=== PATIENT | female | born 1970 | race Caucasian/White ===

== ENCOUNTER → 2024-09-24 | Outpatient (CLI) | payer BC, SELFPAY ==
[2024-09-25 15:39] LABS: Clostridium Difficile PCR Negative (Negative)
[2024-10-02 06:27] LABS: Helicobacter pylori Ag, Stool* NOT DETECTED (NOT DETECTED)
== END | disposition home or self-care (01) ==
LOC: SLDO 13:20
PROVIDERS: PCP Family Medicine; Referring Provider Nurse Practitioner Family; Visit Provider Nurse Practitioner Family
DX: R19.7 Diarrhea, unspecified (principal)
CPT/HCPCS: 87015; 87045; 87046; 87177; 87209; 87338; 87493; 87899

== ENCOUNTER 2024-11-21 16:35 | Inpatient (IN) | payer BC, SELFPAY ==
[2024-11-21] VITALS (21 sets, daily range): BP systolic 68–99; BP diastolic 42–67; PULSE 98–108; RESP 12–26; TEMP 36.4–36.7; O2SAT 78–98; BMI 35.7
--- NOTE | 2024-11-21 18:00 | EKG_ITS ---
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
--- NOTE | 2024-11-21 18:19 | EDRME_ITS ---
Rapid Medical Screening Exam RME Arrival date/time: 11/21/24 16:35 Chief Complaint: Abdominal Pain Time Seen by Provider: 11/21/24 18:19 Vital signs: Vital Signs Temperature 98.1 F 11/21/24 17:59 Pulse Rate 100 11/21/24 17:59 Respiratory Rate 16 11/21/24 17:59 Pulse Oximetry (%) 95 11/21/24 17:59 Oxygen Delivery Method Room Air 11/21/24 17:59 RME Narrative: 54-year-old female with history of thyroid disease, hypertension, acute renal failure presenting to the emergency department with multiple days of nonbloody diarrhea with associated abdominal pain. Patient is dizzy and hypotensive in triage but awake and talking in full sentences. On exam the patient appears slightly pale, cap refill is normal. Talking in full sentences. Bilateral upper extremities with ecchymosis which is chronic No pedal edema Lungs Clear Heart tachycardia Differential diagnosis is good to be dehydration secondary to fluid loss secondary to diarrhea, electrolyte abnormality, GI bleed, sepsis, intra- abdominal catastrophe to include colitis, doubt AAA. Patient is afebrile with a temp of 98.1. She will be placed in room 5 and I will start with 30 mL/kg and send sepsis labs even though at this time she does not screen for sepsis. Patient has agreed to Larkin catheter..
--- NOTE | 2024-11-21 18:23 | XR_ITS ---
Examination: AP chest single view Technique one AP supine portable chest single view Exam date and time: August 21, 2023 1338 hrs. Indications: Hypertension today. Findings: Early pneumonia right upper lobe Bibasilar bronchiectasis Mild enlargement cardiac contour Mild to moderate vascular congestion Old right-sided rib fractures Impression: Early pneumonia right upper lobe
[2024-11-21] MEDS: SODIUM CHLORIDE 0.9% 1000 ML 1,710 ML 1710 ML IV (19:07)
[2024-11-21 19:27] LABS: Lactate (Lactic Acid) 3.2 mMol/L (0.4-2.0)
[2024-11-21 19:31] LABS: Basophils % (Auto) 1 % (0-2.5); Eosinophils % (Auto) 0 % (0-10); Hematocrit 34.9 % (36.0-46.0); Hemoglobin 11.3 g/dL (12.0-16.0); Immature Granulocytes % (Auto) 1 % (0-0); Immature Granulocytes Auto 0.04 Thou/mm3 (0.00-0.00); Lymphocytes # (Auto) 0.4 Thou/mm3 (1.0-4.8); Lymphocytes % (Auto) 7 % (10-50); Mean Corpuscular HGB Conc 32.4 g/dl (31.0-37.0); Mean Corpuscular Hemoglobin 32.3 pg (25.0-35.0); Mean Corpuscular Volume 100 fL (80-100); Monocytes # (Auto) 0.1 Thou/mm3 (0.0-0.8); Monocytes % (Auto) 3 % (0-12); Neutrophils # (Auto) 4.4 Thou/mm3 (1.8-7.7); Neutrophils % (Auto) 89 % (37-80); Nucleated Red Blood Cell % 0 /100 WBC (0); Platelet Count 409 Thou/mm3 (140-440); RDW Standard Deviation 49.9 fL (36.4-46.3); White Blood Count 4.9 Thou/mm3 (3.6-11.0)
--- NOTE | 2024-11-21 19:37 | PD.EDABDPN ---
ED Abdominal Pain RME/HPI General Chief Complaint: Abdominal Pain Stated complaint: ABD PAIN / BLOATING; LEFT SHOULDER PAIN, VOMITING Time seen by provider: 11/21/24 18:19 Arrival date/time: 11/21/24 16:35 Source: patient Mode of arrival: ambulatory Limitations: no limitations RME / HPI RME / HPI narrative: --- DR. KIRBY MAIN ED EVALUATION: 54-year-old female with history of thyroid disease, hypertension, acute renal failure presenting to the emergency department with multiple days of non-bloody diarrhea with associated abdominal pain. Patient is dizzy and hypotensive in triage but awake and talking in full sentences. Related Data Home Medications ?Medication ?Instructions ?Recorded ?Confirmed levothyroxine 100 mcg tablet 112 mcg PO ACBR #0 tabs 05/10/17 08/07/23 (Synthroid) montelukast 10 mg tablet 1 tab PO QDAY ##0 05/10/17 08/07/23 (Singulair) losartan 50 mg tablet 50 mg PO QDAY 08/22/21 01/22/22 conj estrogen-medroxyprogesterone 1 tab PO QDAY 10/20/21 08/07/23 0.625 mg-5 mg tablet (Prempro) lisinopril 20 mg tablet 20 mg PO QDAY 08/04/23 08/04/23 prednisone 10 mg tablet 10 mg PO QDAY 08/04/23 08/04/23 albuterol sulfate 90 mcg/actuation 2 inh inhalation Q4H PRN Wheezing 08/07/23 08/07/23 aerosol inhaler Previous Rx's ?Medication ?Instructions ?Recorded hydrocodone 10 mg-acetaminophen 1 tab PO Q4H PRN pain #6 tabs 08/19/21 325 mg tablet Allergies Allergy/AdvReac Type Severity Reaction Status Date / Time sulfamethoxazole Allergy Unknown SERUM Verified 11/21/24 16:38 SICKNESS trimethoprim Allergy Unknown SERUM Verified 11/21/24 16:38 SICKNESS Review of Systems Review of Systems Systems Reviewed: All systems reviewed, normal except as documented Past Medical History Past Medical History NEUROLOGIC: Negative Neurological Disorders or Seizures CARDIAC: Positive Cardiac Disorders and Hypertension; Negative Congestive Heart Failure RESPIRATORY: Positive Asthma; Negative Chronic Obstructive Pulmonary Disease (COPD) GASTROINTESTINAL: Positive Gastrointestinal Disorders, Ulcer and Obesity; Negative Hepatitis or Colorectal Cancer GENITOURINARY: Positive Genitourinary Disorders and Kidney Stones; Negative Renal Disease REPRODUCTIVE: Positive Endometriosis; Negative Breast Cancer MUSCULOSKELETAL: Positive Musculoskeletal Disorders and Rheumatoid Arthritis; Negative Bone Cancer ENT: Positive Ear Infection ENDOCRINE: Positive Endocrine Disorders, Hypoglycemia, Hyperthyroidism and Hypothyroidism; Negative Diabetes Mellitus Type 1 or Diabetes Mellitus Type 2 HEMATOLOGIC: Positive Blood Disorders and Anemia; Negative Sickle Cell Disease PSYCHO/SOCIAL: Positive Depression and Anxiety OTHER HISTORY: Positive Autoimmune Disease, Falls and Chicken Pox; Negative Blood Transfusions, Blood Transfusion Reaction, Anesthesia Reactions, Organ Transplant, MRSA, VRSA, Vancomycin-Resistant Enterococci, Breast Cancer, Cervical Cancer, Colorectal Cancer, Lung Cancer or Ovarian Cancer Family History FAMILY HISTORY: Positive Family Cardiac Disorders, Family Surgery and Family Anesthesia Reaction; Negative Family Psychiatric Problems, Family Respiratory Disorders, Family Gastrointestinal Problems or Family Cancer Surgical History SURGICAL: Positive Gastric Bypass Surgery; Negative Cardiac Surgery, Endocrine Surgery, Ear Surgery, Nephrectomy, Joint Replacement, Neurologic Surgery, Mastectomy, Tubal Ligation or Organ Transplant Social History SMOKING STATUS: Never smoker SUBSTANCE USE: does not use ED Exam Narrative Physical exam: GENERAL: In general the patient is awake, interactive, in an emergency department rlima. She is talking in full sentences. HEAD/EYES/EARS/NOSE/THROAT: normo-cephalic, atraumatic, mucus membranes are moist. No cervical tenderness palpation midline. Supple neck. CARDIOVASCULAR: Tachycardic. The patient appears slightly pale, normal capillary refill. CHEST/PULMONARY: normal chest rise and fall, good air movement, clear to auscultation bilaterally, normal inspiratory to expiratory ratios without evidence of respiratory distress. ABDOMEN: soft, not tender, no masses appreciated BACK: normal range of motion without pain. NEUROLOGICAL: cranio-facial features are symmetric, moves all four extremities equally without obvious limitations or weakness. EXTREMITY: no tenderness to palpation over the long bones or large joints of the bilateral upper and lower extremities, no joint swelling, no joint erythema, no signs of trauma, no unilateral leg swelling and no peripheral edema. Bilateral upper extremities with ecchymosis which is chronic. SKIN: warm, dry, well-perfused, no jaundice, no rash, no telangiectasias or petechia. PSYCH: calm, cooperative, no evidence of psychosis or agitation General Limitations: Present no limitations Course Course Course Narrative: Chest x-ray has been ordered to aid in determining etiology of hypotension/cough. Refer to ROS for associated respiratory symptoms. See physical exam for additional information if not listed in ROS 2222: Sepsis alert initiated. Orders made at this time are congruent with ED Adult Sepsis Order List. Re-evaluation is to be completed. 2227: IVC collapses, 3rd liter started. hgb stable. 2300: Sepsis reassessment performed consisting of lab review, vitals, physical exam including auscultation of heart, lungs, and visual evaluation of capillary refills, mucosal membranes and extremities. Quality Measures Current suspected stage: sepsis Possible source: unknown Blood cultures ordered: yes Antibiotic ordered: Yes Pertinent labs: 11/21/24 11/21/24 18:57 22:58 Lactic Acid 3.2 H mMol/L 2.3 H mMol/L (0.4-2.0) (0.4-2.0) Procalcitonin 19.01 H ng/ml (0.0-0.49) sepsis Orders Category Date Time Status Fresh Work Inspector STAT Care 11/21/24 22:33 Active Continuous Pulse Oximetry STAT Care 11/21/24 22:33 Active EKG (ED ONLY) *Do not use* NOW Care 11/21/24 18:00 Completed L[place]in to [place] Routine Care 11/21/24 18:22 Ordered NPO STAT Care 11/21/24 22:33 Active Strict Intake and Output Routine Care 11/21/24 22:[address] angio chest abdomen pelvis Stat Exams 11/21/24 22:33 Ordered CXRP [XR chest 1V portable] Stat Exams 11/21/24 18:23 Completed EKG (ED Only) Stat Exams 11/21/24 18:00 Draft BMP [Basic Metabolic Panel] Stat Lab 11/21/24 22:58 Received BNP [B-Type Natriuretic Peptide] Stat Lab 11/21/24 18:57 Completed Blood Culture (Lab) Stat Lab 11/21/24 22:48 Received CBC Stat Lab 11/21/24 18:57 Completed Comprehensive Metabolic Panel Stat Lab 11/21/24 18:57 Completed LDH (Lactate Dehydrogenase) Stat Lab 11/21/24 22:58 Received Lactic Acid [Lactate (Lactic Acid)] Stat Lab 11/21/24 18:57 Completed Lactic Acid, 3 HR Stat Lab 11/21/24 22:58 Completed Phosphorous Stat Lab 11/21/24 22:58 Received Procalcitonin Stat Lab 11/21/24 18:57 Completed Troponin I Stat Lab 11/21/24 18:57 Completed Urinalysis Stat Lab 11/21/24 22:33 Ordered Urinalysis, C/S if Indicated Stat Lab 11/21/24 21:37 Completed Urine Culture Stat Lab 11/21/24 22:33 Ordered Azithromycin Inj [Zithromax Inj] 500 mg Med 11/22/24 21:00 Pending Sodium Chloride 0.9% 250 ml [Ns] 250 ml IV QDAY@2100 Azithromycin Inj [Zithromax Inj] 500 mg Med 11/21/24 22:30 Discontinued Sodium Chloride 0.9% 250 ml [Ns] 250 ml IV X1 Sodium Chloride 0.9% 1000 ml [Ns] 1,000 ml Med 11/21/24 20:26 Discontinued IV 999 mls/hr Sodium Chloride 0.9% 1000 ml [Ns] 1,000 ml Med 11/21/24 22:19 Discontinued IV 999 mls/hr Sodium Chloride 0.9% 1000 ml [Ns] 1,710 ml Med 11/21/24 18:22 Discontinued IV 1,710 mls/hr cefTRIAXone [Rocephin] 1,000 mg Med 11/21/24 22:16 Discontinued Sodium Chloride 0.9% (P) [Ns 0.9% (P)] 50 ml IV X1 Oxygen Delivery NOW RT 11/21/24 22:33 Active Vital Signs Vital signs: Vital Signs Temperature 98.1 F 11/21/24 17:59 Pulse Rate 100 11/21/24 17:59 Respiratory Rate 16 11/21/24 17:59 Pulse Oximetry (%) 95 11/21/24 17:59 Oxygen Delivery Method Room Air 11/21/24 17:59 Procedures -ED Procedure Comment EKG manual reading, 11/21/2024 1859 hours, my interpretation: Sinus rhythm. No ST elevations or depressions. QTc is 393. Impression normal EKG. Abdominal Pain MDM MDM Narrative MDM Narrative:: Differential diagnosis is dehydration secondary to fluid loss secondary to diarrhea, electrolyte abnormality, GI bleed, sepsis, intra-abdominal catastrophe to include colitis, doubt AAA. Patient is afebrile with a temp of 98.1. She will be placed in room 5 and I will start with 30 mL/kg and send sepsis labs even though at this time she does not screen for sepsis. Patient has agreed to Larkin catheter. ? Scribe Attestation: I, Janice Greer, am scribing for and in the presence of Dr. Kate. Provider Notation: Although this document has been carefully reviewed, there may still be some phonetic and other typographical errors. These errors are purely grammatical due to imperfections in the software program and should not be construed in any way to compromise the substance of the patient's medical care during this visit. Patient data External records reviewed:: [facility] previous records Clinical information provided by:: patient Social determinants that could affect healthcare access:: none Patient has the following chronic illnesses:: thyroid disease, hypertension, acute renal failure, asthma, endometriosis, rheumatoid arthritis, hyperthyroidism, anxiety, depression, anemia, gastric bypass surgery How is presenting disease/condition affected by chronic disease/condition?: uneffected by Evaluation data The following diagnostics were reviewed and interpreted by me:: lab results, radiology exam(s) and EKG tracing(s) Lab and/or radiology exams considered but not ordered:: None Interpretation Summary: CXR: Patient had a chest xray that was ordered, reviewed, and interpreted by myself while the patient was actively inside the emergency department receiving diagnostic evaluation, the xray was medically necessary. Chest X-Ray Findings: Early pneumonia right upper lobe Bibasilar bronchiectasis Mild enlargement cardiac contour Mild to moderate vascular congestion Old right-sided rib fractures. Diagnostic impression: Early pneumonia right upper lobe Medications / Prescriptions Medications or Prescriptions considered but not ordered:: None Medication administrations:: Medication Administration History Azithromycin 500 mg/ Sodium (Chloride) 250 mls @ 250 mls/hr IV QDAY@2100 ZAK Stop: 11/29/24 20:59 Discontinued Medications Sodium Chloride (Ns) 1,710 mls @ 1,710 mls/hr 30 ml/kg infuse over 60 min (1710 ml) IV .Q1H ONE Stop: 11/21/24 19:21 Last Infusion: 11/21/24 20:20 Dose: Infused Documented By: Admin: 11/21/24 19:07 Dose: 1,710 mls/hr Documented By: DEVIN Sodium Chloride (Ns) 1,000 mls @ 999 mls/hr IV .Q1H1M ONE Stop: 11/21/24 21:26 Last Infusion: 11/21/24 21:40 Dose: Infused Documented By: Admin: 11/21/24 20:29 Dose: 999 mls/hr Documented By: CCT Ceftriaxone Sodium 1,000 mg/ (Sodium Chloride) 50 mls @ 100 mls/hr IV X1 ONE Stop: 11/21/24 22:45 Last Infusion: 11/21/24 23:30 Dose: Infused Documented By: Admin: 11/21/24 23:00 Dose: 100 mls/hr Documented By: CCT Azithromycin 500 mg/ Sodium (Chloride) 250 mls @ 250 mls/hr IV X1 ONE Stop: 11/21/24 23:29 Last Admin: 11/21/24 23:35 Dose: 250 mls/hr Documented By: GB Sodium Chloride (Ns) 1,000 mls @ 999 mls/hr IV .Q1H1M ONE Stop: 11/21/24 23:19 Last Infusion: 11/21/24 23:30 Dose: Infused Documented By: Admin: 11/21/24 22:27 Dose: 999 mls/hr Documented By: CCT As above Consultations Consultation(s) initiated? (list below): Yes Consultation #1 (Physician, Specialty, Details): Hospitalist team made aware of the patient?s HPI, PMHx, lab and/or radiology results. Treatment plan was discussed. Will admit for further evaluation and management. Accepts patient for admission. Time: 00:07 Diagnosis Differential diagnosis abdominal pain: other (dehydration secondary to fluid loss secondary to diarrhea, electrolyte abnormality, GI bleed, sepsis, intra-abdominal catastrophe to include colitis) Most likely diagnosis given after review of the tests above:: Acute renal failure, Nausea, vomiting and diarrhea, Sepsis, Community acquired pneumonia Admission Indicated Admission indicated?: indicated Admission Request Was there a request for admission?: Yes Admission Attestation Admission request attestation: Discussed case with [] from Hospitalist service regarding admission. Discussed patients ED course, exam findings, labs, and radiology results. The Hospitalist [agrees,declines] to accept the patient for admission. Disposition Plan Disposition Plan: Admit Critical Care Time Critical Care Time Critical Care Time: Yes Total Critical Care Time (min.): 60 Attestation: The high probability of sudden, clinically significant deterioration in the patient?s condition required the highest level of my preparedness to intervene urgently. The services I provided to this patient were to treat and/or prevent clinically significant deterioration. Services included the following: chart data review, reviewing nursing notes and/or old charts, documentation time, strategic solutions consultant collaboration regarding findings and treatment options, medication orders and management, direct patient care, vital sign assessments and ordering, interpreting and reviewing diagnostic studies and lab tests. Aggregate critical care time includes only time during which I was engaged in work directly related to the patient?s care, as described above, whether at bedside or elsewhere in the Emergency Department. It did not include time spent performing other reported procedures or the services of residents, students, nurses or physician assistants. Discharge Plan Plan Patient Disposition: Admit Acute Care w/in Hospital Patient condition on transfer: Stable Prescriptions/Referrals Prescriptions/Med Rec: No Action Prempro 0.625-5 mg tablet 1 tab PO QDAY levothyroxine [Synthroid] 100 MCG tablet 112 mcg PO ACBR Qty: 0 montelukast [Singulair] 10 MG tablet 1 tab PO QDAY Qty: 0 hydrocodone-acetaminophen 10-325 mg tablet 1 tab PO Q4H MDD 4 PRN (Reason: pain) Qty: 6 0RF Hold Instructions: Resume on 08/14/23. Please hold until evaluated by neurology losartan 50 mg tablet 50 mg PO QDAY Patient Comments: TAKE 1 TABLET BY MOUTH EVERY DAY prednisone 10 mg tablet 10 mg PO QDAY Patient Comments: TAKE 1 TABLET BY MOUTH EVERY DAY lisinopril 20 mg Tablet 20 mg PO QDAY albuterol sulfate 90 mcg/actuation HFA aerosol inhaler 2 inh INHALATION Q4H PRN (Reason: Wheezing) Patient Comments: TAKE 2 PUFFS BY MOUTH EVERY 4 HOURS NEEDED Referrals: Corazon Hermosillo MD [Primary Care Provider] - In 1 week Problem List Clinical Impression: Acute renal failure, Nausea, vomiting and diarrhea, Sepsis, Community acquired pneumonia Patient/Caregiver Discharge Instructions Print Language: Yi Stand Alone Forms: Brenda Award Info., Patient Portal Info Letter
[2024-11-21 19:47] LABS: B-Type Natriuretic Peptide 21 pg/mL (0-100)
[2024-11-21 19:55] LABS: Alanine Aminotransferase 20 U/L (10-49); Albumin, Serum 3.1 gm/dL (3.5-5.0); Albumin/Globulin Ratio 1.7 (1.2-2.2); Alkaline Phosphatase 81 U/L (46-116); Anion Gap 13 (7-16); BUN/Creatinine Ratio 18 Ratio (12-20); Bilirubin,Total 0.4 mg/dL (0.3-1.2); Blood Urea Nitrogen 59 mg/dL (9-23); Calcium 7.8 mg/dL (8.3-10.6); Calcium (Corrected) 8.5 mg/dL (8.5-10.1); Carbon Dioxide 18.3 mMol/L (20.0-31.0); Chloride 98 mMol/L (98-107); Creatinine (Component) 3.2 mg/dL (0.6-1.3); Estimated Creatinine Clearance 23.2 mL/min (>60); Globulin 1.8 gm/dL (2.3-3.5); Glucose 161 mg/dL (74-106); Osmolality,Calculated 278 (275-295); Potassium 5.3 mMol/L (3.4-5.1); Procalcitonin 19.01 ng/ml (0.0-0.49); Sodium 129 mMol/L (136-145); Total Protein 4.9 gm/dL (5.7-8.2); Troponin I < 0.020 ng/mL (0.0-0.045); eGFR 17 See Note
[2024-11-21] MEDS: SODIUM CHLORIDE 0.9% 1000 ML 1,000 ML 999 ML IV ×2 (20:29→22:27)
[2024-11-21 21:51] LABS: Collection Type, Urine Catheter; WBC,Urine 0 /hpf (0-5)
[2024-11-21 22:04] LABS: Bilirubin,Urine Negative (Negative); Blood,Urine 1+ (Negative); Clarity,Urine Clear (Clear/Hazy); Color,Urine Lt-Yellow (Lt Yel-Yel); Glucose, Urine Negative (Negative); Ketones,Urine Negative (Negative); Specific Gravity,Urine 1.013 (1.001-1.035)
[2024-11-21 22:05] LABS: Bacteria,Urine Rare; Culture Indicated,Urine Not Indicated; Leukocyte Esterase,Urine Negative (Negative); Nitrite,Urine Negative (Negative); Protein,Urine 1+ (Neg - Trace); RBC,Urine 1 /hpf (0-3); Squamous Epithelial Cell,Urine < 1 /hpf (0-5); Urobilinogen,Urine Negative mg/dL (0.0-1.0)
--- NOTE | 2024-11-21 22:10 | PC.NURSE ---
Dr. Dejesus at bedside. Aware of manual BP 85/60 HR 102, pt already received 2700ml of NS. Urine Output 550ml. Per MD colmenares to infuse another 1L NS.
[2024-11-21 22:22] LABS: Reflex Lactate? Y
[2024-11-21] MEDS: cefTRIAXone 1,000 MG in SODIUM CHLORIDE 0.9% (P) 50 ML 100 MG IV (23:00)
[2024-11-21 23:07] LABS: Lactic Acid, 3 HR 2.3 mMol/L (0.4-2.0)
[2024-11-21] MEDS: AZITHROMYCIN INJ 500 MG in SODIUM CHLORIDE 0.9% 250 ML 250 ML 250 MG IV (23:35)
[2024-11-21 23:53] LABS: Anion Gap 10 (7-16); BUN/Creatinine Ratio 22 Ratio (12-20); Blood Urea Nitrogen 54 mg/dL (9-23); Chloride 107 mMol/L (98-107); Creatinine (Component) 2.5 mg/dL (0.6-1.3); Estimated Creatinine Clearance 29.7 mL/min (>60); Glucose 128 mg/dL (74-106); LDH (Lactate Dehydrogenase) 352 U/L (120-246); Osmolality,Calculated 288 (275-295); Phosphorous 6.4 mg/dL (2.4-5.1); Potassium 5.3 mMol/L (3.4-5.1); Sodium 136 mMol/L (136-145); eGFR 22 See Note
[2024-11-21 23:59] LABS: Calcium 6.8 mg/dL (8.3-10.6)
[2024-11-22] VITALS (204 sets, daily range): BP systolic 58–194; BP diastolic 40–140; PULSE 48–134; RESP 12–96; TEMP 35.8–36.3; O2SAT 80–99; BMI 43.8
--- NOTE | 2024-11-22 00:15 | PC.NURSE ---
Resident Dr. Maldonado at bedside. Pt is alert/oriented x3. Respirations are even and unlabored. No s/s of acute distress noted.
[2024-11-22 00:22] LABS: Aspartate Amino Transferase 45 U/L (0-34)
[2024-11-22] MEDS: RINGERS LACTATED 500 ML 500 ML 999 ML IV (00:59)
--- NOTE | 2024-11-22 00:59 | PD.RESHP ---
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 She follows up with her PCP Dr. Hermosillo. She presented today with a chief complaint of intractable diarrhea from 1 week. Patient stated that 1 week ago diarrhea started. It was described as watery, no blood or mucus and multiple episodes too much to count. She spends an entire night on the toilet. Associated with generalized weakness, malaise, decreased appetite, abdominal bloating/pain. Last episode just prior to presenting to the ED. Patient says she can tolerate food but has decreased appetite due to abdominal bloating and pain. She also feels to have a bowel movement shortly after eating. Denies any fever, vomiting or recent street food. Also denies any sick contacts. Of note patient recently traveled to [place] approximately 2 weeks ago. Returned from her trip on 10/30/2024. She reported to partaking in various street and restaurant food during her stay. On 11/16/2024 patient presented to her PCP who diagnosed her with pneumonia and prescribed her a 5-day course of azithromycin p.o. and prednisone 40 Mg p.o. daily x 5 days, completed on 11/20/2024. Upon review patient denies any chest pain, SOB, PND/orthopnea, palpitations, dizziness or headache. ED course: BP 87/67, pulse 105, RR 16, T97.7F, SpO2 98% on room air. Labs significant for Hb 11.3, HCT 34.9, NA 136, K5.3, BUN 54, CR 2.5, LA 2.3, Ca 6.8, Phos 6.4, LDH 352, Pro-Tello 19, TSH 5.41. Chest x-ray significant for mild RUL consolidation and bibasilar bronchiectasis. No signs of pulmonary edema or pleural effusion. In the ED patient received 4L normal saline IVF bolus, azithromycin and ceftriaxone IV x 1. Patient will be admitted for intractable diarrhea, viral versus bacterial. GI, Dr. Palacios consulted and is closely following the case. Review of Systems Review of Systems Narrative Review of Systems: GENERAL: Denies fever/chills or diaphoresis. HEENT: Denies headaches or visual changes. Denies discharge. Neuro: Denies unusual weakness or difficulty speaking. CARDIO: As above PULM: Denies SOB, couging or wheezing. GI: As above URO: Denies buring/itching/pain/urinary changes. [employer]: Menopause 6 years ago MSK/EXT/SKIN: Denies joint/skeletal/muschle pain, issues/changes in upper or lower extremities, itchiness, or superficial pain. PSYCH: Cooperative, pleasant mood & affect. The rest of the review of systems is otherwise negative. Past Medical History Past Medical History Comments PMH COMMENT: Past medical history: Hypothyroid x 30 years Rheumatoid arthritis x 20 years Essential hypertension Seasonal allergies Medication list: ? Albuterol inhaler as needed ? Hormone replacement therapy [combined] ? Prednisone 8?10 Mg p.o. daily ? Levothyroxine 125 mcg p.o. daily ? Lisinopril 20 Mg p.o. daily ? Montelukast 10 Mg p.o. daily ? Rinvoq Past surgical history: ? Lynn-en-Y gastric bypass 20 years ago ? Cholecystectomy 2018 ? Appendectomy 2018 ? 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 Marital Status: , no kids Tobacco use: Denies ETHO use: 2-3 drinks per year Illicit drug use: Denies Social History Note: lives with Family History: Family history of hypo and hyperthyroidism Mother?DM Father?VA in 60s Exam Vital Signs Temp Pulse Resp BP Pulse Ox O2 Del Method 97.7 F 105 H 16 87/59 L 97 Room Air 11/21/24 23:00 11/22/24 00:04 11/22/24 00:04 11/22/24 00:00 11/22/24 00:00 11/22/24 00:00 Narrative Exam Constitutional Alert, oriented x 3 and mild distress. Middle-aged, obese female. Decreased skin turgor HEENT Vision grossly intact. Patent nares. Trachea midline Respiratory Chest normal on inspection and clear auscultation bilaterally Cardiovascular S1 and S2 audible, RRR. No murmurs carotid bruit. JVD not assessed. Abdominal Soft, obese and generalized tenderness to palpation in all quadrants. BS + Genitourinary No bladder tenderness, no flank pain. Normal to palpation Musculoskeletal Extremities tone within normal limits. Trace LE edema Neurological CN II - XII grossly intact. Extremity motor and sensation grossly intact. Skin Warm, dry and intact. Ecchymoses on bilateral extensor surfaces of forearms Psychiatric Patient has good affect, is cooperative Results: Labs 11/22/24 05:00 11/22/24 02:34 Labs: Short CBC 11/21/24 Range/Units 18:57 WBC 4.9 (3.6-11.0) Thou/mm3 Hgb 11.3 L (12.0-16.0) g/dL Hct 34.9 L (36.0-46.0) % Plt Count 409 (140-440) Thou/mm3 BMP 11/21/24 11/21/24 18:57 22:58 Sodium 129 L 136 Potassium 5.3 H 5.3 H Chloride 98 107 Carbon Dioxide 18.3 L 19.0 L BUN 59 H 54 H Creatinine 3.2 H 2.5 H D Glucose 161 H 128 H Calcium 7.8 L 6.8 L* Cardiac Enzymes 11/21/24 Range/Units 18:57 Troponin I < 0.020 (0.0-0.045) ng/mL Liver Function 11/21/24 Range/Units 18:57 Total Bilirubin 0.4 (0.3-1.2) mg/dL AST 45 H (0-34) U/L ALT 20 (10-49) U/L Alkaline Phosphatase 81 (46-116) U/L Albumin 3.1 L (3.5-5.0) gm/dL Urine 11/21/24 Range/Units 21:37 Urine Color Lt-Yellow (Lt Yel-Yel) Urine Clarity Clear (Clear/Hazy) Urine pH 6.0 (5.0-7.0) Ur Specific [place] 1.013 (1.001-1.035) Urine Protein 1+ A (Neg - Trace) Urine Glucose (UA) Negative (Negative) Quality Measures Quality Measures sepsis Current suspected stage: ruled out Possible source: unknown Blood cultures ordered: yes Antibiotic ordered: Yes Medications Home Medications and Allergies Home Medications ?Medication ?Instructions ?Recorded ?Confirmed ?Type levothyroxine 100 mcg tablet 112 mcg PO ACBR #0 tabs 05/10/17 08/07/23 History (Synthroid) montelukast 10 mg tablet 1 tab PO QDAY ##0 05/10/17 08/07/23 History (Singulair) losartan 50 mg tablet 50 mg PO QDAY 08/22/21 01/22/22 History conj estrogen-medroxyprogesterone 1 tab PO QDAY 10/20/21 08/07/23 History 0.625 mg-5 mg tablet (Prempro) lisinopril 20 mg tablet 20 mg PO QDAY 08/04/23 08/04/23 History prednisone 10 mg tablet 10 mg PO QDAY 08/04/23 08/04/23 History albuterol sulfate 90 mcg/actuation 2 inh inhalation Q4H PRN Wheezing 08/07/23 08/07/23 History aerosol inhaler Allergies Allergy/AdvReac Type Severity Reaction Status Date / Time sulfamethoxazole Allergy Unknown SERUM Verified 11/21/24 16:38 SICKNESS trimethoprim Allergy Unknown SERUM Verified 11/21/24 16:38 SICKNESS Visit Medications Acetaminophen (Acetaminophen 325 Mg Tablet) 650 mg PO Q6H PRN PRN Reason: Fever >100.3 or pain Stop: 12/22/24 00:44 Hydrocodone Bitart/Acetaminophen (Hydrocodone/Apap 5/325 Tablet) 1 tab PO Q4HR PRN PRN Reason: PAIN SCALE 4-10(Mod-Sev Stop: 11/27/24 00:50 Al Hydrox/Mg Hydrox/Simethicone (Mg Hyd/Al Hyd/Sandie (Maalox Reg) Susp 30 Ml Udc) 30 ml PO Q4HR PRN PRN Reason: UPSET STOMACH/INDIGESTION Stop: 12/22/24 00:52 Albuterol/Ipratropium (Albuterol/Ipratropium (Duoneb) Rt Marichuy 3 Ml Nebu) 3 ml INH Q2HR PRN PRN Reason: SHORTNESS OF BREATH OR WHEEZE Stop: 12/22/24 00:44 Lactated Ringer's (Lactated Ringers) 500 mls @ 999 mls/hr IV .Q31M ONE Stop: 11/22/24 01:23 Ondansetron HCl (Ondansetron Inj 2 Mg/Ml Inj 2 Ml) 4 mg IV Q6H PRN; Protocol PRN Reason: NAUSEA OR VOMITING Stop: 12/22/24 00:50 Discontinued Medications Sodium Chloride (Ns) 1,710 mls @ 1,710 mls/hr 30 ml/kg infuse over 60 min (1710 ml) IV .Q1H ONE Stop: 11/21/24 19:21 Last Infusion: 11/21/24 20:20 Dose: Infused Sodium Chloride (Ns) 1,000 mls @ 999 mls/hr IV .Q1H1M ONE Stop: 11/21/24 21:26 Last Infusion: 11/21/24 21:40 Dose: Infused Ceftriaxone Sodium 1,000 mg/ (Sodium Chloride) 50 mls @ 100 mls/hr IV X1 ONE Stop: 11/21/24 22:45 Last Infusion: 11/21/24 23:30 Dose: Infused Azithromycin 500 mg/ Sodium (Chloride) 250 mls @ 250 mls/hr IV QDAY@2100 ZAK Stop: 11/29/24 20:59 Azithromycin 500 mg/ Sodium (Chloride) 250 mls @ 250 mls/hr IV X1 ONE Stop: 11/21/24 23:29 Last Admin: 11/21/24 23:35 Dose: 250 mls/hr Sodium Chloride (Ns) 1,000 mls @ 999 mls/hr IV .Q1H1M ONE Stop: 11/21/24 23:19 Last Infusion: 11/21/24 23:30 Dose: Infused Assessment & Plan Plan Patient is a 54-year-old female with past medical history of rheumatoid arthritis x 20 years, hypothyroid x 30 years, essential hypertension, 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 She follows up with her PCP Dr. Hermosillo. She presented today with a chief complaint of intractable diarrhea from 1 week. Patient will be admitted for intractable diarrhea, viral versus bacterial. GI, Dr. Palacios consulted and is closely following the case. 1. Hypotension 2. Intractable diarrhea, viral versus bacterial 3. Abdominal Pain Patient presented with intractable diarrhea for the past week. Recent antibiotic use and also recent travel to [place]. Patient chronically on prednisone for RA On exam she has generalized abdominal pain tender to palpation in all quadrants. DDx: Traveler's diarrhea, colitis, C. difficile, inflammatory bowel disease, microscopic colitis KUB x-ray?pending CT C/A/P?pending Lactic acid 2.3, LDH 352, WBC 4.9 In the ED patient received 4L normal saline IVF bolus, azithromycin and ceftriaxone IV x 1. Plan: ? [place] diet ? Encourage p.o. fluid intake ? Lactated Ringer's 500 mL IVF bolus ? Fidaxomicin 200 Mg p.o. twice daily ? Maalox 30 mL p.o. every 4 hourly as needed ? Lactobacillus 1 cap p.o. twice daily ? Hydrocodone/acetaminophen 5/325 1 tab p.o. Q4 hourly as needed for pain 4?10. ? Contact precautions ? Stool studies ordered including calprotectin, Giardia, ova and parasites, H. pylori, norovirus, stool culture, stool for WBCs and C. difficile. ? GI, Dr. Palacios consulted and closely following the case. Appreciate recommendations ? Infectious disease, Dr Forte consulted and closely following the case. Appreciate recommendations. 4. Acute kidney injury On admission patient's CR 3.2. From chart review baseline CR between 1?1.2 Plan: - Lactated Ringer's 500 mL IVF bolus ? Encourage p.o. fluid intake ? Renally dose medication ? Avoid nephrotoxic agents 5. Hyperkalemia 6. Hypocalcemia 7. Hyperphosphatemia Patient has history of Lynn en Y Gastric bypass 20 years ago. Since then she has been hypocalcemic and low Vitamin D levels K5.3, Ca 6.8, Phos 6.4 Plan: ? Calcium acetate 667 Mg p.o. 3 times daily with meals for hypocalcemia and hyperphosphatemia. 8. Hypothyroidism Patient's home medication levothyroxine 125 mcg p.o. daily Patient's last dose increase was 2 months ago Plan: ? Resume home medication levothyroxine 125 mcg p.o. daily 9. Rheumatoid arthritis Patient's home medication Rinvoq and prednisone 8 Mg p.o. daily Plan: ? Due to diarrhea and etiology possibly infectious, home medication on hold for now. 10. Essential hypertension Home medication lisinopril 20 Mg p.o. daily Patient currently hypotensive with BP 81/47 MAP 58 Plan: ? Home medication on hold for now 11. Menopause on Hormone replacement Therapy Patient had menopause for past 6 years and in on combined HRT as home medication. Plan: - Day team to decide when to resume home medication Health maintenance: Disposition: Pending stool studies. IVF. GI and ID consult Diet: [place] diet Lines: pIVs GI Prophylaxis: None Thrombo Prophylaxis: SCDs Code status: FULL CODE Plan of care discussed with Attending Dr. Dayton Maldonado MD PGY 1 Attending Provider Attestation/Addendum I have examined the patient, reviewed labs and imaging findings, discussed the case with the resident(s), and reviewed entered orders. I agree with the plan of care as outlined in this note, with these additional summaries/recommendations: 54F with h/o RA on chronic prednisone, hypothyroidism, gastric bypass, bilateral nephrolithiasis who presented to the ED with chief complaint of intractable diarrhea, abdominal pain that has been ongoing for ~1 week. She reports recent h/o URI with prednisone and azithromycin given within the last week, as well as h/o ciprofloxacin and azitthromycin given in late september. Patient severely hypotensive on arrival and received 4.5 L of IVF with still borderline BPs. Labs showed hyponatremia, hyperkalemia, bicarb of 18, hypocalcemia, lactic acid of 3.2 with pending imaging at this time. Will admit for severe dehydration and sepsis likely 2/2 intraabdominal source and investigation of etiology of diarrhea with C. difficile precautions in place. Marin Burris MD
--- NOTE | 2024-11-22 01:40 | PC.NURSE ---
Dr. Burris at bedside. Aware BP is still low after 500ml of LR. Pt is alert/oriented x3. Respirations are even and unlabored. No s/s of acute distress noted. No new orders received at this time.
--- NOTE | 2024-11-22 01:52 | XR_ITS ---
Examination: Abdomen AP single view Technique: AP portable supine abdomen, single view Exam date and time: November 22, 2024 at 0214 hrs. Indications: Abdominal pain beginning 2 weeks ago. Findings: Nonobstructive bowel gas pattern No free air, however the films do not include the hemidiaphragms Moderate osteopenia No renal or ureteral calculi Impression: Nonobstructive bowel gas pattern
--- NOTE | 2024-11-22 02:25 | PC.NURSE ---
Called hospitalist, spoke to Dr. Burris. BP is still low 71/49 HR 103. No new orders received at this time.
--- NOTE | 2024-11-22 02:50 | PC.NURSE ---
Dr. Skelton here in ER. Made aware BP is now 61/45, HR 108. Pt is alert/oriented x3. No s/s distress noted. Per MD, will put in new orders.
[2024-11-22 02:52] LABS: Basophils % (Auto) 1 % (0-2.5); Eosinophils % (Auto) 0 % (0-10); Hematocrit 32.7 % (36.0-46.0); Hemoglobin 10.9 g/dL (12.0-16.0); Immature Granulocytes % (Auto) 1 % (0-0); Immature Granulocytes Auto 0.04 Thou/mm3 (0.00-0.00); Lymphocytes # (Auto) 0.5 Thou/mm3 (1.0-4.8); Lymphocytes % (Auto) 10 % (10-50); Mean Corpuscular HGB Conc 33.3 g/dl (31.0-37.0); Mean Corpuscular Hemoglobin 33.4 pg (25.0-35.0); Mean Corpuscular Volume 100 fL (80-100); Monocytes # (Auto) 0.1 Thou/mm3 (0.0-0.8); Monocytes % (Auto) 2 % (0-12); Neutrophils % (Auto) 87 % (37-80); Nucleated Red Blood Cell % 0 /100 WBC (0); Platelet Count 320 Thou/mm3 (140-440); Red Blood Count 3.26 Miln/mm3 (4.00-5.20); White Blood Count 4.6 Thou/mm3 (3.6-11.0)
[2024-11-22] MEDS: HYDROCORTISONE SOD SUCC INJ 100 MG VIAL IV (02:58)
[2024-11-22] MEDS: Norepinephrine/NS 16mg/250ml 16 MG/250 ML BAG 9.143 MG IV (03:10)
--- NOTE | 2024-11-22 03:20 | PC.NURSE ---
MD Steele at bedside explaining central line placement to pt. Pt agrees to central line at this time, stating she does not want staff to attempt peripheral lines anymore.
[2024-11-22 03:30] LABS: Alanine Aminotransferase 17 U/L (10-49); Albumin, Serum 2.6 gm/dL (3.5-5.0); Albumin/Globulin Ratio 1.6 (1.2-2.2); Alkaline Phosphatase 80 U/L (46-116); Anion Gap 11 (7-16); Aspartate Amino Transferase 44 U/L (0-34); BUN/Creatinine Ratio 22 Ratio (12-20); Bilirubin,Total < 0.2 mg/dL (0.3-1.2); Blood Urea Nitrogen 48 mg/dL (9-23); Calcium (Corrected) 7.9 mg/dL (8.5-10.1); Chloride 107 mMol/L (98-107); Creatinine (Component) 2.2 mg/dL (0.6-1.3); Estimated Creatinine Clearance 33.8 mL/min (>60); Globulin 1.6 gm/dL (2.3-3.5); Glucose 125 mg/dL (74-106); Osmolality,Calculated 283 (275-295); Potassium 5.2 mMol/L (3.4-5.1); Sodium 135 mMol/L (136-145); Total Protein 4.2 gm/dL (5.7-8.2); eGFR 26 See Note
[2024-11-22 03:33] LABS: Calcium 6.8 mg/dL (8.3-10.6)
[2024-11-22 03:41] LABS: Stool for WBCs 1+ (Negative)
--- NOTE | 2024-11-22 04:00 | PD.RESPROC ---
Procedures Procedure Date / Time 11/22/24 0400 Procedure Narrative Procedure Narrative: Central Line Procedure Note Indication: Hypotension/Sepsis/Need for Pressors Central Line Location: Right Internal Jugular Vein Procedure Work Study Student: Royer Steele MD Attending Physician: Romy Rubio Present During Procedure: Yes Consent: Consent was obtained from patient prior to the procedure. Indications, risks and benefits were discussed prior to the procedure. PROCEDURE SUMMARY: My hands were washed immediately prior to the procedure. I wore a surgical cap, mask with protective eyewear, full gown and sterile gloves throughout the procedure. The patient was placed in Trendelenburg position. The Right neck was prepped using chlorhexidine scrub and draped in sterile fashion using a three quarter sheet drape. Skin preparation was allowed to dry prior to skin puncture. Anatomic landmarks were identified. Anesthesia was achieved over the vein using 1% lidocaine. Using real-time ultrasound, with sterile probe cover and sterile gel, the introducer needle was inserted into the vein under direct ultrasound visualization. Venous blood was withdrawn. The syringe was removed and a guidewire was advanced into the introducer needle. The guidewire was visualized in the appropriate vein by ultrasound. A small incision was made at the skin surface with a scalpel and the introducer needle was exchanged for a dilator over the guidewire. After appropriate dilation was obtained, the dilator was exchanged over the wire for an central venous catheter. The wire was removed and the catheter was sutured in place. A biopatch was placed at the insertion site. A sterile op-site was placed over the catheter and biopatch. The patient tolerated the procedure without any hemodynamic compromise. At time of procedure completion, all ports aspirated and flushed properly. Post-procedure chest x-ray: Shows adequate positioning of the catheter for use. Procedure was completed under the supervision and guidance of supervising physician Dr. Romy Steele M.D. Internal Medicine PGY-3 Central Line Placement Right IJ: Indication(s): shock Informed consent obtained: from patient Patient placed on monitor/pulse ox: Yes Hand Hygiene: soap & water and alcohol-based hand rub Max Sterile Barrier Techniques used: cap, mask, sterile gown, sterile gloves and sterile full body drape Central line prep: Chlorhexidine scrub Local anesthesia used: lidocaine 1% Amount of anesthesia used (mL): 10 Ultrasound used for placement: Yes Sterile Technique if Ultrasound used, including sterile gel: yes Central line lumen inserted: triple Post procedure: sutured in place, good blood return, all ports aspirated, flushed, capped and sterile dressing applied Post procedure x-ray: tip of catheter in good position and no pneumothorax seen Patient tolerated procedure: well and no complications EBL(ml): 5 Complications: none
--- NOTE | 2024-11-22 04:02 | PC.NURSE ---
Dr. Steele and Dr. Rubio at bedside for central line insertion.
--- NOTE | 2024-11-22 04:03 | PC.NURSE ---
Verbal order received from Dr. Rubio for 2mg ativan for pt comfort while central line insertion attempt is in progress.
[2024-11-22] MEDS: LORazepam 2 MG/ML VIAL IVP (04:08)
--- NOTE | 2024-11-22 04:12 | XR_ITS ---
Examination: AP chest single view Technique one AP portable supine chest single view Exam date and time: November 22, 2024 at 0419 hrs. Comparison 08/02/2023 Indications: Status post central line placement. Findings: Right internal jugular central line tip SVC satisfactory position No pneumothorax Enlarged cardiac contour with prominent vascular congestion and extensive bilateral perihilar edema and/or pneumonia Impression: Right internal jugular central line tip SVC satisfactory position Enlarged cardiac contour with prominent vascular congestion and extensive bilateral perihilar edema and/or pneumonia No pneumothorax
[2024-11-22 05:10] LABS: Lactate (Lactic Acid) 1.3 mMol/L (0.4-2.0)
[2024-11-22 05:13] LABS: Basophils # (Auto) 0.1 Thou/mm3 (0.0-0.2); Basophils % (Auto) 1 % (0-2.5); Eosinophils # (Auto) 0.1 Thou/mm3 (0.0-0.5); Eosinophils % (Auto) 1 % (0-10); Hematocrit 35.4 % (36.0-46.0); Hemoglobin 11.7 g/dL (12.0-16.0); Immature Granulocytes % (Auto) 1 % (0-0); Lymphocytes # (Auto) 0.4 Thou/mm3 (1.0-4.8); Lymphocytes % (Auto) 4 % (10-50); Mean Corpuscular HGB Conc 33.1 g/dl (31.0-37.0); Mean Corpuscular Hemoglobin 32.4 pg (25.0-35.0); Mean Corpuscular Volume 98 fL (80-100); Monocytes # (Auto) 0.2 Thou/mm3 (0.0-0.8); Monocytes % (Auto) 2 % (0-12); Neutrophils # (Auto) 7.8 Thou/mm3 (1.8-7.7); Neutrophils % (Auto) 92 % (37-80); Nucleated Red Blood Cell % 0 /100 WBC (0); Platelet Count 436 Thou/mm3 (140-440); RDW Standard Deviation 49.2 fL (36.4-46.3); Red Blood Count 3.61 Miln/mm3 (4.00-5.20); White Blood Count 8.5 Thou/mm3 (3.6-11.0)
--- NOTE | 2024-11-22 05:19 | ESHP_ITS ---
Documentation for date of: 11/22/24 [facility] History of Present Illness History of present illness: Ms. 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 The patient stated that her symptoms started approximately 1 week prior to presentation. She notes she had profuse watery diarrhea of 1 week duration. She states that she had spent a night with countless episodes of diarrhea. Due to her symptoms she consumed loperamide to help reduce the diarrhea after which she noted several diarrhea free days. She also noted associated symptoms of generalized weakness, fatigue, loss of appetite, abdominal pain during this time. Her symptoms progressively worsen until the day of presentation at which point her diarrhea returned. She denies any fever, vomiting or recent street food. Also denies any sick contacts. Of note patient recently traveled to [place] approximately 2 weeks ago. She returned from her trip on 10/30/2024. She reported to partaking in various street and restaurant food during her stay. On 11/16/2024 patient presented to her PCP who diagnosed her with pneumonia and prescribed her a 5-day course of azithromycin p.o. and prednisone 40 Mg p.o. daily x 5 days, completed on 11/20/2024. Upon review patient denies any chest pain, SOB, PND/orthopnea, palpitations, dizziness or headache. ED course: BP 87/67, pulse 105, RR 16, T97.7F, SpO2 98% on room air. Labs significant for Hb 11.3, HCT 34.9, NA 136, K5.3, BUN 54, CR 2.5, LA 2.3, Ca 6.8, Phos 6.4, LDH 352, Pro-Tello 19, TSH 5.41. Chest x-ray significant for mild RUL consolidation and bibasilar bronchiectasis. No signs of pulmonary edema or pleural effusion. In the ED patient received 4L normal saline IVF bolus, azithromycin and ceftriaxone IV x 1. Patient was admitted to telemetry for intractable diarrhea. Patient blood pressure dropped with MAP in the 50's. Patient was started on Levophed and ICU was consuted for admission. Patient was admitted to ICU for septic shock. A central line was placed for pressor administration. Review of Systems Review of Systems Systems Reviewed: All systems reviewed, normal except as documented Exam Vital Signs Temp Pulse Resp BP Pulse Ox O2 Del Method 97.7 F 71 21 H 89/68 L 96 Room Air 11/21/24 23:00 11/22/24 04:34 11/22/24 04:34 11/22/24 04:10 11/22/24 04:34 11/22/24 04:10 Narrative Exam Constitutional Alert, oriented x 3 and mild distress. Middle-aged, obese female. Decreased skin turgor HEENT Vision grossly intact. Patent nares. Trachea midline Respiratory Chest normal on inspection and clear auscultation bilaterally Cardiovascular S1 and S2 audible, RRR. No murmurs carotid bruit. JVD not assessed. Abdominal Soft, obese and generalized tenderness to palpation in all quadrants. BS + Genitourinary No bladder tenderness, no flank pain. Normal to palpation Musculoskeletal Extremities tone within normal limits. Trace LE edema Neurological CN II - XII grossly intact. Extremity motor and sensation grossly intact. Skin Warm, dry and intact. Ecchymoses on bilateral extensor surfaces of forearms Psychiatric Patient has good affect, is cooperative Results: Labs 11/24/24 05:00 11/24/24 05:21 Labs: Short CBC 11/21/24 11/22/24 11/22/24 Range/Units 18:57 02:34 05:00 WBC 4.9 4.6 8.5 D (3.6-11.0) Thou/mm3 Hgb 11.3 L 10.9 L 11.7 L (12.0-16.0) g/dL Hct 34.9 L 32.7 L 35.4 L (36.0-46.0) % Plt Count 409 320 D 436 D (140-440) Thou/mm3 BMP 11/21/24 11/21/24 11/22/24 18:57 22:58 02:34 Sodium 129 L 136 135 L Potassium 5.3 H 5.3 H 5.2 H Chloride 98 107 107 Carbon Dioxide 18.3 L 19.0 L 17.0 L BUN 59 H 54 H 48 H Creatinine 3.2 H 2.5 H D 2.2 H Glucose 161 H 128 H 125 H Calcium 7.8 L 6.8 L* 6.8 L* Cardiac Enzymes 11/21/24 Range/Units 18:57 Troponin I < 0.020 (0.0-0.045) ng/mL Liver Function 11/21/24 11/22/24 Range/Units 18:57 02:34 Total Bilirubin 0.4 < 0.2 L (0.3-1.2) mg/dL AST 45 H 44 H (0-34) U/L ALT 20 17 (10-49) U/L Alkaline Phosphatase 81 80 (46-116) U/L Albumin 3.1 L 2.6 L D (3.5-5.0) gm/dL Urine 11/21/24 Range/Units 21:37 Urine Color Lt-Yellow (Lt Yel-Yel) Urine Clarity Clear (Clear/Hazy) Urine pH 6.0 (5.0-7.0) Ur Specific [place] 1.013 (1.001-1.035) Urine Protein 1+ A (Neg - Trace) Urine Glucose (UA) Negative (Negative) Quality Measures Quality Measures sepsis Current suspected stage: septic shock (LA >4 and/or hypotension) Sepsis reassessment completed at (date): 11/22/24 Sepsis reassessment completed at (time): 08:12 Possible source: unknown Blood cultures ordered: yes Antibiotic ordered: Yes Medications Home Medications and Allergies Home Medications ?Medication ?Instructions ?Recorded ?Confirmed ?Type levothyroxine 100 mcg tablet 132 mcg PO ACBR #0 tabs 05/10/17 11/22/24 History (Synthroid) montelukast 10 mg tablet 1 tab PO QDAY ##0 05/10/17 11/22/24 History (Singulair) conj estrogen-medroxyprogesterone 1 tab PO QDAY 10/20/21 11/22/24 History 0.625 mg-5 mg tablet (Prempro) lisinopril 20 mg tablet 20 mg PO QDAY 08/04/23 11/22/24 History prednisone 10 mg tablet 10 mg PO QDAY 08/04/23 11/22/24 History albuterol sulfate 90 mcg/actuation 2 inh inhalation Q4H PRN Wheezing 08/07/23 11/22/24 History aerosol inhaler gabapentin 300 mg capsule 300 mg PO TID 11/22/24 11/22/24 History methocarbamol 750 mg tablet 750 mg PO Q8H PRN Muscle Pain 11/22/24 11/22/24 History upadacitinib 15 mg tablet,extended 15 mg PO QDAY 11/22/24 11/22/24 History release 24 hr (Rinvoq) zolpidem 12.5 mg tablet,extended 12.5 mg PO HS 11/22/24 11/22/24 History release,multiphase (Ambien CR) Allergies Allergy/AdvReac Type Severity Reaction Status Date / Time sulfamethoxazole Allergy Unknown SERUM Verified 11/21/24 16:38 SICKNESS trimethoprim Allergy Unknown SERUM Verified 11/21/24 16:38 SICKNESS Visit Medications Acetaminophen (Acetaminophen 325 Mg Tablet) 650 mg PO Q6H PRN PRN Reason: Fever >100.3 or pain Stop: 12/22/24 00:44 Hydrocodone Bitart/Acetaminophen (Hydrocodone/Apap 5/325 Tablet) 1 tab PO Q4HR PRN PRN Reason: PAIN SCALE 4-10(Mod-Sev Stop: 11/27/24 00:50 Al Hydrox/Mg Hydrox/Simethicone (Mg Hyd/Al Hyd/Sandie (Maalox Reg) Susp 30 Ml Udc) 30 ml PO Q4HR PRN PRN Reason: UPSET STOMACH/INDIGESTION Stop: 12/22/24 00:52 Albuterol/Ipratropium (Albuterol/Ipratropium (Duoneb) Rt Marichuy 3 Ml Nebu) 3 ml INH Q2HR PRN PRN Reason: SHORTNESS OF BREATH OR WHEEZE Stop: 12/22/24 00:44 Calcium Acetate (Calcium Acetate 667 Mg Tablet) 667 mg PO TIDWM ZAK Stop: 12/22/24 07:59 Fidaxomicin (Fidaxomicin 200 Mg Tablet (Non-Formulary)) 200 mg PO BID ZAK Stop: 11/29/24 01:44 Hydrocortisone Sodium Succinate (Hydrocortisone Sod Succ Inj 100 Mg Vial) 50 mg IV Q6HR ZAK Stop: 11/24/24 05:59 Norepinephrine Bitartrate (Levophed In Ns 16mg/250ml) 16 mg in 250 mls @ 4.571 mls/hr IV .Q24H PRN; Protocol PRN Reason: PER PROTOCOL Stop: 12/22/24 02:53 Last Titration: 11/22/24 04:50 Dose: 0.4 mcg/kg/min, 36.571 mls/hr Lactobacillus Rhamnosus (Lactobacillus Rhamnosus 1 Cap) 1 cap PO BID ZAK Stop: 12/25/24 08:59 Levothyroxine Sodium (Levothyroxine Sodium 125 Mcg Tablet) 125 mcg PO ACBR ZAK Stop: 12/22/24 05:59 Ondansetron HCl (Ondansetron Inj 2 Mg/Ml Inj 2 Ml) 4 mg IV Q6H PRN; Protocol PRN Reason: NAUSEA OR VOMITING Stop: 12/22/24 00:50 Discontinued Medications Fidaxomicin (Fidaxomicin 200 Mg Tablet (Non-Formulary)) 200 mg PO BID ZAK Stop: 11/29/24 01:14 Last Admin: 11/22/24 02:02 Dose: Not Given Hydrocortisone Sodium Succinate (Hydrocortisone Sod Succ Inj 100 Mg Vial) 100 mg IV X1 ONE Stop: 11/22/24 02:55 Last Admin: 11/22/24 02:58 Dose: 100 mg Sodium Chloride (Ns) 1,710 mls @ 1,710 mls/hr 30 ml/kg infuse over 60 min (1710 ml) IV .Q1H ONE Stop: 11/21/24 19:21 Last Infusion: 11/21/24 20:20 Dose: Infused Sodium Chloride (Ns) 1,000 mls @ 999 mls/hr IV .Q1H1M ONE Stop: 11/21/24 21:26 Last Infusion: 11/21/24 21:40 Dose: Infused Ceftriaxone Sodium 1,000 mg/ (Sodium Chloride) 50 mls @ 100 mls/hr IV X1 ONE Stop: 11/21/24 22:45 Last Infusion: 11/21/24 23:30 Dose: Infused Azithromycin 500 mg/ Sodium (Chloride) 250 mls @ 250 mls/hr IV QDAY@2100 ZAK Stop: 11/29/24 20:59 Azithromycin 500 mg/ Sodium (Chloride) 250 mls @ 250 mls/hr IV X1 ONE Stop: 11/21/24 23:29 Last Infusion: 11/22/24 01:05 Dose: Infused Sodium Chloride (Ns) 1,000 mls @ 999 mls/hr IV .Q1H1M ONE Stop: 11/21/24 23:19 Last Infusion: 11/21/24 23:30 Dose: Infused Lactated Ringer's (Lactated Ringers) 500 mls @ 999 mls/hr IV .Q31M ONE Stop: 11/22/24 01:23 Last Infusion: 11/22/24 01:35 Dose: Infused Lorazepam (Lorazepam 2 Mg/Ml Vial) 2 mg IVP X1 ONE Stop: 11/22/24 04:08 Last Admin: 11/22/24 04:08 Dose: 2 mg Assessment & Plan Plan Plan: Neurological AAOx3, no active Cardiology #Septic Shock Concern for septic shock with suspected sources including GI versus Pneumonia. History and PE notable for profuse watery diarrhea and severe abdominal tenderness. Alternative shock etiologies includes cardiogenic, distributive (non-septic), obstructive, hypovolemic, and neurogenic. - Levophed Gtt and Vasopressin with MAP goal >65 - Titrate pressors as tolerated Dx - CBC, CMP, Lactate - CXR, UA/UCx, BCx 2 - Telemetry, Strict I/O, Goal MAP >65 - Consider EKG, Troponin, BNP, DDimer/CTPE per clinical scenario Tx - s/p 4.5L IVF resusitation - Empiric abx: Vancomycin and Pipercillin/tazobactam #Essential hypertension Home medication lisinopril 20 Mg p.o. daily Patient currently hypotensive Plan: ? Home medication on hold for now until hypertensive off of pressor support Pulmonary #Septic Shock secondary to pneumonia vs GI source Patient met SIRS criteria with 2 suspected sources of Pneumonia as evidenced on CXR. GI source is also a possibility given diffuse tenderness to palpation. Patient received 30 cc/kg and IV antibiotics vancomycin and Zosyn in the ED. Lactic Acid: 3.2, Procalcitonin 19.01 -Patient s/p Ceftriaxone 1 g x1 and azithromycin, As patient's pressor requirements are increasing, will broaden coverage with Vancomycin and Zosyn -IV fluid resuscitation -Blood Cultures: Pending -Urinalysis and urine culture ordered -MRSA nasal swab ordered -Legionella Urine Antigen ordered Gastrointestinal Patient presented with intractable diarrhea for the past week. Recent antibiotic use and also recent travel to [place]. Patient chronically on prednisone for RA On exam she has generalized abdominal pain tender to palpation in all quadrants. DDx: Traveler's diarrhea, colitis, C. difficile, inflammatory bowel disease, microscopic colitis Lactic acid 2.3, LDH 352, WBC 4.9 KUB x-ray: Read pending CT angio C/A/P: pending In the ED patient received 4L normal saline IVF bolus, azithromycin and ceftriaxone IV x 1. Plan: ? Lactated Ringer's 500 mL IVF bolus ? Fidaxomicin 200 Mg p.o. twice daily ? Contact precautions ? Stool studies ordered including calprotectin, Giardia, ova and parasites, H. pylori, norovirus, stool culture, stool for WBCs and C. difficile. ? GI consulted , Appreciate recommendations ? Infectious disease, Appreciate recommendations. Renal/Genitourinary #Acute Kidney Injury On admission patient's CR 3.2. From chart review baseline CR between 1?1.2 Creatinine: 3.2, elevated from baseline of 1.1 Most likely prerenal in etiology in the setting of septic shock -IV fluid resuscitation -Reassess after fluid resusitation and monitor BUN/API ARCHITECT with QD CMP -For essential medications that are renally cleared, adjust dosing daily -Avoid Iodinated contrast media to prevent contrast induced nephropathy -Avoid Gadolinium-based contrast agents to prevent?nephrogenic systemic fibrosis -Avoid Nephrotoxic medications and drugs that may have a detrimental effect on glomerular perfusion #NAGMA #Hyperkalemia #Hypocalcemia # Hyperphosphatemia Patient has history of Lynn en Y Gastric bypass 20 years ago. Since then she has been hypocalcemic and low Vitamin D levels K5.3, Ca 6.8, Phos 6.4 ? Calcium acetate 667 Mg p.o. 3 times daily with meals for hypocalcemia and hyperphosphatemia. Endocrine #? Adrenal Inssufficiency Patient noted to be on custodial steroid usage. Last dose was several days prior. Blood pressure unresponsive to IVF resusitation. Labs significant for Hyponatremia, Hyperkalemia, hypocalcemia and NAGMA consistent with AI. Plan: Will administer stress dose steroids. Solu-cortef 100 mg #Hypothyroidism Patient's home medication levothyroxine 125 mcg p.o. daily Patient's last dose increase was 2 months ago Hemetology - DVT prophylaxis Infectious Disease #Septic Shock #Pneumonia #Possible GI source #Possible C. difficile Antibiotic regimen:Fidoxomycin Vancomycin and Pipercillin/Tazoactam Skin - no acute issues, no evidence of skin breakdown Patient's case was discussed with supervising attending physician Dr. Dayton Steele M.D. Internal Medicine PGY-3 Attending Provider Attestation/Addendum Patient seen and examined at beside with PGY-3 Dr Steele. I have reviewed and discussed all elements of assessment and plan as dictated above. In short: Patient initially admitted to floor for intractable diarrhea and ESA concerning for c diff vs other infectious colitis. She did not respond to several liters of IVF resuscitation and had a severely taut abdomen concerning for possible acute abdomen. BP remained soft despite aggressive fluids so decision was made to place central line and admit patient to ICU for pressor support. Still unclear as to etiology of shock as patient should have at this point responded to fluids and abx, concern for intraabdominal pathology still pending further imaging studies. Because of laboratory abnormalities, abdominal pain, GI symptoms, and refractory shock in setting of chronic prednisone use, decision was made to initiate pulse dose steroids and maintenance HC. Will broaden abx coverage and obtain CT A/P to further investigate possible alternative pathology including pneumoperitoneum and mesenteric ischemia (although patient's lactate is clearing). Prognosis is guarded at this time as pressor requirements continue to rise. Marin Burris MD
[2024-11-22] MEDS: VASOPRESSIN IN NS IVPB 20 UNIT/100 ML BAG 9 UNIT IV ×2 (05:20→14:20)
[2024-11-22] MEDS: LEVOTHYROXINE SODIUM 125 MCG TABLET PO (05:41)
[2024-11-22] MEDS: HYDROCORTISONE SOD SUCC INJ 100 MG VIAL 50 MG IV ×3 (05:41→17:49)
[2024-11-22] MEDS: PIPER/TAZO 3.375 GM 3.375 GM/50 ML BAG IV (05:44)
[2024-11-22 06:07] LABS: Alanine Aminotransferase 19 U/L (10-49); Albumin, Serum 2.9 gm/dL (3.5-5.0); Albumin/Globulin Ratio 1.6 (1.2-2.2); Alkaline Phosphatase 94 U/L (46-116); Anion Gap 13 (7-16); Aspartate Amino Transferase 36 U/L (0-34); BUN/Creatinine Ratio 26 Ratio (12-20); Bilirubin,Total 0.2 mg/dL (0.3-1.2); Blood Urea Nitrogen 51 mg/dL (9-23); Calcium 7.1 mg/dL (8.3-10.6); Cardiac Risk Estimate 1.8 RATIO (3.7-5.6); Chloride 107 mMol/L (98-107); Cholesterol 119 mg/dL (132-200); Estimated Creatinine Clearance 37.2 mL/min (>60); Globulin 1.8 gm/dL (2.3-3.5); Glucose 149 mg/dL (74-106); HDL Cholesterol 66 mg/dL (40-60); LDL Cholesterol,Calculated 24 mg/dL (0-130); Lipase 26 U/L (12-53); Magnesium 1.8 mg/dL (1.6-2.6); Osmolality,Calculated 284 (275-295); Sodium 134 mMol/L (136-145); Total Protein 4.7 gm/dL (5.7-8.2); Triglycerides 144 mg/dL (30-150); Uric Acid 7.1 mg/dL (3.1-7.8); eGFR 29 See Note
[2024-11-22 06:09] LABS: Carbon Dioxide 14.5 mMol/L (20.0-31.0)
[2024-11-22] MEDS: VANCOMYCIN/NS 1 GM IVPB 200 ML IV (06:11)
[2024-11-22] MEDS: Norepinephrine/NS 16mg/250ml 16 MG/250 ML BAG 85.941 MG IV (07:29)
[2024-11-22] MEDS: LACTOBACILLUS RHAMNOSUS 1 CAP PO (08:03)
[2024-11-22] MEDS: HYDROcodone/APAP 5/325 TABLET 1 TAB PO ×2 (08:04→19:00)
[2024-11-22] MEDS: CALCIUM ACETATE 667 MG TABLET PO ×3 (08:04→17:49)
[2024-11-22] MEDS: FIDAXOMICIN 200 MG TABLET (NON-FORMULARY) PO (08:04)
[2024-11-22 10:24] LABS: Collection Type, Urine Clean Catch
--- NOTE | 2024-11-22 10:41 | PC.CC ---
Rounding note: pt Kari Jalloh is a 54 yr old female admitted to ICU for septic shock, essential hypertension, ESA. Pt identified as possible downgrade.
[2024-11-22 10:42] LABS: Amorphous Crystals,Urine Present (Absent); Bilirubin,Urine Negative (Negative); Blood,Urine 2+ (Negative); Clarity,Urine Turbid (Clear/Hazy); Color,Urine Yellow (Lt Yel-Yel); Glucose, Urine Negative (Negative); Ketones,Urine Negative (Negative); Leukocyte Esterase,Urine Negative (Negative); Nitrite,Urine Negative (Negative); PH,Urine 5.5 (5.0-7.0); Protein,Urine 1+ (Neg - Trace); RBC,Urine 4 /hpf (0-3); Specific Gravity,Urine 1.023 (1.001-1.035); Squamous Epithelial Cell,Urine < 1 /hpf (0-5); Urobilinogen,Urine Negative mg/dL (0.0-1.0); WBC,Urine < 1 /hpf (0-5)
[2024-11-22 10:51] LABS: Influenza A Ag Negative; Influenza B Ag Negative; Respiratory Syncytial Virus Ag Negative (Negative)
[2024-11-22] MEDS: Norepinephrine/NS 16mg/250ml 16 MG/250 ML BAG 84.113 MG IV (10:56)
[2024-11-22] MEDS: VANCOMYCIN 125 MG CAPSULE PO ×2 (11:28→17:49)
[2024-11-22] MEDS: metroNIDAZOLE/NS 500 MG IVPB 500 MG/100 ML BAG 200 MG IV ×2 (11:29→22:01)
[2024-11-22] MEDS: cefTRIAXone 2 GM in SODIUM CHLORIDE 0.9% (P) 50 ML IV (11:29)
[2024-11-22] MEDS: predniSONE 5 MG TABLET 10 MG PO (11:46)
[2024-11-22 11:47] LABS: Ag, Group B Strep, Urine Negative (Negative); Ag, H Influenza B, Urine Negative (Negative); Ag, N Mening B/E Coli K1, Ur Negative (Negative); Ag, N Meningitidis ACY W135 Ur Negative (Negative); Ag, Strep Pneumonia Urine Negative (Negative)
[2024-11-22] MEDS: LIDOCAINE HCL 1% 20 ML VIAL 10 ML INFL (12:15)
[2024-11-22] MEDS: HYDROcodone/APAP 10/325 TAB PO (12:52)
[2024-11-22] MEDS: ONDANSETRON INJ 2 MG/ML INJ 2 ML 4 MG IV (12:58)
--- NOTE | 2024-11-22 14:00 | ESOP_ITS ---
Procedures Procedure Date / Time 11/22/24 1200 Procedure Narrative Procedure Narrative: Attending attestation: I have reviewed and agree with documentation as below. Successful cannulation of the right femoral artery after failed attempt on the left due to inability to pass guidewire likely secondary to significant vasoconstriction from high-dose vasopressors. Patient without significant blood loss. Patient tolerated procedure well otherwise, noted required significant doses of lidocaine for adequate pain control prior to cannulation. Arterial Line Indication(s): shock and other (Difficulty with cuff BP measurements, on pressors) Informed consent obtained: from patient Time out done, and the following verified: correct patient, side and site, procedure, patient position and implants and/or equipment Size (Gauge): 20 Technique used: other (Ultrasound-guided) Post-Procedure: line sutured into place and dry sterile dressing placed Patient tolerated procedure: well EBL(ml): 5 Complications: none Site: right and femoral Procedure comment: Procedure was performed by Dr. Roman (PGY-3), Dr. Mayer (PGY-4), and creping machine operator helper Dr. Hurd. Bilateral wrists were first assessed for radial arterial line placement, however radial arteries were difficulty to visualize on ultrasound, possibly due to the vasopressor medications that were being a dministered at time of procedure. Decision was then made to assess femoral arteries for line placement. Consent was obtained by patient prior to procedure, risks and benefits were explained, all questions answered to patient's satisfaction. Left femoral artery was visualized on ultrasound prior to establishing sterile field. Time-out was performed: patient, procedure, site, side, and equipment w ere all verified. My (Dr. Roman, PGY-3) hands were washed prior to the procedure, bouffant cap with mask and sterile gown with sterile gloves were worn during procedure. The left femoral artery was visualized with ultrasound on left inner groin region, area was prepped with chlorhexidine scrub. Sterile field was established, and a second prep with chlorhexidine scrub was completed. Ultrasound probe was placed in sterile probe cover, left femoral artery was visualized. Anesthesia was achieved using 1% lidocaine, ~20cc used. Arterial catheterization kit was used with 20 Ga size. Using needle from the kit and under ultrasound guidance, needle was introduced into femoral vein given dark color of blood and lack of pulsating flash. The needle was withdrawn, and attempts were made again to insert into left femoral artery however were unsuccessful. Needle was removed completely and flushed with saline to remove any clots. An additional attempt was made, however unsuccessful in placing line in left femoral artery. At this point in time, Dr. Mayer (PGY-4) prepared in sterile gown and gloves and attempted to place arterial line in left femoral artery with same kit and equipment as noted above. Was able to place needle into femoral artery, however guidewire was unable to be placed smoothly into femoral artery. The needle and wire were removed from this region, pressure was applied. Right femoral artery was then visualized with ultrasound on right groin. [employer] Dr. Hurd performed this part of procedure. Similar to steps above, sterile field was established, with sterile gown and gloves in use. Right groin was prepped before and after sterile field was established. Under ultrasound guidance, right femoral artery was visualized, lidocaine 1% ~20cc used, and needle from arterial catheterization kit was used to insert into right femoral artery. Flash of blood in pulsatile fashion was observed from needle opening, guidewire was introduced followed by a 20 Ga one-lumen catheter, wire was then removed. The catheter was then connected to transducer, connected to monitor and calibrated, appropriate waveforms and blood pressure recordings noted. Catheter was sutured in place with sterile sutures by Dr. Roman (PGY-3), sterile catheter dressing and sterile dermabond adhesive were used. No complications reported, estimated blood loss ~ 5ml. Patient case discussed with attending physician Dr. Vickey Roman, DO PGY-3
[2024-11-22] MEDS: Norepinephrine/NS 16mg/250ml 16 MG/250 ML BAG 62.17 MG IV (14:19)
[2024-11-22] MEDS: SODIUM CHLORIDE 0.9% 500 ML 500 ML 999 ML IV (15:06)
[2024-11-22 15:54] LABS: Basophils # (Auto) 0.1 Thou/mm3 (0.0-0.2); Basophils % (Auto) 1 % (0-2.5); Eosinophils % (Auto) 0 % (0-10); Hematocrit 32.5 % (36.0-46.0); Hemoglobin 10.8 g/dL (12.0-16.0); Immature Granulocytes % (Auto) 2 % (0-0); Lymphocytes # (Auto) 0.2 Thou/mm3 (1.0-4.8); Lymphocytes % (Auto) 1 % (10-50); Mean Corpuscular HGB Conc 33.2 g/dl (31.0-37.0); Mean Corpuscular Hemoglobin 32.6 pg (25.0-35.0); Mean Corpuscular Volume 98 fL (80-100); Monocytes # (Auto) 0.5 Thou/mm3 (0.0-0.8); Monocytes % (Auto) 4 % (0-12); Neutrophils # (Auto) 12.7 Thou/mm3 (1.8-7.7); Neutrophils % (Auto) 93 % (37-80); Nucleated Red Blood Cell # 0.07 Thou/mm3 (0.00-0.00); Nucleated Red Blood Cell % 1 /100 WBC (0); Platelet Count 297 Thou/mm3 (140-440); RDW Standard Deviation 47.6 fL (36.4-46.3); Red Blood Count 3.31 Miln/mm3 (4.00-5.20); White Blood Count 13.7 Thou/mm3 (3.6-11.0)
[2024-11-22 16:13] LABS: Albumin, Serum 2.6 gm/dL (3.5-5.0); Anion Gap 15 (7-16); BUN/Creatinine Ratio 24 Ratio (12-20); Blood Urea Nitrogen 55 mg/dL (9-23); Calcium 7.7 mg/dL (8.3-10.6); Calcium (Corrected) 8.8 mg/dL (8.5-10.1); Chloride 109 mMol/L (98-107); Creatinine (Component) 2.3 mg/dL (0.6-1.3); Estimated Creatinine Clearance 32.3 mL/min (>60); Glucose 224 mg/dL (74-106); Osmolality,Calculated 292 (275-295); Phosphorous 7.6 mg/dL (2.4-5.1); Potassium 5.2 mMol/L (3.4-5.1); Sodium 135 mMol/L (136-145); eGFR 25 See Note
[2024-11-22 16:18] LABS: D-Dimer > 3820 ng/mL (<600)
[2024-11-22 16:20] LABS: Carbon Dioxide 10.7 mMol/L (20.0-31.0)
[2024-11-22 16:25] LABS: INR 1.2 (0.9-1.3); Partial Thromboplastin Time 30.4 Seconds (22.0-36.0); Prothrombin Time 13.3 Seconds (9.0-12.2)
[2024-11-22 16:44] LABS: Fibrinogen 860 mg/dL (175-375)
--- NOTE | 2024-11-22 17:18 | ESCONSULT_ITS ---
HPI Data of Consult Requesting Physician: Marin Burris MD Primary Care Provider: Corazon Hermosillo MD Consult Narrative Reason for consult: Acute onset of diarrhea hypotension History of present illness: 54 years of female presented to the hospital with 1 week of diarrhea and was found to be tachycardic and hypotensive but alert and oriented requiring 3 L of IV fluids today that was Ringer's lactate Patient had recently visited [place] 2 weeks ago as well as as well as recently finished course of azithromycin and prednisone for cough related symptoms by her PCP On my review of the history she had 1 bad night of diarrhea when she spent the whole night on the toilet other that she is better and the diarrhea has subsided and she has gone to the bathroom today only 1 time No stool sample could be obtained for C. difficile cc:: cc: Marin Burris MD Review of Systems Review of Systems Systems Reviewed: All systems reviewed, normal except as documented Past Medical History Surgical History OTHER SURGICAL HX: Rheumatoid arthritis for 20 years Hypothyroidism History of essential hypertension Status post Lynn-en-Y gastrojejunostomy Meds Home Medications and Allergies Home Medications ?Medication ?Instructions ?Recorded ?Confirmed ?Type levothyroxine 100 mcg tablet 132 mcg PO ACBR #0 tabs 05/10/17 11/22/24 History (Synthroid) montelukast 10 mg tablet 1 tab PO QDAY ##0 05/10/17 11/22/24 History (Singulair) conj estrogen-medroxyprogesterone 1 tab PO QDAY 10/20/21 11/22/24 History 0.625 mg-5 mg tablet (Prempro) lisinopril 20 mg tablet 20 mg PO QDAY 08/04/23 11/22/24 History prednisone 10 mg tablet 10 mg PO QDAY 08/04/23 11/22/24 History albuterol sulfate 90 mcg/actuation 2 inh inhalation Q4H PRN Wheezing 08/07/23 11/22/24 History aerosol inhaler gabapentin 300 mg capsule 300 mg PO TID 11/22/24 11/22/24 History methocarbamol 750 mg tablet 750 mg PO Q8H PRN Muscle Pain 11/22/24 11/22/24 History upadacitinib 15 mg tablet,extended 15 mg PO QDAY 11/22/24 11/22/24 History release 24 hr (Rinvoq) zolpidem 12.5 mg tablet,extended 12.5 mg PO HS 11/22/24 11/22/24 History release,multiphase (Ambien CR) Allergies Allergy/AdvReac Type Severity Reaction Status Date / Time sulfamethoxazole Allergy Unknown SERUM Verified 11/21/24 16:38 SICKNESS trimethoprim Allergy Unknown SERUM Verified 11/21/24 16:38 SICKNESS Exam Vital Signs Temp Pulse Resp BP Pulse Ox O2 Del Method 96.4 F L 121 H 25 H 114/70 91 L Room Air 11/22/24 16:05 11/22/24 17:10 11/22/24 17:10 11/22/24 14:19 11/22/24 17:10 11/22/24 17:10 Constitutional Comments: Alert oriented evaluate the patient in room 257 in the ICU Routine Abdominal Exam Comments: Generalized abdominal tenderness active bowel sounds Results Labs 11/22/24 15:40 11/22/24 15:40 Labs: Short CBC 11/21/24 11/22/24 11/22/24 Range/Units 18:57 02:34 05:00 WBC 4.9 4.6 8.5 D (3.6-11.0) Thou/mm3 Hgb 11.3 L 10.9 L 11.7 L (12.0-16.0) g/dL Hct 34.9 L 32.7 L 35.4 L (36.0-46.0) % Plt Count 409 320 D 436 D (140-440) Thou/mm3 11/22/24 Range/Units 15:40 WBC 13.7 H D (3.6-11.0) Thou/mm3 Hgb 10.8 L (12.0-16.0) g/dL Hct 32.5 L (36.0-46.0) % Plt Count 297 D (140-440) Thou/mm3 BMP 11/21/24 11/21/24 11/22/24 18:57 22:58 02:34 Sodium 129 L 136 135 L Potassium 5.3 H 5.3 H 5.2 H Chloride 98 107 107 Carbon Dioxide 18.3 L 19.0 L 17.0 L BUN 59 H 54 H 48 H Creatinine 3.2 H 2.5 H D 2.2 H Glucose 161 H 128 H 125 H Calcium 7.8 L 6.8 L* 6.8 L* 11/22/24 11/22/24 05:00 15:40 Sodium 134 L 135 L Potassium 5.0 5.2 H Chloride 107 109 H Carbon Dioxide 14.5 L* 10.7 L* BUN 51 H 55 H Creatinine 2.0 H 2.3 H Glucose 149 H 224 H D Calcium 7.1 L 7.7 L Cardiac Enzymes 11/21/24 Range/Units 18:57 Troponin I < 0.020 (0.0-0.045) ng/mL Liver Function 11/21/24 11/22/24 11/22/24 Range/Units 18:57 02:34 05:00 Total Bilirubin 0.4 < 0.2 L 0.2 L (0.3-1.2) mg/dL AST 45 H 44 H 36 H (0-34) U/L ALT 20 17 19 (10-49) U/L Alkaline Phosphatase 81 80 94 (46-116) U/L Albumin 3.1 L 2.6 L D 2.9 L (3.5-5.0) gm/dL 11/22/24 Range/Units 15:40 Total Bilirubin (0.3-1.2) mg/dL AST (0-34) U/L ALT (10-49) U/L Alkaline Phosphatase (46-116) U/L Albumin 2.6 L (3.5-5.0) gm/dL Urine 11/21/24 11/22/24 Range/Units 21:37 09:10 Urine Color Lt-Yellow Yellow (Lt Yel-Yel) Urine Clarity Clear Turbid A (Clear/Hazy) Urine pH 6.0 5.5 (5.0-7.0) Ur Specific [place] 1.013 1.023 (1.001-1.035) Urine Protein 1+ A 1+ A (Neg - Trace) Urine Glucose (UA) Negative Negative (Negative) Assessment and Plan Additional Assessment & Plan Additional Plan: # Most likely infectious enterocolitis versus C. difficile enterocolitis could also be viral gastroenteritis He has a complicated history of recent travel to [place] as well as taking course of antibiotics Plan Patient is clinically improving Complete stool panel ordered If that is negative and the diarrhea continues we will consider doing a fibrotic colonoscopy with possible biopsies at the moment I am holding Will follow the patient Advance diet as tolerated Other medical problems include # Rheumatoid arthritis # Status post Lynn-en-Y # Hypothyroidism # Resolving hypotension Thank you very much for the opportunity to participate in the care of this patient
[2024-11-22 18:16] LABS: Base Excess -16 (-3-3); HCO3 9 mEq/L (20-26); O2 Saturation 97 % (91-98); PCO2 22 mmHg (32.0-48.0); PO2 102 mmHg (83-108); pH, Arterial 7.25 (7.35-7.45)
[2024-11-22 18:17] LABS: Allen Test Not Performed; Inspired Oxygen, FIO2 21 %; Puncture Site Arterial Line
[2024-11-22 18:30] LABS: Sed Rate (ESR) 48 mm/hr (0-30)
[2024-11-22] MEDS: Norepinephrine/NS 16mg/250ml 16 MG/250 ML BAG 49.371 MG IV (18:59)
[2024-11-22 19:04] LABS: C-Reactive Protein 44.1 mg/dL (0.0-0.9)
--- NOTE | 2024-11-22 19:17 | XR_ITS ---
Examination: CT abdomen and pelvis without contrast. Coronal 3-D reconstructions. Sagittal 2-D reconstructions. Date and time of exam:November 22, 20242020 hrs. Indications: Abdominal pain and diarrhea today CTDI: vol (mGy): 21.6 DLP: (mGycm): 1400 Technique: Axial images of the abdomen have been obtained, 3 mm slice thickness Intravenous contrast material has not been administered. Low dose protocols were performed. One or more of the following dose reduction techniques were used; automated exposure control, adjustment of the mA and/or KV according to patient size, use of iterative reconstruction technique. Findings: Prominent bilateral pneumonia Mild bilateral pleural disease Cirrhosis Pneumoperitoneum Spleen is not enlarged Gastric sutures No pancreatic mass No hydronephrosis renal or ureteral calculi Air droplets in the wall of the colon, for instance coronal image 45 suspicious for ischemic bowel No bowel obstruction Moderate osteopenia Impression: Significant bilateral pneumonia Cirrhosis, mild ascites Pneumoperitoneum Air droplets in the wall of the colon, suspicious for ischemic bowel, recommend surgical consultation
--- NOTE | 2024-11-22 20:48 | PD.RESPRO ---
Documentation for date of: 11/22/24 Subjective Subjective Interval history: Patient was seen and examined at the bedside in ICU. She continues to have severe diffuse abdominal tenderness. Her diarrhea has resolved completely and she have not had any bowel movements today. She continues to be on pressor support but her requirements has reduced. She continues to be tachycardic and tachypneic. Her home dose prednisone was resumed today. Creatinine up trended from 2-2.3 therefore CTA was canceled and patient was ordered for CT abdomen pelvis without contrast. Her antibiotic regimen was changed IV Vanco and Zosyn were discontinued, she was started on IV ceftriaxone, metronidazole and oral vancomycin for possible C. difficile. Pending C. difficile PCR. Coagulation panel showed PT 13.3, INR 1.2, PTT 30.4, fibrinogen 860, D-dimer more than 3820. Repeat ABG showed pH 7.25, pCO2 22, pO2 102. Chemistry showed bicarb 10.7. Exam Vital Signs Temp Pulse Resp BP Pulse Ox O2 Del Method 96.4 F L 127 H 25 H 153/77 H 80 L Room Air 11/22/24 16:05 11/22/24 18:59 11/22/24 18:25 11/22/24 18:59 11/22/24 18:20 11/22/24 18:00 Narrative Exam Gen: Well-developed and well-nourished obese female. HEENT: NCAT, PERRLA, EOMI, MMM, anicteric conjunctivae. CVS: normal S1 and S2. Regular tachycardia. No M/R/G. Resp: Decreased breath sounds B/L. No rhonchi, rales, crackles or wheezing. Abd: soft, significantly tender to minimal palpation, mildly distended. BS+ in all 4 quadrants. MSK: Good ROM in BUE & BLE. Trace edema BLE. Multiple ecchymosis dorsal surface BUE. Neuro: CN II-XII grossly intact. Strength 5/5 in BUE & BLE. Alert and oriented x3. Psych: appropriate mood and affect, appears tired. Objective Labs 11/27/24 08:54 11/27/24 08:54 Labs: Laboratory Results - last 24 hr 11/21/24 11/21/24 11/21/24 18:57 21:37 22:58 WBC RBC Hgb Hct MCV MCH MCHC RDW Std Deviation Plt Count Neut % (Auto) Lymph % (Auto) [place] % (Auto) Eos % (Auto) Baso % (Auto) Neut # (Auto) Lymph # (Auto) [place] # (Auto) Eos # (Auto) Baso # (Auto) Immature Gran # (Auto) Absolute Nucleated RBC Immature Gran % Nucleated RBC % ESR PT INR APTT Fibrinogen D-Dimer Puncture Site ABG pH ABG pCO2 ABG pO2 ABG HCO3 ABG O2 Saturation ABG Base Excess FiO2 Sodium 136 Potassium 5.3 H Chloride 107 Carbon Dioxide 19.0 L Anion Gap 10 BUN 54 H Creatinine 2.5 H D Estim Creat Clear Calc 29.7 L eGFR 22 L BUN/Creatinine Ratio 22 H Glucose 128 H Calculated Osmolality 288 Lactic Acid 2.3 H Uric Acid Calcium 6.8 L* Corrected Calcium Phosphorus 6.4 H Magnesium Total Bilirubin AST 45 H ALT Alkaline Phosphatase Lactate Dehydrogenase 352 H C-Reactive Prot, Quant Total Protein Albumin Globulin Albumin/Globulin Ratio Triglycerides Cholesterol LDL Cholesterol, Calc HDL Cholesterol Cholesterol/HDL Ratio Lipase Ur Collection Type Catheter Urine Color Lt-Yellow Urine Clarity Clear Urine pH 6.0 Ur Specific [place] 1.013 Urine Protein 1+ A Urine Glucose (UA) Negative Urine Ketones Negative Urine Blood 1+ A Urine Nitrite Negative Urine Bilirubin Negative Urine Urobilinogen (Auto) Negative Ur Leukocyte Esterase Negative Urine RBC 1 Urine WBC 0 Ur Squamous Epith Cells < 1 Amorphous Crystals Urine Bacteria Rare Ur Culture Indicated? Not Indicated Stool for White Cells Stl C. diff Tox B Gene Influenza A (Rapid) Influenza B (Rapid) H.influenzae Type B Ag U N.meningtid ACY/W135 N.meningitid B/E.col K1 RSV Rapid Urine Strep B Antigen Ur Strep pneumoniae Ag 11/22/24 11/22/24 11/22/24 02:00 02:34 05:00 WBC 4.6 8.5 D RBC 3.26 L 3.61 L Hgb 10.9 L 11.7 L Hct 32.7 L 35.4 L MCV 100 98 MCH 33.4 32.4 MCHC 33.3 33.1 RDW Std Deviation 50.0 H 49.2 H Plt Count 320 D 436 D Neut % (Auto) 87 H 92 H Lymph % (Auto) 10 4 L [place] % (Auto) 2 2 Eos % (Auto) 0 1 Baso % (Auto) 1 1 Neut # (Auto) 4.0 7.8 H Lymph # (Auto) 0.5 L 0.4 L [place] # (Auto) 0.1 0.2 Eos # (Auto) 0.0 0.1 Baso # (Auto) 0.0 0.1 Immature Gran # (Auto) 0.04 H 0.10 H Absolute Nucleated RBC 0.00 0.00 Immature Gran % 1 H 1 H Nucleated RBC % 0 0 ESR PT INR APTT Fibrinogen D-Dimer Puncture Site ABG pH ABG pCO2 ABG pO2 ABG HCO3 ABG O2 Saturation ABG Base Excess FiO2 Sodium 135 L 134 L Potassium 5.2 H 5.0 Chloride 107 107 Carbon Dioxide 17.0 L 14.5 L* Anion Gap 11 13 BUN 48 H 51 H Creatinine 2.2 H 2.0 H Estim Creat Clear Calc 33.8 L 37.2 L eGFR 26 L 29 L BUN/Creatinine Ratio 22 H 26 H Glucose 125 H 149 H Calculated Osmolality 283 284 Lactic Acid Uric Acid 7.1 Calcium 6.8 L* 7.1 L Corrected Calcium 7.9 L 8.0 L Phosphorus Magnesium 1.8 Total Bilirubin < 0.2 L 0.2 L AST 44 H 36 H ALT 17 19 Alkaline Phosphatase 80 94 Lactate Dehydrogenase C-Reactive Prot, Quant Total Protein 4.2 L 4.7 L Albumin 2.6 L D 2.9 L Globulin 1.6 L 1.8 L Albumin/Globulin Ratio 1.6 1.6 Triglycerides 144 Cholesterol 119 L LDL Cholesterol, Calc 24 HDL Cholesterol 66 H Cholesterol/HDL Ratio 1.8 L Lipase 26 Ur Collection Type Urine Color Urine Clarity Urine pH Ur Specific [place] Urine Protein Urine Glucose (UA) Urine Ketones Urine Blood Urine Nitrite Urine Bilirubin Urine Urobilinogen (Auto) Ur Leukocyte Esterase Urine RBC Urine WBC Ur Squamous Epith Cells Amorphous Crystals Urine Bacteria Ur Culture Indicated? Stool for White Cells 1+ A Stl C. diff Tox B Gene Cancelled Influenza A (Rapid) Influenza B (Rapid) H.influenzae Type B Ag U N.meningtid ACY/W135 N.meningitid B/E.col K1 RSV Rapid Urine Strep B Antigen Ur Strep pneumoniae Ag 11/22/24 11/22/24 11/22/24 05:05 09:10 15:40 WBC 13.7 H D RBC 3.31 L Hgb 10.8 L Hct 32.5 L MCV 98 MCH 32.6 MCHC 33.2 RDW Std Deviation 47.6 H Plt Count 297 D Neut % (Auto) 93 H Lymph % (Auto) 1 L [place] % (Auto) 4 Eos % (Auto) 0 Baso % (Auto) 1 Neut # (Auto) 12.7 H Lymph # (Auto) 0.2 L [place] # (Auto) 0.5 Eos # (Auto) 0.0 Baso # (Auto) 0.1 Immature Gran # (Auto) 0.20 H Absolute Nucleated RBC 0.07 H Immature Gran % 2 H Nucleated RBC % 1 H ESR 48 H PT 13.3 H INR 1.2 APTT 30.4 Fibrinogen 860 H* D-Dimer > 3820 H Puncture Site ABG pH ABG pCO2 ABG pO2 ABG HCO3 ABG O2 Saturation ABG Base Excess FiO2 Sodium 135 L Potassium 5.2 H Chloride 109 H Carbon Dioxide 10.7 L* Anion Gap 15 BUN 55 H Creatinine 2.3 H Estim Creat Clear Calc 32.3 L eGFR 25 L BUN/Creatinine Ratio 24 H Glucose 224 H D Calculated Osmolality 292 Lactic Acid 1.3 Uric Acid Calcium 7.7 L Corrected Calcium 8.8 Phosphorus 7.6 H Magnesium Total Bilirubin AST ALT Alkaline Phosphatase Lactate Dehydrogenase C-Reactive Prot, Quant 44.1 H Total Protein Albumin 2.6 L Globulin Albumin/Globulin Ratio Triglycerides Cholesterol LDL Cholesterol, Calc HDL Cholesterol Cholesterol/HDL Ratio Lipase Ur Collection Type Clean Catch Urine Color Yellow Urine Clarity Turbid A Urine pH 5.5 Ur Specific [place] 1.023 Urine Protein 1+ A Urine Glucose (UA) Negative Urine Ketones Negative Urine Blood 2+ A Urine Nitrite Negative Urine Bilirubin Negative Urine Urobilinogen (Auto) Negative Ur Leukocyte Esterase Negative Urine RBC 4 H Urine WBC < 1 Ur Squamous Epith Cells < 1 Amorphous Crystals Present A Urine Bacteria None Ur Culture Indicated? Stool for White Cells Stl C. diff Tox B Gene Influenza A (Rapid) Negative Influenza B (Rapid) Negative H.influenzae Type B Ag Negative U N.meningtid ACY/W135 Negative N.meningitid B/E.col K1 Negative RSV Rapid Negative Urine Strep B Antigen Negative Ur Strep pneumoniae Ag Negative 11/22/24 17:58 WBC RBC Hgb Hct MCV MCH MCHC RDW Std Deviation Plt Count Neut % (Auto) Lymph % (Auto) [place] % (Auto) Eos % (Auto) Baso % (Auto) Neut # (Auto) Lymph # (Auto) [place] # (Auto) Eos # (Auto) Baso # (Auto) Immature Gran # (Auto) Absolute Nucleated RBC Immature Gran % Nucleated RBC % ESR PT INR APTT Fibrinogen D-Dimer Puncture Site Arterial Line ABG pH 7.25 L ABG pCO2 22 L ABG pO2 102 ABG HCO3 9 L* ABG O2 Saturation 97 ABG Base Excess -16 L FiO2 21 Sodium Potassium Chloride Carbon Dioxide Anion Gap BUN Creatinine Estim Creat Clear Calc eGFR BUN/Creatinine Ratio Glucose Calculated Osmolality Lactic Acid Uric Acid Calcium Corrected Calcium Phosphorus Magnesium Total Bilirubin AST ALT Alkaline Phosphatase Lactate Dehydrogenase C-Reactive Prot, Quant Total Protein Albumin Globulin Albumin/Globulin Ratio Triglycerides Cholesterol LDL Cholesterol, Calc HDL Cholesterol Cholesterol/HDL Ratio Lipase Ur Collection Type Urine Color Urine Clarity Urine pH Ur Specific [place] Urine Protein Urine Glucose (UA) Urine Ketones Urine Blood Urine Nitrite Urine Bilirubin Urine Urobilinogen (Auto) Ur Leukocyte Esterase Urine RBC Urine WBC Ur Squamous Epith Cells Amorphous Crystals Urine Bacteria Ur Culture Indicated? Stool for White Cells Stl C. diff Tox B Gene Influenza A (Rapid) Influenza B (Rapid) H.influenzae Type B Ag U N.meningtid ACY/W135 N.meningitid B/E.col K1 RSV Rapid Urine Strep B Antigen Ur Strep pneumoniae Ag ABG Interpretation ABG results: 11/22/24 17:58 ABG pH 7.25 L ABG pCO2 22 L ABG pO2 102 ABG HCO3 9 L* ABG O2 Saturation 97 ABG Base Excess -16 L Quality Measures Quality Measures sepsis Current suspected stage: sepsis Possible source: unknown Blood cultures ordered: yes Antibiotic ordered: Yes Assessment & Plan Assessment Current Active Medications: Generic Name Dose Route Start Last Admin Trade Name Freq PRN Reason Stop Dose Admin Acetaminophen 650 mg 11/22/24 00:45 Acetaminophen 325 Mg Tablet PO 12/22/24 00:44 Q6H PRN Fever >100.3 or pain Protocol Hydrocodone Bitart/Acetaminophen 1 tab 11/22/24 00:51 11/22/24 19:00 Hydrocodone/Apap 5/325 Tablet PO 11/27/24 00:50 1 tab Q4HR PRN Administration PAIN SCALE 4-10(Mod-Sev Al Hydrox/Mg Hydrox/Simethicone 30 ml 11/22/24 00:53 Mg Hyd/Al Hyd/Sandie (Maalox Reg) Susp 30 Ml Udc PO 12/22/24 00:52 Q4HR PRN UPSET STOMACH/INDIGESTION Albuterol/Ipratropium 3 ml 11/22/24 00:45 Albuterol/Ipratropium (Duoneb) Rt Marichuy 3 Ml Nebu INH 12/22/24 00:44 Q2HR PRN SHORTNESS OF BREATH OR WHEEZE Calcium Acetate 667 mg 11/22/24 08:00 11/22/24 17:49 Calcium Acetate 667 Mg Tablet PO 12/22/24 07:59 667 mg TIDWM ZAK Administration Ambien Cr 12.5 Mg 0 ea 11/22/24 21:00 Tablet PO 12/22/24 20:59 HS ZAK Hydrocortisone Sodium Succinate 50 mg 11/22/24 06:00 11/22/24 17:49 Hydrocortisone Sod Succ Inj 100 Mg Vial IV 11/24/24 05:59 50 mg Q6HR ZAK Administration Norepinephrine Bitartrate 16 mg in 250 mls @ 4.571 mls/hr 11/22/24 02:54 11/22/24 18:59 Levophed In Ns 16mg/250ml IV 12/22/24 02:53 0.54 mcg/kg/min .Q24H PRN 49.371 mls/hr PER PROTOCOL Administration Protocol 0.05 MCG/KG/MIN Vasopressin/Sodium Chloride 20 unit in 100 mls @ 9 mls/hr 11/22/24 05:22 11/22/24 14:20 Vasostrict/Ns Ivpb IV 12/22/24 05:21 0.03 unit/min .Q11H7M PRN 9 mls/hr PER PROTOCOL Administration Protocol 0.03 UNIT/MIN Ceftriaxone Sodium 2 gm/ 50 mls @ 100 mls/hr 11/22/24 11:00 11/22/24 11:29 Sodium Chloride IV 11/29/24 10:59 100 mls/hr QDAY ZAK Administration Metronidazole 500 mg in 100 mls @ 200 mls/hr 11/22/24 10:56 11/22/24 11:48 Flagyl 500 Mg Iv IV 11/29/24 10:55 Not Given Q8HR ZAK Lactobacillus Rhamnosus 1 cap 11/22/24 09:00 11/22/24 08:03 Lactobacillus Rhamnosus 1 Cap PO 12/25/24 08:59 1 cap BID ZAK Administration Levothyroxine Sodium 125 mcg 11/22/24 06:00 11/22/24 05:41 Levothyroxine Sodium 125 Mcg Tablet PO 12/22/24 05:59 125 mcg ACBR ZAK Administration Ondansetron HCl 4 mg 11/22/24 00:51 11/22/24 12:58 Ondansetron Inj 2 Mg/Ml Inj 2 Ml IV 12/22/24 00:50 4 mg Q6H PRN Administration NAUSEA OR VOMITING Protocol Prednisone 10 mg 11/22/24 11:15 11/22/24 11:46 Prednisone 5 Mg Tablet PO 12/22/24 11:14 10 mg QDAY ZAK Administration Protocol Vancomycin HCl 125 mg 11/22/24 12:00 11/22/24 17:49 Vancomycin 125 Mg Capsule PO 11/29/24 11:59 125 mg QID ZAK Administration Plan Ms. 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 Neurological AAOx3, no active problem. Cardiology #Shock. Concern for septic shock with suspected sources including GI versus Pneumonia, recently treated with azithromycin for 5 days starting on 11/16/2024. History and PE notable for profuse watery diarrhea and severe abdominal tenderness. Alternative shock etiologies includes cardiogenic, distributive (non-septic), obstructive, hypovolemic. Plan: - Levophed Gtt and Vasopressin with MAP goal >65. - continue antibiotics as below. - Titrate pressors as tolerated. #Hx of hypertension. Home medication lisinopril 20 Mg p.o. daily. Patient currently hypotensive. Plan: ? Home medication on hold. Pulmonary #?Pneumonia. Patient was recently diagnosed with pneumonia, treated with azithromycin for 5 days starting on 11/16/2024. Chest x-ray on admission showed early pneumonia right upper lobe. New onset pneumonia VS radiologic findings of previously treated pneumonia. Lactic Acid: 3.2, Procalcitonin 19.01. On admission was started on vancomycin, Zosyn IV and fidaxomicin. Plan: -Current antibiotic regimen was discontinued, patient was started on ceftriaxone, metronidazole, oral vancomycin. -Cultures are pending. Gastrointestinal #Intractable diarrhea. #Abdominal pain. Patient presented with intractable watery diarrhea for the past week. No blood no mucus. Recent antibiotic use and also recent travel to [place] where she was eating local food. Patient chronically on prednisone and monoclonal antibody upadacitinib for RA. On exam she has generalized abdominal pain tender to palpation in all quadrants, soft, mildly distended. History of Lnyn-en-Y gastric bypass 20 years ago. DDx: Traveler's diarrhea, viral/bacterial colitis/enteritis, C. difficile, inflammatory bowel disease, microscopic colitis, ischemic colitis, parasitic infection, SIBO. On admission labs showed lactic acid 2.3, LDH 352, WBC 4.9. KUB did not show significant abnormalities. CT angio C/A/P was canceled due to worsening kidney function. In the ED patient received 4L normal saline IVF bolus, azithromycin and ceftriaxone IV x 1, on admission started with vancomycin, Zosyn and fidaxomicin. Plan: - Current antibiotic regimen was discontinued, patient was started on ceftriaxone, metronidazole, oral vancomycin. - Cultures are pending. - Pending CTAP. ? Contact precautions. ? Stool studies ordered including calprotectin, Giardia, ova and parasites, H. pylori, norovirus, stool culture, stool for WBCs and C. difficile. ? GI consulted, Appreciate recommendations. ? Infectious disease, Appreciate recommendations. Renal/Genitourinary #Acute Kidney Injury. On admission patient's CR 3.2. From chart review baseline CR between 1?1.2. Most likely prerenal in etiology in the setting of septic shock. Plan: -IV fluid resuscitation. 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 -For essential medications that are renally cleared, adjust dosing daily. -Avoid Iodinated contrast media to prevent contrast induced nephropathy. -Avoid Gadolinium-based contrast agents to prevent?nephrogenic systemic fibrosis. -Avoid Nephrotoxic medications and drugs that may have a detrimental effect on glomerular perfusion. #NAGMA. #Hyperkalemia #Hypernatremia. #Hypocalcemia. #Hyperphosphatemia. Patient has history of Lynn en Y Gastric bypass 20 years ago. Since then she has been hypocalcemic and low Vitamin D levels. K 5.3, Ca 6.8, Phos 6.4. Sodium bicarb on admission 18.3. ABG showed pH 7.25, pCO2 22, PaO2 102. Chemistry showed Na 135, bicarb 9, lactic acid 1.3, uric acid 7.1. Calculated osmolarity 292. Today patient's diarrhea has resolved however bicarb continues to be downtrending. Urine output has been decreasing. Plan: - IVF support. - monitor with daily labs. - sodium bicarb IV. - replete electrolytes as necessary. - Continue strict BLAISE. Endocrine #?Adrenal Inssufficiency. 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 History of rheumatoid arthritis and unknown etiology hypothyroidism. Last dose was several days prior. Blood pressure poorly responsive to IVF resusitation. Labs significant for Hyponatremia, Hyperkalemia, hypocalcemia and NAGMA consistent with AI. Plan: - continue hydrocortisone 50 mg Q6H. - resumed home dose prednisone. - Continue pressure support to maintain MAP above 65. #Hx of hypothyroidism. Unknown etiology, . Patient's home medication levothyroxine 125 mcg p.o. daily. Patient's last dose increase was 2 months ago Plan: - resume home medication. Hematology #Coagulopathy. Workup for suspected DIC showed PLT 297, PT 13.3, INR 1.2, PTT 30.4, fibrinogen 860, D-dimer > 3820, LDH 352. #Normocytic anemia. -Hemoglobin 10.8, MCV 98. Plan: -Monitor with daily CBC. Rheumatology #Hx of rheumatoid arthritis. -Patient has long history of rheumatoid arthritis, underwent multiple treatments with methotrexate and other DMARDs, currently on prednisone 10 mg and monoclonal antibody upadacitinib for prolonged time. CRP 44.1, ESR 48. Plan: -Continue home dose prednisone. -Continue hydrocortisone 50 mg every 6 hours IV. -upadacitinib on hold. Infectious Disease #?Septic Shock. #?Pneumonia. #?GI infection. #?C. difficile. WBCs on admission WNL, lactic acid 2.3, ESR and CRP are elevated but the patient has autoimmune condition. Chronic steroid and monoclonal antibody use. Plan: -Antibiotic regimen with Fidoxomycin Vancomycin and Pipercillin/Tazoactam was canceled. -Patient was started on ceftriaxone, metronidazole and oral vancomycin. -Pending CTAP without contrast. -Pending stool studies, O&P hepatitis panel, norovirus, H. pylori, Giardia and C. difficile. Skin #BUE dorsal ecchymosis. -Likely due to underlying coagulopathy, will continue to monitor. FEN: NPO. DVT prophylaxis: None. GI prophylaxis: None, ruling out C. difficile. Dispo: ICU due to septic shock. CODE STATUS: Full code. Plan of care discussed with attending Dr. Hurd. Сергей Howell MD, PGY 2. Disclaimer: This note was dictated by speech recognition. Minor errors in discharge planner may be present due to voice recognition software. Attending Provider Attestation/Addendum Patient seen and examined with above resident, Сергей Howell MD. I agree with the findings, assessment, and plan of care as documented except for any differences below. Patient with severe abdominal tenderness with chronic immunosuppression on prednisone and Rinvoq. Patient also has acute kidney failure requiring aggressive fluid resuscitation along with vasopressors for septic shock, arterial line placed for closer monitoring and allow for rapid down titration of pressors given poor measuring from sphyngomanometer. Fluids were adjusted to include sodium bicarb as the patient has significant reduction in her bicarb level with metabolic acidosis with ongoing respiratory compensation. She remains stable on nasal cannula at this point. Patient pending CT imaging in the interim has been placed on ceftriaxone, metronidazole and possible C. difficile being covered with oral vancomycin. PCR testing is pending as we await patient's stool sample to send. CT imaging returned in the evening and overnight resident did contact me. Found to have pneumoperitoneum likely from gastrointestinal perforation in the setting of immunosuppression. General surgery was contacted promptly by overnight resident and have elected to continue to monitor the patient overnight if she continues to have high pressor requirements. I was contacted overnight as the patient continued have worsening pressor requirements and impending respiratory failure. ED attending was contacted and was kind enough to assist with intubation to ensure ongoing adequate respiratory compensation for underlying shock state. Patient and her family were updated at bedside on plan of care during rounds. Her mother notably was a former surgical nurse here at our hospital, retired. Total critical care time: I have personally spent 50 minutes for review of physiologic parameters, directing plan of care throughout the day, coordination of care with other specialists, and counseling patient and her family at bedside. This is exclusive of time spent teaching housestaff or performing any separate billable procedures. Patient continues require critical care services for intra-abdominal sepsis secondary to abdominal viscus perforation complicated by acute renal failure. Patient has a significant risk for further morbidity and mortality warranting ongoing care and management only available in the intensive care unit.
[2024-11-22 22:02] LABS: Lactate (Lactic Acid) 2.2 mMol/L (0.4-2.0)
[2024-11-22 22:04] LABS: Basophils # (Auto) 0.1 Thou/mm3 (0.0-0.2); Basophils % (Auto) 1 % (0-2.5); Eosinophils % (Auto) 0 % (0-10); Hematocrit 33.8 % (36.0-46.0); Hemoglobin 11.3 g/dL (12.0-16.0); Immature Granulocytes % (Auto) 2 % (0-0); Lymphocytes # (Auto) 0.2 Thou/mm3 (1.0-4.8); Lymphocytes % (Auto) 2 % (10-50); Mean Corpuscular HGB Conc 33.4 g/dl (31.0-37.0); Mean Corpuscular Hemoglobin 32.6 pg (25.0-35.0); Mean Corpuscular Volume 97 fL (80-100); Monocytes # (Auto) 0.5 Thou/mm3 (0.0-0.8); Monocytes % (Auto) 4 % (0-12); Neutrophils # (Auto) 12.7 Thou/mm3 (1.8-7.7); Neutrophils % (Auto) 93 % (37-80); Nucleated Red Blood Cell # 0.07 Thou/mm3 (0.00-0.00); Nucleated Red Blood Cell % 1 /100 WBC (0); Platelet Count 259 Thou/mm3 (140-440); RDW Standard Deviation 47.8 fL (36.4-46.3); Red Blood Count 3.47 Miln/mm3 (4.00-5.20); White Blood Count 13.7 Thou/mm3 (3.6-11.0)
[2024-11-22] MEDS: RINGERS LACTATED 1000 ML 500 ML 999 ML IV (22:06)
[2024-11-22 22:22] LABS: Anion Gap 14 (7-16); BUN/Creatinine Ratio 25 Ratio (12-20); Blood Urea Nitrogen 56 mg/dL (9-23); Calcium 8.3 mg/dL (8.3-10.6); Chloride 111 mMol/L (98-107); Creatinine (Component) 2.2 mg/dL (0.6-1.3); Estimated Creatinine Clearance 33.8 mL/min (>60); Glucose 210 mg/dL (74-106); INR 1.2 (0.9-1.3); Osmolality,Calculated 291 (275-295); Partial Thromboplastin Time 28.5 Seconds (22.0-36.0); Potassium 5.2 mMol/L (3.4-5.1); Prothrombin Time 12.7 Seconds (9.0-12.2); Sodium 135 mMol/L (136-145); eGFR 26 See Note
[2024-11-22 22:24] LABS: Carbon Dioxide 10.3 mMol/L (20.0-31.0)
--- NOTE | 2024-11-22 22:26 | PD.SURCONS ---
HPI Consult details History of present illness: 54F with rheumatoid arthritis on chronic prednisone, obesity presenting yesterday with diarrhea and abdominal pain. Pt had recently traveled to [place] and also took a z-natalie which completed 11/20, and had watery diarrhea. Today pt underwent CT AP with findings of pneumoperitoneum and droplets adjacent to colon, she is on two pressors which are being weaned PMH: RA, hypothyroidism PSHx: Gastric bypass surgery, appendectomy, abdominoplasty Meds: on prednisone for years, no antiplt or anticoagulation Allergies: Bactrim Social hx: Nonsmoker Review of Systems Review of Systems ROS Unobtainable: All systems reviewed & no additional complaints except as documented Meds Home Medications and Allergies Home Medications ?Medication ?Instructions ?Recorded ?Confirmed ?Type levothyroxine 100 mcg tablet 132 mcg PO ACBR #0 tabs 05/10/17 11/22/24 History (Synthroid) montelukast 10 mg tablet 1 tab PO QDAY ##0 05/10/17 11/22/24 History (Singulair) conj estrogen-medroxyprogesterone 1 tab PO QDAY 10/20/21 11/22/24 History 0.625 mg-5 mg tablet (Prempro) lisinopril 20 mg tablet 20 mg PO QDAY 08/04/23 11/22/24 History prednisone 10 mg tablet 10 mg PO QDAY 08/04/23 11/22/24 History albuterol sulfate 90 mcg/actuation 2 inh inhalation Q4H PRN Wheezing 08/07/23 11/22/24 History aerosol inhaler gabapentin 300 mg capsule 300 mg PO TID 11/22/24 11/22/24 History methocarbamol 750 mg tablet 750 mg PO Q8H PRN Muscle Pain 11/22/24 11/22/24 History upadacitinib 15 mg tablet,extended 15 mg PO QDAY 11/22/24 11/22/24 History release 24 hr (Rinvoq) zolpidem 12.5 mg tablet,extended 12.5 mg PO HS 11/22/24 11/22/24 History release,multiphase (Ambien CR) Allergies Allergy/AdvReac Type Severity Reaction Status Date / Time sulfamethoxazole Allergy Unknown SERUM Verified 11/21/24 16:38 SICKNESS trimethoprim Allergy Unknown SERUM Verified 11/21/24 16:38 SICKNESS Exam Vital Signs Temp Pulse Resp BP Pulse Ox O2 Del Method 96.4 F L 118 H 24 H 153/77 H 92 L Room Air 11/22/24 16:05 11/22/24 21:20 11/22/24 21:20 11/22/24 18:59 11/22/24 21:05 11/22/24 18:00 Constitutional Constitutional: no acute distress Routine Respiratory Exam Respiratory: Present no resp distress Routine Abdominal Exam Abdominal: Present soft and tenderness (mild tenderness diffusely); Absent distended, rebound, guarding or firm Results Results: Laboratory Laboratory results: results reviewed Results: Imaging CT scan - abdomen: report reviewed and image reviewed Assessment & Plan Plan 54F with RA chronically on prednisone presenting with colitis and findings of pneumoperitoneum. Clinically pt has improved since admission with decrease in need for vasopressor support and improved abdominal pain; I discussed the option of surgery at length with her including the possibliity of a colostomy or ileostomy, either of which could be permanent. We discussed risks/benefits of watchful waiting versus surgery, and given her improved clinical status since admission ultimately pt and I agreed on watchful waiting for now, I will follow closely and readdress surgery if clinical status declines NPO, continue IV abx Will follow closely
[2024-11-22] MEDS: RINGERS LACTATED 500 ML 1,000 ML 125 ML IV (22:35)
[2024-11-22] MEDS: FLUCONAZOLE/NS 400 MG IVPB 800 MG/400 ML BAG 200 MG IV (23:03)
[2024-11-23] VITALS (174 sets, daily range): BP systolic 0–1116; BP diastolic 0–132; PULSE 79–152; RESP 19–39; TEMP 35.9–36.3; O2SAT 83–100; BMI 45.1; BMI 45.2
[2024-11-23] MEDS: HYDROcodone/APAP 5/325 TABLET 1 TAB PO (00:32)
[2024-11-23 00:57] LABS: Reflex Lactate? Y
[2024-11-23] MEDS: Norepinephrine/NS 16mg/250ml 16 MG/250 ML BAG 25.6 MG IV (01:35)
[2024-11-23] MEDS: VASOPRESSIN IN NS IVPB 20 UNIT/100 ML BAG 9 UNIT IV ×2 (01:36→14:03)
[2024-11-23 01:45] LABS: Lactic Acid, 3 HR 1.9 mMol/L (0.4-2.0)
[2024-11-23] MEDS: ALBUTEROL/IPRATROPIUM (Duoneb) RT SOL 3 ML NEBU INH (02:09)
[2024-11-23 02:24] LABS: Base Excess -15 (-3-3); HCO3 12 mEq/L (20-26); Inspired O2, VO2 Liters 10 L/min; O2 Saturation 89 % (91-98); PCO2 28 mmHg (32.0-48.0); PO2 69 mmHg (83-108); Puncture Site Arterial Line; pH, Arterial 7.22 (7.35-7.45)
[2024-11-23 02:25] LABS: Allen Test Not Performed
[2024-11-23 02:51] LABS: Hepatitis A Antibody IgM Non Reactive (Non React); Hepatitis B Core Antibody IgM Non Reactive (Non React); Hepatitis B Surface Antigen Non Reactive (Non React); Hepatitis C Antibody Non Reactive (Non React)
[2024-11-23 04:20] LABS: Base Excess -15 (-3-3); HCO3 11 mEq/L (20-26); Inspired O2, VO2 Liters 8 L/min; O2 Saturation 95 % (91-98); PCO2 24 mmHg (32.0-48.0); PO2 94 mmHg (83-108); pH, Arterial 7.26 (7.35-7.45)
[2024-11-23 04:21] LABS: Allen Test Not Performed; Puncture Site Arterial Line
[2024-11-23] MEDS: ROCURONIUM INJ 10 MG/ML VIAL 10 ML 50 MG IVP (04:41)
[2024-11-23] MEDS: ETOMIDATE INJ 2 MG/ML VIAL 10 ML 20 MG IVP (04:43)
[2024-11-23] MEDS: fentaNYL 2,500 MCG/250 ML BAG 2,500 MCG/250 ML BAG IV (04:45)
[2024-11-23] MEDS: PROPOFOL 1,000 MG IVPB 1,000 MG/100 ML VIAL 2.926 MG IV (04:45)
--- NOTE | 2024-11-23 04:45 | XR_ITS ---
Examination: AP chest single view Technique one AP portable supine chest single view Exam date and time: November 23, 2024 at 0457 hrs. Comparison November 22, 2024 Indications: Hypoxic respiratory failure postintubation today Findings: Extensive bilateral lung opacity Mild enlargement cardiac contour with prominent vascular congestion Endotracheal tube tip 3 cm above ravi. Right internal jugular central line tip right atrium No pneumothorax Impression: Worsening extensive bilateral pneumonia and/or pulmonary edema Endotracheal tube tip 3 cm above ravi Right internal jugular central line tip right atrium no pneumothorax
--- NOTE | 2024-11-23 04:59 | XR_ITS ---
Examination: Abdomen AP single view Technique: AP portable supine abdomen, single view Exam date and time: November 23, 2024 0500 hrs. Indications: Clinical diagnosis perforated bowel, abdominal pain and distention Findings: Nonobstructive bowel gas pattern. Small bowel ileus No free air beneath the left hemidiaphragm Surgical clips upper right abdomen Impression: There appears to be free air beneath the left hemidiaphragm
[2024-11-23 06:11] LABS: Basophils # (Auto) 0.1 Thou/mm3 (0.0-0.2); Basophils % (Auto) 1 % (0-2.5); Eosinophils % (Auto) 0 % (0-10); Hemoglobin 10.8 g/dL (12.0-16.0); Immature Granulocytes % (Auto) 2 % (0-0); Immature Granulocytes Auto 0.25 Thou/mm3 (0.00-0.00); Lymphocytes # (Auto) 0.3 Thou/mm3 (1.0-4.8); Lymphocytes % (Auto) 3 % (10-50); Mean Corpuscular HGB Conc 33.8 g/dl (31.0-37.0); Mean Corpuscular Hemoglobin 32.9 pg (25.0-35.0); Mean Corpuscular Volume 98 fL (80-100); Monocytes # (Auto) 0.5 Thou/mm3 (0.0-0.8); Monocytes % (Auto) 4 % (0-12); Neutrophils # (Auto) 10.8 Thou/mm3 (1.8-7.7); Neutrophils % (Auto) 90 % (37-80); Nucleated Red Blood Cell # 0.12 Thou/mm3 (0.00-0.00); Nucleated Red Blood Cell % 1 /100 WBC (0); Platelet Count 219 Thou/mm3 (140-440); RDW Standard Deviation 47.8 fL (36.4-46.3); Red Blood Count 3.28 Miln/mm3 (4.00-5.20); White Blood Count 11.9 Thou/mm3 (3.6-11.0)
[2024-11-23 06:19] LABS: INR 1.1 (0.9-1.3); Partial Thromboplastin Time 26.9 Seconds (22.0-36.0); Prothrombin Time 12.4 Seconds (9.0-12.2)
[2024-11-23 06:21] LABS: Alanine Aminotransferase 25 U/L (10-49); Albumin, Serum 2.8 gm/dL (3.5-5.0); Albumin/Globulin Ratio 1.6 (1.2-2.2); Alkaline Phosphatase 93 U/L (46-116); Anion Gap 14 (7-16); Aspartate Amino Transferase 68 U/L (0-34); BUN/Creatinine Ratio 28 Ratio (12-20); Bilirubin,Total 0.2 mg/dL (0.3-1.2); Blood Urea Nitrogen 54 mg/dL (9-23); Calcium 8.1 mg/dL (8.3-10.6); Calcium (Corrected) 9.1 mg/dL (8.5-10.1); Chloride 110 mMol/L (98-107); Creatinine (Component) 1.9 mg/dL (0.6-1.3); Estimated Creatinine Clearance 39.1 mL/min (>60); Globulin 1.8 gm/dL (2.3-3.5); Glucose 204 mg/dL (74-106); Osmolality,Calculated 292 (275-295); Potassium 4.9 mMol/L (3.4-5.1); Sodium 136 mMol/L (136-145); Total Protein 4.6 gm/dL (5.7-8.2); eGFR 31 See Note
[2024-11-23] MEDS: metroNIDAZOLE/NS 500 MG IVPB 500 MG/100 ML BAG 200 MG IV ×3 (06:21→21:20)
[2024-11-23] MEDS: HYDROCORTISONE SOD SUCC INJ 100 MG VIAL 50 MG IV ×4 (06:22→17:58)
[2024-11-23] MEDS: VANCOMYCIN/NS 1 GM IVPB 200 ML IV ×2 (06:29→13:46)
[2024-11-23 06:35] LABS: Carbon Dioxide 12.3 mMol/L (20.0-31.0)
[2024-11-23 06:39] LABS: Base Excess -16 (-3-3); HCO3 12 mEq/L (20-26); Inspired Oxygen, FIO2 100 %; O2 Saturation 100 % (91-98); PCO2 35 mmHg (32.0-48.0); PO2 355 mmHg (83-108)
[2024-11-23 06:41] LABS: Puncture Site Arterial Line; pH, Arterial 7.15 (7.35-7.45)
--- NOTE | 2024-11-23 08:21 | PD.SURPROG ---
Documentation for date of: 11/23/24 Subjective Subjective Brief History: 54F with rheumatoid arthritis on chronic prednisone, obesity presenting yesterday with diarrhea and abdominal pain. Pt had recently traveled to [place] and also took a z-natalie which completed 1/, and had watery diarrhea. Today pt underwent CT AP with findings of pneumoperitoneum and droplets adjacent to colon, she is on two pressors which are being weaned PMH: RA, hypothyroidism PSHx: Gastric bypass surgery, appendectomy, abdominoplasty Meds: on prednisone for years, no antiplt or anticoagulation Allergies: Bactrim Social hx: Nonsmoker Narrative: Overnight required intubation for hypoxia, this am developed metabolic acidosis, continuing to wean pressor support, remaining afebrile, UOP 30cc/hr Exam Vital Signs Temp Pulse Resp BP Pulse Ox O2 Del Method O2 Flow Rate 96.4 F L 109 H 28 H 105/80 100 Room Air 10 11/22/24 16:05 11/23/24 07:22 11/23/24 07:22 11/23/24 07:22 11/23/24 07:22 11/22/24 18:00 11/23/24 02:09 FiO2 100 11/23/24 07:22 Constitutional Comments: appearing comfortable on sedation Routine Respiratory Exam Respiratory: Present patient mechanically ventilated Routine Abdominal Exam Abdominal: Present soft; Absent tenderness, guarding, firm or rigid Results Results: Laboratory Laboratory results: results reviewed Assessment & Plan Plan 54F with RA chronically on prednisone who initially presented with diarrhea, with subsequent findings of pneumoperitoneum on CT. Last night pt and I spoke at length regarding surgery and because she had overall improved clinically since admission we agreed on watchful waiting; since then pt has developed hypoxia requiring intubation as well as metabolic acidosis. According to ACS NSQIP risk calculator, for surgery she has a 44% risk of serious complication, 50% risk of any complication and 32% risk of . I explained this to her mother and who expressed understanding, and given the decline that has occurred since last night we came to an agreement that surgical exploration is the best option. I enumerated risks including bleeding, infection, injury to nearby structures, hernia, need for an ostomy which may or may not be reversible, and . All questions were answered and family is agreeable to proceeding
[2024-11-23] MEDS: cefTRIAXone 2 GM in SODIUM CHLORIDE 0.9% (P) 50 ML IV (08:56)
[2024-11-23] MEDS: PROPOFOL 1,000 MG IVPB 1,000 MG/100 ML VIAL 20.48 MG IV (09:25)
[2024-11-23 09:33] LABS: Lactate (Lactic Acid) 1.6 mMol/L (0.4-2.0)
[2024-11-23] MEDS: Sodium Bicarb 8.4% 50ml Vial* 150 MEQ in DEXTROSE 5%-WATER 1,000 ML 100 MEQ IV ×2 (09:45→20:20)
--- NOTE | 2024-11-23 09:56 | PC.NURSE ---
Surgical team took pt to OR for for procedure. Handoff given to the OR Nurse present at the bedside, alongside the Anesthesiologist and Surgeon. Pt left ICU to OR @09:45.
--- NOTE | 2024-11-23 11:40 | ESOP_ITS ---
Date of Procedure 11/23/24 Pre Op Diagnosis Pneumoperitoneum Post Op Diagnosis Perforated gastrojejunostomy Procedure Repair of perforated gastrojejunostomy, Gerson patch, washout, drain placement Findings Perforation at the site of pre-existing gastrojejunostomy, approximately 2.5 cm in greatest dimension, repaired primarily with Gerson patch Procedure Description After discussion of risks and benefits with patient yesterday and with her family today, patient was brought to the operating room, SCDs were activated and general anesthesia was induced. She had already been intubated, with a central line, arterial line and Larkin in place. She was prepped and draped in usual sterile fashion and received preoperative antibiotics. After timeout a midline incision was made starting a few centimeters below the xiphoid extending to just above the umbilicus. The tissues were dissected with electrocautery until the peritoneum was reached, this was elevated with tissue clamps and incised with Metzenbaum scissors. The omentum was then retracted cephalad and there was copious seropurulent exudate which was suctioned. The small bowel was eviscerated and noted to be intact, and the colon was also noted to be intact, neither with signs of ischemia. Attention was then turned to the upper abdomen where it seemed to the drainage was coming from and adhesions were gently lysed using a combination of blunt dissection and electrocautery. At the site of patient's pre-existing gastrojejunostomy there was a perforation which was appro ximately 2.5 cm in craniocaudal dimension. At this point I asked the anesthesiologist to place an NG and confirmed its proper positioning past this point of perforation. The tissue surrounding the perforation was noted to be viable, and there were no firm lesions at the site to suggest something such as a malignancy. The perforation was closed in 2 layers, with 2-0 Vicryl and 3-0 silk sutures. The Gerson patch was then performed by freeing a tongue of omentum which was then laid over the repair and then sutured over the repair using 3-0 silk sutures. A 15 [place] LO was placed through the left lower abdomen and situated adjacent to the site of repair. The drain was sutured to the skin using a 2-0 nylon. The abdomen was irrigated until the effluent was clear. The fascia was then closed with 0 PDS sutures and the wound was irrigated with saline. Given the high likelihood of wound infection I opted to cover the wound with a wound VAC which was set to suction at 125 mmHg and demonstrated a proper seal. The bulb was attached to the LO and serosanguineous output was observed. Patient was transferred to her ICU bed and returned back to ICU in critical condition, similar to her condition upon entering OR Pathology / specimen None Estimated Blood Loss 25 Surgeon Varsha Thao MD Surgical Staff Operation Date: 11/23/24 09:45 Case Staff Anesthesiologist: Jone Byrne RNexploration engineer: Kari Larsen
--- NOTE | 2024-11-23 12:03 | PC.SS ---
Initial assessment: this is 54 year old female admitted to the ICU. Patient is not able to complete assessment and her was contacted to assist with providing information. Patient lives at home with spouse, Lebron Jalloh. Confirmed demographic information. Patient is described to require assistance with ADL's. Patient has a home cane, however rarely used, per spouse. Patient is followed by Dr. Corazon Hermosillo for primary care. Patient's spouse, Lebron was identified as the patient's alternate medical decision maker. At this time, the discharge plan remains pending. D/c plan: pending Next of kin: spouse, Lebron Jalloh
[2024-11-23 12:58] LABS: HIV (1&2) Antibody Rapid Non-Reactive
--- NOTE | 2024-11-23 13:37 | PD.ANESPROG ---
Documentation for date of: 11/23/24 ANESTHESIA NOTE: Patient had GETA for emergent ex lap earlier today. She was added on to today's schedule and this was my first time involvement. Pre-op, I saw her in ICU 257 and she was intubated on vent and unresponsive to voice and touch on sedation. Hx obtained from the at bedside. He reported pt having abdominal pain and diarrhea recently and denied any cardiopul sx. She has been hypotensive, SBP 60-70s, s/p 4 L of fluid, on Levo and Vaso drips, had significant swelling of b/l LE up to her thights and also b/l forearms and hands with b/l forearm bruising. She has h/o RA, on chronic Prednisone, and she received IV Hydrocortisone this morning. Labs showed pH 7.1, low bicarb, negative BE, elevated BUN/Cr, elevated lactic. RN reported she has been making barely 30-35 cc/hr overnight. Bicarb drip was initiated by ICU team per my request just prior to taking her to OR. She overall did well intra-op. Ex lap revealed a perforation near GE junction (please see op note for details). NGT was placed per the surgeon's guidance. Her Vaso was continued and I was able to titrate down on her Levo. I gave her 250 cc of 5% Albumin intra-op and about 150 cc of Bicarb mixed in D5 and about 200 cc of NS. UOP 50 cc intra-op. At the end, she was taken back to ICU in stable but critical condition and care transferred back to ICU team. Will defer further management to the surgeon/ICU team, recommend follow up ABG. I gave brief update to her in the waiting room. Jone Byrne MD Anesthesia Progress Note Progress Note Most recent Vital Signs: Last Vital Signs Temp 96.7 F L 11/23/24 07:01 Pulse 100 11/23/24 09:31 Resp 28 H 11/23/24 07:22 BP 82/59 L 11/23/24 09:31 Pulse Ox 100 11/23/24 09:31 O2 Del Method Room Air 11/22/24 18:00 O2 Flow Rate 10 11/23/24 02:09 FiO2 100 11/23/24 07:22
--- NOTE | 2024-11-23 13:47 | PD.IDPROG ---
Subjective Subjective Interval history: on ultrabroad rx post operatively, surgery done today for pneumoperitoneum with findings as noted. Exam Vital Signs Temp Pulse Resp BP Pulse Ox O2 Del Method O2 Flow Rate 96.7 F L 100 28 H 82/59 L 100 Room Air 10 11/23/24 07:01 11/23/24 09:31 11/23/24 07:22 11/23/24 09:31 11/23/24 09:31 11/22/24 18:00 11/23/24 02:09 FiO2 100 11/23/24 07:22 Narrative Exam somnolent on pressors and vent at 35% Objective - Internal Medicine Labs 11/23/24 05:34 11/23/24 05:34 Labs: Laboratory Results - last 24 hr 11/22/24 11/22/24 11/22/24 05:00 15:40 17:58 WBC 13.7 H D RBC 3.31 L Hgb 10.8 L Hct 32.5 L MCV 98 MCH 32.6 MCHC 33.2 RDW Std Deviation 47.6 H Plt Count 297 D Neut % (Auto) 93 H Lymph % (Auto) 1 L [place] % (Auto) 4 Eos % (Auto) 0 Baso % (Auto) 1 Neut # (Auto) 12.7 H Lymph # (Auto) 0.2 L [place] # (Auto) 0.5 Eos # (Auto) 0.0 Baso # (Auto) 0.1 Immature Gran # (Auto) 0.20 H Absolute Nucleated RBC 0.07 H Immature Gran % 2 H Nucleated RBC % 1 H ESR 48 H PT 13.3 H INR 1.2 APTT 30.4 Fibrinogen 860 H* D-Dimer > 3820 H Puncture Site Arterial Line ABG pH 7.25 L ABG pCO2 22 L ABG pO2 102 ABG HCO3 9 L* ABG O2 Saturation 97 ABG Base Excess -16 L Oxygen Liter Flow FiO2 21 Sodium 135 L Potassium 5.2 H Chloride 109 H Carbon Dioxide 10.7 L* Anion Gap 15 BUN 55 H Creatinine 2.3 H Estim Creat Clear Calc 32.3 L eGFR 25 L BUN/Creatinine Ratio 24 H Glucose 224 H D Calculated Osmolality 292 Lactic Acid Calcium 7.7 L Corrected Calcium 8.8 Phosphorus 7.6 H Magnesium Total Bilirubin AST ALT Alkaline Phosphatase C-Reactive Prot, Quant 44.1 H Total Protein Albumin 2.6 L Globulin Albumin/Globulin Ratio Random Vancomycin Hepatitis A IgM Ab Non Reactive Hep Bs Antigen Non Reactive Hep B Core IgM Ab Non Reactive Hepatitis C Antibody Non Reactive HIV 1&2 Antibody Rapid Blood Type Antibody Screen Blood Bank Wristband ID 11/22/24 11/22/24 11/23/24 21:43 22:12 01:32 WBC 13.7 H RBC 3.47 L Hgb 11.3 L Hct 33.8 L MCV 97 MCH 32.6 MCHC 33.4 RDW Std Deviation 47.8 H Plt Count 259 D Neut % (Auto) 93 H Lymph % (Auto) 2 L [place] % (Auto) 4 Eos % (Auto) 0 Baso % (Auto) 1 Neut # (Auto) 12.7 H Lymph # (Auto) 0.2 L [place] # (Auto) 0.5 Eos # (Auto) 0.0 Baso # (Auto) 0.1 Immature Gran # (Auto) 0.20 H Absolute Nucleated RBC 0.07 H Immature Gran % 2 H Nucleated RBC % 1 H ESR PT 12.7 H INR 1.2 APTT 28.5 Fibrinogen D-Dimer Puncture Site ABG pH ABG pCO2 ABG pO2 ABG HCO3 ABG O2 Saturation ABG Base Excess Oxygen Liter Flow FiO2 Sodium 135 L Potassium 5.2 H Chloride 111 H Carbon Dioxide 10.3 L* Anion Gap 14 BUN 56 H Creatinine 2.2 H Estim Creat Clear Calc 33.8 L eGFR 26 L BUN/Creatinine Ratio 25 H Glucose 210 H Calculated Osmolality 291 Lactic Acid 2.2 H 1.9 Calcium 8.3 Corrected Calcium Phosphorus Magnesium Total Bilirubin AST ALT Alkaline Phosphatase C-Reactive Prot, Quant Total Protein Albumin Globulin Albumin/Globulin Ratio Random Vancomycin Hepatitis A IgM Ab Hep Bs Antigen Hep B Core IgM Ab Hepatitis C Antibody HIV 1&2 Antibody Rapid Blood Type A Positive Antibody Screen NEGATIVE Blood Bank Wristband ID Yes 11/23/24 11/23/24 11/23/24 02:09 04:07 05:34 WBC 11.9 H RBC 3.28 L Hgb 10.8 L Hct 32.0 L MCV 98 MCH 32.9 MCHC 33.8 RDW Std Deviation 47.8 H Plt Count 219 D Neut % (Auto) 90 H Lymph % (Auto) 3 L [place] % (Auto) 4 Eos % (Auto) 0 Baso % (Auto) 1 Neut # (Auto) 10.8 H Lymph # (Auto) 0.3 L [place] # (Auto) 0.5 Eos # (Auto) 0.0 Baso # (Auto) 0.1 Immature Gran # (Auto) 0.25 H Absolute Nucleated RBC 0.12 H Immature Gran % 2 H Nucleated RBC % 1 H ESR PT 12.4 H INR 1.1 APTT 26.9 Fibrinogen D-Dimer Puncture Site Arterial Line Arterial Line ABG pH 7.22 L 7.26 L ABG pCO2 28 L 24 L ABG pO2 69 L D 94 D ABG HCO3 12 L 11 L ABG O2 Saturation 89 L 95 ABG Base Excess -15 L -15 L Oxygen Liter Flow 10 8 FiO2 Sodium 136 Potassium 4.9 Chloride 110 H Carbon Dioxide 12.3 L* Anion Gap 14 BUN 54 H Creatinine 1.9 H Estim Creat Clear Calc 39.1 L eGFR 31 L BUN/Creatinine Ratio 28 H Glucose 204 H Calculated Osmolality 292 Lactic Acid Calcium 8.1 L Corrected Calcium 9.1 Phosphorus 7.0 H Magnesium 2.0 Total Bilirubin 0.2 L AST 68 H ALT 25 Alkaline Phosphatase 93 C-Reactive Prot, Quant Total Protein 4.6 L Albumin 2.8 L Globulin 1.8 L Albumin/Globulin Ratio 1.6 Random Vancomycin 8.0 Hepatitis A IgM Ab Hep Bs Antigen Hep B Core IgM Ab Hepatitis C Antibody HIV 1&2 Antibody Rapid Non-Reactive Blood Type Antibody Screen Blood Bank Wristband ID 11/23/24 11/23/24 06:27 09:15 WBC RBC Hgb Hct MCV MCH MCHC RDW Std Deviation Plt Count Neut % (Auto) Lymph % (Auto) [place] % (Auto) Eos % (Auto) Baso % (Auto) Neut # (Auto) Lymph # (Auto) [place] # (Auto) Eos # (Auto) Baso # (Auto) Immature Gran # (Auto) Absolute Nucleated RBC Immature Gran % Nucleated RBC % ESR PT INR APTT Fibrinogen D-Dimer Puncture Site Arterial Line ABG pH 7.15 L* D ABG pCO2 35 D ABG pO2 355 H D ABG HCO3 12 L ABG O2 Saturation 100 H ABG Base Excess -16 L Oxygen Liter Flow FiO2 100 Sodium Potassium Chloride Carbon Dioxide Anion Gap BUN Creatinine Estim Creat Clear Calc eGFR BUN/Creatinine Ratio Glucose Calculated Osmolality Lactic Acid 1.6 Calcium Corrected Calcium Phosphorus Magnesium Total Bilirubin AST ALT Alkaline Phosphatase C-Reactive Prot, Quant Total Protein Albumin Globulin Albumin/Globulin Ratio Random Vancomycin Hepatitis A IgM Ab Hep Bs Antigen Hep B Core IgM Ab Hepatitis C Antibody HIV 1&2 Antibody Rapid Blood Type Antibody Screen Blood Bank Wristband ID ABG Interpretation ABG results: 11/22/24 11/23/24 11/23/24 17:58 02:09 04:07 ABG pH 7.25 L 7.22 L 7.26 L ABG pCO2 22 L 28 L 24 L ABG pO2 102 69 L D 94 D ABG HCO3 9 L* 12 L 11 L ABG O2 Saturation 97 89 L 95 ABG Base Excess -16 L -15 L -15 L 11/23/24 06:27 ABG pH 7.15 L* D ABG pCO2 35 D ABG pO2 355 H D ABG HCO3 12 L ABG O2 Saturation 100 H ABG Base Excess -16 L Assessment & Plan A&P Narrative abx are empirical. 5 d of rx ok post operatively (stop it trial) presumptive peritonitis will f/u on sat Time Spent With Patient Time: Total time spent is greater than 50% in coordination of care (as documented) at patient's floor/unit and/or counseling patient:
--- NOTE | 2024-11-23 15:17 | PC.SS ---
SS update: surgery done today for pneumoperitoneum.
[2024-11-23] MEDS: SODIUM CHLORIDE 0.9% 500 ML 500 ML 999 ML IV (15:40)
--- NOTE | 2024-11-23 16:18 | PC.DIETICIAN ---
Nutrition prescription If EN is indicated, consider: Vital 1.2 at 20 ml/hr via OG tube by pump. Advance 10 ml every 8 hrs to goal rate of 70 ml/hr x 22 hrs. If no IV fluids, water flushes of 25 ml/hr (or per MD). -Hold TF for one hour before and after levothyroxine administration-
[2024-11-23] MEDS: Norepinephrine/NS 16mg/250ml 16 MG/250 ML BAG 9.143 MG IV (16:32)
--- NOTE | 2024-11-23 16:45 | PD.RESPRO ---
Documentation for date of: 11/23/24 Subjective Subjective Interval history: Patient was seen and examined at bedside in ICU. Overnight CTAP showed free air at the abdomen and suspicion for ischemic colitis. General surgery was consulted. In the morning her metabolic acidosis has worsened, she was started on bicarbonate drip. Today morning patient was taken to the OR and underwent repair of perforated gastrojejunostomy, Gerson patch, washout, drain placement without complications. She was taken back to ICU for continuation of care. Your urine output remains stable, sodium bicarb and creatinine has improved. Her hydrocortisone was replaced by methylprednisolone. Exam Vital Signs Temp Pulse Resp BP Pulse Ox O2 Del Method O2 Flow Rate 97.0 F 92 28 H 104/65 99 Room Air 10 11/23/24 16:01 11/23/24 16:32 11/23/24 07:22 11/23/24 16:32 11/23/24 16:16 11/22/24 18:00 11/23/24 02:09 FiO2 40 11/23/24 14:41 Narrative Exam Gen: Well-developed and well-nourished obese female. HEENT: NCAT, PERRLA, EOMI, MMM, anicteric conjunctivae. Intubated and mechanically ventilated. CVS: normal S1 and S2. Regular tachycardia. No M/R/G. Resp: Decreased breath sounds B/L. No rhonchi, rales, crackles or wheezing. Abd: soft, mildly distended, s/p laparoscopy with midline abdominal scar, appears clean. Drain is in place. BS+ in all 4 quadrants. MSK: Nonpitting edema BLE. Multiple ecchymosis dorsal surface BUE. Neuro: Patient is sedated. Objective Labs 11/24/24 05:00 11/23/24 05:34 Labs: Laboratory Results - last 24 hr 11/22/24 11/22/24 11/22/24 05:00 15:40 17:58 WBC RBC Hgb Hct MCV MCH MCHC RDW Std Deviation Plt Count Neut % (Auto) Lymph % (Auto) [place] % (Auto) Eos % (Auto) Baso % (Auto) Neut # (Auto) Lymph # (Auto) [place] # (Auto) Eos # (Auto) Baso # (Auto) Immature Gran # (Auto) Absolute Nucleated RBC Immature Gran % Nucleated RBC % ESR 48 H PT 13.3 H INR 1.2 APTT 30.4 Fibrinogen 860 H* Puncture Site Arterial Line ABG pH 7.25 L ABG pCO2 22 L ABG pO2 102 ABG HCO3 9 L* ABG O2 Saturation 97 ABG Base Excess -16 L Oxygen Liter Flow FiO2 21 Sodium Potassium Chloride Carbon Dioxide Anion Gap BUN Creatinine Estim Creat Clear Calc eGFR BUN/Creatinine Ratio Glucose Calculated Osmolality Lactic Acid Calcium Corrected Calcium Phosphorus Magnesium Total Bilirubin AST ALT Alkaline Phosphatase C-Reactive Prot, Quant 44.1 H Total Protein Albumin Globulin Albumin/Globulin Ratio Random Vancomycin Hepatitis A IgM Ab Non Reactive Hep Bs Antigen Non Reactive Hep B Core IgM Ab Non Reactive Hepatitis C Antibody Non Reactive HIV 1&2 Antibody Rapid Blood Type Antibody Screen Blood Bank Wristband ID 11/22/24 11/22/24 11/23/24 21:43 22:12 01:32 WBC 13.7 H RBC 3.47 L Hgb 11.3 L Hct 33.8 L MCV 97 MCH 32.6 MCHC 33.4 RDW Std Deviation 47.8 H Plt Count 259 D Neut % (Auto) 93 H Lymph % (Auto) 2 L [place] % (Auto) 4 Eos % (Auto) 0 Baso % (Auto) 1 Neut # (Auto) 12.7 H Lymph # (Auto) 0.2 L [place] # (Auto) 0.5 Eos # (Auto) 0.0 Baso # (Auto) 0.1 Immature Gran # (Auto) 0.20 H Absolute Nucleated RBC 0.07 H Immature Gran % 2 H Nucleated RBC % 1 H ESR PT 12.7 H INR 1.2 APTT 28.5 Fibrinogen Puncture Site ABG pH ABG pCO2 ABG pO2 ABG HCO3 ABG O2 Saturation ABG Base Excess Oxygen Liter Flow FiO2 Sodium 135 L Potassium 5.2 H Chloride 111 H Carbon Dioxide 10.3 L* Anion Gap 14 BUN 56 H Creatinine 2.2 H Estim Creat Clear Calc 33.8 L eGFR 26 L BUN/Creatinine Ratio 25 H Glucose 210 H Calculated Osmolality 291 Lactic Acid 2.2 H 1.9 Calcium 8.3 Corrected Calcium Phosphorus Magnesium Total Bilirubin AST ALT Alkaline Phosphatase C-Reactive Prot, Quant Total Protein Albumin Globulin Albumin/Globulin Ratio Random Vancomycin Hepatitis A IgM Ab Hep Bs Antigen Hep B Core IgM Ab Hepatitis C Antibody HIV 1&2 Antibody Rapid Blood Type A Positive Antibody Screen NEGATIVE Blood Bank Wristband ID Yes 11/23/24 11/23/24 11/23/24 02:09 04:07 05:34 WBC 11.9 H RBC 3.28 L Hgb 10.8 L Hct 32.0 L MCV 98 MCH 32.9 MCHC 33.8 RDW Std Deviation 47.8 H Plt Count 219 D Neut % (Auto) 90 H Lymph % (Auto) 3 L [place] % (Auto) 4 Eos % (Auto) 0 Baso % (Auto) 1 Neut # (Auto) 10.8 H Lymph # (Auto) 0.3 L [place] # (Auto) 0.5 Eos # (Auto) 0.0 Baso # (Auto) 0.1 Immature Gran # (Auto) 0.25 H Absolute Nucleated RBC 0.12 H Immature Gran % 2 H Nucleated RBC % 1 H ESR PT 12.4 H INR 1.1 APTT 26.9 Fibrinogen Puncture Site Arterial Line Arterial Line ABG pH 7.22 L 7.26 L ABG pCO2 28 L 24 L ABG pO2 69 L D 94 D ABG HCO3 12 L 11 L ABG O2 Saturation 89 L 95 ABG Base Excess -15 L -15 L Oxygen Liter Flow 10 8 FiO2 Sodium 136 Potassium 4.9 Chloride 110 H Carbon Dioxide 12.3 L* Anion Gap 14 BUN 54 H Creatinine 1.9 H Estim Creat Clear Calc 39.1 L eGFR 31 L BUN/Creatinine Ratio 28 H Glucose 204 H Calculated Osmolality 292 Lactic Acid Calcium 8.1 L Corrected Calcium 9.1 Phosphorus 7.0 H Magnesium 2.0 Total Bilirubin 0.2 L AST 68 H ALT 25 Alkaline Phosphatase 93 C-Reactive Prot, Quant Total Protein 4.6 L Albumin 2.8 L Globulin 1.8 L Albumin/Globulin Ratio 1.6 Random Vancomycin 8.0 Hepatitis A IgM Ab Hep Bs Antigen Hep B Core IgM Ab Hepatitis C Antibody HIV 1&2 Antibody Rapid Non-Reactive Blood Type Antibody Screen Blood Bank Wristband ID 11/23/24 11/23/24 06:27 09:15 WBC RBC Hgb Hct MCV MCH MCHC RDW Std Deviation Plt Count Neut % (Auto) Lymph % (Auto) [place] % (Auto) Eos % (Auto) Baso % (Auto) Neut # (Auto) Lymph # (Auto) [place] # (Auto) Eos # (Auto) Baso # (Auto) Immature Gran # (Auto) Absolute Nucleated RBC Immature Gran % Nucleated RBC % ESR PT INR APTT Fibrinogen Puncture Site Arterial Line ABG pH 7.15 L* D ABG pCO2 35 D ABG pO2 355 H D ABG HCO3 12 L ABG O2 Saturation 100 H ABG Base Excess -16 L Oxygen Liter Flow FiO2 100 Sodium Potassium Chloride Carbon Dioxide Anion Gap BUN Creatinine Estim Creat Clear Calc eGFR BUN/Creatinine Ratio Glucose Calculated Osmolality Lactic Acid 1.6 Calcium Corrected Calcium Phosphorus Magnesium Total Bilirubin AST ALT Alkaline Phosphatase C-Reactive Prot, Quant Total Protein Albumin Globulin Albumin/Globulin Ratio Random Vancomycin Hepatitis A IgM Ab Hep Bs Antigen Hep B Core IgM Ab Hepatitis C Antibody HIV 1&2 Antibody Rapid Blood Type Antibody Screen Blood Bank Wristband ID ABG Interpretation ABG results: 11/22/24 11/23/24 11/23/24 17:58 02:09 04:07 ABG pH 7.25 L 7.22 L 7.26 L ABG pCO2 22 L 28 L 24 L ABG pO2 102 69 L D 94 D ABG HCO3 9 L* 12 L 11 L ABG O2 Saturation 97 89 L 95 ABG Base Excess -16 L -15 L -15 L 11/23/24 06:27 ABG pH 7.15 L* D ABG pCO2 35 D ABG pO2 355 H D ABG HCO3 12 L ABG O2 Saturation 100 H ABG Base Excess -16 L Quality Measures Quality Measures sepsis Current suspected stage: sepsis Possible source: unknown Blood cultures ordered: yes Antibiotic ordered: Yes Assessment & Plan Assessment Current Active Medications: Generic Name Dose Route Start Last Admin Trade Name Freq PRN Reason Stop Dose Admin Acetaminophen 650 mg 11/22/24 00:45 Acetaminophen 325 Mg Tablet PO 12/22/24 00:44 Q6H PRN Fever >100.3 or pain Protocol Hydrocodone Bitart/Acetaminophen 1 tab 11/22/24 00:51 11/23/24 00:32 Hydrocodone/Apap 5/325 Tablet PO 11/27/24 00:50 1 tab Q4HR PRN Administration PAIN SCALE 4-10(Mod-Sev Al Hydrox/Mg Hydrox/Simethicone 30 ml 11/22/24 00:53 Mg Hyd/Al Hyd/Sandie (Maalox Reg) Susp 30 Ml Udc PO 12/22/24 00:52 Q4HR PRN UPSET STOMACH/INDIGESTION Albuterol/Ipratropium 3 ml 11/22/24 00:45 11/23/24 02:09 Albuterol/Ipratropium (Duoneb) Rt Mar[place]uy 3 Ml Nebu INH 12/22/24 00:44 3 ml Q2HR PRN Administration SHORTNESS OF BREATH OR WHEEZE Ambien Cr 12.5 Mg 0 ea 11/22/24 21:00 11/22/24 21:59 Tablet PO 12/22/24 20:59 Not Given HS ZAK Hydrocortisone Sodium Succinate 50 mg 11/22/24 06:00 11/23/24 13:46 Hydrocortisone Sod Succ Inj 100 Mg Vial IV 11/24/24 05:59 50 mg Q6HR ZAK Administration Norepinephrine Bitartrate 16 mg in 250 mls @ 4.571 mls/hr 11/22/24 02:54 11/23/24 16:32 Levophed In Ns 16mg/250ml IV 12/22/24 02:53 0.1 mcg/kg/min .Q24H PRN 9.143 mls/hr PER PROTOCOL Administration Protocol 0.05 MCG/KG/MIN Vasopressin/Sodium Chloride 20 unit in 100 mls @ 9 mls/hr 11/22/24 05:22 11/23/24 14:03 Vasostrict/Ns Ivpb IV 12/22/24 05:21 0.03 unit/min .Q11H7M PRN 9 mls/hr PER PROTOCOL Administration Protocol 0.03 UNIT/MIN Ceftriaxone Sodium 2 gm/ 50 mls @ 100 mls/hr 11/22/24 11:00 11/23/24 08:56 Sodium Chloride IV 11/29/24 10:59 100 mls/hr QDAY ZAK Administration Metronidazole 500 mg in 100 mls @ 200 mls/hr 11/22/24 10:56 11/23/24 13:46 Flagyl 500 Mg Iv IV 11/29/24 10:55 200 mls/hr Q8HR ZAK Administration Micafungin Sodium 100 mg/ 100 mls @ 100 mls/hr 11/23/24 21:00 Sodium Chloride IV 12/23/24 20:59 DAILY@2100 ZAK Propofol 1,000 mg in 100 mls @ 2.926 mls/hr 11/23/24 04:49 11/23/24 16:00 Diprivan Ivpb IV 12/23/24 04:48 25 mcg/kg/min .Q24H PRN 14.628 mls/hr PER PROTOCOL Titration Protocol 5 MCG/KG/MIN Fentanyl Citrate 2,500 mcg in 250 mls @ 2.5 mls/hr 11/23/24 04:50 11/23/24 16:00 Sublimaze Inj 2,500 Mcg/250 Ml Bag IV 11/28/24 04:49 150 mcg/hr .Q24H PRN 15 mls/hr PER PROTOCOL Titration Protocol 25 MCG/HR Sodium Bicarbonate 150 meq/ 1,150 mls @ 100 mls/hr 11/23/24 09:08 11/23/24 09:45 Dextrose IV 12/23/24 09:07 100 mls/hr .[id number] ZAK Administration Lactobacillus Rhamnosus 1 cap 11/22/24 09:00 11/23/24 09:51 Lactobacillus Rhamnosus 1 Cap PO 12/25/24 08:59 Not Given BID ZAK Levothyroxine Sodium 125 mcg 11/22/24 06:00 11/23/24 09:51 Levothyroxine Sodium 125 Mcg Tablet PO 12/22/24 05:59 Not Given ACBR ZAK Ondansetron HCl 4 mg 11/22/24 00:51 11/22/24 12:58 Ondansetron Inj 2 Mg/Ml Inj 2 Ml IV 12/22/24 00:50 4 mg Q6H PRN Administration NAUSEA OR VOMITING Protocol Pantoprazole Sodium 40 mg 11/24/24 09:00 Pantoprazole Inj 40 Mg Vial IV 12/24/24 08:59 QDAY [facility] Pharmacy Consult 1 each 11/23/24 05:25 Vancomycin Pharmacy To Dose 1 Each Each IV 12/23/24 05:24 QDAY PRN PROTOCOL Prednisone 5 mg 11/24/24 09:00 Prednisone 5 Mg Tablet PO 12/24/24 08:59 QDAY [facility] Protocol Plan Ms. 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 Neurological #Sedation. Patient is on fentanyl and propofol drips. Cardiology #Shock. Concern for septic shock with suspected sources likely GI vs Pneumonia recently treated with azithromycin for 5 days starting on 11/16/2024. History and PE notable for profuse watery diarrhea and severe abdominal tenderness. Alternative shock etiologies includes cardiogenic, distributive (non-septic), obstructive, hypovolemic. Plan: - Levophed Gtt and Vasopressin with MAP goal >65. - continue antibiotics as below. - Titrate pressors as tolerated. #Hx of hypertension. Home medication lisinopril 20 Mg p.o. daily. Patient currently hypotensive. Plan: ? Home medication on hold. Pulmonary #?Pneumonia. Patient was recently diagnosed with pneumonia, treated with azithromycin for 5 days starting on 11/16/2024. Chest x-ray on admission showed early pneumonia right upper lobe. New onset pneumonia VS radiologic findings of previously treated pneumonia. Lactic Acid: 3.2, Procalcitonin 19.01. On admission was started on vancomycin, Zosyn IV and fidaxomicin. Plan: -continue on ceftriaxone, metronidazole, oral vancomycin. -Blood cultures are negative preliminary. Gastrointestinal #Perforated gastrojejunostomy s/p repair, Gerson patch, washout, drain placement. Patient presented with intractable watery diarrhea for the past week. No blood no mucus. Recent antibiotic use and also recent travel to [place] where she was eating local food. Patient chronically on prednisone and monoclonal antibody upadacitinib for RA. On exam she has generalized abdominal pain tender to palpation in all quadrants, soft, mildly distended. History of Lynn-en-Y gastric bypass 20 years ago. CTAP showed pneumoperitoneum, air droplets in the wall of the colon, suspicious for ischemic bowel. General surgery was consulted, on 11/23/24 patient underwent repair of perforated gastrojejunostomy, Gerson patch, washout, drain placement without complications. On admission labs showed lactic acid 2.3, LDH 352, WBC 4.9. KUB did not show significant abnormalities. CT angio C/A/P was canceled due to worsening kidney function. In the ED patient received 4L normal saline IVF bolus, azithromycin and ceftriaxone IV x 1, on admission started with vancomycin, Zosyn and fidaxomicin. Plan: - continue on ceftriaxone, metronidazole, IV vancomycin. - started on micafungin. - Cultures are pending. ? Contact precautions. ? Stool studies ordered including calprotectin, Giardia, ova and parasites, H. pylori, norovirus, stool culture, stool for WBCs and C. difficile. ? GI consulted, Appreciate recommendations. ? Infectious disease, Appreciate recommendations. Renal/Genitourinary #Acute Kidney Injury. On admission patient's CR 3.2. From chart review baseline CR between 1?1.2. Most likely prerenal in etiology in the setting of septic shock. Plan: -IV fluid resuscitation. 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 -For essential medications that are renally cleared, adjust dosing daily. -Avoid Iodinated contrast media to prevent contrast induced nephropathy. -Avoid Gadolinium-based contrast agents to prevent?nephrogenic systemic fibrosis. -Avoid Nephrotoxic medications and drugs that may have a detrimental effect on glomerular perfusion. #NAGMA. #Hyperkalemia #Hypernatremia. #Hypocalcemia. #Hyperphosphatemia. Patient has history of Lynn en Y Gastric bypass 20 years ago. Since then she has been hypocalcemic and low Vitamin D levels. K 5.3, Ca 6.8, Phos 6.4. Sodium bicarb on admission 18.3. ABG showed pH 7.25, pCO2 22, PaO2 102. Chemistry showed Na 135, bicarb 9, lactic acid 1.3, uric acid 7.1. Calculated osmolarity 292. Today patient's diarrhea has resolved however bicarb continues to be downtrending. Urine output has been decreasing, stable after surgery. Plan: - IVF support. - monitor with daily labs. - sodium bicarb IV. - replete electrolytes as necessary. - Continue strict BLAISE. Endocrine #?Adrenal Inssufficiency. 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 History of rheumatoid arthritis and unknown etiology hypothyroidism. Last dose was several days prior. Blood pressure poorly responsive to IVF resusitation. Labs significant for Hyponatremia, Hyperkalemia, hypocalcemia and NAGMA consistent with AI. Plan: - discontinued hydrocortisone 50 mg Q6H. - discontinued home dose prednisone. - Continue pressure support to maintain MAP above 65. #Hx of hypothyroidism. Unknown etiology, . Patient's home medication levothyroxine 125 mcg p.o. daily. Patient's last dose increase was 2 months ago Plan: - resume home medication. Hematology #Coagulopathy. Workup for suspected DIC showed PLT 297, PT 13.3, INR 1.2, PTT 30.4, fibrinogen 860, D-dimer > 3820, LDH 352. #Normocytic anemia. -Hemoglobin 10.8, MCV 98. Plan: -Monitor with daily CBC. Rheumatology #Hx of rheumatoid arthritis. -Patient has long history of rheumatoid arthritis, underwent multiple treatments with methotrexate and other DMARDs, currently on prednisone 10 mg and monoclonal antibody upadacitinib for prolonged time. CRP 44.1, ESR 48. Plan: -Continue home dose prednisone. -Continue hydrocortisone 50 mg every 6 hours IV. -upadacitinib on hold. Infectious Disease #Perforated gastrojejunostomy s/p repair. WBCs on admission WNL, lactic acid 2.3, ESR and CRP are elevated but the patient has autoimmune condition. Chronic steroid and monoclonal antibody use. Plan: -continue on ceftriaxone, metronidazole and IV vancomycin. -started on micafungin. -Pending stool studies, O&P hepatitis panel, norovirus, H. pylori, Giardia and C. difficile. Skin #BUE dorsal ecchymosis. -Likely due to underlying coagulopathy, will continue to monitor. FEN: NPO. DVT prophylaxis: None. GI prophylaxis: None, ruling out C. difficile. Dispo: ICU due to septic shock. CODE STATUS: Full code. Plan of care discussed with attending Dr. Hurd. Сергей Howell MD, PGY 2. Disclaimer: This note was dictated by speech recognition. Minor errors in preparation supervisor freezing may be present due to voice recognition software. Attending Provider Attestation/Addendum Patient seen and examined with above resident, Сергей Howell MD. I agree with the findings, assessment, and plan of care as documented except for any differences below. Patient taken to the OR today with abdominal viscus perforation and found to have upper GI perforation secondary to gastric ulceration. Patient will be maintained on twice daily dosing of Protonix. Remains on broad-spectrum antibiotics including antifungal coverage given upper GI lesion. Patient will get total bowel rest for 1 week. Rapid improvement in gas exchange and metabolic acidosis with further down titration of pressors throughout the day. Monitor urine output closely maintain net even to slightly net positive in the next 24 hours. Will aim at SAT/SBT tomorrow morning for potential extubation if she continues to show progress in the right direction. Patient's family was updated by myself and surgical team multiple times throughout the day and reassured on her continued improvement. I will minimize dose of prednisone to help with wound healing and if able to wean off pressors no start to taper stress dose hydrocortisone rapidly. Patient had improvement in her renal function with a good amount of urine output however we will continue to watch this as the patient's abdomen is closed and may be a marker of abdominal compartment syndrome if swelling continues to be initiated. Typically large volume loss from prolonged time in the operating room and open abdomen has been aborted after closure with wound VAC in place for monitoring. Total critical care time: I personally spent 50 minutes for review of physiologic parameters, directing plan of care throughout the day, coordination of care with other specialties, and counseling patient's family at bedside. This is exclusive of time spent teaching housestaff or performing any separate billable procedures. Patient continues to require critical care services for septic shock secondary to upper GI viscus perforation likely secondary to peptic ulcer disease from chronic immunosuppression with steroids. Patient remains at high risk for further morbidity and mortality warranting ongoing care and management only available in the intensive care unit.
--- NOTE | 2024-11-23 16:46 | ESCONSULT_ITS ---
RE: ANEUDY AUGUSTIN : 1970 DATE OF CONSULTATION: 11/23/2024 REFERRING PHYSICIAN: Dr. Burris. REASON FOR CONSULTATION: Peritonitis. HISTORY OF PRESENT ILLNESS: The patient is a 54-year-old with complicated past history based on her medication. She has hypothyroidism and hypertension. She is on some steroids as well as other medications for reasons. She is not a good historian at the moment. She is intubated on ventilator. The history is obtained from review of the record and review of the labs. She was just admitted on 11/22/2024, early in the morning. She has rheumatoid arthritis, hypothyroidism, hypertension, history of Lnyn-en-Y gastric bypass many years ago and came in with a history of intractable diarrhea of 1 week's duration. She underwent surgery today, at which time a perforated gastric ulcer was found. She is on empiric treatment for that reason and on the ventilator at the moment. There is no prior infectious disease evaluation that I could uncover. She was seen by a surgeon about a year ago in 07/2023, about a year and half and I am not sure where she goes for her rheumatoid arthritis treatment. Surgical history includes prior cholecystectomy, gastric bypass surgery, and appendectomy. Medical problems include hypertension, chronic kidney disease, and rheumatoid arthritis. She is on, as mentioned, empiric antibiotics perioperatively. Hopefully, renal function will not deteriorate. She is known to have some chronic kidney disease and so this may affect her metabolic situation a bit since levels are up a little bit from admission at a low of 10.3 up to 12.3 preoperatively. Her creatinine level is elevated, but is down from 2.2 to 1.9. It has been elevated for quite a while. Hepatitis test and HIV testing are negative. Her exam is benign. The patient is intubated on ventilator and unable to interact. She has a wound VAC on her abdomen and is not draining very much. ALLERGIES ARE LISTED TO SULFA CAUSING SERUM SICKNESS, WE WILL AVOID THAT AGENT. A: peritonitis and perforation P: empiric abx. await stains and cultures I will look forward to seeing her again on Saturday. DT: 13:53:54 TT: 16:08:00 Ref: [id number] - TID: [id number] MTDD
[2024-11-23] MEDS: PROPOFOL 1,000 MG IVPB 1,000 MG/100 ML VIAL 14.628 MG IV ×2 (17:45→21:22)
--- NOTE | 2024-11-23 19:34 | PD.IMPROG ---
Documentation for date of: 11/23/24 Subjective Subjective Interval history: Patient status post perforation at the gastrojejunostomy site from a previous bariatric procedure requiring Gerson's patch Doing better postoperatively Exam Vital Signs Temp Pulse Resp BP Pulse Ox O2 Del Method O2 Flow Rate 97.0 F 86 25 H 108/65 98 Room Air 10 11/23/24 16:01 11/23/24 19:16 11/23/24 18:31 11/23/24 18:31 11/23/24 19:16 11/22/24 18:00 11/23/24 02:09 FiO2 30 11/23/24 18:31 Routine Respiratory Exam Comments: Mechanically ventilated Routine Abdominal Exam Comments: Wound VAC in place as well as LO drain Objective Labs 11/23/24 05:34 11/23/24 05:34 Labs: Laboratory Results - last 24 hr 11/22/24 11/22/24 11/22/24 05:00 21:43 22:12 WBC 13.7 H RBC 3.47 L Hgb 11.3 L Hct 33.8 L MCV 97 MCH 32.6 MCHC 33.4 RDW Std Deviation 47.8 H Plt Count 259 D Neut % (Auto) 93 H Lymph % (Auto) 2 L [place] % (Auto) 4 Eos % (Auto) 0 Baso % (Auto) 1 Neut # (Auto) 12.7 H Lymph # (Auto) 0.2 L [place] # (Auto) 0.5 Eos # (Auto) 0.0 Baso # (Auto) 0.1 Immature Gran # (Auto) 0.20 H Absolute Nucleated RBC 0.07 H Immature Gran % 2 H Nucleated RBC % 1 H PT 12.7 H INR 1.2 APTT 28.5 Puncture Site ABG pH ABG pCO2 ABG pO2 ABG HCO3 ABG O2 Saturation ABG Base Excess Oxygen Liter Flow FiO2 Sodium 135 L Potassium 5.2 H Chloride 111 H Carbon Dioxide 10.3 L* Anion Gap 14 BUN 56 H Creatinine 2.2 H Estim Creat Clear Calc 33.8 L eGFR 26 L BUN/Creatinine Ratio 25 H Glucose 210 H Calculated Osmolality 291 Lactic Acid 2.2 H Calcium 8.3 Corrected Calcium Phosphorus Magnesium Total Bilirubin AST ALT Alkaline Phosphatase Total Protein Albumin Globulin Albumin/Globulin Ratio Random Vancomycin Hepatitis A IgM Ab Non Reactive Hep Bs Antigen Non Reactive Hep B Core IgM Ab Non Reactive Hepatitis C Antibody Non Reactive HIV 1&2 Antibody Rapid Blood Type A Positive Antibody Screen NEGATIVE Blood Bank Wristband ID Yes 11/23/24 11/23/24 11/23/24 01:32 02:09 04:07 WBC RBC Hgb Hct MCV MCH MCHC RDW Std Deviation Plt Count Neut % (Auto) Lymph % (Auto) [place] % (Auto) Eos % (Auto) Baso % (Auto) Neut # (Auto) Lymph # (Auto) [place] # (Auto) Eos # (Auto) Baso # (Auto) Immature Gran # (Auto) Absolute Nucleated RBC Immature Gran % Nucleated RBC % PT INR APTT Puncture Site Arterial Line Arterial Line ABG pH 7.22 L 7.26 L ABG pCO2 28 L 24 L ABG pO2 69 L D 94 D ABG HCO3 12 L 11 L ABG O2 Saturation 89 L 95 ABG Base Excess -15 L -15 L Oxygen Liter Flow 10 8 FiO2 Sodium Potassium Chloride Carbon Dioxide Anion Gap BUN Creatinine Estim Creat Clear Calc eGFR BUN/Creatinine Ratio Glucose Calculated Osmolality Lactic Acid 1.9 Calcium Corrected Calcium Phosphorus Magnesium Total Bilirubin AST ALT Alkaline Phosphatase Total Protein Albumin Globulin Albumin/Globulin Ratio Random Vancomycin Hepatitis A IgM Ab Hep Bs Antigen Hep B Core IgM Ab Hepatitis C Antibody HIV 1&2 Antibody Rapid Blood Type Antibody Screen Blood Bank Wristband ID 11/23/24 11/23/24 11/23/24 05:34 06:27 09:15 WBC 11.9 H RBC 3.28 L Hgb 10.8 L Hct 32.0 L MCV 98 MCH 32.9 MCHC 33.8 RDW Std Deviation 47.8 H Plt Count 219 D Neut % (Auto) 90 H Lymph % (Auto) 3 L [place] % (Auto) 4 Eos % (Auto) 0 Baso % (Auto) 1 Neut # (Auto) 10.8 H Lymph # (Auto) 0.3 L [place] # (Auto) 0.5 Eos # (Auto) 0.0 Baso # (Auto) 0.1 Immature Gran # (Auto) 0.25 H Absolute Nucleated RBC 0.12 H Immature Gran % 2 H Nucleated RBC % 1 H PT 12.4 H INR 1.1 APTT 26.9 Puncture Site Arterial Line ABG pH 7.15 L* D ABG pCO2 35 D ABG pO2 355 H D ABG HCO3 12 L ABG O2 Saturation 100 H ABG Base Excess -16 L Oxygen Liter Flow FiO2 100 Sodium 136 Potassium 4.9 Chloride 110 H Carbon Dioxide 12.3 L* Anion Gap 14 BUN 54 H Creatinine 1.9 H Estim Creat Clear Calc 39.1 L eGFR 31 L BUN/Creatinine Ratio 28 H Glucose 204 H Calculated Osmolality 292 Lactic Acid 1.6 Calcium 8.1 L Corrected Calcium 9.1 Phosphorus 7.0 H Magnesium 2.0 Total Bilirubin 0.2 L AST 68 H ALT 25 Alkaline Phosphatase 93 Total Protein 4.6 L Albumin 2.8 L Globulin 1.8 L Albumin/Globulin Ratio 1.6 Random Vancomycin 8.0 Hepatitis A IgM Ab Hep Bs Antigen Hep B Core IgM Ab Hepatitis C Antibody HIV 1&2 Antibody Rapid Non-Reactive Blood Type Antibody Screen Blood Bank Wristband ID Impressions Impression: # Anastomotic site perforation of the gastrojejunostomy requiring exploratory laparotomy with Gerson's patch Continue to monitor postoperatively ABG Interpretation ABG results: 11/22/24 11/23/24 11/23/24 17:58 02:09 04:07 ABG pH 7.25 L 7.22 L 7.26 L ABG pCO2 22 L 28 L 24 L ABG pO2 102 69 L D 94 D ABG HCO3 9 L* 12 L 11 L ABG O2 Saturation 97 89 L 95 ABG Base Excess -16 L -15 L -15 L 11/23/24 06:27 ABG pH 7.15 L* D ABG pCO2 35 D ABG pO2 355 H D ABG HCO3 12 L ABG O2 Saturation 100 H ABG Base Excess -16 L Assessment & Plan A&P Narrative abx are empirical. 5 d of rx ok post operatively (stop it trial) presumptive peritonitis will f/u on sat Time Spent With Patient Time: Total time spent is greater than 50% in coordination of care (as documented) at patient's floor/unit and/or counseling patient: Procedures Arterial Line Size (Gauge): 20
[2024-11-23] MEDS: MICAFUNGIN SODIUM INJ 100 MG in SODIUM CHLORIDE 0.9% 100 ML IV (21:22)
[2024-11-23] MEDS: fentaNYL 2,500 MCG/250 ML BAG 2,500 MCG/250 ML BAG 15 MCG IV (23:49)
[2024-11-24] VITALS (114 sets, daily range): BP systolic 63–150; BP diastolic 40–127; PULSE 62–152; RESP 0–100; TEMP 36.1–36.4; O2SAT 81–100; BMI 45.0
[2024-11-24] MEDS: HYDROCORTISONE SOD SUCC INJ 100 MG VIAL 50 MG IV
[2024-11-24] MEDS: VASOPRESSIN IN NS IVPB 20 UNIT/100 ML BAG 9 UNIT IV (01:35)
[2024-11-24] MEDS: PROPOFOL 1,000 MG IVPB 1,000 MG/100 ML VIAL 14.628 MG IV ×2 (04:10→10:06)
[2024-11-24 05:20] LABS: Base Excess -3 (-3-3); HCO3 21 mEq/L (20-26); Inspired Oxygen, FIO2 30 %; O2 Saturation 99 % (91-98); PCO2 33 mmHg (32.0-48.0); PO2 124 mmHg (83-108); pH, Arterial 7.42 (7.35-7.45)
[2024-11-24 06:18] LABS: Basophils # (Auto) 0.1 Thou/mm3 (0.0-0.2); Basophils % (Auto) 1 % (0-2.5); Eosinophils % (Auto) 0 % (0-10); Hematocrit 24.7 % (36.0-46.0); Immature Granulocytes % (Auto) 4 % (0-0); Lymphocytes # (Auto) 0.3 Thou/mm3 (1.0-4.8); Lymphocytes % (Auto) 3 % (10-50); Mean Corpuscular HGB Conc 33.2 g/dl (31.0-37.0); Mean Corpuscular Hemoglobin 32.3 pg (25.0-35.0); Mean Corpuscular Volume 97 fL (80-100); Monocytes # (Auto) 0.6 Thou/mm3 (0.0-0.8); Monocytes % (Auto) 6 % (0-12); Neutrophils # (Auto) 8.5 Thou/mm3 (1.8-7.7); Neutrophils % (Auto) 86 % (37-80); Nucleated Red Blood Cell # 0.15 Thou/mm3 (0.00-0.00); Nucleated Red Blood Cell % 2 /100 WBC (0); Platelet Count 124 Thou/mm3 (140-440); RDW Standard Deviation 48.7 fL (36.4-46.3); Red Blood Count 2.54 Miln/mm3 (4.00-5.20); White Blood Count 9.9 Thou/mm3 (3.6-11.0)
[2024-11-24] MEDS: metroNIDAZOLE/NS 500 MG IVPB 500 MG/100 ML BAG 200 MG IV ×3 (06:20→21:21)
[2024-11-24 06:23] LABS: Allen Test Not Performed; Puncture Site Arterial Line
[2024-11-24 06:32] LABS: Hemoglobin 8.2 g/dL (12.0-16.0)
[2024-11-24] MEDS: Sodium Bicarb 8.4% 50ml Vial* 150 MEQ in DEXTROSE 5%-WATER 1,000 ML 100 MEQ IV (07:47)
[2024-11-24 09:30] LABS: Alanine Aminotransferase 13 U/L (10-49); Albumin, Serum 2.8 gm/dL (3.5-5.0); Albumin/Globulin Ratio 1.8 (1.2-2.2); Alkaline Phosphatase 83 U/L (46-116); Anion Gap 10 (7-16); Aspartate Amino Transferase 45 U/L (0-34); BUN/Creatinine Ratio 29 Ratio (12-20); Bilirubin,Total 0.2 mg/dL (0.3-1.2); Blood Urea Nitrogen 41 mg/dL (9-23); Calcium 7.5 mg/dL (8.3-10.6); Calcium (Corrected) 8.5 mg/dL (8.5-10.1); Carbon Dioxide 19.9 mMol/L (20.0-31.0); Chloride 107 mMol/L (98-107); Creatinine (Component) 1.4 mg/dL (0.6-1.3); Estimated Creatinine Clearance 60.4 mL/min (>60); Globulin 1.6 gm/dL (2.3-3.5); Glucose 247 mg/dL (74-106); Magnesium 1.9 mg/dL (1.6-2.6); Osmolality,Calculated 291 (275-295); Phosphorous 3.4 mg/dL (2.4-5.1); Potassium 4.1 mMol/L (3.4-5.1); Sodium 137 mMol/L (136-145); Total Protein 4.4 gm/dL (5.7-8.2); eGFR 45 See Note
[2024-11-24] MEDS: cefTRIAXone 2 GM in SODIUM CHLORIDE 0.9% (P) 50 ML IV (09:41)
[2024-11-24] MEDS: HYDROCORTISONE SOD SUCC INJ 100 MG VIAL IV (09:42)
[2024-11-24] MEDS: PANTOPRAZOLE INJ 40 MG VIAL IV ×2 (09:42→21:21)
[2024-11-24 10:10] LABS: Vancomycin,Random 18.1 mcg/mL
[2024-11-24] MEDS: ALTEPLASE RECOMB INJ 2 MG VIAL INDWELLCAT (10:19)
[2024-11-24] MEDS: DEXMEDETOMIDINE 200 MCG IVPB 200 MCG/50 ML BOTTLE 6.135 MCG IV (10:26)
[2024-11-24] MEDS: PROPOFOL 1,000 MG IVPB 1,000 MG/100 ML VIAL 11.703 MG IV (10:44)
[2024-11-24] MEDS: fentaNYL 2,500 MCG/250 ML BAG 2,500 MCG/250 ML BAG 10 MCG IV (10:44)
--- NOTE | 2024-11-24 11:30 | PC.SS ---
Update: Patient remains intubated/sedated. Patient receiving pressors. No feeding at current time. Patient in possession of wound vac and LO drain. Skin issues present.
[2024-11-24] MEDS: POT PHOS 15 mMol in NS 250 ML 15 MMOL/250 ML BAG 62.5 MMOL IV (11:50)
[2024-11-24] MEDS: HEPARIN SOD INJ 5000 UNIT/ML VIAL SC (11:54)
[2024-11-24] MEDS: Magnesium Sulfate 2 GM Ivpb 2 GM/50 ML BAG IV (12:01)
[2024-11-24] MEDS: DEXMEDETOMIDINE 200 MCG IVPB 200 MCG/50 ML BOTTLE 24.54 MCG IV (13:01)
[2024-11-24] MEDS: DEXMEDETOMIDINE 200 MCG IVPB 200 MCG/50 ML BOTTLE 42.945 MCG IV ×7 (14:14→23:00)
[2024-11-24] MEDS: fentaNYL 2,500 MCG/250 ML BAG 2,500 MCG/250 ML BAG IV (15:45)
--- NOTE | 2024-11-24 17:55 | PD.IMPROG ---
Documentation for date of: 11/24/24 Subjective Subjective Interval history: Remains intubated On pressors Exam Vital Signs Temp Pulse Resp BP Pulse Ox O2 Del Method O2 Flow Rate 97.1 F 75 25 H 101/76 99 Room Air 10 11/24/24 16:00 11/24/24 17:15 11/24/24 06:24 11/24/24 17:15 11/24/24 17:15 11/22/24 18:00 11/23/24 02:09 FiO2 30 11/24/24 14:34 Routine Respiratory Exam Comments: Mechanically ventilated Routine Abdominal Exam Comments: No bowel sounds Objective Labs 11/24/24 05:00 11/24/24 05:21 Labs: Laboratory Results - last 24 hr 11/24/24 11/24/24 11/24/24 05:00 05:01 05:21 WBC 9.9 RBC 2.54 L Hgb 8.2 L D Hct 24.7 L MCV 97 MCH 32.3 MCHC 33.2 RDW Std Deviation 48.7 H Plt Count 124 L D Neut % (Auto) 86 H Lymph % (Auto) 3 L [place] % (Auto) 6 Eos % (Auto) 0 Baso % (Auto) 1 Neut # (Auto) 8.5 H Lymph # (Auto) 0.3 L [place] # (Auto) 0.6 Eos # (Auto) 0.0 Baso # (Auto) 0.1 Immature Gran # (Auto) 0.40 H Absolute Nucleated RBC 0.15 H Immature Gran % 4 H Nucleated RBC % 2 H Puncture Site Arterial Line ABG pH 7.42 D ABG pCO2 33 ABG pO2 124 H D ABG HCO3 21 ABG O2 Saturation 99 H ABG Base Excess -3 FiO2 30 Sodium 137 Potassium 4.1 D Chloride 107 Carbon Dioxide 19.9 L Anion Gap 10 BUN 41 H Creatinine 1.4 H D Estim Creat Clear Calc 60.4 L eGFR 45 L BUN/Creatinine Ratio 29 H Glucose 247 H Calculated Osmolality 291 Calcium 7.5 L Corrected Calcium 8.5 Phosphorus 3.4 Magnesium 1.9 Total Bilirubin 0.2 L AST 45 H ALT 13 Alkaline Phosphatase 83 Total Protein 4.4 L Albumin 2.8 L Globulin 1.6 L Albumin/Globulin Ratio 1.8 Random Vancomycin 18.1 Impressions Impression: # Status post exploratory laparotomy for perforation of the gastrojejunostomy # Remains mechanically ventilated # On pressors Continue current management ABG Interpretation ABG results: 11/22/24 11/23/24 11/23/24 17:58 02:09 04:07 ABG pH 7.25 L 7.22 L 7.26 L ABG pCO2 22 L 28 L 24 L ABG pO2 102 69 L D 94 D ABG HCO3 9 L* 12 L 11 L ABG O2 Saturation 97 89 L 95 ABG Base Excess -16 L -15 L -15 L 11/23/24 11/24/24 06:27 05:01 ABG pH 7.15 L* D 7.42 D ABG pCO2 35 D 33 ABG pO2 355 H D 124 H D ABG HCO3 12 L 21 ABG O2 Saturation 100 H 99 H ABG Base Excess -16 L -3 Assessment & Plan A&P Narrative abx are empirical. 5 d of rx ok post operatively (stop it trial) presumptive peritonitis will f/u on sat Time Spent With Patient Time: Total time spent is greater than 50% in coordination of care (as documented) at patient's floor/unit and/or counseling patient: Procedures Arterial Line Size (Gauge): 20
--- NOTE | 2024-11-24 20:11 | PD.RESPRO ---
Documentation for date of: 11/24/24 Subjective Subjective Interval history: 11/23: CTAP revealed free air in abdomen suspicious for ischemic colitis, general surgeon Dr. Thao was consulted and performed surgical repair of perforated gastrojejunostomy, Gerson patch, washout, and drain placement without complications. Patient was taken back to ICU. 11/24: Patient examined bedside, remains on mechanical ventilation today. Initial plan was to pursue SBT with possible extubation, however patient's mentation would not allow for successful extubation. Will continue with ventilation today with precedex and fentanyl RASS goals adjusted to -2, attempt SBT with sedation holiday tomorrow, possible extubation. Lab work reveals drop in hemoglobin and platelets, however surgery was performed yesterday, no signs of bleeding noted today and minimal serous output in wound vac. Will begin DVT prophylaxis with weight-adjusted heparin. Will attempt to wean off vasopressin entirely today if tolerated, can continue levophed if needed. Lab work also reveals improvement to the bicarbonate levels, today 19.9, will stop bicarbonate drip. Exam Vital Signs Temp Pulse Resp BP Pulse Ox O2 Del Method O2 Flow Rate 97.1 F 73 19 107/97 H 100 Room Air 10 11/24/24 16:00 11/24/24 19:04 11/24/24 19:04 11/24/24 19:04 11/24/24 19:04 11/22/24 18:00 11/23/24 02:09 FiO2 30 11/24/24 19:04 Narrative Exam General: Sedated, on mechanical ventilation, large body habitus HEENT: Atraumatic/normocephalic Heart: RRR, S1 and S2 without clicks or murmurs Lungs: Clear on auscultation bilaterally Abdomen: Soft, nontender. Bowel sounds present on all quadrants Skin: Intact, echchymosis present on bilateral upper extremities, no cyanosis Objective Labs 11/26/24 04:20 11/26/24 04:20 Labs: Laboratory Results - last 24 hr 11/24/24 11/24/24 11/24/24 05:00 05:01 05:21 WBC 9.9 RBC 2.54 L Hgb 8.2 L D Hct 24.7 L MCV 97 MCH 32.3 MCHC 33.2 RDW Std Deviation 48.7 H Plt Count 124 L D Neut % (Auto) 86 H Lymph % (Auto) 3 L [place] % (Auto) 6 Eos % (Auto) 0 Baso % (Auto) 1 Neut # (Auto) 8.5 H Lymph # (Auto) 0.3 L [place] # (Auto) 0.6 Eos # (Auto) 0.0 Baso # (Auto) 0.1 Immature Gran # (Auto) 0.40 H Absolute Nucleated RBC 0.15 H Immature Gran % 4 H Nucleated RBC % 2 H Puncture Site Arterial Line ABG pH 7.42 D ABG pCO2 33 ABG pO2 124 H D ABG HCO3 21 ABG O2 Saturation 99 H ABG Base Excess -3 FiO2 30 Sodium 137 Potassium 4.1 D Chloride 107 Carbon Dioxide 19.9 L Anion Gap 10 BUN 41 H Creatinine 1.4 H D Estim Creat Clear Calc 60.4 L eGFR 45 L BUN/Creatinine Ratio 29 H Glucose 247 H Calculated Osmolality 291 Calcium 7.5 L Corrected Calcium 8.5 Phosphorus 3.4 Magnesium 1.9 Total Bilirubin 0.2 L AST 45 H ALT 13 Alkaline Phosphatase 83 Total Protein 4.4 L Albumin 2.8 L Globulin 1.6 L Albumin/Globulin Ratio 1.8 Random Vancomycin 18.1 ABG Interpretation ABG results: 11/22/24 11/23/24 11/23/24 17:58 02:09 04:07 ABG pH 7.25 L 7.22 L 7.26 L ABG pCO2 22 L 28 L 24 L ABG pO2 102 69 L D 94 D ABG HCO3 9 L* 12 L 11 L ABG O2 Saturation 97 89 L 95 ABG Base Excess -16 L -15 L -15 L 11/23/24 11/24/24 06:27 05:01 ABG pH 7.15 L* D 7.42 D ABG pCO2 35 D 33 ABG pO2 355 H D 124 H D ABG HCO3 12 L 21 ABG O2 Saturation 100 H 99 H ABG Base Excess -16 L -3 Quality Measures Quality Measures VTE therapy (Heparin) Assessment & Plan Assessment Current Active Medications: Generic Name Dose Route Start Last Admin Trade Name Freq PRN Reason Stop Dose Admin Acetaminophen 650 mg 11/22/24 00:45 Acetaminophen 325 Mg Tablet PO 12/22/24 00:44 Q6H PRN Fever >100.3 or pain Protocol Hydrocodone Bitart/Acetaminophen 1 tab 11/22/24 00:51 11/23/24 00:32 Hydrocodone/Apap 5/325 Tablet PO 11/27/24 00:50 1 tab Q4HR PRN Administration PAIN SCALE 4-10(Mod-Sev Protocol Al Hydrox/Mg Hydrox/Simethicone 30 ml 11/22/24 00:53 Mg Hyd/Al Hyd/Sandie (Maalox Reg) Susp 30 Ml Udc PO 12/22/24 00:52 Q4HR PRN UPSET STOMACH/INDIGESTION Albuterol/Ipratropium 3 ml 11/22/24 00:45 11/23/24 02:09 Albuterol/Ipratropium (Duoneb) Rt [place] 3 Ml Nebu INH 12/22/24 00:44 3 ml Q2HR PRN Administration SHORTNESS OF BREATH OR WHEEZE Ambien Cr 12.5 Mg 0 ea 11/22/24 21:00 11/23/24 20:30 Tablet PO 12/22/24 20:59 Not Given HS ZAK Heparin Sodium (Porcine) 7,500 unit 11/24/24 22:00 Heparin Sod Inj 5000 Unit/Ml Vial SC 12/08/24 21:59 Q8HR ZAK Norepinephrine Bitartrate 16 mg in 250 mls @ 4.571 mls/hr 11/22/24 02:54 11/24/24 18:00 Levophed In Ns 16mg/250ml IV 12/22/24 02:53 0.02 mcg/kg/min .Q24H PRN 1.829 mls/hr PER PROTOCOL Titration Protocol 0.05 MCG/KG/MIN Ceftriaxone Sodium 2 gm/ 50 mls @ 100 mls/hr 11/22/24 11:00 11/24/24 09:41 Sodium Chloride IV 11/29/24 10:59 100 mls/hr QDAY ZAK Administration Metronidazole 500 mg in 100 mls @ 200 mls/hr 11/22/24 10:56 11/24/24 14:26 Flagyl 500 Mg Iv IV 11/29/24 10:55 200 mls/hr Q8HR ZAK Administration Micafungin Sodium 100 mg/ 100 mls @ 100 mls/hr 11/23/24 21:00 11/23/24 21:22 Sodium Chloride IV 12/23/24 20:59 100 mls/hr DAILY@2100 ZAK Administration Propofol 1,000 mg in 100 mls @ 2.926 mls/hr 11/24/24 10:19 11/24/24 11:30 Diprivan Ivpb IV 12/23/24 04:48 0 mcg/kg/min .Q24H PRN 0 mls/hr PER PROTOCOL Titration Protocol 5 MCG/KG/MIN Fentanyl Citrate 2,500 mcg in 250 mls @ 2.5 mls/hr 11/24/24 15:06 11/24/24 18:00 Sublimaze Inj 2,500 Mcg/250 Ml Bag IV 11/28/24 04:49 75 mcg/hr .Q24H PRN 7.5 mls/hr PER PROTOCOL Titration Protocol 25 MCG/HR Dexmedetomidine/Sodium Chloride 200 mcg in 50 mls @ 6.135 mls/hr 11/24/24 15:07 11/24/24 18:16 Precedex Ivpb IV 12/24/24 09:48 1.4 mcg/kg/hr .Q8H9M PRN 42.945 mls/hr Per PROTOCOL Administration Protocol 0.2 MCG/KG/HR Levothyroxine Sodium 125 mcg 11/22/24 06:00 11/24/24 06:19 Levothyroxine Sodium 125 Mcg Tablet PO 12/22/24 05:59 Not Given ACBR ZAK Methylprednisolone Sodium Succinate 40 mg 11/25/24 09:00 Methylprednisolone Sod Succ 40 Mg Vial IVP 12/02/24 08:59 QDAY ZAK Ondansetron HCl 4 mg 11/22/24 00:51 11/22/24 12:58 Ondansetron Inj 2 Mg/Ml Inj 2 Ml IV 12/22/24 00:50 4 mg Q6H PRN Administration NAUSEA OR VOMITING Protocol Pantoprazole Sodium 40 mg 11/24/24 09:00 11/24/24 09:42 Pantoprazole Inj 40 Mg Vial IV 12/24/24 08:59 40 mg BID ZAK Administration Plan Ms. 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 Neurological #Sedation Patient is on fentanyl and precedex drips, with RASS goal of -2 Propofol has been weaned off 11/24 - Will plan for sedation holiday on 11/25 with possible SBT Cardiology #Shock Concern for septic shock with suspected sources likely GI vs Pneumonia recently treated with azithromycin for 5 days starting on 11/16/2024. History and PE notable for profuse watery diarrhea and severe abdominal tenderness. Alternative shock etiologies includes cardiogenic, distributive (non-septic), obstructive, hypovolemic. Plan: - Levophed Gtt and Vasopressin with MAP goal >65. - continue antibiotics as below. - Titrate pressors as tolerated. - On 11/25, vasopressin was stopped and levophed reduced to rate of 0.02 mcg/kg/min #Hx of hypertension. Home medication lisinopril 20 Mg p.o. daily. Patient currently hypotensive. Plan: ? Home medication on hold given hypotensive blood pressure and current vasopressor requirement Pulmonary #Mechanical ventilation due to concern for inability to protect airway Has remained on mechanical ventilation after perforated gastrojejunostomy repair. SBT and extubation was planned for 11/24 however patient was unable to follow commands. Plan: - Plan for SBT and possible extubation on 11/25 if patients mentation allows #?Pneumonia. Patient was recently diagnosed with pneumonia, treated with azithromycin for 5 days starting on 11/16/2024. Chest x-ray on admission showed early pneumonia right upper lobe. New onset pneumonia VS radiologic findings of previously treated pneumonia. Lactic Acid: 3.2, Procalcitonin 19.01. On admission was started on vancomycin, Zosyn IV and fidaxomicin. Plan: -continue on ceftriaxone, metronidazole, IV vancomycin. -Blood cultures are negative preliminary. Gastrointestinal #Perforated gastrojejunostomy s/p repair, Gerson patch, washout, drain placement. Patient presented with intractable watery diarrhea for the past week. No blood no mucus. Recent antibiotic use and also recent travel to [place] where she was eating local food. Patient chronically on prednisone and monoclonal antibody upadacitinib for RA. On exam she has generalized abdominal pain tender to palpation in all quadrants, soft, mildly distended. History of Lynn-en-Y gastric bypass 20 years ago. CTAP showed pneumoperitoneum, air droplets in the wall of the colon, suspicious for ischemic bowel. General surgeon Dr. Thao was consulted, on 11/23/24 patient underwent repair of perforated gastrojejunostomy, Gerson patch, washout, drain placement without complications. On admission labs showed lactic acid 2.3, LDH 352, WBC 4.9. KUB did not show significant abnormalities. CT angio C/A/P was canceled due to worsening kidney function. In the ED patient received 4L normal saline IVF bolus, azithromycin and ceftriaxone IV x 1, on admission started with vancomycin, Zosyn and fidaxomicin. Plan: - continue on ceftriaxone, metronidazole, IV vancomycin. - started on micafungin. - Cultures are pending. ? Contact precautions. ? Stool studies ordered including calprotectin, Giardia, ova and parasites, H. pylori, norovirus, stool culture, stool for WBCs and C. difficile. ? GI Dr. Palacios consulted, Appreciate recommendations. ? Infectious disease Dr. Forte, Appreciate recommendations. Renal/Genitourinary #Acute Kidney Injury. On admission patient's CR 3.2. From chart review baseline CR between 1?1.2. Most likely prerenal in etiology in the setting of septic shock. Plan: -IV fluid resuscitation. -Reassess after fluid resusitation and monitor BUN/ARC CUTTER PLASMA ARC with QD CMP. -For essential medications that are renally cleared, adjust dosing daily. -Avoid Iodinated contrast media to prevent contrast induced nephropathy. -Avoid Gadolinium-based contrast agents to prevent nephrogenic systemic fibrosis. -Avoid Nephrotoxic medications and drugs that may have a detrimental effect on glomerular perfusion. #NAGMA. #Hyperkalemia #Hypernatremia. #Hypocalcemia. #Hyperphosphatemia. Patient has history of Lynn en Y Gastric bypass 20 years ago. Since then she has been hypocalcemic and low Vitamin D levels. K 5.3, Ca 6.8, Phos 6.4. Sodium bicarb on admission 18.3. ABG showed pH 7.25, pCO2 22, PaO2 102. Chemistry showed Na 135, bicarb 9, lactic acid 1.3, uric acid 7.1. Calculated osmolarity 292. Urine output has been decreasing, stable after surgery. Plan: - IVF support. - monitor with daily labs. - sodium bicarb IV was given 1/6 - 1.7, stopped after bicarbonate levels improved - replete electrolytes as necessary. - Continue strict BLAISE. Endocrine #?Adrenal Inssufficiency. Patient noted to be on mcfp steroid usage vs autoimmune etiology. History of rheumatoid arthritis and unknown etiology hypothyroidism. Last dose was several days prior. Blood pressure poorly responsive to IVF resusitation. Labs significant for Hyponatremia, Hyperkalemia, hypocalcemia and NAGMA consistent with AI. Plan: - discontinued hydrocortisone 50 mg Q6H. - discontinued home dose prednisone. - Continue pressure support to maintain MAP above 65. - Plan to start IV methylprednisone at same dose as 5mg prednisone qday. #Hx of hypothyroidism. Unknown etiology, . Patient's home medication levothyroxine 125 mcg p.o. daily. Patient's last dose increase was 2 months ago Plan: - resume home medication. Hematology #Mild thrombocytopenia #Coagulopathy Workup for suspected DIC showed PLT 297, PT 13.3, INR 1.2, PTT 30.4, fibrinogen 860, D-dimer > 3820, LDH 352 Platelets dropped to 124 on 11/24 from 219 day prior More likely related to OR procedure completed on 11/23, may also be from vancomycin use. DIC unlikely No signs of bleeding noted on 11/24 Heparin DVT prophylaxis started on 11/24 Plan: - Will monitor platelet and hemoglobin levels. If platelets continue to drop or if bleeding is noted, stop heparin - May consider changing antibiotic regimen if thrombocytopenia worsens #Normocytic anemia. Hemoglobin noted to drop to 8.2 from 10.8, likely related from surgical procedure on 11/23. No signs of active bleeding noted on 11/24 Plan -Monitor with daily CBC. -Transfuse pRBC for hemoglobin < 7.0 Rheumatology #Hx of rheumatoid arthritis. -Patient has long history of rheumatoid arthritis, underwent multiple treatments with methotrexate and other DMARDs, currently on prednisone 10 mg and monoclonal antibody upadacitinib for prolonged time. Plan: -upadacitinib on hold. - Will stop prednisone 5mg PO qday and start IV alternative methylprednisolone dose adjusted to 5mg prednisone Infectious Disease #Perforated gastrojejunostomy s/p repair. WBCs on admission WNL, lactic acid 2.3, ESR and CRP are elevated but the patient has autoimmune condition. Chronic steroid and monoclonal antibody use. C diff canceled by lab due to sample being firm, c difficile infection less likely. Plan: -continue on ceftriaxone, metronidazole and IV vancomycin. -started on micafungin. -Pending stool studies, O&P hepatitis panel, norovirus, H. pylori, Giardia Skin #BUE dorsal ecchymosis. -Possibly related to underlying coagulopathy, will continue to monitor. FEN: NPO, total bowel rest for 1 week DVT prophylaxis: Heparin 7500 TID, adjusted for patient's BMI GI prophylaxis: IV pantoprazole 40mg BID Dispo: Remains in ICU for pressor support and mechanical ventilation. SBT planned for 11/25 CODE STATUS: Full code Patient case discussed with attending physician Dr. Vickey Roman DO PGY-3 Attending Provider Attestation/Addendum Patient seen and examined with above resident, Vane Roman DO. I agree with the findings, assessment, and plan of care as documented except for any differences below. Patient continues to do well postoperatively though her mentation is the limiting factor ability to wean successfully off mechanical ventilation. Sedation holiday led to increasing agitation and we will reattempt with utilization of Precedex to keep her calm. She does open her eyes and is moving all extremities but likely component of pain and delirium preventing her from following commands consistently. Patient's and mother were at bedside throughout the day and trying to encourage her to comply unsuccessfully. Patient's blood pressure continues to improve with decreasing pressor requirements. Blood gas shows continued improvement in gas exchange and metabolic acidosis with bicarb now near 20. Continue to monitor serially but will stop sodium bicarb drip now. She continues to improve. Output from wound VAC remains limited along the LO drain. Continue to monitor closely. No plans for initiation of tube feeds and she does not have resumption of GI motility at this point. Alternatively, we are considering adequate timing of initiation of TPN, though delaying parenteral nutrition may be warranted as he has limited risk of infection and perhaps GI functionality and continuity will be adequate to directly go to enteral route. Patient continues to show progress and we will discontinue stress dose steroids and maintain him on low-dose prednisone to optimize wound healing at the site of gastric perforation. Critical care time: I personally spent 45 minutes for review of physiologic parameters, directing plan of care throughout the day, coordination of care with other specialties, and counseling patient's family at bedside. This is exclusive of time spent teaching housestaff or performing any separate billable procedures. Patient continues to require critical care services for septic shock secondary to upper GI perforation further complicated by acute kidney injury and acute respiratory failure secondary to shock. Patient remains at risk for further morbidity and mortality warranting ongoing close monitoring and care when available in the intensive care unit.
[2024-11-24] MEDS: MICAFUNGIN SODIUM INJ 100 MG in SODIUM CHLORIDE 0.9% 100 ML IV (21:21)
[2024-11-24] MEDS: HEPARIN SOD INJ 5000 UNIT/ML VIAL 7500 UNIT SC (22:45)
[2024-11-25] VITALS (45 sets, daily range): BP systolic 77–277; BP diastolic 41–277; PULSE 60–85; RESP 11–100; TEMP 36.1–36.8; O2SAT 88–100; BMI 47.7
[2024-11-25] MEDS: DEXMEDETOMIDINE 200 MCG IVPB 200 MCG/50 ML BOTTLE 42.945 MCG IV ×7 (00:32→09:39)
[2024-11-25] MEDS: RINGERS LACTATED 1000 ML 500 ML 999 ML IV (02:20)
[2024-11-25] MEDS: HEPARIN SOD INJ 5000 UNIT/ML VIAL 7500 UNIT SC ×3 (05:19→21:30)
[2024-11-25] MEDS: metroNIDAZOLE/NS 500 MG IVPB 500 MG/100 ML BAG 200 MG IV ×3 (05:20→21:32)
[2024-11-25 05:25] LABS: Base Excess -2 (-3-3); HCO3 22 mEq/L (20-26); Inspired Oxygen, FIO2 97 %; O2 Saturation 97 % (91-98); PCO2 36 mmHg (32.0-48.0); PO2 92 mmHg (83-108)
[2024-11-25 05:42] LABS: Allen Test Performed/OK; Puncture Site Right Brachial
[2024-11-25 06:17] LABS: Basophils % (Auto) 0 % (0-2.5); Eosinophils # (Auto) 0.1 Thou/mm3 (0.0-0.5); Eosinophils % (Auto) 1 % (0-10); Hematocrit 22.9 % (36.0-46.0); Immature Granulocytes % (Auto) 6 % (0-0); Immature Granulocytes Auto 0.39 Thou/mm3 (0.00-0.00); Lymphocytes # (Auto) 0.7 Thou/mm3 (1.0-4.8); Lymphocytes % (Auto) 10 % (10-50); Mean Corpuscular HGB Conc 32.8 g/dl (31.0-37.0); Mean Corpuscular Hemoglobin 32.1 pg (25.0-35.0); Mean Corpuscular Volume 98 fL (80-100); Monocytes # (Auto) 0.5 Thou/mm3 (0.0-0.8); Monocytes % (Auto) 7 % (0-12); Neutrophils # (Auto) 5.3 Thou/mm3 (1.8-7.7); Neutrophils % (Auto) 76 % (37-80); Nucleated Red Blood Cell # 0.27 Thou/mm3 (0.00-0.00); Nucleated Red Blood Cell % 4 /100 WBC (0); Platelet Count 82 Thou/mm3 (140-440); RDW Standard Deviation 49.1 fL (36.4-46.3); Red Blood Count 2.34 Miln/mm3 (4.00-5.20); White Blood Count 6.9 Thou/mm3 (3.6-11.0)
[2024-11-25 06:19] LABS: Hemoglobin 7.5 g/dL (12.0-16.0)
[2024-11-25 06:56] LABS: Alanine Aminotransferase 26 U/L (10-49); Albumin, Serum 2.3 gm/dL (3.5-5.0); Albumin/Globulin Ratio 1.6 (1.2-2.2); Alkaline Phosphatase 66 U/L (46-116); Anion Gap 9 (7-16); Aspartate Amino Transferase 33 U/L (0-34); BUN/Creatinine Ratio 34 Ratio (12-20); Bilirubin,Total < 0.2 mg/dL (0.3-1.2); Blood Urea Nitrogen 44 mg/dL (9-23); Calcium 7.2 mg/dL (8.3-10.6); Calcium (Corrected) 8.6 mg/dL (8.5-10.1); Carbon Dioxide 22.5 mMol/L (20.0-31.0); Chloride 111 mMol/L (98-107); Creatinine (Component) 1.3 mg/dL (0.6-1.3); Estimated Creatinine Clearance 67.4 mL/min (>60); Globulin 1.4 gm/dL (2.3-3.5); Glucose 145 mg/dL (74-106); Magnesium 2.3 mg/dL (1.6-2.6); Osmolality,Calculated 297 (275-295); Phosphorous 3.4 mg/dL (2.4-5.1); Potassium 4.2 mMol/L (3.4-5.1); Sodium 142 mMol/L (136-145); Total Protein 3.7 gm/dL (5.7-8.2); eGFR 49 See Note
[2024-11-25] MEDS: PANTOPRAZOLE INJ 40 MG VIAL IV ×2 (08:45→21:31)
--- NOTE | 2024-11-25 08:51 | PD.SURPROG ---
Documentation for date of: 11/25/24 Subjective Subjective Brief History: 54F with rheumatoid arthritis on chronic prednisone, obesity presenting yesterday with diarrhea and abdominal pain. Pt had recently traveled to [place] and also took a z-natalie which completed 1, and had watery diarrhea. Today pt underwent CT AP with findings of pneumoperitoneum and droplets adjacent to colon, she is on two pressors which are being weaned PMH: RA, hypothyroidism PSHx: Gastric bypass surgery, appendectomy, abdominoplasty Meds: on prednisone for years, no antiplt or anticoagulation Allergies: Bactrim Social hx: Nonsmoker Narrative: Off pressor support, comfortable on precedex, planned for repeat SBT today, afebrile with normal WBC, LO with 360cc serous output past 24h, minimal NG output Exam Vital Signs Temp Pulse Resp BP Pulse Ox O2 Del Method O2 Flow Rate 98.3 F 61 17 80/60 L 96 Room Air 10 11/25/24 04:00 11/25/24 06:19 11/25/24 06:19 11/25/24 06:19 11/25/24 06:19 11/22/24 18:00 11/23/24 02:09 FiO2 21 11/25/24 06:19 Constitutional Constitutional: no acute distress Routine Respiratory Exam Respiratory: Present patient mechanically ventilated Routine Abdominal Exam Abdominal: Present soft and wound (midline wound 18cm in craniocaudal dimension, 5.5cm wide and 2cm deep, no surrounding erythema, no fluctuance); Absent distended Results Results: Laboratory Laboratory results: results reviewed Assessment & Plan Plan 54F with RA chronically on prednisone, remote history of gastric bypass who initially presented with diarrhea, with subsequent findings of pneumoperitoneum on CT now s/p emergent laparotomy with repair of perforated gastrojejunostomy, washout and drain placement 11/23, gradually recovering Appreciate ICU care NG to LIS, awaiting return of bowel function Monitor LO output Wound vac change MWF Procedures Procedures Repair of perforated gastrojejunostomy, Gerson patch, washout, drain placement
[2024-11-25] MEDS: cefTRIAXone 2 GM in SODIUM CHLORIDE 0.9% (P) 50 ML IV (09:16)
[2024-11-25] MEDS: DEXMEDETOMIDINE 200 MCG IVPB 200 MCG/50 ML BOTTLE 21.473 MCG IV ×2 (11:00→15:10)
--- NOTE | 2024-11-25 11:04 | PD.IMPROG ---
Documentation for date of: 11/25/24 Subjective Subjective Interval history: Patient evaluated in the ICU Still somewhat sedated Extubated and on Ventimask Slight drop in hemoglobin hematocrit 7.5 and 22.9 Exam Vital Signs Temp Pulse Resp BP Pulse Ox O2 Del Method O2 Flow Rate 97.1 F 61 12 111/74 98 Room Air 10 11/25/24 08:02 11/25/24 10:16 11/25/24 10:16 11/25/24 10:16 11/25/24 10:16 11/22/24 18:00 11/23/24 02:09 FiO2 21 11/25/24 10:16 Constitutional Comments: Still somewhat somnolent Routine Respiratory Exam Comments: Extubated and on Ventimask Objective Labs 11/25/24 05:00 11/25/24 05:27 Labs: Laboratory Results - last 24 hr 11/25/24 11/25/24 11/25/24 04:01 05:00 05:27 WBC 6.9 RBC 2.34 L Hgb 7.5 L Hct 22.9 L MCV 98 MCH 32.1 MCHC 32.8 RDW Std Deviation 49.1 H Plt Count 82 L D Neut % (Auto) 76 Lymph % (Auto) 10 [place] % (Auto) 7 Eos % (Auto) 1 Baso % (Auto) 0 Neut # (Auto) 5.3 Lymph # (Auto) 0.7 L [place] # (Auto) 0.5 Eos # (Auto) 0.1 Baso # (Auto) 0.0 Immature Gran # (Auto) 0.39 H Absolute Nucleated RBC 0.27 H Immature Gran % 6 H Nucleated RBC % 4 H Puncture Site Right Brachial ABG pH 7.40 ABG pCO2 36 ABG pO2 92 D ABG HCO3 22 ABG O2 Saturation 97 ABG Base Excess -2 FiO2 97 Sodium 142 Potassium 4.2 Chloride 111 H Carbon Dioxide 22.5 Anion Gap 9 BUN 44 H Creatinine 1.3 Estim Creat Clear Calc 67.4 eGFR 49 L BUN/Creatinine Ratio 34 H Glucose 145 H D Calculated Osmolality 297 H Calcium 7.2 L Corrected Calcium 8.6 Phosphorus 3.4 Magnesium 2.3 Total Bilirubin < 0.2 L AST 33 ALT 26 Alkaline Phosphatase 66 D Total Protein 3.7 L Albumin 2.3 L D Globulin 1.4 L Albumin/Globulin Ratio 1.6 Impressions Impression: # Perforated anastomotic site of gastrojejunostomy requiring repair # Extubated and on Ventimask # Slight drop in hemoglobin hematocrit will monitor closely ABG Interpretation ABG results: 11/22/24 11/23/24 11/23/24 17:58 02:09 04:07 ABG pH 7.25 L 7.22 L 7.26 L ABG pCO2 22 L 28 L 24 L ABG pO2 102 69 L D 94 D ABG HCO3 9 L* 12 L 11 L ABG O2 Saturation 97 89 L 95 ABG Base Excess -16 L -15 L -15 L 11/23/24 11/24/24 11/25/24 06:27 05:01 04:01 ABG pH 7.15 L* D 7.42 D 7.40 ABG pCO2 35 D 33 36 ABG pO2 355 H D 124 H D 92 D ABG HCO3 12 L 21 22 ABG O2 Saturation 100 H 99 H 97 ABG Base Excess -16 L -3 -2 Assessment & Plan A&P Narrative abx are empirical. 5 d of rx ok post operatively (stop it trial) presumptive peritonitis will f/u on sat Time Spent With Patient Time: Total time spent is greater than 50% in coordination of care (as documented) at patient's floor/unit and/or counseling patient: Procedures Arterial Line Size (Gauge): 20
--- NOTE | 2024-11-25 12:14 | PC.SS ---
Update: Patient extubated today. Patient on oxymask, 4L. Speech evaluation is pending.
--- NOTE | 2024-11-25 14:51 | PCS.ST ---
Swallow evaluation ordered. Pt is not ready for PO trials this afternoon d/t recent extubation and mentation. Coughing with ice chips. Will see in AM.
[2024-11-25] MEDS: HYDROmorphone INJ 2 MG/ML VIAL 1 MG IVP ×2 (15:22→21:33)
--- NOTE | 2024-11-25 17:30 | PD.IDPROG ---
Subjective Subjective Interval history: remains on empiric iv abx with overall situation. surgical findings noted. no surgical micro noted. Exam Vital Signs Temp Pulse Resp BP Pulse Ox O2 Del Method O2 Flow Rate 97.0 F 71 16 121/73 99 Room Air 2 11/25/24 12:01 11/25/24 17:15 11/25/24 17:15 11/25/24 15:00 11/25/24 17:15 11/22/24 18:00 11/25/24 17:15 FiO2 21 11/25/24 10:16 Narrative Exam not intubated, arousable but lethargic. abd tender but actually benign. Objective - Internal Medicine Labs 11/25/24 05:00 11/25/24 05:27 Labs: Laboratory Results - last 24 hr 11/25/24 11/25/24 11/25/24 04:01 05:00 05:27 WBC 6.9 RBC 2.34 L Hgb 7.5 L Hct 22.9 L MCV 98 MCH 32.1 MCHC 32.8 RDW Std Deviation 49.1 H Plt Count 82 L D Neut % (Auto) 76 Lymph % (Auto) 10 [place] % (Auto) 7 Eos % (Auto) 1 Baso % (Auto) 0 Neut # (Auto) 5.3 Lymph # (Auto) 0.7 L [place] # (Auto) 0.5 Eos # (Auto) 0.1 Baso # (Auto) 0.0 Immature Gran # (Auto) 0.39 H Absolute Nucleated RBC 0.27 H Immature Gran % 6 H Nucleated RBC % 4 H Puncture Site Right Brachial ABG pH 7.40 ABG pCO2 36 ABG pO2 92 D ABG HCO3 22 ABG O2 Saturation 97 ABG Base Excess -2 FiO2 97 Sodium 142 Potassium 4.2 Chloride 111 H Carbon Dioxide 22.5 Anion Gap 9 BUN 44 H Creatinine 1.3 Estim Creat Clear Calc 67.4 eGFR 49 L BUN/Creatinine Ratio 34 H Glucose 145 H D Calculated Osmolality 297 H Calcium 7.2 L Corrected Calcium 8.6 Phosphorus 3.4 Magnesium 2.3 Total Bilirubin < 0.2 L AST 33 ALT 26 Alkaline Phosphatase 66 D Total Protein 3.7 L Albumin 2.3 L D Globulin 1.4 L Albumin/Globulin Ratio 1.6 ABG Interpretation ABG results: 11/22/24 11/23/24 11/23/24 17:58 02:09 04:07 ABG pH 7.25 L 7.22 L 7.26 L ABG pCO2 22 L 28 L 24 L ABG pO2 102 69 L D 94 D ABG HCO3 9 L* 12 L 11 L ABG O2 Saturation 97 89 L 95 ABG Base Excess -16 L -15 L -15 L 11/23/24 11/24/24 11/25/24 06:27 05:01 04:01 ABG pH 7.15 L* D 7.42 D 7.40 ABG pCO2 35 D 33 36 ABG pO2 355 H D 124 H D 92 D ABG HCO3 12 L 21 22 ABG O2 Saturation 100 H 99 H 97 ABG Base Excess -16 L -3 -2 Assessment & Plan A&P Narrative abx are empirical. 5 d of rx ok post operatively (stop it trial) presumptive peritonitis will f/u on Saturday as I will be away on saturday, ok to stop rx 5d after x lap given study data and repeat imaging if worsens. Time Spent With Patient Time: Total time spent is greater than 50% in coordination of care (as documented) at patient's floor/unit and/or counseling patient:
--- NOTE | 2024-11-25 18:16 | ESPR_ITS ---
Documentation for date of: 11/25/24 Subjective Subjective Interval history: Patient was seen and examined at the bedside in ICU. No acute overnight events. Patient has successfully passed SBT today and was extubated around noon. She was placed on 4 L NC and was saturating 95%. General surgery has replaced wound VAC today. Her LO drain is 360 cc in the last 24 hours. Patient continues to be very lethargic and weak, were attempted to mobilize patient and sit her in the bed however she was not able to stand up. All sedation was discontinued as well as pressors. Plan is to insert PICC line on Saturday and start feeding if patient is unable to tolerate oral feeds by that time. Exam Vital Signs Temp Pulse Resp BP Pulse Ox O2 Del Method O2 Flow Rate 98.1 F 69 13 114/70 98 Room Air 2 11/25/24 16:00 11/25/24 18:00 11/25/24 18:00 11/25/24 18:00 11/25/24 18:00 11/22/24 18:00 11/25/24 17:15 FiO2 21 11/25/24 10:16 Narrative Exam Gen: Well-developed and well-nourished obese female. HEENT: NCAT, PERRLA, EOMI, MMM, anicteric conjunctivae. CVS: normal S1 and S2. Regular tachycardia. No M/R/G. Resp: Decreased breath sounds B/L. No rhonchi, rales, crackles or wheezing. Abd: soft, mildly distended, s/p laparoscopy with midline abdominal scar, appears clean, wound VAC and LO drain in place. Drain is in place. BS+ in all 4 quadrants. MSK: Nonpitting edema BLE and BUE. Multiple ecchymosis dorsal surface BUE. Neuro: Limited exam due to mental status. Objective Labs 11/26/24 04:20 11/25/24 05:27 Labs: Laboratory Results - last 24 hr 11/25/24 11/25/24 11/25/24 04:01 05:00 05:27 WBC 6.9 RBC 2.34 L Hgb 7.5 L Hct 22.9 L MCV 98 MCH 32.1 MCHC 32.8 RDW Std Deviation 49.1 H Plt Count 82 L D Neut % (Auto) 76 Lymph % (Auto) 10 [place] % (Auto) 7 Eos % (Auto) 1 Baso % (Auto) 0 Neut # (Auto) 5.3 Lymph # (Auto) 0.[address] [place] # (Auto) 0.5 Eos # (Auto) 0.1 Baso # (Auto) 0.0 Immature Gran # (Auto) 0.39 H Absolute Nucleated RBC 0.27 H Immature Gran % 6 H Nucleated RBC % 4 H Puncture Site Right Brachial ABG pH 7.40 ABG pCO2 36 ABG pO2 92 D ABG HCO3 22 ABG O2 Saturation 97 ABG Base Excess -2 FiO2 97 Sodium 142 Potassium 4.2 Chloride 111 H Carbon Dioxide 22.5 Anion Gap 9 BUN 44 H Creatinine 1.3 Estim Creat Clear Calc 67.4 eGFR 49 L BUN/Creatinine Ratio 34 H Glucose 145 H D Calculated Osmolality 297 H Calcium 7.2 L Corrected Calcium 8.6 Phosphorus 3.4 Magnesium 2.3 Total Bilirubin < 0.2 L AST 33 ALT 26 Alkaline Phosphatase 66 D Total Protein 3.7 L Albumin 2.3 L D Globulin 1.4 L Albumin/Globulin Ratio 1.6 ABG Interpretation ABG results: 11/22/24 11/23/24 11/23/24 17:58 02:09 04:07 ABG pH 7.25 L 7.22 L 7.26 L ABG pCO2 22 L 28 L 24 L ABG pO2 102 69 L D 94 D ABG HCO3 9 L* 12 L 11 L ABG O2 Saturation 97 89 L 95 ABG Base Excess -16 L -15 L -15 L 11/23/24 11/24/24 11/25/24 06:27 05:01 04:01 ABG pH 7.15 L* D 7.42 D 7.40 ABG pCO2 35 D 33 36 ABG pO2 355 H D 124 H D 92 D ABG HCO3 12 L 21 22 ABG O2 Saturation 100 H 99 H 97 ABG Base Excess -16 L -3 -2 Quality Measures Quality Measures VTE therapy (Heparin) Assessment & Plan Assessment Current Active Medications: Generic Name Dose Route Start Last Admin Trade Name Freq PRN Reason Stop Dose Admin Acetaminophen 650 mg 11/22/24 00:45 Acetaminophen 325 Mg Tablet PO 12/22/24 00:44 Q6H PRN Fever >100.3 or pain Protocol Al Hydrox/Mg Hydrox/Simethicone 30 ml 11/22/24 00:53 Mg Hyd/Al Hyd/Sandie (Maalox Reg) Susp 30 Ml Udc PO 12/22/24 00:52 Q4HR PRN UPSET STOMACH/INDIGESTION Albuterol/Ipratropium 3 ml 11/22/24 00:45 11/23/24 02:09 Albuterol/Ipratropium (Duoneb) Rt Mar[place]uy 3 Ml Nebu INH 12/22/24 00:44 3 ml Q2HR PRN Administration SHORTNESS OF BREATH OR WHEEZE Ambien Cr 12.5 Mg 0 ea 11/22/24 21:00 11/24/24 21:21 Tablet PO 12/22/24 20:59 Not Given HS ZAK Heparin Sodium (Porcine) 7,500 unit 11/24/24 22:00 11/25/24 14:37 Heparin Sod Inj 5000 Unit/Ml Vial SC 12/08/24 21:59 7,500 unit Q8HR ZAK Administration Hydromorphone HCl 1 mg 11/25/24 15:15 11/25/24 15:22 Hydromorphone Inj 2 Mg/Ml Vial IVP 11/30/24 15:14 1 mg Q4HR PRN Administration PAIN SCALE 7-10(SEVERE) Protocol Norepinephrine Bitartrate 16 mg in 250 mls @ 4.571 mls/hr 11/22/24 02:54 11/24/24 21:40 Levophed In Ns 16mg/250ml IV 12/22/24 02:53 0 mcg/kg/min .Q24H PRN 0 mls/hr PER PROTOCOL Titration Protocol 0.05 MCG/KG/MIN Ceftriaxone Sodium 2 gm/ 50 mls @ 100 mls/hr 11/22/24 11:00 11/25/24 09:16 Sodium Chloride IV 11/29/24 10:59 100 mls/hr QDAY ZAK Administration Metronidazole 500 mg in 100 mls @ 200 mls/hr 11/22/24 10:56 11/25/24 14:39 Flagyl 500 Mg Iv IV 11/29/24 10:55 200 mls/hr Q8HR ZAK Administration Micafungin Sodium 100 mg/ 100 mls @ 100 mls/hr 11/23/24 21:00 11/24/24 21:21 Sodium Chloride IV 12/23/24 20:59 100 mls/hr DAILY@2100 ZAK Administration Fentanyl Citrate 2,500 mcg in 250 mls @ 2.5 mls/hr 11/24/24 15:06 11/25/24 08:00 Sublimaze Inj 2,500 Mcg/250 Ml Bag IV 11/28/24 04:49 0 mcg/hr .Q24H PRN 0 mls/hr PER PROTOCOL Titration Protocol 25 MCG/HR Dexmedetomidine/Sodium Chloride 200 mcg in 50 mls @ 6.135 mls/hr 11/25/24 10:55 11/25/24 17:00 Precedex Ivpb IV 12/24/24 09:48 0.5 mcg/kg/hr .Q8H9M PRN 15.338 mls/hr Per PROTOCOL Titration Protocol 0.2 MCG/KG/HR Propofol 1,000 mg in 100 mls @ 2.926 mls/hr 11/25/24 10:56 Diprivan Ivpb IV 12/23/24 04:48 .Q24H PRN PER PROTOCOL Protocol 5 MCG/KG/MIN Levothyroxine Sodium 125 mcg 11/22/24 06:00 11/25/24 07:16 Levothyroxine Sodium 125 Mcg Tablet PO 12/22/24 05:59 Not Given ACBR ZAK Methylprednisolone Sodium Succinate 4 mg 11/25/24 09:00 11/25/24 08:45 Methylprednisolone Sod Succ 40 Mg Vial IVP 12/02/24 08:59 4 mg QDAY ZAK Administration Protocol Ondansetron HCl 4 mg 11/22/24 00:51 11/22/24 12:58 Ondansetron Inj 2 Mg/Ml Inj 2 Ml IV 12/22/24 00:50 4 mg Q6H PRN Administration NAUSEA OR VOMITING Protocol Pantoprazole Sodium 40 mg 11/24/24 09:00 11/25/24 08:45 Pantoprazole Inj 40 Mg Vial IV 12/24/24 08:59 40 mg BID ZAK Administration Plan Ms. 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 Neurological #Sedation Patient is on fentanyl and precedex drips, with RASS goal of -2 Propofol has been weaned off 11/24 - Will plan for sedation holiday on 11/25 with possible SBT Cardiology #Shock. Concern for septic shock with suspected sources likely GI vs Pneumonia recently treated with azithromycin for 5 days starting on 11/16/2024. History and PE notable for profuse watery diarrhea and severe abdominal tenderness. Alternative shock etiologies includes cardiogenic, distributive (non-septic), obstructive, hypovolemic. Plan: -Levophed Gtt and Vasopressin with MAP goal >65. -continue antibiotics as below. -Titrate pressors as tolerated. -On 11/25, vasopressin was stopped and levophed reduced to rate of 0.02 mcg/kg/min. #Hx of hypertension. Home medication lisinopril 20 Mg p.o. daily. Patient currently hypotensive. Plan: ? Home medication on hold given hypotensive blood pressure and current vasopressor requirement. Pulmonary #?Pneumonia. Patient was recently diagnosed with pneumonia, treated with azithromycin for 5 days starting on 11/16/2024. Chest x-ray on admission showed early pneumonia right upper lobe. New onset pneumonia VS radiologic findings of previously treated pneumonia. Lactic Acid: 3.2, Procalcitonin 19.01. On admission was started on vancomycin, Zosyn IV and fidaxomicin. Plan: -continue on ceftriaxone, metronidazole, IV vancomycin. -Blood cultures are negative preliminary. Gastrointestinal #Perforated gastrojejunostomy s/p repair, Gerson patch, washout, drain placement. Patient presented with intractable watery diarrhea for the past week. No blood no mucus. Recent antibiotic use and also recent travel to [place] where she was eating local food. Patient chronically on prednisone and monoclonal antibody upadacitinib for RA. On exam she has generalized abdominal pain tender to palpation in all quadrants, soft, mildly distended. History of Lynn-en-Y gastric bypass 20 years ago. CTAP showed pneumoperitoneum, air droplets in the wall of the colon, suspicious for ischemic bowel. General surgeon Dr. Thao was consulted, on 11/23/24 patient underwent repair of perforated gastrojejunostomy, Gerson patch, washout, drain placement without complications. On admission labs showed lactic acid 2.3, LDH 352, WBC 4.9. KUB did not show significant abnormalities. CT angio C/A/P was canceled due to worsening kidney function. In the ED patient received 4L normal saline IVF bolus, azithromycin and ceftriaxone IV x 1, on admission started with vancomycin, Zosyn and fidaxomicin. Plan: -continue on ceftriaxone, metronidazole, IV vancomycin. -continue on micafungin. -Stool studies ordered including calprotectin, Giardia, ova and parasites, H. pylori, norovirus, stool culture, stool for WBCs and C. difficile. -GI Dr. Palacios consulted, Appreciate recommendations. -Infectious disease Dr. Forte, Appreciate recommendations. -general surgery following. Renal/Genitourinary #Acute Kidney Injury, resolved. On admission patient's CR 3.2. From chart review baseline CR between 1?1.2. Most likely prerenal in etiology in the setting of septic shock. #NAGMA, resolved. #Hyperkalemia, resolved. #Hypernatremia, resolved. #Hypocalcemia, resolved. #Hyperphosphatemia, resolved. Patient has history of Lynn en Y Gastric bypass 20 years ago. Since then she has been hypocalcemic and low Vitamin D levels. K 5.3, Ca 6.8, Phos 6.4. Sodium bicarb on admission 18.3. ABG showed pH 7.25, pCO2 22, PaO2 102. Chemistry showed Na 135, bicarb 9, lactic acid 1.3, uric acid 7.1. Calculated osmolarity 292. Urine output has been decreasing, stable after surgery. Sodium bicarb IV was given 1/6 - 1.7, stopped after bicarbonate levels improved. Plan: - IVF support. - monitor with daily labs. - replete electrolytes as necessary. - Continue strict BLAISE. Endocrine #?Adrenal Inssufficiency. Patient noted to be on half-way steroid usage vs autoimmune etiology. History of rheumatoid arthritis and unknown etiology hypothyroidism. Last dose was several days prior. Blood pressure poorly responsive to IVF resusitation. Labs significant for Hyponatremia, Hyperkalemia, hypocalcemia and NAGMA consistent with AI. Plan: - discontinued hydrocortisone 50 mg Q6H. - discontinued home dose prednisone. - Continue pressure support to maintain MAP above 65. - Plan to start IV methylprednisone at same dose as 5mg prednisone qday. #Hx of hypothyroidism. Unknown etiology, . Patient's home medication levothyroxine 125 mcg p.o. daily. Patient's last dose increase was 2 months ago Plan: - resume home levothyroxine. Hematology #Thrombocytopenia. #Coagulopathy. Workup for suspected DIC showed PLT 297, PT 13.3, INR 1.2, PTT 30.4, fibrinogen 860, D-dimer > 3820, LDH 352. Platelets dropped to 82 on 11/25. More likely related to OR procedure completed on 11/23, may also be from vancomycin use. DIC unlikely. No signs of bleeding noted on 11/24. Heparin DVT prophylaxis started on 11/24. Plan: -Will monitor platelet and hemoglobin levels. If platelets continue to drop or if bleeding is noted, stop heparin. -May consider changing antibiotic regimen if thrombocytopenia worsens. #Normocytic anemia. Hemoglobin noted to drop to 8.2 from 10.8, likely related from surgical procedure on 11/23. No signs of active bleeding noted on 11/24. Plan -Monitor with daily CBC. -Transfuse pRBC for hemoglobin < 7.0. Rheumatology #Hx of rheumatoid arthritis. Patient has long history of rheumatoid arthritis, underwent multiple treatments with methotrexate and other DMARDs, currently on prednisone 10 mg and monoclonal antibody upadacitinib for prolonged time. Plan: -upadacitinib on hold. -continue methylprednisolone 4 mg daily. Infectious Disease #Perforated gastrojejunostomy s/p repair. WBCs on admission WNL, lactic acid 2.3, ESR and CRP are elevated but the patient has autoimmune condition. Chronic steroid and monoclonal antibody use. C diff canceled by lab due to sample being firm, c difficile infection less likely. Plan: -continue on ceftriaxone, metronidazole and IV vancomycin. -continue on micafungin. -Stool studies ordered including calprotectin, Giardia, ova and parasites, H. pylori, norovirus, stool culture, stool for WBCs and C. difficile. -Infectious disease Dr. Forte, Appreciate recommendations. -general surgery following. Skin #BUE dorsal ecchymosis. -Possibly related to underlying coagulopathy, will continue to monitor. FEN: NPO, total bowel rest for 1 week. DVT prophylaxis: Heparin 7500 TID, adjusted for patient's BMI. GI prophylaxis: IV pantoprazole 40mg BID. Dispo: Remains in ICU, extubated, off pressors and sedation, possible downgrade tomorrow. CODE STATUS: Full code. Plan of care discussed with attending Dr. Hurd. Сергей Howell MD, PGY 2. Disclaimer: This note was dictated by speech recognition. Minor errors in salesperson flying squad may be present due to voice recognition software. Attending Provider Attestation/Addendum Patient seen and examined with above resident, Сергей Howell MD. I agree with the findings, assessment, and plan of care as documented except for any differences below. The patient continues to improve significantly with weaning off of vasopressor requirements. Patient transitioned to Precedex this morning and doing well with sedation holiday off of propofol and fentanyl. Pain medication initiated by residents and adequately controlling. Wound VAC output has been minimal. Urinary output has been excellent with return of renal function towards baseline. Electrolyte replacement to ensure potassium and magnesium remain in adequate range for GI motility. NG tube will stay in place and got will Complete rest. I would suggest holding off on initiation of TPN at this point as we are only on 3 days since her last meal. Patient following commands and was able to be weaned off of mechanical ventilation with successful extubation to nasal cannula. Patient is not a candidate for noninvasive positive pressure ventilation given upper GI intervention and if she should fail will require reintubation. Patient will be mobilized today with plan to sit at the edge of the bed after adequate pain control was achieved. Promote use of incentive spirometer activity throughout the day to limit atelectasis given she has morbid obesity and likely component of OHS. Patient remains on low-dose prednisone and no longer requiring stress dose steroids with continued hemodynamic stability. Patient's Rinvoq will be continued to be on hold as we do not have it on formulary and she needs to recover from the acute GI perforation. Patient remains on PPI twice daily given peptic ulcer disease. Transition medications to IV as able. Plan for PICC line placement for TPN likely on Saturday. Continue on adequate coverage for typical organisms seen from peritonitis from upper GI perforation. Patient's mother and at bedside and were updated throughout the day. Total critical care time: I personally spent 45 minutes for review of physiologic parameters, directing plan of care throughout the day, coordination of care with other subspecialties, and counseling patient and family at bedside. This is exclusive of time spent teaching housestaff or performing any separate billable procedures. Patient continues to require critical care services for septic shock secondary to upper GI viscus perforation from peptic ulcer disease with acute respiratory failure secondary to shock. Patient continues to be at high risk for increased morbidity and mortality warranting ongoing care and management only available in the intensive care unit.
[2024-11-25] MEDS: DEXMEDETOMIDINE 200 MCG IVPB 200 MCG/50 ML BOTTLE 15.338 MCG IV ×2 (19:22→23:10)
[2024-11-25] MEDS: MICAFUNGIN SODIUM INJ 100 MG in SODIUM CHLORIDE 0.9% 100 ML IV (21:23)
[2024-11-26] VITALS (20 sets, daily range): BP systolic 117–164; BP diastolic 69–123; PULSE 68–135; RESP 12–27; TEMP 36–36.8; O2SAT 93–100; BMI 47.1
[2024-11-26] MEDS: HYDROmorphone INJ 2 MG/ML VIAL 1 MG IVP ×6 (01:05→23:26)
[2024-11-26] MEDS: DEXMEDETOMIDINE 200 MCG IVPB 200 MCG/50 ML BOTTLE 15.338 MCG IV (02:28)
[2024-11-26] MEDS: DEXMEDETOMIDINE 200 MCG IVPB 200 MCG/50 ML BOTTLE 21.473 MCG IV ×2 (05:26→07:50)
[2024-11-26] MEDS: HEPARIN SOD INJ 5000 UNIT/ML VIAL 7500 UNIT SC ×3 (05:27→22:42)
[2024-11-26] MEDS: metroNIDAZOLE/NS 500 MG IVPB 500 MG/100 ML BAG 200 MG IV ×3 (05:27→22:16)
[2024-11-26 05:56] LABS: Basophils # (Auto) 0.1 Thou/mm3 (0.0-0.2); Basophils % (Auto) 1 % (0-2.5); Eosinophils % (Auto) 0 % (0-10); Hematocrit 25.3 % (36.0-46.0); Immature Granulocytes % (Auto) 7 % (0-0); Immature Granulocytes Auto 0.77 Thou/mm3 (0.00-0.00); Lymphocytes # (Auto) 0.5 Thou/mm3 (1.0-4.8); Lymphocytes % (Auto) 4 % (10-50); Mean Corpuscular Hemoglobin 31.8 pg (25.0-35.0); Mean Corpuscular Volume 99 fL (80-100); Monocytes # (Auto) 0.7 Thou/mm3 (0.0-0.8); Monocytes % (Auto) 6 % (0-12); Neutrophils # (Auto) 9.6 Thou/mm3 (1.8-7.7); Neutrophils % (Auto) 82 % (37-80); Nucleated Red Blood Cell # 0.27 Thou/mm3 (0.00-0.00); Nucleated Red Blood Cell % 2 /100 WBC (0); Platelet Count 118 Thou/mm3 (140-440); RDW Standard Deviation 49.8 fL (36.4-46.3); Red Blood Count 2.55 Miln/mm3 (4.00-5.20); White Blood Count 11.6 Thou/mm3 (3.6-11.0)
--- NOTE | 2024-11-26 06:00 | PC.NURSE ---
PER MARINA ALEJO TO GIVE LEVOTHYROXINE VIA NGT
[2024-11-26 06:10] LABS: Hemoglobin 8.1 g/dL (12.0-16.0)
[2024-11-26] MEDS: LEVOTHYROXINE SODIUM 125 MCG TABLET PO (06:16)
--- NOTE | 2024-11-26 06:25 | PC.NURSE ---
UPON CHANGING PATIENT, RN NOTICED THAT SUCTION BULB FOR LO DRAIN HAD COME OFF. REATTACHED BULB. SUCTION REINFORCED.NO DRAINAGE FROM LO SINCE REATTACHMENT.
[2024-11-26 06:27] LABS: Helicobacter pylori Ag, Stool* NOT DETECTED (NOT DETECTED)
[2024-11-26 06:28] LABS: Alanine Aminotransferase 27 U/L (10-49); Albumin, Serum 2.8 gm/dL (3.5-5.0); Albumin/Globulin Ratio 1.6 (1.2-2.2); Alkaline Phosphatase 68 U/L (46-116); Anion Gap 10 (7-16); Aspartate Amino Transferase 33 U/L (0-34); BUN/Creatinine Ratio 37 Ratio (12-20); Bilirubin,Total < 0.2 mg/dL (0.3-1.2); Blood Urea Nitrogen 41 mg/dL (9-23); Calcium 7.7 mg/dL (8.3-10.6); Calcium (Corrected) 8.7 mg/dL (8.5-10.1); Chloride 111 mMol/L (98-107); Creatinine (Component) 1.1 mg/dL (0.6-1.3); Estimated Creatinine Clearance 78.9 mL/min (>60); Globulin 1.8 gm/dL (2.3-3.5); Glucose 149 mg/dL (74-106); Osmolality,Calculated 299 (275-295); Potassium 4.6 mMol/L (3.4-5.1); Sodium 144 mMol/L (136-145); Total Protein 4.6 gm/dL (5.7-8.2); eGFR 60 See Note
[2024-11-26 06:29] LABS: Legionella Ag, EIA, Urine* NOT DETECTED
[2024-11-26] MEDS: cefTRIAXone 2 GM in SODIUM CHLORIDE 0.9% (P) 50 ML IV (08:54)
[2024-11-26] MEDS: PANTOPRAZOLE INJ 40 MG VIAL IV ×2 (08:55→20:26)
--- NOTE | 2024-11-26 09:53 | PCS.ST ---
Swallow Evaluation completed. See report for details. No ready for PO diet. ST will see daily for PO trials for diet readiness.
[2024-11-26] MEDS: Magnesium Sulfate 2 GM Ivpb 2 GM/50 ML BAG IV (10:38)
[2024-11-26 10:51] LABS: Magnesium 2.3 mg/dL (1.6-2.6); Phosphorous 3.4 mg/dL (2.4-5.1)
--- NOTE | 2024-11-26 12:41 | PC.WOUND ---
Addendum entered by Khadra Back RN 11/26/24 16:18: [facility] has authroized unit for release. Dr. Thao and Carol charge attendant aware unit is available when medically cleared for discharge. Addendum entered by Khadra Back RN 11/26/24 15:19: [facility] home wound vac available in wound hospital security officer Original Note: Initiated process for home wound vac through [facility]. Rental order number [id number]. Faxed requested documents with return receipt. (face sheet, H&P, consults, op notes, labs, imaging, WCC and RD notes). Dr. Thao aware of E-signature needed. [facility] contact phone [facility] fax 1) to check order status please call [facility] and follow prompts. 2) Once unit is authorized for release, ask [facility] to fax proof of delivery. Have pt and nurse sign than fax back to [facility] . Nursing to teach and review basic wound vac functions and send kit home with patient.
--- NOTE | 2024-11-26 13:01 | PD.SURPROG ---
Documentation for date of: 11/26/24 Subjective Subjective Brief History: 54F with rheumatoid arthritis on chronic prednisone, obesity presenting yesterday with diarrhea and abdominal pain. Pt had recently traveled to [place] and also took a z-natalie which completed 11/20, and had watery diarrhea. Today pt underwent CT AP with findings of pneumoperitoneum and droplets adjacent to colon, she is on two pressors which are being weaned PMH: RA, hypothyroidism PSHx: Gastric bypass surgery, appendectomy, abdominoplasty Meds: on prednisone for years, no antiplt or anticoagulation Allergies: Bactrim Social hx: Nonsmoker Narrative: Extubated yesterday, having ongoing abdominal pain, has not yet passed gas or had a BM. In previous 24hours LO had >500cc output, so far 170cc today, pt remaining afebrile, WBC 11 Exam Vital Signs Temp Pulse Resp BP Pulse Ox O2 Del Method O2 Flow Rate 97.1 F 99 12 158/96 H 96 Room Air 1 11/26/24 08:00 11/26/24 11:00 11/26/24 11:00 11/26/24 11:00 11/26/24 11:00 11/22/24 18:00 11/26/24 06:29 FiO2 21 11/25/24 10:16 Constitutional Constitutional: no acute distress Routine Respiratory Exam Respiratory: Present no resp distress Routine Abdominal Exam Abdominal: Present soft, wound (midline wound with vac in place with no output) and drain (LO with serosanguinous output); Absent tenderness or distended Results Results: Laboratory Laboratory results: results reviewed Assessment & Plan Plan 54F with RA chronically on prednisone, remote history of gastric bypass who initially presented with diarrhea, with subsequent findings of pneumoperitoneum on CT now s/p emergent laparotomy with repair of perforated gastrojejunostomy, washout and drain placement 11/23, gradually recovering Initiate TPN Trickle feeds at 5cc/hr, do NOT advance until LO output decreases and pt has return of bowel function Continue abx Adding IV tylenol and lidocaine patch for pain control Physical therapy Procedures Procedures Repair of perforated gastrojejunostomy, Gerson patch, washout, drain placement
--- NOTE | 2024-11-26 13:17 | ESPR_ITS ---
<Statement entered by Сергей Howell MD - 11/27/24 07:44> Senior Resident Attestation: I supervised/discussed management plan with internal combustion engineer physician Dr. Salazar, and was involved in the care of this patient. I personally saw and examined the patient and discussed the assessment and plan with the entire medicine team, including my attending. I agree with the assessment and plan as documented. Patient's care was discussed with attending physician, Dr. Hurd. Сергей Howell MD PGY-2. Documentation for date of: 11/26/24 Subjective Subjective Interval history: 11/25: Patient was seen and examined at the bedside in ICU. No acute overnight events. Patient has successfully passed SBT today and was extubated around noon. She was placed on 4 L NC and was saturating 95%. General surgery has replaced wound VAC today. Her LO drain is 360 cc in the last 24 hours. Patient continues to be very lethargic and weak, were attempted to mobilize patient and sit her in the bed however she was not able to stand up. All sedation was discontinued as well as pressors. Plan is to insert PICC line on Saturday and start feeding if patient is unable to tolerate oral feeds by that time. 11/26: Patient seen and examined at bedside. No acute events overnight. Patient is postop day 3. On physical exam wound VAC is in place with approximately 50 cc drainage noticed in LO tube. No active bleeding or drainage noticed from surgical site. Patient states of pain 5/10, alert and oriented, able to follow commands. Speech and PT were referred. With asstance, patient was able to get up from edge of bed for few minutes but still remains high fall risk. Keep NPO status as she did not pass swallow eval. Initiated 5cc/hr trickle feeds monitoring BM. Continue pantoprazole 40 mg BID for underlying PUD. Sputum cultures were postivie for Pseudomonas. Start patient on Zosyn 4.5 g every 8 hours for 7 days (until 08/03). Per Dr. Thao, additional pain control with IV acetaminophen 1g q6hrs. Case was discussed with primary care team and patient was downgraded to [facility] for continuation of care. Exam Vital Signs Temp Pulse Resp BP Pulse Ox O2 Del Method O2 Flow Rate 97.1 F 99 12 158/96 H 96 Room Air 1 11/26/24 08:00 11/26/24 11:00 11/26/24 11:00 11/26/24 11:00 11/26/24 11:00 11/22/24 18:00 11/26/24 06:29 FiO2 21 11/25/24 10:16 Narrative Exam Gen: Well-developed and well-nourished obese female. HEENT: NCAT, PERRLA, EOMI, MMM, anicteric conjunctivae. CVS: normal S1 and S2. Regular tachycardia. No M/R/G. Resp: Decreased breath sounds B/L. No rhonchi, rales, crackles or wheezing. Abd: soft, mildly distended, s/p laparoscopy with midline abdominal scar, appears clean, wound VAC and LO drain in place. Drain is in place. BS+ in all 4 quadrants. MSK: Nonpitting edema BLE and BUE. Multiple ecchymosis dorsal surface BUE. Neuro: grossly intact Objective Labs 11/27/24 08:54 11/27/24 08:54 Labs: Laboratory Results - last 24 hr 11/22/24 11/22/24 11/26/24 02:00 09:10 04:20 WBC 11.6 H D RBC 2.55 L Hgb 8.1 L Hct 25.3 L MCV 99 MCH 31.8 MCHC 32.0 RDW Std Deviation 49.8 H Plt Count 118 L D Neut % (Auto) 82 H Lymph % (Auto) 4 L [place] % (Auto) 6 Eos % (Auto) 0 Baso % (Auto) 1 Neut # (Auto) 9.6 H Lymph # (Auto) 0.5 L [place] # (Auto) 0.7 Eos # (Auto) 0.0 Baso # (Auto) 0.1 Immature Gran # (Auto) 0.77 H Absolute Nucleated RBC 0.27 H Immature Gran % 7 H Nucleated RBC % 2 H Sodium 144 Potassium 4.6 Chloride 111 H Carbon Dioxide 23.0 Anion Gap 10 BUN 41 H Creatinine 1.1 Estim Creat Clear Calc 78.9 eGFR 60 BUN/Creatinine Ratio 37 H Glucose 149 H Calculated Osmolality 299 H Calcium 7.7 L Corrected Calcium 8.7 Phosphorus 3.4 Magnesium 2.3 Total Bilirubin < 0.2 L AST 33 ALT 27 Alkaline Phosphatase 68 Total Protein 4.6 L Albumin 2.8 L D Globulin 1.8 L Albumin/Globulin Ratio 1.6 Stool H. pylori Ag NOT DETECTED Stl O & P Trichrome St Urine Legionella Ag NOT DETECTED O & P Concentrate Exam ABG Interpretation ABG results: 11/22/24 11/23/24 11/23/24 17:58 02:09 04:07 ABG pH 7.25 L 7.22 L 7.26 L ABG pCO2 22 L 28 L 24 L ABG pO2 102 69 L D 94 D ABG HCO3 9 L* 12 L 11 L ABG O2 Saturation 97 89 L 95 ABG Base Excess -16 L -15 L -15 L 11/23/24 11/24/24 11/25/24 06:27 05:01 04:01 ABG pH 7.15 L* D 7.42 D 7.40 ABG pCO2 35 D 33 36 ABG pO2 355 H D 124 H D 92 D ABG HCO3 12 L 21 22 ABG O2 Saturation 100 H 99 H 97 ABG Base Excess -16 L -3 -2 Quality Measures Quality Measures VTE therapy (Heparin) Assessment & Plan Assessment Current Active Medications: Generic Name Dose Route Start Last Admin Trade Name Freq PRN Reason Stop Dose Admin Al Hydrox/Mg Hydrox/Simethicone 30 ml 11/22/24 00:53 Mg Hyd/Al Hyd/Sandie (Maalox Reg) Susp 30 Ml Udc PO 12/22/24 00:52 Q4HR PRN UPSET STOMACH/INDIGESTION Albuterol/Ipratropium 3 ml 11/22/24 00:45 11/23/24 02:09 Albuterol/Ipratropium (Duoneb) Rt Marichuy 3 Ml Nebu INH 12/22/24 00:44 3 ml Q2HR PRN Administration SHORTNESS OF BREATH OR WHEEZE Ambien Cr 12.5 Mg 0 ea 11/22/24 21:00 11/25/24 21:17 Tablet PO 12/22/24 20:59 Not Given HS ZAK Heparin Sodium (Porcine) 7,500 unit 11/24/24 22:00 11/26/24 13:12 Heparin Sod Inj 5000 Unit/Ml Vial SC 12/08/24 21:59 7,500 unit Q8HR ZAK Administration Hydromorphone HCl 1 mg 11/25/24 15:15 11/26/24 13:11 Hydromorphone Inj 2 Mg/Ml Vial IVP 11/30/24 15:14 1 mg Q4HR PRN Administration PAIN SCALE 7-10(SEVERE) Protocol Metronidazole 500 mg in 100 mls @ 200 mls/hr 11/22/24 10:56 11/26/24 13:12 Flagyl 500 Mg Iv IV 11/29/24 10:55 200 mls/hr Q8HR ZAK Administration Micafungin Sodium 100 mg/ 100 mls @ 100 mls/hr 11/23/24 21:00 11/25/24 21:23 Sodium Chloride IV 12/23/24 20:59 100 mls/hr DAILY@2100 ZAK Administration Ceftriaxone Sodium 2 gm/ 50 mls @ 100 mls/hr 11/27/24 09:00 Sodium Chloride IV 11/29/24 10:59 QDAY ZAK Acetaminophen 1,000 mg in 100 mls @ 250 mls/hr 11/26/24 13:00 Ofirmev Inj IV 12/01/24 06:23 Q6HR ZAK Levothyroxine Sodium 125 mcg 11/22/24 06:00 11/26/24 06:16 Levothyroxine Sodium 125 Mcg Tablet PO 12/22/24 05:59 125 mcg ACBR ZAK Administration Lidocaine 1 patch 11/26/24 13:00 Lidocaine 5% 1 Patch TOP 12/26/24 12:59 UD PRN PAIN Methylprednisolone Sodium Succinate 4 mg 11/25/24 09:00 11/26/24 08:53 Methylprednisolone Sod Succ 40 Mg Vial IVP 12/02/24 08:59 4 mg QDAY ZAK Administration Protocol Ondansetron HCl 4 mg 11/22/24 00:51 11/22/24 12:58 Ondansetron Inj 2 Mg/Ml Inj 2 Ml IV 12/22/24 00:50 4 mg Q6H PRN Administration NAUSEA OR VOMITING Protocol Pantoprazole Sodium 40 mg 11/24/24 09:00 11/26/24 08:55 Pantoprazole Inj 40 Mg Vial IV 12/24/24 08:59 40 mg BID ZAK Administration Plan Ms. 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 Neurological #s/p Sedation #Extubated Patient is no long on sedatives. Successfully extubated on 11/25. Cardiology #Shock-resolved 2/ #Pseudomonas PNA #GI perforation-resolved Concern for septic shock with suspected sources likely GI and Pseudomonas pneumonia. Recently treated with azithromycin for 5 days starting on 11/16/2024. History and PE notable for profuse watery diarrhea and severe abdominal tenderness. Alternative shock etiologies includes cardiogenic, distributive (non-septic), obstructive, hypovolemic. Plan: -start zosyn 4.5 g every 8 hours for 7 days (until 08/03) -continue other antibiotics as below. #Hx of hypertension. Home medication lisinopril 20 Mg p.o. daily. No longer hypotensiive but will continue to hold antihypertensives due to s/p surgery and underling PNA infection. Plan: ? Home medication on hold Pulmonary #Psudomonas Pneumonia. Patient was recently diagnosed with pneumonia, treated with azithromycin for 5 days starting on 11/16/2024. Chest x-ray on admission showed early pneumonia right upper lobe. New onset pneumonia VS radiologic findings of previously treated pneumonia. Lactic Acid: 3.2, Procalcitonin 19.01. On admission was started on vancomycin, Zosyn IV and fidaxomicin. Plan: -zosyn zosyn 4.5 g every 8 hours for 7 days (until 08/03) Gastrointestinal #Perforated gastrojejunostomy s/p repair, Gerson patch, washout, drain placement. Patient presented with intractable watery diarrhea for the past week. No blood no mucus. Recent antibiotic use and also recent travel to [place] where she was eating local food. Patient chronically on prednisone and monoclonal antibody upadacitinib for RA. On exam she has generalized abdominal pain tender to palpation in all quadrants, soft, mildly distended. History of Lynn-en-Y gastric bypass 20 years ago. CTAP showed pneumoperitoneum, air droplets in the wall of the colon, suspicious for ischemic bowel. General surgeon Dr. Thao was consulted, on 11/23/24 patient underwent repair of perforated gastrojejunostomy, Gerson patch, washout, drain placement without complications. On admission labs showed lactic acid 2.3, LDH 352, WBC 4.9. KUB did not show significant abnormalities. CT angio C/A/P was canceled due to worsening kidney function. In the ED patient received 4L normal saline IVF bolus, azithromycin and ceftriaxone IV x 1, on admission started with vancomycin, Zosyn and fidaxomicin. Plan: -continue on ceftriaxone, metronidazole, IV vancomycin. -continue on micafungin. -start trickel feeds 5cc/hr -plan for oral intake one week from surgery (11/30/23) -Stool studies ordered including calprotectin pending, Giardia pending, ova and parasites negative, H. pylori, norovirus pending, stool culture, stool for WBCs +1 -IV acetaminophen 1000mg q6hr -GI Dr. Palacios consulted, Appreciate recommendations. -Infectious disease Dr. Forte, Appreciate recommendations. -general surgery following. Renal/Genitourinary #Acute Kidney Injury, resolved. On admission patient's CR 3.2. From chart review baseline CR between 1?1.2. Most likely prerenal in etiology in the setting of septic shock. #NAGMA, resolved. #Hyperkalemia, resolved. #Hypernatremia, resolved. #Hypocalcemia, resolved. #Hyperphosphatemia, resolved. Patient has history of Lynn en Y Gastric bypass 20 years ago. Since then she has been hypocalcemic and low Vitamin D levels. K 5.3, Ca 6.8, Phos 6.4. Sodium bicarb on admission 18.3. ABG showed pH 7.25, pCO2 22, PaO2 102. Chemistry showed Na 135, bicarb 9, lactic acid 1.3, uric acid 7.1. Calculated osmolarity 292. Urine output has been decreasing, stable after surgery. Sodium bicarb IV was given 1/6 - 1.7, stopped after bicarbonate levels improved. Plan: - IVF support. - monitor with daily labs. - replete electrolytes as necessary. - Continue strict BLAISE. Endocrine #?Adrenal Inssufficiency. Patient noted to be on fdc steroid usage vs autoimmune etiology. History of rheumatoid arthritis and unknown etiology hypothyroidism. Last dose was several days prior. Blood pressure poorly responsive to IVF resusitation. Labs significant for Hyponatremia, Hyperkalemia, hypocalcemia and NAGMA consistent with AI. Plan: - discontinued hydrocortisone 50 mg Q6H. - discontinued home dose prednisone. - Continue pressure support to maintain MAP above 65. - Plan to start IV methylprednisone at same dose as 5mg prednisone qday. #Hx of hypothyroidism. Unknown etiology, . Patient's home medication levothyroxine 125 mcg p.o. daily. Patient's last dose increase was 2 months ago Plan: - resume home levothyroxine. Hematology #Thrombocytopenia. #Coagulopathy. Workup for suspected DIC showed PLT 297, PT 13.3, INR 1.2, PTT 30.4, fibrinogen 860, D-dimer > 3820, LDH 352. Platelets dropped to 82 on 11/25. More likely related to OR procedure completed on 11/23, may also be from vancomycin use. DIC unlikely. No signs of bleeding noted on 11/24. Heparin DVT prophylaxis started on 11/24. Plan: -Will monitor platelet and hemoglobin levels. If platelets continue to drop or if bleeding is noted, stop heparin. -May consider changing antibiotic regimen if thrombocytopenia worsens. #Normocytic anemia. Hemoglobin noted to drop to 8.2 from 10.8, likely related from surgical procedure on 11/23. No signs of active bleeding noted on 11/24. Plan -Monitor with daily CBC. -Transfuse pRBC for hemoglobin < 7.0. Rheumatology #Hx of rheumatoid arthritis. Patient has long history of rheumatoid arthritis, underwent multiple treatments with methotrexate and other DMARDs, currently on prednisone 10 mg and monoclonal antibody upadacitinib for prolonged time. Plan: -upadacitinib on hold. -continue methylprednisolone 4 mg daily. Infectious Disease #Perforated gastrojejunostomy s/p repair. WBCs on admission WNL, lactic acid 2.3, ESR and CRP are elevated but the patient has autoimmune condition. Chronic steroid and monoclonal antibody use. C diff canceled by lab due to sample being firm, c difficile infection less likely. Plan: -continue on ceftriaxone, metronidazole and IV vancomycin. -continue on micafungin. -Stool studies ordered including calprotectin, Giardia, ova and parasites, H. pylori, norovirus, stool culture, stool for WBCs and C. difficile. -Infectious disease Dr. Forte, Appreciate recommendations. -general surgery following. #Pseudomonas PNA Sputum Gram stain positive for psudomonas on 11/26. Pt not experiencing fever, chest pain, SOB. WBC uptrended today to 11. -zosyn 4.5 g every 8 hours for 7 days (until 08/03) Skin #BUE dorsal ecchymosis. -Possibly related to underlying coagulopathy, will continue to monitor. FEN: NPO, total bowel rest for 1 week. DVT prophylaxis: Heparin 7500 TID, adjusted for patient's BMI. GI prophylaxis: IV pantoprazole 40mg BID. Dispo: down graded to med surg CODE STATUS: Full code. Plan of care discussed with attending Dr. Hurd and senior Dr. Howell. Attending Provider Attestation/Addendum Patient seen and examined with above resident, Zamzam Salazar MD. I agree with the findings, assessment, and plan of care as document except for any differences below. Patient continues to improve postoperatively. Continue on antibiotic course with adjustment to cover Pseudomonas which was found on tracheal aspirate. This is an odd organism specifically for somebody does not have structural lung disease or prolonged requirement for mechanical ventilation during hospitalization. Nonetheless antibiotic coverage will be adequate for both intraperitoneal and intrapulmonary processes. Patient remains hemodynamically stable and mentation continues to improve with discontinuation of Precedex. Patient was mobilized and able to stand at bedside with 3 person assist. Will continue to work with physical therapy as she improves. Wound VAC remains in place with low output. Large LO output concerning for potential leak or fluid mobilization intraperitoneally. Discussed with surgery, agree with trickle feeds for GI stimulation along with optimization of electrolytes and maintaining on TPN in the short-term to allow for adequate healing. Patient's pain adequately controlled with IV regimen, will defer to general surgery for initiation of oral pills for longer acting effect. Patient otherwise ready to be transferred to telemetry rankin for ongoing management. Patient and her mother were updated on plan of care and agreeable at bedside. Total critical care time: I personally spent 35 minutes for review of physiologic parameters, directing plan of care throughout the day, coordination of care with other specialties, and counseling patient and her mother at bedside. This is exclusive of time spent teaching of staff or performing separate billable procedures.
--- NOTE | 2024-11-26 13:23 | PC.SS ---
FORESTRY TECHNICAL OFFICER informed by wound care nurse that patient will require wound vac upon discharge. Wound care nurse has begun process to obtain wound vac.
[2024-11-26] MEDS: ACETAMINOPHEN IVPB 1,000 MG/100 ML VIAL 250 MG IV ×2 (13:50→17:32)
[2024-11-26] MEDS: RINGERS LACTATED 1000 ML 1,000 ML 100 ML IV (14:37)
[2024-11-26] MEDS: RINGERS LACTATED 1000 ML 500 ML 999 ML IV (14:37)
--- NOTE | 2024-11-26 14:44 | PC.SS ---
Update: Patient has been downgraded to Med/Surg.
[2024-11-26] MEDS: SPIRONOLACTONE 25 MG TABLET PO (14:47)
[2024-11-26] MEDS: PIPER/TAZO INJ 4.5 GM in SODIUM CHLORIDE 0.9% (P) 100 ML IV (16:23)
--- NOTE | 2024-11-26 17:14 | PD.RESEVENT ---
Documentation for date of: 11/26/24 Event Note Event Note: Patient was admitted to ICU for septic shock requiring pressor support. Patient found to have bowel perforation, surgically repair of gastrojejunostomy with drain placement on 11/23. Patient was successfully extubated yesterday, weaned off pressors. Currently is followed by surgery, infectious disease, GI. Patient stable enough for downgrade to floors for further medical management. Will assume care of this patient starting tomorrow. Marcus Norman MD PGY?1
[2024-11-26] MEDS: AMINO ACID IV (17:39)
[2024-11-26] MEDS: MULTIVITAMIN IV (17:39)
[2024-11-26] MEDS: FAT EMULSIONS 20% IV 500 ML 32 ML IV (17:39)
[2024-11-26] MEDS: [UNRECOGNIZED DRUG - OTHER] IV (17:39)
[2024-11-26] MEDS: CALCIUM GLUCONATE IV (17:39)
--- NOTE | 2024-11-26 20:05 | PC.NURSE ---
Call place to hospitalist was made aware patients BP 164/101 and HR 116, order to wait 30 minutes and recheck vitals, report results. Orders read back and carried out.
--- NOTE | 2024-11-26 20:07 | PD.IMPROG ---
Documentation for date of: 11/26/24 Subjective Subjective Interval history: Patient evaluated Moved out of the ICU Exam Vital Signs Temp Pulse Resp BP Pulse Ox O2 Del Method O2 Flow Rate 97.2 F 116 H 16 164/101 H 96 Room Air 1 11/26/24 19:57 11/26/24 19:57 11/26/24 19:57 11/26/24 19:57 11/26/24 19:57 11/26/24 19:57 11/26/24 06:29 FiO2 21 11/25/24 10:16 Constitutional Comments: Chronically ill-appearing Routine Abdominal Exam Comments: Drains in place Objective Labs 11/27/24 08:54 11/27/24 08:54 Labs: Laboratory Results - last 24 hr 11/22/24 11/22/24 11/26/24 02:00 09:10 04:20 WBC 11.6 H D RBC 2.55 L Hgb 8.1 L Hct 25.3 L MCV 99 MCH 31.8 MCHC 32.0 RDW Std Deviation 49.8 H Plt Count 118 L D Neut % (Auto) 82 H Lymph % (Auto) 4 L [place] % (Auto) 6 Eos % (Auto) 0 Baso % (Auto) 1 Neut # (Auto) 9.6 H Lymph # (Auto) 0.5 L [place] # (Auto) 0.7 Eos # (Auto) 0.0 Baso # (Auto) 0.1 Immature Gran # (Auto) 0.77 H Absolute Nucleated RBC 0.27 H Immature Gran % 7 H Nucleated RBC % 2 H Sodium 144 Potassium 4.6 Chloride 111 H Carbon Dioxide 23.0 Anion Gap 10 BUN 41 H Creatinine 1.1 Estim Creat Clear Calc 78.9 eGFR 60 BUN/Creatinine Ratio 37 H Glucose 149 H Calculated Osmolality 299 H Calcium 7.7 L Corrected Calcium 8.7 Phosphorus 3.4 Magnesium 2.3 Total Bilirubin < 0.2 L AST 33 ALT 27 Alkaline Phosphatase 68 Total Protein 4.6 L Albumin 2.8 L D Globulin 1.8 L Albumin/Globulin Ratio 1.6 Stool H. pylori Ag NOT DETECTED Stl O & P Trichrome St Urine Legionella Ag NOT DETECTED O & P Concentrate Exam Impressions Impression: # Status post exploratory laparotomy for gastrojejunostomy perforation Continue current plan ABG Interpretation ABG results: 11/22/24 11/23/24 11/23/24 17:58 02:09 04:07 ABG pH 7.25 L 7.22 L 7.26 L ABG pCO2 22 L 28 L 24 L ABG pO2 102 69 L D 94 D ABG HCO3 9 L* 12 L 11 L ABG O2 Saturation 97 89 L 95 ABG Base Excess -16 L -15 L -15 L 11/23/24 11/24/24 11/25/24 06:27 05:01 04:01 ABG pH 7.15 L* D 7.42 D 7.40 ABG pCO2 35 D 33 36 ABG pO2 355 H D 124 H D 92 D ABG HCO3 12 L 21 22 ABG O2 Saturation 100 H 99 H 97 ABG Base Excess -16 L -3 -2 Assessment & Plan A&P Narrative abx are empirical. 5 d of rx ok post operatively (stop it trial) presumptive peritonitis will f/u on Saturday as I will be away on saturday, ok to stop rx 5d after x lap given study data and repeat imaging if worsens. Time Spent With Patient Time: Total time spent is greater than 50% in coordination of care (as documented) at patient's floor/unit and/or counseling patient: Procedures Arterial Line Size (Gauge): 20
[2024-11-26] MEDS: LORazepam 2 MG/ML VIAL 1 MG IVP (20:26)
[2024-11-26] MEDS: MICAFUNGIN SODIUM INJ 100 MG in SODIUM CHLORIDE 0.9% 100 ML IV (22:04)
[2024-11-26] MEDS: PIPER/TAZO INJ 4.5 GM in SODIUM CHLORIDE 0.9% 100 ML IV (23:18)
[2024-11-27] VITALS (12 sets, daily range): BP systolic 138–169; BP diastolic 90–104; PULSE 94–130; RESP 16–94; TEMP 35.6–37.1; O2SAT 90–95; BMI 12.0
[2024-11-27] MEDS: ACETAMINOPHEN IVPB 1,000 MG/100 ML VIAL 250 MG IV ×3 (00:15→17:00)
--- NOTE | 2024-11-27 01:45 | PC.NURSE ---
Patient requesting sleep aid medication, Dr. Tabor advice at bedside swallow evaluation and if patient passes will order melatonin, patient refuses swallow evaluation at this moment, she reports melatonin doesn't do anything for her. She wants swallow evaluation done in the morning when pharmacy is open and she can take her ambien.
[2024-11-27] MEDS: HYDROmorphone INJ 2 MG/ML VIAL 1 MG IVP (04:02)
[2024-11-27] MEDS: ONDANSETRON INJ 2 MG/ML INJ 2 ML 4 MG IV (04:13)
[2024-11-27] MEDS: metroNIDAZOLE/NS 500 MG IVPB 500 MG/100 ML BAG 200 MG IV (05:55)
[2024-11-27] MEDS: PIPER/TAZO INJ 4.5 GM in SODIUM CHLORIDE 0.9% 100 ML IV ×3 (06:02→22:50)
[2024-11-27] MEDS: HEPARIN SOD INJ 5000 UNIT/ML VIAL 7500 UNIT SC (06:03)
[2024-11-27 06:31] LABS: ANCA Screen NEGATIVE (NEGATIVE); Myeloperoxidase Ab <1.0 AI (<1.0)
[2024-11-27 06:32] LABS: Proteinase-3 Ab <1.0 AI (<1.0)
[2024-11-27 06:32] LABS: Calprotectin, Stool* 1990 mcg/g; Giardia Result NOT DETECTED; Norovirus, EIA (Stool)* NOT DETECTED
[2024-11-27] MEDS: RINGERS LACTATED 1000 ML 1,000 ML 100 ML IV (07:46)
--- NOTE | 2024-11-27 08:06 | EKG_ITS ---
[facility] Test Date: 2024-11-27 Pat Name: ANEUDY AUGUSTIN [facility] [employer] P[employer]: SEGUN : 1970 Requested By: Marcus Manuel Order Number: [id number] Reading MD: Marcus Manuel Measurements Intervals [place] Rate: 125 P: 27 [place]: 148 QRS: 34 QRSD: 87 T: 36 QT: 401 QTc: 580 Interpretive Statements SINUS TACHYCARDIA NONSPECIFIC T-WAVE ABNORMALITY ABNORMAL RHYTHM ECG Compared to ECG 11/21/2024 18:59:49 T-wave abnormality now present Sinus rhythm no longer present /store/S0/[id number].pdf
[2024-11-27] MEDS: SPIRONOLACTONE 25 MG TABLET PO ×2 (08:30→21:41)
[2024-11-27] MEDS: PANTOPRAZOLE INJ 40 MG VIAL IV ×2 (08:32→21:40)
--- NOTE | 2024-11-27 08:45 | PCS.ST ---
PO trials completed. See swallow note for details. Recommend Dysphagia 3/mildly thick liquids for now. Consider d/c NGT. ST will continue.
[2024-11-27 09:24] LABS: Basophils % (Auto) 0 % (0-2.5); Eosinophils # (Auto) 0.1 Thou/mm3 (0.0-0.5); Eosinophils % (Auto) 1 % (0-10); Hematocrit 27.5 % (36.0-46.0); Hemoglobin 8.9 g/dL (12.0-16.0); Immature Granulocytes % (Auto) 12 % (0-0); Immature Granulocytes Auto 2.05 Thou/mm3 (0.00-0.00); Lymphocytes # (Auto) 1.7 Thou/mm3 (1.0-4.8); Lymphocytes % (Auto) 10 % (10-50); Mean Corpuscular HGB Conc 32.4 g/dl (31.0-37.0); Mean Corpuscular Hemoglobin 32.2 pg (25.0-35.0); Mean Corpuscular Volume 100 fL (80-100); Monocytes # (Auto) 0.6 Thou/mm3 (0.0-0.8); Monocytes % (Auto) 4 % (0-12); Neutrophils % (Auto) 73 % (37-80); Nucleated Red Blood Cell % 6 /100 WBC (0); Platelet Count 174 Thou/mm3 (140-440); RDW Standard Deviation 50.4 fL (36.4-46.3); Red Blood Count 2.76 Miln/mm3 (4.00-5.20); White Blood Count 16.5 Thou/mm3 (3.6-11.0)
[2024-11-27 09:49] LABS: Alanine Aminotransferase 24 U/L (10-49); Albumin, Serum 2.7 gm/dL (3.5-5.0); Albumin/Globulin Ratio 1.6 (1.2-2.2); Alkaline Phosphatase 70 U/L (46-116); Anion Gap 8 (7-16); Aspartate Amino Transferase 31 U/L (0-34); BUN/Creatinine Ratio 26 Ratio (12-20); Bilirubin,Total 0.2 mg/dL (0.3-1.2); Blood Urea Nitrogen 26 mg/dL (9-23); Calcium 7.6 mg/dL (8.3-10.6); Calcium (Corrected) 8.6 mg/dL (8.5-10.1); Carbon Dioxide 23.8 mMol/L (20.0-31.0); Chloride 111 mMol/L (98-107); Estimated Creatinine Clearance 85.4 mL/min (>60); Globulin 1.7 gm/dL (2.3-3.5); Glucose 217 mg/dL (74-106); Magnesium 1.9 mg/dL (1.6-2.6); Osmolality,Calculated 296 (275-295); Phosphorous 1.2 mg/dL (2.4-5.1); Potassium 3.6 mMol/L (3.4-5.1); Sodium 143 mMol/L (136-145); Total Protein 4.4 gm/dL (5.7-8.2); eGFR > 60 See Note
--- NOTE | 2024-11-27 10:08 | ESPR_ITS ---
Documentation for date of: 11/27/24 Subjective Subjective Brief History: 54F with rheumatoid arthritis on chronic prednisone, obesity presenting yesterday with diarrhea and abdominal pain. Pt had recently traveled to [place] and also took a z-natalie which completed 11/20, and had watery diarrhea. Today pt underwent CT AP with findings of pneumoperitoneum and droplets adjacent to colon, she is on two pressors which are being weaned PMH: RA, hypothyroidism PSHx: Gastric bypass surgery, appendectomy, abdominoplasty Meds: on prednisone for years, no antiplt or anticoagulation Allergies: Bactrim Social hx: Nonsmoker Narrative: Transferred to floor yesterday, reporting stable pain, no nausea, passed gas but has not yet had a BM. Tube feeds were started at 5cc/hr yesterday, LO 305cc/24h, remaining afebrile Exam Vital Signs Temp Pulse Resp BP Pulse Ox O2 Del Method O2 Flow Rate 96.6 F L 130 H 20 143/91 H 93 L Room Air 1 11/27/24 08:00 11/27/24 08:30 11/27/24 08:00 11/27/24 08:30 11/27/24 08:00 11/27/24 08:00 11/26/24 06:29 FiO2 21 11/25/24 10:16 Constitutional Constitutional: no acute distress Routine Respiratory Exam Respiratory: Present no resp distress Routine Abdominal Exam Abdominal: Present soft, wound (midline wound with vac in place no drainage) and drain (LO with serosanguinous output); Absent tenderness or distended Results Results: Laboratory Laboratory results: results reviewed Assessment & Plan Plan 54F with RA chronically on prednisone, remote history of gastric bypass who initially presented with diarrhea, with subsequent findings of pneumoperitoneum on CT now s/p emergent laparotomy with repair of perforated gastrojejunostomy, washout and drain placement 11/23, gradually recovering NG removed FLD Monitor LO output DC kowalski PT/incentive spirometry Procedures Procedures Repair of perforated gastrojejunostomy, Gerson patch, washout, drain placement
[2024-11-27] MEDS: MORPHINE SULF INJ 10 MG/ML VIAL 4 MG IVP (10:10)
--- NOTE | 2024-11-27 11:08 | PC.SS ---
Rounding: ICU downgrade, following, LO drain, on TPN no anticipated DC at this time
[2024-11-27] MEDS: ZOLPIDEM 5 MG TABLET PO (12:11)
[2024-11-27] MEDS: HEPARIN SOD INJ 5000 UNIT/ML VIAL SC ×2 (14:13→22:52)
[2024-11-27 15:27] LABS: Path Review Blood Smear Sent to Pathologist
--- NOTE | 2024-11-27 16:08 | ESPR_ITS ---
<Statement entered by Julio Nichols MD - 11/27/24 20:34> Patient was seen and examined at the bedside. Patient was complaining of weakness and cough with productive phlegm. She also endorsed abdominal pain. Denies any nausea or vomiting. She had weak phonation. Surgeon, Dr. Thao recommended to start her on clear liquid diet. Will currently continuing TPN and will likely escalate diet as tolerated. Benzocaine spray was added for throat spray. Patient's Ambien was resumed. Patient is in ICU downgrade for perforated gastrojejunostomy s/p repair with Gerson patch with LO drain. LO drain still showing some output. Will continue with wound VAC for now. Given pain regimen with IV Tylenol 1 g Q6 hourly. Patient is currently on IV Zosyn for 7 days and micafungin. She is also on steroids for possible concern for adrenal insufficiency and history of rheumatoid arthritis on steroids. Home lisinopril was started as patient's blood pressure was elevated. All labs and orders were reviewed. I saw and examined the patient, and I agree with current management stated by Dr Emerson MD,PGY1. Plan of care was discussed with the attending physician and resident physician. Disclaimer: Despite multiple revisions, due to the dictation software being used, the document bellow may not be free of grammatical errors including phonetic/typographic errors. However, this does not deter from our commitment to providing health care in the patient's best interest in mind. Dr. Viktoria MD, PGY 2 Documentation for date of: 11/27/24 Subjective Subjective Interval history: No overnight events. Patient seen and examined at bedside. Patient resting in bed. Complains of weakness, cough with mild production of phlegm, abdominal pain. Denies nausea/vomiting, shortness of breath, fevers, chills. Has been passing gas but no bowel movement since procedure. Wishes to resume oral feeding. Patient started on clear liquid diet, NG tube removed. Continue TPN for now. Added benzocaine spray for sore throat. Exam Vital Signs Temp Pulse Resp BP Pulse Ox O2 Del Method O2 Flow Rate 97.5 F 122 H 20 169/99 H 90 L Room Air 1 11/27/24 12:00 11/27/24 12:00 11/27/24 12:00 11/27/24 12:00 11/27/24 12:00 11/27/24 12:00 11/26/24 06:29 FiO2 21 11/25/24 10:16 Narrative Exam Gen: Well-developed and well-nourished obese female. Soft, scratchy voice. HEENT: NCAT, PERRLA, EOMI, MMM, anicteric conjunctivae. CVS: normal S1 and S2. Sinus tachycardia. No M/R/G. Resp: Decreased breath sounds B/L due to body habitus. No rhonchi, rales, crackles or wheezing. Abd: soft, mildly distended, s/p laparoscopy with midline abdominal scar, appears clean, wound VAC and LO drain in place. BS+ in all 4 quadrants. Diffuse mild tenderness. MSK: Nonpitting edema BLE and BUE. Multiple ecchymosis dorsal surface BUE. Neuro: grossly intact Objective Labs 11/27/24 08:54 11/27/24 08:54 Labs: Laboratory Results - last 24 hr 11/22/24 11/22/24 11/27/24 02:00 15:40 08:54 WBC 16.5 H D RBC 2.76 L Hgb 8.9 L Hct 27.5 L MCV 100 MCH 32.2 MCHC 32.4 RDW Std Deviation 50.4 H Plt Count 174 D Neut % (Auto) 73 Lymph % (Auto) 10 [place] % (Auto) 4 Eos % (Auto) 1 Baso % (Auto) 0 Neut # (Auto) 12.0 H Lymph # (Auto) 1.7 [place] # (Auto) 0.6 Eos # (Auto) 0.1 Baso # (Auto) 0.0 Immature Gran # (Auto) 2.05 H Absolute Nucleated RBC 0.90 H Immature Gran % 12 H Nucleated RBC % 6 H Smear Path Review Sent to Pathologist Sodium 143 Potassium 3.6 D Chloride 111 H Carbon Dioxide 23.8 Anion Gap 8 BUN 26 H Creatinine 1.0 Estim Creat Clear Calc 85.4 eGFR > 60 BUN/Creatinine Ratio 26 H Glucose 217 H D Calculated Osmolality 296 H Calcium 7.6 L Corrected Calcium 8.6 Phosphorus 1.2 L Magnesium 1.9 Total Bilirubin 0.2 L AST 31 ALT 24 Alkaline Phosphatase 70 Total Protein 4.4 L Albumin 2.7 L Globulin 1.7 L Albumin/Globulin Ratio 1.6 Stool Calprotectin 1989 H Stl Giardia Antigen NOT DETECTED Stool Norovirus Ag NOT DETECTED ANCA Screen NEGATIVE c-ANCA Titer TNP Anti-Proteinase 3 <1.0 p-ANCA Titer TNP Atypical p-ANCA Titer TNP Anti-Myeloperoxidase <1.0 ABG Interpretation ABG results: 11/22/24 11/23/24 11/23/24 17:58 02:09 04:07 ABG pH 7.25 L 7.22 L 7.26 L ABG pCO2 22 L 28 L 24 L ABG pO2 102 69 L D 94 D ABG HCO3 9 L* 12 L 11 L ABG O2 Saturation 97 89 L 95 ABG Base Excess -16 L -15 L -15 L 11/23/24 11/24/24 11/25/24 06:27 05:01 04:01 ABG pH 7.15 L* D 7.42 D 7.40 ABG pCO2 35 D 33 36 ABG pO2 355 H D 124 H D 92 D ABG HCO3 12 L 21 22 ABG O2 Saturation 100 H 99 H 97 ABG Base Excess -16 L -3 -2 Quality Measures Quality Measures VTE therapy (Heparin) Assessment & Plan Assessment Current Active Medications: Generic Name Dose Route Start Last Admin Trade Name Freq PRN Reason Stop Dose Admin Al Hydrox/Mg Hydrox/Simethicone 30 ml 11/22/24 00:53 Mg Hyd/Al Hyd/Sandie (Maalox Reg) Susp 30 Ml Udc PO 12/22/24 00:52 Q4HR PRN UPSET STOMACH/INDIGESTION Albuterol/Ipratropium 3 ml 11/22/24 00:45 11/23/24 02:09 Albuterol/Ipratropium (Duoneb) Rt Marichuy 3 Ml Nebu INH 12/22/24 00:44 3 ml Q2HR PRN Administration SHORTNESS OF BREATH OR WHEEZE Benzocaine 0 dose 11/27/24 11:37 Benzocaine 20% (Hurricaine) [place] 1 Dose TOP 12/27/24 11:36 PRN PRN SORE THROAT Ambien Cr 12.5 Mg 0 ea 11/22/24 21:00 11/26/24 22:03 Tablet PO 12/22/24 20:59 Not Given HS ZAK Heparin Sodium (Porcine) 5,000 unit 11/27/24 14:00 11/27/24 14:13 Heparin Sod Inj 5000 Unit/Ml Vial SC 12/11/24 13:59 5,000 unit Q8HR ZAK Administration Micafungin Sodium 100 mg/ 100 mls @ 100 mls/hr 11/23/24 21:00 11/26/24 22:04 Sodium Chloride IV 12/23/24 20:59 100 mls/hr DAILY@2100 ZAK Administration Acetaminophen 1,000 mg in 100 mls @ 250 mls/hr 11/26/24 13:00 11/27/24 12:15 Ofirmev Inj IV 12/01/24 06:23 Not Given Q6HR ZAK Piperacillin Sod/Tazobactam 100 mls @ 25 mls/hr 11/26/24 22:00 11/27/24 14:13 Sod 4.5 gm/ Sodium Chloride IV 12/03/24 21:59 25 mls/hr Q8HR ZAK Administration Fat Emulsion Intravenous 500 mls @ 32 mls/hr 11/26/24 18:00 11/26/24 17:39 Intralipid 20% Iv IV 12/26/24 17:59 32 mls/hr TUTHSA@1800 ZAK Administration Calcium Gluconate 2 gm/ 2,030 mls @ 40 mls/hr 11/26/24 18:00 11/26/24 17:39 Multivitamins/Minerals 10 ml/ IV 11/27/24 17:59 40 mls/hr Amino Acids QDAY@1800 ZAK Administration Potassium Phosphate 15 mmol/ 2,010 mls @ 39.606 mls/hr 11/27/24 18:00 Sodium Phosphate 15 mmol/ IV 11/28/24 17:59 Amino Acids/Electrolytes QDAY@1800 ZAK Levothyroxine Sodium 125 mcg 11/22/24 06:00 11/27/24 07:37 Levothyroxine Sodium 125 Mcg Tablet PO 12/22/24 05:59 Not Given ACBR ZAK Lidocaine 1 patch 11/26/24 13:00 Lidocaine 5% 1 Patch TOP 12/26/24 12:59 UD PRN PAIN Methylprednisolone Sodium Succinate 4 mg 11/25/24 09:00 11/27/24 08:31 Methylprednisolone Sod Succ 40 Mg Vial IVP 12/02/24 08:59 4 mg QDAY ZAK Administration Protocol Ondansetron HCl 4 mg 11/22/24 00:51 11/27/24 04:13 Ondansetron Inj 2 Mg/Ml Inj 2 Ml IV 12/22/24 00:50 4 mg Q6H PRN Administration NAUSEA OR VOMITING Protocol Oxycodone HCl 10 mg 11/27/24 10:33 Oxycodone Hcl 5 Mg Ir Tab PO 12/02/24 10:32 Q4H PRN PAIN SCALE 4-10(Mod-Sev Pantoprazole Sodium 40 mg 11/24/24 09:00 11/27/24 08:32 Pantoprazole Inj 40 Mg Vial IV 12/24/24 08:59 40 mg BID ZAK Administration Spironolactone 25 mg 11/26/24 14:30 11/27/24 08:30 Spironolactone 25 Mg Tablet PO 12/26/24 14:29 25 mg BID ZAK Administration Plan Ms. 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 #Perforated gastrojejunostomy s/p repair, Gerson patch, washout, drain placement. Patient presented with intractable watery diarrhea for the past week. No blood no mucus. Recent antibiotic use and also recent travel to [place] where she was eating local food. Patient chronically on prednisone and monoclonal antibody upadacitinib for RA. On exam she has generalized abdominal pain tender to palpation in all quadrants, soft, mildly distended. History of Lynn-en-Y gastric bypass 20 years ago. CTAP showed pneumoperitoneum, air droplets in the wall of the colon, suspicious for ischemic bowel. General surgeon Dr. Thao was consulted, on 11/23/24 patient underwent repair of perforated gastrojejunostomy, Gerson patch, washout, drain placement without complications. On admission labs showed lactic acid 2.3, LDH 352, WBC 4.9. KUB did not show significant abnormalities. CT angio C/A/P was canceled due to worsening kidney function. In the ED patient received 4L normal saline IVF bolus, azithromycin and ceftriaxone IV x 1, on admission started with vancomycin, Zosyn and fidaxomicin. Patient passed swallow screen, started on full liquid diet by surgery. NG tube discontinued. Will continue TPN for now. Giardia, ova and parasites, H. pylori, norovirus negative. Stool calprotectin 1989. -Full liquid diet -TPN, will wean off his diet advances -IV acetaminophen 1000mg q6hr -Oxycodone 10 mg every 4 hours as needed for pain -GI Dr. Palacios consulted, Appreciate recommendations. -Infectious disease Dr. Forte, Appreciate recommendations. -general surgery following. #Pseudomonas PNA Sputum Gram stain positive for psudomonas on 11/26. Pt not experiencing fever, chest pain, SOB. WBC uptrending, afebrile. -zosyn 4.5 g every 8 hours for 7 days (until 08/03) #Hx of hypertension. Home medication lisinopril 20 Mg p.o. daily. No longer hypotensiive but will continue to hold antihypertensives due to s/p surgery and underling PNA infection. Plan: -Home medication on hold #?Adrenal Insufficiency Patient noted to be on senior living steroid usage vs autoimmune etiology. History of rheumatoid arthritis and unknown etiology hypothyroidism. Last dose was several days prior. Blood pressure poorly responsive to IVF resusitation. Labs significant for Hyponatremia, Hyperkalemia, hypocalcemia and NAGMA consistent with AI. Plan: -IV Solu-Medrol 4 mg daily #Normocytic anemia. Hemoglobin noted to drop to 8.2 from 10.8, likely related from surgical procedure on 11/23. No signs of active bleeding noted on 11/24. Plan -Monitor with daily CBC. -Transfuse pRBC for hemoglobin < 7.0. #Hx of hypothyroidism. Unknown etiology, . Patient's home medication levothyroxine 125 mcg p.o. daily. Patient's last dose increase was 2 months ago Plan: -resume home levothyroxine. #Hx of rheumatoid arthritis. Patient has long history of rheumatoid arthritis, underwent multiple treatments with methotrexate and other DMARDs, currently on prednisone 10 mg and monoclonal antibody upadacitinib for prolonged time. Plan: -upadacitinib on hold. -continue methylprednisolone 4 mg daily. FEN: Full liquid diet DVT prophylaxis: Heparin GI prophylaxis: IV pantoprazole 40mg BID. Lines: Peripheral IV, wound VAC, LO drain CODE STATUS: Full code. Plan of care discussed with senior resident Dr. Nichols PGY?[address] Matthews. Marcus Norman MD PGY?1 Attending Provider Attestation/Addendum I have discussed and was present for the essential components of the history, physical examination, diagnosis, and treatment plan with the resident. I agree with the patient's care as documented by the resident and amended herein by me. Chet Matthews, DO. Although this document has been carefully reviewed, there may still be some phonetic and other typographical errors. These errors are purely grammatical due to imperfections in the software program and should not be construed in any way to compromise the substance of the patient's medical care during this visit.
[2024-11-27] MEDS: Lisinopril 20 MG TABLET PO (16:56)
[2024-11-27] MEDS: POTASSIUM PHOS IV (17:00)
[2024-11-27] MEDS: AMINO ACID IV (17:00)
[2024-11-27] MEDS: [UNRECOGNIZED DRUG - OTHER] IV (17:00)
[2024-11-27] MEDS: SOD PHOS ADDITIVE IV (17:00)
--- NOTE | 2024-11-27 19:19 | ESPR_ITS ---
Documentation for date of: 11/27/24 Subjective Subjective Interval history: On full liquid diet Passing flatus No bowel movement yet Exam Vital Signs Temp Pulse Resp BP Pulse Ox O2 Del Method O2 Flow Rate 96.0 F L 122 H 20 155/104 H 90 L Room Air 1 11/27/24 16:00 11/27/24 16:56 11/27/24 16:00 11/27/24 16:56 11/27/24 16:00 11/27/24 16:00 11/26/24 06:29 FiO2 21 11/25/24 10:16 Routine Abdominal Exam Comments: Positive bowel sounds Objective Labs 11/27/24 08:54 11/27/24 08:54 Labs: Laboratory Results - last 24 hr 11/22/24 11/22/24 11/27/24 02:00 15:40 08:54 WBC 16.5 H D RBC 2.76 L Hgb 8.9 L Hct 27.5 L MCV 100 MCH 32.2 MCHC 32.4 RDW Std Deviation 50.4 H Plt Count 174 D Neut % (Auto) 73 Lymph % (Auto) 10 [place] % (Auto) 4 Eos % (Auto) 1 Baso % (Auto) 0 Neut # (Auto) 12.0 H Lymph # (Auto) 1.7 [place] # (Auto) 0.6 Eos # (Auto) 0.1 Baso # (Auto) 0.0 Immature Gran # (Auto) 2.05 H Absolute Nucleated RBC 0.90 H Immature Gran % 12 H Nucleated RBC % 6 H Smear Path Review Sent to Pathologist Sodium 143 Potassium 3.6 D Chloride 111 H Carbon Dioxide 23.8 Anion Gap 8 BUN 26 H Creatinine 1.0 Estim Creat Clear Calc 85.4 eGFR > 60 BUN/Creatinine Ratio 26 H Glucose 217 H D Calculated Osmolality 296 H Calcium 7.6 L Corrected Calcium 8.6 Phosphorus 1.2 L Magnesium 1.9 Total Bilirubin 0.2 L AST 31 ALT 24 Alkaline Phosphatase 70 Total Protein 4.4 L Albumin 2.7 L Globulin 1.7 L Albumin/Globulin Ratio 1.6 Stool Calprotectin 1990 H Stl Giardia Antigen NOT DETECTED Stool Norovirus Ag NOT DETECTED ANCA Screen NEGATIVE c-ANCA Titer TNP Anti-Proteinase 3 <1.0 p-ANCA Titer TNP Atypical p-ANCA Titer TNP Anti-Myeloperoxidase <1.0 Impressions Impression: # Status post exploratory laparotomy for gastrojejunostomy anastomotic site perforation Doing well postoperatively ABG Interpretation ABG results: 11/22/24 11/23/24 11/23/24 17:58 02:09 04:07 ABG pH 7.25 L 7.22 L 7.26 L ABG pCO2 22 L 28 L 24 L ABG pO2 102 69 L D 94 D ABG HCO3 9 L* 12 L 11 L ABG O2 Saturation 97 89 L 95 ABG Base Excess -16 L -15 L -15 L 11/23/24 11/24/24 11/25/24 06:27 05:01 04:01 ABG pH 7.15 L* D 7.42 D 7.40 ABG pCO2 35 D 33 36 ABG pO2 355 H D 124 H D 92 D ABG HCO3 12 L 21 22 ABG O2 Saturation 100 H 99 H 97 ABG Base Excess -16 L -3 -2 Assessment & Plan A&P Narrative abx are empirical. 5 d of rx ok post operatively (stop it trial) presumptive peritonitis will f/u on Saturday as I will be away on saturday, ok to stop rx 5d after x lap given study data and repeat imaging if worsens. Time Spent With Patient Time: Total time spent is greater than 50% in coordination of care (as documented) at patient's floor/unit and/or counseling patient: Procedures Arterial Line Size (Gauge): 20
[2024-11-27] MEDS: AMBIEN 12.5 MG PO (20:00)
[2024-11-27] MEDS: MICAFUNGIN SODIUM INJ 100 MG in SODIUM CHLORIDE 0.9% 100 ML IV (21:39)
[2024-11-27] MEDS: oxyCODONE HCL 5 MG IR TAB 10 MG PO (21:39)
[2024-11-28] VITALS (11 sets, daily range): BP systolic 122–168; BP diastolic 91–103; PULSE 100–122; RESP 15–93; TEMP 35.9–36.4; O2SAT 90–93; BMI 43.7
[2024-11-28] MEDS: ACETAMINOPHEN IVPB 1,000 MG/100 ML VIAL 250 MG IV ×2 (02:38→12:19)
[2024-11-28] MEDS: PIPER/TAZO INJ 4.5 GM in SODIUM CHLORIDE 0.9% 100 ML IV ×3 (06:10→21:01)
[2024-11-28] MEDS: LEVOTHYROXINE SODIUM 125 MCG TABLET PO (06:12)
[2024-11-28] MEDS: HEPARIN SOD INJ 5000 UNIT/ML VIAL SC ×2 (06:13→20:49)
[2024-11-28 06:27] LABS: Basophils # (Auto) 0.1 Thou/mm3 (0.0-0.2); Basophils % (Auto) 1 % (0-2.5); Eosinophils # (Auto) 0.2 Thou/mm3 (0.0-0.5); Eosinophils % (Auto) 1 % (0-10); Hematocrit 28.8 % (36.0-46.0); Immature Granulocytes % (Auto) 10 % (0-0); Immature Granulocytes Auto 1.51 Thou/mm3 (0.00-0.00); Lymphocytes # (Auto) 1.6 Thou/mm3 (1.0-4.8); Lymphocytes % (Auto) 10 % (10-50); Mean Corpuscular HGB Conc 31.3 g/dl (31.0-37.0); Mean Corpuscular Hemoglobin 31.6 pg (25.0-35.0); Mean Corpuscular Volume 101 fL (80-100); Monocytes # (Auto) 0.5 Thou/mm3 (0.0-0.8); Monocytes % (Auto) 4 % (0-12); Neutrophils # (Auto) 11.6 Thou/mm3 (1.8-7.7); Neutrophils % (Auto) 75 % (37-80); Nucleated Red Blood Cell # 0.38 Thou/mm3 (0.00-0.00); Nucleated Red Blood Cell % 3 /100 WBC (0); Platelet Count 129 Thou/mm3 (140-440); RDW Standard Deviation 51.4 fL (36.4-46.3); Red Blood Count 2.85 Miln/mm3 (4.00-5.20); White Blood Count 15.5 Thou/mm3 (3.6-11.0)
[2024-11-28 07:02] LABS: Alanine Aminotransferase 20 U/L (10-49); Albumin, Serum 2.4 gm/dL (3.5-5.0); Albumin/Globulin Ratio 1.3 (1.2-2.2); Alkaline Phosphatase 57 U/L (46-116); Anion Gap 7 (7-16); Aspartate Amino Transferase < 8 U/L (0-34); BUN/Creatinine Ratio 23 Ratio (12-20); Bilirubin,Total 0.2 mg/dL (0.3-1.2); Blood Urea Nitrogen 21 mg/dL (9-23); Calcium 7.5 mg/dL (8.3-10.6); Calcium (Corrected) 8.8 mg/dL (8.5-10.1); Carbon Dioxide 25.7 mMol/L (20.0-31.0); Chloride 111 mMol/L (98-107); Creatinine (Component) 0.9 mg/dL (0.6-1.3); Estimated Creatinine Clearance 90.8 mL/min (>60); Globulin 1.8 gm/dL (2.3-3.5); Glucose 191 mg/dL (74-106); Magnesium 1.7 mg/dL (1.6-2.6); Osmolality,Calculated 294 (275-295); Phosphorous 2.1 mg/dL (2.4-5.1); Potassium 3.8 mMol/L (3.4-5.1); Sodium 144 mMol/L (136-145); Total Protein 4.2 gm/dL (5.7-8.2); eGFR > 60 See Note
[2024-11-28] MEDS: PANTOPRAZOLE INJ 40 MG VIAL IV ×2 (08:58→20:39)
[2024-11-28] MEDS: SPIRONOLACTONE 25 MG TABLET PO ×2 (08:58→20:39)
[2024-11-28] MEDS: Lisinopril 20 MG TABLET PO (08:58)
[2024-11-28] MEDS: Magnesium Sulfate 4 GM Ivpb 4 GM/50 ML BAG IV (08:59)
[2024-11-28] MEDS: POT PHOS 15 mMol in NS 250 ML 15 MMOL/250 ML BAG 62.5 MMOL IV (10:06)
--- NOTE | 2024-11-28 12:05 | ESPR_ITS ---
Documentation for date of: 11/28/24 Subjective Subjective Interval history: 11/28: No acute events overnight. LO drain is in place and draining serosanguineous fluid. 280 mL currently output over 24 hours as charted. Site is clean dry intact. Vitals today, except heart rate of 111. WBC trending down. CMP normal, repeating phosphorus. Patient states that she has not have a bowel movement yet, but is passing flatulence. Pending surgery recommendations, diet advancing as tolerated. Exam Vital Signs Temp Pulse Resp BP Pulse Ox O2 Del Method O2 Flow Rate 97.1 F 117 H 16 143/91 H 93 L Room Air 1 11/28/24 08:00 11/28/24 10:24 11/28/24 10:24 11/28/24 08:58 11/28/24 10:24 11/28/24 08:00 11/26/24 06:29 FiO2 21 11/25/24 10:16 Narrative Exam Gen: Well-developed and well-nourished obese female. Soft, scratchy voice. HEENT: NCAT, PERRLA, EOMI, MMM, anicteric conjunctivae. CVS: normal S1 and S2. Sinus tachycardia. No M/R/G. Resp: Decreased breath sounds B/L due to body habitus. No rhonchi, rales, crackles or wheezing. Abd: soft, mildly distended, s/p laparoscopy with midline abdominal scar, appears clean, wound VAC and LO drain in place. BS+ in all 4 quadrants. Diffuse mild tenderness. MSK: Nonpitting edema BLE and BUE. Multiple ecchymosis dorsal surface BUE. Neuro: grossly intact Objective Labs 11/28/24 05:32 11/28/24 05:32 Labs: Laboratory Results - last 24 hr 11/27/24 11/28/24 08:54 05:32 WBC 16.5 H D 15.5 H RBC 2.76 L 2.85 L Hgb 8.9 L 9.0 L Hct 27.5 L 28.8 L MCV 100 101 H MCH 32.2 31.6 MCHC 32.4 31.3 RDW Std Deviation 50.4 H 51.4 H Plt Count 174 D 129 L D Neut % (Auto) 73 75 Lymph % (Auto) 10 10 [place] % (Auto) 4 4 Eos % (Auto) 1 1 Baso % (Auto) 0 1 Neut # (Auto) 12.0 H 11.6 H Lymph # (Auto) 1.7 1.6 [place] # (Auto) 0.6 0.5 Eos # (Auto) 0.1 0.2 Baso # (Auto) 0.0 0.1 Immature Gran # (Auto) 2.05 H 1.51 H Absolute Nucleated RBC 0.90 H 0.38 H Immature Gran % 12 H 10 H Nucleated RBC % 6 H 3 H Smear Path Review Sent to Pathologist Sodium 143 144 Potassium 3.6 D 3.8 Chloride 111 H 111 H Carbon Dioxide 23.8 25.7 Anion Gap 8 7 BUN 26 H 21 Creatinine 1.0 0.9 Estim Creat Clear Calc 85.4 90.8 eGFR > 60 > 60 BUN/Creatinine Ratio 26 H 23 H Glucose 217 H D 191 H Calculated Osmolality 296 H 294 Calcium 7.6 L 7.5 L Corrected Calcium 8.6 8.8 Phosphorus 1.2 L 2.1 L Magnesium 1.9 1.7 Total Bilirubin 0.2 L 0.2 L AST 31 < 8 ALT 24 20 Alkaline Phosphatase 70 57 Total Protein 4.4 L 4.2 L Albumin 2.7 L 2.4 L Globulin 1.7 L 1.8 L Albumin/Globulin Ratio 1.6 1.3 ABG Interpretation ABG results: 11/22/24 11/23/24 11/23/24 17:58 02:09 04:07 ABG pH 7.25 L 7.22 L 7.26 L ABG pCO2 22 L 28 L 24 L ABG pO2 102 69 L D 94 D ABG HCO3 9 L* 12 L 11 L ABG O2 Saturation 97 89 L 95 ABG Base Excess -16 L -15 L -15 L 11/23/24 11/24/24 11/25/24 06:27 05:01 04:01 ABG pH 7.15 L* D 7.42 D 7.40 ABG pCO2 35 D 33 36 ABG pO2 355 H D 124 H D 92 D ABG HCO3 12 L 21 22 ABG O2 Saturation 100 H 99 H 97 ABG Base Excess -16 L -3 -2 Quality Measures Quality Measures VTE therapy (Heparin) Assessment & Plan Assessment Current Active Medications: Generic Name Dose Route Start Last Admin Trade Name Freq PRN Reason Stop Dose Admin Al Hydrox/Mg Hydrox/Simethicone 30 ml 11/22/24 00:53 Mg Hyd/Al Hyd/Sandie (Maalox Reg) Susp 30 Ml Udc PO 12/22/24 00:52 Q4HR PRN UPSET STOMACH/INDIGESTION Albuterol/Ipratropium 3 ml 11/22/24 00:45 11/23/24 02:09 Albuterol/Ipratropium (Duoneb) Rt Marichuy 3 Ml Nebu INH 12/22/24 00:44 3 ml Q2HR PRN Administration SHORTNESS OF BREATH OR WHEEZE Benzocaine 0 dose 11/27/24 11:37 Benzocaine 20% (Hurricaine) Comfort 1 Dose TOP 12/27/24 11:36 PRN PRN SORE THROAT Ambien Cr 12.5 Mg 0 ea 11/22/24 21:00 11/27/24 20:00 Tablet PO 12/22/24 20:59 1 tablet HS ZAK Administration Heparin Sodium (Porcine) 5,000 unit 11/28/24 21:00 Heparin Sod Inj 5000 Unit/Ml Vial SC 12/12/24 20:59 BID ZAK Acetaminophen 1,000 mg in 100 mls @ 250 mls/hr 11/26/24 13:00 11/28/24 06:08 Ofirmev Inj IV 12/01/24 06:23 Not Given Q6HR ZAK Piperacillin Sod/Tazobactam 100 mls @ 25 mls/hr 11/26/24 22:00 11/28/24 06:10 Sod 4.5 gm/ Sodium Chloride IV 12/03/24 21:59 25 mls/hr Q8HR ZAK Administration Fat Emulsion Intravenous 500 mls @ 32 mls/hr 11/26/24 18:00 11/26/24 17:39 Intralipid 20% Iv IV 12/26/24 17:59 32 mls/hr TUTHSA@1800 ZAK Administration Potassium Phosphate 15 mmol/ 2,010 mls @ 39.606 mls/hr 11/27/24 18:00 11/27/24 17:00 Sodium Phosphate 15 mmol/ IV 11/28/24 17:59 39.606 mls/hr Amino Acids/Electrolytes QDAY@1800 ZAK Administration Magnesium Sulfate 4 gm in 50 mls @ 12.5 mls/hr 11/28/24 08:31 11/28/24 08:59 Magnesium Sulfate Ivpb IV 11/28/24 12:30 12.5 mls/hr X1 ONE Administration Potassium Phosphate 15 mmol in 250 mls @ 62.5 mls/hr 11/28/24 08:33 11/28/24 10:06 Pot Phos 15 Mmol In Ns 250 Ml IV 11/28/24 12:32 62.5 mls/hr X1 ONE Administration Sodium Phosphate 15 mmol/ 2,005 mls @ 39.507 mls/hr 11/28/24 18:00 Amino Acids/Electrolytes IV 11/29/24 17:59 QDAY@1800 ZAK Levothyroxine Sodium 125 mcg 11/22/24 06:00 11/28/24 06:12 Levothyroxine Sodium 125 Mcg Tablet PO 12/22/24 05:59 125 mcg ACBR ZAK Administration Lidocaine 1 patch 11/26/24 13:00 Lidocaine 5% 1 Patch TOP 12/26/24 12:59 UD PRN PAIN Protocol Lisinopril 20 mg 11/27/24 16:45 11/28/24 08:58 Lisinopril 20 Mg Tablet PO 12/27/24 16:44 20 mg QDAY ZAK Administration Methylprednisolone Sodium Succinate 4 mg 11/25/24 09:00 11/28/24 08:58 Methylprednisolone Sod Succ 40 Mg Vial IVP 12/02/24 08:59 4 mg QDAY ZAK Administration Protocol Ondansetron HCl 4 mg 11/22/24 00:51 11/27/24 04:13 Ondansetron Inj 2 Mg/Ml Inj 2 Ml IV 12/22/24 00:50 4 mg Q6H PRN Administration NAUSEA OR VOMITING Protocol Oxycodone HCl 10 mg 11/27/24 10:33 11/27/24 21:39 Oxycodone Hcl 5 Mg Ir Tab PO 12/02/24 10:32 10 mg Q4H PRN Administration PAIN SCALE 4-10(Mod-Sev Pantoprazole Sodium 40 mg 11/24/24 09:00 11/28/24 08:58 Pantoprazole Inj 40 Mg Vial IV 12/24/24 08:59 40 mg BID ZAK Administration Spironolactone 25 mg 11/26/24 14:30 11/28/24 08:58 Spironolactone 25 Mg Tablet PO 12/26/24 14:29 25 mg BID ZAK Administration Plan Ms. 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 #Perforated gastrojejunostomy s/p repair, Gerson patch, washout, drain placement. Patient presented with intractable watery diarrhea for the past week. No blood no mucus. Recent antibiotic use and also recent travel to [place] where she was eating local food. Patient chronically on prednisone and monoclonal antibody upadacitinib for RA. On exam she has generalized abdominal pain tender to palpation in all quadrants, soft, mildly distended. History of Lynn-en-Y gastric bypass 20 years ago. CTAP showed pneumoperitoneum, air droplets in the wall of the colon, suspicious for ischemic bowel. General surgeon Dr. Thao was consulted, on 11/23/24 patient underwent repair of perforated gastrojejunostomy, Gerson patch, washout, drain placement without complications. On admission labs showed lactic acid 2.3, LDH 352, WBC 4.9. KUB did not show significant abnormalities. CT angio C/A/P was canceled due to worsening kidney function. In the ED patient received 4L normal saline IVF bolus, azithromycin and ceftriaxone IV x 1, on admission started with vancomycin, Zosyn and fidaxomicin. Patient passed swallow screen, started on full liquid diet by surgery. NG tube discontinued. Will continue TPN for now. Giardia, ova and parasites, H. pylori, norovirus negative. Stool calprotectin 1989. -Full liquid diet, will advance as tolerated, pend surgery recommendations -TPN, will wean off his diet advances -IV acetaminophen 1000mg q6hr -Oxycodone 10 mg every 4 hours as needed for pain -GI Dr. Palacios consulted, Appreciate recommendations. -Infectious disease Dr. Forte, Appreciate recommendations. -general surgery following. #Pseudomonas PNA Sputum Gram stain positive for psudomonas on 11/26. Pt not experiencing fever, chest pain, SOB. WBC uptrending, afebrile. -zosyn 4.5 g every 8 hours for 7 days 11/26?day 3 #Hx of hypertension. Home medication lisinopril 20 Mg p.o. daily. No longer hypotensive but will continue to hold antihypertensives due to s/p surgery and underling PNA infection. Plan: -Home medication on hold, pressure stable. #?Adrenal Insufficiency Patient noted to be on custodial steroid usage vs autoimmune etiology. History of rheumatoid arthritis and unknown etiology hypothyroidism. Last dose was several days prior. Blood pressure poorly responsive to IVF resusitation. Labs significant for Hyponatremia, Hyperkalemia, hypocalcemia and NAGMA consistent with AI. Plan: -IV Solu-Medrol 4 mg daily #Normocytic anemia. Hemoglobin noted to drop to 8.2 from 10.8, likely related from surgical procedure on 11/23. No signs of active bleeding noted on 11/24. Plan -Monitor with daily CBC. -Transfuse pRBC for hemoglobin < 7.0. #Hx of hypothyroidism. Unknown etiology, . Patient's home medication levothyroxine 125 mcg p.o. daily. Patient's last dose increase was 2 months ago Plan: -Resumed home levothyroxine #Hx of rheumatoid arthritis. Patient has long history of rheumatoid arthritis, underwent multiple treatments with methotrexate and other DMARDs, currently on prednisone 10 mg and monoclonal antibody upadacitinib for prolonged time. Plan: -upadacitinib on hold. -continue methylprednisolone 4 mg daily. FEN: Full liquid diet DVT prophylaxis: Heparin GI prophylaxis: IV pantoprazole 40mg BID. Lines: Peripheral IV, wound VAC, LO drain CODE STATUS: Full code. Plan of care discussed with senior resident Dr. Nichols PGY?[address] Matthews. Wayne Aceves DO PGY1 Attending Provider Attestation/Addendum I have discussed and was present for the essential components of the history, physical examination, diagnosis, and treatment plan with the resident. I agree with the patient's care as documented by the resident and amended herein by me. Chet Matthews DO. Patient seen and evaluated this AM. Will continue IV antibiotics at this time, will also reach out to surgery for recommendations on advancing diet, no bowel movements as of this morning however the patient is passing flatus. Will DC micafungin at this time. Patient does feel improved, got a good night sleep, WBC is downtrending to 15 today, hemoglobin stable at 9. Will continue to monitor closely, likely discharge in 2 to 3 days pending improvement and specialist recommendations. Although this document has been carefully reviewed, there may still be some phonetic and other typographical errors. These errors are purely grammatical due to imperfections in the software program and should not be construed in any way to compromise the substance of the patient's medical care during this visit.
--- NOTE | 2024-11-28 14:16 | PD.IMPROG ---
Documentation for date of: 11/28/24 Subjective Subjective Interval history: Patient evaluated She had 2 bowel movements No nausea vomiting Passing flatus Advance diet as tolerated Exam Vital Signs Temp Pulse Resp BP Pulse Ox O2 Del Method O2 Flow Rate 96.6 F L 122 H 18 168/103 H 92 L Room Air 1 11/28/24 12:00 11/28/24 12:00 11/28/24 12:00 11/28/24 12:00 11/28/24 12:00 11/28/24 12:00 11/26/24 06:29 FiO2 21 11/25/24 10:16 Constitutional Comments: Alert oriented Routine Respiratory Exam Comments: Normal to auscultation Routine Abdominal Exam Comments: Soft nontender positive bowel sounds Objective Labs 11/28/24 05:32 11/28/24 05:32 Labs: Laboratory Results - last 24 hr 11/27/24 11/28/24 08:54 05:32 WBC 16.5 H D 15.5 H RBC 2.76 L 2.85 L Hgb 8.9 L 9.0 L Hct 27.5 L 28.8 L MCV 100 101 H MCH 32.2 31.6 MCHC 32.4 31.3 RDW Std Deviation 50.4 H 51.4 H Plt Count 174 D 129 L D Neut % (Auto) 73 75 Lymph % (Auto) 10 10 [place] % (Auto) 4 4 Eos % (Auto) 1 1 Baso % (Auto) 0 1 Neut # (Auto) 12.0 H 11.6 H Lymph # (Auto) 1.7 1.6 [place] # (Auto) 0.6 0.5 Eos # (Auto) 0.1 0.2 Baso # (Auto) 0.0 0.1 Immature Gran # (Auto) 2.05 H 1.51 H Absolute Nucleated RBC 0.90 H 0.38 H Immature Gran % 12 H 10 H Nucleated RBC % 6 H 3 H Smear Path Review Sent to Pathologist Sodium 143 144 Potassium 3.6 D 3.8 Chloride 111 H 111 H Carbon Dioxide 23.8 25.7 Anion Gap 8 7 BUN 26 H 21 Creatinine 1.0 0.9 Estim Creat Clear Calc 85.4 90.8 eGFR > 60 > 60 BUN/Creatinine Ratio 26 H 23 H Glucose 217 H D 191 H Calculated Osmolality 296 H 294 Calcium 7.6 L 7.5 L Corrected Calcium 8.6 8.8 Phosphorus 1.2 L 2.1 L Magnesium 1.9 1.7 Total Bilirubin 0.2 L 0.2 L AST 31 < 8 ALT 24 20 Alkaline Phosphatase 70 57 Total Protein 4.4 L 4.2 L Albumin 2.7 L 2.4 L Globulin 1.7 L 1.8 L Albumin/Globulin Ratio 1.6 1.3 Impressions Impression: # Doing well postoperatively after repair of the perforated gastrojejunostomy anastomosis Advance diet as tolerated ABG Interpretation ABG results: 11/22/24 11/23/24 11/23/24 17:58 02:09 04:07 ABG pH 7.25 L 7.22 L 7.26 L ABG pCO2 22 L 28 L 24 L ABG pO2 102 69 L D 94 D ABG HCO3 9 L* 12 L 11 L ABG O2 Saturation 97 89 L 95 ABG Base Excess -16 L -15 L -15 L 11/23/24 11/24/24 11/25/24 06:27 05:01 04:01 ABG pH 7.15 L* D 7.42 D 7.40 ABG pCO2 35 D 33 36 ABG pO2 355 H D 124 H D 92 D ABG HCO3 12 L 21 22 ABG O2 Saturation 100 H 99 H 97 ABG Base Excess -16 L -3 -2 Assessment & Plan A&P Narrative abx are empirical. 5 d of rx ok post operatively (stop it trial) presumptive peritonitis will f/u on Saturday as I will be away on saturday, ok to stop rx 5d after x lap given study data and repeat imaging if worsens. Time Spent With Patient Time: Total time spent is greater than 50% in coordination of care (as documented) at patient's floor/unit and/or counseling patient: Procedures Arterial Line Size (Gauge): 20
[2024-11-28] MEDS: FAT EMULSIONS 20% IV 500 ML 32 ML IV (17:05)
[2024-11-28] MEDS: [UNRECOGNIZED DRUG - OTHER] IV (17:06)
[2024-11-28] MEDS: SOD PHOS ADDITIVE IV (17:06)
[2024-11-28] MEDS: AMINO ACID IV (17:06)
[2024-11-28] MEDS: AMBIEN 12.5 MG PO (20:41)
--- NOTE | 2024-11-28 20:50 | PC.NURSE ---
Addendum entered by Karlee Goss RN 11/29/24 22:24: 11/29/2024 Day Nurse changed central line dressing today. Original Note: Patient refused to have central line dressing changed, states too tired and will have it done tomorrow.
[2024-11-29] VITALS (14 sets, daily range): BP systolic 119–178; BP diastolic 61–98; PULSE 84–124; RESP 15–96; TEMP 36.1–37.1; O2SAT 91–97; BMI 43.4
[2024-11-29] MEDS: ACETAMINOPHEN IVPB 1,000 MG/100 ML VIAL 250 MG IV ×4 (00:01→18:24)
[2024-11-29 05:36] LABS: Basophils # (Auto) 0.1 Thou/mm3 (0.0-0.2); Basophils % (Auto) 0 % (0-2.5); Eosinophils # (Auto) 0.2 Thou/mm3 (0.0-0.5); Eosinophils % (Auto) 1 % (0-10); Immature Granulocytes % (Auto) 8 % (0-0); Immature Granulocytes Auto 1.11 Thou/mm3 (0.00-0.00); Lymphocytes # (Auto) 1.7 Thou/mm3 (1.0-4.8); Lymphocytes % (Auto) 12 % (10-50); Mean Corpuscular HGB Conc 31.1 g/dl (31.0-37.0); Mean Corpuscular Hemoglobin 31.9 pg (25.0-35.0); Mean Corpuscular Volume 103 fL (80-100); Monocytes # (Auto) 0.6 Thou/mm3 (0.0-0.8); Monocytes % (Auto) 4 % (0-12); Neutrophils # (Auto) 10.6 Thou/mm3 (1.8-7.7); Neutrophils % (Auto) 74 % (37-80); Nucleated Red Blood Cell # 0.32 Thou/mm3 (0.00-0.00); Nucleated Red Blood Cell % 2 /100 WBC (0); Platelet Count 132 Thou/mm3 (140-440); RDW Standard Deviation 52.8 fL (36.4-46.3); Red Blood Count 2.73 Miln/mm3 (4.00-5.20); White Blood Count 14.3 Thou/mm3 (3.6-11.0)
[2024-11-29 05:37] LABS: Hemoglobin 8.7 g/dL (12.0-16.0)
[2024-11-29] MEDS: PIPER/TAZO INJ 4.5 GM in SODIUM CHLORIDE 0.9% 100 ML IV ×3 (05:41→21:36)
[2024-11-29] MEDS: LEVOTHYROXINE SODIUM 125 MCG TABLET PO (05:41)
[2024-11-29 06:03] LABS: Alanine Aminotransferase 15 U/L (10-49); Albumin, Serum 2.4 gm/dL (3.5-5.0); Albumin/Globulin Ratio 1.3 (1.2-2.2); Alkaline Phosphatase 55 U/L (46-116); Anion Gap 9 (7-16); Aspartate Amino Transferase 12 U/L (0-34); BUN/Creatinine Ratio 20 Ratio (12-20); Bilirubin,Total < 0.2 mg/dL (0.3-1.2); Blood Urea Nitrogen 16 mg/dL (9-23); Calcium 7.4 mg/dL (8.3-10.6); Calcium (Corrected) 8.7 mg/dL (8.5-10.1); Carbon Dioxide 26.4 mMol/L (20.0-31.0); Chloride 107 mMol/L (98-107); Creatinine (Component) 0.8 mg/dL (0.6-1.3); Estimated Creatinine Clearance 102.1 mL/min (>60); Globulin 1.9 gm/dL (2.3-3.5); Glucose 192 mg/dL (74-106); Magnesium 1.9 mg/dL (1.6-2.6); Osmolality,Calculated 289 (275-295); Phosphorous 1.9 mg/dL (2.4-5.1); Potassium 3.7 mMol/L (3.4-5.1); Sodium 142 mMol/L (136-145); Total Protein 4.3 gm/dL (5.7-8.2); eGFR > 60 See Note
[2024-11-29] MEDS: PANTOPRAZOLE INJ 40 MG VIAL IV ×2 (08:32→20:33)
[2024-11-29] MEDS: HEPARIN SOD INJ 5000 UNIT/ML VIAL SC ×2 (08:32→20:33)
[2024-11-29] MEDS: Lisinopril 20 MG TABLET PO (08:32)
[2024-11-29] MEDS: SPIRONOLACTONE 25 MG TABLET PO ×2 (08:33→20:33)
[2024-11-29] MEDS: POT PHOS 15 mMol in NS 250 ML 15 MMOL/250 ML BAG 62.5 MMOL IV (10:10)
[2024-11-29] MEDS: NAPH,KPH MBDB 1 PACKET (1.5 GM) PO ×2 (10:10→20:33)
--- NOTE | 2024-11-29 13:27 | ESPR_ITS ---
Documentation for date of: 11/29/24 Subjective Subjective Interval history: No overnight events. Patient seen and examined resting in bed. No new specific complaints, endorses abdominal pain and sore throat. No fevers, chills, SOB, chest pain, nausea, or vomiting. Patient tolerating diet well. Multiple bowel movements. LO drain 180 ml over 12 hours. Stop TPN, plan to d/c central line. Exam Vital Signs Temp Pulse Resp BP Pulse Ox O2 Del Method O2 Flow Rate 98.4 F 115 H 17 178/98 H 94 L Room Air 1 11/29/24 11:57 11/29/24 11:57 11/29/24 11:57 11/29/24 11:57 11/29/24 11:57 11/29/24 07:39 11/26/24 06:29 FiO2 21 11/25/24 10:16 Narrative Exam Gen: Well-developed and well-nourished obese female. Soft, scratchy voice. HEENT: NCAT, PERRLA, EOMI, MMM, anicteric conjunctivae. CVS: normal S1 and S2. Sinus tachycardia. No M/R/G. Resp: Decreased breath sounds B/L due to body habitus. No rhonchi, rales, crackles or wheezing. Abd: soft, mildly distended, s/p laparoscopy with midline abdominal scar, appears clean, wound VAC and LO drain in place. BS+ in all 4 quadrants. Diffuse mild tenderness. MSK: Nonpitting edema BLE and BUE. Multiple ecchymosis dorsal surface BUE. Neuro: grossly intact Objective Labs 11/29/24 04:38 11/29/24 04:38 Labs: Laboratory Results - last 24 hr 11/29/24 04:38 WBC 14.3 H RBC 2.73 L Hgb 8.7 L Hct 28.0 L MCV 103 H MCH 31.9 MCHC 31.1 RDW Std Deviation 52.8 H Plt Count 132 L Neut % (Auto) 74 Lymph % (Auto) 12 [place] % (Auto) 4 Eos % (Auto) 1 Baso % (Auto) 0 Neut # (Auto) 10.6 H Lymph # (Auto) 1.7 [place] # (Auto) 0.6 Eos # (Auto) 0.2 Baso # (Auto) 0.1 Immature Gran # (Auto) 1.11 H Absolute Nucleated RBC 0.32 H Immature Gran % 8 H Nucleated RBC % 2 H Sodium 142 Potassium 3.7 Chloride 107 Carbon Dioxide 26.4 Anion Gap 9 BUN 16 Creatinine 0.8 Estim Creat Clear Calc 102.1 eGFR > 60 BUN/Creatinine Ratio 20 Glucose 192 H Calculated Osmolality 289 Calcium 7.4 L Corrected Calcium 8.7 Phosphorus 1.9 L Magnesium 1.9 Total Bilirubin < 0.2 L AST 12 ALT 15 Alkaline Phosphatase 55 Total Protein 4.3 L Albumin 2.4 L Globulin 1.9 L Albumin/Globulin Ratio 1.3 ABG Interpretation ABG results: 11/22/24 11/23/24 11/23/24 17:58 02:09 04:07 ABG pH 7.25 L 7.22 L 7.26 L ABG pCO2 22 L 28 L 24 L ABG pO2 102 69 L D 94 D ABG HCO3 9 L* 12 L 11 L ABG O2 Saturation 97 89 L 95 ABG Base Excess -16 L -15 L -15 L 11/23/24 11/24/24 11/25/24 06:27 05:01 04:01 ABG pH 7.15 L* D 7.42 D 7.40 ABG pCO2 35 D 33 36 ABG pO2 355 H D 124 H D 92 D ABG HCO3 12 L 21 22 ABG O2 Saturation 100 H 99 H 97 ABG Base Excess -16 L -3 -2 Quality Measures Quality Measures VTE therapy (Heparin) Assessment & Plan Assessment Current Active Medications: Generic Name Dose Route Start Last Admin Trade Name Freq PRN Reason Stop Dose Admin Al Hydrox/Mg Hydrox/Simethicone 30 ml 11/22/24 00:53 Mg Hyd/Al Hyd/Sandie (Maalox Reg) Susp 30 Ml Udc PO 12/22/24 00:52 Q4HR PRN UPSET STOMACH/INDIGESTION Albuterol/Ipratropium 3 ml 11/22/24 00:45 11/23/24 02:09 Albuterol/Ipratropium (Duoneb) Rt [place] 3 Ml Nebu INH 12/22/24 00:44 3 ml Q2HR PRN Administration SHORTNESS OF BREATH OR WHEEZE Benzocaine 0 dose 11/27/24 11:37 Benzocaine 20% (Hurricaine) [place] 1 Dose TOP 12/27/24 11:36 PRN PRN SORE THROAT Ambien Cr 12.5 Mg 0 ea 11/22/24 21:00 11/28/24 20:41 Tablet PO 12/22/24 20:59 1 tablet HS ZAK Administration Heparin Sodium (Porcine) 5,000 unit 11/28/24 21:00 11/29/24 08:32 Heparin Sod Inj 5000 Unit/Ml Vial SC 12/12/24 20:59 5,000 unit BID ZAK Administration Acetaminophen 1,000 mg in 100 mls @ 250 mls/hr 11/26/24 13:00 11/29/24 13:04 Ofirmev Inj IV 12/01/24 06:23 250 mls/hr Q6HR ZAK Administration Piperacillin Sod/Tazobactam 100 mls @ 25 mls/hr 11/26/24 22:00 11/29/24 13:04 Sod 4.5 gm/ Sodium Chloride IV 12/03/24 21:59 25 mls/hr Q8HR ZAK Administration Fat Emulsion Intravenous 500 mls @ 32 mls/hr 11/26/24 18:00 11/28/24 17:05 Intralipid 20% Iv IV 12/26/24 17:59 32 mls/hr TUTHSA@1800 ZAK Administration Sodium Phosphate 15 mmol/ 2,005 mls @ 39.507 mls/hr 11/28/24 18:00 11/28/24 17:06 Amino Acids/Electrolytes IV 11/29/24 17:59 39.507 mls/hr QDAY@1800 ZAK Administration Levothyroxine Sodium 125 mcg 11/22/24 06:00 11/29/24 05:41 Levothyroxine Sodium 125 Mcg Tablet PO 12/22/24 05:59 125 mcg ACBR ZAK Administration Lidocaine 1 patch 11/26/24 13:00 Lidocaine 5% 1 Patch TOP 12/26/24 12:59 UD PRN PAIN Protocol Lisinopril 20 mg 11/27/24 16:45 11/29/24 08:32 Lisinopril 20 Mg Tablet PO 12/27/24 16:44 20 mg QDAY ZAK Administration Methylprednisolone Sodium Succinate 4 mg 11/25/24 09:00 11/29/24 08:32 Methylprednisolone Sod Succ 40 Mg Vial IVP 12/02/24 08:59 4 mg QDAY ZAK Administration Protocol Ondansetron HCl 4 mg 11/22/24 00:51 11/27/24 04:13 Ondansetron Inj 2 Mg/Ml Inj 2 Ml IV 12/22/24 00:50 4 mg Q6H PRN Administration NAUSEA OR VOMITING Protocol Oxycodone HCl 10 mg 11/27/24 10:33 11/27/24 21:39 Oxycodone Hcl 5 Mg Ir Tab PO 12/02/24 10:32 10 mg Q4H PRN Administration PAIN SCALE 4-10(Mod-Sev Pantoprazole Sodium 40 mg 11/24/24 09:00 11/29/24 08:32 Pantoprazole Inj 40 Mg Vial IV 12/24/24 08:59 40 mg BID ZAK Administration Potassium Phos/Sodium Phos 1 packet 11/29/24 09:15 11/29/24 10:10 [facility] Mbdb 1 Packet (1.5 Gm) PO 12/29/24 09:14 1 packet BID ZAK Administration Spironolactone 25 mg 11/26/24 14:30 11/29/24 08:33 Spironolactone 25 Mg Tablet PO 12/26/24 14:29 25 mg BID ZAK Administration Plan Ms. 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 #Perforated gastrojejunostomy s/p repair, Gerson patch, washout, drain placement. Patient presented with intractable watery diarrhea for the past week. No blood no mucus. Recent antibiotic use and also recent travel to [place] where she was eating local food. Patient chronically on prednisone and monoclonal antibody upadacitinib for RA. On exam she has generalized abdominal pain tender to palpation in all quadrants, soft, mildly distended. History of Lynn-en-Y gastric bypass 20 years ago. CTAP showed pneumoperitoneum, air droplets in the wall of the colon, suspicious for ischemic bowel. General surgeon Dr. Thao was consulted, on 11/23/24 patient underwent repair of perforated gastrojejunostomy, Gerson patch, washout, drain placement without complications. On admission labs showed lactic acid 2.3, LDH 352, WBC 4.9. KUB did not show significant abnormalities. CT angio C/A/P was canceled due to worsening kidney function. In the ED patient received 4L normal saline IVF bolus, azithromycin and ceftriaxone IV x 1, on admission started with vancomycin, Zosyn and fidaxomicin. Patient passed swallow screen, started on full liquid diet by surgery. NG tube discontinued. Will continue TPN for now. Giardia, ova and parasites, H. pylori, norovirus negative. Stool calprotectin 1989. -Peptic ulcer diet, will advance as tolerated, pend surgery recommendations -IV acetaminophen 1000mg q6hr -Oxycodone 10 mg every 4 hours as needed for pain -GI Dr. Palacios consulted, Appreciate recommendations. -Infectious disease Dr. Forte, Appreciate recommendations. -general surgery following. -hold TPN #Pseudomonas PNA Sputum Gram stain positive for psudomonas on 11/26. Pt not experiencing fever, chest pain, SOB. WBC uptrending, afebrile. -zosyn 4.5 g every 8 hours for 7 days 11/26?12/03 #Hx of hypertension. Home medication lisinopril 20 Mg p.o. daily. No longer hypotensive but will continue to hold antihypertensives due to s/p surgery and underling PNA infection. Plan: -Home medication resumed #?Adrenal Insufficiency Patient noted to be on terminal operator steroid usage vs autoimmune etiology. History of rheumatoid arthritis and unknown etiology hypothyroidism. Last dose was several days prior. Blood pressure poorly responsive to IVF resusitation. Labs significant for Hyponatremia, Hyperkalemia, hypocalcemia and NAGMA consistent with AI. Plan: -IV Solu-Medrol 4 mg daily #Normocytic anemia. Hemoglobin noted to drop to 8.2 from 10.8, likely related from surgical procedure on 11/23. No signs of active bleeding noted on 11/24. Plan -Monitor with daily CBC. -Transfuse pRBC for hemoglobin < 7.0. #Hx of hypothyroidism. Unknown etiology, . Patient's home medication levothyroxine 125 mcg p.o. daily. Patient's last dose increase was 2 months ago Plan: -Resumed home levothyroxine #Hx of rheumatoid arthritis. Patient has long history of rheumatoid arthritis, underwent multiple treatments with methotrexate and other DMARDs, currently on prednisone 10 mg and monoclonal antibody upadacitinib for prolonged time. Plan: -upadacitinib on hold. -continue methylprednisolone 4 mg daily. FEN: Peptic ulcer diet DVT prophylaxis: Heparin GI prophylaxis: IV pantoprazole 40mg BID. Lines: Peripheral IV, wound VAC, LO drain CODE STATUS: Full code. Plan of care discussed with senior resident Dr. Tatum PGY?[address] Matthews. Marcus Norman MD PGY-1 Senior Resident Attestation: I discussed with and supervised the internal controls analyst physician involved in the care of this patient. I personally saw and examined the patient and discussed the assessment and plan with the entire medicine team, including my attending. I agree with the assessment and plan as documented above. Patient seen and examined this a.m. Patient is status post day 6 of the perforated gastrojejunostomy performed by Dr. Shepherd. Will continue IV antibiotics. Patient is on a good pain regimen. Patient seemed a little delirious this a.m. likely secondary to patient's Ambien use. We are still treating patient's Pseudomonas pneumonia with Zosyn and will run until December 03. Patient is tolerating p.o. intake we have DC'd the TPN. Patient is having regular bowel movement. And passing gas. - Patient's care was discussed with my attending physician. Sadi Tatum MD Internal Medicine PGY-3 Attending Provider Attestation/Addendum I have discussed and was present for the essential components of the history, physical examination, diagnosis, and treatment plan with the resident. I agree with the patient's care as documented by the resident and amended herein by me. Chet Matthews DO. Although this document has been carefully reviewed, there may still be some phonetic and other typographical errors. These errors are purely grammatical due to imperfections in the software program and should not be construed in any way to compromise the substance of the patient's medical care during this visit.
--- NOTE | 2024-11-29 13:57 | ESPR_ITS ---
Documentation for date of: 11/29/24 Subjective Subjective Interval history: Passing gas Had a bowel movement Exam Vital Signs Temp Pulse Resp BP Pulse Ox O2 Del Method O2 Flow Rate 98.4 F 100 17 178/98 H 94 L Room Air 1 11/29/24 11:57 11/29/24 12:00 11/29/24 11:57 11/29/24 11:57 11/29/24 11:57 11/29/24 07:39 11/26/24 06:29 FiO2 21 11/25/24 10:16 Objective Labs 11/30/24 05:00 11/30/24 05:00 Labs: Laboratory Results - last 24 hr 11/29/24 04:38 WBC 14.3 H RBC 2.73 L Hgb 8.7 L Hct 28.0 L MCV 103 H MCH 31.9 MCHC 31.1 RDW Std Deviation 52.8 H Plt Count 132 L Neut % (Auto) 74 Lymph % (Auto) 12 [place] % (Auto) 4 Eos % (Auto) 1 Baso % (Auto) 0 Neut # (Auto) 10.6 H Lymph # (Auto) 1.7 [place] # (Auto) 0.6 Eos # (Auto) 0.2 Baso # (Auto) 0.1 Immature Gran # (Auto) 1.11 H Absolute Nucleated RBC 0.32 H Immature Gran % 8 H Nucleated RBC % 2 H Sodium 142 Potassium 3.7 Chloride 107 Carbon Dioxide 26.4 Anion Gap 9 BUN 16 Creatinine 0.8 Estim Creat Clear Calc 102.1 eGFR > 60 BUN/Creatinine Ratio 20 Glucose 192 H Calculated Osmolality 289 Calcium 7.4 L Corrected Calcium 8.7 Phosphorus 1.9 L Magnesium 1.9 Total Bilirubin < 0.2 L AST 12 ALT 15 Alkaline Phosphatase 55 Total Protein 4.3 L Albumin 2.4 L Globulin 1.9 L Albumin/Globulin Ratio 1.3 Impressions Impression: # Status post exploratory laparotomy for perforated gastrojejunostomy doing well postoperatively Advance diet as tolerated ABG Interpretation ABG results: 11/22/24 11/23/24 11/23/24 17:58 02:09 04:07 ABG pH 7.25 L 7.22 L 7.26 L ABG pCO2 22 L 28 L 24 L ABG pO2 102 69 L D 94 D ABG HCO3 9 L* 12 L 11 L ABG O2 Saturation 97 89 L 95 ABG Base Excess -16 L -15 L -15 L 11/23/24 11/24/24 11/25/24 06:27 05:01 04:01 ABG pH 7.15 L* D 7.42 D 7.40 ABG pCO2 35 D 33 36 ABG pO2 355 H D 124 H D 92 D ABG HCO3 12 L 21 22 ABG O2 Saturation 100 H 99 H 97 ABG Base Excess -16 L -3 -2 Assessment & Plan A&P Narrative abx are empirical. 5 d of rx ok post operatively (stop it trial) presumptive peritonitis will f/u on Saturday as I will be away on saturday, ok to stop rx 5d after x lap given study data and repeat imaging if worsens. Time Spent With Patient Time: Total time spent is greater than 50% in coordination of care (as documented) at patient's floor/unit and/or counseling patient: Procedures Arterial Line Size (Gauge): 20
[2024-11-29] MEDS: AMBIEN 12.5 MG PO (18:35)
[2024-11-30] VITALS (10 sets, daily range): BP systolic 112–156; BP diastolic 78–94; PULSE 94–110; RESP 16–21; TEMP 36–36.2; O2SAT 94–97; BMI 42.7
[2024-11-30] MEDS: ACETAMINOPHEN IVPB 1,000 MG/100 ML VIAL 250 MG IV ×2 (00:17→06:01)
[2024-11-30] MEDS: LEVOTHYROXINE SODIUM 125 MCG TABLET PO (05:09)
[2024-11-30] MEDS: PIPER/TAZO INJ 4.5 GM in SODIUM CHLORIDE 0.9% 100 ML IV (05:12)
[2024-11-30 05:54] LABS: Basophils % (Auto) 0 % (0-2.5); Eosinophils # (Auto) 0.1 Thou/mm3 (0.0-0.5); Eosinophils % (Auto) 1 % (0-10); Hematocrit 25.1 % (36.0-46.0); Immature Granulocytes % (Auto) 5 % (0-0); Immature Granulocytes Auto 0.64 Thou/mm3 (0.00-0.00); Lymphocytes # (Auto) 1.6 Thou/mm3 (1.0-4.8); Lymphocytes % (Auto) 13 % (10-50); Mean Corpuscular HGB Conc 31.5 g/dl (31.0-37.0); Mean Corpuscular Hemoglobin 31.7 pg (25.0-35.0); Mean Corpuscular Volume 101 fL (80-100); Monocytes # (Auto) 0.6 Thou/mm3 (0.0-0.8); Monocytes % (Auto) 5 % (0-12); Neutrophils # (Auto) 9.8 Thou/mm3 (1.8-7.7); Neutrophils % (Auto) 76 % (37-80); Nucleated Red Blood Cell # 0.13 Thou/mm3 (0.00-0.00); Nucleated Red Blood Cell % 1 /100 WBC (0); Platelet Count 115 Thou/mm3 (140-440); Red Blood Count 2.49 Miln/mm3 (4.00-5.20); White Blood Count 12.8 Thou/mm3 (3.6-11.0)
[2024-11-30 05:56] LABS: Hemoglobin 7.9 g/dL (12.0-16.0)
[2024-11-30 06:20] LABS: Alanine Aminotransferase 13 U/L (10-49); Albumin, Serum 2.4 gm/dL (3.5-5.0); Albumin/Globulin Ratio 1.1 (1.2-2.2); Alkaline Phosphatase 54 U/L (46-116); Anion Gap 8 (7-16); Aspartate Amino Transferase 18 U/L (0-34); BUN/Creatinine Ratio 19 Ratio (12-20); Bilirubin,Total 0.2 mg/dL (0.3-1.2); Blood Urea Nitrogen 15 mg/dL (9-23); Calcium 7.5 mg/dL (8.3-10.6); Calcium (Corrected) 8.8 mg/dL (8.5-10.1); Carbon Dioxide 25.4 mMol/L (20.0-31.0); Chloride 108 mMol/L (98-107); Creatinine (Component) 0.8 mg/dL (0.6-1.3); Estimated Creatinine Clearance 100.7 mL/min (>60); Globulin 2.1 gm/dL (2.3-3.5); Glucose 89 mg/dL (74-106); Magnesium 1.9 mg/dL (1.6-2.6); Osmolality,Calculated 281 (275-295); Phosphorous 3.1 mg/dL (2.4-5.1); Potassium 4.3 mMol/L (3.4-5.1); Sodium 141 mMol/L (136-145); Total Protein 4.5 gm/dL (5.7-8.2); eGFR > 60 See Note
--- NOTE | 2024-11-30 09:11 | PD.IDPROG ---
Subjective Subjective Interval history: team prefers to target rare pseudomonas in resp cx with mostly mixed tanika. Exam Vital Signs Temp Pulse Resp BP Pulse Ox O2 Del Method O2 Flow Rate 97.0 F 102 H 18 112/78 96 Room Air 1 11/30/24 08:00 11/30/24 08:00 11/30/24 08:00 11/30/24 08:00 11/30/24 08:00 11/30/24 08:00 11/30/24 00:00 FiO2 21 11/25/24 10:16 Narrative Exam if no sx. why are you targetting a resp cx with iv rx? limited visit Objective - Internal Medicine Labs 11/30/24 05:00 11/30/24 05:00 Labs: Laboratory Results - last 24 hr 11/30/24 05:00 WBC 12.8 H RBC 2.49 L Hgb 7.9 L Hct 25.1 L MCV 101 H MCH 31.7 MCHC 31.5 RDW Std Deviation 50.0 H Plt Count 115 L Neut % (Auto) 76 Lymph % (Auto) 13 [place] % (Auto) 5 Eos % (Auto) 1 Baso % (Auto) 0 Neut # (Auto) 9.8 H Lymph # (Auto) 1.6 [place] # (Auto) 0.6 Eos # (Auto) 0.1 Baso # (Auto) 0.0 Immature Gran # (Auto) 0.64 H Absolute Nucleated RBC 0.13 H Immature Gran % 5 H Nucleated RBC % 1 H Sodium 141 Potassium 4.3 D Chloride 108 H Carbon Dioxide 25.4 Anion Gap 8 BUN 15 Creatinine 0.8 Estim Creat Clear Calc 100.7 eGFR > 60 BUN/Creatinine Ratio 19 Glucose 89 D Calculated Osmolality 281 Calcium 7.5 L Corrected Calcium 8.8 Phosphorus 3.1 Magnesium 1.9 Total Bilirubin 0.2 L AST 18 ALT 13 Alkaline Phosphatase 54 Total Protein 4.5 L Albumin 2.4 L Globulin 2.1 L Albumin/Globulin Ratio 1.1 L ABG Interpretation ABG results: 11/22/24 11/23/24 11/23/24 17:58 02:09 04:07 ABG pH 7.25 L 7.22 L 7.26 L ABG pCO2 22 L 28 L 24 L ABG pO2 102 69 L D 94 D ABG HCO3 9 L* 12 L 11 L ABG O2 Saturation 97 89 L 95 ABG Base Excess -16 L -15 L -15 L 11/23/24 11/24/24 11/25/24 06:27 05:01 04:01 ABG pH 7.15 L* D 7.42 D 7.40 ABG pCO2 35 D 33 36 ABG pO2 355 H D 124 H D 92 D ABG HCO3 12 L 21 22 ABG O2 Saturation 100 H 99 H 97 ABG Base Excess -16 L -3 -2 Assessment & Plan A&P Narrative abx appear to target a late resp cx, cxr noted so rx is for apparent pneumonia as a complication of surgery presumptive peritonitis targeting of rare pseudomonas in resp cx up to you. max duration of abx for resp infection is 7d. and organism is s. to quinolones that are the same iv and po. will will again prn Time Spent With Patient Time: Total time spent is greater than 50% in coordination of care (as documented) at patient's floor/unit and/or counseling patient:
[2024-11-30] MEDS: NAPH,KPH MBDB 1 PACKET (1.5 GM) PO ×2 (10:07→20:48)
[2024-11-30] MEDS: oxyCODONE HCL 5 MG IR TAB 10 MG PO (10:13)
[2024-11-30] MEDS: SPIRONOLACTONE 25 MG TABLET PO ×2 (10:13→20:48)
[2024-11-30] MEDS: Lisinopril 20 MG TABLET PO (10:13)
[2024-11-30] MEDS: PANTOPRAZOLE INJ 40 MG VIAL IV (10:14)
[2024-11-30] MEDS: HEPARIN SOD INJ 5000 UNIT/ML VIAL SC ×2 (10:33→21:05)
--- NOTE | 2024-11-30 12:05 | PD.SURPROG ---
Documentation for date of: 11/30/24 Subjective Subjective Brief History: 54F with rheumatoid arthritis on chronic prednisone, obesity presenting yesterday with diarrhea and abdominal pain. Pt had recently traveled to [place] and also took a z-natalie which completed 11/20, and had watery diarrhea. Today pt underwent CT AP with findings of pneumoperitoneum and droplets adjacent to colon, she is on two pressors which are being weaned PMH: RA, hypothyroidism PSHx: Gastric bypass surgery, appendectomy, abdominoplasty Meds: on prednisone for years, no antiplt or anticoagulation Allergies: Bactrim Social hx: Nonsmoker Narrative: Pain well controlled, reports occasional mild nausea but no vomiting, is tolerating PUD diet and has had BMs, LO output 80cc/24h, WBC 12 remaining afebrile Exam Vital Signs Temp Pulse Resp BP Pulse Ox O2 Del Method O2 Flow Rate 97.0 F 102 H 18 112/78 96 Room Air 1 11/30/24 08:00 11/30/24 10:13 11/30/24 08:00 11/30/24 10:13 11/30/24 08:00 11/30/24 08:00 11/30/24 00:00 FiO2 21 11/25/24 10:16 Constitutional Constitutional: no acute distress Routine Respiratory Exam Respiratory: Present no resp distress Routine Abdominal Exam Abdominal: Present soft, wound (midline wound with healthy subcutaneous fat, no surrounding erythema, no fluctuance or tenderness) and drain (LO with serosanguinous output); Absent tenderness or distended Results Results: Laboratory Laboratory results: results reviewed Assessment & Plan Plan 54F with RA chronically on prednisone, remote history of gastric bypass who initially presented with diarrhea, with subsequent findings of pneumoperitoneum on CT now s/p emergent laparotomy with repair of perforated gastrojejunostomy, washout and drain placement 11/23, recovering well with return of bowel function Transition to all PO meds DC planning with wound vac, LO in place Procedures Procedures Repair of perforated gastrojejunostomy, Gerson patch, washout, drain placement
--- NOTE | 2024-11-30 12:08 | PC.SS ---
Addendum entered by Aisha Callejas 11/30/24 15:59: SS sent over PASSR and PT notes through [employer]. Radha informed SS they will be submitting for auth. Addendum entered by Aisha Callejas 11/30/24 15:01: SS met with patient in regards to discharge plan. Patient would like to discharge to [facility]. SS contacted Kristin and she informed SS she would see with her DON if they are able to accept patient. Original Note: SS met with patient at bedside to discuss discharge plan. Patient reports she would like to discharge to SNF. SS submitted SNF inquiry through [employer]. SS will follow up with patient in regards to chosen SNF.
[2024-11-30] MEDS: CIPROFLOXACIN HCL 250 MG TABLET 500 MG PO ×2 (13:08→20:49)
[2024-11-30] MEDS: metroNIDAZOLE 250 MG TABLET 500 MG PO ×2 (13:08→21:05)
--- NOTE | 2024-11-30 16:06 | PD.IMPROG ---
Documentation for date of: 11/30/24 Subjective Subjective Interval history: Passing flatus Exam Vital Signs Temp Pulse Resp BP Pulse Ox O2 Del Method O2 Flow Rate 97.0 F 105 H 18 156/94 H 96 Room Air 1 11/30/24 12:00 11/30/24 12:00 11/30/24 12:00 11/30/24 12:00 11/30/24 12:00 11/30/24 12:00 11/30/24 00:00 FiO2 21 11/25/24 10:16 Objective Labs 11/30/24 05:00 11/30/24 05:00 Labs: Laboratory Results - last 24 hr 11/30/24 05:00 WBC 12.8 H RBC 2.49 L Hgb 7.9 L Hct 25.1 L MCV 101 H MCH 31.7 MCHC 31.5 RDW Std Deviation 50.0 H Plt Count 115 L Neut % (Auto) 76 Lymph % (Auto) 13 [place] % (Auto) 5 Eos % (Auto) 1 Baso % (Auto) 0 Neut # (Auto) 9.8 H Lymph # (Auto) 1.6 [place] # (Auto) 0.6 Eos # (Auto) 0.1 Baso # (Auto) 0.0 Immature Gran # (Auto) 0.64 H Absolute Nucleated RBC 0.13 H Immature Gran % 5 H Nucleated RBC % 1 H Sodium 141 Potassium 4.3 D Chloride 108 H Carbon Dioxide 25.4 Anion Gap 8 BUN 15 Creatinine 0.8 Estim Creat Clear Calc 100.7 eGFR > 60 BUN/Creatinine Ratio 19 Glucose 89 D Calculated Osmolality 281 Calcium 7.5 L Corrected Calcium 8.8 Phosphorus 3.1 Magnesium 1.9 Total Bilirubin 0.2 L AST 18 ALT 13 Alkaline Phosphatase 54 Total Protein 4.5 L Albumin 2.4 L Globulin 2.1 L Albumin/Globulin Ratio 1.1 L Impressions Impression: # Status post surgical repair of a perforated gastrojejunostomy Advance diet as tolerated ABG Interpretation ABG results: 11/22/24 11/23/24 11/23/24 17:58 02:09 04:07 ABG pH 7.25 L 7.22 L 7.26 L ABG pCO2 22 L 28 L 24 L ABG pO2 102 69 L D 94 D ABG HCO3 9 L* 12 L 11 L ABG O2 Saturation 97 89 L 95 ABG Base Excess -16 L -15 L -15 L 11/23/24 11/24/24 11/25/24 06:27 05:01 04:01 ABG pH 7.15 L* D 7.42 D 7.40 ABG pCO2 35 D 33 36 ABG pO2 355 H D 124 H D 92 D ABG HCO3 12 L 21 22 ABG O2 Saturation 100 H 99 H 97 ABG Base Excess -16 L -3 -2 Assessment & Plan A&P Narrative abx appear to target a late resp cx, cxr noted so rx is for apparent pneumonia as a complication of surgery presumptive peritonitis targeting of rare pseudomonas in resp cx up to you. max duration of abx for resp infection is 7d. and organism is s. to quinolones that are the same iv and po. will will again prn Time Spent With Patient Time: Total time spent is greater than 50% in coordination of care (as documented) at patient's floor/unit and/or counseling patient: Procedures Arterial Line Size (Gauge): 20
--- NOTE | 2024-11-30 16:09 | ESPR_ITS ---
<Statement entered by Julio Nichols MD - 11/30/24 16:40> Patient was seen and examined at the bedside. Patient reported that she feels better and has been sleeping well. She is tolerating her diet without nausea or vomiting. Blood pressure this morning was normal and tachycardia improved. Labs revealed WBC count improvement with hemoglobin stable. Kidney functions unremarkable. Patient is off TPN and is tolerating her diet. Will plan to escalate antibiotic from Zosyn to p.o. antibiotics ciprofloxacin and Flagyl for 5 more days to complete course. Patient is currently pending on SNF insurance authorization and will be likely discharged tomorrow morning. All her home medications were reconciled. All labs and orders were reviewed. I saw and examined the patient, and I agree with current management stated by Dr Emerson MD,PGY1. Plan of care was discussed with the attending physician and resident physician. Disclaimer: Despite multiple revisions, due to the dictation software being used, the document bellow may not be free of grammatical errors including phonetic/typographic errors. However, this does not deter from our commitment to providing health care in the patient's best interest in mind. Dr. Simone MD, PGY 2 Documentation for date of: 11/30/24 Subjective Subjective Interval history: No overnight events. Patient seen and examined resting bed. Patient reports overall feeling better, still notes abdominal pain and sore throat. Notes general weakness but feels strength is improving. Denies fevers, chills, shortness of breath, nausea, vomiting. Transition to p.o. medications, plan for DC pending insurance authorization for SNF. Exam Vital Signs Temp Pulse Resp BP Pulse Ox O2 Del Method O2 Flow Rate 97.0 F 105 H 18 156/94 H 96 Room Air 1 11/30/24 12:00 11/30/24 12:00 11/30/24 12:00 11/30/24 12:00 11/30/24 12:11/30/24 12:11/30/24 00:00 FiO2 21 11/25/24 10:16 Narrative Exam Gen: Well-developed and well-nourished obese female. Soft, scratchy voice. HEENT: NCAT, PERRLA, EOMI, MMM, anicteric conjunctivae. CVS: normal S1 and S2. Sinus tachycardia. No M/R/G. Resp: Decreased breath sounds B/L due to body habitus. No rhonchi, rales, crackles or wheezing. Abd: soft, mildly distended, s/p laparoscopy with midline abdominal scar, appears clean, wound VAC and LO drain in place. BS+ in all 4 quadrants. Diffuse mild tenderness. MSK: Nonpitting edema BLE and BUE. Multiple ecchymosis dorsal surface BUE. Neuro: grossly intact Objective Labs 11/30/24 05:00 11/30/24 05:00 Labs: Laboratory Results - last 24 hr 11/30/24 05:00 WBC 12.8 H RBC 2.49 L Hgb 7.9 L Hct 25.1 L MCV 101 H MCH 31.7 MCHC 31.5 RDW Std Deviation 50.0 H Plt Count 115 L Neut % (Auto) 76 Lymph % (Auto) 13 Clayton % (Auto) 5 Eos % (Auto) 1 Baso % (Auto) 0 Neut # (Auto) 9.8 H Lymph # (Auto) 1.6 Clayton # (Auto) 0.6 Eos # (Auto) 0.1 Baso # (Auto) 0.0 Immature Gran # (Auto) 0.64 H Absolute Nucleated RBC 0.13 H Immature Gran % 5 H Nucleated RBC % 1 H Sodium 141 Potassium 4.3 D Chloride 108 H Carbon Dioxide 25.4 Anion Gap 8 BUN 15 Creatinine 0.8 Estim Creat Clear Calc 100.7 eGFR > 60 BUN/Creatinine Ratio 19 Glucose 89 D Calculated Osmolality 281 Calcium 7.5 L Corrected Calcium 8.8 Phosphorus 3.1 Magnesium 1.9 Total Bilirubin 0.2 L AST 18 ALT 13 Alkaline Phosphatase 54 Total Protein 4.5 L Albumin 2.4 L Globulin 2.1 L Albumin/Globulin Ratio 1.1 L ABG Interpretation ABG results: 11/22/24 11/23/24 11/23/24 17:58 02:09 04:07 ABG pH 7.25 L 7.22 L 7.26 L ABG pCO2 22 L 28 L 24 L ABG pO2 102 69 L D 94 D ABG HCO3 9 L* 12 L 11 L ABG O2 Saturation 97 89 L 95 ABG Base Excess -16 L -15 L -15 L 11/23/24 11/24/24 11/25/24 06:27 05:01 04:01 ABG pH 7.15 L* D 7.42 D 7.40 ABG pCO2 35 D 33 36 ABG pO2 355 H D 124 H D 92 D ABG HCO3 12 L 21 22 ABG O2 Saturation 100 H 99 H 97 ABG Base Excess -16 L -3 -2 Quality Measures Quality Measures VTE therapy (Heparin) Assessment & Plan Assessment Current Active Medications: Generic Name Dose Route Start Last Admin Trade Name Freq PRN Reason Stop Dose Admin Acetaminophen 650 mg 11/30/24 11:31 Acetaminophen 325 Mg Tablet PO 12/30/24 11:30 Q6H PRN PAIN SCALE 1-3 (mild Al Hydrox/Mg Hydrox/Simethicone 30 ml 11/22/24 00:53 Mg Hyd/Al Hyd/Sandie (Maalox Reg) Susp 30 Ml Udc PO 12/22/24 00:52 Q4HR PRN UPSET STOMACH/INDIGESTION Albuterol/Ipratropium 3 ml 11/22/24 00:45 11/23/24 02:09 Albuterol/Ipratropium (Duoneb) Rt Marichuy 3 Ml Nebu INH 12/22/24 00:44 3 ml Q2HR PRN Administration SHORTNESS OF BREATH OR WHEEZE Benzocaine 0 dose 11/27/24 11:37 Benzocaine 20% (Hurricaine) [place] 1 Dose TOP 12/27/24 11:36 PRN PRN SORE THROAT Ciprofloxacin 500 mg 11/30/24 11:45 11/30/24 13:08 Ciprofloxacin Hcl 250 Mg Tablet PO 12/07/24 11:44 500 mg BID ZAK Administration Ambien Cr 12.5 Mg 0 ea 11/29/24 19:00 11/29/24 18:35 Tablet PO 12/29/24 18:59 1 tablet QDAY@1900 ZAK Administration Heparin Sodium (Porcine) 5,000 unit 11/28/24 21:00 11/30/24 10:33 Heparin Sod Inj 5000 Unit/Ml Vial SC 12/12/24 20:59 5,000 unit BID ZAK Administration Levothyroxine Sodium 125 mcg 11/22/24 06:00 11/30/24 05:09 Levothyroxine Sodium 125 Mcg Tablet PO 12/22/24 05:59 125 mcg ACBR ZAK Administration Lidocaine 1 patch 11/26/24 13:00 Lidocaine 5% 1 Patch TOP 12/26/24 12:59 UD PRN PAIN Protocol Lisinopril 20 mg 11/27/24 16:45 11/30/24 10:13 Lisinopril 20 Mg Tablet PO 12/27/24 16:44 20 mg QDAY ZAK Administration Metronidazole 500 mg 11/30/24 14:00 11/30/24 13:08 Metronidazole 250 Mg Tablet PO 12/07/24 13:59 500 mg TID ZAK Administration Ondansetron HCl 4 mg 11/22/24 00:51 11/27/24 04:13 Ondansetron Inj 2 Mg/Ml Inj 2 Ml IV 12/22/24 00:50 4 mg Q6H PRN Administration NAUSEA OR VOMITING Protocol Oxycodone HCl 10 mg 11/27/24 10:33 11/30/24 10:13 Oxycodone Hcl 5 Mg Ir Tab PO 12/02/24 10:32 10 mg Q4H PRN Administration PAIN SCALE 4-10(Mod-Sev Pantoprazole Sodium 40 mg 11/30/24 21:00 Pantoprazole 40 Mg Tablet PO 12/30/24 20:59 BID ZKA Potassium Phos/Sodium Phos 1 packet 11/29/24 09:15 11/30/24 10:07 Naph,[facility] 1 Packet (1.5 Gm) PO 12/29/24 09:14 1 packet BID ZAK Administration Prednisone 5 mg 12/01/24 09:00 Prednisone 5 Mg Tablet PO 12/31/24 08:59 QAM ZAK Spironolactone 25 mg 11/26/24 14:30 11/30/24 10:13 Spironolactone 25 Mg Tablet PO 12/26/24 14:29 25 mg BID ZAK Administration Plan Ms. 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 #Perforated gastrojejunostomy s/p repair, Gerson patch, washout, drain placement. Patient presented with intractable watery diarrhea for the past week. No blood no mucus. Recent antibiotic use and also recent travel to [place] where she was eating local food. Patient chronically on prednisone and monoclonal antibody upadacitinib for RA. On exam she has generalized abdominal pain tender to palpation in all quadrants, soft, mildly distended. History of Lynn-en-Y gastric bypass 20 years ago. CTAP showed pneumoperitoneum, air droplets in the wall of the colon, suspicious for ischemic bowel. General surgeon Dr. Thao was consulted, on 11/23/24 patient underwent repair of perforated gastrojejunostomy, Gerson patch, washout, drain placement without complications. On admission labs showed lactic acid 2.3, LDH 352, WBC 4.9. KUB did not show significant abnormalities. CT angio C/A/P was canceled due to worsening kidney function. In the ED patient received 4L normal saline IVF bolus, azithromycin and ceftriaxone IV x 1, on admission started with vancomycin, Zosyn and fidaxomicin. Patient passed swallow screen, started on full liquid diet by surgery. NG tube discontinued. Will continue TPN for now. Giardia, ova and parasites, H. pylori, norovirus negative. Stool calprotectin 1989. Patient transition to oral diet, tolerating well. TPN discontinued. -Peptic ulcer diet, will advance as tolerated, pend surgery recommendations -IV acetaminophen 1000mg q6hr -Oxycodone 10 mg every 4 hours as needed for pain -GI Dr. Palacios consulted, Appreciate recommendations. -Infectious disease Dr. Forte, Appreciate recommendations. -general surgery following. #Pseudomonas PNA Sputum Gram stain positive for psudomonas on 11/26. Pt not experiencing fever, chest pain, SOB. WBC uptrending, afebrile. -zosyn 4.5 g every 8 hours for 7 days 11/26?11/30 -Transition to p.o. antibiotics: Flagyl and Cipro, 11/30?12/03 #Hx of hypertension. Home medication lisinopril 20 Mg p.o. daily. No longer hypotensive but will continue to hold antihypertensives due to s/p surgery and underling PNA infection. 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 History of rheumatoid arthritis and unknown etiology hypothyroidism. Last dose was several days prior. Blood pressure poorly responsive to IVF resusitation. Labs significant for Hyponatremia, Hyperkalemia, hypocalcemia and NAGMA consistent with AI. -IV Solu-Medrol 4 mg daily #Normocytic anemia. Hemoglobin noted to drop to 8.2 from 10.8, likely related from surgical procedure on 11/23. No signs of active bleeding noted on 11/24. -Monitor with daily CBC. -Transfuse pRBC for hemoglobin < 7.0. #Hx of hypothyroidism. Unknown etiology, . Patient's home medication levothyroxine 125 mcg p.o. daily. Patient's last dose increase was 2 months ago Plan: -Resumed home levothyroxine #Hx of rheumatoid arthritis. Patient has long history of rheumatoid arthritis, underwent multiple treatments with methotrexate and other DMARDs, currently on prednisone 10 mg and monoclonal antibody upadacitinib for prolonged time. Plan: -upadacitinib on hold. -continue methylprednisolone 4 mg daily. FEN: Peptic ulcer diet DVT prophylaxis: Heparin GI prophylaxis: IV pantoprazole 40mg BID. Lines: Peripheral IV, wound VAC, LO drain CODE STATUS: Full code. Plan of care discussed with senior resident Dr. Nichols PGY-[address] Matthews. Marcus Norman MD PGY-1 Senior Resident Attestation: I discussed with and supervised the technology development intern physician involved in the care of this patient. I personally saw and examined the patient and discussed the assessment and plan with the entire medicine team, including my attending. I agree with the assessment and plan as documented above. Patient seen and examined this a.m. Patient is status post day 6 of the perforated gastrojejunostomy performed by Dr. Shepherd. Will continue IV antibiotics. Patient is on a good pain regimen. Patient seemed a little delirious this a.m. likely secondary to patient's Ambien use. We are still treating patient's Pseudomonas pneumonia with Zosyn and will run until December 03. Patient is tolerating p.o. intake we have DC'd the TPN. Patient is having regular bowel movement. And passing gas. - Patient's care was discussed with my attending physician. Sadi Tatum MD Internal Medicine PGY-3 Attending Provider Attestation/Addendum I have discussed and was present for the essential components of the history, physical examination, diagnosis, and treatment plan with the resident. I agree with the patient's care as documented by the resident and amended herein by me. Chet Matthews DO.
--- NOTE | 2024-11-30 16:16 | PC.SS ---
SS follow up note; SS was contacted by Sagrario from [facility] and she informed SS that patient has a deductible of $500 and after 10 days it's 10% and after 11 days it's 20%. SS updated Radha from [facility]. She informed SS that it's the same for [facility]. SS met with patient at bedside to update her and she requested for SS to follow up with her tomorrow in regards to discharge plan.
[2024-11-30 19:51] LABS: Hepatitis A Antibody IgM Non Reactive (Non React); Hepatitis B Core Antibody IgM Non Reactive (Non React); Hepatitis B Surface Antigen Non Reactive (Non React); Hepatitis C Antibody Non Reactive (Non React)
[2024-11-30] MEDS: PANTOPRAZOLE 40 MG TABLET PO (20:49)
[2024-11-30] MEDS: AMBIEN 12.5 MG PO (20:50)
--- NOTE | 2024-11-30 21:11 | PC.NURSE ---
plt 115, Dr. Skelton was made aware about pt's low plt count. Okay per Dr. Skelton to give heaprin inj.
[2024-12-01] VITALS (15 sets, daily range): BP systolic 115–158; BP diastolic 75–102; PULSE 103–124; RESP 16–19; TEMP 36.1–36.6; O2SAT 95–97; BMI 42.7
[2024-12-01] MEDS: oxyCODONE HCL 5 MG IR TAB 10 MG PO ×2 (04:12→13:36)
[2024-12-01] MEDS: metroNIDAZOLE 250 MG TABLET 500 MG PO (05:15)
[2024-12-01] MEDS: LEVOTHYROXINE SODIUM 125 MCG TABLET PO (05:15)
[2024-12-01 06:03] LABS: Basophils % (Auto) 0 % (0-2.5); Eosinophils # (Auto) 0.1 Thou/mm3 (0.0-0.5); Eosinophils % (Auto) 0 % (0-10); Hematocrit 26.2 % (36.0-46.0); Immature Granulocytes % (Auto) 3 % (0-0); Immature Granulocytes Auto 0.59 Thou/mm3 (0.00-0.00); Lymphocytes # (Auto) 1.8 Thou/mm3 (1.0-4.8); Lymphocytes % (Auto) 9 % (10-50); Mean Corpuscular HGB Conc 32.1 g/dl (31.0-37.0); Mean Corpuscular Hemoglobin 32.2 pg (25.0-35.0); Mean Corpuscular Volume 100 fL (80-100); Monocytes % (Auto) 5 % (0-12); Neutrophils # (Auto) 15.9 Thou/mm3 (1.8-7.7); Neutrophils % (Auto) 82 % (37-80); Nucleated Red Blood Cell # 0.12 Thou/mm3 (0.00-0.00); Nucleated Red Blood Cell % 1 /100 WBC (0); Platelet Count 156 Thou/mm3 (140-440); RDW Standard Deviation 49.4 fL (36.4-46.3); Red Blood Count 2.61 Miln/mm3 (4.00-5.20); White Blood Count 19.3 Thou/mm3 (3.6-11.0)
[2024-12-01 06:23] LABS: Hemoglobin 8.4 g/dL (12.0-16.0)
[2024-12-01 06:50] LABS: Alanine Aminotransferase 15 U/L (10-49); Albumin, Serum 2.8 gm/dL (3.5-5.0); Albumin/Globulin Ratio 1.3 (1.2-2.2); Alkaline Phosphatase 55 U/L (46-116); Anion Gap 11 (7-16); Aspartate Amino Transferase 20 U/L (0-34); BUN/Creatinine Ratio 19 Ratio (12-20); Bilirubin,Total 0.3 mg/dL (0.3-1.2); Blood Urea Nitrogen 15 mg/dL (9-23); Carbon Dioxide 23.5 mMol/L (20.0-31.0); Chloride 103 mMol/L (98-107); Creatinine (Component) 0.8 mg/dL (0.6-1.3); Estimated Creatinine Clearance 100.7 mL/min (>60); Globulin 2.2 gm/dL (2.3-3.5); Glucose 93 mg/dL (74-106); Magnesium 1.7 mg/dL (1.6-2.6); Osmolality,Calculated 274 (275-295); Phosphorous 2.7 mg/dL (2.4-5.1); Sodium 137 mMol/L (136-145); eGFR > 60 See Note
--- NOTE | 2024-12-01 08:20 | XR_ITS ---
Examination: CT chest with intravenous contrast CT abdomen with intravenous contrast CT pelvis with intravenous contrast 2-D coronal and sagittal reconstructions Time of exam: December 01, 20241999 hrs. Comparison November 22, 2024 Indications: Leukocytosis intractable diarrhea 2 weeks CTDI: vol (mGy) : 19.4 DLP: (mGycm): 1389 Technique: Multiple axial images of the chest, abdomen and pelvis with intravenous contrast, 3.0 mm slice thickness. Images obtained post intravenous injection Isovue 370 60 cc 2-D sagittal coronal reconstructions Low dose protocols, automated exposure control, adjustment MA KV according to patient size is iterative reconstruction techniques Findings: No thoracic aortic aneurysm dilatation Pulmonary artery segments are not enlarged Parenchymal disease in the right upper lobe and to a lesser extent left upper lobe consistent with pneumonia Atelectasis left lower lobe with moderate left pleural effusion Cirrhosis, liver irregular in contour Fluid with air densities beneath the left hemidiaphragm and surrounding the spleen most consistent with subphrenic abscess Gastric sutures. No hydronephrosis Peritoneal dialysis catheter No bowel obstruction No diverticulitis Mild free fluid in the pelvis Left pelvic abscess, axial image 264 5.8 cm Air in the urinary bladder Impression: Bilateral upper lobe pneumonia Moderate left pleural effusion Cirrhosis Left subphrenic abscess, amenable to CT-guided percutaneous catheter drainage Left pelvic abscess 5.8 cm, also amenable to catheter drainage
--- NOTE | 2024-12-01 09:21 | PC.SS ---
SS met with patient and patient's at bedside to discuss payment for [facility]. Patient and agreeable to have patient discharge to [facility] and are agreeable to pay the $500 deductible. SS contacted Radha from [facility] and she informed SS she will order Wound Vac for patient and submit for auth. Radha will also contact in regards to payment. Patient at the time is not medically stable for discharge. SS will stand by for further needs.
[2024-12-01] MEDS: Lisinopril 20 MG TABLET PO (09:41)
[2024-12-01 09:42] LABS: Basophils # (Auto) 0.1 Thou/mm3 (0.0-0.2); Basophils % (Auto) 0 % (0-2.5); Eosinophils # (Auto) 0.1 Thou/mm3 (0.0-0.5); Eosinophils % (Auto) 0 % (0-10); Hematocrit 28.7 % (36.0-46.0); Hemoglobin 8.9 g/dL (12.0-16.0); Immature Granulocytes % (Auto) 3 % (0-0); Immature Granulocytes Auto 0.67 Thou/mm3 (0.00-0.00); Lymphocytes # (Auto) 1.8 Thou/mm3 (1.0-4.8); Lymphocytes % (Auto) 8 % (10-50); Mean Corpuscular Hemoglobin 32.1 pg (25.0-35.0); Mean Corpuscular Volume 104 fL (80-100); Monocytes # (Auto) 1.2 Thou/mm3 (0.0-0.8); Monocytes % (Auto) 5 % (0-12); Neutrophils # (Auto) 18.5 Thou/mm3 (1.8-7.7); Neutrophils % (Auto) 83 % (37-80); Nucleated Red Blood Cell # 0.21 Thou/mm3 (0.00-0.00); Nucleated Red Blood Cell % 1 /100 WBC (0); Platelet Count 175 Thou/mm3 (140-440); RDW Standard Deviation 50.9 fL (36.4-46.3); Red Blood Count 2.77 Miln/mm3 (4.00-5.20); White Blood Count 22.3 Thou/mm3 (3.6-11.0)
[2024-12-01] MEDS: PANTOPRAZOLE 40 MG TABLET PO ×2 (09:42→21:24)
[2024-12-01] MEDS: predniSONE 5 MG TABLET PO (09:42)
[2024-12-01] MEDS: NAPH,KPH MBDB 1 PACKET (1.5 GM) PO (09:42)
[2024-12-01] MEDS: HEPARIN SOD INJ 5000 UNIT/ML VIAL SC ×2 (09:42→21:30)
[2024-12-01] MEDS: SPIRONOLACTONE 25 MG TABLET PO (09:42)
[2024-12-01] MEDS: Magnesium Sulfate 4 GM Ivpb 4 GM/50 ML BAG IV (10:01)
[2024-12-01] MEDS: PIPER/TAZO INJ 4.5 GM in SODIUM CHLORIDE 0.9% 100 ML IV ×2 (13:34→21:29)
--- NOTE | 2024-12-01 13:35 | ESPR_ITS ---
Documentation for date of: 12/01/24 Subjective Subjective Brief History: 54F with rheumatoid arthritis on chronic prednisone, obesity presenting yesterday with diarrhea and abdominal pain. Pt had recently traveled to [place] and also took a z-natalie which completed 1, and had watery diarrhea. Today pt underwent CT AP with findings of pneumoperitoneum and droplets adjacent to colon, she is on two pressors which are being weaned PMH: RA, hypothyroidism PSHx: Gastric bypass surgery, appendectomy, abdominoplasty Meds: on prednisone for years, no antiplt or anticoagulation Allergies: Bactrim Social hx: Nonsmoker Narrative: Patient reports feeling well with minimal pain, no nausea, tolerating diet and had bowel movement. She remains afebrile however WBC was 19 this morning, 22 on repeat. LO had 220 cc in the previous 24 hours but so far today has only had 20 cc output Exam Vital Signs Temp Pulse Resp BP Pulse Ox O2 Del Method O2 Flow Rate 97.8 F 124 H 18 120/75 96 Room Air 1 12/01/24 12:12/01/24 12:12/01/24 12:12/01/24 12:12/01/24 12:12/01/24 12:12/01/24 12:00 FiO2 21 11/25/24 10:16 Constitutional Constitutional: no acute distress Routine Respiratory Exam Respiratory: Present no resp distress Routine Abdominal Exam Abdominal: Present soft, wound (Midline wound with VAC in place to suction, no drainage) and drain (LO with serous output); Absent tenderness or distended Results Results: Laboratory Laboratory results: results reviewed Assessment & Plan Plan 54F with RA chronically on prednisone, remote history of gastric bypass who initially presented with diarrhea, with subsequent findings of pneumoperitoneum on CT now s/p emergent laparotomy with repair of perforated gastrojejunostomy, washout and drain placement 11/23, recovering well with return of bowel function, now with leukocytosis CT chest abdomen pelvis Pain control as needed Diet as tolerated Procedures Procedures Repair of perforated gastrojejunostomy, Gerson patch, washout, drain placement
--- NOTE | 2024-12-01 13:41 | ESPR_ITS ---
<Statement entered by Julio Nichols MD - 12/01/24 13:49> Patient was seen and examined at the bedside this morning. She reported to have mild abdominal discomfort however had no fever spikes overnight. Labs including CBC showed significant elevation of WBCs. Blood pressure was mildly elevated. Hemoglobin was stable. LO drain showed output more than 50 cc. Surgeon recommended to order a CT chest and pelvis to evaluate for infection. Repeat CBC showed white count 22.3. Urine output 2.5 L with negative balance of 2.0 L. We restarted Zosyn and holding ciprofloxacin and Flagyl. Will likely evaluate and see how her imaging shows. All labs and orders were reviewed. I saw and examined the patient, and I agree with current management stated by Dr Emerson MD,PGY1. Plan of care was discussed with the attending physician and resident physician. Disclaimer: Despite multiple revisions, due to the dictation software being used, the document bellow may not be free of grammatical errors including phonetic/typographic errors. However, this does not deter from our commitment to providing health care in the patient's best interest in mind. Dr. Simone MD, PGY 2 Documentation for date of: 12/01/24 Subjective Subjective Interval history: No overnight events. Patient seen and examined at bedside. Patient resting comfortably, reports increased sore throat, otherwise feels minimal subjective changes. Still notes significant weakness, abdominal discomfort. Denies fevers, chills, shortness of breath, increased abdominal pain. Patient had significant increase in WBCs, repeat CBC confirmed. Patient afebrile. CT A/P A/P with contrast ordered. Antibiotics changed back to Zosyn. LO drain still having significant drainage: 145 mL x 24 hours prior Exam Vital Signs Temp Pulse Resp BP Pulse Ox O2 Del Method O2 Flow Rate 97.8 F 124 H 18 120/75 96 Room Air 1 12/01/24 12:00 12/01/24 12:12/01/24 12:12/01/24 12:12/01/24 12:12/01/24 12:12/01/24 12:00 FiO2 21 11/25/24 10:16 Narrative Exam Gen: Well-developed and well-nourished obese female. Soft, scratchy voice. HEENT: NCAT, PERRLA, EOMI, MMM, anicteric conjunctivae. CVS: normal S1 and S2. Sinus tachycardia. No M/R/G. Resp: Decreased breath sounds B/L due to body habitus. No rhonchi, rales, crackles or wheezing. Abd: soft, mildly distended, s/p laparoscopy with midline abdominal scar, appears clean, wound VAC and LO drain in place. BS+ in all 4 quadrants. Diffuse mild tenderness, unchanged. MSK: Nonpitting edema BLE and BUE. Multiple ecchymosis dorsal surface BUE. Neuro: grossly intact Objective Labs 12/01/24 09:24 12/01/24 05:24 Labs: Laboratory Results - last 24 hr 11/30/24 12/01/24 12/01/24 05:00 05:24 09:24 WBC 19.3 H D 22.3 H RBC 2.61 L 2.77 L Hgb 8.4 L 8.9 L Hct 26.2 L 28.7 L MCV 100 104 H MCH 32.2 32.1 MCHC 32.1 31.0 RDW Std Deviation 49.4 H 50.9 H Plt Count 156 D 175 Neut % (Auto) 82 H 83 H Lymph % (Auto) 9 L 8 L [place] % (Auto) 5 5 Eos % (Auto) 0 0 Baso % (Auto) 0 0 Neut # (Auto) 15.9 H 18.5 H Lymph # (Auto) 1.8 1.8 [place] # (Auto) 1.0 H 1.2 H Eos # (Auto) 0.1 0.1 Baso # (Auto) 0.0 0.1 Immature Gran # (Auto) 0.59 H 0.67 H Absolute Nucleated RBC 0.12 H 0.21 H Immature Gran % 3 H 3 H Nucleated RBC % 1 H 1 H Sodium 137 Potassium 4.0 Chloride 103 Carbon Dioxide 23.5 Anion Gap 11 BUN 15 Creatinine 0.8 Estim Creat Clear Calc 100.7 eGFR > 60 BUN/Creatinine Ratio 19 Glucose 93 Calculated Osmolality 274 L Calcium 8.0 L Corrected Calcium 9.0 Phosphorus 2.7 Magnesium 1.7 Total Bilirubin 0.3 AST 20 ALT 15 Alkaline Phosphatase 55 Total Protein 5.0 L Albumin 2.8 L Globulin 2.2 L Albumin/Globulin Ratio 1.3 Hepatitis A IgM Ab Non Reactive Hep Bs Antigen Non Reactive Hep B Core IgM Ab Non Reactive Hepatitis C Antibody Non Reactive ABG Interpretation ABG results: 11/22/24 11/23/24 11/23/24 17:58 02:09 04:07 ABG pH 7.25 L 7.22 L 7.26 L ABG pCO2 22 L 28 L 24 L ABG pO2 102 69 L D 94 D ABG HCO3 9 L* 12 L 11 L ABG O2 Saturation 97 89 L 95 ABG Base Excess -16 L -15 L -15 L 11/23/24 11/24/24 11/25/24 06:27 05:01 04:01 ABG pH 7.15 L* D 7.42 D 7.40 ABG pCO2 35 D 33 36 ABG pO2 355 H D 124 H D 92 D ABG HCO3 12 L 21 22 ABG O2 Saturation 100 H 99 H 97 ABG Base Excess -16 L -3 -2 Quality Measures Quality Measures VTE therapy (Heparin) Assessment & Plan Assessment Current Active Medications: Generic Name Dose Route Start Last Admin Trade Name Freq PRN Reason Stop Dose Admin Acetaminophen 650 mg 11/30/24 11:31 Acetaminophen 325 Mg Tablet PO 12/30/24 11:30 Q6H PRN PAIN SCALE 1-3 (mild Al Hydrox/Mg Hydrox/Simethicone 30 ml 11/22/24 00:53 Mg Hyd/Al Hyd/Sandie (Maalox Reg) Susp 30 Ml Udc PO 12/22/24 00:52 Q4HR PRN UPSET STOMACH/INDIGESTION Albuterol/Ipratropium 3 ml 11/22/24 00:45 11/23/24 02:09 Albuterol/Ipratropium (Duoneb) Rt Marichuy 3 Ml Nebu INH 12/22/24 00:44 3 ml Q2HR PRN Administration SHORTNESS OF BREATH OR WHEEZE Benzocaine 0 dose 11/27/24 11:37 Benzocaine 20% (Hurricaine) Lamont 1 Dose TOP 12/27/24 11:36 PRN PRN SORE THROAT Ciprofloxacin 500 mg 11/30/24 11:45 11/30/24 20:49 Ciprofloxacin Hcl 250 Mg Tablet PO 12/07/24 11:44 500 mg BID ZAK Administration Ambien Cr 12.5 Mg 0 ea 11/30/24 21:00 11/30/24 20:50 Tablet PO 12/30/24 20:59 1 tablet HS ZAK Administration Heparin Sodium (Porcine) 5,000 unit 11/28/24 21:00 12/01/24 09:42 Heparin Sod Inj 5000 Unit/Ml Vial SC 12/12/24 20:59 5,000 unit BID ZAK Administration Piperacillin Sod/Tazobactam 100 mls @ 25 mls/hr 12/01/24 14:00 12/01/24 13:34 Sod 4.5 gm/ Sodium Chloride IV 12/08/24 13:59 25 mls/hr Q8HR ZAK Administration Protocol Levothyroxine Sodium 125 mcg 11/22/24 06:00 12/01/24 05:15 Levothyroxine Sodium 125 Mcg Tablet PO 12/22/24 05:59 125 mcg ACBR ZAK Administration Lidocaine 1 patch 11/26/24 13:00 Lidocaine 5% 1 Patch TOP 12/26/24 12:59 UD PRN PAIN Protocol Lisinopril 20 mg 11/27/24 16:45 12/01/24 09:41 Lisinopril 20 Mg Tablet PO 12/27/24 16:44 20 mg QDAY ZAK Administration Metronidazole 500 mg 11/30/24 14:00 12/01/24 05:15 Metronidazole 250 Mg Tablet PO 12/07/24 13:59 500 mg TID ZAK Administration Ondansetron HCl 4 mg 11/22/24 00:51 11/27/24 04:13 Ondansetron Inj 2 Mg/Ml Inj 2 Ml IV 12/22/24 00:50 4 mg Q6H PRN Administration NAUSEA OR VOMITING Protocol Oxycodone HCl 10 mg 11/27/24 10:33 12/01/24 13:36 Oxycodone Hcl 5 Mg Ir Tab PO 12/02/24 10:32 10 mg Q4H PRN Administration PAIN SCALE 4-10(Mod-Sev Pantoprazole Sodium 40 mg 11/30/24 21:00 12/01/24 09:42 Pantoprazole 40 Mg Tablet PO 12/30/24 20:59 40 mg BID ZAK Administration Potassium Phos/Sodium Phos 1 packet 11/29/24 09:15 12/01/24 09:42 Naph,[facility] Mbdb 1 Packet (1.5 Gm) PO 12/29/24 09:14 1 packet BID ZAK Administration Prednisone 5 mg 12/01/24 09:00 12/01/24 09:42 Prednisone 5 Mg Tablet PO 12/31/24 08:59 5 mg QAM ZAK Administration Spironolactone 25 mg 11/26/24 14:30 12/01/24 09:42 Spironolactone 25 Mg Tablet PO 12/26/24 14:29 25 mg BID ZAK Administration Plan Ms. 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 #Perforated gastrojejunostomy s/p repair, Gerson patch, washout, drain placement. Patient presented with intractable watery diarrhea for the past week. No blood no mucus. Recent antibiotic use and also recent travel to [place] where she was eating local food. Patient chronically on prednisone and monoclonal antibody upadacitinib for RA. History of Lynn-en-Y gastric bypass 20 years ago. CTAP showed pneumoperitoneum, air droplets in the wall of the colon, suspicious for ischemic bowel. General surgeon Dr. Thao was consulted, on 11/23/24 patient underwent repair of perforated gastrojejunostomy, Gerson patch, washout, drain placement without complications. On admission labs showed lactic acid 2.3, LDH 352, WBC 4.9. KUB did not show significant abnormalities. CT angio C/A/P was canceled due to worsening kidney function. In the ED patient received 4L normal saline IVF bolus, azithromycin and ceftriaxone IV x 1, on admission started with vancomycin, Zosyn and fidaxomicin. Patient passed swallow screen, started on full liquid diet by surgery. NG tube discontinued. Giardia, ova and parasites, H. pylori, norovirus negative. Stool calprotectin 1989. Patient transition to oral diet, tolerating well. TPN discontinued. Patient had increased leukocytosis to 22.3 confirmed by repeat CBC. Afebrile, does not complain of increased abdominal pain. LO drain output slightly increased from previous, serosanguineous drainage mostly serous. -Peptic ulcer diet, will advance as tolerated, pend surgery recommendations -IV acetaminophen 1000mg q6hr -Oxycodone 10 mg every 4 hours as needed for pain -GI Dr. Palacios consulted, Appreciate recommendations. -Infectious disease Dr. Forte, Appreciate recommendations. -general surgery following. -CT chest abdomen pelvis with contrast ordered, follow-up #Pseudomonas PNA Sputum Gram stain positive for psudomonas on 11/26. Pt not experiencing fever, chest pain, SOB. WBC uptrending, afebrile. Patient was transition to p.o. antibiotics Flagyl and Cipro on 11/30, transitioned back following day due to increased leukocytosis. -zosyn 4.5 g every 8 hours for 7 days 11/26?11/18 16 #Hx of hypertension. Home medication lisinopril 20 Mg p.o. daily. -Home medication resumed #?Adrenal Insufficiency Patient noted to be on press tender long goods steroid usage vs autoimmune etiology. History of rheumatoid arthritis and unknown etiology hypothyroidism. Last dose was several days prior. Blood pressure poorly responsive to IVF resusitation. Labs significant for Hyponatremia, Hyperkalemia, hypocalcemia and NAGMA consistent with AI. Received IV Solu-Medrol 4 mg, transition to p.o. equivalent to prednisone. -Prednisone 5 mg p.o. daily #Normocytic anemia. Hemoglobin noted to drop to 8.2 from 10.8, likely related from surgical procedure on 11/23. No signs of active bleeding noted on 11/24. -Monitor with daily CBC. -Transfuse pRBC for hemoglobin < 7.0. #Hx of hypothyroidism. Unknown etiology, . Patient's home medication levothyroxine 125 mcg p.o. daily. Patient's last dose increase was 2 months ago Plan: -Resumed home levothyroxine #Hx of rheumatoid arthritis. Patient has long history of rheumatoid arthritis, underwent multiple treatments with methotrexate and other DMARDs, currently on prednisone 10 mg and monoclonal antibody upadacitinib for prolonged time. Plan: -upadacitinib on hold. -continue methylprednisolone 4 mg daily. FEN: Peptic ulcer diet DVT prophylaxis: Heparin GI prophylaxis: IV pantoprazole 40mg BID. Lines: Peripheral IV, wound VAC, LO drain CODE STATUS: Full code. Plan of care discussed with senior resident Dr. Nichols PGY-[address] Matthews. Marcus Norman MD PGY-1 Senior Resident Attestation: I discussed with and supervised the internet architect physician involved in the care of this patient. I personally saw and examined the patient and discussed the assessment and plan with the entire medicine team, including my attending. I agree with the assessment and plan as documented above. Patient seen and examined this a.m. Patient is status post day 6 of the perforated gastrojejunostomy performed by Dr. Shepherd. Will continue IV antibiotics. Patient is on a good pain regimen. Patient seemed a little delirious this a.m. likely secondary to patient's Ambien use. We are still treating patient's Pseudomonas pneumonia with Zosyn and will run until December 03. Patient is tolerating p.o. intake we have DC'd the TPN. Patient is having regular bowel movement. And passing gas. - Patient's care was discussed with my attending physician. Sadi Tatum MD Internal Medicine PGY-3 Attending Provider Attestation/Addendum I have discussed and was present for the essential components of the history, physical examination, diagnosis, and treatment plan with the resident. I agree with the patient's care as documented by the resident and amended herein by me. Chet Matthews DO. Patient seen and evaluated this AM. Vital signs stable, patient afebrile overnight, LO drain output 145 mL of serous fluid, significant labs including uptrending WBC to 19, stable hemoglobin at 8, BMP largely unremarkable. Will transition back to Zosyn for now, a CT chest abdomen pelvis has been ordered to reevaluate for any worsening intra-abdominal versus pulmonary infection, surgery consulted, appreciate recommendations. Although this document has been carefully reviewed, there may still be some phonetic and other typographical errors. These errors are purely grammatical due to imperfections in the software program and should not be construed in any way to compromise the substance of the patient's medical care during this visit.
--- NOTE | 2024-12-01 16:14 | PC.SS ---
SS follow up note; SS spoke to Radha in regards to authorization status and she informed SS she will submit tomorrow morning. She expressed she has been busy and will submit first thing tomorrow morning. SS will stand by for further needs.
[2024-12-01] MEDS: AMBIEN 12.5 MG PO (21:24)
--- NOTE | 2024-12-01 21:47 | ESPR_ITS ---
Documentation for date of: 12/01/24 Subjective Subjective Interval history: Patient alert oriented No nausea vomiting Passing flatus Had a bowel movement Exam Vital Signs Temp Pulse Resp BP Pulse Ox O2 Del Method O2 Flow Rate 96.9 F 117 H 19 115/78 95 Room Air 1 12/01/24 20:00 12/01/24 21:25 12/01/24 20:00 12/01/24 21:25 12/01/24 20:00 12/01/24 20:00 12/01/24 16:00 FiO2 21 11/25/24 10:16 Objective Labs 12/01/24 09:24 12/01/24 05:24 Labs: Laboratory Results - last 24 hr 12/01/24 12/01/24 05:24 09:24 WBC 19.3 H D 22.3 H RBC 2.61 L 2.77 L Hgb 8.4 L 8.9 L Hct 26.2 L 28.7 L MCV 100 104 H MCH 32.2 32.1 MCHC 32.1 31.0 RDW Std Deviation 49.4 H 50.9 H Plt Count 156 D 175 Neut % (Auto) 82 H 83 H Lymph % (Auto) 9 L 8 L [place] % (Auto) 5 5 Eos % (Auto) 0 0 Baso % (Auto) 0 0 Neut # (Auto) 15.9 H 18.5 H Lymph # (Auto) 1.8 1.8 [place] # (Auto) 1.0 H 1.2 H Eos # (Auto) 0.1 0.1 Baso # (Auto) 0.0 0.1 Immature Gran # (Auto) 0.59 H 0.67 H Absolute Nucleated RBC 0.12 H 0.21 H Immature Gran % 3 H 3 H Nucleated RBC % 1 H 1 H Sodium 137 Potassium 4.0 Chloride 103 Carbon Dioxide 23.5 Anion Gap 11 BUN 15 Creatinine 0.8 Estim Creat Clear Calc 100.7 eGFR > 60 BUN/Creatinine Ratio 19 Glucose 93 Calculated Osmolality 274 L Calcium 8.0 L Corrected Calcium 9.0 Phosphorus 2.7 Magnesium 1.7 Total Bilirubin 0.3 AST 20 ALT 15 Alkaline Phosphatase 55 Total Protein 5.0 L Albumin 2.8 L Globulin 2.2 L Albumin/Globulin Ratio 1.3 Impressions Impression: # Gastrojejunostomy anastomotic site perforation requiring exploratory laparotomy Doing well postoperatively ABG Interpretation ABG results: 11/22/24 11/23/24 11/23/24 17:58 02:09 04:07 ABG pH 7.25 L 7.22 L 7.26 L ABG pCO2 22 L 28 L 24 L ABG pO2 102 69 L D 94 D ABG HCO3 9 L* 12 L 11 L ABG O2 Saturation 97 89 L 95 ABG Base Excess -16 L -15 L -15 L 11/23/24 11/24/24 11/25/24 06:27 05:01 04:01 ABG pH 7.15 L* D 7.42 D 7.40 ABG pCO2 35 D 33 36 ABG pO2 355 H D 124 H D 92 D ABG HCO3 12 L 21 22 ABG O2 Saturation 100 H 99 H 97 ABG Base Excess -16 L -3 -2 Assessment & Plan A&P Narrative abx appear to target a late resp cx, cxr noted so rx is for apparent pneumonia as a complication of surgery presumptive peritonitis targeting of rare pseudomonas in resp cx up to you. max duration of abx for resp infection is 7d. and organism is s. to quinolones that are the same iv and po. will will again prn Time Spent With Patient Time: Total time spent is greater than 50% in coordination of care (as documented) at patient's floor/unit and/or counseling patient: Procedures Arterial Line Size (Gauge): 20
[2024-12-02] VITALS (26 sets, daily range): BP systolic 91–136; BP diastolic 55–87; PULSE 112–127; RESP 15–24; TEMP 36.1–36.9; O2SAT 87–100
[2024-12-02] MEDS: PIPER/TAZO INJ 4.5 GM in SODIUM CHLORIDE 0.9% 100 ML IV ×3 (05:35→22:03)
[2024-12-02] MEDS: LEVOTHYROXINE SODIUM 125 MCG TABLET PO (05:35)
[2024-12-02] MEDS: oxyCODONE HCL 5 MG IR TAB 10 MG PO ×4 (05:43→19:40)
[2024-12-02 05:44] LABS: Basophils # (Auto) 0.1 Thou/mm3 (0.0-0.2); Basophils % (Auto) 0 % (0-2.5); Eosinophils # (Auto) 0.1 Thou/mm3 (0.0-0.5); Eosinophils % (Auto) 0 % (0-10); Immature Granulocytes % (Auto) 3 % (0-0); Immature Granulocytes Auto 0.61 Thou/mm3 (0.00-0.00); Lymphocytes # (Auto) 1.8 Thou/mm3 (1.0-4.8); Lymphocytes % (Auto) 10 % (10-50); Mean Corpuscular HGB Conc 31.5 g/dl (31.0-37.0); Mean Corpuscular Hemoglobin 31.5 pg (25.0-35.0); Mean Corpuscular Volume 100 fL (80-100); Monocytes # (Auto) 1.1 Thou/mm3 (0.0-0.8); Monocytes % (Auto) 6 % (0-12); Neutrophils # (Auto) 14.6 Thou/mm3 (1.8-7.7); Neutrophils % (Auto) 80 % (37-80); Nucleated Red Blood Cell % 1 /100 WBC (0); Platelet Count 161 Thou/mm3 (140-440); RDW Standard Deviation 49.8 fL (36.4-46.3); White Blood Count 18.3 Thou/mm3 (3.6-11.0)
[2024-12-02 05:52] LABS: Hemoglobin 8.5 g/dL (12.0-16.0)
[2024-12-02 06:05] LABS: Alanine Aminotransferase 15 U/L (10-49); Albumin, Serum 2.6 gm/dL (3.5-5.0); Albumin/Globulin Ratio 1.2 (1.2-2.2); Alkaline Phosphatase 48 U/L (46-116); Anion Gap 11 (7-16); Aspartate Amino Transferase 28 U/L (0-34); BUN/Creatinine Ratio 13 Ratio (12-20); Bilirubin,Total 0.3 mg/dL (0.3-1.2); Blood Urea Nitrogen 10 mg/dL (9-23); Calcium 7.5 mg/dL (8.3-10.6); Calcium (Corrected) 8.6 mg/dL (8.5-10.1); Carbon Dioxide 21.5 mMol/L (20.0-31.0); Chloride 103 mMol/L (98-107); Creatinine (Component) 0.8 mg/dL (0.6-1.3); Estimated Creatinine Clearance 98.1 mL/min (>60); Globulin 2.1 gm/dL (2.3-3.5); Glucose 96 mg/dL (74-106); Magnesium 2.1 mg/dL (1.6-2.6); Osmolality,Calculated 269 (275-295); Phosphorous 2.5 mg/dL (2.4-5.1); Potassium 3.9 mMol/L (3.4-5.1); Sodium 135 mMol/L (136-145); Total Protein 4.7 gm/dL (5.7-8.2); eGFR > 60 See Note
--- NOTE | 2024-12-02 07:31 | XR_ITS ---
Examination: CT-guided percutaneous placement abscess drainage catheter left subphrenic abscess CT-guided percutaneous catheter drainage left pelvic abscess CT abdomen and pelvis without intravenous contrast Date and time of procedure: December 02, 2024 1306 hours INDICATIONS: Fever abdominal pain post surgery, CT abdomen pelvis December 01, 2024 left subphrenic abscess, left pelvic abscess Informed consent provided. A timeout was completed verifying correct patient, procedure, site and positioning. Technique: Axial 3 mm sections were obtained for localization of the left subphrenic abscess and left pelvic abscess Appropriate area is marked. The patient's site was prepped and draped in sterile fashion Maximal sterile barrier technique utilized, including hand hygiene Local anesthesia was obtained with 1% lidocaine. Low dose protocols were performed. One or more of the following dose reduction techniques were used; automated exposure control, adjustment of the mA and/or KV according to patient size, use of iterative reconstruction technique. Utilizing CT fluoroscopic guidance 5 Colombian catheter placed in the subphrenic abscess, followed by 0.34 wire guide dilators and an 8 Colombian abscess drainage catheter in proper position Utilizing CT fluoroscopic guidance 5 Colombian catheter placed in the pelvic abscess with successful aspiration of the purulent contents Complete culture and sensitivity report to follow. Impression: Successful percutaneous placement left subphrenic abscess drainage catheter, 250 cc purulent material removed Successful CT-guided catheter drainage pelvic abscess, 12 cc purulent material removed
--- NOTE | 2024-12-02 08:56 | PD.SURPROG ---
Documentation for date of: 12/02/24 Subjective Subjective Brief History: 54F with rheumatoid arthritis on chronic prednisone, obesity presenting yesterday with diarrhea and abdominal pain. Pt had recently traveled to [place] and also took a z-natalie which completed 11/20, and had watery diarrhea. Today pt underwent CT AP with findings of pneumoperitoneum and droplets adjacent to colon, she is on two pressors which are being weaned PMH: RA, hypothyroidism PSHx: Gastric bypass surgery, appendectomy, abdominoplasty Meds: on prednisone for years, no antiplt or anticoagulation Allergies: Bactrim Social hx: Nonsmoker Narrative: Yesterday underwent CT showing abd and pelvic abscess, WBC gradually downtrending, pt reports feeling well overall with pain controlled, no nausea, LO 80cc/24h Exam Vital Signs Temp Pulse Resp BP Pulse Ox O2 Del Method O2 Flow Rate 98.4 F 124 H 15 109/71 94 L Room Air 1 12/02/24 04:00 12/02/24 05:00 12/02/24 04:00 12/02/24 04:00 12/02/24 04:00 12/02/24 04:00 12/01/24 16:00 FiO2 21 11/25/24 10:16 Constitutional Constitutional: no acute distress Routine Respiratory Exam Respiratory: Present no resp distress Routine Abdominal Exam Abdominal: Present soft and drain (LO with serous output); Absent tenderness or distended Results Results: Laboratory Laboratory results: results reviewed Results: Imaging CT scan - abdomen: report reviewed and image reviewed Assessment & Plan Plan 54F with RA chronically on prednisone, remote history of gastric bypass who initially presented with diarrhea, with subsequent findings of pneumoperitoneum on CT now s/p emergent laparotomy with repair of perforated gastrojejunostomy, washout and drain placement 11/23, recovering well with return of bowel function, now with abd and pelvic abscess IR drainage Continue abx Trend WBC Procedures Procedures Repair of perforated gastrojejunostomy, Gerson patch, washout, drain placement
[2024-12-02] MEDS: Lisinopril 20 MG TABLET PO (08:59)
[2024-12-02] MEDS: predniSONE 5 MG TABLET PO (08:59)
[2024-12-02] MEDS: SPIRONOLACTONE 25 MG TABLET PO ×2 (08:59→21:59)
[2024-12-02] MEDS: PANTOPRAZOLE 40 MG TABLET PO ×2 (08:59→22:02)
[2024-12-02] MEDS: NAPH,KPH MBDB 1 PACKET (1.5 GM) PO ×2 (09:00→22:03)
--- NOTE | 2024-12-02 09:04 | PC.NURSE ---
Dr. Thao at bedside to change wound vac at this time. Medicated prior.
--- NOTE | 2024-12-02 10:21 | PC.SS ---
Addendum entered by Aisha Callejas 12/02/24 14:41: SS follow up note; SS was contacted by Radha from [facility], she informed SS that patient's insurance was requesting updated PT notes. Radha provided SS with Insurance contact information (Rin) [phone]. . SS faxed updated Clinicals to patient's insurance. Original Note: SS follow up note; SS received a message via [employer] from Radha from [facility] that auth was pending as of 10:15AM this morning. Patient is not medically cleared at the time.
[2024-12-02 11:46] LABS: INR 1.1 (0.9-1.3); Partial Thromboplastin Time 23.3 Seconds (22.0-36.0); Prothrombin Time 11.6 Seconds (9.0-12.2)
--- NOTE | 2024-12-02 12:16 | PC.NURSE ---
Pt to CT via juan manuel
[2024-12-02] MEDS: SODIUM CHLORIDE 0.9% 500 ML 500 ML 250 ML IV (13:00)
[2024-12-02] MEDS: fentaNYL CIT INJ 50 mCg/ML AMP 2ML 75 MCG IVP (13:30)
[2024-12-02] MEDS: LIDOCAINE INJ PF 1% 5 ML VIAL 19 ML INFL (13:40)
--- NOTE | 2024-12-02 14:36 | ESPR_ITS ---
<Statement entered by Julio Nichols MD - 12/02/24 14:55> Patient was seen and examined at the bedside this morning. Patient reported that she does not have any abdominal discomfort. Abdominal examination showed active bowel sounds with soft abdomen with no tenderness. CT abdomen showed abscess at subphrenic and pelvic region therefore surgery recommended to perform IR guided abscess drainage. Will continue with Zosyn. Patient is currently n.p.o. for procedure. White count is improving slowly at 18.3. Blood pressure remained stable. All labs and orders were reviewed. Patient's family was updated regarding the plan. I saw and examined the patient, and I agree with current management stated by Dr Emerson LOTT,PGY1. Plan of care was discussed with the attending physician and resident physician. Disclaimer: Despite multiple revisions, due to the dictation software being used, the document bellow may not be free of grammatical errors including phonetic/typographic errors. However, this does not deter from our commitment to providing health care in the patient's best interest in mind. Dr. Simone MD, PGY 2 Documentation for date of: 12/02/24 Subjective Subjective Interval history: No overnight events. Patient seen and examined resting in bed. Patient reports minimal change in subjective symptoms. Continues to endorse mild diffuse abdominal pain, feelings of weakness. States appetite is somewhat improved. Denies fevers, chills, chest pain, shortness of breath, nausea, vomiting. CT scan showed subphrenic and pelvic abscesses, plan for CT-guided drainage. Will attempt to place PIV, successful discontinue central line. Exam Vital Signs Temp Pulse Resp BP Pulse Ox O2 Del Method O2 Flow Rate 98.1 F 112 H 18 122/76 95 Room Air 3 12/02/24 14:04 12/02/24 14:15 12/02/24 14:15 12/02/24 14:15 12/02/24 14:15 12/02/24 14:15 12/02/24 13:50 FiO2 21 11/25/24 10:16 Narrative Exam Gen: Well-developed and well-nourished obese female. Soft, scratchy voice. HEENT: NCAT, PERRLA, EOMI, MMM, anicteric conjunctivae. CVS: normal S1 and S2. Sinus tachycardia. No M/R/G. Resp: Decreased breath sounds B/L due to body habitus. No rhonchi, rales, crackles or wheezing. Abd: soft, mildly distended, s/p laparoscopy with midline abdominal scar, appears clean, wound VAC and LO drain in place. BS+ in all 4 quadrants. Diffuse mild tenderness, unchanged. MSK: Nonpitting edema BLE. Multiple ecchymosis dorsal surface BUE, significantly decreased edema compared to previous days. Neuro: grossly intact Objective Labs 12/02/24 05:21 12/02/24 05:21 Labs: Laboratory Results - last 24 hr 12/02/24 12/02/24 05:21 11:15 WBC 18.3 H RBC 2.70 L Hgb 8.5 L Hct 27.0 L MCV 100 MCH 31.5 MCHC 31.5 RDW Std Deviation 49.8 H Plt Count 161 Neut % (Auto) 80 Lymph % (Auto) 10 [place] % (Auto) 6 Eos % (Auto) 0 Baso % (Auto) 0 Neut # (Auto) 14.6 H Lymph # (Auto) 1.8 [place] # (Auto) 1.1 H Eos # (Auto) 0.1 Baso # (Auto) 0.1 Immature Gran # (Auto) 0.61 H Absolute Nucleated RBC 0.20 H Immature Gran % 3 H Nucleated RBC % 1 H PT 11.6 INR 1.1 APTT 23.3 Sodium 135 L Potassium 3.9 Chloride 103 Carbon Dioxide 21.5 Anion Gap 11 BUN 10 Creatinine 0.8 Estim Creat Clear Calc 98.1 eGFR > 60 BUN/Creatinine Ratio 13 Glucose 96 Calculated Osmolality 269 L Calcium 7.5 L Corrected Calcium 8.6 Phosphorus 2.5 Magnesium 2.1 Total Bilirubin 0.3 AST 28 ALT 15 Alkaline Phosphatase 48 Total Protein 4.7 L Albumin 2.6 L Globulin 2.1 L Albumin/Globulin Ratio 1.2 ABG Interpretation ABG results: 11/22/24 11/23/24 11/23/24 17:58 02:09 04:07 ABG pH 7.25 L 7.22 L 7.26 L ABG pCO2 22 L 28 L 24 L ABG pO2 102 69 L D 94 D ABG HCO3 9 L* 12 L 11 L ABG O2 Saturation 97 89 L 95 ABG Base Excess -16 L -15 L -15 L 11/23/24 11/24/24 11/25/24 06:27 05:01 04:01 ABG pH 7.15 L* D 7.42 D 7.40 ABG pCO2 35 D 33 36 ABG pO2 355 H D 124 H D 92 D ABG HCO3 12 L 21 22 ABG O2 Saturation 100 H 99 H 97 ABG Base Excess -16 L -3 -2 Quality Measures Quality Measures VTE therapy (Heparin) Assessment & Plan Assessment Current Active Medications: Generic Name Dose Route Start Last Admin Trade Name Freq PRN Reason Stop Dose Admin Acetaminophen 650 mg 11/30/24 11:31 Acetaminophen 325 Mg Tablet PO 12/30/24 11:30 Q6H PRN PAIN SCALE 1-3 (mild Al Hydrox/Mg Hydrox/Simethicone 30 ml 11/22/24 00:53 Mg Hyd/Al Hyd/Sandie (Maalox Reg) Susp 30 Ml Udc PO 12/22/24 00:52 Q4HR PRN UPSET STOMACH/INDIGESTION Albuterol/Ipratropium 3 ml 11/22/24 00:45 11/23/24 02:09 Albuterol/Ipratropium (Duoneb) Rt [place] 3 Ml Nebu INH 12/22/24 00:44 3 ml Q2HR PRN Administration SHORTNESS OF BREATH OR WHEEZE Benzocaine 0 dose 11/27/24 11:37 Benzocaine 20% (Hurricaine) [place] 1 Dose TOP 12/27/24 11:36 PRN PRN SORE THROAT Ciprofloxacin 500 mg 11/30/24 11:45 11/30/24 20:49 Ciprofloxacin Hcl 250 Mg Tablet PO 12/07/24 11:44 500 mg BID ZAK Administration Ambien Cr 12.5 Mg 0 ea 11/30/24 21:00 12/01/24 21:24 Tablet PO 12/30/24 20:59 1 tablet HS ZAK Administration Heparin Sodium (Porcine) 5,000 unit 11/28/24 21:00 12/02/24 08:46 Heparin Sod Inj 5000 Unit/Ml Vial SC 12/12/24 20:59 Not Given BID ZAK Piperacillin Sod/Tazobactam 100 mls @ 25 mls/hr 12/01/24 14:00 12/02/24 05:35 Sod 4.5 gm/ Sodium Chloride IV 12/08/24 13:59 25 mls/hr Q8HR ZAK Administration Protocol Sodium Chloride 500 mls @ 250 mls/hr 12/02/24 12:45 Ns IV 12/02/24 14:44 .Q2H ZAK Levothyroxine Sodium 125 mcg 11/22/24 06:00 12/02/24 05:35 Levothyroxine Sodium 125 Mcg Tablet PO 12/22/24 05:59 125 mcg ACBR ZAK Administration Lidocaine 1 patch 11/26/24 13:00 Lidocaine 5% 1 Patch TOP 12/26/24 12:59 UD PRN PAIN Protocol Lisinopril 20 mg 11/27/24 16:45 12/02/24 08:59 Lisinopril 20 Mg Tablet PO 12/27/24 16:44 20 mg QDAY ZAK Administration Metronidazole 500 mg 11/30/24 14:00 12/01/24 05:15 Metronidazole 250 Mg Tablet PO 12/07/24 13:59 500 mg TID ZAK Administration Ondansetron HCl 4 mg 11/22/24 00:51 11/27/24 04:13 Ondansetron Inj 2 Mg/Ml Inj 2 Ml IV 12/22/24 00:50 4 mg Q6H PRN Administration NAUSEA OR VOMITING Protocol Oxycodone HCl 10 mg 12/02/24 11:09 Oxycodone Hcl 5 Mg Ir Tab PO 12/07/24 11:08 Q4H PRN PAIN SCALE 4-10(Mod-Sev Pantoprazole Sodium 40 mg 11/30/24 21:00 12/02/24 08:59 Pantoprazole 40 Mg Tablet PO 12/30/24 20:59 40 mg BID ZAK Administration Potassium Phos/Sodium Phos 1 packet 11/29/24 09:15 12/02/24 09:00 [facility] 1 Packet (1.5 Gm) PO 12/29/24 09:14 1 packet BID ZAK Administration Prednisone 5 mg 12/01/24 09:00 12/02/24 08:59 Prednisone 5 Mg Tablet PO 12/31/24 08:59 5 mg QAM ZAK Administration Spironolactone 25 mg 11/26/24 14:30 12/02/24 08:59 Spironolactone 25 Mg Tablet PO 12/26/24 14:29 25 mg BID ZAK Administration Plan Ms. 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 #Perforated gastrojejunostomy s/p repair, Gerson patch, washout, drain placement. Patient presented with intractable watery diarrhea for the past week. No blood no mucus. Recent antibiotic use and also recent travel to [place] where she was eating local food. Patient chronically on prednisone and monoclonal antibody upadacitinib for RA. History of Lynn-en-Y gastric bypass 20 years ago. CTAP showed pneumoperitoneum, air droplets in the wall of the colon, suspicious for ischemic bowel. General surgeon Dr. Thao was consulted, on 11/23/24 patient underwent repair of perforated gastrojejunostomy, Gerson patch, washout, drain placement without complications. On admission labs showed lactic acid 2.3, LDH 352, WBC 4.9. KUB did not show significant abnormalities. CT angio C/A/P was canceled due to worsening kidney function. In the ED patient received 4L normal saline IVF bolus, azithromycin and ceftriaxone IV x 1, on admission started with vancomycin, Zosyn and fidaxomicin. Patient passed swallow screen, started on full liquid diet by surgery. NG tube discontinued. Giardia, ova and parasites, H. pylori, norovirus negative. Stool calprotectin 1989. Patient transition to oral diet, tolerating well. TPN discontinued. Patient had increased leukocytosis to 22.3 confirmed by repeat CBC. Afebrile, does not complain of increased abdominal pain. LO drain output slightly increased from previous, serosanguineous drainage mostly serous. CT chest abdomen pelvis with contrast showed a subphrenic abscess and a pelvic abscess. -Peptic ulcer diet, will advance as tolerated, pend surgery recommendations -IV acetaminophen 1000mg q6hr -Oxycodone 10 mg every 4 hours as needed for pain -GI Dr. Palacios consulted, Appreciate recommendations. -Infectious disease Dr. Forte, Appreciate recommendations. -general surgery following. -CT guided drainage of abscesses #Pseudomonas PNA Sputum Gram stain positive for psudomonas on 11/26. Pt not experiencing fever, chest pain, SOB. WBC uptrending, afebrile. Patient was transition to p.o. antibiotics Flagyl and Cipro on 11/30, transitioned back following day due to increased leukocytosis. -zosyn 4.5 g every 8 hours for 7 days 11/26?11/18 16 #Hx of hypertension. Home medication lisinopril 20 Mg p.o. daily. -Home medication resumed #?Adrenal Insufficiency Patient noted to be on senior living steroid usage vs autoimmune etiology. History of rheumatoid arthritis and unknown etiology hypothyroidism. Last dose was several days prior. Blood pressure poorly responsive to IVF resusitation. Labs significant for Hyponatremia, Hyperkalemia, hypocalcemia and NAGMA consistent with AI. Received IV Solu-Medrol 4 mg, transition to p.o. equivalent to prednisone. -Prednisone 5 mg p.o. daily #Normocytic anemia. Hemoglobin noted to drop to 8.2 from 10.8, likely related from surgical procedure on 11/23. No signs of active bleeding noted on 11/24. -Monitor with daily CBC. -Transfuse pRBC for hemoglobin < 7.0. #Hx of hypothyroidism. Unknown etiology, . Patient's home medication levothyroxine 125 mcg p.o. daily. Patient's last dose increase was 2 months ago Plan: -Resumed home levothyroxine #Hx of rheumatoid arthritis. Patient has long history of rheumatoid arthritis, underwent multiple treatments with methotrexate and other DMARDs, currently on prednisone 10 mg and monoclonal antibody upadacitinib for prolonged time. Plan: -upadacitinib on hold. -continue methylprednisolone 4 mg daily. FEN: Peptic ulcer diet DVT prophylaxis: Heparin GI prophylaxis: IV pantoprazole 40mg BID. Lines: Central line, wound VAC, LO drain CODE STATUS: Full code. Plan of care discussed with senior resident Dr. Nichols PGY-[address] Matthews. Marcus Norman MD PGY-1 Attending Provider Attestation/Addendum I have discussed and was present for the essential components of the history, physical examination, diagnosis, and treatment plan with the resident. I agree with the patient's care as documented by the resident and amended herein by me. Chet Matthews DO. Patient seen and evaluated this AM. In Short, patient 54-year-old female significant past medical history of RA, hypothyroidism, hypertension, gastric bypass surgery approximately 20 years ago who presented the ED with intractable diarrhea, initially admitted to the ICU for septic shock subsequently found to have a perforated bowel and underwent repair with Dr. Shepherd on 11/23/2024. Patient was being prepared for discharge on 12/01 however her WBC trended up, we did order a CT abdomen and pelvis at that time which demonstrated a subphrenic abscess and pelvic abscess. Will continue Zosyn at this time, we have consulted IR for drainage and drain placement for the abscesses, patient was also being treated for Pseudomonas pneumonia however Zosyn will also cover effectively. The patient is still on steroids, there was a concern about adrenal insufficiency considering her long-term use of steroids for RA however she is on a low-dose here, prednisone 5 mg p.o. daily which is approximately half of her normal daily dose at home. General surgery consulted, appreciate recommendations, will continue to monitor closely. Although this document has been carefully reviewed, there may still be some phonetic and other typographical errors. These errors are purely grammatical due to imperfections in the software program and should not be construed in any way to compromise the substance of the patient's medical care during this visit.
--- NOTE | 2024-12-02 15:06 | PC.NURSE ---
pt returned to room via juan manuel
--- NOTE | 2024-12-02 15:20 | PC.IP ---
ET secretion culture resulted positive for Pseudomonas aeruginosa with resistance to Ertapenem. 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 Please keep patient in a single patient room to minimize the risk of transmission to other patients and be sure to practice proper hand hygiene after interacting with the patient and their environment.
--- NOTE | 2024-12-02 15:26 | PC.SS ---
SS follow up note; According to Jan[facility] NARAYAN at [facility] been [facility]d for Kari Jalloh [id number]. Janett?s ph# [phone]. SS was also contacted by Radha from [facility] that patient is pending Wound Vac Delivery.
--- NOTE | 2024-12-02 16:15 | PD.IMPROG ---
Documentation for date of: 12/02/24 Subjective Subjective Interval history: Patient evaluated Hemoglobin hematocrit 8.5 and 27.0 Able to tolerate p.o. diet Passing flatus and had a bowel movement Exam Vital Signs Temp Pulse Resp BP Pulse Ox O2 Del Method O2 Flow Rate 98.1 F 112 H 17 129/68 95 Room Air 3 12/02/24 14:04 12/02/24 14:45 12/02/24 14:45 12/02/24 14:45 12/02/24 14:45 12/02/24 14:45 12/02/24 13:50 FiO2 21 11/25/24 10:16 Objective Labs 12/02/24 05:21 12/02/24 05:21 Labs: Laboratory Results - last 24 hr 12/02/24 12/02/24 05:21 11:15 WBC 18.3 H RBC 2.70 L Hgb 8.5 L Hct 27.0 L MCV 100 MCH 31.5 MCHC 31.5 RDW Std Deviation 49.8 H Plt Count 161 Neut % (Auto) 80 Lymph % (Auto) 10 [place] % (Auto) 6 Eos % (Auto) 0 Baso % (Auto) 0 Neut # (Auto) 14.6 H Lymph # (Auto) 1.8 [place] # (Auto) 1.1 H Eos # (Auto) 0.1 Baso # (Auto) 0.1 Immature Gran # (Auto) 0.61 H Absolute Nucleated RBC 0.20 H Immature Gran % 3 H Nucleated RBC % 1 H PT 11.6 INR 1.1 APTT 23.3 Sodium 135 L Potassium 3.9 Chloride 103 Carbon Dioxide 21.5 Anion Gap 11 BUN 10 Creatinine 0.8 Estim Creat Clear Calc 98.1 eGFR > 60 BUN/Creatinine Ratio 13 Glucose 96 Calculated Osmolality 269 L Calcium 7.5 L Corrected Calcium 8.6 Phosphorus 2.5 Magnesium 2.1 Total Bilirubin 0.3 AST 28 ALT 15 Alkaline Phosphatase 48 Total Protein 4.7 L Albumin 2.6 L Globulin 2.1 L Albumin/Globulin Ratio 1.2 Impressions Impression: # Status post exploratory laparotomy for anastomotic site of the gastrojejunostomy perforation Doing well postoperatively ABG Interpretation ABG results: 11/22/24 11/23/24 11/23/24 17:58 02:09 04:07 ABG pH 7.25 L 7.22 L 7.26 L ABG pCO2 22 L 28 L 24 L ABG pO2 102 69 L D 94 D ABG HCO3 9 L* 12 L 11 L ABG O2 Saturation 97 89 L 95 ABG Base Excess -16 L -15 L -15 L 11/23/24 11/24/24 11/25/24 06:27 05:01 04:01 ABG pH 7.15 L* D 7.42 D 7.40 ABG pCO2 35 D 33 36 ABG pO2 355 H D 124 H D 92 D ABG HCO3 12 L 21 22 ABG O2 Saturation 100 H 99 H 97 ABG Base Excess -16 L -3 -2 Assessment & Plan A&P Narrative abx appear to target a late resp cx, cxr noted so rx is for apparent pneumonia as a complication of surgery presumptive peritonitis targeting of rare pseudomonas in resp cx up to you. max duration of abx for resp infection is 7d. and organism is s. to quinolones that are the same iv and po. will will again prn Time Spent With Patient Time: Total time spent is greater than 50% in coordination of care (as documented) at patient's floor/unit and/or counseling patient: Procedures Arterial Line Size (Gauge): 20
[2024-12-02] MEDS: AMBIEN 12.5 MG PO (21:58)
[2024-12-03] VITALS (12 sets, daily range): BP systolic 101–117; BP diastolic 68–78; PULSE 103–125; RESP 18–20; TEMP 36–36.7; O2SAT 96–98; BMI 33.3
[2024-12-03] MEDS: LEVOTHYROXINE SODIUM 125 MCG TABLET PO (05:28)
[2024-12-03] MEDS: PIPER/TAZO INJ 4.5 GM in SODIUM CHLORIDE 0.9% 100 ML IV ×3 (05:28→22:31)
[2024-12-03] MEDS: guaiFENesin/DM TABLET 1 EACH PO (05:43)
[2024-12-03 06:42] LABS: Basophils # (Auto) 0.1 Thou/mm3 (0.0-0.2); Basophils % (Auto) 0 % (0-2.5); Eosinophils # (Auto) 0.1 Thou/mm3 (0.0-0.5); Eosinophils % (Auto) 0 % (0-10); Hematocrit 25.5 % (36.0-46.0); Immature Granulocytes % (Auto) 3 % (0-0); Immature Granulocytes Auto 0.43 Thou/mm3 (0.00-0.00); Lymphocytes # (Auto) 1.7 Thou/mm3 (1.0-4.8); Lymphocytes % (Auto) 10 % (10-50); Mean Corpuscular Hemoglobin 31.6 pg (25.0-35.0); Mean Corpuscular Volume 102 fL (80-100); Monocytes % (Auto) 6 % (0-12); Neutrophils # (Auto) 12.9 Thou/mm3 (1.8-7.7); Neutrophils % (Auto) 80 % (37-80); Nucleated Red Blood Cell # 0.12 Thou/mm3 (0.00-0.00); Nucleated Red Blood Cell % 1 /100 WBC (0); Platelet Count 253 Thou/mm3 (140-440); RDW Standard Deviation 51.2 fL (36.4-46.3); White Blood Count 16.1 Thou/mm3 (3.6-11.0)
[2024-12-03 06:55] LABS: Hemoglobin 7.9 g/dL (12.0-16.0)
[2024-12-03 07:03] LABS: Alanine Aminotransferase 23 U/L (10-49); Albumin, Serum 2.8 gm/dL (3.5-5.0); Albumin/Globulin Ratio 1.3 (1.2-2.2); Alkaline Phosphatase 51 U/L (46-116); Anion Gap 9 (7-16); Aspartate Amino Transferase 44 U/L (0-34); BUN/Creatinine Ratio 11 Ratio (12-20); Bilirubin,Total 0.4 mg/dL (0.3-1.2); Blood Urea Nitrogen 9 mg/dL (9-23); Chloride 103 mMol/L (98-107); Creatinine (Component) 0.8 mg/dL (0.6-1.3); Estimated Creatinine Clearance 87.7 mL/min (>60); Globulin 2.2 gm/dL (2.3-3.5); Glucose 87 mg/dL (74-106); Magnesium 1.7 mg/dL (1.6-2.6); Osmolality,Calculated 269 (275-295); Phosphorous 2.6 mg/dL (2.4-5.1); Potassium 3.6 mMol/L (3.4-5.1); Sodium 136 mMol/L (136-145); eGFR > 60 See Note
[2024-12-03] MEDS: Lisinopril 20 MG TABLET PO (08:59)
[2024-12-03] MEDS: predniSONE 5 MG TABLET PO (08:59)
[2024-12-03] MEDS: PANTOPRAZOLE 40 MG TABLET PO ×2 (09:00→20:22)
[2024-12-03] MEDS: SPIRONOLACTONE 25 MG TABLET PO ×2 (09:00→20:22)
[2024-12-03] MEDS: NAPH,KPH MBDB 1 PACKET (1.5 GM) PO ×2 (09:00→20:26)
[2024-12-03] MEDS: Magnesium Sulfate 4 GM Ivpb 4 GM/50 ML BAG IV (09:00)
[2024-12-03] MEDS: oxyCODONE HCL 5 MG IR TAB 10 MG PO ×2 (10:37→18:18)
[2024-12-03] MEDS: SODIUM CHLORIDE 0.9% 1000 ML 1,000 ML 999 ML IV (11:27)
[2024-12-03] MEDS: VANCOMYCIN/NS 1 GM IVPB 200 ML IV ×2 (12:27→22:31)
--- NOTE | 2024-12-03 12:57 | ESPR_ITS ---
Documentation for date of: 12/03/24 Subjective Subjective Brief History: 54F with rheumatoid arthritis on chronic prednisone, obesity presenting yesterday with diarrhea and abdominal pain. Pt had recently traveled to [place] and also took a z-natalie which completed 11/20, and had watery diarrhea. Today pt underwent CT AP with findings of pneumoperitoneum and droplets adjacent to colon, she is on two pressors which are being weaned PMH: RA, hypothyroidism PSHx: Gastric bypass surgery, appendectomy, abdominoplasty Meds: on prednisone for years, no antiplt or anticoagulation Allergies: Bactrim Social hx: Nonsmoker Narrative: Pain controlled, no nausea, yesterday underwent CT guided drainage of subphrenic abscess with catheter placement and drainage of pelvic abscess, WBC 16 remaining afebrile. 325cc from drain past 24hours, 115cc/24h from LO Exam Vital Signs Temp Pulse Resp BP Pulse Ox O2 Del Method O2 Flow Rate 97.2 F 120 H 20 101/68 97 Room Air 3 12/03/24 08:00 12/03/24 09:00 12/03/24 08:00 12/03/24 09:00 12/03/24 08:00 12/03/24 08:00 12/02/24 13:50 FiO2 21 11/25/24 10:16 Constitutional Constitutional: no acute distress Routine Respiratory Exam Respiratory: Present no resp distress Routine Abdominal Exam Abdominal: Present soft and drain (accordion drain with seropurulent output, LO with serous output); Absent tenderness or distended Results Results: Laboratory Laboratory results: results reviewed Assessment & Plan Plan 54F with RA chronically on prednisone, remote history of gastric bypass who initially presented with diarrhea, with subsequent findings of pneumoperitoneum on CT now s/p emergent laparotomy with repair of perforated gastrojejunostomy, washout and drain placement 11/23, recovering well with return of bowel function, now with abd and pelvic abscess s/p drainage 12/02 Strict I&O Continue abx Repeat CT when drain output <20cc/24h Advance diet as tolerated (pt prefers to stay on CLD for now) Procedures Procedures Repair of perforated gastrojejunostomy, Gerson patch, washout, drain placement
--- NOTE | 2024-12-03 13:43 | ESPR_ITS ---
<Statement entered by Julio Nichols MD - 12/03/24 18:50> Patient was seen and examined at the bedside this morning. Patient was not complaining of any abdominal pain she is post abscess drainage for subphrenic and pelvic abscess. Surgery recommended to closely monitor on drainage output and once it is less than 20 cc we will follow-up with repeat CT abdomen pelvis to rule out any more further abscess. Will currently continue with Zosyn and vancomycin. Electrolytes were repleted.Vancomycin was added for GPC on Gram stain from abscess. Patient denied having a bowel movement in the last 2 days. Blood pressure. All labs and orders were reviewed. I saw and examined the patient, and I agree with current management stated by Dr Emerson MD,PGY1. Plan of care was discussed with the attending physician and resident physician. Disclaimer: Despite multiple revisions, due to the dictation software being used, the document bellow may not be free of grammatical errors including phonetic/typographic errors. However, this does not deter from our commitment to providing health care in the patient's best interest in mind. Dr. Simone MD, PGY 2 Documentation for date of: 12/03/24 Subjective Subjective Interval history: No overnight events. Patient seen examined at bedside. Patient reports sedation improvement symptoms. Reports decreased abdominal pain, increased appetite. Denies shortness of breath, chest pain, fevers, chills. Has not had bowel movement in 2 days. Drains continue to output fluid. Plan to advance diet as tolerated by patient. Continue to monitor drains for output, continue IV antibiotics. Vancomycin added due to GPC on Gram stain from abscess. Exam Vital Signs Temp Pulse Resp BP Pulse Ox O2 Del Method O2 Flow Rate 97.2 F 120 H 20 101/68 97 Room Air 3 12/03/24 08:00 12/03/24 09:00 12/03/24 08:00 12/03/24 09:00 12/03/24 08:00 12/03/24 08:00 12/02/24 13:50 FiO2 21 11/25/24 10:16 Narrative Exam Gen: Well-developed and well-nourished obese female. Soft, scratchy voice. HEENT: NCAT, PERRLA, EOMI, MMM, anicteric conjunctivae. CVS: normal S1 and S2. Sinus tachycardia. No M/R/G. Resp: Decreased breath sounds B/L due to body habitus. No rhonchi, rales, crackles or wheezing. Abd: soft, mildly distended, s/p laparoscopy with midline abdominal scar, appears clean, wound VAC, subphrenic abscess drain, and LO drain in place. BS+ in all 4 quadrants. Diffuse mild tenderness, improved. MSK: Nonpitting edema BLE. Multiple ecchymosis dorsal surface BUE, significantly decreased edema compared to previous days. Neuro: grossly intact Objective Labs 12/03/24 05:00 12/03/24 05:00 Labs: Laboratory Results - last 24 hr 12/03/24 05:00 WBC 16.1 H RBC 2.50 L Hgb 7.9 L Hct 25.5 L MCV 102 H MCH 31.6 MCHC 31.0 RDW Std Deviation 51.2 H Plt Count 253 D Neut % (Auto) 80 Lymph % (Auto) 10 [place] % (Auto) 6 Eos % (Auto) 0 Baso % (Auto) 0 Neut # (Auto) 12.9 H Lymph # (Auto) 1.7 [place] # (Auto) 1.0 H Eos # (Auto) 0.1 Baso # (Auto) 0.1 Immature Gran # (Auto) 0.43 H Absolute Nucleated RBC 0.12 H Immature Gran % 3 H Nucleated RBC % 1 H Sodium 136 Potassium 3.6 Chloride 103 Carbon Dioxide 24.0 Anion Gap 9 BUN 9 Creatinine 0.8 Estim Creat Clear Calc 87.7 eGFR > 60 BUN/Creatinine Ratio 11 L Glucose 87 Calculated Osmolality 269 L Calcium 8.0 L Corrected Calcium 9.0 Phosphorus 2.6 Magnesium 1.7 Total Bilirubin 0.4 AST 44 H ALT 23 Alkaline Phosphatase 51 Total Protein 5.0 L Albumin 2.8 L Globulin 2.2 L Albumin/Globulin Ratio 1.3 ABG Interpretation ABG results: 11/22/24 11/23/24 11/23/24 17:58 02:09 04:07 ABG pH 7.25 L 7.22 L 7.26 L ABG pCO2 22 L 28 L 24 L ABG pO2 102 69 L D 94 D ABG HCO3 9 L* 12 L 11 L ABG O2 Saturation 97 89 L 95 ABG Base Excess -16 L -15 L -15 L 11/23/24 11/24/24 11/25/24 06:27 05:01 04:01 ABG pH 7.15 L* D 7.42 D 7.40 ABG pCO2 35 D 33 36 ABG pO2 355 H D 124 H D 92 D ABG HCO3 12 L 21 22 ABG O2 Saturation 100 H 99 H 97 ABG Base Excess -16 L -3 -2 Quality Measures Quality Measures VTE prophylaxis Assessment & Plan Assessment Current Active Medications: Generic Name Dose Route Start Last Admin Trade Name Freq PRN Reason Stop Dose Admin Acetaminophen 650 mg 11/30/24 11:31 Acetaminophen 325 Mg Tablet PO 12/30/24 11:30 Q6H PRN PAIN SCALE 1-3 (mild Al Hydrox/Mg Hydrox/Simethicone 30 ml 11/22/24 00:53 Mg Hyd/Al Hyd/Sandie (Maalox Reg) Susp 30 Ml Udc PO 12/22/24 00:52 Q4HR PRN UPSET STOMACH/INDIGESTION Albuterol/Ipratropium 3 ml 11/22/24 00:45 11/23/24 02:09 Albuterol/Ipratropium (Duoneb) Rt [place] 3 Ml Nebu INH 12/22/24 00:44 3 ml Q2HR PRN Administration SHORTNESS OF BREATH OR WHEEZE Benzocaine 0 dose 11/27/24 11:37 Benzocaine 20% (Hurricaine) [place] 1 Dose TOP 12/27/24 11:36 PRN PRN SORE THROAT Ciprofloxacin 500 mg 11/30/24 11:45 11/30/24 20:49 Ciprofloxacin Hcl 250 Mg Tablet PO 12/07/24 11:44 500 mg BID ZAK Administration Ambien Cr 12.5 Mg 0 ea 11/30/24 21:00 12/02/24 21:58 Tablet PO 12/30/24 20:59 1 tablet HS ZAK Administration Heparin Sodium (Porcine) 5,000 unit 11/28/24 21:00 12/03/24 09:00 Heparin Sod Inj 5000 Unit/Ml Vial SC 12/12/24 20:59 Not Given BID ZAK Piperacillin Sod/Tazobactam 100 mls @ 25 mls/hr 12/01/24 14:00 12/03/24 13:40 Sod 4.5 gm/ Sodium Chloride IV 12/08/24 13:59 25 mls/hr Q8HR ZAK Administration Protocol Vancomycin/Sodium Chloride 200 mls @ 120 mls/hr 12/03/24 11:00 12/03/24 12:27 Vancomycin/Ns 1 Gm Ivpb IV 12/10/24 10:59 120 mls/hr BID@1000,2200 ZAK Administration Protocol Levothyroxine Sodium 125 mcg 11/22/24 06:00 12/03/24 05:28 Levothyroxine Sodium 125 Mcg Tablet PO 12/22/24 05:59 125 mcg ACBR ZAK Administration Lidocaine 1 patch 11/26/24 13:00 Lidocaine 5% 1 Patch TOP 12/26/24 12:59 UD PRN PAIN Protocol Lisinopril 20 mg 11/27/24 16:45 12/03/24 08:59 Lisinopril 20 Mg Tablet PO 12/27/24 16:44 20 mg QDAY ZAK Administration Metronidazole 500 mg 11/30/24 14:00 12/01/24 05:15 Metronidazole 250 Mg Tablet PO 12/07/24 13:59 500 mg TID ZAK Administration Ondansetron HCl 4 mg 11/22/24 00:51 11/27/24 04:13 Ondansetron Inj 2 Mg/Ml Inj 2 Ml IV 12/22/24 00:50 4 mg Q6H PRN Administration NAUSEA OR VOMITING Protocol Oxycodone HCl 10 mg 12/02/24 11:09 12/03/24 10:37 Oxycodone Hcl 5 Mg Ir Tab PO 12/07/24 11:08 10 mg Q4H PRN Administration PAIN SCALE 4-10(Mod-Sev Pantoprazole Sodium 40 mg 11/30/24 21:00 12/03/24 09:00 Pantoprazole 40 Mg Tablet PO 12/30/24 20:59 40 mg BID ZAK Administration Pharmacy Consult 1 each 12/03/24 10:45 Vancomycin Pharmacy To Dose 1 Each Each IV 01/02/25 10:44 QDAY PRN CONSULT Potassium Phos/Sodium Phos 1 packet 11/29/24 09:15 12/03/24 09:00 [facility] 1 Packet (1.5 Gm) PO 12/29/24 09:14 1 packet BID ZAK Administration Prednisone 5 mg 12/01/24 09:00 12/03/24 08:59 Prednisone 5 Mg Tablet PO 12/31/24 08:59 5 mg QAM ZAK Administration Spironolactone 25 mg 11/26/24 14:30 12/03/24 09:00 Spironolactone 25 Mg Tablet PO 12/26/24 14:29 25 mg BID ZAK Administration Plan Ms. 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 #Perforated gastrojejunostomy s/p repair, Gerson patch, washout, drain placement. Patient presented with intractable watery diarrhea for the past week. No blood no mucus. Recent antibiotic use and also recent travel to [place] where she was eating local food. Patient chronically on prednisone and monoclonal antibody upadacitinib for RA. History of Lynn-en-Y gastric bypass 20 years ago. CTAP showed pneumoperitoneum, air droplets in the wall of the colon, suspicious for ischemic bowel. General surgeon Dr. Thao was consulted, on 11/23/24 patient underwent repair of perforated gastrojejunostomy, Gerson patch, washout, drain placement without complications. On admission labs showed lactic acid 2.3, LDH 352, WBC 4.9. KUB did not show significant abnormalities. CT angio C/A/P was canceled due to worsening kidney function. In the ED patient received 4L normal saline IVF bolus, azithromycin and ceftriaxone IV x 1, on admission started with vancomycin, Zosyn and fidaxomicin. Patient passed swallow screen, started on full liquid diet by surgery. NG tube discontinued. Giardia, ova and parasites, H. pylori, norovirus negative. Stool calprotectin 1989. Patient transition to oral diet, tolerating well. TPN discontinued. Patient had increased leukocytosis to 22.3 confirmed by repeat CBC. Afebrile, does not complain of increased abdominal pain. LO drain output slightly increased from previous, serosanguineous drainage mostly serous. CT chest abdomen pelvis with contrast showed a subphrenic abscess and a pelvic abscess. Gram stain showed rare GPC. -Clear liquid diet, will advance as tolerated, pend surgery recommendations -IV acetaminophen 1000mg q6hr -Oxycodone 10 mg every 4 hours as needed for pain -GI Dr. Palacios consulted, Appreciate recommendations. -Infectious disease Dr. Forte, Appreciate recommendations. -general surgery following. -CT guided drainage of abscesses -IV Zosyn and vancomycin -Monitor drain outputs #Pseudomonas PNA Sputum Gram stain positive for psudomonas on 11/26. Pt not experiencing fever, chest pain, SOB. WBC uptrending, afebrile. Patient was transition to p.o. antibiotics Flagyl and Cipro on 11/30, transitioned back following day due to increased leukocytosis. -zosyn 4.5 g every 8 hours for 7 days 11/26?12/03 (will continue Zosyn for coverage of abdominal abscesses) #Hx of hypertension. Home medication lisinopril 20 Mg p.o. daily. -Home medication resumed #Hx of rheumatoid arthritis. Patient has long history of rheumatoid arthritis, underwent multiple treatments with methotrexate and other DMARDs, currently on prednisone 10 mg and monoclonal antibody upadacitinib for prolonged time. Plan: -upadacitinib on hold. -Prednisone 5 mg p.o. daily #Normocytic anemia. Hemoglobin noted to drop to 8.2 from 10.8, likely related from surgical procedure on 11/23. No signs of active bleeding noted on 11/24. -Monitor with daily CBC. -Transfuse pRBC for hemoglobin < 7.0. #Hx of hypothyroidism. Unknown etiology, . Patient's home medication levothyroxine 125 mcg p.o. daily. Patient's last dose increase was 2 months ago Plan: -Resumed home levothyroxine FEN: Clear liquid diet DVT prophylaxis: Heparin GI prophylaxis: IV pantoprazole 40mg BID. Lines: Central line, wound VAC, LO drain CODE STATUS: Full code. Plan of care discussed with senior resident Dr. Nichols PGY-[address] Edwards. Marcus Norman MD PGY-1 Attending Provider Attestation/Addendum I attest that I was physically present for the evaluation, physical examination, lab and imaging review of the patient with the residents. I discussed the case with the residents and agree with the findings and plans of care as documented above. At bedside, patient appears comfortable. Denies new complaints, and states her pain is well controlled. Noted mildly purulent serous fluid in the drain. Had more than 400cc over last 24 hours. Abdominal abscess culture gram stain shows GPC, we will add vancomycin. We will wait on the culture results. General surgery has been following, appreciate recommendations. Brandee Edwards MD
[2024-12-03] MEDS: AMBIEN 12.5 MG PO (20:23)
--- NOTE | 2024-12-03 21:02 | ESPR_ITS ---
Documentation for date of: 12/03/24 Subjective Subjective Interval history: Status post drainage of the subphrenic abscess in the pelvic abscess Passing flatus Exam Vital Signs Temp Pulse Resp BP Pulse Ox O2 Del Method O2 Flow Rate 97.5 F 103 H 18 117/73 97 Room Air 3 12/03/24 20:00 12/03/24 20:22 12/03/24 20:00 12/03/24 20:22 12/03/24 20:00 12/03/24 20:00 12/02/24 13:50 FiO2 21 11/25/24 10:16 Objective Labs 12/03/24 05:00 12/03/24 05:00 Labs: Laboratory Results - last 24 hr 12/03/24 05:00 WBC 16.1 H RBC 2.50 L Hgb 7.9 L Hct 25.5 L MCV 102 H MCH 31.6 MCHC 31.0 RDW Std Deviation 51.2 H Plt Count 253 D Neut % (Auto) 80 Lymph % (Auto) 10 [place] % (Auto) 6 Eos % (Auto) 0 Baso % (Auto) 0 Neut # (Auto) 12.9 H Lymph # (Auto) 1.7 [place] # (Auto) 1.0 H Eos # (Auto) 0.1 Baso # (Auto) 0.1 Immature Gran # (Auto) 0.43 H Absolute Nucleated RBC 0.12 H Immature Gran % 3 H Nucleated RBC % 1 H Sodium 136 Potassium 3.6 Chloride 103 Carbon Dioxide 24.0 Anion Gap 9 BUN 9 Creatinine 0.8 Estim Creat Clear Calc 87.7 eGFR > 60 BUN/Creatinine Ratio 11 L Glucose 87 Calculated Osmolality 269 L Calcium 8.0 L Corrected Calcium 9.0 Phosphorus 2.6 Magnesium 1.7 Total Bilirubin 0.4 AST 44 H ALT 23 Alkaline Phosphatase 51 Total Protein 5.0 L Albumin 2.8 L Globulin 2.2 L Albumin/Globulin Ratio 1.3 Impressions Impression: # Subphrenic abscess # Pelvic abscess Requiring IR drainage Continue to monitor ABG Interpretation ABG results: 11/22/24 11/23/24 11/23/24 17:58 02:09 04:07 ABG pH 7.25 L 7.22 L 7.26 L ABG pCO2 22 L 28 L 24 L ABG pO2 102 69 L D 94 D ABG HCO3 9 L* 12 L 11 L ABG O2 Saturation 97 89 L 95 ABG Base Excess -16 L -15 L -15 L 11/23/24 11/24/24 11/25/24 06:27 05:01 04:01 ABG pH 7.15 L* D 7.42 D 7.40 ABG pCO2 35 D 33 36 ABG pO2 355 H D 124 H D 92 D ABG HCO3 12 L 21 22 ABG O2 Saturation 100 H 99 H 97 ABG Base Excess -16 L -3 -2 Assessment & Plan A&P Narrative abx appear to target a late resp cx, cxr noted so rx is for apparent pneumonia as a complication of surgery presumptive peritonitis targeting of rare pseudomonas in resp cx up to you. max duration of abx for resp infection is 7d. and organism is s. to quinolones that are the same iv and po. will will again prn Time Spent With Patient Time: Total time spent is greater than 50% in coordination of care (as documented) at patient's floor/unit and/or counseling patient: Procedures Arterial Line Size (Gauge): 20
[2024-12-04] VITALS (11 sets, daily range): BP systolic 114–147; BP diastolic 70–84; PULSE 86–118; RESP 13–21; TEMP 36.2–36.8; O2SAT 95–98; BMI 41.5; BMI 42.7
[2024-12-04] MEDS: oxyCODONE HCL 5 MG IR TAB 10 MG PO ×3 (05:11→19:37)
[2024-12-04] MEDS: LEVOTHYROXINE SODIUM 125 MCG TABLET PO (05:11)
[2024-12-04] MEDS: guaiFENesin/DM TABLET 1 EACH PO (05:11)
[2024-12-04] MEDS: PIPER/TAZO INJ 4.5 GM in SODIUM CHLORIDE 0.9% 100 ML IV ×3 (05:11→21:40)
[2024-12-04 06:03] LABS: Basophils % (Auto) 0 % (0-2.5); Eosinophils # (Auto) 0.1 Thou/mm3 (0.0-0.5); Eosinophils % (Auto) 1 % (0-10); Hematocrit 23.6 % (36.0-46.0); Immature Granulocytes % (Auto) 2 % (0-0); Immature Granulocytes Auto 0.18 Thou/mm3 (0.00-0.00); Lymphocytes # (Auto) 1.1 Thou/mm3 (1.0-4.8); Lymphocytes % (Auto) 9 % (10-50); Mean Corpuscular HGB Conc 31.8 g/dl (31.0-37.0); Mean Corpuscular Hemoglobin 32.1 pg (25.0-35.0); Mean Corpuscular Volume 101 fL (80-100); Monocytes # (Auto) 0.7 Thou/mm3 (0.0-0.8); Monocytes % (Auto) 6 % (0-12); Neutrophils % (Auto) 82 % (37-80); Nucleated Red Blood Cell # 0.05 Thou/mm3 (0.00-0.00); Nucleated Red Blood Cell % 0 /100 WBC (0); Platelet Count 288 Thou/mm3 (140-440); RDW Standard Deviation 50.2 fL (36.4-46.3); Red Blood Count 2.34 Miln/mm3 (4.00-5.20); White Blood Count 12.2 Thou/mm3 (3.6-11.0)
[2024-12-04 06:04] LABS: Hemoglobin 7.5 g/dL (12.0-16.0)
[2024-12-04 06:36] LABS: Alanine Aminotransferase 20 U/L (10-49); Albumin, Serum 2.7 gm/dL (3.5-5.0); Albumin/Globulin Ratio 1.2 (1.2-2.2); Alkaline Phosphatase 47 U/L (46-116); Anion Gap 10 (7-16); Aspartate Amino Transferase 30 U/L (0-34); BUN/Creatinine Ratio 9 Ratio (12-20); Bilirubin,Total 0.4 mg/dL (0.3-1.2); Blood Urea Nitrogen 7 mg/dL (9-23); Calcium 7.6 mg/dL (8.3-10.6); Calcium (Corrected) 8.6 mg/dL (8.5-10.1); Carbon Dioxide 24.6 mMol/L (20.0-31.0); Chloride 104 mMol/L (98-107); Creatinine (Component) 0.8 mg/dL (0.6-1.3); Globulin 2.2 gm/dL (2.3-3.5); Glucose 104 mg/dL (74-106); Magnesium 1.8 mg/dL (1.6-2.6); Osmolality,Calculated 275 (275-295); Phosphorous 2.2 mg/dL (2.4-5.1); Potassium 3.5 mMol/L (3.4-5.1); Sodium 139 mMol/L (136-145); Total Protein 4.9 gm/dL (5.7-8.2); eGFR > 60 See Note
[2024-12-04] MEDS: POTASSIUM PHOS 15 MMOL in SODIUM CHLORIDE 0.9% 250 ML 245 ML 62.5 MMOL IV (08:53)
[2024-12-04] MEDS: Magnesium Sulfate 2 GM Ivpb 2 GM/50 ML BAG IV (08:56)
[2024-12-04] MEDS: HEPARIN SOD INJ 5000 UNIT/ML VIAL SC ×2 (09:01→21:40)
[2024-12-04] MEDS: NAPH,KPH MBDB 1 PACKET (1.5 GM) PO (09:02)
[2024-12-04] MEDS: PANTOPRAZOLE 40 MG TABLET PO ×2 (09:05→21:38)
[2024-12-04] MEDS: Lisinopril 20 MG TABLET PO (09:05)
[2024-12-04] MEDS: SPIRONOLACTONE 25 MG TABLET PO ×2 (09:05→21:39)
[2024-12-04] MEDS: predniSONE 5 MG TABLET PO (09:05)
--- NOTE | 2024-12-04 09:19 | PC.SS ---
SS follow up note; Dr Thao is following patient, not medically stable for discharge.
--- NOTE | 2024-12-04 09:49 | PC.NURSE ---
Per Dr. Mcgarry remove contact precautions
--- NOTE | 2024-12-04 11:00 | PD.SURPROG ---
Documentation for date of: 12/04/24 Subjective Subjective Brief History: 54F with rheumatoid arthritis on chronic prednisone, obesity presenting yesterday with diarrhea and abdominal pain. Pt had recently traveled to [place] and also took a z-natalie which completed 11/20, and had watery diarrhea. Today pt underwent CT AP with findings of pneumoperitoneum and droplets adjacent to colon, she is on two pressors which are being weaned PMH: RA, hypothyroidism PSHx: Gastric bypass surgery, appendectomy, abdominoplasty Meds: on prednisone for years, no antiplt or anticoagulation Allergies: Bactrim Social hx: Nonsmoker Narrative: Pain controlled, remaining afebrile, WBC 12, percutaneous drain with 475cc/24h, LO 22cc/24h Exam Vital Signs Temp Pulse Resp BP Pulse Ox O2 Del Method O2 Flow Rate 98.2 F 113 H 13 124/81 96 Room Air 3 12/04/24 08:15 12/04/24 09:05 12/04/24 08:15 12/04/24 09:05 12/04/24 08:15 12/04/24 08:15 12/02/24 13:50 FiO2 21 11/25/24 10:16 Constitutional Constitutional: no acute distress Routine Respiratory Exam Respiratory: Present no resp distress Routine Abdominal Exam Abdominal: Present soft; Absent tenderness or distended Results Results: Laboratory Laboratory results: results reviewed Assessment & Plan Plan 54F with RA chronically on prednisone, remote history of gastric bypass who initially presented with diarrhea, with subsequent findings of pneumoperitoneum on CT now s/p emergent laparotomy with repair of perforated gastrojejunostomy, washout and drain placement 11/23, recovering well with return of bowel function, now with abd and pelvic abscess s/p drainage 12/02 Strict I&O Continue abx Repeat CT when drain output <20cc/24h Procedures Procedures Repair of perforated gastrojejunostomy, Gerson patch, washout, drain placement
[2024-12-04] MEDS: VANCOMYCIN/NS 1 GM IVPB 200 ML IV ×2 (11:30→22:12)
--- NOTE | 2024-12-04 14:01 | ESPR_ITS ---
<Statement entered by Julio Nichols MD - 12/04/24 14:44> Patient was seen and examined at the bedside this morning. No acute overnight events reported no fever spike reported. Patient had 3 bowel movements of moderate quantity. LO drain had 22 cc. Wound is still draining 400 cc. Will continue with IV Zosyn and vancomycin. Wound cultures are still pending. Will likely repeat CT abdomen pelvis per surgeon recommendations once wound drain is less than 20 cc. Patient's diet was escalated to full liquid and TSH and FT4 was ordered due to persistent sinus tachycardia. Due to hemoglobin drop we ordered H&H at 5 PM to be followed up. Will follow with surgery further recommendations. All labs and orders were reviewed. I saw and examined the patient, and I agree with current management stated by Dr Emerson MD,PGY1. Plan of care was discussed with the attending physician and resident physician. Disclaimer: Despite multiple revisions, due to the dictation software being used, the document bellow may not be free of grammatical errors including phonetic/typographic errors. However, this does not deter from our commitment to providing health care in the patient's best interest in mind. Dr. Simone MD, PGY 2 Documentation for date of: 12/04/24 Subjective Subjective Interval history: No overnight events. Patient seen examined at bedside, reports objective improvement in symptoms. Still notes abdominal pain but improved from yesterday, appetite is improving, denies fevers or chills, nausea, vomiting, chest pain, shortness of breath. Has begun having bowel movements again. Diet advanced to full liquid. Have ultrasound PIV placed, then remove central line. Continue IV antibiotics. LO drain output 22, subphrenic abscess drain output 475. Exam Vital Signs Temp Pulse Resp BP Pulse Ox O2 Del Method O2 Flow Rate 97.8 F 114 H 15 117/76 96 Room Air 3 12/04/24 11:50 12/04/24 11:50 12/04/24 11:50 12/04/24 11:50 12/04/24 11:50 12/04/24 11:50 12/02/24 13:50 FiO2 21 11/25/24 10:16 Narrative Exam Gen: Well-developed and well-nourished obese female. Soft, scratchy voice. HEENT: NCAT, PERRLA, EOMI, MMM, anicteric conjunctivae. CVS: normal S1 and S2. Sinus tachycardia. No M/R/G. Resp: Decreased breath sounds B/L due to body habitus. No rhonchi, rales, crackles or wheezing. Abd: soft, mildly distended, s/p laparoscopy with midline abdominal scar, appears clean, wound VAC, subphrenic abscess drain, and LO drain in place. BS+ in all 4 quadrants. Diffuse mild tenderness, improved. MSK: Nonpitting edema BLE. Multiple ecchymosis dorsal surface BUE, significantly decreased edema compared to previous days. Neuro: grossly intact Objective Labs 12/04/24 04:47 12/04/24 04:47 Labs: Laboratory Results - last 24 hr 12/04/24 04:47 WBC 12.2 H RBC 2.34 L Hgb 7.5 L Hct 23.6 L MCV 101 H MCH 32.1 MCHC 31.8 RDW Std Deviation 50.2 H Plt Count 288 D Neut % (Auto) 82 H Lymph % (Auto) 9 L [place] % (Auto) 6 Eos % (Auto) 1 Baso % (Auto) 0 Neut # (Auto) 10.0 H Lymph # (Auto) 1.1 [place] # (Auto) 0.7 Eos # (Auto) 0.1 Baso # (Auto) 0.0 Immature Gran # (Auto) 0.18 H Absolute Nucleated RBC 0.05 H Immature Gran % 2 H Nucleated RBC % 0 Sodium 139 Potassium 3.5 Chloride 104 Carbon Dioxide 24.6 Anion Gap 10 BUN 7 L Creatinine 0.8 Estim Creat Clear Calc 99.0 eGFR > 60 BUN/Creatinine Ratio 9 L Glucose 104 Calculated Osmolality 275 Calcium 7.6 L Corrected Calcium 8.6 Phosphorus 2.2 L Magnesium 1.8 Total Bilirubin 0.4 AST 30 ALT 20 Alkaline Phosphatase 47 Total Protein 4.9 L Albumin 2.7 L Globulin 2.2 L Albumin/Globulin Ratio 1.2 ABG Interpretation ABG results: 11/22/24 11/23/24 11/23/24 17:58 02:09 04:07 ABG pH 7.25 L 7.22 L 7.26 L ABG pCO2 22 L 28 L 24 L ABG pO2 102 69 L D 94 D ABG HCO3 9 L* 12 L 11 L ABG O2 Saturation 97 89 L 95 ABG Base Excess -16 L -15 L -15 L 11/23/24 11/24/24 11/25/24 06:27 05:01 04:01 ABG pH 7.15 L* D 7.42 D 7.40 ABG pCO2 35 D 33 36 ABG pO2 355 H D 124 H D 92 D ABG HCO3 12 L 21 22 ABG O2 Saturation 100 H 99 H 97 ABG Base Excess -16 L -3 -2 Quality Measures Quality Measures VTE prophylaxis Assessment & Plan Assessment Current Active Medications: Generic Name Dose Route Start Last Admin Trade Name Freq PRN Reason Stop Dose Admin Acetaminophen 650 mg 11/30/24 11:31 Acetaminophen 325 Mg Tablet PO 12/30/24 11:30 Q6H PRN PAIN SCALE 1-3 (mild Al Hydrox/Mg Hydrox/Simethicone 30 ml 11/22/24 00:53 Mg Hyd/Al Hyd/Sandie (Maalox Reg) Susp 30 Ml Udc PO 12/22/24 00:52 Q4HR PRN UPSET STOMACH/INDIGESTION Albuterol/Ipratropium 3 ml 11/22/24 00:45 11/23/24 02:09 Albuterol/Ipratropium (Duoneb) Rt [place] 3 Ml Nebu INH 12/22/24 00:44 3 ml Q2HR PRN Administration SHORTNESS OF BREATH OR WHEEZE Benzocaine 0 dose 11/27/24 11:37 Benzocaine 20% (Hurricaine) [place] 1 Dose TOP 12/27/24 11:36 PRN PRN SORE THROAT Ciprofloxacin 500 mg 11/30/24 11:45 11/30/24 20:49 Ciprofloxacin Hcl 250 Mg Tablet PO 12/07/24 11:44 500 mg BID ZAK Administration Ambien Cr 12.5 Mg 0 ea 11/30/24 21:00 12/03/24 20:23 Tablet PO 12/30/24 20:59 1 tablet HS ZAK Administration Guaifenesin/Dextromethorphan 1 each 12/04/24 02:07 12/04/24 05:11 Guaifenesin/Dm Tablet PO 01/03/25 02:06 1 each BID PRN Administration COUGH Heparin Sodium (Porcine) 5,000 unit 11/28/24 21:00 12/04/24 09:01 Heparin Sod Inj 5000 Unit/Ml Vial SC 12/12/24 20:59 5,000 unit BID ZAK Administration Piperacillin Sod/Tazobactam 100 mls @ 25 mls/hr 12/01/24 14:00 12/04/24 13:11 Sod 4.5 gm/ Sodium Chloride IV 12/08/24 13:59 25 mls/hr Q8HR ZAK Administration Protocol Vancomycin/Sodium Chloride 200 mls @ 120 mls/hr 12/03/24 11:00 12/04/24 11:30 Vancomycin/Ns 1 Gm Ivpb IV 12/10/24 10:59 120 mls/hr BID@1000,2200 ZAK Administration Protocol Levothyroxine Sodium 125 mcg 11/22/24 06:00 12/04/24 05:11 Levothyroxine Sodium 125 Mcg Tablet PO 12/22/24 05:59 125 mcg ACBR ZAK Administration Lidocaine 1 patch 11/26/24 13:00 Lidocaine 5% 1 Patch TOP 12/26/24 12:59 UD PRN PAIN Protocol Lisinopril 20 mg 11/27/24 16:45 12/04/24 09:05 Lisinopril 20 Mg Tablet PO 12/27/24 16:44 20 mg QDAY ZAK Administration Metronidazole 500 mg 11/30/24 14:00 12/01/24 05:15 Metronidazole 250 Mg Tablet PO 12/07/24 13:59 500 mg TID ZAK Administration Ondansetron HCl 4 mg 11/22/24 00:51 11/27/24 04:13 Ondansetron Inj 2 Mg/Ml Inj 2 Ml IV 12/22/24 00:50 4 mg Q6H PRN Administration NAUSEA OR VOMITING Protocol Oxycodone HCl 10 mg 12/02/24 11:09 12/04/24 11:07 Oxycodone Hcl 5 Mg Ir Tab PO 12/07/24 11:08 10 mg Q4H PRN Administration PAIN SCALE 4-10(Mod-Sev Pantoprazole Sodium 40 mg 11/30/24 21:00 12/04/24 09:05 Pantoprazole 40 Mg Tablet PO 12/30/24 20:59 40 mg BID ZAK Administration Pharmacy Consult 1 each 12/03/24 10:45 Vancomycin Pharmacy To Dose 1 Each Each IV 01/02/25 10:44 QDAY PRN CONSULT Potassium Phos/Sodium Phos 1 packet 11/29/24 09:15 12/04/24 09:02 [facility] 1 Packet (1.5 Gm) PO 12/29/24 09:14 1 packet BID ZAK Administration Prednisone 5 mg 12/01/24 09:00 12/04/24 09:05 Prednisone 5 Mg Tablet PO 12/31/24 08:59 5 mg QAM ZAK Administration Spironolactone 25 mg 11/26/24 14:30 12/04/24 09:05 Spironolactone 25 Mg Tablet PO 12/26/24 14:29 25 mg BID ZAK Administration Plan Ms. 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 #Perforated gastrojejunostomy s/p repair, Gerson patch, washout, drain placement. Patient presented with intractable watery diarrhea for the past week. No blood no mucus. Recent antibiotic use and also recent travel to [place] where she was eating local food. Patient chronically on prednisone and monoclonal antibody upadacitinib for RA. History of Lynn-en-Y gastric bypass 20 years ago. CTAP showed pneumoperitoneum, air droplets in the wall of the colon, suspicious for ischemic bowel. General surgeon Dr. Thao was consulted, on 11/23/24 patient underwent repair of perforated gastrojejunostomy, Gerson patch, washout, drain placement without complications. On admission labs showed lactic acid 2.3, LDH 352, WBC 4.9. KUB did not show significant abnormalities. CT angio C/A/P was canceled due to worsening kidney function. In the ED patient received 4L normal saline IVF bolus, azithromycin and ceftriaxone IV x 1, on admission started with vancomycin, Zosyn and fidaxomicin. Patient passed swallow screen, started on full liquid diet by surgery. NG tube discontinued. Giardia, ova and parasites, H. pylori, norovirus negative. Stool calprotectin 1989. Patient transition to oral diet, tolerating well. TPN discontinued. Patient had increased leukocytosis to 22.3 confirmed by repeat CBC. Afebrile, does not complain of increased abdominal pain. LO drain output slightly increased from previous, serosanguineous drainage mostly serous. CT chest abdomen pelvis with contrast showed a subphrenic abscess and a pelvic abscess. Gram stain showed rare GPC. -Plan for ultrasound PIV to be placed, then remove central line -Full liquid diet, will advance as tolerated, pend surgery recommendations -IV acetaminophen 1000mg q6hr -Oxycodone 10 mg every 4 hours as needed for pain -GI Dr. Palacios consulted, Appreciate recommendations. -Infectious disease Dr. Forte, Appreciate recommendations. -general surgery following. -CT guided drainage of abscesses -IV Zosyn and vancomycin -Monitor drain outputs #Pseudomonas PNA, treatment completed Sputum Gram stain positive for psudomonas on 11/26. Pt not experiencing fever, chest pain, SOB. WBC uptrending, afebrile. Patient was transition to p.o. antibiotics Flagyl and Cipro on 11/30, transitioned back following day due to increased leukocytosis. -zosyn 4.5 g every 8 hours for 7 days 11/26?12/03 (will continue Zosyn for coverage of abdominal abscesses) #Hx of hypertension. Home medication lisinopril 20 Mg p.o. daily. -Home medication resumed #Hx of rheumatoid arthritis. Patient has long history of rheumatoid arthritis, underwent multiple treatments with methotrexate and other DMARDs, currently on prednisone 10 mg and monoclonal antibody upadacitinib for prolonged time. Plan: -upadacitinib on hold. -Prednisone 5 mg p.o. daily #Normocytic anemia. Hemoglobin noted to drop to 8.2 from 10.8, likely related from surgical procedure on 11/23. No signs of active bleeding noted on 11/24. -Monitor with daily CBC. -Transfuse pRBC for hemoglobin < 7.0. #Hx of hypothyroidism. Unknown etiology, . Patient's home medication levothyroxine 125 mcg p.o. daily. Patient's last dose increase was 2 months ago Plan: -Resumed home levothyroxine FEN: Full liquid diet DVT prophylaxis: Heparin GI prophylaxis: IV pantoprazole 40mg BID. Lines: Central line, wound VAC, LO drain CODE STATUS: Full code. Plan of care discussed with senior resident Dr. Nichols PGY-[address] Edwards. Marcus Norman MD PGY-1 Attending Provider Attestation/Addendum I attest that I was physically present for the evaluation, physical examination, lab and imaging review of the patient with the residents. I discussed the case with the residents and agree with the findings and plans of care as documented above. At bedside today, patient continues to complain of abdominal pain but states that her pain is controlled with analgesics. Only has minimal in drainage on her LO drain. Her abdominal drain had more than 400 cc in last 24 hours. Discussed with general surgery, recommended follow-up imaging once the drainage goes down to less than 20 cc/day. We will continue with IV antibiotics. Awaiting culture results. Patient noted to have mild tachycardia, we will obtain TSH and T4 levels. We will also advance her diet to full liquid diet. Plan to advance further if tolerated. Brandee Edwards MD
--- NOTE | 2024-12-04 14:37 | PD.IMPROG ---
Documentation for date of: 12/04/24 Subjective Subjective Interval history: Patient evaluated Hemoglobin hematocrit 7.4 and 23.1 Passing flatus IR drainage of the phrenic abscess and intra-abdominal abscess Exam Vital Signs Temp Pulse Resp BP Pulse Ox O2 Del Method O2 Flow Rate 97.8 F 114 H 15 117/76 96 Room Air 3 12/04/24 11:50 12/04/24 11:50 12/04/24 11:50 12/04/24 11:50 12/04/24 11:50 12/04/24 11:50 12/02/24 13:50 FiO2 21 11/25/24 10:16 Objective Labs 12/04/24 16:55 12/04/24 04:47 Labs: Laboratory Results - last 24 hr 12/04/24 04:47 WBC 12.2 H RBC 2.34 L Hgb 7.5 L Hct 23.6 L MCV 101 H MCH 32.1 MCHC 31.8 RDW Std Deviation 50.2 H Plt Count 288 D Neut % (Auto) 82 H Lymph % (Auto) 9 L [place] % (Auto) 6 Eos % (Auto) 1 Baso % (Auto) 0 Neut # (Auto) 10.0 H Lymph # (Auto) 1.1 [place] # (Auto) 0.7 Eos # (Auto) 0.1 Baso # (Auto) 0.0 Immature Gran # (Auto) 0.18 H Absolute Nucleated RBC 0.05 H Immature Gran % 2 H Nucleated RBC % 0 Sodium 139 Potassium 3.5 Chloride 104 Carbon Dioxide 24.6 Anion Gap 10 BUN 7 L Creatinine 0.8 Estim Creat Clear Calc 99.0 eGFR > 60 BUN/Creatinine Ratio 9 L Glucose 104 Calculated Osmolality 275 Calcium 7.6 L Corrected Calcium 8.6 Phosphorus 2.2 L Magnesium 1.8 Total Bilirubin 0.4 AST 30 ALT 20 Alkaline Phosphatase 47 Total Protein 4.9 L Albumin 2.7 L Globulin 2.2 L Albumin/Globulin Ratio 1.2 Impressions Impression: # Intra-abdominal abscess requiring IR drainage Continue current management ABG Interpretation ABG results: 11/22/24 11/23/24 11/23/24 17:58 02:09 04:07 ABG pH 7.25 L 7.22 L 7.26 L ABG pCO2 22 L 28 L 24 L ABG pO2 102 69 L D 94 D ABG HCO3 9 L* 12 L 11 L ABG O2 Saturation 97 89 L 95 ABG Base Excess -16 L -15 L -15 L 11/23/24 11/24/24 11/25/24 06:27 05:01 04:01 ABG pH 7.15 L* D 7.42 D 7.40 ABG pCO2 35 D 33 36 ABG pO2 355 H D 124 H D 92 D ABG HCO3 12 L 21 22 ABG O2 Saturation 100 H 99 H 97 ABG Base Excess -16 L -3 -2 Assessment & Plan A&P Narrative abx appear to target a late resp cx, cxr noted so rx is for apparent pneumonia as a complication of surgery presumptive peritonitis targeting of rare pseudomonas in resp cx up to you. max duration of abx for resp infection is 7d. and organism is s. to quinolones that are the same iv and po. will will again prn Time Spent With Patient Time: Total time spent is greater than 50% in coordination of care (as documented) at patient's floor/unit and/or counseling patient: Procedures Arterial Line Size (Gauge): 20
[2024-12-04 15:32] LABS: Free T4 (Free Thyroxine) 0.95 ng/dL (0.89-1.76); Thyroid Stimulating Hormone 31.98 uIU/mL (0.55-4.78)
[2024-12-04 17:24] LABS: Hematocrit 23.6 % (36.0-46.0)
[2024-12-04 17:31] LABS: Hemoglobin 7.4 g/dL (12.0-16.0)
[2024-12-04] MEDS: PROPRANOLOL 10 MG TABLET PO (17:34)
[2024-12-04] MEDS: AMBIEN 12.5 MG PO (21:38)
[2024-12-04 21:49] LABS: Vancomycin,Trough 18.2 mcg/mL (5.0-10.0)
[2024-12-05] VITALS (13 sets, daily range): BP systolic 118–136; BP diastolic 74–86; PULSE 65–101; RESP 16–20; TEMP 36–36.8; O2SAT 94–97
[2024-12-05] MEDS: LEVOTHYROXINE SODIUM 125 MCG TABLET PO (05:45)
[2024-12-05] MEDS: PIPER/TAZO INJ 4.5 GM in SODIUM CHLORIDE 0.9% 100 ML IV ×3 (05:46→22:32)
[2024-12-05] MEDS: oxyCODONE HCL 5 MG IR TAB 10 MG PO ×2 (05:52→13:25)
[2024-12-05 06:00] LABS: Basophils % (Auto) 0 % (0-2.5); Eosinophils # (Auto) 0.2 Thou/mm3 (0.0-0.5); Eosinophils % (Auto) 2 % (0-10); Hematocrit 23.2 % (36.0-46.0); Immature Granulocytes % (Auto) 1 % (0-0); Immature Granulocytes Auto 0.12 Thou/mm3 (0.00-0.00); Lymphocytes # (Auto) 1.2 Thou/mm3 (1.0-4.8); Lymphocytes % (Auto) 11 % (10-50); Mean Corpuscular HGB Conc 31.9 g/dl (31.0-37.0); Mean Corpuscular Hemoglobin 31.9 pg (25.0-35.0); Mean Corpuscular Volume 100 fL (80-100); Monocytes # (Auto) 0.8 Thou/mm3 (0.0-0.8); Monocytes % (Auto) 7 % (0-12); Neutrophils # (Auto) 8.8 Thou/mm3 (1.8-7.7); Neutrophils % (Auto) 79 % (37-80); Nucleated Red Blood Cell # 0.06 Thou/mm3 (0.00-0.00); Nucleated Red Blood Cell % 1 /100 WBC (0); Platelet Count 346 Thou/mm3 (140-440); RDW Standard Deviation 50.4 fL (36.4-46.3); Red Blood Count 2.32 Miln/mm3 (4.00-5.20); White Blood Count 11.1 Thou/mm3 (3.6-11.0)
[2024-12-05 06:02] LABS: Hemoglobin 7.4 g/dL (12.0-16.0)
[2024-12-05 06:34] LABS: Alanine Aminotransferase 20 U/L (10-49); Albumin, Serum 2.7 gm/dL (3.5-5.0); Albumin/Globulin Ratio 1.2 (1.2-2.2); Alkaline Phosphatase 48 U/L (46-116); Anion Gap 9 (7-16); Aspartate Amino Transferase 26 U/L (0-34); BUN/Creatinine Ratio 6 Ratio (12-20); Bilirubin,Total 0.3 mg/dL (0.3-1.2); Blood Urea Nitrogen 5 mg/dL (9-23); Calcium 7.8 mg/dL (8.3-10.6); Calcium (Corrected) 8.8 mg/dL (8.5-10.1); Carbon Dioxide 25.1 mMol/L (20.0-31.0); Chloride 105 mMol/L (98-107); Creatinine (Component) 0.8 mg/dL (0.6-1.3); Estimated Creatinine Clearance 100.6 mL/min (>60); Globulin 2.3 gm/dL (2.3-3.5); Glucose 96 mg/dL (74-106); Magnesium 1.8 mg/dL (1.6-2.6); Osmolality,Calculated 274 (275-295); Phosphorous 2.5 mg/dL (2.4-5.1); Potassium 3.7 mMol/L (3.4-5.1); Sodium 139 mMol/L (136-145); eGFR > 60 See Note
[2024-12-05] MEDS: Magnesium Sulfate 2 GM Ivpb 2 GM/50 ML BAG IV (10:28)
[2024-12-05] MEDS: HEPARIN SOD INJ 5000 UNIT/ML VIAL SC (10:28)
[2024-12-05] MEDS: Lisinopril 20 MG TABLET PO (10:29)
[2024-12-05] MEDS: PANTOPRAZOLE 40 MG TABLET PO ×2 (10:29→20:02)
[2024-12-05] MEDS: predniSONE 5 MG TABLET PO (10:29)
[2024-12-05] MEDS: SPIRONOLACTONE 25 MG TABLET PO ×2 (10:29→20:03)
[2024-12-05] MEDS: PROPRANOLOL 10 MG TABLET PO ×3 (10:29→23:52)
[2024-12-05] MEDS: Vancomycin Inj 750 MG in SODIUM CHLORIDE 0.9% 250 ML 250 ML 200 MG IV ×2 (10:42→22:32)
--- NOTE | 2024-12-05 13:33 | ESPR_ITS ---
Documentation for date of: 12/05/24 Subjective Subjective Interval history: No overnight events. Patient reports subjective improvement in symptoms. Mild abdominal tenderness. LO drain with minimal output, abscess drain with to 70 cc of purulent fluid. Patient tolerating diet well. Abscess culture grew gram-negative rods and gram- positive cocci, awaiting speciation. Continue IV antibiotics. Diet advanced to peptic ulcer bland. Exam Vital Signs Temp Pulse Resp BP Pulse Ox O2 Del Method O2 Flow Rate 98.0 F 94 20 130/80 96 Room Air 3 12/05/24 12:00 12/05/24 13:24 12/05/24 12:00 12/05/24 13:24 12/05/24 12:00 12/05/24 12:00 12/02/24 13:50 FiO2 21 11/25/24 10:16 Narrative Exam Gen: Well-developed and well-nourished obese female. Soft, scratchy voice. HEENT: NCAT, PERRLA, EOMI, MMM, anicteric conjunctivae. CVS: normal S1 and S2. Sinus tachycardia. No M/R/G. Resp: Decreased breath sounds B/L due to body habitus. No rhonchi, rales, crackles or wheezing. Abd: soft, mildly distended, s/p laparoscopy with midline abdominal scar, appears clean, wound VAC, subphrenic abscess drain, and LO drain in place. BS+ in all 4 quadrants. Diffuse mild tenderness, improved. MSK: Nonpitting edema BLE. Multiple ecchymosis dorsal surface BUE, significantly decreased edema compared to previous days. Neuro: grossly intact Objective Labs 12/05/24 05:45 12/05/24 05:45 Labs: Laboratory Results - last 24 hr 12/04/24 12/04/24 12/04/24 04:47 16:55 21:15 WBC RBC Hgb 7.4 L Hct 23.6 L MCV MCH MCHC RDW Std Deviation Plt Count Neut % (Auto) Lymph % (Auto) [place] % (Auto) Eos % (Auto) Baso % (Auto) Neut # (Auto) Lymph # (Auto) [place] # (Auto) Eos # (Auto) Baso # (Auto) Immature Gran # (Auto) Absolute Nucleated RBC Immature Gran % Nucleated RBC % Sodium Potassium Chloride Carbon Dioxide Anion Gap BUN Creatinine Estim Creat Clear Calc eGFR BUN/Creatinine Ratio Glucose Calculated Osmolality Calcium Corrected Calcium Phosphorus Magnesium Total Bilirubin AST ALT Alkaline Phosphatase Total Protein Albumin Globulin Albumin/Globulin Ratio TSH 31.98 H Free T4 0.95 Vancomycin Trough 18.2 H 12/05/24 05:45 WBC 11.1 H RBC 2.32 L Hgb 7.4 L Hct 23.2 L MCV 100 MCH 31.9 MCHC 31.9 RDW Std Deviation 50.4 H Plt Count 346 D Neut % (Auto) 79 Lymph % (Auto) 11 [place] % (Auto) 7 Eos % (Auto) 2 Baso % (Auto) 0 Neut # (Auto) 8.8 H Lymph # (Auto) 1.2 [place] # (Auto) 0.8 Eos # (Auto) 0.2 Baso # (Auto) 0.0 Immature Gran # (Auto) 0.12 H Absolute Nucleated RBC 0.06 H Immature Gran % 1 H Nucleated RBC % 1 H Sodium 139 Potassium 3.7 Chloride 105 Carbon Dioxide 25.1 Anion Gap 9 BUN 5 L Creatinine 0.8 Estim Creat Clear Calc 100.6 eGFR > 60 BUN/Creatinine Ratio 6 L Glucose 96 Calculated Osmolality 274 L Calcium 7.8 L Corrected Calcium 8.8 Phosphorus 2.5 Magnesium 1.8 Total Bilirubin 0.3 AST 26 ALT 20 Alkaline Phosphatase 48 Total Protein 5.0 L Albumin 2.7 L Globulin 2.3 Albumin/Globulin Ratio 1.2 TSH Free T4 Vancomycin Trough ABG Interpretation ABG results: 11/22/24 11/23/24 11/23/24 17:58 02:09 04:07 ABG pH 7.25 L 7.22 L 7.26 L ABG pCO2 22 L 28 L 24 L ABG pO2 102 69 L D 94 D ABG HCO3 9 L* 12 L 11 L ABG O2 Saturation 97 89 L 95 ABG Base Excess -16 L -15 L -15 L 11/23/24 11/24/24 11/25/24 06:27 05:01 04:01 ABG pH 7.15 L* D 7.42 D 7.40 ABG pCO2 35 D 33 36 ABG pO2 355 H D 124 H D 92 D ABG HCO3 12 L 21 22 ABG O2 Saturation 100 H 99 H 97 ABG Base Excess -16 L -3 -2 Quality Measures Quality Measures VTE prophylaxis Assessment & Plan Assessment Current Active Medications: Generic Name Dose Route Start Last Admin Trade Name Freq PRN Reason Stop Dose Admin Acetaminophen 650 mg 11/30/24 11:31 Acetaminophen 325 Mg Tablet PO 12/30/24 11:30 Q6H PRN PAIN SCALE 1-3 (mild Al Hydrox/Mg Hydrox/Simethicone 30 ml 11/22/24 00:53 Mg Hyd/Al Hyd/Sandie (Maalox Reg) Susp 30 Ml Udc PO 12/22/24 00:52 Q4HR PRN UPSET STOMACH/INDIGESTION Albuterol/Ipratropium 3 ml 11/22/24 00:45 11/23/24 02:09 Albuterol/Ipratropium (Duoneb) Rt [place] 3 Ml Nebu INH 12/22/24 00:44 3 ml Q2HR PRN Administration SHORTNESS OF BREATH OR WHEEZE Benzocaine 0 dose 11/27/24 11:37 Benzocaine 20% (Hurricaine) [place] 1 Dose TOP 12/27/24 11:36 PRN PRN SORE THROAT Ambien Cr 12.5 Mg 0 ea 11/30/24 21:00 12/04/24 21:38 Tablet PO 12/30/24 20:59 1 tablet HS ZAK Administration Guaifenesin/Dextromethorphan 1 each 12/04/24 02:07 12/04/24 05:11 Guaifenesin/Dm Tablet PO 01/03/25 02:06 1 each BID PRN Administration COUGH Heparin Sodium (Porcine) 5,000 unit 11/28/24 21:00 12/05/24 10:28 Heparin Sod Inj 5000 Unit/Ml Vial SC 12/12/24 20:59 5,000 unit BID ZAK Administration Piperacillin Sod/Tazobactam 100 mls @ 25 mls/hr 12/01/24 14:00 12/05/24 13:24 Sod 4.5 gm/ Sodium Chloride IV 12/08/24 13:59 25 mls/hr Q8HR ZAK Administration Protocol Vancomycin HCl 750 mg/ Sodium 250 mls @ 200 mls/hr 12/05/24 10:00 12/05/24 10:42 Chloride IV 12/12/24 09:59 10 mg/min Q12H ZAK 200 mls/hr Administration Protocol 10 MG/MIN Levothyroxine Sodium 125 mcg 11/22/24 06:00 12/05/24 05:45 Levothyroxine Sodium 125 Mcg Tablet PO 12/22/24 05:59 125 mcg ACBR ZAK Administration Lidocaine 1 patch 11/26/24 13:00 Lidocaine 5% 1 Patch TOP 12/26/24 12:59 UD PRN PAIN Protocol Lisinopril 20 mg 11/27/24 16:45 12/05/24 10:29 Lisinopril 20 Mg Tablet PO 12/27/24 16:44 20 mg QDAY ZAK Administration Metronidazole 500 mg 11/30/24 14:00 12/01/24 05:15 Metronidazole 250 Mg Tablet PO 12/07/24 13:59 500 mg TID ZAK Administration Ondansetron HCl 4 mg 11/22/24 00:51 11/27/24 04:13 Ondansetron Inj 2 Mg/Ml Inj 2 Ml IV 12/22/24 00:50 4 mg Q6H PRN Administration NAUSEA OR VOMITING Protocol Oxycodone HCl 10 mg 12/02/24 11:09 12/05/24 13:25 Oxycodone Hcl 5 Mg Ir Tab PO 12/07/24 11:08 10 mg Q4H PRN Administration PAIN SCALE 4-10(Mod-Sev Pantoprazole Sodium 40 mg 11/30/24 21:00 12/05/24 10:29 Pantoprazole 40 Mg Tablet PO 12/30/24 20:59 40 mg BID ZAK Administration Pharmacy Consult 1 each 12/03/24 10:45 Vancomycin Pharmacy To Dose 1 Each Each IV 01/02/25 10:44 QDAY PRN CONSULT Potassium Phos/Sodium Phos 1 packet 11/29/24 09:15 12/05/24 10:38 Naph,Counts Include [facility] Mbdb 1 Packet (1.5 Gm) PO 12/29/24 09:14 Not Given BID ZAK Prednisone 5 mg 12/01/24 09:00 12/05/24 10:29 Prednisone 5 Mg Tablet PO 12/31/24 08:59 5 mg QAM ZAK Administration Propranolol HCl 10 mg 12/05/24 08:15 12/05/24 13:24 Propranolol 10 Mg Tablet PO 01/04/25 08:14 10 mg TID ZAK Administration Spironolactone 25 mg 11/26/24 14:30 12/05/24 10:29 Spironolactone 25 Mg Tablet PO 12/26/24 14:29 25 mg BID ZAK Administration Plan Ms. 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 #Perforated gastrojejunostomy s/p repair, Gerson patch, washout, drain placement. Patient presented with intractable watery diarrhea for the past week. No blood no mucus. Recent antibiotic use and also recent travel to [place] where she was eating local food. Patient chronically on prednisone and monoclonal antibody upadacitinib for RA. History of Lynn-en-Y gastric bypass 20 years ago. CTAP showed pneumoperitoneum, air droplets in the wall of the colon, suspicious for ischemic bowel. General surgeon Dr. Thao was consulted, on 11/23/24 patient underwent repair of perforated gastrojejunostomy, Gerson patch, washout, drain placement without complications. On admission labs showed lactic acid 2.3, LDH 352, WBC 4.9. KUB did not show significant abnormalities. CT angio C/A/P was canceled due to worsening kidney function. In the ED patient received 4L normal saline IVF bolus, azithromycin and ceftriaxone IV x 1, on admission started with vancomycin, Zosyn and fidaxomicin. Patient passed swallow screen, started on full liquid diet by surgery. NG tube discontinued. Giardia, ova and parasites, H. pylori, norovirus negative. Stool calprotectin 1989. Patient transition to oral diet, tolerating well. TPN discontinued. Patient had increased leukocytosis to 22.3 confirmed by repeat CBC. Afebrile, does not complain of increased abdominal pain. LO drain output slightly increased from previous, serosanguineous drainage mostly serous. CT chest abdomen pelvis with contrast showed a subphrenic abscess and a pelvic abscess. Gram stain showed rare GPC. Abscess culture growing GNR and GPC. Diet advanced. PIV placed with US, central line D/C'd. -Peptic ulcer bland diet, will advance as tolerated, pend surgery recommendations -IV acetaminophen 1000mg q6hr -Oxycodone 10 mg every 4 hours as needed for pain -GI Dr. Palacios consulted, Appreciate recommendations. -Infectious disease Dr. Forte, Appreciate recommendations. -general surgery following. -IV Zosyn and vancomycin -Monitor drain outputs #Pseudomonas PNA, treatment completed Sputum Gram stain positive for psudomonas on 11/26. Pt not experiencing fever, chest pain, SOB. WBC uptrending, afebrile. Patient was transition to p.o. antibiotics Flagyl and Cipro on 11/30, transitioned back following day due to increased leukocytosis. -zosyn 4.5 g every 8 hours for 7 days 11/26?12/03 (will continue Zosyn for coverage of abdominal abscesses) #Hx of hypertension. Home medication lisinopril 20 Mg p.o. daily. -Home medication resumed #Hx of rheumatoid arthritis. Patient has long history of rheumatoid arthritis, underwent multiple treatments with methotrexate and other DMARDs, currently on prednisone 10 mg and monoclonal antibody upadacitinib for prolonged time. Plan: -upadacitinib on hold. -Prednisone 5 mg p.o. daily #Normocytic anemia. Hemoglobin noted to drop to 8.2 from 10.8, likely related from surgical procedure on 11/23. No signs of active bleeding noted on 11/24. -Monitor with daily CBC. -Transfuse pRBC for hemoglobin < 7.0. #Hx of hypothyroidism. Unknown etiology, . Patient's home medication levothyroxine 125 mcg p.o. daily. Patient's last dose increase was 2 months ago Plan: -Resumed home levothyroxine FEN: Peptic ulcer plan diet DVT prophylaxis: Heparin GI prophylaxis: IV pantoprazole 40mg BID. Lines: Central line, wound VAC, LO drain CODE STATUS: Full code. Plan of care discussed with senior resident Dr. Tatum PGY-[address] Edwards. Marcus Norman MD PGY-1 Attending Provider Attestation/Addendum I attest that I was physically present for the evaluation, physical examination, lab and imaging review of the patient with the residents. I discussed the case with the residents and agree with the findings and plans of care as documented above. At bedside, patient continues to complain of pain but controlled on analgesics. She continues to have significant drainage from abdominal abscess. Surgery following. Abdominal abscess culture grew gram-positive cocci and gram-negative rods. We will continue antibiotics waiting for final culture results. Patient received her PICC line today, we will discontinue her central line. Patient tolerated her full liquid diet, we will advance further. Brandee Edwards MD
--- NOTE | 2024-12-05 15:47 | PD.IMPROG ---
Documentation for date of: 12/05/24 Subjective Subjective Interval history: Intra-abdominal drain in place Hemoglobin hematocrit 7.4 and 23.2 stable Downward trending WBC count Exam Vital Signs Temp Pulse Resp BP Pulse Ox O2 Del Method O2 Flow Rate 98.0 F 94 20 130/80 96 Room Air 3 12/05/24 12:00 12/05/24 13:24 12/05/24 12:00 12/05/24 13:24 12/05/24 12:00 12/05/24 12:00 12/02/24 13:50 FiO2 21 11/25/24 10:16 Constitutional Comments: Alert oriented Routine Respiratory Exam Comments: Normal to auscultation Routine Abdominal Exam Comments: Positive bowel sound IR drain in place Objective Labs 12/05/24 05:45 12/05/24 05:45 Labs: Laboratory Results - last 24 hr 12/04/24 12/04/24 12/05/24 16:55 21:15 05:45 WBC 11.1 H RBC 2.32 L Hgb 7.4 L 7.4 L Hct 23.6 L 23.2 L MCV 100 MCH 31.9 MCHC 31.9 RDW Std Deviation 50.4 H Plt Count 346 D Neut % (Auto) 79 Lymph % (Auto) 11 [place] % (Auto) 7 Eos % (Auto) 2 Baso % (Auto) 0 Neut # (Auto) 8.8 H Lymph # (Auto) 1.2 [place] # (Auto) 0.8 Eos # (Auto) 0.2 Baso # (Auto) 0.0 Immature Gran # (Auto) 0.12 H Absolute Nucleated RBC 0.06 H Immature Gran % 1 H Nucleated RBC % 1 H Sodium 139 Potassium 3.7 Chloride 105 Carbon Dioxide 25.1 Anion Gap 9 BUN 5 L Creatinine 0.8 Estim Creat Clear Calc 100.6 eGFR > 60 BUN/Creatinine Ratio 6 L Glucose 96 Calculated Osmolality 274 L Calcium 7.8 L Corrected Calcium 8.8 Phosphorus 2.5 Magnesium 1.8 Total Bilirubin 0.3 AST 26 ALT 20 Alkaline Phosphatase 48 Total Protein 5.0 L Albumin 2.7 L Globulin 2.3 Albumin/Globulin Ratio 1.2 Vancomycin Trough 18.2 H Impressions Impression: # Intra-abdominal fluid collection status/abscess IR drainage # Downward trending leukocytosis # Anemia blood loss Continue current management ABG Interpretation ABG results: 11/22/24 11/23/24 11/23/24 17:58 02:09 04:07 ABG pH 7.25 L 7.22 L 7.26 L ABG pCO2 22 L 28 L 24 L ABG pO2 102 69 L D 94 D ABG HCO3 9 L* 12 L 11 L ABG O2 Saturation 97 89 L 95 ABG Base Excess -16 L -15 L -15 L 11/23/24 11/24/24 11/25/24 06:27 05:01 04:01 ABG pH 7.15 L* D 7.42 D 7.40 ABG pCO2 35 D 33 36 ABG pO2 355 H D 124 H D 92 D ABG HCO3 12 L 21 22 ABG O2 Saturation 100 H 99 H 97 ABG Base Excess -16 L -3 -2 Assessment & Plan A&P Narrative abx appear to target a late resp cx, cxr noted so rx is for apparent pneumonia as a complication of surgery presumptive peritonitis targeting of rare pseudomonas in resp cx up to you. max duration of abx for resp infection is 7d. and organism is s. to quinolones that are the same iv and po. will will again prn Time Spent With Patient Time: Total time spent is greater than 50% in coordination of care (as documented) at patient's floor/unit and/or counseling patient: Procedures Arterial Line Size (Gauge): 20
--- NOTE | 2024-12-05 16:30 | PC.NURSE ---
triple lumen central catheter removed from Right internal jugular on 12/05/24 at 1630. dressing removed, site cleansed with chloraprep, sterile gloves applied and sutures removed, catheter slowly removed with ease, catheter intact, light pressure applied to Right IJ vein for 5 minutes with a 4x4 dressing, occlusive dressing applied, pt tolerated well.
[2024-12-05] MEDS: AMBIEN 12.5 MG PO (20:03)
[2024-12-06] VITALS (14 sets, daily range): BP systolic 101–138; BP diastolic 64–86; PULSE 90–97; RESP 15–18; TEMP 36.1–36.9; O2SAT 95–98
[2024-12-06] MEDS: oxyCODONE HCL 5 MG IR TAB 10 MG PO ×3 (00:41→15:26)
[2024-12-06] MEDS: PROPRANOLOL 10 MG TABLET PO ×2 (05:00→13:59)
[2024-12-06] MEDS: PIPER/TAZO INJ 4.5 GM in SODIUM CHLORIDE 0.9% 100 ML IV ×3 (05:00→21:49)
[2024-12-06] MEDS: LEVOTHYROXINE SODIUM 125 MCG TABLET PO (05:00)
[2024-12-06 05:33] LABS: Basophils % (Auto) 0 % (0-2.5); Eosinophils # (Auto) 0.1 Thou/mm3 (0.0-0.5); Eosinophils % (Auto) 1 % (0-10); Hematocrit 23.7 % (36.0-46.0); Immature Granulocytes % (Auto) 1 % (0-0); Immature Granulocytes Auto 0.06 Thou/mm3 (0.00-0.00); Lymphocytes # (Auto) 1.2 Thou/mm3 (1.0-4.8); Lymphocytes % (Auto) 15 % (10-50); Mean Corpuscular HGB Conc 31.6 g/dl (31.0-37.0); Mean Corpuscular Hemoglobin 31.6 pg (25.0-35.0); Mean Corpuscular Volume 100 fL (80-100); Monocytes # (Auto) 0.6 Thou/mm3 (0.0-0.8); Monocytes % (Auto) 8 % (0-12); Neutrophils % (Auto) 75 % (37-80); Nucleated Red Blood Cell # 0.04 Thou/mm3 (0.00-0.00); Nucleated Red Blood Cell % 1 /100 WBC (0); Platelet Count 355 Thou/mm3 (140-440); RDW Standard Deviation 50.7 fL (36.4-46.3); Red Blood Count 2.37 Miln/mm3 (4.00-5.20); White Blood Count 8.1 Thou/mm3 (3.6-11.0)
[2024-12-06 05:35] LABS: Hemoglobin 7.5 g/dL (12.0-16.0)
[2024-12-06 06:16] LABS: Alanine Aminotransferase 19 U/L (10-49); Albumin, Serum 2.7 gm/dL (3.5-5.0); Albumin/Globulin Ratio 1.2 (1.2-2.2); Alkaline Phosphatase 45 U/L (46-116); Anion Gap 8 (7-16); Aspartate Amino Transferase 23 U/L (0-34); BUN/Creatinine Ratio 7 Ratio (12-20); Bilirubin,Total 0.4 mg/dL (0.3-1.2); Blood Urea Nitrogen 6 mg/dL (9-23); Carbon Dioxide 25.8 mMol/L (20.0-31.0); Chloride 106 mMol/L (98-107); Creatinine (Component) 0.9 mg/dL (0.6-1.3); Estimated Creatinine Clearance 89.4 mL/min (>60); Globulin 2.3 gm/dL (2.3-3.5); Glucose 84 mg/dL (74-106); Magnesium 1.8 mg/dL (1.6-2.6); Osmolality,Calculated 276 (275-295); Potassium 3.7 mMol/L (3.4-5.1); Sodium 140 mMol/L (136-145); eGFR > 60 See Note
[2024-12-06] MEDS: Lisinopril 20 MG TABLET PO (08:14)
[2024-12-06] MEDS: PANTOPRAZOLE 40 MG TABLET PO ×2 (08:14→20:06)
[2024-12-06] MEDS: predniSONE 5 MG TABLET PO (08:15)
[2024-12-06] MEDS: SPIRONOLACTONE 25 MG TABLET PO ×2 (08:15→20:05)
[2024-12-06] MEDS: HEPARIN SOD INJ 5000 UNIT/ML VIAL SC ×2 (08:16→20:06)
[2024-12-06] MEDS: Vancomycin Inj 750 MG in SODIUM CHLORIDE 0.9% 250 ML 250 ML 200 MG IV (10:39)
--- NOTE | 2024-12-06 11:14 | ESPR_ITS ---
Documentation for date of: 12/06/24 Subjective Subjective Interval history: Patient was seen and examined at the bedside this morning. Patient reported that she did not had abdominal pain and has been passing small bowel movements with passage of gas. Patient's mother was present at bedside and they were explained that we are waiting on abscess drainage to be below [address] scan abdomen. Morning vitals were stable. No acute overnight events were reported. Labs were showing chronically low hemoglobin 7.5. Chemistry panel showed kidney functions within normal limits and electrolytes unremarkable. We discontinued vancomycin as wound cultures grew Pseudomonas sensitive to Zosyn. Will continue with Zosyn until 12/11. Surgeon recommended to repeat CT abdomen pelvis with contrast tomorrow morning as she still continued to have excess output on abscess drain. LO drain was less than 50 cc. Abscess drain was drained out while assessment of the patient and per chart review left abdominal drain 325 cc and medial abdomen 100 cc on 12/05. All labs and orders were reviewed. Exam Vital Signs Temp Pulse Resp BP Pulse Ox O2 Del Method O2 Flow Rate 97.2 F 94 18 120/76 97 Room Air 3 12/06/24 08:00 12/06/24 08:15 12/06/24 08:00 12/06/24 08:15 12/06/24 08:00 12/06/24 08:00 12/02/24 13:50 FiO2 21 11/25/24 10:16 Narrative Exam Gen: Well-developed and well-nourished obese female. Soft, scratchy voice. HEENT: NCAT, PERRLA, EOMI, MMM, anicteric conjunctivae. CVS: normal S1 and S2. Sinus tachycardia. No M/R/G. Resp: Decreased breath sounds B/L due to body habitus. No rhonchi, rales, crackles or wheezing. Abd: soft, mildly distended, s/p laparoscopy with midline abdominal scar, appears clean, wound VAC, subphrenic abscess drain, and LO drain in place. BS+ in all 4 quadrants. Diffuse mild tenderness, improved. MSK: Nonpitting edema BLE. Multiple ecchymosis dorsal surface BUE, significantly decreased edema compared to previous days. Neuro: grossly intact Objective Labs 12/06/24 05:07 12/06/24 05:07 Labs: Laboratory Results - last 24 hr 12/06/24 05:07 WBC 8.1 RBC 2.37 L Hgb 7.5 L Hct 23.7 L MCV 100 MCH 31.6 MCHC 31.6 RDW Std Deviation 50.7 H Plt Count 355 Neut % (Auto) 75 Lymph % (Auto) 15 [place] % (Auto) 8 Eos % (Auto) 1 Baso % (Auto) 0 Neut # (Auto) 6.0 Lymph # (Auto) 1.2 [place] # (Auto) 0.6 Eos # (Auto) 0.1 Baso # (Auto) 0.0 Immature Gran # (Auto) 0.06 H Absolute Nucleated RBC 0.04 H Immature Gran % 1 H Nucleated RBC % 1 H Sodium 140 Potassium 3.7 Chloride 106 Carbon Dioxide 25.8 Anion Gap 8 BUN 6 L Creatinine 0.9 Estim Creat Clear Calc 89.4 eGFR > 60 BUN/Creatinine Ratio 7 L Glucose 84 Calculated Osmolality 276 Calcium 8.0 L Corrected Calcium 9.0 Phosphorus 3.0 Magnesium 1.8 Total Bilirubin 0.4 AST 23 ALT 19 Alkaline Phosphatase 45 L Total Protein 5.0 L Albumin 2.7 L Globulin 2.3 Albumin/Globulin Ratio 1.2 ABG Interpretation ABG results: 11/22/24 11/23/24 11/23/24 17:58 02:09 04:07 ABG pH 7.25 L 7.22 L 7.26 L ABG pCO2 22 L 28 L 24 L ABG pO2 102 69 L D 94 D ABG HCO3 9 L* 12 L 11 L ABG O2 Saturation 97 89 L 95 ABG Base Excess -16 L -15 L -15 L 11/23/24 11/24/24 11/25/24 06:27 05:01 04:01 ABG pH 7.15 L* D 7.42 D 7.40 ABG pCO2 35 D 33 36 ABG pO2 355 H D 124 H D 92 D ABG HCO3 12 L 21 22 ABG O2 Saturation 100 H 99 H 97 ABG Base Excess -16 L -3 -2 Quality Measures Quality Measures VTE prophylaxis Assessment & Plan Assessment Current Active Medications: Generic Name Dose Route Start Last Admin Trade Name Freq PRN Reason Stop Dose Admin Acetaminophen 650 mg 11/30/24 11:31 Acetaminophen 325 Mg Tablet PO 12/30/24 11:30 Q6H PRN PAIN SCALE 1-3 (mild Al Hydrox/Mg Hydrox/Simethicone 30 ml 11/22/24 00:53 Mg Hyd/Al Hyd/Sandie (Maalox Reg) Susp 30 Ml Udc PO 12/22/24 00:52 Q4HR PRN UPSET STOMACH/INDIGESTION Albuterol/Ipratropium 3 ml 11/22/24 00:45 11/23/24 02:09 Albuterol/Ipratropium (Duoneb) Rt [place] 3 Ml Nebu INH 12/22/24 00:44 3 ml Q2HR PRN Administration SHORTNESS OF BREATH OR WHEEZE Benzocaine 0 dose 11/27/24 11:37 Benzocaine 20% (Hurricaine) [place] 1 Dose TOP 12/27/24 11:36 PRN PRN SORE THROAT Ambien Cr 12.5 Mg 0 ea 11/30/24 21:00 12/05/24 20:03 Tablet PO 12/30/24 20:59 1 tablet HS ZAK Administration Guaifenesin/Dextromethorphan 1 each 12/04/24 02:07 12/04/24 05:11 Guaifenesin/Dm Tablet PO 01/03/25 02:06 1 each BID PRN Administration COUGH Heparin Sodium (Porcine) 5,000 unit 11/28/24 21:00 12/06/24 08:16 Heparin Sod Inj 5000 Unit/Ml Vial SC 12/12/24 20:59 5,000 unit BID ZAK Administration Piperacillin Sod/Tazobactam 100 mls @ 25 mls/hr 12/01/24 14:00 12/06/24 05:00 Sod 4.5 gm/ Sodium Chloride IV 12/11/24 21:00 25 mls/hr Q8HR ZAK Administration Protocol Levothyroxine Sodium 125 mcg 11/22/24 06:00 12/06/24 05:00 Levothyroxine Sodium 125 Mcg Tablet PO 12/22/24 05:59 125 mcg ACBR ZAK Administration Lidocaine 1 patch 11/26/24 13:00 Lidocaine 5% 1 Patch TOP 12/26/24 12:59 UD PRN PAIN Protocol Lisinopril 20 mg 11/27/24 16:45 12/06/24 08:14 Lisinopril 20 Mg Tablet PO 12/27/24 16:44 20 mg QDAY ZAK Administration Ondansetron HCl 4 mg 11/22/24 00:51 11/27/24 04:13 Ondansetron Inj 2 Mg/Ml Inj 2 Ml IV 12/22/24 00:50 4 mg Q6H PRN Administration NAUSEA OR VOMITING Protocol Oxycodone HCl 10 mg 12/02/24 11:09 12/06/24 07:23 Oxycodone Hcl 5 Mg Ir Tab PO 12/07/24 11:08 10 mg Q4H PRN Administration PAIN SCALE 4-10(Mod-Sev Pantoprazole Sodium 40 mg 11/30/24 21:00 12/06/24 08:14 Pantoprazole 40 Mg Tablet PO 12/30/24 20:59 40 mg BID ZAK Administration Pharmacy Consult 1 each 12/03/24 10:45 Vancomycin Pharmacy To Dose 1 Each Each IV 01/02/25 10:44 QDAY PRN CONSULT Potassium Phos/Sodium Phos 1 packet 11/29/24 09:15 12/06/24 08:16 [place],[facility] 1 Packet (1.5 Gm) PO 12/29/24 09:14 Not Given BID ZAK Prednisone 5 mg 12/01/24 09:00 12/06/24 08:15 Prednisone 5 Mg Tablet PO 12/31/24 08:59 5 mg QAM ZAK Administration Propranolol HCl 10 mg 12/05/24 08:15 12/06/24 05:00 Propranolol 10 Mg Tablet PO 01/04/25 08:14 10 mg TID ZAK Administration Spironolactone 25 mg 11/26/24 14:30 12/06/24 08:15 Spironolactone 25 Mg Tablet PO 12/26/24 14:29 25 mg BID ZAK Administration Plan Ms. 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 #Perforated gastrojejunostomy s/p repair, Gerson patch, washout, drain placement. Patient presented with intractable watery diarrhea for the past week. No blood no mucus. Recent antibiotic use and also recent travel to [place] where she was eating local food. Patient chronically on prednisone and monoclonal antibody upadacitinib for RA. History of Lynn-en-Y gastric bypass 20 years ago. CTAP showed pneumoperitoneum, air droplets in the wall of the colon, suspicious for ischemic bowel. General surgeon Dr. Thao was consulted, on 11/23/24 patient underwent repair of perforated gastrojejunostomy, Gerson patch, washout, drain placement without complications. On admission labs showed lactic acid 2.3, LDH 352, WBC 4.9. KUB did not show significant abnormalities. CT angio C/A/P was canceled due to worsening kidney function. In the ED patient received 4L normal saline IVF bolus, azithromycin and ceftriaxone IV x 1, on admission started with vancomycin, Zosyn and fidaxomicin. Patient passed swallow screen, started on full liquid diet by surgery. NG tube discontinued. Giardia, ova and parasites, H. pylori, norovirus negative. Stool calprotectin 1989. Patient transition to oral diet, tolerating well. TPN discontinued. Patient had increased leukocytosis to 22.3 confirmed by repeat CBC. Afebrile, does not complain of increased abdominal pain. LO drain output slightly increased from previous, serosanguineous drainage mostly serous. CT chest abdomen pelvis with contrast showed a subphrenic abscess and a pelvic abscess. Gram stain showed rare GPC. Abscess culture growing Pseudomonas sensitive to Zosyn. PIV placed with US, central line D/C'd. -Peptic ulcer bland diet, will advance as tolerated, pend surgery recommendations. Patient is passing small amount of stool and passing gas as well -Repeating CT abdomen pelvis with contrast tomorrow morning per surgery recommendation -IV acetaminophen 1000mg q6hr -Oxycodone 10 mg every 4 hours as needed for pain -GI Dr. Palacios consulted, Appreciate recommendations. -Infectious disease Dr. Forte, Appreciate recommendations. -general surgery following. -IV Zosyn until 12/11 to complete antibiotic course for abdominal abscess -Discontinued vancomycin, 12/06 -Monitor drain outputs #Pseudomonas PNA, treatment completed Sputum Gram stain positive for psudomonas on 11/26. Pt not experiencing fever, chest pain, SOB. WBC uptrending, afebrile. Patient was transition to p.o. antibiotics Flagyl and Cipro on 11/30, transitioned back following day due to increased leukocytosis. -zosyn 4.5 g every 8 hours for 7 days 11/26?12/03 (will continue Zosyn for coverage of abdominal abscesses) #Hx of hypertension. Home medication lisinopril 20 Mg p.o. daily. -Home medication resumed #Hx of rheumatoid arthritis. Patient has long history of rheumatoid arthritis, underwent multiple treatments with methotrexate and other DMARDs, currently on prednisone 10 mg and monoclonal antibody upadacitinib for prolonged time. Plan: -upadacitinib on hold. -Prednisone 5 mg p.o. daily #Normocytic anemia. Hemoglobin noted to drop to 8.2 from 10.8, likely related from surgical procedure on 11/23. No signs of active bleeding noted on 11/24. -Monitor with daily CBC. -Transfuse pRBC for hemoglobin < 7.0. #Hx of hypothyroidism. Unknown etiology, . Patient's home medication levothyroxine 125 mcg p.o. daily. Patient's last dose increase was 2 months ago Plan: -Resumed home levothyroxine FEN: Peptic ulcer plan diet DVT prophylaxis: Heparin GI prophylaxis: IV pantoprazole 40mg BID. Lines: Central line, wound VAC, LO drain CODE STATUS: Full code. Patient was seen and discussed with attending physician, Dr.Bishwakarma Dr. Simone MD, PGY 2 Attending Provider Attestation/Addendum I attest that I was physically present for the evaluation, physical examination, lab and imaging review of the patient with the residents. I discussed the case with the residents and agree with the findings and plans of care as documented above. At bedside today, patient appears comfortable and denies any abdominal pain. She only has minimal drainage on her LO drain. Her abdominal abscess drain has also decreased down significantly. Culture results came back, grew Pseudomonas aeruginosa sensitive to fluoroquinolones. We will switch her antibiotics to ciprofloxacin. Also grew Staphylococcus epidermidis, likely contaminant. Hemoglobin remained stable at 7.5 today. Discussed with surgery, stated if the drainage remains low we will plan for CT abdomen/pelvis tomorrow. Brandee Edwards MD
--- NOTE | 2024-12-06 12:34 | PD.IMPROG ---
Documentation for date of: 12/06/24 Subjective Subjective Interval history: Hemoglobin hematocrit 7.5 and 23.7 Subphrenic IR drainage tube in place Exam Vital Signs Temp Pulse Resp BP Pulse Ox O2 Del Method O2 Flow Rate 97.2 F 94 18 120/76 97 Room Air 3 12/06/24 08:00 12/06/24 08:15 12/06/24 08:00 12/06/24 08:15 12/06/24 08:00 12/06/24 08:00 12/02/24 13:50 FiO2 21 11/25/24 10:16 Objective Labs 12/06/24 05:07 12/06/24 05:07 Labs: Laboratory Results - last 24 hr 12/06/24 05:07 WBC 8.1 RBC 2.37 L Hgb 7.5 L Hct 23.7 L MCV 100 MCH 31.6 MCHC 31.6 RDW Std Deviation 50.7 H Plt Count 355 Neut % (Auto) 75 Lymph % (Auto) 15 [place] % (Auto) 8 Eos % (Auto) 1 Baso % (Auto) 0 Neut # (Auto) 6.0 Lymph # (Auto) 1.2 [place] # (Auto) 0.6 Eos # (Auto) 0.1 Baso # (Auto) 0.0 Immature Gran # (Auto) 0.06 H Absolute Nucleated RBC 0.04 H Immature Gran % 1 H Nucleated RBC % 1 H Sodium 140 Potassium 3.7 Chloride 106 Carbon Dioxide 25.8 Anion Gap 8 BUN 6 L Creatinine 0.9 Estim Creat Clear Calc 89.4 eGFR > 60 BUN/Creatinine Ratio 7 L Glucose 84 Calculated Osmolality 276 Calcium 8.0 L Corrected Calcium 9.0 Phosphorus 3.0 Magnesium 1.8 Total Bilirubin 0.4 AST 23 ALT 19 Alkaline Phosphatase 45 L Total Protein 5.0 L Albumin 2.7 L Globulin 2.3 Albumin/Globulin Ratio 1.2 Impressions Impression: # Intra-abdominal fluid collection/abscess requiring IR drainage Continue current management ABG Interpretation ABG results: 11/22/24 11/23/24 11/23/24 17:58 02:09 04:07 ABG pH 7.25 L 7.22 L 7.26 L ABG pCO2 22 L 28 L 24 L ABG pO2 102 69 L D 94 D ABG HCO3 9 L* 12 L 11 L ABG O2 Saturation 97 89 L 95 ABG Base Excess -16 L -15 L -15 L 11/23/24 11/24/24 11/25/24 06:27 05:01 04:01 ABG pH 7.15 L* D 7.42 D 7.40 ABG pCO2 35 D 33 36 ABG pO2 355 H D 124 H D 92 D ABG HCO3 12 L 21 22 ABG O2 Saturation 100 H 99 H 97 ABG Base Excess -16 L -3 -2 Assessment & Plan A&P Narrative abx appear to target a late resp cx, cxr noted so rx is for apparent pneumonia as a complication of surgery presumptive peritonitis targeting of rare pseudomonas in resp cx up to you. max duration of abx for resp infection is 7d. and organism is s. to quinolones that are the same iv and po. will will again prn Time Spent With Patient Time: Total time spent is greater than 50% in coordination of care (as documented) at patient's floor/unit and/or counseling patient: Procedures Arterial Line Size (Gauge): 20
[2024-12-06] MEDS: LIDOCAINE 5% 1 PATCH TOP (17:48)
[2024-12-06] MEDS: AMBIEN 12.5 MG PO (20:06)
[2024-12-06 22:28] LABS: Vancomycin,Trough 18.5 mcg/mL (5.0-10.0)
[2024-12-07] VITALS (13 sets, daily range): BP systolic 114–134; BP diastolic 71–81; PULSE 90–101; RESP 17–21; TEMP 35.9–37.2; O2SAT 95–99
[2024-12-07] MEDS: oxyCODONE HCL 5 MG IR TAB 10 MG PO ×3 (05:14→18:48)
[2024-12-07] MEDS: PROPRANOLOL 10 MG TABLET PO ×3 (05:15→21:12)
[2024-12-07] MEDS: LEVOTHYROXINE SODIUM 125 MCG TABLET PO (05:15)
[2024-12-07] MEDS: PIPER/TAZO INJ 4.5 GM in SODIUM CHLORIDE 0.9% 100 ML IV (05:15)
[2024-12-07 05:55] LABS: Basophils # (Auto) 0.1 Thou/mm3 (0.0-0.2); Basophils % (Auto) 1 % (0-2.5); Eosinophils # (Auto) 0.1 Thou/mm3 (0.0-0.5); Eosinophils % (Auto) 2 % (0-10); Hematocrit 24.8 % (36.0-46.0); Immature Granulocytes % (Auto) 1 % (0-0); Immature Granulocytes Auto 0.04 Thou/mm3 (0.00-0.00); Lymphocytes # (Auto) 1.2 Thou/mm3 (1.0-4.8); Lymphocytes % (Auto) 16 % (10-50); Mean Corpuscular HGB Conc 30.2 g/dl (31.0-37.0); Mean Corpuscular Hemoglobin 30.7 pg (25.0-35.0); Mean Corpuscular Volume 102 fL (80-100); Monocytes # (Auto) 0.6 Thou/mm3 (0.0-0.8); Monocytes % (Auto) 8 % (0-12); Neutrophils # (Auto) 5.4 Thou/mm3 (1.8-7.7); Neutrophils % (Auto) 73 % (37-80); Nucleated Red Blood Cell # 0.05 Thou/mm3 (0.00-0.00); Nucleated Red Blood Cell % 1 /100 WBC (0); Platelet Count 389 Thou/mm3 (140-440); RDW Standard Deviation 52.7 fL (36.4-46.3); Red Blood Count 2.44 Miln/mm3 (4.00-5.20); White Blood Count 7.3 Thou/mm3 (3.6-11.0)
[2024-12-07 05:57] LABS: Hemoglobin 7.5 g/dL (12.0-16.0)
[2024-12-07 06:26] LABS: Alanine Aminotransferase 20 U/L (10-49); Albumin, Serum 2.8 gm/dL (3.5-5.0); Albumin/Globulin Ratio 1.1 (1.2-2.2); Alkaline Phosphatase 45 U/L (46-116); Anion Gap 11 (7-16); Aspartate Amino Transferase 30 U/L (0-34); BUN/Creatinine Ratio 8 Ratio (12-20); Bilirubin,Total 0.4 mg/dL (0.3-1.2); Blood Urea Nitrogen 7 mg/dL (9-23); Calcium 8.2 mg/dL (8.3-10.6); Calcium (Corrected) 9.2 mg/dL (8.5-10.1); Carbon Dioxide 24.3 mMol/L (20.0-31.0); Chloride 106 mMol/L (98-107); Creatinine (Component) 0.9 mg/dL (0.6-1.3); Estimated Creatinine Clearance 89.4 mL/min (>60); Globulin 2.5 gm/dL (2.3-3.5); Glucose 87 mg/dL (74-106); Magnesium 1.7 mg/dL (1.6-2.6); Osmolality,Calculated 278 (275-295); Phosphorous 2.6 mg/dL (2.4-5.1); Potassium 3.5 mMol/L (3.4-5.1); Sodium 141 mMol/L (136-145); Total Protein 5.3 gm/dL (5.7-8.2); eGFR > 60 See Note
[2024-12-07] MEDS: POTASSIUM CHLORIDE 10% 20 MEQ/15 ML UDC 40 MEQ PO (09:12)
[2024-12-07] MEDS: Magnesium Sulfate 2 GM Ivpb 2 GM/50 ML BAG IV (09:12)
[2024-12-07] MEDS: CIPROFLOXACIN/D5w 400 MG IVPB 400 MG/200 ML BAG 200 MG IV ×2 (09:12→21:13)
[2024-12-07] MEDS: SPIRONOLACTONE 25 MG TABLET PO ×2 (09:13→21:12)
[2024-12-07] MEDS: Lisinopril 20 MG TABLET PO (09:13)
[2024-12-07] MEDS: predniSONE 5 MG TABLET PO (09:13)
[2024-12-07] MEDS: HEPARIN SOD INJ 5000 UNIT/ML VIAL SC ×2 (09:13→21:13)
[2024-12-07] MEDS: PANTOPRAZOLE 40 MG TABLET PO ×2 (09:13→21:12)
--- NOTE | 2024-12-07 10:38 | PC.SS ---
SS follow up note; CT of the ABD and pelvis is pending.
--- NOTE | 2024-12-07 13:03 | PD.SURPROG ---
Documentation for date of: 12/07/24 Subjective Subjective Brief History: 54F with rheumatoid arthritis on chronic prednisone, obesity presenting yesterday with diarrhea and abdominal pain. Pt had recently traveled to [place] and also took a z-natalie which completed 11/20, and had watery diarrhea. Today pt underwent CT AP with findings of pneumoperitoneum and droplets adjacent to colon, she is on two pressors which are being weaned PMH: RA, hypothyroidism PSHx: Gastric bypass surgery, appendectomy, abdominoplasty Meds: on prednisone for years, no antiplt or anticoagulation Allergies: Bactrim Social hx: Nonsmoker Narrative: Pain controlled, no nausea, remaining afebrile with WBC normal, accordion drain had 175cc/24h which is decreasing, scant output from LO Exam Vital Signs Temp Pulse Resp BP Pulse Ox O2 Del Method O2 Flow Rate 96.8 F 99 19 122/80 95 Room Air 3 12/07/24 12:00 12/07/24 12:00 12/07/24 12:12/07/24 12:12/07/24 12:12/07/24 12:12/02/24 13:50 FiO2 21 11/25/24 10:16 Constitutional Constitutional: no acute distress Routine Respiratory Exam Respiratory: Present no resp distress Routine Abdominal Exam Abdominal: Present soft, wound (midline wound with fibrinous tissue at base, no surrounding erythema) and drain (LO with scant serous output); Absent tenderness or distended Results Results: Laboratory Laboratory results: results reviewed Assessment & Plan Plan 54F with RA chronically on prednisone, remote history of gastric bypass who initially presented with diarrhea, with subsequent findings of pneumoperitoneum on CT now s/p emergent laparotomy with repair of perforated gastrojejunostomy, washout and drain placement 11/23, recovering well with return of bowel function, now with abd and pelvic abscess s/p drainage 12/02 Strict I&O Continue abx Repeat CT tomorrow 12/08 if drain output continues decreasing Procedures Procedures Repair of perforated gastrojejunostomy, Gerson patch, washout, drain placement
--- NOTE | 2024-12-07 13:20 | ESPR_ITS ---
<Statement entered by Julio Nichols MD - 12/07/24 13:33> Patient was seen and examined at the bedside this morning. Patient reported to have mild abdominal pain however reports feeling well and was passing bowel movement. She asked for details regarding her next imaging. We reported that patient still has output from her abscess drain therefore we will wait until tomorrow per surgery recommendation on CT abdomen pelvis with contrast and will continue on ciprofloxacin now until 12/12 to complete antibiotic course. White count is improving and hemoglobin is stable. Potassium was repleted. Propranolol is helping for patient's sinus tachycardia therefore we will continue with it. Blood pressure remained stable. All labs and orders were reviewed. Patient might need re authorization on 12/08 if she stays longer per social work case manager note. I saw and examined the patient, and I agree with current management stated by Dr Emerson MD,PGY1. Plan of care was discussed with the attending physician and resident physician. Disclaimer: Despite multiple revisions, due to the dictation software being used, the document bellow may not be free of grammatical errors including phonetic/typographic errors. However, this does not deter from our commitment to providing health care in the patient's best interest in mind. Dr. Simone MD, PGY 2 Documentation for date of: 12/07/24 Subjective Subjective Interval history: No overnight events. Patient seen and examined at bedside. Patient reports minimal change in symptoms. Complains of abdominal pain with significant left upper quadrant. Denies fever, chills, nausea, vomiting, chest pain, shortness of breath. Continue to monitor drain output, will repeat CT with drain output is low enough. Exam Vital Signs Temp Pulse Resp BP Pulse Ox O2 Del Method O2 Flow Rate 96.8 F 99 19 122/80 95 Room Air 3 12/07/24 12:00 12/07/24 12:00 12/07/24 12:00 12/07/24 12:12/07/24 12:12/07/24 12:12/02/24 13:50 FiO2 21 11/25/24 10:16 Narrative Exam Gen: Well-developed and well-nourished obese female. Soft, scratchy voice. HEENT: NCAT, PERRLA, EOMI, MMM, anicteric conjunctivae. CVS: normal S1 and S2. Sinus tachycardia. No M/R/G. Resp: Decreased breath sounds B/L due to body habitus. No rhonchi, rales, crackles or wheezing. Abd: soft, mildly distended, s/p laparoscopy with midline abdominal scar, appears clean, wound VAC, subphrenic abscess drain, and LO drain in place. BS+ in all 4 quadrants. Diffuse mild tenderness, most significant in LUQ. MSK: Nonpitting edema BLE. Multiple ecchymosis dorsal surface BUE, significantly decreased edema compared to previous days. Neuro: grossly intact Objective Labs 12/07/24 04:37 12/07/24 04:37 Labs: Laboratory Results - last 24 hr 12/06/24 12/07/24 21:47 04:37 WBC 7.3 RBC 2.44 L Hgb 7.5 L Hct 24.8 L MCV 102 H MCH 30.7 MCHC 30.2 L RDW Std Deviation 52.7 H Plt Count 389 D Neut % (Auto) 73 Lymph % (Auto) 16 [place] % (Auto) 8 Eos % (Auto) 2 Baso % (Auto) 1 Neut # (Auto) 5.4 Lymph # (Auto) 1.2 [place] # (Auto) 0.6 Eos # (Auto) 0.1 Baso # (Auto) 0.1 Immature Gran # (Auto) 0.04 H Absolute Nucleated RBC 0.05 H Immature Gran % 1 H Nucleated RBC % 1 H Sodium 141 Potassium 3.5 Chloride 106 Carbon Dioxide 24.3 Anion Gap 11 BUN 7 L Creatinine 0.9 Estim Creat Clear Calc 89.4 eGFR > 60 BUN/Creatinine Ratio 8 L Glucose 87 Calculated Osmolality 278 Calcium 8.2 L Corrected Calcium 9.2 Phosphorus 2.6 Magnesium 1.7 Total Bilirubin 0.4 AST 30 ALT 20 Alkaline Phosphatase 45 L Total Protein 5.3 L Albumin 2.8 L Globulin 2.5 Albumin/Globulin Ratio 1.1 L Vancomycin Trough 18.5 H ABG Interpretation ABG results: 11/22/24 11/23/24 11/23/24 17:58 02:09 04:07 ABG pH 7.25 L 7.22 L 7.26 L ABG pCO2 22 L 28 L 24 L ABG pO2 102 69 L D 94 D ABG HCO3 9 L* 12 L 11 L ABG O2 Saturation 97 89 L 95 ABG Base Excess -16 L -15 L -15 L 11/23/24 11/24/24 11/25/24 06:27 05:01 04:01 ABG pH 7.15 L* D 7.42 D 7.40 ABG pCO2 35 D 33 36 ABG pO2 355 H D 124 H D 92 D ABG HCO3 12 L 21 22 ABG O2 Saturation 100 H 99 H 97 ABG Base Excess -16 L -3 -2 Quality Measures Quality Measures VTE prophylaxis Assessment & Plan Assessment Current Active Medications: Generic Name Dose Route Start Last Admin Trade Name Freq PRN Reason Stop Dose Admin Acetaminophen 650 mg 11/30/24 11:31 Acetaminophen 325 Mg Tablet PO 12/30/24 11:30 Q6H PRN PAIN SCALE 1-3 (mild Al Hydrox/Mg Hydrox/Simethicone 30 ml 11/22/24 00:53 Mg Hyd/Al Hyd/Sandie (Maalox Reg) Susp 30 Ml Udc PO 12/22/24 00:52 Q4HR PRN UPSET STOMACH/INDIGESTION Albuterol/Ipratropium 3 ml 11/22/24 00:45 11/23/24 02:09 Albuterol/Ipratropium (Duoneb) Rt [place] 3 Ml Nebu INH 12/22/24 00:44 3 ml Q2HR PRN Administration SHORTNESS OF BREATH OR WHEEZE Benzocaine 0 dose 11/27/24 11:37 Benzocaine 20% (Hurricaine) [place] 1 Dose TOP 12/27/24 11:36 PRN PRN SORE THROAT Ambien Cr 12.5 Mg 0 ea 11/30/24 21:00 12/06/24 20:06 Tablet PO 12/30/24 20:59 1 tablet HS ZAK Administration Guaifenesin/Dextromethorphan 1 each 12/04/24 02:07 12/04/24 05:11 Guaifenesin/Dm Tablet PO 01/03/25 02:06 1 each BID PRN Administration COUGH Heparin Sodium (Porcine) 5,000 unit 11/28/24 21:00 12/07/24 09:13 Heparin Sod Inj 5000 Unit/Ml Vial SC 12/12/24 20:59 5,000 unit BID ZAK Administration Ciprofloxacin/Dextrose 400 mg in 200 mls @ 200 mls/hr 12/07/24 09:00 12/07/24 09:12 Cipro Ivpb IV 12/12/24 08:59 200 mls/hr Q12HR ZAK Administration Levothyroxine Sodium 125 mcg 11/22/24 06:00 12/07/24 05:15 Levothyroxine Sodium 125 Mcg Tablet PO 12/22/24 05:59 125 mcg ACBR ZAK Administration Lidocaine 1 patch 11/26/24 13:00 12/06/24 17:48 Lidocaine 5% 1 Patch TOP 12/26/24 12:59 1 patch UD PRN Administration PAIN Protocol Lisinopril 20 mg 11/27/24 16:45 12/07/24 09:13 Lisinopril 20 Mg Tablet PO 12/27/24 16:44 20 mg QDAY ZAK Administration Ondansetron HCl 4 mg 11/22/24 00:51 11/27/24 04:13 Ondansetron Inj 2 Mg/Ml Inj 2 Ml IV 12/22/24 00:50 4 mg Q6H PRN Administration NAUSEA OR VOMITING Protocol Oxycodone HCl 10 mg 12/07/24 11:34 12/07/24 11:55 Oxycodone Hcl 5 Mg Ir Tab PO 12/12/24 11:33 10 mg Q4H PRN Administration Breakthrough Pain Pantoprazole Sodium 40 mg 11/30/24 21:00 12/07/24 09:13 Pantoprazole 40 Mg Tablet PO 12/30/24 20:59 40 mg BID ZAK Administration Potassium Phos/Sodium Phos 1 packet 11/29/24 09:15 12/07/24 09:13 [place] 1 Packet (1.5 Gm) PO 12/29/24 09:14 Not Given BID ZAK Prednisone 5 mg 12/01/24 09:00 12/07/24 09:13 Prednisone 5 Mg Tablet PO 12/31/24 08:59 5 mg QAM ZAK Administration Propranolol HCl 10 mg 12/05/24 08:15 12/07/24 05:15 Propranolol 10 Mg Tablet PO 01/04/25 08:14 10 mg TID ZAK Administration Spironolactone 25 mg 11/26/24 14:30 12/07/24 09:13 Spironolactone 25 Mg Tablet PO 12/26/24 14:29 25 mg BID ZAK Administration Plan Ms. 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 #Perforated gastrojejunostomy s/p repair, Gerson patch, washout, drain placement. Patient presented with intractable watery diarrhea for the past week. No blood no mucus. Recent antibiotic use and also recent travel to [place] where she was eating local food. Patient chronically on prednisone and monoclonal antibody upadacitinib for RA. History of Lynn-en-Y gastric bypass 20 years ago. CTAP showed pneumoperitoneum, air droplets in the wall of the colon, suspicious for ischemic bowel. General surgeon Dr. Thao was consulted, on 11/23/24 patient underwent repair of perforated gastrojejunostomy, Gerson patch, washout, drain placement without complications. On admission labs showed lactic acid 2.3, LDH 352, WBC 4.9. KUB did not show significant abnormalities. CT angio C/A/P was canceled due to worsening kidney function. In the ED patient received 4L normal saline IVF bolus, azithromycin and ceftriaxone IV x 1, on admission started with vancomycin, Zosyn and fidaxomicin. Patient passed swallow screen, started on full liquid diet by surgery. NG tube discontinued. Giardia, ova and parasites, H. pylori, norovirus negative. Stool calprotectin 1989. Patient transition to oral diet, tolerating well. TPN discontinued. Patient had increased leukocytosis to 22.3 confirmed by repeat CBC. Afebrile, does not complain of increased abdominal pain. LO drain output slightly increased from previous, serosanguineous drainage mostly serous. CT chest abdomen pelvis with contrast showed a subphrenic abscess and a pelvic abscess. Gram stain showed rare GPC. Abscess culture growing Pseudomonas sensitive to Zosyn. PIV placed with US, central line D/C'd. -Peptic ulcer bland diet, will advance as tolerated, pend surgery recommendations. Patient is passing small amount of stool and passing gas as well -Repeating CT abdomen pelvis with contrast tomorrow morning per surgery recommendation -IV acetaminophen 1000mg q6hr -Oxycodone 10 mg every 4 hours as needed for pain -GI Dr. Palacios consulted, Appreciate recommendations. -Infectious disease Dr. Forte, Appreciate recommendations. -general surgery following. -IV Zosyn, changed to Cipro 40 mg IV every 12 hours until 12/11 to complete antibiotic course for abdominal abscess -Discontinued vancomycin, 12/06 -Monitor drain outputs #Pseudomonas PNA, treatment completed Sputum Gram stain positive for psudomonas on 11/26. Pt not experiencing fever, chest pain, SOB. WBC uptrending, afebrile. Patient was transition to p.o. antibiotics Flagyl and Cipro on 11/30, transitioned back following day due to increased leukocytosis. -zosyn 4.5 g every 8 hours for 7 days 11/26?12/03 (will continue Zosyn for coverage of abdominal abscesses) #Hx of hypertension. Home medication lisinopril 20 Mg p.o. daily. -Home medication resumed #Hx of rheumatoid arthritis. Patient has long history of rheumatoid arthritis, underwent multiple treatments with methotrexate and other DMARDs, currently on prednisone 10 mg and monoclonal antibody upadacitinib for prolonged time. Plan: -upadacitinib on hold. -Prednisone 5 mg p.o. daily #Normocytic anemia. Hemoglobin noted to drop to 8.2 from 10.8, likely related from surgical procedure on 11/23. No signs of active bleeding noted on 11/24. -Monitor with daily CBC. -Transfuse pRBC for hemoglobin < 7.0. #Hx of hypothyroidism. Unknown etiology, . Patient's home medication levothyroxine 125 mcg p.o. daily. Patient's last dose increase was 2 months ago Plan: -Resumed home levothyroxine FEN: Peptic ulcer plan diet DVT prophylaxis: Heparin GI prophylaxis: IV pantoprazole 40mg BID. Lines: Peripheral IV, wound VAC, LO drain, abscess drain CODE STATUS: Full code. Plan of care discussed with senior resident Dr. Nichols PGY?[address] Edwards. Marcus Norman MD PGY-1 Attending Provider Attestation/Addendum I attest that I was physically present for the evaluation, physical examination, lab and imaging review of the patient with the residents. I discussed the case with the residents and agree with the findings and plans of care as documented above. Add bedside, patient appears comfortable. Denies new complaints. Abdominal drain had 100cc collected in last 24 hours. Currently on IV ciprofloxacin. We will continue with drain, if it decreases we will plan for CT tomorrow as recommmended by General surgery. Brandee Edwards MD
--- NOTE | 2024-12-07 20:21 | PD.IMPROG ---
Documentation for date of: 12/07/24 Subjective Subjective Interval history: Patient evaluated passing flatus p.o. intake still lacking Exam Vital Signs Temp Pulse Resp BP Pulse Ox O2 Del Method O2 Flow Rate 97.3 F 99 18 120/77 96 Room Air 3 12/07/24 16:00 12/07/24 17:21 12/07/24 16:00 12/07/24 17:21 12/07/24 16:00 12/07/24 16:00 12/02/24 13:50 FiO2 21 11/25/24 10:16 Objective Labs 12/07/24 04:37 12/07/24 04:37 Labs: Laboratory Results - last 24 hr 12/06/24 12/07/24 21:47 04:37 WBC 7.3 RBC 2.44 L Hgb 7.5 L Hct 24.8 L MCV 102 H MCH 30.7 MCHC 30.2 L RDW Std Deviation 52.7 H Plt Count 389 D Neut % (Auto) 73 Lymph % (Auto) 16 [place] % (Auto) 8 Eos % (Auto) 2 Baso % (Auto) 1 Neut # (Auto) 5.4 Lymph # (Auto) 1.2 [place] # (Auto) 0.6 Eos # (Auto) 0.1 Baso # (Auto) 0.1 Immature Gran # (Auto) 0.04 H Absolute Nucleated RBC 0.05 H Immature Gran % 1 H Nucleated RBC % 1 H Sodium 141 Potassium 3.5 Chloride 106 Carbon Dioxide 24.3 Anion Gap 11 BUN 7 L Creatinine 0.9 Estim Creat Clear Calc 89.4 eGFR > 60 BUN/Creatinine Ratio 8 L Glucose 87 Calculated Osmolality 278 Calcium 8.2 L Corrected Calcium 9.2 Phosphorus 2.6 Magnesium 1.7 Total Bilirubin 0.4 AST 30 ALT 20 Alkaline Phosphatase 45 L Total Protein 5.3 L Albumin 2.8 L Globulin 2.5 Albumin/Globulin Ratio 1.1 L Vancomycin Trough 18.5 H Impressions Impression: Subdiaphragmatic abscess requiring IR drainage postoperatively continue current management ABG Interpretation ABG results: 11/22/24 11/23/24 11/23/24 17:58 02:09 04:07 ABG pH 7.25 L 7.22 L 7.26 L ABG pCO2 22 L 28 L 24 L ABG pO2 102 69 L D 94 D ABG HCO3 9 L* 12 L 11 L ABG O2 Saturation 97 89 L 95 ABG Base Excess -16 L -15 L -15 L 11/23/24 11/24/24 11/25/24 06:27 05:01 04:01 ABG pH 7.15 L* D 7.42 D 7.40 ABG pCO2 35 D 33 36 ABG pO2 355 H D 124 H D 92 D ABG HCO3 12 L 21 22 ABG O2 Saturation 100 H 99 H 97 ABG Base Excess -16 L -3 -2 Assessment & Plan A&P Narrative abx appear to target a late resp cx, cxr noted so rx is for apparent pneumonia as a complication of surgery presumptive peritonitis targeting of rare pseudomonas in resp cx up to you. max duration of abx for resp infection is 7d. and organism is s. to quinolones that are the same iv and po. will will again prn Time Spent With Patient Time: Total time spent is greater than 50% in coordination of care (as documented) at patient's floor/unit and/or counseling patient: Procedures Arterial Line Size (Gauge): 20
[2024-12-07] MEDS: NAPH,KPH MBDB 1 PACKET (1.5 GM) PO (21:12)
[2024-12-07] MEDS: AMBIEN 12.5 MG PO (21:13)
[2024-12-08] VITALS (17 sets, daily range): BP systolic 107–130; BP diastolic 67–82; PULSE 79–100; RESP 16–20; TEMP 36.5–37.2; O2SAT 94–97; BMI 38.3
[2024-12-08] MEDS: LEVOTHYROXINE SODIUM 125 MCG TABLET PO (05:24)
[2024-12-08] MEDS: PROPRANOLOL 10 MG TABLET PO ×2 (05:24→14:07)
[2024-12-08] MEDS: oxyCODONE HCL 5 MG IR TAB 10 MG PO ×3 (05:27→19:37)
[2024-12-08 06:14] LABS: Basophils % (Auto) 1 % (0-2.5); Eosinophils # (Auto) 0.2 Thou/mm3 (0.0-0.5); Eosinophils % (Auto) 2 % (0-10); Immature Granulocytes % (Auto) 1 % (0-0); Immature Granulocytes Auto 0.05 Thou/mm3 (0.00-0.00); Lymphocytes # (Auto) 1.3 Thou/mm3 (1.0-4.8); Lymphocytes % (Auto) 18 % (10-50); Mean Corpuscular HGB Conc 30.4 g/dl (31.0-37.0); Mean Corpuscular Hemoglobin 30.9 pg (25.0-35.0); Mean Corpuscular Volume 102 fL (80-100); Monocytes # (Auto) 0.7 Thou/mm3 (0.0-0.8); Monocytes % (Auto) 9 % (0-12); Neutrophils # (Auto) 5.4 Thou/mm3 (1.8-7.7); Neutrophils % (Auto) 71 % (37-80); Nucleated Red Blood Cell # 0.03 Thou/mm3 (0.00-0.00); Nucleated Red Blood Cell % 0 /100 WBC (0); Platelet Count 384 Thou/mm3 (140-440); RDW Standard Deviation 54.2 fL (36.4-46.3); Red Blood Count 2.65 Miln/mm3 (4.00-5.20); White Blood Count 7.7 Thou/mm3 (3.6-11.0)
[2024-12-08 06:26] LABS: Hemoglobin 8.2 g/dL (12.0-16.0)
[2024-12-08 06:53] LABS: Anion Gap 11 (7-16); Blood Urea Nitrogen 7 mg/dL (9-23); Carbon Dioxide 24.1 mMol/L (20.0-31.0); Chloride 105 mMol/L (98-107); Creatinine (Component) 0.8 mg/dL (0.6-1.3); Potassium 3.2 mMol/L (3.4-5.1); Sodium 140 mMol/L (136-145)
[2024-12-08 06:54] LABS: Alanine Aminotransferase 21 U/L (10-49); Albumin, Serum 3.1 gm/dL (3.5-5.0); Albumin/Globulin Ratio 1.2 (1.2-2.2); Alkaline Phosphatase 47 U/L (46-116); Aspartate Amino Transferase 29 U/L (0-34); BUN/Creatinine Ratio 9 Ratio (12-20); Bilirubin,Total 0.3 mg/dL (0.3-1.2); Calcium 8.3 mg/dL (8.3-10.6); Estimated Creatinine Clearance 94.6 mL/min (>60); Globulin 2.6 gm/dL (2.3-3.5); Glucose 86 mg/dL (74-106); Magnesium 1.7 mg/dL (1.6-2.6); Osmolality,Calculated 276 (275-295); Phosphorous 2.5 mg/dL (2.4-5.1); Total Protein 5.7 gm/dL (5.7-8.2); eGFR > 60 See Note
[2024-12-08] MEDS: CIPROFLOXACIN/D5w 400 MG IVPB 400 MG/200 ML BAG 200 MG IV ×2 (08:21→20:06)
[2024-12-08] MEDS: HEPARIN SOD INJ 5000 UNIT/ML VIAL SC ×2 (08:21→20:07)
[2024-12-08] MEDS: NAPH,KPH MBDB 1 PACKET (1.5 GM) PO ×2 (08:21→20:07)
[2024-12-08] MEDS: predniSONE 5 MG TABLET PO (08:22)
[2024-12-08] MEDS: Lisinopril 20 MG TABLET PO (08:22)
[2024-12-08] MEDS: SPIRONOLACTONE 25 MG TABLET PO ×2 (08:22→20:07)
[2024-12-08] MEDS: PANTOPRAZOLE 40 MG TABLET PO ×2 (08:22→20:07)
[2024-12-08] MEDS: Magnesium Sulfate 2 GM Ivpb 2 GM/50 ML BAG IV (10:54)
[2024-12-08] MEDS: POTASSIUM CHLORIDE 20 mEq TABCR 40 MEQ PO (10:54)
--- NOTE | 2024-12-08 13:04 | PC.SS ---
SS follow up note; Surgery consult pending. Abscess is still draining.
--- NOTE | 2024-12-08 13:11 | ESPR_ITS ---
<Statement entered by Julio Nichols MD - 12/08/24 15:07> Patient was seen and examined at the bedside this morning. Patient reported that she is passing bowel movement and has had mild abdominal pain however she worked with the PT today and was feeling better. She still had abscess drained of 130 cc therefore we will likely wait on doing CT abdomen pelvis with contrast unless drain output is less than 20 cc per surgery recommendations. Labs are showing improvement in white count and hemoglobin remained stable. Electrolytes were repleted as potassium was 3.2 and magnesium was 1.7. Will continue with ciprofloxacin until 12/12. Blood pressure remained stable. All labs and orders were reviewed. I saw and examined the patient, and I agree with current management stated by Dr Emerson MD,PGY1. Plan of care was discussed with the attending physician and resident physician. Disclaimer: Despite multiple revisions, due to the dictation software being used, the document bellow may not be free of grammatical errors including phonetic/typographic errors. However, this does not deter from our commitment to providing health care in the patient's best interest in mind. Dr. Simone MD, PGY 2 Documentation for date of: 12/08/24 Subjective Subjective Interval history: No overnight events. Patient seen examined at bedside, resting comfortably in bed. Patient notes minimal change in symptoms, continues to have mild diffuse abdominal tenderness. Patient states she is having bowel movements without significant issue. Abscess drain continues to have significant output, will continue to monitor. Continue IV antibiotics. Continue to monitor drain output. Exam Vital Signs Temp Pulse Resp BP Pulse Ox O2 Del Method O2 Flow Rate 99.0 F 100 18 111/70 95 Room Air 3 12/08/24 11:36 12/08/24 12:36 12/08/24 11:36 12/08/24 11:36 12/08/24 11:36 12/08/24 11:36 12/08/24 11:36 FiO2 21 12/08/24 11:36 Narrative Exam Gen: Well-developed and well-nourished obese female. Soft, scratchy voice. HEENT: NCAT, PERRLA, EOMI, MMM, anicteric conjunctivae. CVS: normal S1 and S2. Sinus tachycardia. No M/R/G. Resp: Decreased breath sounds B/L due to body habitus. No rhonchi, rales, crackles or wheezing. Abd: soft, mildly distended, s/p laparoscopy with midline abdominal scar, appears clean, wound VAC, subphrenic abscess drain, and LO drain in place. BS+ in all 4 quadrants. Diffuse mild tenderness, most significant in LUQ. MSK: Edema BLE. Multiple ecchymosis dorsal surface BUE. Neuro: grossly intact Objective Labs 12/08/24 05:00 12/08/24 05:00 Labs: Laboratory Results - last 24 hr 12/08/24 05:00 WBC 7.7 RBC 2.65 L Hgb 8.2 L Hct 27.0 L MCV 102 H MCH 30.9 MCHC 30.4 L RDW Std Deviation 54.2 H Plt Count 384 Neut % (Auto) 71 Lymph % (Auto) 18 Orange % (Auto) 9 Eos % (Auto) 2 Baso % (Auto) 1 Neut # (Auto) 5.4 Lymph # (Auto) 1.3 Orange # (Auto) 0.7 Eos # (Auto) 0.2 Baso # (Auto) 0.0 Immature Gran # (Auto) 0.05 H Absolute Nucleated RBC 0.03 H Immature Gran % 1 H Nucleated RBC % 0 Sodium 140 Potassium 3.2 L Chloride 105 Carbon Dioxide 24.1 Anion Gap 11 BUN 7 L Creatinine 0.8 Estim Creat Clear Calc 94.6 eGFR > 60 BUN/Creatinine Ratio 9 L Glucose 86 Calculated Osmolality 276 Calcium 8.3 Corrected Calcium 9.0 Phosphorus 2.5 Magnesium 1.7 Total Bilirubin 0.3 AST 29 ALT 21 Alkaline Phosphatase 47 Total Protein 5.7 Albumin 3.1 L Globulin 2.6 Albumin/Globulin Ratio 1.2 ABG Interpretation ABG results: 11/22/24 11/23/24 11/23/24 17:58 02:09 04:07 ABG pH 7.25 L 7.22 L 7.26 L ABG pCO2 22 L 28 L 24 L ABG pO2 102 69 L D 94 D ABG HCO3 9 L* 12 L 11 L ABG O2 Saturation 97 89 L 95 ABG Base Excess -16 L -15 L -15 L 11/23/24 11/24/24 11/25/24 06:27 05:01 04:01 ABG pH 7.15 L* D 7.42 D 7.40 ABG pCO2 35 D 33 36 ABG pO2 355 H D 124 H D 92 D ABG HCO3 12 L 21 22 ABG O2 Saturation 100 H 99 H 97 ABG Base Excess -16 L -3 -2 Quality Measures Quality Measures VTE prophylaxis Assessment & Plan Assessment Current Active Medications: Generic Name Dose Route Start Last Admin Trade Name Freq PRN Reason Stop Dose Admin Acetaminophen 650 mg 11/30/24 11:31 Acetaminophen 325 Mg Tablet PO 12/30/24 11:30 Q6H PRN PAIN SCALE 1-3 (mild Al Hydrox/Mg Hydrox/Simethicone 30 ml 11/22/24 00:53 Mg Hyd/Al Hyd/Sandie (Maalox Reg) Susp 30 Ml Udc PO 12/22/24 00:52 Q4HR PRN UPSET STOMACH/INDIGESTION Albuterol/Ipratropium 3 ml 11/22/24 00:45 11/23/24 02:09 Albuterol/Ipratropium (Duoneb) Rt Marichuy 3 Ml Nebu INH 12/22/24 00:44 3 ml Q2HR PRN Administration SHORTNESS OF BREATH OR WHEEZE Benzocaine 0 dose 11/27/24 11:37 Benzocaine 20% (Hurricaine) [place] 1 Dose TOP 12/27/24 11:36 PRN PRN SORE THROAT Ambien Cr 12.5 Mg 0 ea 11/30/24 21:00 12/07/24 21:13 Tablet PO 12/30/24 20:59 1 tablet HS ZAK Administration Guaifenesin/Dextromethorphan 1 each 12/04/24 02:07 12/04/24 05:11 Guaifenesin/Dm Tablet PO 01/03/25 02:06 1 each BID PRN Administration COUGH Heparin Sodium (Porcine) 5,000 unit 11/28/24 21:00 12/08/24 08:21 Heparin Sod Inj 5000 Unit/Ml Vial SC 12/12/24 20:59 5,000 unit BID ZAK Administration Ciprofloxacin/Dextrose 400 mg in 200 mls @ 200 mls/hr 12/07/24 09:00 12/08/24 08:21 Cipro Ivpb IV 12/12/24 08:59 200 mls/hr Q12HR ZAK Administration Levothyroxine Sodium 125 mcg 11/22/24 06:00 12/08/24 05:24 Levothyroxine Sodium 125 Mcg Tablet PO 12/22/24 05:59 125 mcg ACBR ZAK Administration Lidocaine 1 patch 11/26/24 13:00 12/06/24 17:48 Lidocaine 5% 1 Patch TOP 12/26/24 12:59 1 patch UD PRN Administration PAIN Protocol Lisinopril 20 mg 11/27/24 16:45 12/08/24 08:22 Lisinopril 20 Mg Tablet PO 12/27/24 16:44 20 mg QDAY ZAK Administration Ondansetron HCl 4 mg 11/22/24 00:51 11/27/24 04:13 Ondansetron Inj 2 Mg/Ml Inj 2 Ml IV 12/22/24 00:50 4 mg Q6H PRN Administration NAUSEA OR VOMITING Protocol Oxycodone HCl 10 mg 12/07/24 11:34 12/08/24 11:03 Oxycodone Hcl 5 Mg Ir Tab PO 12/12/24 11:33 10 mg Q4H PRN Administration Breakthrough Pain Protocol Pantoprazole Sodium 40 mg 11/30/24 21:00 12/08/24 08:22 Pantoprazole 40 Mg Tablet PO 12/30/24 20:59 40 mg BID ZAK Administration Potassium Phos/Sodium Phos 1 packet 11/29/24 09:15 12/08/24 08:21 [facility] Mbdb 1 Packet (1.5 Gm) PO 12/29/24 09:14 1 packet BID ZAK Administration Prednisone 5 mg 12/01/24 09:00 12/08/24 08:22 Prednisone 5 Mg Tablet PO 12/31/24 08:59 5 mg QAM ZAK Administration Propranolol HCl 10 mg 12/05/24 08:15 12/08/24 05:24 Propranolol 10 Mg Tablet PO 01/04/25 08:14 10 mg TID ZAK Administration Spironolactone 25 mg 11/26/24 14:30 12/08/24 08:22 Spironolactone 25 Mg Tablet PO 12/26/24 14:29 25 mg BID ZAK Administration Plan Ms. 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 #Perforated gastrojejunostomy s/p repair, Gerson patch, washout, drain placement. Patient presented with intractable watery diarrhea for the past week. No blood no mucus. Recent antibiotic use and also recent travel to [place] where she was eating local food. Patient chronically on prednisone and monoclonal antibody upadacitinib for RA. History of Lynn-en-Y gastric bypass 20 years ago. CTAP showed pneumoperitoneum, air droplets in the wall of the colon, suspicious for ischemic bowel. General surgeon Dr. Thao was consulted, on 11/23/24 patient underwent repair of perforated gastrojejunostomy, Gerson patch, washout, drain placement without complications. On admission labs showed lactic acid 2.3, LDH 352, WBC 4.9. KUB did not show significant abnormalities. CT angio C/A/P was canceled due to worsening kidney function. In the ED patient received 4L normal saline IVF bolus, azithromycin and ceftriaxone IV x 1, on admission started with vancomycin, Zosyn and fidaxomicin. Patient passed swallow screen, started on full liquid diet by surgery. NG tube discontinued. Giardia, ova and parasites, H. pylori, norovirus negative. Stool calprotectin 1989. Patient transition to oral diet, tolerating well. TPN discontinued. Patient had increased leukocytosis to 22.3 confirmed by repeat CBC. Afebrile, does not complain of increased abdominal pain. LO drain output slightly increased from previous, serosanguineous drainage mostly serous. CT chest abdomen pelvis with contrast showed a subphrenic abscess and a pelvic abscess. Abscess culture growing Pseudomonas sensitive to Zosyn. PIV placed with US, central line D/C'd. -Peptic ulcer bland diet, will advance as tolerated, pend surgery recommendations. Patient is passing small amount of stool and passing gas as well -Repeating CT abdomen pelvis with contrast plan drain output low, per surgery recommendation -IV acetaminophen 1000mg q6hr -Oxycodone 10 mg every 4 hours as needed for pain -GI Dr. Palacios consulted, Appreciate recommendations. -Infectious disease Dr. Forte, Appreciate recommendations. -general surgery following. -IV Zosyn, changed to Cipro 40 mg IV every 12 hours until 12/11 to complete antibiotic course for abdominal abscess -Discontinued vancomycin, 12/06 -Monitor drain outputs #Pseudomonas PNA, treatment completed Sputum Gram stain positive for psudomonas on 11/26. Pt not experiencing fever, chest pain, SOB. WBC uptrending, afebrile. Patient was transition to p.o. antibiotics Flagyl and Cipro on 11/30, transitioned back following day due to increased leukocytosis. -zosyn 4.5 g every 8 hours for 7 days 11/26?12/03 #Anxiety Patient noted feeling anxious, had mild tachycardia, sinus. Resolved with propranolol. -Propranolol 10 mg 3 times daily #Hx of hypertension. Home medication lisinopril 20 Mg p.o. daily. -Home medication resumed #Hx of rheumatoid arthritis. Patient has long history of rheumatoid arthritis, underwent multiple treatments with methotrexate and other DMARDs, currently on prednisone 10 mg and monoclonal antibody upadacitinib for prolonged time. Plan: -upadacitinib on hold. -Prednisone 5 mg p.o. daily #Normocytic anemia. Hemoglobin noted to drop to 8.2 from 10.8, likely related from surgical procedure on 11/23. No signs of active bleeding noted on 11/24. -Monitor with daily CBC. -Transfuse pRBC for hemoglobin < 7.0. #Hx of hypothyroidism. Unknown etiology, . Patient's home medication levothyroxine 125 mcg p.o. daily. Patient's last dose increase was 2 months ago Plan: -Resumed home levothyroxine FEN: Peptic ulcer plan diet DVT prophylaxis: Heparin GI prophylaxis: IV pantoprazole 40mg BID. Lines: Peripheral IV, wound VAC, LO drain, abscess drain CODE STATUS: Full code. Plan of care discussed with senior resident Dr. Nichols PGY?[address] Edwards. Marcus Norman MD PGY-1 Attending Provider Attestation/Addendum I attest that I was physically present for the evaluation, physical examination, lab and imaging review of the patient with the residents. I discussed the case with the residents and agree with the findings and plans of care as documented above. At bedside today, patient continues to feel well and does not have any new complaints. Her abdominal abscess drain still produced 153 cc in last 24 hours. Continues to be on IV antibiotics. She was able to work with physical therapy today. Brandee Edwards MD
[2024-12-08] MEDS: AMBIEN 12.5 MG PO (20:07)
--- NOTE | 2024-12-08 20:46 | PD.IMPROG ---
Documentation for date of: 12/08/24 Subjective Subjective Interval history: Subphrenic drainage of abscess to continue significant output Having bowel movements able to tolerate p.o. diet Exam Vital Signs Temp Pulse Resp BP Pulse Ox O2 Del Method O2 Flow Rate 97.7 F 100 17 130/77 97 Room Air 3 12/08/24 20:00 12/08/24 20:07 12/08/24 20:00 12/08/24 20:07 12/08/24 20:00 12/08/24 20:00 12/08/24 11:36 FiO2 21 12/08/24 11:36 Objective Labs 12/08/24 05:00 12/08/24 05:00 Labs: Laboratory Results - last 24 hr 12/08/24 05:00 WBC 7.7 RBC 2.65 L Hgb 8.2 L Hct 27.0 L MCV 102 H MCH 30.9 MCHC 30.4 L RDW Std Deviation 54.2 H Plt Count 384 Neut % (Auto) 71 Lymph % (Auto) 18 [place] % (Auto) 9 Eos % (Auto) 2 Baso % (Auto) 1 Neut # (Auto) 5.4 Lymph # (Auto) 1.3 [place]aney # (Auto) 0.7 Eos # (Auto) 0.2 Baso # (Auto) 0.0 Immature Gran # (Auto) 0.05 H Absolute Nucleated RBC 0.03 H Immature Gran % 1 H Nucleated RBC % 0 Sodium 140 Potassium 3.2 L Chloride 105 Carbon Dioxide 24.1 Anion Gap 11 BUN 7 L Creatinine 0.8 Estim Creat Clear Calc 94.6 eGFR > 60 BUN/Creatinine Ratio 9 L Glucose 86 Calculated Osmolality 276 Calcium 8.3 Corrected Calcium 9.0 Phosphorus 2.5 Magnesium 1.7 Total Bilirubin 0.3 AST 29 ALT 21 Alkaline Phosphatase 47 Total Protein 5.7 Albumin 3.1 L Globulin 2.6 Albumin/Globulin Ratio 1.2 Impressions Impression: # Intra-abdominal fluid collection/abscess requiring IR drainage Continue current management ABG Interpretation ABG results: 11/22/24 11/23/24 11/23/24 17:58 02:09 04:07 ABG pH 7.25 L 7.22 L 7.26 L ABG pCO2 22 L 28 L 24 L ABG pO2 102 69 L D 94 D ABG HCO3 9 L* 12 L 11 L ABG O2 Saturation 97 89 L 95 ABG Base Excess -16 L -15 L -15 L 11/23/24 11/24/24 11/25/24 06:27 05:01 04:01 ABG pH 7.15 L* D 7.42 D 7.40 ABG pCO2 35 D 33 36 ABG pO2 355 H D 124 H D 92 D ABG HCO3 12 L 21 22 ABG O2 Saturation 100 H 99 H 97 ABG Base Excess -16 L -3 -2 Assessment & Plan A&P Narrative abx appear to target a late resp cx, cxr noted so rx is for apparent pneumonia as a complication of surgery presumptive peritonitis targeting of rare pseudomonas in resp cx up to you. max duration of abx for resp infection is 7d. and organism is s. to quinolones that are the same iv and po. will will again prn Time Spent With Patient Time: Total time spent is greater than 50% in coordination of care (as documented) at patient's floor/unit and/or counseling patient: Procedures Arterial Line Size (Gauge): 20
[2024-12-09] VITALS (14 sets, daily range): BP systolic 100–115; BP diastolic 61–86; PULSE 90–109; RESP 16–18; TEMP 36.1–36.7; O2SAT 92–99; BMI 12.0
[2024-12-09] MEDS: oxyCODONE HCL 5 MG IR TAB 10 MG PO ×4 (01:51→15:45)
[2024-12-09] MEDS: PROPRANOLOL 10 MG TABLET PO ×2 (05:21→14:52)
[2024-12-09] MEDS: LEVOTHYROXINE SODIUM 125 MCG TABLET PO (05:21)
[2024-12-09 06:22] LABS: Alanine Aminotransferase 20 U/L (10-49); Albumin, Serum 3.1 gm/dL (3.5-5.0); Albumin/Globulin Ratio 1.2 (1.2-2.2); Alkaline Phosphatase 47 U/L (46-116); Anion Gap 10 (7-16); Aspartate Amino Transferase 28 U/L (0-34); BUN/Creatinine Ratio 8 Ratio (12-20); Bilirubin,Total 0.4 mg/dL (0.3-1.2); Blood Urea Nitrogen 7 mg/dL (9-23); Calcium 8.5 mg/dL (8.3-10.6); Calcium (Corrected) 9.2 mg/dL (8.5-10.1); Carbon Dioxide 24.7 mMol/L (20.0-31.0); Chloride 104 mMol/L (98-107); Creatinine (Component) 0.9 mg/dL (0.6-1.3); Estimated Creatinine Clearance 85.1 mL/min (>60); Globulin 2.6 gm/dL (2.3-3.5); Glucose 92 mg/dL (74-106); Magnesium 1.7 mg/dL (1.6-2.6); Osmolality,Calculated 275 (275-295); Phosphorous 2.4 mg/dL (2.4-5.1); Potassium 3.7 mMol/L (3.4-5.1); Sodium 139 mMol/L (136-145); Total Protein 5.7 gm/dL (5.7-8.2); eGFR > 60 See Note
[2024-12-09] MEDS: LIDOCAINE 5% 1 PATCH TOP (06:37)
[2024-12-09 06:39] LABS: Immature Granulocytes % (Auto) 1 % (0-0); Lymphocytes # (Auto) 1.5 Thou/mm3 (1.0-4.8); Mean Corpuscular HGB Conc 30.2 g/dl (31.0-37.0); Mean Corpuscular Hemoglobin 30.8 pg (25.0-35.0); Mean Corpuscular Volume 102 fL (80-100); Monocytes # (Auto) 0.9 Thou/mm3 (0.0-0.8); Monocytes % (Auto) 11 % (0-12); Neutrophils # (Auto) 5.2 Thou/mm3 (1.8-7.7); Nucleated Red Blood Cell % 1 /100 WBC (0)
[2024-12-09 06:47] LABS: Basophils % (Auto) 0 % (0-2.5); Eosinophils # (Auto) 0.2 Thou/mm3 (0.0-0.5); Eosinophils % (Auto) 3 % (0-10); Hematocrit 26.5 % (36.0-46.0); Immature Granulocytes Auto 0.07 Thou/mm3 (0.00-0.00); Lymphocytes % (Auto) 19 % (10-50); Neutrophils % (Auto) 66 % (37-80); Platelet Count 301 Thou/mm3 (140-440); RDW Standard Deviation 55.4 fL (36.4-46.3); White Blood Count 7.8 Thou/mm3 (3.6-11.0)
[2024-12-09] MEDS: CIPROFLOXACIN/D5w 400 MG IVPB 400 MG/200 ML BAG 200 MG IV ×2 (08:12→20:00)
[2024-12-09] MEDS: NAPH,KPH MBDB 1 PACKET (1.5 GM) PO ×2 (08:13→20:00)
[2024-12-09] MEDS: HEPARIN SOD INJ 5000 UNIT/ML VIAL SC ×2 (08:13→20:06)
[2024-12-09] MEDS: PANTOPRAZOLE 40 MG TABLET PO ×2 (08:13→20:00)
[2024-12-09] MEDS: predniSONE 5 MG TABLET PO (08:14)
--- NOTE | 2024-12-09 09:01 | XR_ITS ---
Examination: CT abdomen with intravenous contrast CT pelvis with intravenous contrast 2-D coronal reconstructions 2-D sagittal reconstructions Date and time of exam:December 09, 2024 1215 hours INDICATIONS: History subphrenic abscess on CT abdomen pelvis December 01, 2024. CTDI: vol (mGy) 15.3 DLP: (mGycm) 923 Technique: Multiple axial sections of the abdomen and pelvis have been obtained. 64 slice high-resolution scanner used. 3 mm axial sections have been obtained, post intravenous injection 60 cc [id number] 2-D sagittal, coronal reconstructions obtained. Low dose protocols were performed. One or more of the following dose reduction techniques were used; automated exposure control, adjustment of the mA and/or KV according to patient size, use of iterative reconstruction technique. Findings: Left base pneumonia Mild left pleural fluid Subphrenic abscess drainage catheter satisfactory position with decrease in size of subphrenic abscess, reduced in size approximately 50% Absent gallbladder No hydronephrosis Surgical defect anterior abdomen The patient's left lower abdomen abscess is no longer identified There is a small pelvic abscess 4 cm x 2 cm which is not amenable to catheter drainage IMPRESSION: Left subphrenic abscess has decreased in size approximately 50%
--- NOTE | 2024-12-09 10:38 | PC.SS ---
Addendum entered by Aisha Callejas 12/09/24 14:43: SS met with patient at bedside to inform her that [facility] accepted her and would like to submit auth. Patient agreeable and verbalized for [facility] to submit auth. SS contacted Melisa and informed her that patient would like for her to proceed with submitting auth. Addendum entered by Aisha Callejas 12/09/24 11:59: SS met with patient and patient's mother, Hali. SS informed them that at the time the only facility that accepted patient is [facility] and [facility] is considering. All other facilities have declined due to insurance barriers. Patient's mother refused for patient to discharge to [facility]. SS informed her that if [facility] does not accept than the other option is for patient to discharge Home with HH. Patient's mother Verbalized understanding. Original Note: SS follow up note; SS followed up with Radha from [facility] in regards to resubmitting auth for patient. Radha informed SS that they are not able to take patient after all due to auth expiring and no female beds available. SS met with patient at bedside and updated her that SS would need to resubmit to other SNF. Patient verbalized understanding. SS resubmitted SNF inquiry through [facility] and will meet with patient once SNF's have accepted to provide choices. SS will stand by for further needs.
[2024-12-09] MEDS: SODIUM CL IRRIG SOLN 1,000 ML BAG IRRIG (11:45)
--- NOTE | 2024-12-09 11:53 | PD.SURPROG ---
Documentation for date of: 12/09/24 Subjective Subjective Brief History: 54F with rheumatoid arthritis on chronic prednisone, obesity presenting yesterday with diarrhea and abdominal pain. Pt had recently traveled to [place] and also took a z-natalie which completed 11/20, and had watery diarrhea. Today pt underwent CT AP with findings of pneumoperitoneum and droplets adjacent to colon, she is on two pressors which are being weaned PMH: RA, hypothyroidism PSHx: Gastric bypass surgery, appendectomy, abdominoplasty Meds: on prednisone for years, no antiplt or anticoagulation Allergies: Bactrim Social hx: Nonsmoker Narrative: Having a little more pain today in LUQ and at midline but feels it is controlled with medications, no nausea, tolerating diet (pt states she is eating as much as she does at baseline), remaining afebrile. Accordion drain had 250cc/24h, LO 10cc/24h, WBC remaining normal Exam Vital Signs Temp Pulse Resp BP Pulse Ox O2 Del Method O2 Flow Rate 97.9 F 101 H 16 100/63 99 Room Air 3 12/09/24 07:56 12/09/24 07:56 12/09/24 07:56 12/09/24 07:56 12/09/24 07:56 12/09/24 07:56 12/08/24 11:36 FiO2 21 12/08/24 11:36 Constitutional Constitutional: no acute distress Routine Respiratory Exam Respiratory: Present no resp distress Routine Abdominal Exam Abdominal: Present soft, wound (midline wound with fibrinous tissue at base, beefy red granulation tissue superficially, no surrounding erythema) and drain (percutaneous drain with cortez purulent output); Absent tenderness or distended Results Results: Laboratory Laboratory results: results reviewed Assessment & Plan Plan 54F with RA chronically on prednisone, remote history of gastric bypass who initially presented with diarrhea, with subsequent findings of pneumoperitoneum on CT now s/p emergent laparotomy with repair of perforated gastrojejunostomy, washout and drain placement 11/23, recovering well with return of bowel function, now with abd and pelvic abscess s/p drainage 12/02, with ongoing output CT AP to eval subphrenic abscess given ongoing output Procedures Procedures Repair of perforated gastrojejunostomy, Gerson patch, washout, drain placement
--- NOTE | 2024-12-09 13:20 | ESPR_ITS ---
<Statement entered by Julio Nichols MD - 12/09/24 14:35> I saw and examined the patient, and I agree with current management stated by Dr Ese Seo MD,PGY1. Plan of care was discussed with the attending physician and resident physician. Disclaimer: Despite multiple revisions, due to the dictation software being used, the document bellow may not be free of grammatical errors including phonetic/typographic errors. However, this does not deter from our commitment to providing health care in the patient's best interest in mind. Dr. Simone MD, PGY 2 Documentation for date of: 12/09/24 Subjective Subjective Interval history: Patient was seen and examined at the bedside this morning. Patient reported that she is having less abdominal pain and feel improved. CT abdomen pelvis was taken which showed 50% reduction of subphrenic abscess. Vitals showed blood pressure stable mild tachycardia. She was saturating well on room air. White count has down trended. Hemoglobin remained stable at 8.0. Electrolytes were unremarkable. Magnesium was repleted. Will wait for further surgery recommendations. Will continue with ciprofloxacin until 12/12 to complete course. All labs and orders were reviewed. Exam Vital Signs Temp Pulse Resp BP Pulse Ox O2 Del Method O2 Flow Rate 97.3 F 109 H 18 115/76 92 L Room Air 3 12/09/24 12:00 12/09/24 13:14 12/09/24 12:00 12/09/24 12:00 12/09/24 12:00 12/09/24 12:00 12/08/24 11:36 FiO2 21 12/08/24 11:36 Narrative Exam Gen: Well-developed and well-nourished obese female. Soft, scratchy voice. HEENT: NCAT, PERRLA, EOMI, MMM, anicteric conjunctivae. CVS: normal S1 and S2. Sinus tachycardia. No M/R/G. Resp: Decreased breath sounds B/L due to body habitus. No rhonchi, rales, crackles or wheezing. Abd: soft, mildly distended, s/p laparoscopy with midline abdominal scar, appears clean, wound VAC, subphrenic abscess drain, and LO drain in place. BS+ in all 4 quadrants. Diffuse mild tenderness, most significant in LUQ. MSK: Edema BLE. Multiple ecchymosis dorsal surface BUE. Neuro: grossly intact Objective Labs 12/10/24 04:38 12/10/24 04:38 Labs: Laboratory Results - last 24 hr 12/09/24 04:30 WBC 7.8 RBC 2.60 L Hgb 8.0 L Hct 26.5 L MCV 102 H MCH 30.8 MCHC 30.2 L RDW Std Deviation 55.4 H Plt Count 301 D Neut % (Auto) 66 Lymph % (Auto) 19 [place] % (Auto) 11 Eos % (Auto) 3 Baso % (Auto) 0 Neut # (Auto) 5.2 Lymph # (Auto) 1.5 [place] # (Auto) 0.9 H Eos # (Auto) 0.2 Baso # (Auto) 0.0 Immature Gran # (Auto) 0.07 H Absolute Nucleated RBC 0.10 H Immature Gran % 1 H Nucleated RBC % 1 H Sodium 139 Potassium 3.7 D Chloride 104 Carbon Dioxide 24.7 Anion Gap 10 BUN 7 L Creatinine 0.9 Estim Creat Clear Calc 85.1 eGFR > 60 BUN/Creatinine Ratio 8 L Glucose 92 Calculated Osmolality 275 Calcium 8.5 Corrected Calcium 9.2 Phosphorus 2.4 Magnesium 1.7 Total Bilirubin 0.4 AST 28 ALT 20 Alkaline Phosphatase 47 Total Protein 5.7 Albumin 3.1 L Globulin 2.6 Albumin/Globulin Ratio 1.2 ABG Interpretation ABG results: 11/22/24 11/23/24 11/23/24 17:58 02:09 04:07 ABG pH 7.25 L 7.22 L 7.26 L ABG pCO2 22 L 28 L 24 L ABG pO2 102 69 L D 94 D ABG HCO3 9 L* 12 L 11 L ABG O2 Saturation 97 89 L 95 ABG Base Excess -16 L -15 L -15 L 11/23/24 11/24/24 11/25/24 06:27 05:01 04:01 ABG pH 7.15 L* D 7.42 D 7.40 ABG pCO2 35 D 33 36 ABG pO2 355 H D 124 H D 92 D ABG HCO3 12 L 21 22 ABG O2 Saturation 100 H 99 H 97 ABG Base Excess -16 L -3 -2 Quality Measures Quality Measures VTE prophylaxis Assessment & Plan Assessment Current Active Medications: Generic Name Dose Route Start Last Admin Trade Name Freq PRN Reason Stop Dose Admin Acetaminophen 650 mg 11/30/24 11:31 Acetaminophen 325 Mg Tablet PO 12/30/24 11:30 Q6H PRN PAIN SCALE 1-3 (mild Al Hydrox/Mg Hydrox/Simethicone 30 ml 11/22/24 00:53 Mg Hyd/Al Hyd/Sandie (Maalox Reg) Susp 30 Ml Udc PO 12/22/24 00:52 Q4HR PRN UPSET STOMACH/INDIGESTION Albuterol/Ipratropium 3 ml 11/22/24 00:45 11/23/24 02:09 Albuterol/Ipratropium (Duoneb) Rt [place] 3 Ml Nebu INH 12/22/24 00:44 3 ml Q2HR PRN Administration SHORTNESS OF BREATH OR WHEEZE Benzocaine 0 dose 11/27/24 11:37 Benzocaine 20% (Hurricaine) [place] 1 Dose TOP 12/27/24 11:36 PRN PRN SORE THROAT Ambien Cr 12.5 Mg 0 ea 11/30/24 21:00 12/08/24 20:07 Tablet PO 12/30/24 20:59 1 tablet HS ZAK Administration Guaifenesin/Dextromethorphan 1 each 12/04/24 02:07 12/04/24 05:11 Guaifenesin/Dm Tablet PO 01/03/25 02:06 1 each BID PRN Administration COUGH Heparin Sodium (Porcine) 5,000 unit 11/28/24 21:00 12/09/24 08:13 Heparin Sod Inj 5000 Unit/Ml Vial SC 12/12/24 20:59 5,000 unit BID ZAK Administration Ciprofloxacin/Dextrose 400 mg in 200 mls @ 200 mls/hr 12/07/24 09:00 12/09/24 08:12 Cipro Ivpb IV 12/12/24 08:59 200 mls/hr Q12HR ZAK Administration Levothyroxine Sodium 125 mcg 11/22/24 06:00 12/09/24 05:21 Levothyroxine Sodium 125 Mcg Tablet PO 12/22/24 05:59 125 mcg ACBR ZAK Administration Lidocaine 1 patch 11/26/24 13:00 12/09/24 06:37 Lidocaine 5% 1 Patch TOP 12/26/24 12:59 1 patch UD PRN Administration PAIN Protocol Lisinopril 20 mg 11/27/24 16:45 12/09/24 08:39 Lisinopril 20 Mg Tablet PO 12/27/24 16:44 Not Given QDAY ZAK Ondansetron HCl 4 mg 11/22/24 00:51 11/27/24 04:13 Ondansetron Inj 2 Mg/Ml Inj 2 Ml IV 12/22/24 00:50 4 mg Q6H PRN Administration NAUSEA OR VOMITING Protocol Oxycodone HCl 10 mg 12/07/24 11:34 12/09/24 11:24 Oxycodone Hcl 5 Mg Ir Tab PO 12/12/24 11:33 10 mg Q4H PRN Administration Breakthrough Pain Protocol Pantoprazole Sodium 40 mg 11/30/24 21:00 12/09/24 08:13 Pantoprazole 40 Mg Tablet PO 12/30/24 20:59 40 mg BID ZAK Administration Potassium Phos/Sodium Phos 1 packet 11/29/24 09:15 12/09/24 08:13 Naph,[facility] Mbdb 1 Packet (1.5 Gm) PO 12/29/24 09:14 1 packet BID ZAK Administration Prednisone 5 mg 12/01/24 09:00 12/09/24 08:14 Prednisone 5 Mg Tablet PO 12/31/24 08:59 5 mg QAM ZAK Administration Propranolol HCl 10 mg 12/05/24 08:15 12/09/24 05:21 Propranolol 10 Mg Tablet PO 01/04/25 08:14 10 mg TID ZAK Administration Sodium Chloride 0 ml 12/09/24 12:15 Sodium Cl Irrig Soln 1,000 Ml Bag IRRIG 01/08/25 12:14 QDAY ZAK Spironolactone 25 mg 11/26/24 14:30 12/09/24 08:39 Spironolactone 25 Mg Tablet PO 12/26/24 14:29 Not Given BID ZAK Plan Ms. 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 #Perforated gastrojejunostomy s/p repair, Gerson patch, washout, drain placement #Post subphrenic and pelvic abscess drain Patient presented with intractable watery diarrhea for the past week. No blood no mucus. Recent antibiotic use and also recent travel to [place] where she was eating local food. Patient chronically on prednisone and monoclonal antibody upadacitinib for RA. History of Lynn-en-Y gastric bypass 20 years ago. CTAP showed pneumoperitoneum, air droplets in the wall of the colon, suspicious for ischemic bowel. General surgeon Dr. Thao was consulted, on 11/23/24 patient underwent repair of perforated gastrojejunostomy, Gerson patch, washout, drain placement without complications. On admission labs showed lactic acid 2.3, LDH 352, WBC 4.9. KUB did not show significant abnormalities. CT angio C/A/P was canceled due to worsening kidney function. In the ED patient received 4L normal saline IVF bolus, azithromycin and ceftriaxone IV x 1, on admission started with vancomycin, Zosyn and fidaxomicin. Patient passed swallow screen, started on full liquid diet by surgery. NG tube discontinued. Giardia, ova and parasites, H. pylori, norovirus negative. Stool calprotectin 1989. Patient transition to oral diet, tolerating well. TPN discontinued. Patient had increased leukocytosis to 22.3 confirmed by repeat CBC. Afebrile, does not complain of increased abdominal pain. LO drain output slightly increased from previous, serosanguineous drainage mostly serous. CT chest abdomen pelvis with contrast showed a subphrenic abscess and a pelvic abscess. Abscess culture growing Pseudomonas sensitive to Zosyn. PIV placed with US, central line D/C'd. -Peptic ulcer bland diet, will advance as tolerated, pend surgery recommendations. Patient is passing small amount of stool and passing gas as well -Repeating CT abdomen pelvis with contrast showed Left subphrenic abscess has decreased in size approximately 50% -IV acetaminophen 1000mg q6hr -Oxycodone 10 mg every 4 hours as needed for pain -GI Dr. Palacios consulted, Appreciate recommendations. -Infectious disease Dr. Forte, Appreciate recommendations. -general surgery following. -IV Zosyn, changed to Cipro 40 mg IV every 12 hours until 12/12 to complete antibiotic course for abdominal abscess -Discontinued vancomycin, 12/06 -Monitor drain outputs #Pseudomonas PNA, treatment completed Sputum Gram stain positive for psudomonas on 11/26. Pt not experiencing fever, chest pain, SOB. WBC uptrending, afebrile. Patient was transition to p.o. antibiotics Flagyl and Cipro on 11/30, transitioned back following day due to increased leukocytosis. -zosyn 4.5 g every 8 hours for 7 days 11/26?12/03 #Anxiety Patient noted feeling anxious, had mild tachycardia, sinus. Resolved with propranolol. -Propranolol 10 mg 3 times daily #Hx of hypertension. Home medication lisinopril 20 Mg p.o. daily. -Home medication resumed #Hx of rheumatoid arthritis. Patient has long history of rheumatoid arthritis, underwent multiple treatments with methotrexate and other DMARDs, currently on prednisone 10 mg and monoclonal antibody upadacitinib for prolonged time. Plan: -upadacitinib on hold. -Prednisone 5 mg p.o. daily #Normocytic anemia. Hemoglobin noted to drop to 8.2 from 10.8, likely related from surgical procedure on 11/23. No signs of active bleeding noted on 11/24. -Monitor with daily CBC. -Transfuse pRBC for hemoglobin < 7.0. #Hx of hypothyroidism. Unknown etiology, . Patient's home medication levothyroxine 125 mcg p.o. daily. Patient's last dose increase was 2 months ago Plan: -Resumed home levothyroxine FEN: Peptic ulcer plan diet DVT prophylaxis: Heparin GI prophylaxis: IV pantoprazole 40mg BID. Lines: Peripheral IV, wound VAC, LO drain, abscess drain CODE STATUS: Full code. Patient was seen and discussed with attending physician, Dr. Archana Nichols MD, PGY 2 Attending Provider Attestation/Addendum I have examined the patient, reviewed labs and imaging findings, discussed the case with the resident(s), and reviewed entered orders. I agree with the plan of care as outlined in this note, with these additional summaries/recommendations: Patient seen at bedside. No acute overnight events. Repeat CT abdomen/pelvis today showed left subphrenic abscess has decreased in size approximately 50%. Continue drain and ciprofloxacin. General surgery following. Physical therapy consultation. Continue Ambien for sleep aid. Continue low-dose prednisone for history of RA. Repeat hematology and chemistry panel in AM. Dr. Magaña
[2024-12-09] MEDS: Magnesium Sulfate 4 GM Ivpb 4 GM/50 ML BAG IV (13:54)
--- NOTE | 2024-12-09 17:12 | PC.SS ---
SS follow up: faxed updated clinicals to [phone] for review as patient is pending authorization for SNF
[2024-12-09] MEDS: AMBIEN 12.5 MG PO (20:00)
[2024-12-09] MEDS: SPIRONOLACTONE 25 MG TABLET PO (20:03)
--- NOTE | 2024-12-09 21:04 | PD.IMPROG ---
Documentation for date of: 12/09/24 Subjective Subjective Interval history: Status post abdominal fluid collection with IR drainage catheter Positive bowel sounds Tolerating p.o. diet Exam Vital Signs Temp Pulse Resp BP Pulse Ox O2 Del Method O2 Flow Rate 97.8 F 90 17 110/71 93 L Room Air 3 12/09/24 16:00 12/09/24 20:03 12/09/24 16:00 12/09/24 20:03 12/09/24 16:00 12/09/24 16:00 12/08/24 11:36 FiO2 21 12/08/24 11:36 Objective Labs 12/09/24 04:30 12/09/24 04:30 Labs: Laboratory Results - last 24 hr 12/09/24 04:30 WBC 7.8 RBC 2.60 L Hgb 8.0 L Hct 26.5 L MCV 102 H MCH 30.8 MCHC 30.2 L RDW Std Deviation 55.4 H Plt Count 301 D Neut % (Auto) 66 Lymph % (Auto) 19 [place] % (Auto) 11 Eos % (Auto) 3 Baso % (Auto) 0 Neut # (Auto) 5.2 Lymph # (Auto) 1.5 [place] # (Auto) 0.9 H Eos # (Auto) 0.2 Baso # (Auto) 0.0 Immature Gran # (Auto) 0.07 H Absolute Nucleated RBC 0.10 H Immature Gran % 1 H Nucleated RBC % 1 H Sodium 139 Potassium 3.7 D Chloride 104 Carbon Dioxide 24.7 Anion Gap 10 BUN 7 L Creatinine 0.9 Estim Creat Clear Calc 85.1 eGFR > 60 BUN/Creatinine Ratio 8 L Glucose 92 Calculated Osmolality 275 Calcium 8.5 Corrected Calcium 9.2 Phosphorus 2.4 Magnesium 1.7 Total Bilirubin 0.4 AST 28 ALT 20 Alkaline Phosphatase 47 Total Protein 5.7 Albumin 3.1 L Globulin 2.6 Albumin/Globulin Ratio 1.2 Impressions Impression: # Intra-abdominal fluid collection requiring IR drainage # Status post 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 TCH Continue current management ABG Interpretation ABG results: 11/22/24 11/23/24 11/23/24 17:58 02:09 04:07 ABG pH 7.25 L 7.22 L 7.26 L ABG pCO2 22 L 28 L 24 L ABG pO2 102 69 L D 94 D ABG HCO3 9 L* 12 L 11 L ABG O2 Saturation 97 89 L 95 ABG Base Excess -16 L -15 L -15 L 11/23/24 11/24/24 11/25/24 06:27 05:01 04:01 ABG pH 7.15 L* D 7.42 D 7.40 ABG pCO2 35 D 33 36 ABG pO2 355 H D 124 H D 92 D ABG HCO3 12 L 21 22 ABG O2 Saturation 100 H 99 H 97 ABG Base Excess -16 L -3 -2 Assessment & Plan A&P Narrative abx appear to target a late resp cx, cxr noted so rx is for apparent pneumonia as a complication of surgery presumptive peritonitis targeting of rare pseudomonas in resp cx up to you. max duration of abx for resp infection is 7d. and organism is s. to quinolones that are the same iv and po. will will again prn Time Spent With Patient Time: Total time spent is greater than 50% in coordination of care (as documented) at patient's floor/unit and/or counseling patient: Procedures Arterial Line Size (Gauge): 20
[2024-12-10] VITALS (13 sets, daily range): BP systolic 97–111; BP diastolic 60–89; PULSE 61–114; RESP 17–20; TEMP 36.1–36.8; O2SAT 93–98; BMI 39.2
[2024-12-10] MEDS: oxyCODONE HCL 5 MG IR TAB 10 MG PO ×3 (01:41→16:11)
[2024-12-10] MEDS: LEVOTHYROXINE SODIUM 125 MCG TABLET PO (05:27)
[2024-12-10 06:16] LABS: Basophils # (Auto) 0.1 Thou/mm3 (0.0-0.2); Basophils % (Auto) 1 % (0-2.5); Eosinophils # (Auto) 0.3 Thou/mm3 (0.0-0.5); Eosinophils % (Auto) 4 % (0-10); Hematocrit 25.3 % (36.0-46.0); Immature Granulocytes % (Auto) 1 % (0-0); Immature Granulocytes Auto 0.08 Thou/mm3 (0.00-0.00); Lymphocytes # (Auto) 1.4 Thou/mm3 (1.0-4.8); Lymphocytes % (Auto) 21 % (10-50); Mean Corpuscular HGB Conc 30.8 g/dl (31.0-37.0); Mean Corpuscular Hemoglobin 31.2 pg (25.0-35.0); Mean Corpuscular Volume 101 fL (80-100); Monocytes # (Auto) 0.9 Thou/mm3 (0.0-0.8); Monocytes % (Auto) 13 % (0-12); Neutrophils % (Auto) 60 % (37-80); Nucleated Red Blood Cell # 0.07 Thou/mm3 (0.00-0.00); Nucleated Red Blood Cell % 1 /100 WBC (0); Platelet Count 330 Thou/mm3 (140-440); RDW Standard Deviation 54.4 fL (36.4-46.3); White Blood Count 6.7 Thou/mm3 (3.6-11.0)
[2024-12-10 06:17] LABS: Hemoglobin 7.8 g/dL (12.0-16.0)
[2024-12-10 06:44] LABS: Alanine Aminotransferase 22 U/L (10-49); Albumin, Serum 3.2 gm/dL (3.5-5.0); Albumin/Globulin Ratio 1.3 (1.2-2.2); Alkaline Phosphatase 46 U/L (46-116); Anion Gap 11 (7-16); Aspartate Amino Transferase 37 U/L (0-34); BUN/Creatinine Ratio 8 Ratio (12-20); Bilirubin,Total 0.3 mg/dL (0.3-1.2); Blood Urea Nitrogen 7 mg/dL (9-23); Calcium 8.5 mg/dL (8.3-10.6); Calcium (Corrected) 9.1 mg/dL (8.5-10.1); Carbon Dioxide 24.3 mMol/L (20.0-31.0); Chloride 103 mMol/L (98-107); Creatinine (Component) 0.9 mg/dL (0.6-1.3); Estimated Creatinine Clearance 85.1 mL/min (>60); Globulin 2.5 gm/dL (2.3-3.5); Glucose 95 mg/dL (74-106); Magnesium 2.1 mg/dL (1.6-2.6); Osmolality,Calculated 273 (275-295); Phosphorous 2.9 mg/dL (2.4-5.1); Potassium 3.5 mMol/L (3.4-5.1); Sodium 138 mMol/L (136-145); Total Protein 5.7 gm/dL (5.7-8.2); eGFR > 60 See Note
[2024-12-10] MEDS: POTASSIUM CHLORIDE 20 mEq TABCR 40 MEQ PO (09:00)
[2024-12-10] MEDS: NAPH,KPH MBDB 1 PACKET (1.5 GM) PO ×2 (09:50→20:12)
[2024-12-10] MEDS: Lisinopril 20 MG TABLET PO (09:50)
[2024-12-10] MEDS: HEPARIN SOD INJ 5000 UNIT/ML VIAL SC ×2 (09:50→20:12)
[2024-12-10] MEDS: SPIRONOLACTONE 25 MG TABLET PO (09:50)
[2024-12-10] MEDS: predniSONE 5 MG TABLET PO (09:50)
[2024-12-10] MEDS: CIPROFLOXACIN/D5w 400 MG IVPB 400 MG/200 ML BAG 200 MG IV ×2 (09:50→20:10)
[2024-12-10] MEDS: PANTOPRAZOLE 40 MG TABLET PO ×2 (09:50→20:11)
--- NOTE | 2024-12-10 10:18 | PC.SS ---
SS received a denice from Melisa from [facility] and she informed SS that auth had been obtained. SS informed her that patient would discharge in 1-2 days.
--- NOTE | 2024-12-10 10:44 | ESPR_ITS ---
Documentation for date of: 12/10/24 Subjective Subjective Interval history: Patient was seen and examined at the bedside this morning. Patient reported to pass formed stool without blood. Patient's mother was present at the bedside and reported that patient's TSH was elevated and her concerns were addressed regarding levothyroxine that we will continue with that and follow-up on TSH and T4 in the next 6 to 8 weeks. Patient's wound VAC was adjusted as it was not functioning and chest tube drain output more than 200 cc. Vitals were stable this morning. Hemoglobin around 7.8 and white count unremarkable. Potassium was borderline low therefore KCl was repleted. Kidney function remained stable. Currently waiting on authorization for SNF as well. Surgery recommended to continue with drain for 2 more days as she is still putting out and await improvement. All labs and orders were reviewed. Exam Vital Signs Temp Pulse Resp BP Pulse Ox O2 Del Method O2 Flow Rate 97.1 F 92 18 111/89 H 96 Room Air 3 12/10/24 08:00 12/10/24 10:39 12/10/24 10:39 12/10/24 09:50 12/10/24 10:39 12/10/24 08:00 12/08/24 11:36 FiO2 21 12/08/24 11:36 Narrative Exam Gen: Well-developed and well-nourished obese female. Soft, scratchy voice. HEENT: NCAT, PERRLA, EOMI, MMM, anicteric conjunctivae. CVS: normal S1 and S2. Sinus tachycardia. No M/R/G. Resp: Decreased breath sounds B/L due to body habitus. No rhonchi, rales, crackles or wheezing. Abd: soft, mildly distended, s/p laparoscopy with midline abdominal scar, appears clean, wound VAC, subphrenic abscess drain, and LO drain in place. BS+ in all 4 quadrants. Diffuse mild tenderness, most significant in LUQ. MSK: Edema BLE. Multiple ecchymosis dorsal surface BUE. Neuro: grossly intact Objective Labs 12/11/24 04:19 12/10/24 04:38 Labs: Laboratory Results - last 24 hr 12/10/24 04:38 WBC 6.7 RBC 2.50 L Hgb 7.8 L Hct 25.3 L MCV 101 H MCH 31.2 MCHC 30.8 L RDW Std Deviation 54.4 H Plt Count 330 Neut % (Auto) 60 Lymph % (Auto) 21 [place] % (Auto) 13 H Eos % (Auto) 4 Baso % (Auto) 1 Neut # (Auto) 4.0 Lymph # (Auto) 1.4 [place] # (Auto) 0.9 H Eos # (Auto) 0.3 Baso # (Auto) 0.1 Immature Gran # (Auto) 0.08 H Absolute Nucleated RBC 0.07 H Immature Gran % 1 H Nucleated RBC % 1 H Sodium 138 Potassium 3.5 Chloride 103 Carbon Dioxide 24.3 Anion Gap 11 BUN 7 L Creatinine 0.9 Estim Creat Clear Calc 85.1 eGFR > 60 BUN/Creatinine Ratio 8 L Glucose 95 Calculated Osmolality 273 L Calcium 8.5 Corrected Calcium 9.1 Phosphorus 2.9 Magnesium 2.1 Total Bilirubin 0.3 AST 37 H ALT 22 Alkaline Phosphatase 46 Total Protein 5.7 Albumin 3.2 L Globulin 2.5 Albumin/Globulin Ratio 1.3 ABG Interpretation ABG results: 11/22/24 11/23/24 11/23/24 17:58 02:09 04:07 ABG pH 7.25 L 7.22 L 7.26 L ABG pCO2 22 L 28 L 24 L ABG pO2 102 69 L D 94 D ABG HCO3 9 L* 12 L 11 L ABG O2 Saturation 97 89 L 95 ABG Base Excess -16 L -15 L -15 L 11/23/24 11/24/24 11/25/24 06:27 05:01 04:01 ABG pH 7.15 L* D 7.42 D 7.40 ABG pCO2 35 D 33 36 ABG pO2 355 H D 124 H D 92 D ABG HCO3 12 L 21 22 ABG O2 Saturation 100 H 99 H 97 ABG Base Excess -16 L -3 -2 Quality Measures Quality Measures VTE prophylaxis Assessment & Plan Assessment Current Active Medications: Generic Name Dose Route Start Last Admin Trade Name Freq PRN Reason Stop Dose Admin Acetaminophen 650 mg 11/30/24 11:31 Acetaminophen 325 Mg Tablet PO 12/30/24 11:30 Q6H PRN PAIN SCALE 1-3 (mild Al Hydrox/Mg Hydrox/Simethicone 30 ml 11/22/24 00:53 Mg Hyd/Al Hyd/Sandie (Maalox Reg) Susp 30 Ml Udc PO 12/22/24 00:52 Q4HR PRN UPSET STOMACH/INDIGESTION Albuterol/Ipratropium 3 ml 11/22/24 00:45 11/23/24 02:09 Albuterol/Ipratropium (Duoneb) Rt [place] 3 Ml Nebu INH 12/22/24 00:44 3 ml Q2HR PRN Administration SHORTNESS OF BREATH OR WHEEZE Benzocaine 0 dose 11/27/24 11:37 Benzocaine 20% (Hurricaine) [place] 1 Dose TOP 12/27/24 11:36 PRN PRN SORE THROAT Ambien Cr 12.5 Mg 0 ea 11/30/24 21:00 12/09/24 20:00 Tablet PO 12/30/24 20:59 1 tablet HS ZAK Administration Guaifenesin/Dextromethorphan 1 each 12/04/24 02:07 12/04/24 05:11 Guaifenesin/Dm Tablet PO 01/03/25 02:06 1 each BID PRN Administration COUGH Heparin Sodium (Porcine) 5,000 unit 11/28/24 21:00 12/10/24 09:50 Heparin Sod Inj 5000 Unit/Ml Vial SC 12/12/24 20:59 5,000 unit BID ZAK Administration Ciprofloxacin/Dextrose 400 mg in 200 mls @ 200 mls/hr 12/07/24 09:00 12/10/24 09:50 Cipro Ivpb IV 12/12/24 08:59 200 mls/hr Q12HR ZAK Administration Levothyroxine Sodium 125 mcg 11/22/24 06:00 12/10/24 05:27 Levothyroxine Sodium 125 Mcg Tablet PO 12/22/24 05:59 125 mcg ACBR ZAK Administration Lidocaine 1 patch 11/26/24 13:00 12/09/24 06:37 Lidocaine 5% 1 Patch TOP 12/26/24 12:59 1 patch UD PRN Administration PAIN Protocol Lisinopril 20 mg 11/27/24 16:45 12/10/24 09:50 Lisinopril 20 Mg Tablet PO 12/27/24 16:44 20 mg QDAY ZAK Administration Ondansetron HCl 4 mg 11/22/24 00:51 11/27/24 04:13 Ondansetron Inj 2 Mg/Ml Inj 2 Ml IV 12/22/24 00:50 4 mg Q6H PRN Administration NAUSEA OR VOMITING Protocol Oxycodone HCl 10 mg 12/07/24 11:34 12/10/24 10:12 Oxycodone Hcl 5 Mg Ir Tab PO 12/12/24 11:33 10 mg Q4H PRN Administration Breakthrough Pain Protocol Pantoprazole Sodium 40 mg 11/30/24 21:00 12/10/24 09:50 Pantoprazole 40 Mg Tablet PO 12/30/24 20:59 40 mg BID ZAK Administration Potassium Phos/Sodium Phos 1 packet 11/29/24 09:15 12/10/24 09:50 [place],[facility] 1 Packet (1.5 Gm) PO 12/29/24 09:14 1 packet BID ZAK Administration Prednisone 5 mg 12/01/24 09:00 12/10/24 09:50 Prednisone 5 Mg Tablet PO 12/31/24 08:59 5 mg QAM ZAK Administration Propranolol HCl 10 mg 12/05/24 08:15 12/10/24 05:27 Propranolol 10 Mg Tablet PO 01/04/25 08:14 Not Given TID ZAK Sodium Chloride 0 ml 12/09/24 12:15 12/09/24 11:45 Sodium Cl Irrig Soln 1,000 Ml Bag IRRIG 01/08/25 12:14 1,000 ml QDAY ZAK Administration Spironolactone 25 mg 11/26/24 14:30 12/10/24 09:50 Spironolactone 25 Mg Tablet PO 12/26/24 14:29 25 mg BID ZAK Administration Plan Ms. 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 #Perforated gastrojejunostomy s/p repair, Gerson patch, washout, drain placement #Post subphrenic and pelvic abscess drain Patient presented with intractable watery diarrhea for the past week. No blood no mucus. Recent antibiotic use and also recent travel to [place] where she was eating local food. Patient chronically on prednisone and monoclonal antibody upadacitinib for RA. History of Lynn-en-Y gastric bypass 20 years ago. CTAP showed pneumoperitoneum, air droplets in the wall of the colon, suspicious for ischemic bowel. General surgeon Dr. Thao was consulted, on 11/23/24 patient underwent repair of perforated gastrojejunostomy, Gerson patch, washout, drain placement without complications. On admission labs showed lactic acid 2.3, LDH 352, WBC 4.9. KUB did not show significant abnormalities. CT angio C/A/P was canceled due to worsening kidney function. In the ED patient received 4L normal saline IVF bolus, azithromycin and ceftriaxone IV x 1, on admission started with vancomycin, Zosyn and fidaxomicin. Patient passed swallow screen, started on full liquid diet by surgery. NG tube discontinued. Giardia, ova and parasites, H. pylori, norovirus negative. Stool calprotectin 1989. Patient transition to oral diet, tolerating well. TPN discontinued. Patient had increased leukocytosis to 22.3 confirmed by repeat CBC. Afebrile, does not complain of increased abdominal pain. LO drain output slightly increased from previous, serosanguineous drainage mostly serous. CT chest abdomen pelvis with contrast showed a subphrenic abscess and a pelvic abscess. Abscess culture growing Pseudomonas sensitive to Zosyn. PIV placed with US, central line D/C'd. -Continuing evaluating abscess drain output for 2 more days per surgery recommendations and continue current management -Peptic ulcer bland diet, will advance as tolerated, pend surgery recommendations. Patient is passing small amount of stool and passing gas as well -Repeating CT abdomen pelvis with contrast showed Left subphrenic abscess has decreased in size approximately 50% -IV acetaminophen 1000mg q6hr -Oxycodone 10 mg every 4 hours as needed for pain -GI Dr. Palacios consulted, Appreciate recommendations. -Infectious disease Dr. Forte, Appreciate recommendations. -general surgery following. -IV Zosyn, changed to Cipro 40 mg IV every 12 hours until 12/12 to complete antibiotic course for abdominal abscess -Discontinued vancomycin, 12/06 -Monitor drain outputs #Pseudomonas PNA, treatment completed Sputum Gram stain positive for psudomonas on 11/26. Pt not experiencing fever, chest pain, SOB. WBC uptrending, afebrile. Patient was transition to p.o. antibiotics Flagyl and Cipro on 11/30, transitioned back following day due to increased leukocytosis. -zosyn 4.5 g every 8 hours for 7 days 11/26?12/03 #Anxiety Patient noted feeling anxious, had mild tachycardia, sinus. Resolved with propranolol. -Propranolol 10 mg 3 times daily #Hx of hypertension. Home medication lisinopril 20 Mg p.o. daily. -Home medication resumed #Hx of rheumatoid arthritis. Patient has long history of rheumatoid arthritis, underwent multiple treatments with methotrexate and other DMARDs, currently on prednisone 10 mg and monoclonal antibody upadacitinib for prolonged time. Plan: -upadacitinib on hold. -Prednisone 5 mg p.o. daily #Normocytic anemia. Hemoglobin noted to drop to 8.2 from 10.8, likely related from surgical procedure on 11/23. No signs of active bleeding noted on 11/24. -Monitor with daily CBC. -Transfuse pRBC for hemoglobin < 7.0. #Hx of hypothyroidism. Unknown etiology, . Patient's home medication levothyroxine 125 mcg p.o. daily. Patient's last dose increase was 2 months ago Plan: -Resumed home levothyroxine -Follow-up on thyroid functions in next 6 to 8 weeks FEN: Peptic ulcer plan diet DVT prophylaxis: Heparin GI prophylaxis: IV pantoprazole 40mg BID. Lines: Peripheral IV, wound VAC, LO drain, abscess drain CODE STATUS: Full code. Patient was seen and discussed with attending physician, Dr. Archana Nichols MD, PGY 2 Attending Provider Attestation/Addendum I have examined the patient, reviewed labs and imaging findings, discussed the case with the resident(s), and reviewed entered orders. I agree with the plan of care as outlined in this note, with these additional summaries/recommendations: Patient seen at bedside. No acute overnight events. Patient has no new symptoms to report today. Repeat CT abdomen/pelvis today showed left subphrenic abscess has decreased in size approximately 50%. Continue drain and ciprofloxacin. General surgery following. Physical therapy consultation. Continue Ambien for sleep aid. Continue low-dose prednisone for history of RA. Repeat hematology and chemistry panel in AM. Dr. Magaña
[2024-12-10] MEDS: PROPRANOLOL 10 MG TABLET PO (14:40)
[2024-12-10] MEDS: AMBIEN 12.5 MG PO (20:13)
--- NOTE | 2024-12-10 20:48 | PD.IMPROG ---
Documentation for date of: 12/10/24 Subjective Subjective Interval history: Patient evaluated hemoglobin hematocrit 7.8 and 25.3 Exam Vital Signs Temp Pulse Resp BP Pulse Ox O2 Del Method O2 Flow Rate 97.0 F 105 H 17 101/60 97 Room Air 3 12/10/24 16:00 12/10/24 20:12 12/10/24 16:00 12/10/24 20:12 12/10/24 16:00 12/10/24 16:00 12/08/24 11:36 FiO2 21 12/08/24 11:36 Constitutional Comments: Alert oriented Routine Respiratory Exam Comments: Normal to auscultation Routine Abdominal Exam Comments: Soft nontender Objective Labs 12/10/24 04:38 12/10/24 04:38 Labs: Laboratory Results - last 24 hr 12/10/24 04:38 WBC 6.7 RBC 2.50 L Hgb 7.8 L Hct 25.3 L MCV 101 H MCH 31.2 MCHC 30.8 L RDW Std Deviation 54.4 H Plt Count 330 Neut % (Auto) 60 Lymph % (Auto) 21 [place] % (Auto) 13 H Eos % (Auto) 4 Baso % (Auto) 1 Neut # (Auto) 4.0 Lymph # (Auto) 1.4 [place] # (Auto) 0.9 H Eos # (Auto) 0.3 Baso # (Auto) 0.1 Immature Gran # (Auto) 0.08 H Absolute Nucleated RBC 0.07 H Immature Gran % 1 H Nucleated RBC % 1 H Sodium 138 Potassium 3.5 Chloride 103 Carbon Dioxide 24.3 Anion Gap 11 BUN 7 L Creatinine 0.9 Estim Creat Clear Calc 85.1 eGFR > 60 BUN/Creatinine Ratio 8 L Glucose 95 Calculated Osmolality 273 L Calcium 8.5 Corrected Calcium 9.1 Phosphorus 2.9 Magnesium 2.1 Total Bilirubin 0.3 AST 37 H ALT 22 Alkaline Phosphatase 46 Total Protein 5.7 Albumin 3.2 L Globulin 2.5 Albumin/Globulin Ratio 1.3 Impressions Impression: # Intra-abdominal fluid collection requiring drainage by IR # drop in hemoglobin hematocrit continue to monitor CBC continue current management # ABG Interpretation ABG results: 11/22/24 11/23/24 11/23/24 17:58 02:09 04:07 ABG pH 7.25 L 7.22 L 7.26 L ABG pCO2 22 L 28 L 24 L ABG pO2 102 69 L D 94 D ABG HCO3 9 L* 12 L 11 L ABG O2 Saturation 97 89 L 95 ABG Base Excess -16 L -15 L -15 L 11/23/24 11/24/24 11/25/24 06:27 05:01 04:01 ABG pH 7.15 L* D 7.42 D 7.40 ABG pCO2 35 D 33 36 ABG pO2 355 H D 124 H D 92 D ABG HCO3 12 L 21 22 ABG O2 Saturation 100 H 99 H 97 ABG Base Excess -16 L -3 -2 Assessment & Plan A&P Narrative abx appear to target a late resp cx, cxr noted so rx is for apparent pneumonia as a complication of surgery presumptive peritonitis targeting of rare pseudomonas in resp cx up to you. max duration of abx for resp infection is 7d. and organism is s. to quinolones that are the same iv and po. will will again prn Time Spent With Patient Time: Total time spent is greater than 50% in coordination of care (as documented) at patient's floor/unit and/or counseling patient: Procedures Arterial Line Size (Gauge): 20
[2024-12-11] VITALS (13 sets, daily range): BP systolic 92–111; BP diastolic 58–72; PULSE 68–106; RESP 16–19; TEMP 36.3–36.9; O2SAT 95–98; BMI 39.2; BMI 11.0; BMI 38.3
[2024-12-11] MEDS: oxyCODONE HCL 5 MG IR TAB 10 MG PO ×3 (02:39→15:17)
[2024-12-11] MEDS: LEVOTHYROXINE SODIUM 125 MCG TABLET PO (05:19)
[2024-12-11 06:07] LABS: Basophils % (Auto) 1 % (0-2.5); Eosinophils # (Auto) 0.2 Thou/mm3 (0.0-0.5); Eosinophils % (Auto) 4 % (0-10); Hematocrit 25.6 % (36.0-46.0); Immature Granulocytes % (Auto) 2 % (0-0); Immature Granulocytes Auto 0.08 Thou/mm3 (0.00-0.00); Lymphocytes # (Auto) 1.3 Thou/mm3 (1.0-4.8); Lymphocytes % (Auto) 23 % (10-50); Mean Corpuscular HGB Conc 30.5 g/dl (31.0-37.0); Mean Corpuscular Hemoglobin 31.1 pg (25.0-35.0); Mean Corpuscular Volume 102 fL (80-100); Monocytes # (Auto) 0.8 Thou/mm3 (0.0-0.8); Monocytes % (Auto) 14 % (0-12); Neutrophils # (Auto) 3.1 Thou/mm3 (1.8-7.7); Neutrophils % (Auto) 57 % (37-80); Nucleated Red Blood Cell # 0.07 Thou/mm3 (0.00-0.00); Nucleated Red Blood Cell % 1 /100 WBC (0); Platelet Count 331 Thou/mm3 (140-440); RDW Standard Deviation 55.7 fL (36.4-46.3); Red Blood Count 2.51 Miln/mm3 (4.00-5.20); White Blood Count 5.5 Thou/mm3 (3.6-11.0)
[2024-12-11 06:20] LABS: Hemoglobin 7.8 g/dL (12.0-16.0)
[2024-12-11 08:41] LABS: Alanine Aminotransferase 23 U/L (10-49); Albumin, Serum 3.1 gm/dL (3.5-5.0); Albumin/Globulin Ratio 1.2 (1.2-2.2); Alkaline Phosphatase 50 U/L (46-116); Anion Gap 10 (7-16); Aspartate Amino Transferase 35 U/L (0-34); BUN/Creatinine Ratio 7 Ratio (12-20); Bilirubin,Total 0.3 mg/dL (0.3-1.2); Blood Urea Nitrogen 6 mg/dL (9-23); Calcium 8.4 mg/dL (8.3-10.6); Calcium (Corrected) 9.1 mg/dL (8.5-10.1); Chloride 104 mMol/L (98-107); Creatinine (Component) 0.9 mg/dL (0.6-1.3); Estimated Creatinine Clearance 85.1 mL/min (>60); Globulin 2.6 gm/dL (2.3-3.5); Glucose 92 mg/dL (74-106); Magnesium 1.6 mg/dL (1.6-2.6); Osmolality,Calculated 277 (275-295); Potassium 3.7 mMol/L (3.4-5.1); Sodium 140 mMol/L (136-145); Total Protein 5.7 gm/dL (5.7-8.2); eGFR > 60 See Note
--- NOTE | 2024-12-11 09:24 | ESPR_ITS ---
Documentation for date of: 12/11/24 Subjective Subjective Interval history: Patient was seen and examined at the bedside this morning. Patient reported that she slept well overnight. No acute overnight events were reported. She did not had any abdominal discomfort, chest pain, shortness of breath or cough. Patient's abscess drain output was 8 cc and LO drain was 10 cc. Wound VAC still showing output more than 100 cc. Surgeon recommended that if her abscess drain and LO drain remains low we will repeat CT abdomen pelvis with contrast tomorrow morning to reassess and anticipate discharge afterwards with the wound VAC possible. Vitals were stable this morning with mild sinus tachycardia. Labs showed hemoglobin stable at 7.8. Chemistry panel was unremarkable. Kidney functions remained stable. All labs and orders were reviewed. Exam Vital Signs Temp Pulse Resp BP Pulse Ox O2 Del Method O2 Flow Rate 97.5 F 106 H 17 107/69 98 Room Air 3 12/11/24 08:00 12/11/24 08:00 12/11/24 08:00 12/11/24 08:00 12/11/24 08:00 12/11/24 08:00 12/08/24 11:36 FiO2 21 12/08/24 11:36 Narrative Exam Gen: Well-developed and well-nourished obese female. Soft, scratchy voice. HEENT: NCAT, PERRLA, EOMI, MMM, anicteric conjunctivae. CVS: normal S1 and S2. Sinus tachycardia. No M/R/G. Resp: Decreased breath sounds B/L due to body habitus. No rhonchi, rales, crackles or wheezing. Abd: soft, mildly distended, s/p laparoscopy with midline abdominal scar, appears clean, wound VAC, subphrenic abscess drain, and LO drain in place. BS+ in all 4 quadrants. Diffuse mild tenderness, most significant in LUQ. MSK: Edema BLE. Multiple ecchymosis dorsal surface BUE. Neuro: grossly intact Objective Labs 12/12/24 04:37 12/12/24 04:37 Labs: Laboratory Results - last 24 hr 12/11/24 12/11/24 04:19 07:30 WBC 5.5 RBC 2.51 L Hgb 7.8 L Hct 25.6 L MCV 102 H MCH 31.1 MCHC 30.5 L RDW Std Deviation 55.7 H Plt Count 331 Neut % (Auto) 57 Lymph % (Auto) 23 [place] % (Auto) 14 H Eos % (Auto) 4 Baso % (Auto) 1 Neut # (Auto) 3.1 Lymph # (Auto) 1.3 [place] # (Auto) 0.8 Eos # (Auto) 0.2 Baso # (Auto) 0.0 Immature Gran # (Auto) 0.08 H Absolute Nucleated RBC 0.07 H Immature Gran % 2 H Nucleated RBC % 1 H Sodium 140 Potassium 3.7 Chloride 104 Carbon Dioxide 26.0 Anion Gap 10 BUN 6 L Creatinine 0.9 Estim Creat Clear Calc 85.1 eGFR > 60 BUN/Creatinine Ratio 7 L Glucose 92 Calculated Osmolality 277 Calcium 8.4 Corrected Calcium 9.1 Phosphorus 3.0 Magnesium 1.6 Total Bilirubin 0.3 AST 35 H ALT 23 Alkaline Phosphatase 50 Total Protein 5.7 Albumin 3.1 L Globulin 2.6 Albumin/Globulin Ratio 1.2 ABG Interpretation ABG results: 11/22/24 11/23/24 11/23/24 17:58 02:09 04:07 ABG pH 7.25 L 7.22 L 7.26 L ABG pCO2 22 L 28 L 24 L ABG pO2 102 69 L D 94 D ABG HCO3 9 L* 12 L 11 L ABG O2 Saturation 97 89 L 95 ABG Base Excess -16 L -15 L -15 L 11/23/24 11/24/24 11/25/24 06:27 05:01 04:01 ABG pH 7.15 L* D 7.42 D 7.40 ABG pCO2 35 D 33 36 ABG pO2 355 H D 124 H D 92 D ABG HCO3 12 L 21 22 ABG O2 Saturation 100 H 99 H 97 ABG Base Excess -16 L -3 -2 Quality Measures Quality Measures VTE prophylaxis Assessment & Plan Assessment Current Active Medications: Generic Name Dose Route Start Last Admin Trade Name Freq PRN Reason Stop Dose Admin Acetaminophen 650 mg 11/30/24 11:31 Acetaminophen 325 Mg Tablet PO 12/30/24 11:30 Q6H PRN PAIN SCALE 1-3 (mild Al Hydrox/Mg Hydrox/Simethicone 30 ml 11/22/24 00:53 Mg Hyd/Al Hyd/Sandie (Maalox Reg) Susp 30 Ml Udc PO 12/22/24 00:52 Q4HR PRN UPSET STOMACH/INDIGESTION Albuterol/Ipratropium 3 ml 11/22/24 00:45 11/23/24 02:09 Albuterol/Ipratropium (Duoneb) Rt Mar[place] 3 Ml Nebu INH 12/22/24 00:44 3 ml Q2HR PRN Administration SHORTNESS OF BREATH OR WHEEZE Benzocaine 0 dose 11/27/24 11:37 Benzocaine 20% (Hurricaine) [place] 1 Dose TOP 12/27/24 11:36 PRN PRN SORE THROAT Ambien Cr 12.5 Mg 0 ea 11/30/24 21:00 12/10/24 20:13 Tablet PO 12/30/24 20:59 1 tablet HS ZAK Administration Guaifenesin/Dextromethorphan 1 each 12/04/24 02:07 12/04/24 05:11 Guaifenesin/Dm Tablet PO 01/03/25 02:06 1 each BID PRN Administration COUGH Heparin Sodium (Porcine) 5,000 unit 11/28/24 21:00 12/10/24 20:12 Heparin Sod Inj 5000 Unit/Ml Vial SC 12/12/24 20:59 5,000 unit BID ZAK Administration Ciprofloxacin/Dextrose 400 mg in 200 mls @ 200 mls/hr 12/07/24 09:00 12/10/24 20:10 Cipro Ivpb IV 12/12/24 08:59 200 mls/hr Q12HR ZAK Administration Levothyroxine Sodium 125 mcg 11/22/24 06:00 12/11/24 05:19 Levothyroxine Sodium 125 Mcg Tablet PO 12/22/24 05:59 125 mcg ACBR ZAK Administration Lidocaine 1 patch 11/26/24 13:00 12/09/24 06:37 Lidocaine 5% 1 Patch TOP 12/26/24 12:59 1 patch UD PRN Administration PAIN Protocol Lisinopril 20 mg 11/27/24 16:45 12/10/24 09:50 Lisinopril 20 Mg Tablet PO 12/27/24 16:44 20 mg QDAY ZAK Administration Ondansetron HCl 4 mg 11/22/24 00:51 11/27/24 04:13 Ondansetron Inj 2 Mg/Ml Inj 2 Ml IV 12/22/24 00:50 4 mg Q6H PRN Administration NAUSEA OR VOMITING Protocol Oxycodone HCl 10 mg 12/07/24 11:34 12/11/24 02:39 Oxycodone Hcl 5 Mg Ir Tab PO 12/12/24 11:33 10 mg Q4H PRN Administration Breakthrough Pain Protocol Pantoprazole Sodium 40 mg 11/30/24 21:00 12/10/24 20:11 Pantoprazole 40 Mg Tablet PO 12/30/24 20:59 40 mg BID ZAK Administration Potassium Phos/Sodium Phos 1 packet 11/29/24 09:15 12/10/24 20:12 [facility] 1 Packet (1.5 Gm) PO 12/29/24 09:14 1 packet BID ZAK Administration Prednisone 5 mg 12/01/24 09:00 12/10/24 09:50 Prednisone 5 Mg Tablet PO 12/31/24 08:59 5 mg QAM ZAK Administration Propranolol HCl 10 mg 12/05/24 08:15 12/11/24 05:00 Propranolol 10 Mg Tablet PO 01/04/25 08:14 Not Given TID ZAK Sodium Chloride 0 ml 12/09/24 12:15 12/09/24 11:45 Sodium Cl Irrig Soln 1,000 Ml Bag IRRIG 01/08/25 12:14 1,000 ml QDAY ZAK Administration Spironolactone 25 mg 11/26/24 14:30 12/10/24 20:12 Spironolactone 25 Mg Tablet PO 12/26/24 14:29 Not Given BID ZAK Plan Ms. 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 #Perforated gastrojejunostomy s/p repair, Gerson patch, washout, drain placement #subphrenic and pelvic abscess formation s/p CT- guided drain Patient presented with intractable watery diarrhea for the past week. No blood no mucus. Recent antibiotic use and also recent travel to [place] where she was eating local food. Patient chronically on prednisone and monoclonal antibody upadacitinib for RA. History of Lynn-en-Y gastric bypass 20 years ago. CTAP showed pneumoperitoneum, air droplets in the wall of the colon, suspicious for ischemic bowel. General surgeon Dr. Thao was consulted, on 11/23/24 patient underwent repair of perforated gastrojejunostomy, Gerson patch, washout, drain placement without complications. On admission labs showed lactic acid 2.3, LDH 352, WBC 4.9. KUB did not show significant abnormalities. CT angio C/A/P was canceled due to worsening kidney function. In the ED patient received 4L normal saline IVF bolus, azithromycin and ceftriaxone IV x 1, on admission started with vancomycin, Zosyn and fidaxomicin. Giardia, ova and parasites, H. pylori, norovirus negative. Stool calprotectin 1989.CT chest abdomen pelvis with contrast showed a subphrenic abscess and a pelvic abscess. Abscess culture growing Pseudomonas sensitive to Zosyn.D iscontinued vancomycin, 12/06 -Repeating CT abdomen pelvis with contrast showed Left subphrenic abscess has decreased in size approximately 50% -Abscess drain was 8 cc and LO drain was 10 cc. Wound VAC 100 cc. Plan: -Repeating CT abdomen pelvis with contrast tomorrow per surgery recommendation if abscess drained, LO drain remains low -Peptic ulcer bland diet, will advance as tolerated, pend surgery recommendations. Patient is passing small amount of stool and passing gas as well -IV acetaminophen 1000mg q6hr -Oxycodone 10 mg every 4 hours as needed for pain -GI Dr. Palacios consulted, Appreciate recommendations. -Infectious disease Dr. Forte, Appreciate recommendations. -general surgery following. -IV Zosyn, changed to Cipro 40 mg IV every 12 hours until 12/12 to complete antibiotic course for abdominal abscess -Monitor drain outputs #Pseudomonas PNA, treatment completed Sputum Gram stain positive for psudomonas on 11/26. Pt not experiencing fever, chest pain, SOB. WBC uptrending, afebrile. Patient was transition to p.o. antibiotics Flagyl and Cipro on 11/30, transitioned back following day due to increased leukocytosis. -zosyn 4.5 g every 8 hours for 7 days 11/26?12/03 #Anxiety Patient noted feeling anxious, had mild tachycardia, sinus. Resolved with propranolol. -Propranolol 10 mg 3 times daily #Hx of hypertension. Home medication lisinopril 20 Mg p.o. daily. -Home medication resumed #Hx of rheumatoid arthritis. Patient has long history of rheumatoid arthritis, underwent multiple treatments with methotrexate and other DMARDs, currently on prednisone 10 mg and monoclonal antibody upadacitinib for prolonged time. Plan: -upadacitinib on hold. -Prednisone 5 mg p.o. daily #Normocytic anemia. Hemoglobin noted to drop to 8.2 from 10.8, likely related from surgical procedure on 11/23. No signs of active bleeding noted on 11/24. -Monitor with daily CBC. -Transfuse pRBC for hemoglobin < 7.0. #Hx of hypothyroidism. Unknown etiology, . Patient's home medication levothyroxine 125 mcg p.o. daily. Patient's last dose increase was 2 months ago Plan: -Resumed home levothyroxine -Follow-up on thyroid functions in next 6 to 8 weeks FEN: Peptic ulcer plan diet DVT prophylaxis: Heparin GI prophylaxis: IV pantoprazole 40mg BID. Lines: Peripheral IV, wound VAC, LO drain, abscess drain CODE STATUS: Full code. Patient was seen and discussed with attending physician, Dr. Archana Nichols MD, PGY 2 Attending Provider Attestation/Addendum I have examined the patient, reviewed labs and imaging findings, discussed the case with the resident(s), and reviewed entered orders. I agree with the plan of care as outlined in this note, with these additional summaries/recommendations: Patient seen at bedside. No acute overnight events. Patient has no new symptoms to report today. LO drain has less than 10cc output in 24 hrs and PC drain approx.. 10cc in 24 hours. General surgery following and we will repeat CT abdomen tomorrow to evalulate for drain removal if output stays minimal. Previous Repeat CT abdomen/pelvis had shown left subphrenic abscess has decreased in size approximately 50%. Continue ciprofloxacin for now. Physical therapy consultation. Continue Ambien for sleep aid. Continue low-dose prednisone for history of RA. Repeat hematology and chemistry panel in AM. Dr. Magaña
[2024-12-11] MEDS: CIPROFLOXACIN/D5w 400 MG IVPB 400 MG/200 ML BAG 200 MG IV ×2 (09:30→20:34)
[2024-12-11] MEDS: SODIUM CL IRRIG SOLN 1,000 ML BAG IRRIG ×2 (09:33→10:20)
[2024-12-11] MEDS: predniSONE 5 MG TABLET PO (09:45)
[2024-12-11] MEDS: PANTOPRAZOLE 40 MG TABLET PO ×2 (09:45→20:34)
[2024-12-11] MEDS: NAPH,KPH MBDB 1 PACKET (1.5 GM) PO ×2 (09:45→20:34)
[2024-12-11] MEDS: Lisinopril 20 MG TABLET PO (09:50)
[2024-12-11] MEDS: HEPARIN SOD INJ 5000 UNIT/ML VIAL SC (09:50)
[2024-12-11] MEDS: SPIRONOLACTONE 25 MG TABLET PO (09:55)
[2024-12-11] MEDS: Magnesium Sulfate 4 GM Ivpb 4 GM/50 ML BAG IV (10:20)
[2024-12-11] MEDS: LIDOCAINE INJ 2% 20 ML VIAL IM (10:21)
--- NOTE | 2024-12-11 10:22 | PD.SURPROG ---
Documentation for date of: 12/11/24 Subjective Subjective Brief History: 54F with rheumatoid arthritis on chronic prednisone, obesity presenting yesterday with diarrhea and abdominal pain. Pt had recently traveled to [place] and also took a z-natalie which completed 11/20, and had watery diarrhea. Today pt underwent CT AP with findings of pneumoperitoneum and droplets adjacent to colon, she is on two pressors which are being weaned PMH: RA, hypothyroidism PSHx: Gastric bypass surgery, appendectomy, abdominoplasty Meds: on prednisone for years, no antiplt or anticoagulation Allergies: Bactrim Social hx: Nonsmoker Narrative: Percutaneous drain had 10cc/24h, LO 8cc/24h, pt reports feeling well overall with pain controlled, no nausea, tolerating diet Exam Vital Signs Temp Pulse Resp BP Pulse Ox O2 Del Method O2 Flow Rate 97.5 F 106 H 17 107/69 98 Room Air 3 12/11/24 08:00 12/11/24 08:00 12/11/24 08:00 12/11/24 08:00 12/11/24 08:00 12/11/24 08:00 12/08/24 11:36 FiO2 21 12/08/24 11:36 Constitutional Constitutional: no acute distress Routine Respiratory Exam Respiratory: Present no resp distress Routine Abdominal Exam Abdominal: Present soft, wound (midline wound with beefy red granulation tissue, no surrounding erythema), drain (percutaneous drain with purulent output) and ostomy (LO scant serous output); Absent tenderness or distended Results Results: Laboratory Laboratory results: results reviewed Assessment & Plan Plan 54F with RA chronically on prednisone, remote history of gastric bypass who initially presented with diarrhea, with subsequent findings of pneumoperitoneum on CT now s/p emergent laparotomy with repair of perforated gastrojejunostomy, washout and drain placement 11/23, recovering well with return of bowel function, now with abd and pelvic abscess s/p drainage 12/02, with ongoing output Repeat CT when drain output remains low, as soon as tomorrow Procedures Procedures Repair of perforated gastrojejunostomy, Gerson patch, washout, drain placement
[2024-12-11] MEDS: PROPRANOLOL 10 MG TABLET PO (15:16)
[2024-12-11] MEDS: SODIUM CHLORIDE 0.9% 250 ML 250 ML 999 ML IV (18:15)
--- NOTE | 2024-12-11 20:14 | PD.IMPROG ---
Documentation for date of: 12/11/24 Subjective Subjective Interval history: Drainage from the IR catheter is slowing down Agree with getting a repeat CT scan of the abdomen pelvis Hemoglobin hematocrit at 7.8 and 25.6 WBC count at 5.5 Exam Vital Signs Temp Pulse Resp BP Pulse Ox O2 Del Method O2 Flow Rate 97.3 F 89 17 92/58 L 96 Room Air 3 12/11/24 16:00 12/11/24 16:00 12/11/24 16:00 12/11/24 16:00 12/11/24 16:00 12/11/24 16:00 12/08/24 11:36 FiO2 21 12/08/24 11:36 Objective Labs 12/11/24 04:19 12/11/24 07:30 Labs: Laboratory Results - last 24 hr 12/11/24 12/11/24 04:19 07:30 WBC 5.5 RBC 2.51 L Hgb 7.8 L Hct 25.6 L MCV 102 H MCH 31.1 MCHC 30.5 L RDW Std Deviation 55.7 H Plt Count 331 Neut % (Auto) 57 Lymph % (Auto) 23 [place] % (Auto) 14 H Eos % (Auto) 4 Baso % (Auto) 1 Neut # (Auto) 3.1 Lymph # (Auto) 1.3 [place] # (Auto) 0.8 Eos # (Auto) 0.2 Baso # (Auto) 0.0 Immature Gran # (Auto) 0.08 H Absolute Nucleated RBC 0.07 H Immature Gran % 2 H Nucleated RBC % 1 H Sodium 140 Potassium 3.7 Chloride 104 Carbon Dioxide 26.0 Anion Gap 10 BUN 6 L Creatinine 0.9 Estim Creat Clear Calc 85.1 eGFR > 60 BUN/Creatinine Ratio 7 L Glucose 92 Calculated Osmolality 277 Calcium 8.4 Corrected Calcium 9.1 Phosphorus 3.0 Magnesium 1.6 Total Bilirubin 0.3 AST 35 H ALT 23 Alkaline Phosphatase 50 Total Protein 5.7 Albumin 3.1 L Globulin 2.6 Albumin/Globulin Ratio 1.2 Impressions Impression: # Intra-abdominal abscess/fluid collection status post repair of the perforated gastrojejunostomy requiring Gerson patch as well as washout continue current management ABG Interpretation ABG results: 11/22/24 11/23/24 11/23/24 17:58 02:09 04:07 ABG pH 7.25 L 7.22 L 7.26 L ABG pCO2 22 L 28 L 24 L ABG pO2 102 69 L D 94 D ABG HCO3 9 L* 12 L 11 L ABG O2 Saturation 97 89 L 95 ABG Base Excess -16 L -15 L -15 L 11/23/24 11/24/24 11/25/24 06:27 05:01 04:01 ABG pH 7.15 L* D 7.42 D 7.40 ABG pCO2 35 D 33 36 ABG pO2 355 H D 124 H D 92 D ABG HCO3 12 L 21 22 ABG O2 Saturation 100 H 99 H 97 ABG Base Excess -16 L -3 -2 Assessment & Plan A&P Narrative abx appear to target a late resp cx, cxr noted so rx is for apparent pneumonia as a complication of surgery presumptive peritonitis targeting of rare pseudomonas in resp cx up to you. max duration of abx for resp infection is 7d. and organism is s. to quinolones that are the same iv and po. will will again prn Time Spent With Patient Time: Total time spent is greater than 50% in coordination of care (as documented) at patient's floor/unit and/or counseling patient: Procedures Arterial Line Size (Gauge): 20
[2024-12-11] MEDS: AMBIEN 12.5 MG PO (20:34)
[2024-12-12] VITALS (11 sets, daily range): BP systolic 92–111; BP diastolic 61–69; PULSE 100–127; RESP 12–20; TEMP 36.2–36.9; O2SAT 94–98; BMI 38.2
[2024-12-12] MEDS: oxyCODONE HCL 5 MG IR TAB 10 MG PO ×2 (01:58→11:13)
[2024-12-12 05:11] LABS: Basophils # (Auto) 0.1 Thou/mm3 (0.0-0.2); Basophils % (Auto) 1 % (0-2.5); Eosinophils # (Auto) 0.2 Thou/mm3 (0.0-0.5); Eosinophils % (Auto) 4 % (0-10); Hematocrit 25.7 % (36.0-46.0); Immature Granulocytes % (Auto) 2 % (0-0); Immature Granulocytes Auto 0.13 Thou/mm3 (0.00-0.00); Lymphocytes # (Auto) 1.2 Thou/mm3 (1.0-4.8); Lymphocytes % (Auto) 21 % (10-50); Mean Corpuscular HGB Conc 30.4 g/dl (31.0-37.0); Mean Corpuscular Hemoglobin 30.2 pg (25.0-35.0); Mean Corpuscular Volume 100 fL (80-100); Monocytes # (Auto) 0.8 Thou/mm3 (0.0-0.8); Monocytes % (Auto) 15 % (0-12); Neutrophils # (Auto) 3.1 Thou/mm3 (1.8-7.7); Neutrophils % (Auto) 56 % (37-80); Nucleated Red Blood Cell # 0.12 Thou/mm3 (0.00-0.00); Nucleated Red Blood Cell % 2 /100 WBC (0); Platelet Count 246 Thou/mm3 (140-440); RDW Standard Deviation 54.4 fL (36.4-46.3); Red Blood Count 2.58 Miln/mm3 (4.00-5.20); White Blood Count 5.5 Thou/mm3 (3.6-11.0)
[2024-12-12 05:13] LABS: Hemoglobin 7.8 g/dL (12.0-16.0)
[2024-12-12] MEDS: LEVOTHYROXINE SODIUM 125 MCG TABLET PO (05:30)
[2024-12-12 05:39] LABS: Alanine Aminotransferase 19 U/L (10-49); Albumin, Serum 3.1 gm/dL (3.5-5.0); Albumin/Globulin Ratio 1.1 (1.2-2.2); Alkaline Phosphatase 50 U/L (46-116); Anion Gap 10 (7-16); Aspartate Amino Transferase 32 U/L (0-34); BUN/Creatinine Ratio 7 Ratio (12-20); Bilirubin,Total 0.3 mg/dL (0.3-1.2); Blood Urea Nitrogen 6 mg/dL (9-23); Calcium 8.4 mg/dL (8.3-10.6); Calcium (Corrected) 9.1 mg/dL (8.5-10.1); Carbon Dioxide 23.8 mMol/L (20.0-31.0); Chloride 104 mMol/L (98-107); Creatinine (Component) 0.9 mg/dL (0.6-1.3); Estimated Creatinine Clearance 84.1 mL/min (>60); Globulin 2.7 gm/dL (2.3-3.5); Glucose 94 mg/dL (74-106); Magnesium 2.1 mg/dL (1.6-2.6); Osmolality,Calculated 273 (275-295); Phosphorous 2.9 mg/dL (2.4-5.1); Potassium 3.8 mMol/L (3.4-5.1); Sodium 138 mMol/L (136-145); Total Protein 5.8 gm/dL (5.7-8.2); eGFR > 60 See Note
[2024-12-12] MEDS: NAPH,KPH MBDB 1 PACKET (1.5 GM) PO ×2 (09:50→21:20)
[2024-12-12] MEDS: HEPARIN SOD INJ 5000 UNIT/ML VIAL SC (09:50)
[2024-12-12] MEDS: PANTOPRAZOLE 40 MG TABLET PO ×2 (09:50→21:20)
[2024-12-12] MEDS: predniSONE 5 MG TABLET PO (09:50)
--- NOTE | 2024-12-12 10:54 | PD.RESDS ---
Planned Discharge Date 12/12/24 DS: Providers Provider Date of admission: 11/22/24 00:48 Primary care physician: Corazon Hermosillo MD Admitting Provider: Marin Burris MD Attending Provider on Admission: Troy Magaña MD Consults: 11/22/24 01:02 Consult to Gastroenterology Stat Comment: Intractable Diarrhea for 1 week Consulting Provider: Yanna Palacios 11/22/24 01:51 Consult to Infectious Diseases Routine Comment: Intractable Diarrhea Consulting Provider: Tamir Forte 11/22/24 20:52 Consult to General Surgery Stat Comment: Consulting Provider: Varsha Thao 11/25/24 11:09 Referral Wound Care Routine Comment: 11/25/24 11:10 Referral Nutritional Services Routine Comment: Referral Speech Therapy Stat Comment: 11/25/24 11:17 Referral Physical Therapy Urgent Comment: Physician Instructions: 11/26/24 12:34 Referral OP Wound Healing Dept Routine Comment: Instructions: Midline abdomen, exploratory lap gastric perf with mesh. Wound vac over closed fascia 12/10/24 11:13 Referral Discharge Planning Routine Comment: Discharge to [facility] Attending Provider on DC: Sadi Tatum MD Discharging Provider: Sadi Tatum MD Hospital Course Hospital Course Hospital course: Drainage from the IR catheter is slowing down Agree with getting a repeat CT scan of the abdomen pelvis Hemoglobin hematocrit at 7.8 and 25.6 WBC count at 5.5 Time Spent with Patient Time attestation: Total time spent providing and/or coordinating discharge services: Exam Vital Signs Temp Pulse Resp BP Pulse Ox O2 Del Method O2 Flow Rate 97.2 F 114 H 20 106/61 96 Room Air 3 12/12/24 08:00 12/12/24 09:05 12/12/24 09:05 12/12/24 08:00 12/12/24 09:05 12/12/24 08:00 12/08/24 11:36 FiO2 21 12/08/24 11:36 Discharge Plan Plan Patient Disposition: Xfer Skilled Nsg Fac (SNF) Patient condition on transfer: Stable Prescriptions/Referrals Prescriptions/Med Rec: New prednisone 5 mg Tablet 5 mg PO QAM 5 Days Qty: 5 0RF metronidazole 500 mg tablet 500 mg PO TID 5 Days Qty: 15 0RF hydrocodone-acetaminophen 5-325 mg tablet 1 tab PO BID MDD 2 PRN (Reason: pain) Qty: 10 0RF levothyroxine 125 mcg Tablet 125 mcg PO ACBR 30 Days Qty: 30 0RF lidocaine 5 % Adhesive Patch,Medicated 1 patch top UD PRN (Reason: Pain) 10 Days Qty: 10 0RF spironolactone 25 mg Tablet 25 mg PO BID 30 Days Qty: 60 0RF pantoprazole 40 mg Tablet,Delayed Release (Dr/Ec) 40 mg PO BID 14 Days Qty: 28 0RF alum-mag hydroxide-simeth [Mag-Al Plus] 200-200-20 mg/5 mL Suspension 30 ml PO Q4HR PRN (Reason: Upset Stomach/Indigestion) Qty: 3000 0RF Continued montelukast [Singulair] 10 MG tablet 1 tab PO QDAY Qty: 0 lisinopril 20 mg Tablet 20 mg PO QDAY albuterol sulfate 90 mcg/actuation HFA aerosol inhaler 2 inh INHALATION Q4H PRN (Reason: Wheezing) Patient Comments: TAKE 2 PUFFS BY MOUTH EVERY 4 HOURS NEEDED zolpidem [Ambien CR] 12.5 mg Tablet,Ext Release Multiphase 12.5 mg PO HS methocarbamol 750 mg tablet 750 mg PO Q8H PRN (Reason: Muscle Pain) Patient Comments: TAKE 1 TABLET BY MOUTH EVERY 8 HOURS NEEDED 15 DAYS gabapentin 300 mg capsule 300 mg PO TID Held Rinvoq 15 mg tablet extended release 24 hr 15 mg PO QDAY Hold Instructions: Resume on 11/30/24. Hold until you see your PCP Discontinued Prempro 0.625-5 mg tablet 1 tab PO QDAY levothyroxine [Synthroid] 100 MCG tablet 132 mcg PO ACBR Qty: 0 prednisone 10 mg tablet 10 mg PO QDAY Patient Comments: TAKE 1 TABLET BY MOUTH EVERY DAY Referrals: Corazon Hermosillo MD [Primary Care Provider] - Patient/Caregiver Discharge Instructions Other Discharge Activity Instructions:: 1) Follow up with Dr. Thao in 1 week, call [phone] to schedule appointment 2) Follow up at [facility], call [phone] for appointment 3) Wound care to abdomen: cleanse with normal saline, pat dry, fill wound with black foam. Drape than track pad at 125mmgh continous suction. Change Mon, Wed and Fri and as needed for falling off. Keep site clean and dry, showering when ok with home health. If unable to keep dressing on wash hands and remove all old dressing/foam pieces. Cleanse well with normal saline and pat dry with gauze. Wash hands again. Moistened dry gauze lightly with normal saline and pack wound. Cover with dry gauze and secure with tape. Change once a day until home health can replace wound vac dressing Education Materials: Peptic Ulcer, Nutrition for Wound Healing, Discharge Instructions- Eating ..., Changing Dressing Dc, Discharge Instructions Wound ..., Preventing Surgical Site Infections, Negative Pressure Wound Therapy, Understanding Perforated Ulcers Print Language: Luxembour[place] Stand Alone Forms: Brenda Award Info., Patient Portal Info Letter
--- NOTE | 2024-12-12 11:04 | XR_ITS ---
Examination: CT abdomen with intravenous contrast CT pelvis with intravenous contrast 2-D coronal reconstructions 2-D sagittal reconstructions Date and time of exam:December 12, 2024 1615 hrs. Comparison December 09, 2024 Indications: History left subphrenic abscess post catheter drainage placement CTDI: vol (mGy) 17.2 DLP: (mGycm) 971 Technique: Multiple axial sections of the abdomen and pelvis have been obtained. 64 slice high-resolution scanner used. 3 mm axial sections have been obtained, post intravenous injection 60 cc [id number] 2-D sagittal, coronal reconstructions obtained. Low dose protocols were performed. One or more of the following dose reduction techniques were used; automated exposure control, adjustment of the mA and/or KV according to patient size, use of iterative reconstruction technique. Findings: Atelectasis left lower lobe with small left pleural effusion Mild enlargement cardiac contour Left subphrenic abscess drainage catheter is in satisfactory position, no change in size of subphrenic abscess compared with December 09, 2024 No focal liver lesions Absent gallbladder No hydronephrosis Aorta normal size Postsurgical changes with left abdomen drainage 4 cm pelvic abscess is stable in size No bowel obstruction Urinary bladder wall thickening up to 5 mm Impression: Left subphrenic abscess drainage catheter is in satisfactory position, no change in size of subphrenic abscess Stable small pelvic abscess in addition
--- NOTE | 2024-12-12 12:36 | PD.RESPRO ---
Documentation for date of: 12/12/24 Subjective Subjective Interval history: Patient seen at bedside. NAEO. Patient is clinically stable . No N/V/D. No CP, Palpitations. No SOB, Tachypnea. No Fever / Chills. Patient is tolerating PO intake, has adequate urine output and mentation is at baseline. Rounded with RN. No additional complains at this time. Drains were 0 from drainages. Exam Vital Signs Temp Pulse Resp BP Pulse Ox O2 Del Method O2 Flow Rate 98.4 F 120 H 12 92/69 98 Room Air 3 12/12/24 12:00 12/12/24 12:00 12/12/24 12:00 12/12/24 12:00 12/12/24 12:00 12/12/24 12:00 12/08/24 11:36 FiO2 21 12/08/24 11:36 Narrative Exam Gen: Well-developed and well-nourished obese female. Soft, scratchy voice. HEENT: NCAT, PERRLA, EOMI, MMM, anicteric conjunctivae. CVS: normal S1 and S2. Sinus tachycardia. No M/R/G. Resp: Decreased breath sounds B/L due to body habitus. No rhonchi, rales, crackles or wheezing. Abd: soft, mildly distended, s/p laparoscopy with midline abdominal scar, appears clean, wound VAC, subphrenic abscess drain, and LO drain in place. BS+ in all 4 quadrants. Diffuse mild tenderness, most significant in LUQ. MSK: Edema BLE. Multiple ecchymosis dorsal surface BUE. Neuro: grossly intact Objective Labs 12/12/24 04:37 12/12/24 04:37 Labs: Laboratory Results - last 24 hr 12/12/24 04:37 WBC 5.5 RBC 2.58 L Hgb 7.8 L Hct 25.7 L MCV 100 MCH 30.2 MCHC 30.4 L RDW Std Deviation 54.4 H Plt Count 246 D Neut % (Auto) 56 Lymph % (Auto) 21 [place] % (Auto) 15 H Eos % (Auto) 4 Baso % (Auto) 1 Neut # (Auto) 3.1 Lymph # (Auto) 1.2 [place] # (Auto) 0.8 Eos # (Auto) 0.2 Baso # (Auto) 0.1 Immature Gran # (Auto) 0.13 H Absolute Nucleated RBC 0.12 H Immature Gran % 2 H Nucleated RBC % 2 H Sodium 138 Potassium 3.8 Chloride 104 Carbon Dioxide 23.8 Anion Gap 10 BUN 6 L Creatinine 0.9 Estim Creat Clear Calc 84.1 eGFR > 60 BUN/Creatinine Ratio 7 L Glucose 94 Calculated Osmolality 273 L Calcium 8.4 Corrected Calcium 9.1 Phosphorus 2.9 Magnesium 2.1 Total Bilirubin 0.3 AST 32 ALT 19 Alkaline Phosphatase 50 Total Protein 5.8 Albumin 3.1 L Globulin 2.7 Albumin/Globulin Ratio 1.1 L ABG Interpretation ABG results: 11/22/24 11/23/24 11/23/24 17:58 02:09 04:07 ABG pH 7.25 L 7.22 L 7.26 L ABG pCO2 22 L 28 L 24 L ABG pO2 102 69 L D 94 D ABG HCO3 9 L* 12 L 11 L ABG O2 Saturation 97 89 L 95 ABG Base Excess -16 L -15 L -15 L 11/23/24 11/24/24 11/25/24 06:27 05:01 04:01 ABG pH 7.15 L* D 7.42 D 7.40 ABG pCO2 35 D 33 36 ABG pO2 355 H D 124 H D 92 D ABG HCO3 12 L 21 22 ABG O2 Saturation 100 H 99 H 97 ABG Base Excess -16 L -3 -2 Quality Measures Quality Measures VTE prophylaxis Assessment & Plan Assessment Current Active Medications: Generic Name Dose Route Start Last Admin Trade Name Freq PRN Reason Stop Dose Admin Acetaminophen 650 mg 11/30/24 11:31 Acetaminophen 325 Mg Tablet PO 12/30/24 11:30 Q6H PRN PAIN SCALE 1-3 (mild Al Hydrox/Mg Hydrox/Simethicone 30 ml 11/22/24 00:53 Mg Hyd/Al Hyd/Sandie (Maalox Reg) Susp 30 Ml Udc PO 12/22/24 00:52 Q4HR PRN UPSET STOMACH/INDIGESTION Albuterol/Ipratropium 3 ml 11/22/24 00:45 11/23/24 02:09 Albuterol/Ipratropium (Duoneb) Rt Marichuy 3 Ml Nebu INH 12/22/24 00:44 3 ml Q2HR PRN Administration SHORTNESS OF BREATH OR WHEEZE Benzocaine 0 dose 11/27/24 11:37 Benzocaine 20% (Hurricaine) [place] 1 Dose TOP 12/27/24 11:36 PRN PRN SORE THROAT Ambien Cr 12.5 Mg 0 ea 11/30/24 21:00 12/11/24 20:34 Tablet PO 12/30/24 20:59 12.5 tablet HS ZAK Administration Guaifenesin/Dextromethorphan 1 each 12/04/24 02:07 12/04/24 05:11 Guaifenesin/Dm Tablet PO 01/03/25 02:06 1 each BID PRN Administration COUGH Heparin Sodium (Porcine) 5,000 unit 11/28/24 21:00 12/12/24 09:50 Heparin Sod Inj 5000 Unit/Ml Vial SC 12/12/24 20:59 5,000 unit BID ZAK Administration Levothyroxine Sodium 125 mcg 11/22/24 06:00 12/12/24 05:30 Levothyroxine Sodium 125 Mcg Tablet PO 12/22/24 05:59 125 mcg ACBR ZAK Administration Lidocaine 1 patch 11/26/24 13:00 12/09/24 06:37 Lidocaine 5% 1 Patch TOP 12/26/24 12:59 1 patch UD PRN Administration PAIN Protocol Ondansetron HCl 4 mg 11/22/24 00:51 11/27/24 04:13 Ondansetron Inj 2 Mg/Ml Inj 2 Ml IV 12/22/24 00:50 4 mg Q6H PRN Administration NAUSEA OR VOMITING Protocol Pantoprazole Sodium 40 mg 11/30/24 21:00 12/12/24 09:50 Pantoprazole 40 Mg Tablet PO 12/30/24 20:59 40 mg BID ZAK Administration Potassium Phos/Sodium Phos 1 packet 11/29/24 09:15 12/12/24 09:50 Naph,Kph Mbdb 1 Packet (1.5 Gm) PO 12/29/24 09:14 1 packet BID ZAK Administration Prednisone 5 mg 12/01/24 09:00 12/12/24 09:50 Prednisone 5 Mg Tablet PO 12/31/24 08:59 5 mg QAM ZAK Administration Propranolol HCl 10 mg 12/05/24 08:15 12/12/24 05:34 Propranolol 10 Mg Tablet PO 01/04/25 08:14 Not Given TID ZAK Sodium Chloride 0 ml 12/09/24 12:15 12/11/24 10:20 Sodium Cl Irrig Soln 1,000 Ml Bag IRRIG 01/08/25 12:14 1,000 ml QDAY ZAK Administration Plan Ms. 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 #Perforated gastrojejunostomy s/p repair, Gerson patch, washout, drain placement #subphrenic and pelvic abscess formation s/p CT- guided drain Patient presented with intractable watery diarrhea for the past week. No blood no mucus. Recent antibiotic use and also recent travel to [place] where she was eating local food. Patient chronically on prednisone and monoclonal antibody upadacitinib for RA. History of Lynn-en-Y gastric bypass 20 years ago. CTAP showed pneumoperitoneum, air droplets in the wall of the colon, suspicious for ischemic bowel. General surgeon Dr. Thao was consulted, on 11/23/24 patient underwent repair of perforated gastrojejunostomy, Gerson patch, washout, drain placement without complications. On admission labs showed lactic acid 2.3, LDH 352, WBC 4.9. KUB did not show significant abnormalities. CT angio C/A/P was canceled due to worsening kidney function. In the ED patient received 4L normal saline IVF bolus, azithromycin and ceftriaxone IV x 1, on admission started with vancomycin, Zosyn and fidaxomicin. Giardia, ova and parasites, H. pylori, norovirus negative. Stool calprotectin 1989.CT chest abdomen pelvis with contrast showed a subphrenic abscess and a pelvic abscess. Abscess culture growing Pseudomonas sensitive to Zosyn.Discontinued vancomycin, 12/06 -Repeating CT abdomen pelvis with contrast showed Left subphrenic abscess has decreased in size approximately 50% -Abscess drain was 8 cc and LO drain was 10 cc. Wound VAC 100 cc. Plan: -CT A/P w con ordered due to no output from drainage. -Peptic ulcer bland diet, will advance as tolerated, pend surgery recommendations. Patient is passing small amount of stool and passing gas as well -IV acetaminophen 1000mg q6hr -Oxycodone 10 mg every 4 hours as needed for pain -GI Dr. Palacios consulted, Appreciate recommendations. -Infectious disease Dr. Forte, Appreciate recommendations. -general surgery following. -IV Zosyn, changed to Cipro 40 mg IV every 12 hours until 12/12 to complete antibiotic course for abdominal abscess -Monitor drain outputs #Pseudomonas PNA, treatment completed Sputum Gram stain positive for psudomonas on 11/26. Pt not experiencing fever, chest pain, SOB. WBC uptrending, afebrile. Patient was transition to p.o. antibiotics Flagyl and Cipro on 11/30, transitioned back following day due to increased leukocytosis. -zosyn 4.5 g every 8 hours for 7 days 11/26?12/03 #Anxiety Patient noted feeling anxious, had mild tachycardia, sinus. Resolved with propranolol. -Propranolol 10 mg 3 times daily #Hx of hypertension. Home medication lisinopril 20 Mg p.o. daily. -Home medication resumed #Hx of rheumatoid arthritis. Patient has long history of rheumatoid arthritis, underwent multiple treatments with methotrexate and other DMARDs, currently on prednisone 10 mg and monoclonal antibody upadacitinib for prolonged time. Plan: -upadacitinib on hold. -Prednisone 5 mg p.o. daily #Normocytic anemia. Hemoglobin noted to drop to 8.2 from 10.8, likely related from surgical procedure on 11/23. No signs of active bleeding noted on 11/24. -Monitor with daily CBC. -Transfuse pRBC for hemoglobin < 7.0. #Hx of hypothyroidism. Unknown etiology, . Patient's home medication levothyroxine 125 mcg p.o. daily. Patient's last dose increase was 2 months ago Plan: -Resumed home levothyroxine -Follow-up on thyroid functions in next 6 to 8 weeks FEN: Peptic ulcer plan diet DVT prophylaxis: Heparin GI prophylaxis: IV pantoprazole 40mg BID. Lines: Peripheral IV, wound VAC, LO drain, abscess drain CODE STATUS: Full code. - Patient's care was discussed with my attending physician, Dr. Archana Tatum MD Internal Medicine PGY-3 Attending Provider Attestation/Addendum I have examined the patient, reviewed labs and imaging findings, discussed the case with the resident(s), and reviewed entered orders. I agree with the plan of care as outlined in this note, with these additional summaries/recommendations: Patient seen at bedside. No acute overnight events. Patient has no new symptoms to report today although continues to endorse severe generalized weakness. Patient has been working with physical therapy who recommends SNF placement when medically cleared for discharge. LO drain and PC drain appear to have had no output overnight. We will repeat CT abdomen with contrast today and discuss drain removal with general surgery. Previous Repeat CT abdomen/pelvis had shown left subphrenic abscess has decreased in size approximately 50%. Patient has completed appropriate course of antibiotics. Continue Ambien for sleep aid. Continue low-dose prednisone for history of RA. Repeat hematology and chemistry panel in AM. Dr. Magaña
--- NOTE | 2024-12-12 13:55 | PC.SS ---
Addendum entered by Camilla Short 12/12/24 16:02: SS spoke to pt Mother, Hali Chauhan in regards to switching SNFS. SS informed Hali due to the pt already having auth for [facility] and possibly being ready for DC as early as tomorrow it would be a delay for us to cancel auth and re-submit. SS informed Hali they can always request a transfer from SNF to SNF if that is something they want to pursue. Original Note: SS received a call from pt Mother Hali Chauhan [phone] who stated she does not want the pt to go to [facility] and prefers if we can try a [facility] one more time. SS reached out top Radha at [facility] who stated they didnt have beds at the initial time of referral but they do have females beds now and if SS can forward clinicals so she can present to her team. SS to send updated clinicals to [facility] via [facility].
[2024-12-12] MEDS: PROPRANOLOL 10 MG TABLET PO ×2 (14:00→21:33)
--- NOTE | 2024-12-12 16:47 | PD.IMPROG ---
Documentation for date of: 12/12/24 Subjective Subjective Interval history: Patient evaluated no nausea vomiting Exam Vital Signs Temp Pulse Resp BP Pulse Ox O2 Del Method O2 Flow Rate 98.4 F 120 H 12 96/65 98 Room Air 3 12/12/24 12:00 12/12/24 14:00 12/12/24 12:00 12/12/24 14:00 12/12/24 12:00 12/12/24 12:00 12/08/24 11:36 FiO2 21 12/08/24 11:36 Constitutional Comments: Alert oriented Routine Abdominal Exam Comments: Positive bowel sounds Objective Labs 12/12/24 04:37 12/12/24 04:37 Labs: Laboratory Results - last 24 hr 12/12/24 04:37 WBC 5.5 RBC 2.58 L Hgb 7.8 L Hct 25.7 L MCV 100 MCH 30.2 MCHC 30.4 L RDW Std Deviation 54.4 H Plt Count 246 D Neut % (Auto) 56 Lymph % (Auto) 21 [place] % (Auto) 15 H Eos % (Auto) 4 Baso % (Auto) 1 Neut # (Auto) 3.1 Lymph # (Auto) 1.2 [place] # (Auto) 0.8 Eos # (Auto) 0.2 Baso # (Auto) 0.1 Immature Gran # (Auto) 0.13 H Absolute Nucleated RBC 0.12 H Immature Gran % 2 H Nucleated RBC % 2 H Sodium 138 Potassium 3.8 Chloride 104 Carbon Dioxide 23.8 Anion Gap 10 BUN 6 L Creatinine 0.9 Estim Creat Clear Calc 84.1 eGFR > 60 BUN/Creatinine Ratio 7 L Glucose 94 Calculated Osmolality 273 L Calcium 8.4 Corrected Calcium 9.1 Phosphorus 2.9 Magnesium 2.1 Total Bilirubin 0.3 AST 32 ALT 19 Alkaline Phosphatase 50 Total Protein 5.8 Albumin 3.1 L Globulin 2.7 Albumin/Globulin Ratio 1.1 L Impressions Impression: # Intra-abdominal fluid collection requiring IR drainage Continue current management ABG Interpretation ABG results: 11/22/24 11/23/24 11/23/24 17:58 02:09 04:07 ABG pH 7.25 L 7.22 L 7.26 L ABG pCO2 22 L 28 L 24 L ABG pO2 102 69 L D 94 D ABG HCO3 9 L* 12 L 11 L ABG O2 Saturation 97 89 L 95 ABG Base Excess -16 L -15 L -15 L 11/23/24 11/24/24 11/25/24 06:27 05:01 04:01 ABG pH 7.15 L* D 7.42 D 7.40 ABG pCO2 35 D 33 36 ABG pO2 355 H D 124 H D 92 D ABG HCO3 12 L 21 22 ABG O2 Saturation 100 H 99 H 97 ABG Base Excess -16 L -3 -2 Assessment & Plan A&P Narrative abx appear to target a late resp cx, cxr noted so rx is for apparent pneumonia as a complication of surgery presumptive peritonitis targeting of rare pseudomonas in resp cx up to you. max duration of abx for resp infection is 7d. and organism is s. to quinolones that are the same iv and po. will will again prn Time Spent With Patient Time: Total time spent is greater than 50% in coordination of care (as documented) at patient's floor/unit and/or counseling patient: Procedures Arterial Line Size (Gauge): 20
[2024-12-12] MEDS: AMBIEN 12.5 MG PO (21:20)
[2024-12-13] VITALS (10 sets, daily range): BP systolic 90–104; BP diastolic 58–67; PULSE 89–105; RESP 16–20; TEMP 36.2–36.8; O2SAT 94–98; BMI 38.5
[2024-12-13] MEDS: PROPRANOLOL 10 MG TABLET PO ×3 (05:24→21:17)
[2024-12-13] MEDS: oxyCODONE/APAP 5/325 TABLET 1 TAB PO ×2 (05:24→17:22)
[2024-12-13] MEDS: LEVOTHYROXINE SODIUM 125 MCG TABLET PO (05:25)
[2024-12-13 06:20] LABS: Basophils # (Auto) 0.1 Thou/mm3 (0.0-0.2); Basophils % (Auto) 1 % (0-2.5); Eosinophils # (Auto) 0.2 Thou/mm3 (0.0-0.5); Eosinophils % (Auto) 4 % (0-10); Hematocrit 26.4 % (36.0-46.0); Immature Granulocytes % (Auto) 5 % (0-0); Immature Granulocytes Auto 0.27 Thou/mm3 (0.00-0.00); Lymphocytes # (Auto) 1.6 Thou/mm3 (1.0-4.8); Lymphocytes % (Auto) 26 % (10-50); Mean Corpuscular HGB Conc 29.9 g/dl (31.0-37.0); Mean Corpuscular Hemoglobin 30.2 pg (25.0-35.0); Mean Corpuscular Volume 101 fL (80-100); Monocytes % (Auto) 17 % (0-12); Neutrophils # (Auto) 2.8 Thou/mm3 (1.8-7.7); Neutrophils % (Auto) 47 % (37-80); Nucleated Red Blood Cell # 0.23 Thou/mm3 (0.00-0.00); Nucleated Red Blood Cell % 4 /100 WBC (0); Platelet Count 290 Thou/mm3 (140-440); RDW Standard Deviation 55.1 fL (36.4-46.3); Red Blood Count 2.62 Miln/mm3 (4.00-5.20)
[2024-12-13 06:21] LABS: Hemoglobin 7.9 g/dL (12.0-16.0)
[2024-12-13 06:50] LABS: Alanine Aminotransferase 18 U/L (10-49); Albumin, Serum 3.3 gm/dL (3.5-5.0); Albumin/Globulin Ratio 1.2 (1.2-2.2); Alkaline Phosphatase 54 U/L (46-116); Anion Gap 10 (7-16); Aspartate Amino Transferase 21 U/L (0-34); BUN/Creatinine Ratio 8 Ratio (12-20); Bilirubin,Total 0.4 mg/dL (0.3-1.2); Blood Urea Nitrogen 7 mg/dL (9-23); Calcium 8.7 mg/dL (8.3-10.6); Calcium (Corrected) 9.3 mg/dL (8.5-10.1); Carbon Dioxide 25.9 mMol/L (20.0-31.0); Chloride 105 mMol/L (98-107); Creatinine (Component) 0.9 mg/dL (0.6-1.3); Estimated Creatinine Clearance 84.4 mL/min (>60); Globulin 2.7 gm/dL (2.3-3.5); Glucose 88 mg/dL (74-106); Magnesium 1.7 mg/dL (1.6-2.6); Osmolality,Calculated 278 (275-295); Phosphorous 3.3 mg/dL (2.4-5.1); Potassium 3.2 mMol/L (3.4-5.1); Sodium 141 mMol/L (136-145); eGFR > 60 See Note
[2024-12-13] MEDS: NAPH,KPH MBDB 1 PACKET (1.5 GM) PO ×2 (07:57→21:17)
[2024-12-13] MEDS: PANTOPRAZOLE 40 MG TABLET PO ×2 (07:57→21:17)
[2024-12-13] MEDS: predniSONE 5 MG TABLET PO (07:57)
[2024-12-13] MEDS: POTASSIUM CHLORIDE 20 mEq TABCR 40 MEQ PO (09:35)
[2024-12-13] MEDS: Magnesium Sulfate 4 GM Ivpb 4 GM/50 ML BAG IV (09:36)
--- NOTE | 2024-12-13 10:10 | PD.SURPROG ---
Documentation for date of: 12/13/24 Subjective Subjective Brief History: 54F with rheumatoid arthritis on chronic prednisone, obesity presenting yesterday with diarrhea and abdominal pain. Pt had recently traveled to [place] and also took a z-natalie which completed 11/20, and had watery diarrhea. Today pt underwent CT AP with findings of pneumoperitoneum and droplets adjacent to colon, she is on two pressors which are being weaned PMH: RA, hypothyroidism PSHx: Gastric bypass surgery, appendectomy, abdominoplasty Meds: on prednisone for years, no antiplt or anticoagulation Allergies: Bactrim Social hx: Nonsmoker Narrative: Pain remains controlled, no nausea, afebrile with normal WBC. Accordion drain and LO have had scant output for the last couple days, CT repeated 12/12 showed the subphrenic abscess is unchanged since previous exam and the catheter is still in the collection Exam Vital Signs Temp Pulse Resp BP Pulse Ox O2 Del Method O2 Flow Rate 97.6 F 94 18 103/58 L 98 Room Air 3 12/13/24 08:00 12/13/24 08:00 12/13/24 08:00 12/13/24 08:00 12/13/24 08:00 12/13/24 04:00 12/08/24 11:36 FiO2 21 12/08/24 11:36 Constitutional Constitutional: no acute distress Routine Respiratory Exam Respiratory: Present no resp distress Routine Abdominal Exam Abdominal: Present soft and drain (Accordion drain with minimal purulent output, LO with scant serous output); Absent tenderness or distended Results Results: Laboratory Laboratory results: results reviewed Assessment & Plan Plan 54F with RA chronically on prednisone, remote history of gastric bypass who initially presented with diarrhea, with subsequent findings of pneumoperitoneum on CT now s/p emergent laparotomy with repair of perforated gastrojejunostomy, washout and drain placement 11/23, recovering well with return of bowel function, now with abd and pelvic abscess s/p drainage 12/02 Flush accordion drain with 10 cc of saline each shift Strict I&O Repeat CT 12/15 Procedures Procedures Repair of perforated gastrojejunostomy, Gerson patch, washout, drain placement
[2024-12-13] MEDS: ACETAMINOPHEN 325 MG TABLET 650 MG PO (13:40)
--- NOTE | 2024-12-13 14:35 | PC.SS ---
Rounding: Per Dr. Thao Fluelsy accordion drain, Strict I&O, Repeat CT 12/15
--- NOTE | 2024-12-13 14:59 | PD.RESPRO ---
Documentation for date of: 12/13/24 Subjective Subjective Interval history: Patient was seen and examined at the bedside this morning. Patient reported that she is feeling better and had no abdominal pain. Abscess drain was less than 10 cc both drains. Surgeon recommended to flush the drain and we will repeat imaging possibly on Saturday. Vitals showed blood pressure 90/60. She was saturating well on room air. Labs reviewed white count within normal limits. Hemoglobin stable at 7.9. CHEM panel was showing hypokalemia and potassium was repleted. Will continue with flushing the drain and monitor abscess drain output. All labs and orders were reviewed. Exam Vital Signs Temp Pulse Resp BP Pulse Ox O2 Del Method O2 Flow Rate 97.6 F 99 17 90/60 94 L Room Air 3 12/13/24 12:00 12/13/24 13:36 12/13/24 12:00 12/13/24 13:36 12/13/24 12:00 12/13/24 04:00 12/08/24 11:36 FiO2 21 12/08/24 11:36 Narrative Exam Gen: Well-developed and well-nourished obese female. Soft, scratchy voice. HEENT: NCAT, PERRLA, EOMI, MMM, anicteric conjunctivae. CVS: normal S1 and S2. Sinus tachycardia. No M/R/G. Resp: Decreased breath sounds B/L due to body habitus. No rhonchi, rales, crackles or wheezing. Abd: soft, mildly distended, s/p laparoscopy with midline abdominal scar, appears clean, wound VAC, subphrenic abscess drain, and LO drain in place. BS+ in all 4 quadrants. Diffuse mild tenderness, most significant in LUQ. MSK: Edema BLE. Multiple ecchymosis dorsal surface BUE. Neuro: grossly intact Objective Labs 12/13/24 04:49 12/13/24 04:49 Labs: Laboratory Results - last 24 hr 12/13/24 04:49 WBC 6.0 RBC 2.62 L Hgb 7.9 L Hct 26.4 L MCV 101 H MCH 30.2 MCHC 29.9 L RDW Std Deviation 55.1 H Plt Count 290 D Neut % (Auto) 47 Lymph % (Auto) 26 [place] % (Auto) 17 H Eos % (Auto) 4 Baso % (Auto) 1 Neut # (Auto) 2.8 Lymph # (Auto) 1.6 [place] # (Auto) 1.0 H Eos # (Auto) 0.2 Baso # (Auto) 0.1 Immature Gran # (Auto) 0.27 H Absolute Nucleated RBC 0.23 H Immature Gran % 5 H Nucleated RBC % 4 H Sodium 141 Potassium 3.2 L D Chloride 105 Carbon Dioxide 25.9 Anion Gap 10 BUN 7 L Creatinine 0.9 Estim Creat Clear Calc 84.4 eGFR > 60 BUN/Creatinine Ratio 8 L Glucose 88 Calculated Osmolality 278 Calcium 8.7 Corrected Calcium 9.3 Phosphorus 3.3 Magnesium 1.7 Total Bilirubin 0.4 AST 21 ALT 18 Alkaline Phosphatase 54 Total Protein 6.0 Albumin 3.3 L Globulin 2.7 Albumin/Globulin Ratio 1.2 ABG Interpretation ABG results: 11/22/24 11/23/24 11/23/24 17:58 02:09 04:07 ABG pH 7.25 L 7.22 L 7.26 L ABG pCO2 22 L 28 L 24 L ABG pO2 102 69 L D 94 D ABG HCO3 9 L* 12 L 11 L ABG O2 Saturation 97 89 L 95 ABG Base Excess -16 L -15 L -15 L 11/23/24 11/24/24 11/25/24 06:27 05:01 04:01 ABG pH 7.15 L* D 7.42 D 7.40 ABG pCO2 35 D 33 36 ABG pO2 355 H D 124 H D 92 D ABG HCO3 12 L 21 22 ABG O2 Saturation 100 H 99 H 97 ABG Base Excess -16 L -3 -2 Quality Measures Quality Measures VTE prophylaxis (Heparin SC) Assessment & Plan Assessment Current Active Medications: Generic Name Dose Route Start Last Admin Trade Name Freq PRN Reason Stop Dose Admin Acetaminophen 650 mg 11/30/24 11:31 12/13/24 13:40 Acetaminophen 325 Mg Tablet PO 12/30/24 11:30 650 mg Q6H PRN Administration PAIN SCALE 1-3 (mild Al Hydrox/Mg Hydrox/Simethicone 30 ml 11/22/24 00:53 Mg Hyd/Al Hyd/Sandie (Maalox Reg) Susp 30 Ml Udc PO 12/22/24 00:52 Q4HR PRN UPSET STOMACH/INDIGESTION Albuterol/Ipratropium 3 ml 11/22/24 00:45 01/06/25 02:09 Albuterol/Ipratropium (Duoneb) Rt [place] 3 Ml Nebu INH 12/22/24 00:44 3 ml Q2HR PRN Administration SHORTNESS OF BREATH OR WHEEZE Benzocaine 0 dose 11/27/24 11:37 Benzocaine 20% (Hurricaine) [place] 1 Dose TOP 12/27/24 11:36 PRN PRN SORE THROAT Ambien Cr 12.5 Mg 0 ea 11/30/24 21:00 12/12/24 21:20 Tablet PO 12/30/24 20:59 1 tablet HS ZAK Administration Guaifenesin/Dextromethorphan 1 each 12/04/24 02:07 12/04/24 05:11 Guaifenesin/Dm Tablet PO 01/03/25 02:06 1 each BID PRN Administration COUGH Levothyroxine Sodium 125 mcg 11/22/24 06:00 12/13/24 05:25 Levothyroxine Sodium 125 Mcg Tablet PO 12/22/24 05:59 125 mcg ACBR ZAK Administration Lidocaine 1 patch 11/26/24 13:00 12/09/24 06:37 Lidocaine 5% 1 Patch TOP 12/26/24 12:59 1 patch UD PRN Administration PAIN Protocol Ondansetron HCl 4 mg 11/22/24 00:51 11/27/24 04:13 Ondansetron Inj 2 Mg/Ml Inj 2 Ml IV 12/22/24 00:50 4 mg Q6H PRN Administration NAUSEA OR VOMITING Protocol Oxycodone/Acetaminophen 1 tab 12/12/24 17:25 12/13/24 05:24 Oxycodone/Apap 5/325 Tablet PO 12/17/24 17:22 1 tab Q4HR PRN Administration PAIN SCALE 4-10(Mod-Sev Pantoprazole Sodium 40 mg 11/30/24 21:00 12/13/24 07:57 Pantoprazole 40 Mg Tablet PO 12/30/24 20:59 40 mg BID ZAK Administration Potassium Phos/Sodium Phos 1 packet 11/29/24 09:15 12/13/24 07:57 Naph,Kph Mbdb 1 Packet (1.5 Gm) PO 12/29/24 09:14 1 packet BID ZAK Administration Prednisone 5 mg 12/01/24 09:00 12/13/24 07:57 Prednisone 5 Mg Tablet PO 12/31/24 08:59 5 mg QAM ZAK Administration Propranolol HCl 10 mg 12/12/24 14:39 12/13/24 13:36 Propranolol 10 Mg Tablet PO 01/04/25 08:14 10 mg TID ZAK Administration Sodium Chloride 0 ml 12/09/24 12:15 12/11/24 10:20 Sodium Cl Irrig Soln 1,000 Ml Bag IRRIG 01/08/25 12:14 1,000 ml QDAY ZAK Administration Plan Ms. 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 #Perforated gastrojejunostomy s/p repair, Gerson patch, washout, drain placement #subphrenic and pelvic abscess formation s/p CT- guided drain Patient presented with intractable watery diarrhea for the past week. No blood no mucus. Recent antibiotic use and also recent travel to [place] where she was eating local food. Patient chronically on prednisone and monoclonal antibody upadacitinib for RA. History of Lynn-en-Y gastric bypass 20 years ago. CTAP showed pneumoperitoneum, air droplets in the wall of the colon, suspicious for ischemic bowel. General surgeon Dr. Thao was consulted, on 11/23/24 patient underwent repair of perforated gastrojejunostomy, Gerson patch, washout, drain placement without complications. On admission labs showed lactic acid 2.3, LDH 352, WBC 4.9. KUB did not show significant abnormalities. CT angio C/A/P was canceled due to worsening kidney function. In the ED patient received 4L normal saline IVF bolus, azithromycin and ceftriaxone IV x 1, on admission started with vancomycin, Zosyn and fidaxomicin. Giardia, ova and parasites, H. pylori, norovirus negative. Stool calprotectin 1989.CT chest abdomen pelvis with contrast showed a subphrenic abscess and a pelvic abscess. Abscess culture growing Pseudomonas sensitive to Zosyn.Discontinued vancomycin, 12/06 -Repeating CT abdomen pelvis with contrast showed Left subphrenic abscess has decreased in size approximately 50% -Abscess drain was 8 cc and LO drain was 10 cc. Wound VAC 100 cc. Plan: -Started irrigation/flushing of the abscess drain to evaluate more output and repeating CT abdomen pelvis with contrast on 12/16 with strict BLAISE's per surgery recommendation -Peptic ulcer bland diet, will advance as tolerated, pend surgery recommendations. Patient is passing small amount of stool and passing gas as well -IV acetaminophen 1000mg q6hr -Oxycodone 10 mg every 4 hours as needed for pain -GI Dr. Palacios consulted, Appreciate recommendations. -Infectious disease Dr. Forte, Appreciate recommendations. -general surgery following. -IV Zosyn, changed to Cipro 40 mg IV every 12 hours until 12/12 to complete antibiotic course for abdominal abscess -Monitor drain outputs -Potassium was repleted. #Pseudomonas PNA, treatment completed Sputum Gram stain positive for psudomonas on 11/26. Pt not experiencing fever, chest pain, SOB. WBC uptrending, afebrile. Patient was transition to p.o. antibiotics Flagyl and Cipro on 11/30, transitioned back following day due to increased leukocytosis. -zosyn 4.5 g every 8 hours for 7 days 11/26?12/03 #Anxiety Patient noted feeling anxious, had mild tachycardia, sinus. Resolved with propranolol. -Propranolol 10 mg 3 times daily #Hx of hypertension. Home medication lisinopril 20 Mg p.o. daily. -Home medication resumed #Hx of rheumatoid arthritis. Patient has long history of rheumatoid arthritis, underwent multiple treatments with methotrexate and other DMARDs, currently on prednisone 10 mg and monoclonal antibody upadacitinib for prolonged time. Plan: -upadacitinib on hold. -Prednisone 5 mg p.o. daily #Normocytic anemia. Hemoglobin noted to drop to 8.2 from 10.8, likely related from surgical procedure on 11/23. No signs of active bleeding noted on 11/24. -Monitor with daily CBC. -Transfuse pRBC for hemoglobin < 7.0. #Hx of hypothyroidism. Unknown etiology, . Patient's home medication levothyroxine 125 mcg p.o. daily. Patient's last dose increase was 2 months ago Plan: -Resumed home levothyroxine -Follow-up on thyroid functions in next 6 to 8 weeks FEN: Peptic ulcer plan diet DVT prophylaxis: Heparin GI prophylaxis: IV pantoprazole 40mg BID. Lines: Peripheral IV, wound VAC, LO drain, abscess drain CODE STATUS: Full code. - Patient was seen and discussed with attending physician, Dr. Archana Nichols MD, PGY 2 Attending Provider Attestation/Addendum I have examined the patient, reviewed labs and imaging findings, discussed the case with the resident(s), and reviewed entered orders. I agree with the plan of care as outlined in this note, with these additional summaries/recommendations: Patient seen at bedside. No acute overnight events. Repeat CT abdomen of pelvis yesterday showed left subphrenic abscess drainage catheter in satisfactory position with no change in size of subphrenic abscess and stable small pelvic abscess in addition. For now we will continue intra-abdominal drains and daily flushing general surgery recommendations. Patient has completed antibiotic course. Given the abscesses are unchanged in size we will repeat imaging in 24 to 48 hours and consider drain removal. Continue Ambien for sleep aid. Continue low-dose prednisone for history of RA. Discussed with patient she should follow-up with financial administration officer outpatient and consider weaning off steroids. Macrocytic anemia persists and hemoglobin stable at 7.9 today. Mild hypokalemia present and replacement given. Repeat potassium in AM. Dr. Magaña
--- NOTE | 2024-12-13 17:23 | PD.IMPROG ---
Documentation for date of: 12/13/24 Subjective Subjective Interval history: Patient evaluated Hemoglobin hematocrit 7.9 and 26.4 Exam Vital Signs Temp Pulse Resp BP Pulse Ox O2 Del Method O2 Flow Rate 97.3 F 89 18 104/65 97 Room Air 3 12/13/24 16:00 12/13/24 16:00 12/13/24 16:00 12/13/24 16:00 12/13/24 16:00 12/13/24 04:00 12/08/24 11:36 FiO2 21 12/08/24 11:36 Objective Labs 12/13/24 04:49 12/13/24 04:49 Labs: Laboratory Results - last 24 hr 12/13/24 04:49 WBC 6.0 RBC 2.62 L Hgb 7.9 L Hct 26.4 L MCV 101 H MCH 30.2 MCHC 29.9 L RDW Std Deviation 55.1 H Plt Count 290 D Neut % (Auto) 47 Lymph % (Auto) 26 [place] % (Auto) 17 H Eos % (Auto) 4 Baso % (Auto) 1 Neut # (Auto) 2.8 Lymph # (Auto) 1.6 [place] # (Auto) 1.0 H Eos # (Auto) 0.2 Baso # (Auto) 0.1 Immature Gran # (Auto) 0.27 H Absolute Nucleated RBC 0.23 H Immature Gran % 5 H Nucleated RBC % 4 H Sodium 141 Potassium 3.2 L D Chloride 105 Carbon Dioxide 25.9 Anion Gap 10 BUN 7 L Creatinine 0.9 Estim Creat Clear Calc 84.4 eGFR > 60 BUN/Creatinine Ratio 8 L Glucose 88 Calculated Osmolality 278 Calcium 8.7 Corrected Calcium 9.3 Phosphorus 3.3 Magnesium 1.7 Total Bilirubin 0.4 AST 21 ALT 18 Alkaline Phosphatase 54 Total Protein 6.0 Albumin 3.3 L Globulin 2.7 Albumin/Globulin Ratio 1.2 Impressions Impression: # Catheter drainage of intra-abdominal fluid collection by IR # Although hemoglobin low but stable at 7.9 and 26.4 continue current management ABG Interpretation ABG results: 11/22/24 11/23/24 11/23/24 17:58 02:09 04:07 ABG pH 7.25 L 7.22 L 7.26 L ABG pCO2 22 L 28 L 24 L ABG pO2 102 69 L D 94 D ABG HCO3 9 L* 12 L 11 L ABG O2 Saturation 97 89 L 95 ABG Base Excess -16 L -15 L -15 L 11/23/24 11/24/24 11/25/24 06:27 05:01 04:01 ABG pH 7.15 L* D 7.42 D 7.40 ABG pCO2 35 D 33 36 ABG pO2 355 H D 124 H D 92 D ABG HCO3 12 L 21 22 ABG O2 Saturation 100 H 99 H 97 ABG Base Excess -16 L -3 -2 Assessment & Plan A&P Narrative abx appear to target a late resp cx, cxr noted so rx is for apparent pneumonia as a complication of surgery presumptive peritonitis targeting of rare pseudomonas in resp cx up to you. max duration of abx for resp infection is 7d. and organism is s. to quinolones that are the same iv and po. will will again prn Time Spent With Patient Time: Total time spent is greater than 50% in coordination of care (as documented) at patient's floor/unit and/or counseling patient: Procedures Arterial Line Size (Gauge): 20
[2024-12-13] MEDS: AMBIEN 12.5 MG PO (21:18)
[2024-12-14] VITALS (10 sets, daily range): BP systolic 95–107; BP diastolic 52–76; PULSE 93–109; RESP 15–21; TEMP 36.3–37.4; O2SAT 93–99; BMI 38.6
[2024-12-14] MEDS: oxyCODONE/APAP 5/325 TABLET 1 TAB PO ×5 (04:19→20:56)
[2024-12-14] MEDS: LEVOTHYROXINE SODIUM 125 MCG TABLET PO (05:17)
[2024-12-14] MEDS: PROPRANOLOL 10 MG TABLET PO ×2 (05:17→15:55)
[2024-12-14 06:42] LABS: Basophils # (Auto) 0.1 Thou/mm3 (0.0-0.2); Basophils % (Auto) 1 % (0-2.5); Eosinophils # (Auto) 0.2 Thou/mm3 (0.0-0.5); Eosinophils % (Auto) 4 % (0-10); Hematocrit 26.8 % (36.0-46.0); Immature Granulocytes % (Auto) 5 % (0-0); Lymphocytes # (Auto) 1.5 Thou/mm3 (1.0-4.8); Lymphocytes % (Auto) 24 % (10-50); Mean Corpuscular HGB Conc 29.9 g/dl (31.0-37.0); Mean Corpuscular Hemoglobin 30.3 pg (25.0-35.0); Mean Corpuscular Volume 102 fL (80-100); Monocytes # (Auto) 0.9 Thou/mm3 (0.0-0.8); Monocytes % (Auto) 15 % (0-12); Neutrophils # (Auto) 3.3 Thou/mm3 (1.8-7.7); Neutrophils % (Auto) 52 % (37-80); Nucleated Red Blood Cell # 0.22 Thou/mm3 (0.00-0.00); Nucleated Red Blood Cell % 4 /100 WBC (0); Platelet Count 281 Thou/mm3 (140-440); RDW Standard Deviation 56.6 fL (36.4-46.3); Red Blood Count 2.64 Miln/mm3 (4.00-5.20); White Blood Count 6.3 Thou/mm3 (3.6-11.0)
[2024-12-14 07:06] LABS: Alanine Aminotransferase 21 U/L (10-49); Albumin, Serum 3.2 gm/dL (3.5-5.0); Albumin/Globulin Ratio 1.2 (1.2-2.2); Alkaline Phosphatase 56 U/L (46-116); Anion Gap 9 (7-16); Aspartate Amino Transferase 27 U/L (0-34); BUN/Creatinine Ratio 9 Ratio (12-20); Bilirubin,Total 0.4 mg/dL (0.3-1.2); Blood Urea Nitrogen 10 mg/dL (9-23); Calcium 8.7 mg/dL (8.3-10.6); Calcium (Corrected) 9.3 mg/dL (8.5-10.1); Carbon Dioxide 26.8 mMol/L (20.0-31.0); Chloride 105 mMol/L (98-107); Creatinine (Component) 1.1 mg/dL (0.6-1.3); Estimated Creatinine Clearance 69.1 mL/min (>60); Globulin 2.7 gm/dL (2.3-3.5); Glucose 86 mg/dL (74-106); Magnesium 1.9 mg/dL (1.6-2.6); Osmolality,Calculated 279 (275-295); Phosphorous 3.8 mg/dL (2.4-5.1); Potassium 3.4 mMol/L (3.4-5.1); Sodium 141 mMol/L (136-145); Total Protein 5.9 gm/dL (5.7-8.2); eGFR 60 See Note
[2024-12-14] MEDS: Magnesium Sulfate 1 gm Ivpb 1 GM/100 ML BAG IV (08:51)
[2024-12-14] MEDS: POTASSIUM CHLORIDE 10% 20 MEQ/15 ML UDC 40 MEQ GT (08:51)
[2024-12-14] MEDS: NAPH,KPH MBDB 1 PACKET (1.5 GM) PO ×2 (08:51→20:56)
[2024-12-14] MEDS: predniSONE 5 MG TABLET PO (08:51)
[2024-12-14] MEDS: RINGERS LACTATED 1000 ML 500 ML 999 ML IV (08:52)
[2024-12-14] MEDS: PANTOPRAZOLE 40 MG TABLET PO ×2 (08:52→20:56)
--- NOTE | 2024-12-14 10:38 | PC.SS ---
SS follow up note; Patient will possibly discharge tomorrow.
[2024-12-14] MEDS: SODIUM CL IRRIG SOLN 1,000 ML BAG IRRIG ×2 (12:40→13:48)
--- NOTE | 2024-12-14 16:45 | ESPR_ITS ---
<Statement entered by Julio Nichols MD - 12/14/24 17:47> Patient was seen and examined at the bedside this morning. Patient is experiencing dizziness after ambulating. We gave her 1 L bolus of fluid in the morning and 500 cc bolus LR evening as patient was still feeling dizzy. Propranolol was held and spironolactone fell off from the orders. Will closely monitor blood pressure and keep a hold on propranolol. Patient is encouraged to ambulate with the PT. Repeating CT abdomen pelvis with contrast tomorrow morning to evaluate the abscess. Electrolytes were repleted. Close monitoring of blood pressure required. Both drain output remains low. All labs and orders reviewed. I saw and examined the patient, and I agree with current management stated by Dr Landon DO,PGY1. Plan of care was discussed with the attending physician and resident physician. Disclaimer: Despite multiple revisions, due to the dictation software being used, the document bellow may not be free of grammatical errors including phonetic/typographic errors. However, this does not deter from our commitment to providing health care in the patient's best interest in mind. Dr. Viktoria MD, PGY 2 Documentation for date of: 12/14/24 Subjective Subjective Interval history: No acute events overnight. Patient declines PT this morning due to meeting with her . She notes that she has not been able to get out of bed since her admission nor does she have the strength to sit up in bed. We encouraged patient to continue physical therapy and noted the need to continue ambulating to regain her strength. She was given 1 L bolus of LR this morning due to low BP. Exam Vital Signs Temp Pulse Resp BP Pulse Ox O2 Del Method O2 Flow Rate 98.0 F 98 19 95/69 99 Nasal Cannula 1 12/14/24 12:00 12/14/24 16:00 12/14/24 12:00 12/14/24 15:55 12/14/24 12:00 12/14/24 12:00 12/14/24 12:00 FiO2 21 12/08/24 11:36 Narrative Exam Constitutional: Not in acute distress Head: Normocephalic/Atraumatic Eyes: no conjunctival injection , symmetrical lids. ENMT: Moist Mucous Membranes CVS: RRR, S1 and S2 present, no murmurs, rubs or gallops . RESP: CTAB, no increased work of breathing, no rales, rhonchi or wheezing GI: Soft, nontender, nondistended, accordion drain in the left upper quadrant with white purulent drainage, LO drain in the left lower quadrant with serosanguineous discharge and wound VAC in the epigastric region with serosanguineous drainage. Surgical site and drain sites are clean dry and intact. No signs of erythema, swelling or tenderness.. Skin: Warm to touch, Dry. No rashes or lesions. Neuro: Awake and alert Psych: (AAO) x3 . Appropriate mood and affect. Objective Labs 12/14/24 06:05 12/15/24 04:40 Labs: Laboratory Results - last 24 hr 12/14/24 06:05 WBC 6.3 RBC 2.64 L Hgb 8.0 L Hct 26.8 L MCV 102 H MCH 30.3 MCHC 29.9 L RDW Std Deviation 56.6 H Plt Count 281 Neut % (Auto) 52 Lymph % (Auto) 24 [place] % (Auto) 15 H Eos % (Auto) 4 Baso % (Auto) 1 Neut # (Auto) 3.3 Lymph # (Auto) 1.5 [place] # (Auto) 0.9 H Eos # (Auto) 0.2 Baso # (Auto) 0.1 Immature Gran # (Auto) 0.30 H Absolute Nucleated RBC 0.22 H Immature Gran % 5 H Nucleated RBC % 4 H Sodium 141 Potassium 3.4 Chloride 105 Carbon Dioxide 26.8 Anion Gap 9 BUN 10 Creatinine 1.1 Estim Creat Clear Calc 69.1 eGFR 60 BUN/Creatinine Ratio 9 L Glucose 86 Calculated Osmolality 279 Calcium 8.7 Corrected Calcium 9.3 Phosphorus 3.8 Magnesium 1.9 Total Bilirubin 0.4 AST 27 ALT 21 Alkaline Phosphatase 56 Total Protein 5.9 Albumin 3.2 L Globulin 2.7 Albumin/Globulin Ratio 1.2 ABG Interpretation ABG results: 11/22/24 11/23/24 11/23/24 17:58 02:09 04:07 ABG pH 7.25 L 7.22 L 7.26 L ABG pCO2 22 L 28 L 24 L ABG pO2 102 69 L D 94 D ABG HCO3 9 L* 12 L 11 L ABG O2 Saturation 97 89 L 95 ABG Base Excess -16 L -15 L -15 L 11/23/24 11/24/24 11/25/24 06:27 05:01 04:01 ABG pH 7.15 L* D 7.42 D 7.40 ABG pCO2 35 D 33 36 ABG pO2 355 H D 124 H D 92 D ABG HCO3 12 L 21 22 ABG O2 Saturation 100 H 99 H 97 ABG Base Excess -16 L -3 -2 Quality Measures Quality Measures VTE prophylaxis (Heparin SC) Assessment & Plan Assessment Current Active Medications: Generic Name Dose Route Start Last Admin Trade Name Freq PRN Reason Stop Dose Admin Acetaminophen 650 mg 11/30/24 11:31 12/13/24 13:40 Acetaminophen 325 Mg Tablet PO 12/30/24 11:30 650 mg Q6H PRN Administration PAIN SCALE 1-3 (mild Al Hydrox/Mg Hydrox/Simethicone 30 ml 11/22/24 00:53 Mg Hyd/Al Hyd/Sandie (Maalox Reg) Susp 30 Ml Udc PO 12/22/24 00:52 Q4HR PRN UPSET STOMACH/INDIGESTION Albuterol/Ipratropium 3 ml 11/22/24 00:45 11/23/24 02:09 Albuterol/Ipratropium (Duoneb) Rt [place] 3 Ml Nebu INH 12/22/24 00:44 3 ml Q2HR PRN Administration SHORTNESS OF BREATH OR WHEEZE Benzocaine 0 dose 11/27/24 11:37 Benzocaine 20% (Hurricaine) [place] 1 Dose TOP 12/27/24 11:36 PRN PRN SORE THROAT Ambien Cr 12.5 Mg 0 ea 11/30/24 21:00 12/13/24 21:18 Tablet PO 12/30/24 20:59 1 tablet HS ZAK Administration Guaifenesin/Dextromethorphan 1 each 12/04/24 02:07 12/04/24 05:11 Guaifenesin/Dm Tablet PO 01/03/25 02:06 1 each BID PRN Administration COUGH Levothyroxine Sodium 125 mcg 11/22/24 06:00 12/14/24 05:17 Levothyroxine Sodium 125 Mcg Tablet PO 12/22/24 05:59 125 mcg ACBR ZAK Administration Lidocaine 1 patch 11/26/24 13:00 12/09/24 06:37 Lidocaine 5% 1 Patch TOP 12/26/24 12:59 1 patch UD PRN Administration PAIN Protocol Ondansetron HCl 4 mg 11/22/24 00:51 11/27/24 04:13 Ondansetron Inj 2 Mg/Ml Inj 2 Ml IV 12/22/24 00:50 4 mg Q6H PRN Administration NAUSEA OR VOMITING Protocol Oxycodone/Acetaminophen 1 tab 12/12/24 17:25 12/14/24 16:13 Oxycodone/Apap 5/325 Tablet PO 12/17/24 17:22 1 tab Q4HR PRN Administration PAIN SCALE 4-10(Mod-Sev Pantoprazole Sodium 40 mg 11/30/24 21:00 12/14/24 08:52 Pantoprazole 40 Mg Tablet PO 12/30/24 20:59 40 mg BID ZAK Administration Potassium Phos/Sodium Phos 1 packet 11/29/24 09:15 12/14/24 08:51 Naph,[facility] 1 Packet (1.5 Gm) PO 12/29/24 09:14 1 packet BID ZAK Administration Prednisone 5 mg 12/01/24 09:00 12/14/24 08:51 Prednisone 5 Mg Tablet PO 12/31/24 08:59 5 mg QAM ZAK Administration Propranolol HCl 10 mg 12/12/24 14:39 12/14/24 15:55 Propranolol 10 Mg Tablet PO 01/04/25 08:14 10 mg TID ZAK Administration Sodium Chloride 0 ml 12/09/24 12:15 12/14/24 13:48 Sodium Cl Irrig Soln 1,000 Ml Bag IRRIG 01/08/25 12:14 1,000 ml QDAY ZAK Administration Plan Ms. 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 #Perforated gastrojejunostomy s/p repair, Gerson patch, washout, drain placement #subphrenic and pelvic abscess formation s/p CT- guided drain Patient presented with intractable watery diarrhea for the past week. No blood no mucus. Recent antibiotic use and also recent travel to [place] where she was eating local food. Patient chronically on prednisone and monoclonal antibody upadacitinib for RA. History of Lynn-en-Y gastric bypass 20 years ago. CTAP showed pneumoperitoneum, air droplets in the wall of the colon, suspicious for ischemic bowel. General surgeon Dr. Thao was consulted, on 11/23/24 patient underwent repair of perforated gastrojejunostomy, Gerson patch, washout, drain placement without complications. On admission labs showed lactic acid 2.3, LDH 352, WBC 4.9. KUB did not show significant abnormalities. CT angio C/A/P was canceled due to worsening kidney function. In the ED patient received 4L normal saline IVF bolus, azithromycin and ceftriaxone IV x 1, on admission started with vancomycin, Zosyn and fidaxomicin. Giardia, ova and parasites, H. pylori, norovirus negative. Stool calprotectin 1989.CT chest abdomen pelvis with contrast showed a subphrenic abscess and a pelvic abscess. Abscess culture growing Pseudomonas sensitive to Zosyn.Discontinued vancomycin, 12/06 IV Zosyn, changed to Cipro 40 mg IV every 12 hours until 12/12 to complete antibiotic course for abdominal abscess Repeating CT abdomen pelvis with contrast showed Left subphrenic abscess has decreased in size approximately 50% Plan: -Started irrigation/flushing of the abscess drain to evaluate more output and repeating CT abdomen pelvis with contrast on 12/16 with strict BLAISE's per surgery recommendation -Peptic ulcer bland diet, will advance as tolerated, pend surgery recommendations. Patient is passing small amount of stool and passing gas as well -IV acetaminophen 1000mg q6hr -Oxycodone 10 mg every 4 hours as needed for pain -GI Dr. Palacios consulted, Appreciate recommendations. -Infectious disease Dr. Forte, Appreciate recommendations. -general surgery following. #Pseudomonas PNA, treatment completed Sputum Gram stain positive for psudomonas on 11/26. Pt not experiencing fever, chest pain, SOB. Patient was transition to p.o. antibiotics Flagyl and Cipro on 11/30, transitioned back following day due to increased leukocytosis. -zosyn 4.5 g every 8 hours for 7 days 11/26?12/03 #Anxiety Patient noted feeling anxious, had mild tachycardia, sinus. Resolved with propranolol. -Propranolol 10 mg 3 times daily #Hx of hypertension. Home medication lisinopril 20 Mg p.o. daily. -Home medication resumed #Hx of rheumatoid arthritis. Patient has long history of rheumatoid arthritis, underwent multiple treatments with methotrexate and other DMARDs, currently on prednisone 10 mg and monoclonal antibody upadacitinib for prolonged time. Plan: -upadacitinib on hold. -Prednisone 5 mg p.o. daily #Normocytic anemia. Hemoglobin noted to drop to 8.2 from 10.8, likely related from surgical procedure on 11/23. No signs of active bleeding noted on 11/24. -Monitor with daily CBC. -Transfuse pRBC for hemoglobin < 7.0. #Hx of hypothyroidism. Unknown etiology, . Patient's home medication levothyroxine 125 mcg p.o. daily. Patient's last dose increase was 2 months ago Plan: -Resumed home levothyroxine -Follow-up on thyroid functions in next 6 to 8 weeks FEN: Peptic ulcer plan diet DVT prophylaxis: Heparin GI prophylaxis: IV pantoprazole 40mg BID. Lines: Peripheral IV, wound VAC, LO drain, abscess drain CODE STATUS: Full code. - Patient was seen and discussed with attending physician, Dr. Archana Navarrete, PGY1 Attending Provider Attestation/Addendum I have examined the patient, reviewed labs and imaging findings, discussed the case with the resident(s), and reviewed entered orders. I agree with the plan of care as outlined in this note, with these additional summaries/recommendations: Patient seen at bedside. No acute overnight events. Patient will go for repeat CT abdomen tomorrow to evaluate intra-abdominal abscesses. For now we will continue intra-abdominal drains and daily flushing per general surgery recommendations. Patient has completed antibiotic course. Continue Ambien for sleep aid. Continue low-dose prednisone for history of RA. 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 Macrocytic anemia persists and hemoglobin stable at 7.9 today. Mild hypokalemia present and replacement given. Repeat potassium in AM. Dr. Magaña
[2024-12-14] MEDS: RINGERS LACTATED 500 ML 500 ML 999 ML IV (17:56)
[2024-12-14] MEDS: AMBIEN 12.5 MG PO (21:45)
--- NOTE | 2024-12-14 21:50 | ESPR_ITS ---
Documentation for date of: 12/14/24 Subjective Subjective Interval history: Hemoglobin hematocrit 8.0 and 26.8 IR drainage of the subphrenic fluid collection Alert oriented eating Exam Vital Signs Temp Pulse Resp BP Pulse Ox O2 Del Method O2 Flow Rate 97.4 F 93 16 96/69 93 L Room Air 1 12/14/24 16:00 12/14/24 16:00 12/14/24 16:00 12/14/24 16:00 12/14/24 16:00 12/14/24 16:00 12/14/24 12:00 FiO2 21 12/08/24 11:36 Objective Labs 12/14/24 06:05 12/14/24 06:05 Labs: Laboratory Results - last 24 hr 12/14/24 06:05 WBC 6.3 RBC 2.64 L Hgb 8.0 L Hct 26.8 L MCV 102 H MCH 30.3 MCHC 29.9 L RDW Std Deviation 56.6 H Plt Count 281 Neut % (Auto) 52 Lymph % (Auto) 24 [place] % (Auto) 15 H Eos % (Auto) 4 Baso % (Auto) 1 Neut # (Auto) 3.3 Lymph # (Auto) 1.5 [place] # (Auto) 0.9 H Eos # (Auto) 0.2 Baso # (Auto) 0.1 Immature Gran # (Auto) 0.30 H Absolute Nucleated RBC 0.22 H Immature Gran % 5 H Nucleated RBC % 4 H Sodium 141 Potassium 3.4 Chloride 105 Carbon Dioxide 26.8 Anion Gap 9 BUN 10 Creatinine 1.1 Estim Creat Clear Calc 69.1 eGFR 60 BUN/Creatinine Ratio 9 L Glucose 86 Calculated Osmolality 279 Calcium 8.7 Corrected Calcium 9.3 Phosphorus 3.8 Magnesium 1.9 Total Bilirubin 0.4 AST 27 ALT 21 Alkaline Phosphatase 56 Total Protein 5.9 Albumin 3.2 L Globulin 2.7 Albumin/Globulin Ratio 1.2 Impressions Impression: # Subphrenic abscess requiring IR drainage Continue current management ABG Interpretation ABG results: 11/22/24 11/23/24 11/23/24 17:58 02:09 04:07 ABG pH 7.25 L 7.22 L 7.26 L ABG pCO2 22 L 28 L 24 L ABG pO2 102 69 L D 94 D ABG HCO3 9 L* 12 L 11 L ABG O2 Saturation 97 89 L 95 ABG Base Excess -16 L -15 L -15 L 11/23/24 11/24/24 11/25/24 06:27 05:01 04:01 ABG pH 7.15 L* D 7.42 D 7.40 ABG pCO2 35 D 33 36 ABG pO2 355 H D 124 H D 92 D ABG HCO3 12 L 21 22 ABG O2 Saturation 100 H 99 H 97 ABG Base Excess -16 L -3 -2 Assessment & Plan A&P Narrative abx appear to target a late resp cx, cxr noted so rx is for apparent pneumonia as a complication of surgery presumptive peritonitis targeting of rare pseudomonas in resp cx up to you. max duration of abx for resp infection is 7d. and organism is s. to quinolones that are the same iv and po. will will again prn Time Spent With Patient Time: Total time spent is greater than 50% in coordination of care (as documented) at patient's floor/unit and/or counseling patient: Procedures Arterial Line Size (Gauge): 20
[2024-12-15] VITALS (7 sets, daily range): BP systolic 98–115; BP diastolic 66–75; PULSE 105–145; RESP 17–20; TEMP 36–36.9; O2SAT 91–96; BMI 12.0
[2024-12-15] MEDS: oxyCODONE/APAP 5/325 TABLET 1 TAB PO ×4 (03:30→17:44)
[2024-12-15] MEDS: LEVOTHYROXINE SODIUM 125 MCG TABLET PO (05:20)
[2024-12-15 07:16] LABS: Alanine Aminotransferase 13 U/L (10-49); Albumin, Serum 3.1 gm/dL (3.5-5.0); Albumin/Globulin Ratio 1.2 (1.2-2.2); Alkaline Phosphatase 61 U/L (46-116); Anion Gap 12 (7-16); Aspartate Amino Transferase 15 U/L (0-34); BUN/Creatinine Ratio 12 Ratio (12-20); Bilirubin,Total 0.3 mg/dL (0.3-1.2); Blood Urea Nitrogen 11 mg/dL (9-23); Calcium 8.7 mg/dL (8.3-10.6); Calcium (Corrected) 9.4 mg/dL (8.5-10.1); Carbon Dioxide 23.9 mMol/L (20.0-31.0); Chloride 100 mMol/L (98-107); Creatinine (Component) 0.9 mg/dL (0.6-1.3); Estimated Creatinine Clearance 84.5 mL/min (>60); Globulin 2.6 gm/dL (2.3-3.5); Glucose 86 mg/dL (74-106); Magnesium 1.6 mg/dL (1.6-2.6); Osmolality,Calculated 270 (275-295); Phosphorous 3.2 mg/dL (2.4-5.1); Potassium 3.6 mMol/L (3.4-5.1); Sodium 136 mMol/L (136-145); Total Protein 5.7 gm/dL (5.7-8.2); eGFR > 60 See Note
--- NOTE | 2024-12-15 08:57 | PC.NURSE ---
[facility]24 [facility] 0100 to 0700.
--- NOTE | 2024-12-15 09:00 | XR_ITS ---
Examination: CT abdomen with intravenous contrast CT pelvis with intravenous contrast 2-D coronal reconstructions 2-D sagittal reconstructions Date and time of exam:December 15, 2024 0822 hours Comparison December 12, 2024 INDICATIONS: History abdominal pain fever 2 weeks, history left subphrenic abscess left pelvic abscess on CT examination December 12, 2024. CTDI: vol (mGy) 16.4 DLP: (mGycm) 442 Technique: Multiple axial sections of the abdomen and pelvis have been obtained. 64 slice high-resolution scanner used. 3 mm axial sections have been obtained, post intravenous injection 60 cc [id number] 2-D sagittal, coronal reconstructions obtained. Low dose protocols were performed. One or more of the following dose reduction techniques were used; automated exposure control, adjustment of the mA and/or KV according to patient size, use of iterative reconstruction technique. Findings: Small left pleural effusion Decrease in size of left subphrenic abscess compared with December 12, 2021, drainage catheter satisfactory position Fatty infiltration throughout the liver Absent gallbladder Suspicious on this study for 12 mm hypodense mass body the pancreas No hydronephrosis No bowel obstruction Mid abdominal incision with catheter in the lower anterior abdomen Small pelvic abscess noted, 29 mm Urinary bladder intact Possible 14 mm abscess posterior to the urinary bladder IMPRESSION: Decrease in size of left subphrenic abscess, consider removal of the drainage catheter
[2024-12-15] MEDS: NAPH,KPH MBDB 1 PACKET (1.5 GM) PO ×2 (09:19→20:43)
[2024-12-15] MEDS: PANTOPRAZOLE 40 MG TABLET PO ×2 (09:19→20:43)
[2024-12-15] MEDS: predniSONE 5 MG TABLET PO (09:19)
[2024-12-15] MEDS: Magnesium Sulfate 2 GM Ivpb 2 GM/50 ML BAG IV (09:19)
--- NOTE | 2024-12-15 10:18 | EKG_ITS ---
[facility] Test Date: 2024-12-15 Pat Name: ANEUDY AUGUSTIN [facility] Hr Leader: COLE : 1970 Requested By: Taz Colón Order Number: [id number] Reading MD: Taz Colón Measurements Intervals [place] Rate: 123 P: 45 ND: 155 QRS: 23 QRSD: 85 T: 104 QT: 303 QTc: 435 Interpretive Statements SINUS TACHYCARDIA NONSPECIFIC ST & T-WAVE ABNORMALITY Compared to ECG 11/27/2024 08:42:00 No significant changes /store/NU/[id number]
--- NOTE | 2024-12-15 13:21 | ESPR_ITS ---
<Statement entered by Julio Nichols MD - 12/15/24 15:17> Patient was seen and examined at the bedside this morning. She was resting comfortably and had no shortness of breath. Noted to have difficulty walking and felt dizzy with physical therapy most likely deconditioning. CT abdominal pelvis showed multiple small pelvic abscess there for surgery, Dr. Thao will take the patient tomorrow to the OR for wound debridement and recommended discharge tomorrow when she remove the abscess drain. No acute overnight events reported. Patient remained afebrile and white count stable. All labs and orders were reviewed. I saw and examined the patient, and I agree with current management stated by Dr Lavon MD,PGY1. Plan of care was discussed with the attending physician and resident physician. Disclaimer: Despite multiple revisions, due to the dictation software being used, the document bellow may not be free of grammatical errors including phonetic/typographic errors. However, this does not deter from our commitment to providing health care in the patient's best interest in mind. Dr. Viktoria MD, PGY 2 Documentation for date of: 12/15/24 Subjective Subjective Interval history: No overnight events. Patient seen examined at bedside. Patient resting comfortably, no complaints of shortness of breath, nausea, fevers, chills. Notes difficulty with physical therapy, likely deconditioned. Plan for wound debridement and removal of drains tomorrow, likely DC. Exam Vital Signs Temp Pulse Resp BP Pulse Ox O2 Del Method O2 Flow Rate 98.3 F 115 H 18 98/66 95 Room Air 2 12/15/24 12:00 12/15/24 12:12/15/24 12:12/15/24 12:12/15/24 12:12/15/24 12:12/15/24 12:00 FiO2 21 12/08/24 11:36 Narrative Exam Constitutional: Not in acute distress Head: Normocephalic/Atraumatic Eyes: no conjunctival injection , symmetrical lids. ENMT: Moist Mucous Membranes CVS: RRR, S1 and S2 present, no murmurs, rubs or gallops . RESP: CTAB, no increased work of breathing, no rales, rhonchi or wheezing GI: Soft, nontender, nondistended, accordion drain in the left upper quadrant with white purulent drainage, LO drain in the left lower quadrant with serosanguineous discharge and wound VAC in the epigastric region with serosanguineous drainage. Surgical site and drain sites are clean dry and intact. No signs of erythema, swelling or tenderness at drain site. Mild diffuse abdominal tenderness. Skin: Warm to touch, Dry. No rashes or lesions. Neuro: Awake and alert Psych: (AAO) x3 . Appropriate mood and affect. Objective Labs 12/14/24 06:05 12/15/24 04:40 Labs: Laboratory Results - last 24 hr 12/15/24 04:40 Sodium 136 Potassium 3.6 Chloride 100 Carbon Dioxide 23.9 Anion Gap 12 BUN 11 Creatinine 0.9 Estim Creat Clear Calc 84.5 eGFR > 60 BUN/Creatinine Ratio 12 Glucose 86 Calculated Osmolality 270 L Calcium 8.7 Corrected Calcium 9.4 Phosphorus 3.2 Magnesium 1.6 Total Bilirubin 0.3 AST 15 ALT 13 Alkaline Phosphatase 61 Total Protein 5.7 Albumin 3.1 L Globulin 2.6 Albumin/Globulin Ratio 1.2 ABG Interpretation ABG results: 11/22/24 11/23/24 11/23/24 17:58 02:09 04:07 ABG pH 7.25 L 7.22 L 7.26 L ABG pCO2 22 L 28 L 24 L ABG pO2 102 69 L D 94 D ABG HCO3 9 L* 12 L 11 L ABG O2 Saturation 97 89 L 95 ABG Base Excess -16 L -15 L -15 L 11/23/24 11/24/24 11/25/24 06:27 05:01 04:01 ABG pH 7.15 L* D 7.42 D 7.40 ABG pCO2 35 D 33 36 ABG pO2 355 H D 124 H D 92 D ABG HCO3 12 L 21 22 ABG O2 Saturation 100 H 99 H 97 ABG Base Excess -16 L -3 -2 Quality Measures Quality Measures VTE prophylaxis (Heparin SC) Assessment & Plan Assessment Current Active Medications: Generic Name Dose Route Start Last Admin Trade Name Freq PRN Reason Stop Dose Admin Acetaminophen 650 mg 11/30/24 11:31 12/13/24 13:40 Acetaminophen 325 Mg Tablet PO 12/30/24 11:30 650 mg Q6H PRN Administration PAIN SCALE 1-3 (mild Al Hydrox/Mg Hydrox/Simethicone 30 ml 11/22/24 00:53 Mg Hyd/Al Hyd/Sandie (Maalox Reg) Susp 30 Ml Udc PO 12/22/24 00:52 Q4HR PRN UPSET STOMACH/INDIGESTION Albuterol/Ipratropium 3 ml 11/22/24 00:45 11/23/24 02:09 Albuterol/Ipratropium (Duoneb) Rt Marichuy 3 Ml Nebu INH 12/22/24 00:44 3 ml Q2HR PRN Administration SHORTNESS OF BREATH OR WHEEZE Benzocaine 0 dose 11/27/24 11:37 Benzocaine 20% (Hurricaine) [place] 1 Dose TOP 12/27/24 11:36 PRN PRN SORE THROAT Ambien Cr 12.5 Mg 0 ea 11/30/24 21:00 12/14/24 21:45 Tablet PO 12/30/24 20:59 1 tablet HS ZAK Administration Guaifenesin/Dextromethorphan 1 each 12/04/24 02:07 12/04/24 05:11 Guaifenesin/Dm Tablet PO 01/03/25 02:06 1 each BID PRN Administration COUGH Levothyroxine Sodium 125 mcg 11/22/24 06:00 12/15/24 05:20 Levothyroxine Sodium 125 Mcg Tablet PO 12/22/24 05:59 125 mcg ACBR ZAK Administration Lidocaine 1 patch 11/26/24 13:00 12/09/24 06:37 Lidocaine 5% 1 Patch TOP 12/26/24 12:59 1 patch UD PRN Administration PAIN Protocol Ondansetron HCl 4 mg 11/22/24 00:51 11/27/24 04:13 Ondansetron Inj 2 Mg/Ml Inj 2 Ml IV 12/22/24 00:50 4 mg Q6H PRN Administration NAUSEA OR VOMITING Protocol Oxycodone/Acetaminophen 1 tab 12/12/24 17:25 12/15/24 12:56 Oxycodone/Apap 5/325 Tablet PO 12/17/24 17:22 1 tab Q4HR PRN Administration PAIN SCALE 4-10(Mod-Sev Pantoprazole Sodium 40 mg 11/30/24 21:00 12/15/24 09:19 Pantoprazole 40 Mg Tablet PO 12/30/24 20:59 40 mg BID ZAK Administration Potassium Phos/Sodium Phos 1 packet 11/29/24 09:15 12/15/24 09:19 Naph,[facility] Mbdb 1 Packet (1.5 Gm) PO 12/29/24 09:14 1 packet BID ZAK Administration Prednisone 5 mg 12/01/24 09:00 12/15/24 09:19 Prednisone 5 Mg Tablet PO 12/31/24 08:59 5 mg QAM ZAK Administration Propranolol HCl 10 mg 12/12/24 14:39 12/14/24 15:55 Propranolol 10 Mg Tablet PO 01/04/25 08:14 10 mg TID ZAK Administration Sodium Chloride 0 ml 12/09/24 12:15 12/15/24 09:20 Sodium Cl Irrig Soln 1,000 Ml Bag IRRIG 01/08/25 12:14 Not Given QDAY ZAK Plan Ms. 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 #Perforated gastrojejunostomy s/p repair, Gerson patch, washout, drain placement #subphrenic and pelvic abscess formation s/p CT- guided drain Patient presented with intractable watery diarrhea for the past week. No blood no mucus. Recent antibiotic use and also recent travel to [place] where she was eating local food. Patient chronically on prednisone and monoclonal antibody upadacitinib for RA. History of Lynn-en-Y gastric bypass 20 years ago. CTAP showed pneumoperitoneum, air droplets in the wall of the colon, suspicious for ischemic bowel. General surgeon Dr. Thao was consulted, on 11/23/24 patient underwent repair of perforated gastrojejunostomy, Gerson patch, washout, drain placement without complications. On admission labs showed lactic acid 2.3, LDH 352, WBC 4.9. KUB did not show significant abnormalities. CT angio C/A/P was canceled due to worsening kidney function. In the ED patient received 4L normal saline IVF bolus, azithromycin and ceftriaxone IV x 1, on admission started with vancomycin, Zosyn and fidaxomicin. Giardia, ova and parasites, H. pylori, norovirus negative. Stool calprotectin 1989.CT chest abdomen pelvis with contrast showed a subphrenic abscess and a pelvic abscess. Abscess culture growing Pseudomonas sensitive to Zosyn.Discontinued vancomycin, 12/06 IV Zosyn, changed to Cipro 40 mg IV every 12 hours until 12/12 to complete antibiotic course for abdominal abscess Repeating CT abdomen pelvis with contrast showed Left subphrenic abscess has decreased in size approximately 50% Repeat CT 12/15 showed decrease in all abscesses. -Started irrigation/flushing of the abscess drain to evaluate more output and repeating CT abdomen pelvis with contrast on 12/16 with strict BLAISE's per surgery recommendation -Peptic ulcer bland diet, will advance as tolerated, pend surgery recommendations. Patient is passing small amount of stool and passing gas as well -IV acetaminophen 1000mg q6hr -Oxycodone 10 mg every 4 hours as needed for pain -GI Dr. Palacios consulted, Appreciate recommendations. -Infectious disease Dr. Forte, Appreciate recommendations. -general surgery following. -Plan for wound debridement and drain removal tomorrow #Pseudomonas PNA, treatment completed Sputum Gram stain positive for psudomonas on 11/26. Pt not experiencing fever, chest pain, SOB. Patient was transition to p.o. antibiotics Flagyl and Cipro on 11/30, transitioned back following day due to increased leukocytosis. -zosyn 4.5 g every 8 hours for 7 days 11/26?12/03 #Anxiety Patient noted feeling anxious, had mild tachycardia, sinus. Resolved with propranolol. -Propranolol 10 mg 3 times daily #Hx of hypertension. Home medication lisinopril 20 Mg p.o. daily. -Home medication resumed #Hx of rheumatoid arthritis. Patient has long history of rheumatoid arthritis, underwent multiple treatments with methotrexate and other DMARDs, currently on prednisone 10 mg and monoclonal antibody upadacitinib for prolonged time. -upadacitinib on hold. -Prednisone 5 mg p.o. daily #Normocytic anemia. Hemoglobin noted to drop to 8.2 from 10.8, likely related from surgical procedure on 11/23. No signs of active bleeding noted on 11/24. -Monitor with daily CBC. -Transfuse pRBC for hemoglobin < 7.0. #Hx of hypothyroidism. Unknown etiology, . Patient's home medication levothyroxine 125 mcg p.o. daily. Patient's last dose increase was 2 months ago Plan: -Resumed home levothyroxine -Follow-up on thyroid functions in next 6 to 8 weeks FEN: Peptic ulcer plan diet DVT prophylaxis: Heparin GI prophylaxis: IV pantoprazole 40mg BID. Lines: Peripheral IV, wound VAC, LO drain, abscess drain CODE STATUS: Full code. Plan of care discussed with senior resident Dr. Nichols PGY?[address] Magaña. Marcus Norman MD PGY?1 Attending Provider Attestation/Addendum I have examined the patient, reviewed labs and imaging findings, discussed the case with the resident(s), and reviewed entered orders. I agree with the plan of care as outlined in this note, with these additional summaries/recommendations: Patient seen at bedside. No acute overnight events. Patient has no new symptoms to report today. Repeat CT of abdomen/pelvis today showed decrease in size of left subphrenic abscess, although did reveal small pelvic abscess and possible 14 mm abscess posterior to urinary bladder. Patient's leukocytosis has resolved. She has completed antibiotic course. She is trending towards discharge. Appreciate surgical recs and likely remove intra-abdominal drains tomorrow. Patient encouraged to continue to increase her mobilization and ambulate. Continue Ambien for sleep aid. Continue low-dose prednisone for history of RA. 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 Macrocytic anemia persists and hemoglobin stable at 7.9 today. Mild hypokalemia present and replacement given. Repeat potassium in AM. Dr. Magaña
--- NOTE | 2024-12-15 20:42 | PD.IMPROG ---
Documentation for date of: 12/15/24 Subjective Subjective Interval history: Patient evaluated. Hemoglobin hematocrit 8.0 and 26.8 Exam Vital Signs Temp Pulse Resp BP Pulse Ox O2 Del Method O2 Flow Rate 96.8 F 113 H 18 115/75 96 Room Air 2 12/15/24 16:00 12/15/24 16:00 12/15/24 16:00 12/15/24 16:00 12/15/24 16:00 12/15/24 16:00 12/15/24 16:00 FiO2 21 12/08/24 11:36 Objective Labs 12/14/24 06:05 12/15/24 04:40 Labs: Laboratory Results - last 24 hr 12/15/24 04:40 Sodium 136 Potassium 3.6 Chloride 100 Carbon Dioxide 23.9 Anion Gap 12 BUN 11 Creatinine 0.9 Estim Creat Clear Calc 84.5 eGFR > 60 BUN/Creatinine Ratio 12 Glucose 86 Calculated Osmolality 270 L Calcium 8.7 Corrected Calcium 9.4 Phosphorus 3.2 Magnesium 1.6 Total Bilirubin 0.3 AST 15 ALT 13 Alkaline Phosphatase 61 Total Protein 5.7 Albumin 3.1 L Globulin 2.6 Albumin/Globulin Ratio 1.2 Impressions Impression: # Subphrenic abscess requiring IR drainage Continue current management ABG Interpretation ABG results: 11/22/24 11/23/24 11/23/24 17:58 02:09 04:07 ABG pH 7.25 L 7.22 L 7.26 L ABG pCO2 22 L 28 L 24 L ABG pO2 102 69 L D 94 D ABG HCO3 9 L* 12 L 11 L ABG O2 Saturation 97 89 L 95 ABG Base Excess -16 L -15 L -15 L 11/23/24 11/24/24 11/25/24 06:27 05:01 04:01 ABG pH 7.15 L* D 7.42 D 7.40 ABG pCO2 35 D 33 36 ABG pO2 355 H D 124 H D 92 D ABG HCO3 12 L 21 22 ABG O2 Saturation 100 H 99 H 97 ABG Base Excess -16 L -3 -2 Assessment & Plan A&P Narrative abx appear to target a late resp cx, cxr noted so rx is for apparent pneumonia as a complication of surgery presumptive peritonitis targeting of rare pseudomonas in resp cx up to you. max duration of abx for resp infection is 7d. and organism is s. to quinolones that are the same iv and po. will will again prn Time Spent With Patient Time: Total time spent is greater than 50% in coordination of care (as documented) at patient's floor/unit and/or counseling patient: Procedures Arterial Line Size (Gauge): 20
[2024-12-15] MEDS: AMBIEN 12.5 MG PO (20:43)
[2024-12-15 21:16] LABS: Basophils # (Auto) 0.1 Thou/mm3 (0.0-0.2); Basophils % (Auto) 1 % (0-2.5); Eosinophils # (Auto) 0.2 Thou/mm3 (0.0-0.5); Eosinophils % (Auto) 2 % (0-10); Hematocrit 26.7 % (36.0-46.0); Immature Granulocytes % (Auto) 5 % (0-0); Immature Granulocytes Auto 0.37 Thou/mm3 (0.00-0.00); Lymphocytes # (Auto) 1.5 Thou/mm3 (1.0-4.8); Lymphocytes % (Auto) 21 % (10-50); Mean Corpuscular HGB Conc 30.3 g/dl (31.0-37.0); Mean Corpuscular Hemoglobin 29.7 pg (25.0-35.0); Mean Corpuscular Volume 98 fL (80-100); Monocytes % (Auto) 15 % (0-12); Neutrophils # (Auto) 3.8 Thou/mm3 (1.8-7.7); Neutrophils % (Auto) 55 % (37-80); Nucleated Red Blood Cell # 0.16 Thou/mm3 (0.00-0.00); Nucleated Red Blood Cell % 2 /100 WBC (0); Platelet Count 266 Thou/mm3 (140-440); Red Blood Count 2.73 Miln/mm3 (4.00-5.20); White Blood Count 6.8 Thou/mm3 (3.6-11.0)
[2024-12-15 21:22] LABS: Hemoglobin 8.1 g/dL (12.0-16.0)
[2024-12-16] VITALS (7 sets, daily range): BP systolic 90–116; BP diastolic 58–73; PULSE 91–124; RESP 16–19; TEMP 36.2–37.3; O2SAT 93–100; BMI 38.6
[2024-12-16] MEDS: oxyCODONE/APAP 5/325 TABLET 1 TAB PO ×3 (04:11→14:30)
[2024-12-16] MEDS: LEVOTHYROXINE SODIUM 125 MCG TABLET PO (06:33)
[2024-12-16 06:43] LABS: Basophils # (Auto) 0.1 Thou/mm3 (0.0-0.2); Basophils % (Auto) 1 % (0-2.5); Eosinophils # (Auto) 0.2 Thou/mm3 (0.0-0.5); Eosinophils % (Auto) 3 % (0-10); Hematocrit 26.6 % (36.0-46.0); Immature Granulocytes % (Auto) 5 % (0-0); Immature Granulocytes Auto 0.37 Thou/mm3 (0.00-0.00); Lymphocytes # (Auto) 1.2 Thou/mm3 (1.0-4.8); Lymphocytes % (Auto) 17 % (10-50); Mean Corpuscular HGB Conc 30.1 g/dl (31.0-37.0); Mean Corpuscular Hemoglobin 29.7 pg (25.0-35.0); Mean Corpuscular Volume 99 fL (80-100); Monocytes # (Auto) 0.7 Thou/mm3 (0.0-0.8); Monocytes % (Auto) 9 % (0-12); Neutrophils # (Auto) 4.6 Thou/mm3 (1.8-7.7); Neutrophils % (Auto) 65 % (37-80); Nucleated Red Blood Cell # 0.13 Thou/mm3 (0.00-0.00); Nucleated Red Blood Cell % 2 /100 WBC (0); Platelet Count 231 Thou/mm3 (140-440); RDW Standard Deviation 54.4 fL (36.4-46.3); Red Blood Count 2.69 Miln/mm3 (4.00-5.20); White Blood Count 7.1 Thou/mm3 (3.6-11.0)
[2024-12-16 07:08] LABS: Alanine Aminotransferase 12 U/L (10-49); Albumin, Serum 3.1 gm/dL (3.5-5.0); Albumin/Globulin Ratio 1.3 (1.2-2.2); Alkaline Phosphatase 63 U/L (46-116); Anion Gap 11 (7-16); Aspartate Amino Transferase 11 U/L (0-34); BUN/Creatinine Ratio 13 Ratio (12-20); Bilirubin,Total 0.4 mg/dL (0.3-1.2); Blood Urea Nitrogen 13 mg/dL (9-23); Calcium 8.8 mg/dL (8.3-10.6); Calcium (Corrected) 9.5 mg/dL (8.5-10.1); Carbon Dioxide 26.1 mMol/L (20.0-31.0); Chloride 101 mMol/L (98-107); Globulin 2.4 gm/dL (2.3-3.5); Glucose 81 mg/dL (74-106); Magnesium 1.7 mg/dL (1.6-2.6); Osmolality,Calculated 274 (275-295); Phosphorous 3.6 mg/dL (2.4-5.1); Potassium 3.7 mMol/L (3.4-5.1); Sodium 138 mMol/L (136-145); Total Protein 5.5 gm/dL (5.7-8.2); eGFR > 60 See Note
[2024-12-16] MEDS: NAPH,KPH MBDB 1 PACKET (1.5 GM) PO (09:14)
[2024-12-16] MEDS: predniSONE 5 MG TABLET PO (09:14)
[2024-12-16] MEDS: PANTOPRAZOLE 40 MG TABLET PO (09:14)
--- NOTE | 2024-12-16 09:27 | PC.SS ---
SS contacted Melisa from [facility] [phone], no answer. VM left.
[2024-12-16] MEDS: MORPHINE SULF INJ 10 MG/ML VIAL 2 MG IVP (10:48)
--- NOTE | 2024-12-16 11:34 | PD.SURPROG ---
Documentation for date of: 12/16/24 Subjective Subjective Brief History: 54F with rheumatoid arthritis on chronic prednisone, obesity presenting yesterday with diarrhea and abdominal pain. Pt had recently traveled to [place] and also took a z-natalie which completed 11/20, and had watery diarrhea. Today pt underwent CT AP with findings of pneumoperitoneum and droplets adjacent to colon, she is on two pressors which are being weaned PMH: RA, hypothyroidism PSHx: Gastric bypass surgery, appendectomy, abdominoplasty Meds: on prednisone for years, no antiplt or anticoagulation Allergies: Bactrim Social hx: Nonsmoker Narrative: Pain controlled, CT yesterday showed near resolution of subphrenic abscess, drain had more output overnight. Patient remained afebrile with normal WBC Exam Vital Signs Temp Pulse Resp BP Pulse Ox O2 Del Method O2 Flow Rate 99.2 F 124 H 19 100/70 98 Room Air 2 12/16/24 08:00 12/16/24 11:30 12/16/24 08:00 12/16/24 08:00 12/16/24 08:00 12/16/24 08:00 12/15/24 16:00 FiO2 21 12/08/24 11:36 Constitutional Constitutional: no acute distress Routine Respiratory Exam Respiratory: Present no resp distress Routine Abdominal Exam Abdominal: Present soft and wound (Midline wound with minimal fibrinous tissue, surrounded by beefy red granulation tissue, no surrounding erythema, no fluctuance or tenderness); Absent tenderness or distended Results Results: Laboratory Laboratory results: results reviewed Results: Imaging CT scan - abdomen: report reviewed and image reviewed Assessment & Plan Plan 54F with RA chronically on prednisone, remote history of gastric bypass who initially presented with diarrhea, with subsequent findings of pneumoperitoneum on CT now s/p emergent laparotomy with repair of perforated gastrojejunostomy, washout and drain placement 11/23, recovering well with return of bowel function, now with abd and pelvic abscess s/p drainage 12/02, Recovering well now with abscess significantly decreased Drains removed today Okay for DC from my standpoint Will follow-up as outpatient in 2 weeks Procedures Procedures Repair of perforated gastrojejunostomy, Gerson patch, washout, drain placement
--- NOTE | 2024-12-16 11:53 | PC.SS ---
Addendum entered by Aisha Callejas 12/16/24 15:40: SS follow up note; [employer] transportation will transport patient at 4:15PM. SS updated nurse, Stacy as well as [facility] and patient was made aware as well. Addendum entered by Aisha Callejas 12/16/24 15:11: SS follow up note; SS contacted [employer] transportation and they informed SS that they are able to transport patient however they will contact SS with ETA. SS will update patient and asaf's nurse. SS sent all clinicals and discharge order to [facility]. Original Note: Rounding: Plan for Debridement with Dr. Thao today possible DC after.
--- NOTE | 2024-12-16 13:55 | ESDS_ITS ---
<Statement entered by Julio Nichols MD - 12/16/24 14:11> I saw and examined the patient, and I agree with current management stated by Dr Emerson MD,PGY1. Plan of care was discussed with the attending physician and resident physician. Disclaimer: Despite multiple revisions, due to the dictation software being used, the document bellow may not be free of grammatical errors including phonetic/typographic errors. However, this does not deter from our commitment to providing health care in the patient's best interest in mind. Dr. Simone MD, PGY 2 Planned Discharge Date 12/16/24 DS: Providers Provider Date of admission: 11/22/24 00:48 Primary care physician: Corazon Hermosillo MD Admitting Provider: Marin Burris MD Attending Provider on Admission: Troy Magaña MD Consults: 11/22/24 01:02 Consult to Gastroenterology Stat Comment: Intractable Diarrhea for 1 week Consulting Provider: Yanna Palacios 11/22/24 01:51 Consult to Infectious Diseases Routine Comment: Intractable Diarrhea Consulting Provider: Tamir Forte 11/22/24 20:52 Consult to General Surgery Stat Comment: Consulting Provider: Varsha Thao 11/25/24 11:09 Referral Wound Care Routine Comment: 11/25/24 11:10 Referral Nutritional Services Routine Comment: Referral Speech Therapy Stat Comment: 11/25/24 11:17 Referral Physical Therapy Urgent Comment: Physician Instructions: 11/26/24 12:34 Referral OP Wound Healing Dept Routine Comment: Instructions: Midline abdomen, exploratory lap gastric perf with mesh. 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 Patient complains of profuse watery diarrhea of 1 week duration. She also noted associated symptoms of generalized weakness, fatigue, loss of appetite, abdominal pain during this time. Her symptoms progressively worsened until the day of presentation. She denied any fever, vomiting or recent street food. Also denies any sick contacts. On 11/16/2024 patient presented to her PCP who diagnosed her with pneumonia and prescribed her a 5-day course of azithromycin p.o. and prednisone 40 Mg p.o. daily x 5 days, completed on 11/20/2024. Chest x-ray significant for mild RUL consolidation and bibasilar bronchiectasis. No signs of pulmonary edema or pleural effusion. In the ED patient received 4L normal saline IVF bolus, azithromycin and ceftriaxone IV x 1. Patient was admitted to telemetry for intractable diarrhea. Patient blood pressure dropped with MAP in the 50's. Patient was started on Levophed and ICU was consuted for admission, patient was admitted to ICU for septic shock. A central line was placed for pressor administration. Patient found to have bowel perforation, surgical repair of gastrojejunostomy with drain placement on 11/23. Open abdomen with wound VAC in place. Patient successfully extubated 11/25. Patient weaned off pressors. Patient downgraded to floors for further management. During this time, patient developed new fevers and worsening leukocytosis, CT showed abdominal abscesses. Patient was treated prep with a full course of Zosyn. Additional drain was placed for subphrenic abscess. Patient was monitored, showed improvement, did have notable deconditioning. Follow-up CT showed significant improvement in abdominal abscesses. Patient was taken for wound debridement, drains were removed. Per surgery, patient stable for discharge to SNF for rehabilitation and wound VAC management. Patient medically clear and stable for discharge. Discharge plan: 1) Follow up with Dr. Thao in 2 weeks, call [phone] to schedule appointmen t 2) Follow up at [facility], call [phone] for appointment after discharged from Rehab 3) Wound care to abdomen: cleanse with normal saline, pat dry, fill wound with black foam. Drape than track pad at 125mmg continuous suction. Change Mon, Wed and Fri and as needed for falling off. If unable to keep dressing on wash hands and remove all old dressing/foam pieces. Cleanse well with normal saline and pat dry with gauze. Wash hands again. Moistened dry gauze lightly with normal saline and pack wound. Cover with dry gauze and secure with tape. Change once a day until wound vac can be reapplied Diagnoses: #Perforated gastrojejunostomy s/p repair, Gerson patch, washout, drain placement #subphrenic and pelvic abscess formation s/p CT- guided drain #Pseudomonas PNA, treatment completed #Anxiety #Hx of hypertension. #Hx of rheumatoid arthritis. #Normocytic anemia. #Hx of hypothyroidism. Plan of care discussed with senior resident Dr. Nichols PGY?[address]. Marcus Norman MD PGY-1 Time Spent with Patient Time attestation: Total time spent providing and/or coordinating discharge services: Exam Vital Signs Temp Pulse Resp BP Pulse Ox O2 Del Method O2 Flow Rate 97.3 F 120 H 18 96/70 100 Room Air 2 12/16/24 12:00 12/16/24 12:00 12/16/24 12:00 12/16/24 12:12/16/24 12:00 12/16/24 12:00 12/15/24 16:00 FiO2 21 12/08/24 11:36 Narrative Exam Constitutional: Not in acute distress Head: Normocephalic/Atraumatic Eyes: no conjunctival injection , symmetrical lids. ENMT: Moist Mucous Membranes CVS: RRR, S1 and S2 present, no murmurs, rubs or gallops . RESP: CTAB, no increased work of breathing, no rales, rhonchi or wheezing GI: Soft, nontender, nondistended. Surgical site and drain sites are clean dry and intact. No signs of erythema, swelling or tenderness at drain site. Mild diffuse abdominal tenderness. Skin: Warm to touch, Dry. No rashes or lesions. Neuro: Awake and alert Psych: (AAO) x3 . Appropriate mood and affect. Discharge Plan Plan Patient Disposition: Xfer Skilled Nsg Fac (SNF) Patient condition on transfer: Stable Prescriptions/Referrals Prescriptions/Med Rec: New prednisone 5 mg Tablet 5 mg PO QAM 5 Days Qty: 5 0RF hydrocodone-acetaminophen 5-325 mg tablet 1 tab PO BID MDD 2 PRN (Reason: pain) Qty: 10 0RF levothyroxine 125 mcg Tablet 125 mcg PO ACBR 30 Days Qty: 30 0RF lidocaine 5 % Adhesive Patch,Medicated 1 patch top UD PRN (Reason: Pain) 10 Days Qty: 10 0RF pantoprazole 40 mg Tablet,Delayed Release (Dr/Ec) 40 mg PO BID 14 Days Qty: 28 0RF alum-mag hydroxide-simeth [Mag-Al Plus] 200-200-20 mg/5 mL Suspension 30 ml PO Q4HR PRN (Reason: Upset Stomach/Indigestion) Qty: 3000 0RF propranolol 10 mg Tablet 10 mg PO TID Qty: 30 0RF Continued montelukast [Singulair] 10 MG tablet 1 tab PO QDAY Qty: 0 albuterol sulfate 90 mcg/actuation HFA aerosol inhaler 2 inh INHALATION Q4H PRN (Reason: Wheezing) Patient Comments: TAKE 2 PUFFS BY MOUTH EVERY 4 HOURS NEEDED zolpidem [Ambien CR] 12.5 mg Tablet,Ext Release Multiphase 12.5 mg PO HS methocarbamol 750 mg tablet 750 mg PO Q8H PRN (Reason: Muscle Pain) Patient Comments: TAKE 1 TABLET BY MOUTH EVERY 8 HOURS NEEDED 15 DAYS gabapentin 300 mg capsule 300 mg PO TID Held Rinvoq 15 mg tablet extended release 24 hr 15 mg PO QDAY Hold Instructions: Resume on 11/30/24. Hold until you see your PCP Discontinued Prempro 0.625-5 mg tablet 1 tab PO QDAY levothyroxine [Synthroid] 100 MCG tablet 132 mcg PO ACBR Qty: 0 prednisone 10 mg tablet 10 mg PO QDAY Patient Comments: TAKE 1 TABLET BY MOUTH EVERY DAY lisinopril 20 mg Tablet 20 mg PO QDAY Referrals: Varsha Thao MD [Physician] - Corazon Hermosillo MD [Primary Care Provider] - Patient/Caregiver Discharge Instructions Discharge Activity: as per physical therapy Other Discharge Activity Instructions:: 1) Follow up with Dr. Thao in 2 weeks, call [phone] to schedule appointment 2) Follow up at [facility], call [phone] for appointment after discharged from Rehab 3) Wound care to abdomen: cleanse with normal saline, pat dry, fill wound with black foam. Drape than track pad at 125mmg continuous suction. Change Mon, Wed and Fri and as needed for falling off. If unable to keep dressing on wash hands and remove all old dressing/foam pieces. Cleanse well with normal saline and pat dry with gauze. Wash hands again. Moistened dry gauze lightly with normal saline and pack wound. Cover with dry gauze and secure with tape. Change once a day until wound vac can be reapplied Education Materials: Peptic Ulcer, Nutrition for Wound Healing, Discharge Instructions- Eating ..., Changing Dressing Dc, Discharge Instructions Wound ..., Preventing Surgical Site Infections, Negative Pressure Wound Therapy, Understanding Perforated Ulcers Print Language: Mongolian Stand Alone Forms: Brenda Award Info., Patient Portal Info Letter Discharge Order Discharge Orders: Discharge (Routine); Ordered 12/16/24 Ordered By: Marcus Norman Quality Discharge Quality Measures VTE prophylaxis Attestestation MD Attestation I attest that I was physically present for the evaluation, physical examination, lab and imaging review of the patient with the residents. I discussed the case with the residents and agree with the findings and plans of care as documented above. At bedside today, patient states she is feeling well and does not have new complaints. Has been able to tolerate her diet well. She had her drains removed today with general surgery. Vital signs and lab results continue to be stable. Patient has already completed her antibiotic course. We will discharge patient to a SNF, recommended to continue wound care, follow-up with PCP and general surgery in 1 to 2 weeks of discharge. Brandee Edwards MD
== END 2024-12-16 16:30 | disposition skilled nursing facility (03) | DRG 853 ==
LOC: SERX 22:45 → SERHOLD 11-22 01:04 → S2SX 11-22 05:11 → S3SX 11-26 15:16
PROVIDERS: Internal Medicine Infectious Disease; Radiology Diagnostic Radiology; Specialist; Student in an Organized Health Care Education/Training Program; Surgery; Admitting Provider Student in an Organized Health Care Education/Training Program; Emergency Provider Emergency Medicine; PCP Family Medicine; Visit Provider Student in an Organized Health Care Education/Training Program
PROC: 0DQ70ZZ Repair Stomach, Pylorus, Open Approach (ICD-10-PCS; CPT 49000; principal; 2024-11-23 09:30)
DX: A41.9 Sepsis, unspecified organism (principal); J15.1 Pneumonia due to Pseudomonas; R65.21 Severe sepsis with septic shock; K65.1 Peritoneal abscess; K63.1 Perforation of intestine (nontraumatic); N17.9 Acute kidney failure, unspecified; E87.20 Acidosis, unspecified; E87.1 Hypo-osmolality and hyponatremia; D68.9 Coagulation defect, unspecified; M06.9 Rheumatoid arthritis, unspecified; E03.9 Hypothyroidism, unspecified; Z98.84 Bariatric surgery status; I10 Essential (primary) hypertension; J30.2 Other seasonal allergic rhinitis; Z79.52 Long term (current) use of systemic steroids; E87.5 Hyperkalemia; E83.51 Hypocalcemia; E83.39 Other disorders of phosphorus metabolism; N73.9 Female pelvic inflammatory disease, unspecified; D64.9 Anemia, unspecified; Z79.890 Hormone replacement therapy; Z78.0 Asymptomatic menopausal state; F41.9 Anxiety disorder, unspecified; D69.6 Thrombocytopenia, unspecified; E87.6 Hypokalemia
CPT/HCPCS: 36415; 36600; 71045; 71260; 74018; 74176; 74177; 75989; 80048; 80053; 80061; 80069; 80074; 80202; 81001; 82803; 83605; 83615; 83690; 83735; 83880; 83993; 84100; 84145; 84439; 84443; 84484; 84550; 85007; 85014; 85018; 85025; 85027; 85379; 85384; 85610; 85652; 85730; 86021; 86036; 86140; 86403; 86703; 86850; 86900; 86901; 87015; 87040; 87045; 87046; 87070; 87075; 87077; 87081; 87086; 87177; 87186; 87205; 87209; 87329; 87338; 87449; 87493; 87502; 87634; 87811; 87899; 92526; 92610; 93005; 94002; 94003; 94640; 94664; 96361; 96365; 96367; 96375; 97162; 99291; A4217; A4649; A9270; C1729; J0131; J0456; J0612; J0694; J0696; J0744; J1450; J1643; J1720; J2060; J2247; J2250; J2270; J2405; J2470; J2543; J2598; J2704; J2919; J2997; J3010; J3370; J3371; J3475; J3490; J7030; J7040; J7050; J7070; J7120; J7512; J7999; P9045; Q9967; C1725; J1836

== ENCOUNTER 2024-12-28 15:02 | Outpatient (AMB) | payer BC, SELFPAY ==
[2024-12-28 15:27] VITALS: BP 122/76; PULSE 129; RESP 18; TEMP 35.5; O2SAT 93; BMI 32.1
--- NOTE | 2024-12-28 15:27 | GSCOFFNT_ITS ---
Vital Signs - [facility] 12/28/24 15:27 Height 1.65 m Height Method Stated Weight 87.543 kg Weight Measurement Method Standing Scale BMI 32.1 BP 122/76 Blood Pressure Source Automatic Cuff Blood Pressure Location Left Upper Arm Position Sitting Respiration 18 Pulse 129 H Pulse Source Monitor Temp 95.9 F L Temp Source Temporal Artery Scan Pulse Oximetry (%) 93 L Oxygen Delivery Method Room Air Med/Allergies Allergies & Medications Allergies sulfamethoxazole Allergy (Unknown, Verified 12/28/24 15:28) SERUM SICKNESS trimethoprim Allergy (Unknown, Verified 12/28/24 15:28) SERUM SICKNESS Medication Reconciliation montelukast 10 mg tablet (Singulair) 1 tab PO QDAY ##0 05/10/17 [History Confirmed 12/28/24] albuterol sulfate 90 mcg/actuation aerosol inhaler 2 inh inhalation Q4H PRN Wheezing 08/07/23 [History Confirmed 12/28/24] gabapentin 300 mg capsule 300 mg PO TID 11/22/24 [History Confirmed 12/28/24] methocarbamol 750 mg tablet 750 mg PO Q8H PRN Muscle Pain 11/22/24 [History Confirmed 12/28/24] upadacitinib 15 mg tablet,extended release 24 hr (Rinvoq) 15 mg PO QDAY 11/22/24 [History Confirmed 12/28/24] Held on 11/30/24. Instructions: Resume on 11/30/24. Hold until you see your PCP zolpidem 12.5 mg tablet,extended release,multiphase (Ambien CR) 12.5 mg PO HS 11/22/24 [History Confirmed 12/28/24] aluminum-mag hydroxide-simethicone 200 mg-200 mg-20 mg/5 mL oral susp (Mag-Al Plus) 30 ml PO Q4HR PRN Upset Stomach/Indigestion #3,000 mL 11/30/24 [Rx Confirmed 12/28/24] hydrocodone 5 mg-acetaminophen 325 mg tablet 1 tab PO BID PRN pain #10 tabs 11/30/24 [Rx Confirmed 12/28/24] levothyroxine 125 mcg tablet 125 mcg PO ACBR 30 days #30 tabs 11/30/24 [Rx Confirmed 12/28/24] propranolol 10 mg tablet 10 mg PO TID #30 tabs 12/15/24 [Rx Confirmed 12/28/24] benzonatate 150 mg capsule 150 mg PO Q6H #90 caps 12/28/24 [Rx] MA Intake Visit Data Collection New Patient or Established: Established Patient (seen at [facility] within 3 years) Seen by Clinical Staff ONLY (RN/WILMER): No Reason for Visit:: RENAL F/U Pain Present Currently: Yes Pain Location: Unable to identify Pain scale:: 7 Clinical Informatics Spec Required: No PCP or OBGYN visit in last 3 months: Yes Hx Now: No Do You Feel Safe at Home: Yes Authorities Contacted: N/A Smoking Status Smoking Status: Never smoker Immunization / Flu Flu Vaccine in the Last 12 Months: No Flu Vaccine Exclusion Criteria: No Exclusion Criteria Past Medical History Past Medical History NEUROLOGIC: Negative Neurological Disorders or Seizures CARDIAC: Positive Cardiac Disorders and Hypertension; Negative Congestive Heart Failure RESPIRATORY: Positive Asthma; Negative Chronic Obstructive Pulmonary Disease (COPD) GASTROINTESTINAL: Positive Gastrointestinal Disorders, Ulcer and Obesity; Negative Hepatitis or Colorectal Cancer GENITOURINARY: Positive Genitourinary Disorders and Kidney Stones; Negative Renal Disease REPRODUCTIVE: Positive Endometriosis; Negative Breast Cancer MUSCULOSKELETAL: Positive Rheumatoid Arthritis; Negative Bone Cancer ENT: Positive Ear Infection ENDOCRINE: Positive Endocrine Disorders, Hypoglycemia, Hyperthyroidism and Hypothyroidism; Negative Diabetes Mellitus Type 1 or Diabetes Mellitus Type 2 HEMATOLOGIC: Positive Blood Disorders and Anemia; Negative Sickle Cell Disease PSYCHO/SOCIAL: Positive Depression and Anxiety OTHER HISTORY: Positive Falls and Chicken Pox; Negative Blood Transfusions, Blood Transfusion Reaction, Anesthesia Reactions, Organ Transplant, MRSA, VRSA, Vancomycin-Resistant Enterococci, Breast Cancer, Cervical Cancer, Colorectal Cancer, Lung Cancer or Ovarian Cancer Family History FAMILY HISTORY: Positive Family Cardiac Disorders, Family Surgery and Family Anesthesia Reaction; Negative Family Psychiatric Problems, Family Respiratory Disorders, Family Gastrointestinal Problems or Family Cancer Surgical History SURGICAL: Positive Gastric Bypass Surgery; Negative Cardiac Surgery, Endocrine Surgery, Ear Surgery, Nephrectomy, Joint Replacement, Neurologic Surgery, Mastectomy, Tubal Ligation or Organ Transplant Social History SMOKING STATUS: Smoking status: Never smoker ALCOHOL: Alcohol Intake: Never HOUSING: Housing: House LIVES WITH: Lives With: Spouse HPI HPI Narrative 54F with RA chronically on prednisone, remote history of gastric bypass who initially presented with diarrhea, with subsequent findings of pneumoperitoneum on CT now s/p emergent laparotomy with repair of perforated gastrojejunostomy, washout and drain placement 11/23, hospital course complicated by abdominal abscesses requiring percutaneous drain placement, all drains removed before pt was discharged 1/29/25 now here for planned follow up. Pt reports feeling well overall, her pain is fairly controlled and she denies any nausea/vomiting, is tolerating diet and gradually improving her physical activity. She has the wound vac on which is being changed MW. Pt has noted a persistent dry cough, underwent CXR after dc which was negative for any acute findings ROS Review of Systems Systems Reviewed: All systems reviewed, normal except as documented Objective/Exam General General Appearance: alert, cooperative and well groomed Resp Respiratory exam: Absent respiratory distress Abdominal Abdominal exam: Present soft and incision (midline wound with beefy red granulation tissue, some fibrinous tissue superiorly, no erythema, no fluctuance or drainage); Absent distention or tenderness Assessment & Plan Diagnosis / Problem List (1) Gastric perforation: Status: Acute Assessment & Plan: 54F with RA chronically on prednisone, remote history of gastric bypass who initially presented with diarrhea, with subsequent findings of pneumoperitoneum on CT now s/p emergent laparotomy with repair of perforated gastrojejunostomy, washout and drain placement 11/23, gradually recovering Plan: Continue wound vac for now Will follow up in 2 weeks Office Procedures GNS Level of Care Nursing/Assessment Patient Status: Established Patient Nursing Assessment/Reassesment: Medication Reconciliation, Update PMH in EMR and Vital Signs Coordination of Care: Complex Care and Chronic Disease 1-5, Consent,records obtained, informed consent, Education Simp Pt/Fam and Staff clarify orders Established Patient Charge Established Patient Point Assignment: 85 Established Patient Point Charge: EP Level 3 (80-115) Patient Portal Questionaires Social History Living Situation History Housing: House Housing Other:: Spouse Tobacco History Smoking Status: Never smoker Alcohol History Alcohol Intake: Never Domestic Abuse History Do You Feel Safe at Home: Yes Review of Systems Report any current symptoms Only answer those that you have currently: Past Medical History Past Medical History Have you ever been diagnosed with any of the following: Neurological Problems Seizures: No Cardiology Problems Congestive Heart Failure: No Hypertension: Yes Respiratory Problems Chronic Obstructive Pulmonary Disease (COPD): No Asthma: Yes Stomache/Intestinal Problems Hepatitis: No Ulcer: Yes Colorectal Cancer: No Obesity: Yes Genital/Urinary Problems Renal Disease: No Kidney Stones: Yes Reproductive Problems Breast Cancer: No Endometriosis: Yes Musculoskeletal Problems Bone Cancer: No Rheumatoid Arthritis: Yes Head,Eye,Nose,Throat Problems Chronic Ear Infections: Yes Endocrine Problems Diabetes Mellitus Type 1: No Diabetes Mellitus Type 2: No Hypoglycemia: Yes Hyperthyroidism: Yes Hypothyroidism: Yes Blood Problems Anemia: Yes Sickle Cell Disease: No Psychologic Problems Depression: Yes Anxiety: Yes Other Problems Falls: Yes Blood Transfusions: No Blood Transfusion Reaction: No Anesthesia Reactions: No Organ Transplant: No MRSA: No VRSA: No Vancomycin-Resistant Enterococci: No Chicken Pox: Yes Cervical Cancer: No Lung Cancer: No Ovarian Cancer: No
== END 2024-12-28 16:02 | disposition home or self-care (01) ==
PROVIDERS: PCP Family Medicine; Referring Provider Family Medicine; Supervising Provider Surgery; Visit Provider Surgery
DX: Z48.815 Encounter for surgical aftercare following surgery on the digestive system (principal); L92.9 Granulomatous disorder of the skin and subcutaneous tissue, unspecified
CPT/HCPCS: 99213; G0463

== ENCOUNTER 2025-01-11 15:11 | Outpatient (AMB) | payer BC, SELFPAY ==
[2025-01-11 15:20] VITALS: BP 113/84; PULSE 134; RESP 19; TEMP 35.6; O2SAT 98
--- NOTE | 2025-01-11 15:20 | GSCOFFNT_ITS ---
Vital Signs - [facility] 01/11/25 15:20 Height 1.65 m Height Method Stated Weight 81.873 kg Weight Measurement Method Estimated by Patient BMI 30.0 BP 113/84 Blood Pressure Source Automatic Cuff Blood Pressure Location Right Lower Arm Position Sitting Respiration 19 Pulse 134 H Pulse Source Monitor Temp 96.1 F L Temp Source Temporal Artery Scan Pulse Oximetry (%) 98 Oxygen Delivery Method Room Air Med/Allergies Allergies & Medications Allergies sulfamethoxazole Allergy (Unknown, Verified 01/11/25 15:25) SERUM SICKNESS trimethoprim Allergy (Unknown, Verified 01/11/25 15:25) SERUM SICKNESS Medication Reconciliation montelukast 10 mg tablet (Singulair) 1 tab PO QDAY ##0 05/10/17 [History Confirmed 01/11/25] albuterol sulfate 90 mcg/actuation aerosol inhaler 2 inh inhalation Q4H PRN Wheezing 08/07/23 [History Confirmed 01/11/25] gabapentin 300 mg capsule 300 mg PO TID 11/22/24 [History Confirmed 01/11/25] methocarbamol 750 mg tablet 750 mg PO Q8H PRN Muscle Pain 11/22/24 [History Confirmed 01/11/25] upadacitinib 15 mg tablet,extended release 24 hr (Rinvoq) 15 mg PO QDAY 11/22/24 [History Confirmed 01/11/25] Held on 11/30/24. Instructions: Resume on 11/30/24. Hold until you see your PCP zolpidem 12.5 mg tablet,extended release,multiphase (Ambien CR) 12.5 mg PO HS 11/22/24 [History Confirmed 01/11/25] aluminum-mag hydroxide-simethicone 200 mg-200 mg-20 mg/5 mL oral susp (Mag-Al Plus) 30 ml PO Q4HR PRN Upset Stomach/Indigestion #3,000 mL 11/30/24 [Rx Confirmed 01/11/25] hydrocodone 5 mg-acetaminophen 325 mg tablet 1 tab PO BID PRN pain #10 tabs 11/30/24 [Rx Confirmed 01/11/25] propranolol 10 mg tablet 10 mg PO TID #30 tabs 12/15/24 [Rx Confirmed 01/11/25] benzonatate 150 mg capsule 150 mg PO Q6H #90 caps 12/28/24 [Rx Confirmed 01/11/25] MA Intake Visit Data Collection New Patient or Established: Established Patient (seen at [facility] within 3 years) Seen by Clinical Staff ONLY (RN/MA): No Reason for Visit:: FOLLOW UP Pain Present Currently: No Rink Rat Required: No PCP or OBGYN visit in last 3 months: Yes Hx Now: No Do You Feel Safe at Home: Yes Authorities Contacted: N/A Smoking Status Smoking Status: Never smoker Immunization / Flu Flu Vaccine in the Last 12 Months: No Flu Vaccine Exclusion Criteria: No Exclusion Criteria Past Medical History Past Medical History NEUROLOGIC: Negative Neurological Disorders or Seizures CARDIAC: Positive Cardiac Disorders and Hypertension; Negative Congestive Heart Failure RESPIRATORY: Positive Asthma; Negative Chronic Obstructive Pulmonary Disease (COPD) GASTROINTESTINAL: Positive Gastrointestinal Disorders, Ulcer and Obesity; Negative Hepatitis or Colorectal Cancer GENITOURINARY: Positive Genitourinary Disorders and Kidney Stones; Negative Renal Disease REPRODUCTIVE: Positive Endometriosis; Negative Breast Cancer MUSCULOSKELETAL: Positive Rheumatoid Arthritis; Negative Bone Cancer ENT: Positive Ear Infection ENDOCRINE: Positive Endocrine Disorders, Hypoglycemia, Hyperthyroidism and Hypothyroidism; Negative Diabetes Mellitus Type 1 or Diabetes Mellitus Type 2 HEMATOLOGIC: Positive Blood Disorders and Anemia; Negative Sickle Cell Disease PSYCHO/SOCIAL: Positive Depression and Anxiety OTHER HISTORY: Positive Falls and Chicken Pox; Negative Blood Transfusions, Blood Transfusion Reaction, Anesthesia Reactions, Organ Transplant, MRSA, VRSA, Vancomycin-Resistant Enterococci, Breast Cancer, Cervical Cancer, Colorectal Cancer, Lung Cancer or Ovarian Cancer Family History FAMILY HISTORY: Positive Family Cardiac Disorders, Family Surgery and Family Anesthesia Reaction; Negative Family Psychiatric Problems, Family Respiratory Disorders, Family Gastrointestinal Problems or Family Cancer Surgical History SURGICAL: Positive Gastric Bypass Surgery; Negative Cardiac Surgery, Endocrine Surgery, Ear Surgery, Nephrectomy, Joint Replacement, Neurologic Surgery, Mastectomy, Tubal Ligation or Organ Transplant Social History SMOKING STATUS: Smoking status: Never smoker ALCOHOL: Alcohol Intake: Never HOUSING: Housing: House LIVES WITH: Lives With: Spouse HPI HPI Narrative 55F with RA chronically on prednisone, remote history of gastric bypass who initially presented with diarrhea, with subsequent findings of pneumoperitoneum on CT now s/p emergent laparotomy with repair of perforated gastrojejunostomy, washout and drain placement 11/23, hospital course complicated by abdominal abscesses requiring percutaneous drain placement, all drains removed before pt was discharged 12/16/24 now here for planned follow up. Patient reports she feels well overall, her pain is controlled and she has very minimal drainage from her wound VAC ROS Review of Systems Systems Reviewed: All systems reviewed, normal except as documented Objective/Exam General General Appearance: alert, cooperative and well groomed Resp Respiratory exam: Absent respiratory distress Abdominal Abdominal exam: Present soft and incision (Midline wound with beefy red granulation tissue, no fluctuance, no surrounding erythema); Absent distention or tenderness Assessment & Plan Diagnosis / Problem List (1) Gastric perforation: Status: Acute Assessment & Plan: 55F with RA chronically on prednisone, remote history of gastric bypass who initially presented with diarrhea, with subsequent findings of pneumoperitoneum on CT now s/p emergent laparotomy with repair of perforated gastrojejunostomy, washout and drain placement 11/23, hospital course complicated by abdominal abscesses requiring percutaneous drain placement, all drains removed before pt was discharged 12/16/24 now here for planned follow up, recovering well Plan: Will remove wound VAC and approximate skin Follow-up in 2 weeks Orders: Orders Lidocaine 1% vial 20ml Today Office Procedures GNS Level of Care Nursing/Assessment Patient Status: Established Patient Nursing Assessment/Reassesment: Medication Reconciliation, Update PMH in EMR and Vital Signs Coordination of Care: Complex Care and Chronic Disease 1-5, Consent,records obtained, informed consent, Education Simp Pt/Fam, Results/Orders obtained and Staff clarify orders Established Patient Charge Established Patient Point Assignment: 90 Established Patient Point Charge: EP Level 3 (80-115) Skin Wound Closure Steri Strip Set up: No Additional comments:: Midline wound cleansed with iodine Subcutaneous tissue infiltrated with 20 cc of 1% lidocaine Skin approximated with vertical mattress sutures using 3-0 nylon Wound covered with gauze and Medipore tape Patient tolerated well Patient Portal Questionaires Social History Living Situation History Housing: House Housing Other:: Spouse Tobacco History Smoking Status: Never smoker Alcohol History Alcohol Intake: Never Domestic Abuse History Do You Feel Safe at Home: Yes Review of Systems Report any current symptoms Only answer those that you have currently: Past Medical History Past Medical History Have you ever been diagnosed with any of the following: Neurological Problems Seizures: No Cardiology Problems Congestive Heart Failure: No Hypertension: Yes Respiratory Problems Chronic Obstructive Pulmonary Disease (COPD): No Asthma: Yes Stomache/Intestinal Problems Hepatitis: No Ulcer: Yes Colorectal Cancer: No Obesity: Yes Genital/Urinary Problems Renal Disease: No Kidney Stones: Yes Reproductive Problems Breast Cancer: No Endometriosis: Yes Musculoskeletal Problems Bone Cancer: No Rheumatoid Arthritis: Yes Head,Eye,Nose,Throat Problems Chronic Ear Infections: Yes Endocrine Problems Diabetes Mellitus Type 1: No Diabetes Mellitus Type 2: No Hypoglycemia: Yes Hyperthyroidism: Yes Hypothyroidism: Yes Blood Problems Anemia: Yes Sickle Cell Disease: No Psychologic Problems Depression: Yes Anxiety: Yes Other Problems Falls: Yes Blood Transfusions: No Blood Transfusion Reaction: No Anesthesia Reactions: No Organ Transplant: No MRSA: No VRSA: No Vancomycin-Resistant Enterococci: No Chicken Pox: Yes Cervical Cancer: No Lung Cancer: No Ovarian Cancer: No
== END 2025-01-11 16:02 | disposition home or self-care (01) ==
LOC: HODSRG 15:11
PROVIDERS: PCP Family Medicine; Referring Provider Family Medicine; Supervising Provider Surgery; Visit Provider Surgery
DX: Z48.815 Encounter for surgical aftercare following surgery on the digestive system (principal); L92.8 Other granulomatous disorders of the skin and subcutaneous tissue
CPT/HCPCS: 22999; 99213; 99214; J3490; G0463

== ENCOUNTER 2025-01-17 15:47 | Emergency (ER) | payer BC, SELFPAY ==
[2025-01-17 15:50] VITALS: BP 101/69; PULSE 125; RESP 18; TEMP 36.7; O2SAT 98; BMI 30.7
[2025-01-17 15:58] VITALS: PULSE 120; RESP 18; O2SAT 98
--- NOTE | 2025-01-17 16:32 | XR_ITS ---
Examination: CT cervical spine without contrast 2-D sagittal reconstructions 2-D coronal reconstructions 3-D reconstructions. Exam date and time:January 17, 2025 1658 hrs. Indications: Patient fell today with injury to the neck, neck soreness CTDI:vol (mGy) 8.56 DLP: (mGycm) 180 Technique: Multiple 2 mm axial sections of the cervical spine have been obtained. The coronal and sagittal reconstructions have been obtained. 3-D reconstructions have been obtained. Low dose protocols were performed. One or more of the following dose reduction techniques were used; automated exposure control, adjustment of the mA and/or KV according to patient size, use of iterative reconstruction technique. Findings: Axial sections demonstrate intact base of the skull. C1 exhibit satisfactory relationship to the odontoid. No acute cervical vertebral body fracture seen. Alignment posterior spinous processes satisfactory. Impression: No acute cervical fracture.
--- NOTE | 2025-01-17 16:32 | XR_ITS ---
Examination: CT brain head without contrast. 2-D sagittal coronal reconstructions Date and time of exam:January 17, 2025 1658 hrs. Indications: Headaches dizziness today CTDI: vol (mGy):54.7 DLP: (mGycm):1125 Technique: Multiple CT axial sections of the brain have been obtained, 5 mm slice thickness. Contrast has not been administered. 2-D sagittal, coronal reconstructions have been obtained Low dose protocols were performed. One or more of the following dose reduction techniques were used; automated exposure control, adjustment of the mA and/or KV according to patient size, use of iterative reconstruction technique. Findings: No significant ventricular enlargement. Intra-axial or extra-axial hemorrhage density is not seen. No mass effect or midline shift Basal cisterns are not remarkable. Fourth ventricle is midline. Cranial vault intact. Impression: Negative for acute hemorrhage, mass effect or midline shift Acute sphenoid sinusitis Significant ethmoid left maxillary antral sinusitis
--- NOTE | 2025-01-17 16:39 | PD.EDADULT ---
ED General RME/HPI General Chief complaint: Abdominal Pain Stated complaint: FALL, CAUSING INSICION TO OPEN Time Seen by Provider: 01/17/25 16:28 Arrival date/time: 01/17/25 15:47 CC: Fall, wound dehiscence HPI patient presents to the ER via EMS after falling when transitioning from a lounge in a stand and pivot to a potty chair, the patient states she was helped down by her and it was some point struck the back of her head. Patient denies any loss of consciousness or altered level of consciousness but patient also was stated she felt something tear , and then noticed her recent abdominal surgical site had dehisced. Patient currently denies chest pain shortness of breath or difficulty breathing. No other complaints at this time Related Data Home Medications ?Medication ?Instructions ?Recorded ?Confirmed montelukast 10 mg tablet 1 tab PO QDAY ##0 05/10/17 01/11/25 (Singulair) albuterol sulfate 90 mcg/actuation 2 inh inhalation Q4H PRN Wheezing 08/07/23 01/11/25 aerosol inhaler gabapentin 300 mg capsule 300 mg PO TID 11/22/24 01/11/25 methocarbamol 750 mg tablet 750 mg PO Q8H PRN Muscle Pain 11/22/24 01/11/25 upadacitinib 15 mg tablet,extended 15 mg PO QDAY 11/22/24 01/11/25 release 24 hr (Rinvoq) Held on 11/30/24. Instructions: Resume on 11/30/24. Hold until you see your PCP zolpidem 12.5 mg tablet,extended 12.5 mg PO HS 11/22/24 01/11/25 release,multiphase (Ambien CR) Previous Rx's ?Medication ?Instructions ?Recorded aluminum-mag hydroxide-simethicone 30 ml PO Q4HR PRN Upset 11/30/24 200 mg-200 mg-20 mg/5 mL oral susp Stomach/Indigestion #3,000 mL (Mag-Al Plus) hydrocodone 5 mg-acetaminophen 325 1 tab PO BID PRN pain #10 tabs 11/30/24 mg tablet propranolol 10 mg tablet 10 mg PO TID #30 tabs 12/15/24 benzonatate 150 mg capsule 150 mg PO Q6H #90 caps 12/28/24 Allergies Allergy/AdvReac Type Severity Reaction Status Date / Time sulfamethoxazole Allergy Unknown SERUM Verified 01/11/25 15:25 SICKNESS trimethoprim Allergy Unknown SERUM Verified 01/11/25 15:25 SICKNESS Review of Systems Review of Systems Narrative Review of Systems: GEN: No fever, no chills, no weight loss EYES: No discharge, no visual changes, no pain HEENT: No ear pain, no congestion, no sore throat PULM: No shortness of breath, no cough, no congestion CV: No chest pain, no dyspnea on exertion, no palpitations GI: No nausea, no vomiting, no diarrhea, no pain, no constipation : No frequency, no urgency, no dysuria MUSC/SKEL: No joint pain, no back pain SKIN: No rash PSYCH: No hallucinations, no depression HEME/LYMPH: No easy bleeding or bruising tendencies NEURO: No weakness, no headache Past Medical History Past Medical History NEUROLOGIC: Negative Neurological Disorders or Seizures CARDIAC: Positive Cardiac Disorders and Hypertension; Negative Congestive Heart Failure RESPIRATORY: Positive Respiratory Disorders and Asthma; Negative Chronic Obstructive Pulmonary Disease (COPD) GASTROINTESTINAL: Positive Gastrointestinal Disorders, Ulcer and Obesity; Negative Hepatitis or Colorectal Cancer GENITOURINARY: Positive Genitourinary Disorders and Kidney Stones; Negative Renal Disease REPRODUCTIVE: Positive Endometriosis; Negative Breast Cancer MUSCULOSKELETAL: Positive Musculoskeletal Disorders and Rheumatoid Arthritis; Negative Bone Cancer ENT: Positive Ear Infection ENDOCRINE: Positive Endocrine Disorders, Hypoglycemia, Hyperthyroidism and Hypothyroidism; Negative Diabetes Mellitus Type 1 or Diabetes Mellitus Type 2 HEMATOLOGIC: Positive Blood Disorders and Anemia; Negative Sickle Cell Disease PSYCHO/SOCIAL: Positive Depression and Anxiety OTHER HISTORY: Positive Autoimmune Disease, Falls and Chicken Pox; Negative Blood Transfusions, Blood Transfusion Reaction, Anesthesia Reactions, Organ Transplant, MRSA, VRSA, Vancomycin-Resistant Enterococci, Breast Cancer, Cervical Cancer, Colorectal Cancer, Lung Cancer or Ovarian Cancer Family History FAMILY HISTORY: Positive Family Cardiac Disorders, Family Surgery and Family Anesthesia Reaction; Negative Family Psychiatric Problems, Family Respiratory Disorders, Family Gastrointestinal Problems or Family Cancer Surgical History SURGICAL: Positive Abdominal Surgery and Gastric Bypass Surgery; Negative Cardiac Surgery, Endocrine Surgery, Ear Surgery, Nephrectomy, Joint Replacement, Neurologic Surgery, Mastectomy, Tubal Ligation or Organ Transplant Social History SMOKING STATUS: Never smoker SUBSTANCE USE: does not use ED Exam Narrative Physical exam: [General: Obese, deconditioned, but not in any acute distress Head normocephalic HEENT: Within acceptable limits Neck is supple nontender Chest equal chest rise nontender to palpation Respiratory: Clear to auscultation no wheezes crackles or rubs CV: Rate rhythm is regular no murmurs rubs or clicks Abdomen is distended secondary to body habitus soft nontender no masses positive bowel sounds all 4 quadrants Back: No CVA tenderness no spinous process tenderness from cervical spine thoracic and lumbar spine Skin: Central vertical leg incision, the distal portion of the incision is dehisced, the upper portion has poor approximation. Otherwise skin is intact no petechiae rash induration ulceration or crepitus Extremities: Moving all extremity against resistance cap refill less than 2 seconds neurosensory intact Neuro: Awake alert oriented x3 Glascow coma 15 no focal deficits] Course Course Course Narrative: Dr. Shepherd was consulted regarding this patient and the patient's condition. She states patient on the standpoint of the operative surgical incision dehiscence the patient can be discharged home on a wet-to-dry dressing to follow-up in 8 days. Quality Measures VTE prophylaxis Orders Category Date Time Status CT cervical spine wo con Stat Exams 01/17/25 16:[address] head/brain wo con Stat Exams 01/17/25 16:32 Completed CBC Stat Lab 01/17/25 17:22 Completed CMP [Comprehensive Metabolic Panel] Stat Lab 01/17/25 17:22 Completed HYDROcodone*/APAP 5/325 [[place] 5/325] Med 01/17/25 17:44 Discontinued 1 tab PO X1 ONE Vital Signs Vital signs: Vital Signs Temperature 98.1 F 01/17/25 15:50 Pulse Rate 125 H 01/17/25 15:50 Respiratory Rate 18 01/17/25 15:50 Blood Pressure 101/69 01/17/25 15:50 Pulse Oximetry (%) 98 01/17/25 15:50 Oxygen Delivery Method Room Air 01/17/25 15:50 [facility] Patient data External records reviewed:: [facility] previous records and EMS form Clinical information provided by:: patient and EMS Social determinants that could affect healthcare access:: none Patient has the following chronic illnesses:: Recent abdominal surgery How is presenting disease/condition affected by chronic disease/condition?: exacerbated by Evaluation data The following diagnostics were reviewed and interpreted by me:: lab results and radiology exam(s) Lab and/or radiology exams considered but not ordered:: CT head and C-spine show the patient has acute sinusitis but no other acute finding requires emergent or immediate intervention as interpreted by me read by radiology. Interpretation Summary: Dehiscence of the wound but no head injury Medications Medications considered but not ordered:: None Medication administrations:: Medication Administration History Discontinued Medications Hydrocodone Bitart/Acetaminophen (Hydrocodone/Apap 5/325 Tablet) 1 tab PO X1 ONE Stop: 01/17/25 17:45 Last Admin: 01/17/25 17:47 Dose: 1 tab Documented By: GIULIA None Consultations Consultation(s) initiated? (list below): Yes Diagnosis Differential Diagnosis ED Complaint MDM: Wound dehiscence closed head injury neck fracture Most likely diagnosis given after review of the tests above:: Wound the hand assistance fall Admission Indicated Admission indicated?: not indicated Explain why admission is indicated or not indicated:: Stable for discharge follow-up outpatient Admission Request Was there a request for admission?: No Disposition Plan Disposition Plan: Discharge Discharge Attestation Discharge Attestation: The patient and all family members were given an opportunity to ask questions and understood the discharge instructions. Discharge instructions specifically effects, indications for sooner follow up or return to the emergency department, and the expected course of current diagnosis. Patient condition: Stable Medical Decision Making Differential Diagnosis Differential Diagnosis: Wound dehiscence closed head injury neck fracture Lab Data 01/17/25 17:22 01/17/25 17:22 Labs: Lab Results 01/17/25 Range/Units 17:22 WBC 11.8 H (3.6-11.0) Thou/mm3 RBC 3.70 L (4.00-5.20) Miln/mm3 Hgb 10.0 L (12.0-16.0) g/dL Hct 34.6 L (36.0-46.0) % MCV 94 (80-100) fL MCH 27.0 (25.0-35.0) pg MCHC 28.9 L (31.0-37.0) g/dl RDW Std Deviation 58.9 H (36.4-46.3) fL Plt Count 496 H D (140-440) Thou/mm3 Neut % (Auto) 80 (37-80) % Lymph % (Auto) 13 (10-50) % [place] % (Auto) 5 (0-12) % Eos % (Auto) 1 (0-10) % Baso % (Auto) 0 (0-2.5) % Neut # (Auto) 9.4 H (1.8-7.7) Thou/mm3 Lymph # (Auto) 1.6 (1.0-4.8) Thou/mm3 [place] # (Auto) 0.6 (0.0-0.8) Thou/mm3 Eos # (Auto) 0.1 (0.0-0.5) Thou/mm3 Baso # (Auto) 0.0 (0.0-0.2) Thou/mm3 Immature Gran # (Auto) 0.09 H (0.00-0.00) Thou/mm3 Absolute Nucleated RBC 0.00 (0.00-0.00) Thou/mm3 Immature Gran % 1 H (0-0) % Nucleated RBC % 0 (0) /100 WBC Sodium 136 (136-145) mMol/L Potassium 4.1 (3.4-5.1) mMol/L Chloride 102 (98-107) mMol/L Carbon Dioxide 23.1 (20.0-31.0) mMol/L Anion Gap 11 (7-16) BUN 14 (9-23) mg/dL Creatinine 0.9 (0.6-1.3) mg/dL Estim Creat Clear Calc 75.6 (>60) mL/min eGFR > 60 (60 - ) See Note BUN/Creatinine Ratio 16 (12-20) Ratio Glucose 118 H (74-106) mg/dL Calculated Osmolality 273 L (275-295) Calcium 8.7 (8.3-10.6) mg/dL Corrected Calcium 9.4 (8.5-10.1) mg/dL Total Bilirubin 0.3 (0.3-1.2) mg/dL AST 20 (0-34) U/L ALT 15 (10-49) U/L Alkaline Phosphatase 142 H (46-116) U/L Total Protein 6.2 (5.7-8.2) gm/dL Albumin 3.1 L (3.5-5.0) gm/dL Globulin 3.1 (2.3-3.5) gm/dL Albumin/Globulin Ratio 1.0 L (1.2-2.2) Discharge Plan Plan Patient Disposition: HOME (Self Care) Patient condition on transfer: Stable Prescriptions/Referrals Prescriptions/Med Rec: No Action benzonatate 150 mg capsule 150 mg PO Q6H Qty: 90 1RF montelukast [Singulair] 10 MG tablet 1 tab PO QDAY Qty: 0 albuterol sulfate 90 mcg/actuation HFA aerosol inhaler 2 inh INHALATION Q4H PRN (Reason: Wheezing) Patient Comments: TAKE 2 PUFFS BY MOUTH EVERY 4 HOURS NEEDED zolpidem [Ambien CR] 12.5 mg Tablet,Ext Release Multiphase 12.5 mg PO HS Rinvoq 15 mg tablet extended release 24 hr 15 mg PO QDAY methocarbamol 750 mg tablet 750 mg PO Q8H PRN (Reason: Muscle Pain) Patient Comments: TAKE 1 TABLET BY MOUTH EVERY 8 HOURS NEEDED 15 DAYS gabapentin 300 mg capsule 300 mg PO TID hydrocodone-acetaminophen 5-325 mg tablet 1 tab PO BID MDD 2 PRN (Reason: pain) Qty: 10 0RF alum-mag hydroxide-simeth [Mag-Al Plus] 200-200-20 mg/5 mL Suspension 30 ml PO Q4HR PRN (Reason: Upset Stomach/Indigestion) Qty: 3000 0RF propranolol 10 mg Tablet 10 mg PO TID Qty: 30 0RF Referrals: Corazon Hermosillo MD [Primary Care Provider] - In 1 week Problem List Clinical Impression: Fall, Abdominal wall dehiscence Patient/Caregiver Discharge Instructions Education Materials: Preventing Falls Moving Safely ... Additional Instructions: Please change to wet-to-dry dressing every day on the surgical site until seen by Dr. Shepherd on January 25. If there is a worsening of symptoms include redness pus or fever return the emergency room for reevaluation. Print Language: Danish Stand Alone Forms: Brenda Award Info., Patient Portal Info Letter PA/VICE PRESIDENT OF PROCUREMENT Supervising Physician PA/VICE PRESIDENT OF PROCUREMENT Supervising Physician: Clark Lopez ENP
[2025-01-17 17:25] VITALS: BP 115/73; PULSE 120; RESP 18; TEMP 36.5; O2SAT 98
[2025-01-17 17:35] LABS: Basophils % (Auto) 0 % (0-2.5); Eosinophils # (Auto) 0.1 Thou/mm3 (0.0-0.5); Eosinophils % (Auto) 1 % (0-10); Hematocrit 34.6 % (36.0-46.0); Immature Granulocytes % (Auto) 1 % (0-0); Immature Granulocytes Auto 0.09 Thou/mm3 (0.00-0.00); Lymphocytes # (Auto) 1.6 Thou/mm3 (1.0-4.8); Lymphocytes % (Auto) 13 % (10-50); Mean Corpuscular HGB Conc 28.9 g/dl (31.0-37.0); Mean Corpuscular Volume 94 fL (80-100); Monocytes # (Auto) 0.6 Thou/mm3 (0.0-0.8); Monocytes % (Auto) 5 % (0-12); Neutrophils # (Auto) 9.4 Thou/mm3 (1.8-7.7); Neutrophils % (Auto) 80 % (37-80); Nucleated Red Blood Cell % 0 /100 WBC (0); Platelet Count 496 Thou/mm3 (140-440); RDW Standard Deviation 58.9 fL (36.4-46.3); White Blood Count 11.8 Thou/mm3 (3.6-11.0)
[2025-01-17 17:45] LABS: Alanine Aminotransferase 15 U/L (10-49); Albumin, Serum 3.1 gm/dL (3.5-5.0); Alkaline Phosphatase 142 U/L (46-116); Anion Gap 11 (7-16); Aspartate Amino Transferase 20 U/L (0-34); BUN/Creatinine Ratio 16 Ratio (12-20); Bilirubin,Total 0.3 mg/dL (0.3-1.2); Blood Urea Nitrogen 14 mg/dL (9-23); Calcium 8.7 mg/dL (8.3-10.6); Calcium (Corrected) 9.4 mg/dL (8.5-10.1); Carbon Dioxide 23.1 mMol/L (20.0-31.0); Chloride 102 mMol/L (98-107); Creatinine (Component) 0.9 mg/dL (0.6-1.3); Estimated Creatinine Clearance 75.6 mL/min (>60); Globulin 3.1 gm/dL (2.3-3.5); Glucose 118 mg/dL (74-106); Osmolality,Calculated 273 (275-295); Potassium 4.1 mMol/L (3.4-5.1); Sodium 136 mMol/L (136-145); Total Protein 6.2 gm/dL (5.7-8.2); eGFR > 60 See Note
[2025-01-17] MEDS: HYDROcodone/APAP 5/325 TABLET 1 TAB PO (17:47)
[2025-01-17 19:17] VITALS: BP 107/81; PULSE 112; RESP 20; TEMP 36.6; O2SAT 100
== END 2025-01-17 20:16 | disposition home or self-care (01) ==
PROVIDERS: Registered Nurse General Practice; Emergency Provider Emergency Medicine; PCP Family Medicine
DX: T81.31XA Disruption of external operation (surgical) wound, not elsewhere classified, initial encounter (principal); W19.XXXA Unspecified fall, initial encounter; R51.9 Headache, unspecified
CPT/HCPCS: 36415; 70450; 72125; 80053; 85025; 99284; A9270

== ENCOUNTER 2025-01-18 13:56 | Outpatient (AMB) | payer BC, SELFPAY ==
[2025-01-18 14:13] VITALS: BP 111/80; PULSE 136; RESP 18; TEMP 36.4; O2SAT 95; BMI 30.8
--- NOTE | 2025-01-18 14:13 | PD.GSCLVISIT ---
[facility] - [facility] 01/18/25 14:13 Height 1.65 m Height Method Stated Weight 83.915 kg Weight Measurement Method Standing Scale BMI 30.8 BP 111/80 Blood Pressure Source Automatic Cuff Blood Pressure Location Left Upper Arm Position Sitting Respiration 18 Pulse 136 H Pulse Source Monitor Temp 97.5 F Temp Source Temporal Artery Scan Pulse Oximetry (%) 95 Oxygen Delivery Method Room Air Med/Allergies Allergies & Medications Allergies sulfamethoxazole Allergy (Unknown, Verified 01/18/25 14:14) SERUM SICKNESS trimethoprim Allergy (Unknown, Verified 01/18/25 14:14) SERUM SICKNESS Medication Reconciliation montelukast 10 mg tablet (Singulair) 1 tab PO QDAY ##0 05/10/17 [History Confirmed 01/18/25] albuterol sulfate 90 mcg/actuation aerosol inhaler 2 inh inhalation Q4H PRN Wheezing 08/07/23 [History Confirmed 01/18/25] gabapentin 300 mg capsule 300 mg PO TID 11/22/24 [History Confirmed 01/18/25] methocarbamol 750 mg tablet 750 mg PO Q8H PRN Muscle Pain 11/22/24 [History Confirmed 01/18/25] upadacitinib 15 mg tablet,extended release 24 hr (Rinvoq) 15 mg PO QDAY 11/22/24 [History Confirmed 01/18/25] Held on 11/30/24. Instructions: Resume on 11/30/24. Hold until you see your PCP zolpidem 12.5 mg tablet,extended release,multiphase (Ambien CR) 12.5 mg PO HS 11/22/24 [History Confirmed 01/18/25] aluminum-mag hydroxide-simethicone 200 mg-200 mg-20 mg/5 mL oral susp (Mag-Al Plus) 30 ml PO Q4HR PRN Upset Stomach/Indigestion #3,000 mL 11/30/24 [Rx Confirmed 01/18/25] hydrocodone 5 mg-acetaminophen 325 mg tablet 1 tab PO BID PRN pain #10 tabs 11/30/24 [Rx Confirmed 01/18/25] propranolol 10 mg tablet 10 mg PO TID #30 tabs 12/15/24 [Rx Confirmed 01/18/25] benzonatate 150 mg capsule 150 mg PO Q6H #90 caps 12/28/24 [Rx Confirmed 01/18/25] WILMER Intake Visit Data Collection New Patient or Established: Established Patient (seen at [facility] within 3 years) Seen by Clinical Staff ONLY (RN/MA): No Reason for Visit:: FOLLOW UP Pain Present Currently: No Restaurant Host Required: No PCP or OBGYN visit in last 3 months: Yes Hx Now: No Do You Feel Safe at Home: Yes Authorities Contacted: N/A Smoking Status Smoking Status: Never smoker Immunization / Flu Flu Vaccine in the Last 12 Months: No Flu Vaccine Exclusion Criteria: No Exclusion Criteria Past Medical History Past Medical History NEUROLOGIC: Negative Neurological Disorders or Seizures CARDIAC: Positive Cardiac Disorders and Hypertension; Negative Congestive Heart Failure RESPIRATORY: Positive Asthma; Negative Chronic Obstructive Pulmonary Disease (COPD) GASTROINTESTINAL: Positive Gastrointestinal Disorders, Ulcer and Obesity; Negative Hepatitis or Colorectal Cancer GENITOURINARY: Positive Genitourinary Disorders and Kidney Stones; Negative Renal Disease REPRODUCTIVE: Positive Endometriosis; Negative Breast Cancer MUSCULOSKELETAL: Positive Rheumatoid Arthritis; Negative Bone Cancer ENT: Positive Ear Infection ENDOCRINE: Positive Endocrine Disorders, Hypoglycemia, Hyperthyroidism and Hypothyroidism; Negative Diabetes Mellitus Type 1 or Diabetes Mellitus Type 2 HEMATOLOGIC: Positive Blood Disorders and Anemia; Negative Sickle Cell Disease PSYCHO/SOCIAL: Positive Depression and Anxiety OTHER HISTORY: Positive Falls and Chicken Pox; Negative Blood Transfusions, Blood Transfusion Reaction, Anesthesia Reactions, Organ Transplant, MRSA, VRSA, Vancomycin-Resistant Enterococci, Breast Cancer, Cervical Cancer, Colorectal Cancer, Lung Cancer or Ovarian Cancer Family History FAMILY HISTORY: Positive Family Cardiac Disorders, Family Surgery and Family Anesthesia Reaction; Negative Family Psychiatric Problems, Family Respiratory Disorders, Family Gastrointestinal Problems or Family Cancer Surgical History SURGICAL: Positive Abdominal Surgery and Gastric Bypass Surgery; Negative Cardiac Surgery, Endocrine Surgery, Ear Surgery, Nephrectomy, Joint Replacement, Neurologic Surgery, Mastectomy, Tubal Ligation or Organ Transplant Social History SMOKING STATUS: Smoking status: Never smoker ALCOHOL: Alcohol Intake: Never HOUSING: Housing: House LIVES WITH: Lives With: Spouse HPI HPI Narrative 55F with RA chronically on prednisone, remote history of gastric bypass, with perforated gastrojejunostomy s/p emergent repair 11/23, course complicated by intraabdominal abscesses here for follow up. Pt went home from [facility] three days ago and has had difficulty managing at home, ultimately falling yesterday prompting a visit to ER. Pt states that when she fell her sutures popped and she has been having severe pain and difficulty eating. Pt has been speaking with CM from [facility] and is planned to return there when authorization is obtained ROS Constitutional Constitutional: Reports system reviewed and no additional complaints, except as documented Objective/Exam General General Appearance: alert, cooperative and well groomed Resp Respiratory exam: Absent respiratory distress Abdominal Abdominal exam: Present soft and other (midline wound with beefy red granulation tissue, no surrounding erythema, no fluctuance or tenderness); Absent distention or tenderness Assessment & Plan Diagnosis / Problem List (1) Abdominal wall dehiscence: Status: Acute Assessment & Plan: 55F with RA chronically on prednisone, remote history of gastric bypass, with perforated gastrojejunostomy s/p emergent repair 11/23, course complicated by intraabdominal abscesses here for follow up. I spoke to [facility] and per CM instructions will write an admission order to give to pt. Her wound is gradually healing with no signs of infection, will recommend wet-dry dressings daily Plan: F/u in 2 weeks Office Procedures GNS Level of Care Nursing/Assessment Patient Status: Established Patient Nursing Assessment/Reassesment: Medication Reconciliation, Update PMH in EMR and Vital Signs Coordination of Care: Complex Care and Chronic Disease 1-5, Consent,records obtained, informed consent, Education Simp Pt/Fam, Results/Orders obtained and Staff clarify orders Established Patient Charge Established Patient Point Assignment: 90 Established Patient Point Charge: EP Level 3 (80-115) Patient Portal Questionaires Social History Living Situation History Housing: House Housing Other:: Spouse Tobacco History Smoking Status: Never smoker Alcohol History Alcohol Intake: Never Domestic Abuse History Do You Feel Safe at Home: Yes Review of Systems Report any current symptoms Only answer those that you have currently: Past Medical History Past Medical History Have you ever been diagnosed with any of the following: Neurological Problems Seizures: No Cardiology Problems Congestive Heart Failure: No Hypertension: Yes Respiratory Problems Chronic Obstructive Pulmonary Disease (COPD): No Asthma: Yes Stomache/Intestinal Problems Hepatitis: No Ulcer: Yes Colorectal Cancer: No Obesity: Yes Genital/Urinary Problems Renal Disease: No Kidney Stones: Yes Reproductive Problems Breast Cancer: No Endometriosis: Yes Musculoskeletal Problems Bone Cancer: No Rheumatoid Arthritis: Yes Head,Eye,Nose,Throat Problems Chronic Ear Infections: Yes Endocrine Problems Diabetes Mellitus Type 1: No Diabetes Mellitus Type 2: No Hypoglycemia: Yes Hyperthyroidism: Yes Hypothyroidism: Yes Blood Problems Anemia: Yes Sickle Cell Disease: No Psychologic Problems Depression: Yes Anxiety: Yes Other Problems Falls: Yes Blood Transfusions: No Blood Transfusion Reaction: No Anesthesia Reactions: No Organ Transplant: No MRSA: No VRSA: No Vancomycin-Resistant Enterococci: No Chicken Pox: Yes Cervical Cancer: No Lung Cancer: No Ovarian Cancer: No
== END 2025-01-18 14:40 | disposition home or self-care (01) ==
LOC: HODSRG 13:56
PROVIDERS: Family Provider Family Medicine; PCP Family Medicine; Referring Provider Family Medicine; Supervising Provider Surgery; Visit Provider Surgery
DX: Z09 Encounter for follow-up examination after completed treatment for conditions other than malignant neoplasm (principal); Z98.84 Bariatric surgery status
CPT/HCPCS: 99213; G0463

== ENCOUNTER 2025-02-01 14:22 | Outpatient (AMB) | payer BC, SELFPAY ==
[2025-02-01 14:42] VITALS: BP 111/81; PULSE 113; RESP 19; TEMP 35.9; O2SAT 97; BMI 29.9
--- NOTE | 2025-02-01 14:42 | PD.GSCLVISIT ---
Vital Signs - [facility] 02/01/25 14:42 Height 1.65 m Height Method Stated Weight 81.647 kg Weight Measurement Method Estimated by Patient BMI 29.9 BP 111/81 Blood Pressure Source Automatic Cuff Blood Pressure Location Right Lower Arm Position Sitting Respiration 19 Pulse 113 H Pulse Source Monitor Temp 96.6 F L Temp Source Temporal Artery Scan Pulse Oximetry (%) 97 Oxygen Delivery Method Room Air Med/Allergies Allergies & Medications Allergies sulfamethoxazole Allergy (Unknown, Verified 02/01/25 14:43) SERUM SICKNESS trimethoprim Allergy (Unknown, Verified 02/01/25 14:43) SERUM SICKNESS Medication Reconciliation montelukast 10 mg tablet (Singulair) 1 tab PO QDAY ##0 05/10/17 [History Confirmed 02/01/25] albuterol sulfate 90 mcg/actuation aerosol inhaler 2 inh inhalation Q4H PRN Wheezing 08/07/23 [History Confirmed 02/01/25] gabapentin 300 mg capsule 300 mg PO TID 11/22/24 [History Confirmed 02/01/25] methocarbamol 750 mg tablet 750 mg PO Q8H PRN Muscle Pain 11/22/24 [History Confirmed 02/01/25] upadacitinib 15 mg tablet,extended release 24 hr (Rinvoq) 15 mg PO QDAY 11/22/24 [History Confirmed 02/01/25] Held on 11/30/24. Instructions: Resume on 11/30/24. Hold until you see your PCP zolpidem 12.5 mg tablet,extended release,multiphase (Ambien CR) 12.5 mg PO HS 11/22/24 [History Confirmed 02/01/25] aluminum-mag hydroxide-simethicone 200 mg-200 mg-20 mg/5 mL oral susp (Mag-Al Plus) 30 ml PO Q4HR PRN Upset Stomach/Indigestion #3,000 mL 11/30/24 [Rx Confirmed 02/01/25] hydrocodone 5 mg-acetaminophen 325 mg tablet 1 tab PO BID PRN pain #10 tabs 11/30/24 [Rx Confirmed 02/01/25] propranolol 10 mg tablet 10 mg PO TID #30 tabs 12/15/24 [Rx Confirmed 02/01/25] benzonatate 150 mg capsule 150 mg PO Q6H #90 caps 12/28/24 [Rx Confirmed 02/01/25] MA Intake Visit Data Collection New Patient or Established: Established Patient (seen at [facility] within 3 years) Seen by Clinical Staff ONLY (RN/MA): No Reason for Visit:: FOLLOW UP Pain Present Currently: No Research Coordinator Required: No PCP or OBGYN visit in last 3 months: Yes Hx Now: No Do You Feel Safe at Home: Yes Authorities Contacted: N/A Smoking Status Smoking Status: Never smoker Immunization / Flu Flu Vaccine in the Last 12 Months: No Flu Vaccine Exclusion Criteria: No Exclusion Criteria Past Medical History Past Medical History NEUROLOGIC: Negative Neurological Disorders or Seizures CARDIAC: Positive Cardiac Disorders and Hypertension; Negative Congestive Heart Failure RESPIRATORY: Positive Asthma; Negative Chronic Obstructive Pulmonary Disease (COPD) GASTROINTESTINAL: Positive Gastrointestinal Disorders, Ulcer and Obesity; Negative Hepatitis or Colorectal Cancer GENITOURINARY: Positive Genitourinary Disorders and Kidney Stones; Negative Renal Disease REPRODUCTIVE: Positive Endometriosis; Negative Breast Cancer MUSCULOSKELETAL: Positive Rheumatoid Arthritis; Negative Bone Cancer ENT: Positive Ear Infection ENDOCRINE: Positive Endocrine Disorders, Hypoglycemia, Hyperthyroidism and Hypothyroidism; Negative Diabetes Mellitus Type 1 or Diabetes Mellitus Type 2 HEMATOLOGIC: Positive Blood Disorders and Anemia; Negative Sickle Cell Disease PSYCHO/SOCIAL: Positive Depression and Anxiety OTHER HISTORY: Positive Falls and Chicken Pox; Negative Blood Transfusions, Blood Transfusion Reaction, Anesthesia Reactions, Organ Transplant, MRSA, VRSA, Vancomycin-Resistant Enterococci, Breast Cancer, Cervical Cancer, Colorectal Cancer, Lung Cancer or Ovarian Cancer Family History FAMILY HISTORY: Positive Family Cardiac Disorders, Family Surgery and Family Anesthesia Reaction; Negative Family Psychiatric Problems, Family Respiratory Disorders, Family Gastrointestinal Problems or Family Cancer Surgical History SURGICAL: Positive Abdominal Surgery and Gastric Bypass Surgery; Negative Cardiac Surgery, Endocrine Surgery, Ear Surgery, Nephrectomy, Joint Replacement, Neurologic Surgery, Mastectomy, Tubal Ligation or Organ Transplant Social History SMOKING STATUS: Smoking status: Never smoker ALCOHOL: Alcohol Intake: Never HOUSING: Housing: House LIVES WITH: Lives With: Spouse HPI HPI Narrative 55F with RA chronically on prednisone, remote history of gastric bypass, with perforated gastrojejunostomy s/p emergent repair 11/23, course complicated by intraabdominal abscesses here for follow up. After last visit pt returned to SNF and is still there, slowing regaining strength with physical therapy. Her pain is controlled and she is eating without any difficulties, having regular BMs ROS Review of Systems Systems Reviewed: All systems reviewed, normal except as documented Objective/Exam General General Appearance: alert, cooperative and well groomed Resp Respiratory exam: Absent respiratory distress Abdominal Abdominal exam: Present soft and other (midline wound with beefy red granulation tissue at base, no surrounding erythema); Absent distention or tenderness Assessment & Plan Diagnosis / Problem List (1) Abdominal wall dehiscence: Status: Inactive Assessment & Plan: 55F with RA chronically on prednisone, remote history of gastric bypass, with perforated gastrojejunostomy s/p emergent repair 11/23, course complicated by intraabdominal abscesses, gradually recovering. Her midline wound appears healthy with no signs of infection but has delayed healing; I spoke to her RN at [facility] about resuming wound vac therapy Plan: F/u in 3 weeks Office Procedures GNS Level of Care Nursing/Assessment Patient Status: Established Patient Nursing Assessment/Reassesment: Medication Reconciliation, Update PMH in EMR and Vital Signs Coordination of Care: Complex Care and Chronic Disease 1-5, Consent,records obtained, informed consent, Education Simp Pt/Fam, Results/Orders obtained and Staff clarify orders Established Patient Charge Established Patient Point Assignment: 90 Established Patient Point Charge: EP Level 3 (80-115) Patient Portal Questionaires Social History Living Situation History Housing: House Housing Other:: Spouse Tobacco History Smoking Status: Never smoker Alcohol History Alcohol Intake: Never Domestic Abuse History Do You Feel Safe at Home: Yes Review of Systems Report any current symptoms Only answer those that you have currently: Past Medical History Past Medical History Have you ever been diagnosed with any of the following: Neurological Problems Seizures: No Cardiology Problems Congestive Heart Failure: No Hypertension: Yes Respiratory Problems Chronic Obstructive Pulmonary Disease (COPD): No Asthma: Yes Stomache/Intestinal Problems Hepatitis: No Ulcer: Yes Colorectal Cancer: No Obesity: Yes Genital/Urinary Problems Renal Disease: No Kidney Stones: Yes Reproductive Problems Breast Cancer: No Endometriosis: Yes Musculoskeletal Problems Bone Cancer: No Rheumatoid Arthritis: Yes Head,Eye,Nose,Throat Problems Chronic Ear Infections: Yes Endocrine Problems Diabetes Mellitus Type 1: No Diabetes Mellitus Type 2: No Hypoglycemia: Yes Hyperthyroidism: Yes Hypothyroidism: Yes Blood Problems Anemia: Yes Sickle Cell Disease: No Psychologic Problems Depression: Yes Anxiety: Yes Other Problems Falls: Yes Blood Transfusions: No Blood Transfusion Reaction: No Anesthesia Reactions: No Organ Transplant: No MRSA: No VRSA: No Vancomycin-Resistant Enterococci: No Chicken Pox: Yes Cervical Cancer: No Lung Cancer: No Ovarian Cancer: No
== END 2025-02-01 15:05 | disposition home or self-care (01) ==
LOC: HODSRG 14:22
PROVIDERS: PCP Family Medicine; Referring Provider Family Medicine; Supervising Provider Surgery; Visit Provider Surgery
DX: T81.321A Disruption or dehiscence of closure of internal operation (surgical) wound of abdominal wall muscle or fascia, initial encounter (principal); M06.9 Rheumatoid arthritis, unspecified; Z98.84 Bariatric surgery status
CPT/HCPCS: 99213; G0463

== ENCOUNTER → 2025-03-17 | Outpatient (CLI) | payer BC, SELFPAY ==
[2025-03-17 15:28] LABS: Collection Type, Urine Clean Catch
[2025-03-17 16:50] LABS: Bilirubin,Urine Negative (Negative); Blood,Urine 1+ (Negative); Clarity,Urine Clear (Clear/Hazy); Color,Urine Lt-Yellow (Lt Yel-Yel); Glucose, Urine Negative (Negative); Ketones,Urine Negative (Negative); Leukocyte Esterase,Urine Positive (Negative); Nitrite,Urine Negative (Negative); PH,Urine 6.5 (5.0-7.0); Protein,Urine Trace (Neg - Trace); RBC,Urine 8 /hpf (0-3); Specific Gravity,Urine 1.018 (1.001-1.035); Squamous Epithelial Cell,Urine 2 /hpf (0-5); Urobilinogen,Urine Negative mg/dL (0.0-1.0); WBC,Urine 88 /hpf (0-5)
== END | disposition home or self-care (01) ==
LOC: SLDO 15:09
PROVIDERS: PCP Family Medicine; Referring Provider Nurse Practitioner Family; Visit Provider Nurse Practitioner Family
DX: N39.0 Urinary tract infection, site not specified (principal)
CPT/HCPCS: 81001; 87077; 87086; 87186

== ENCOUNTER 2025-04-26 10:52 | Outpatient (AMB) | payer BC, SELFPAY ==
[2025-04-26 11:04] VITALS: BP 124/92; PULSE 156; RESP 18; TEMP 36.2; O2SAT 95; BMI 27.1
--- NOTE | 2025-04-26 11:04 | GSCOFFNT_ITS ---
Vital Signs - [facility] 04/26/25 11:04 Height 1.65 m Height Method Stated Weight 74.049 kg Weight Measurement Method Standing Scale BMI 27.1 BP 124/92 H Blood Pressure Source Automatic Cuff Blood Pressure Location Right Upper Arm Position Sitting Respiration 18 Pulse 156 H Pulse Source Monitor Temp 97.1 F Temp Source Temporal Artery Scan Pulse Oximetry (%) 95 Oxygen Delivery Method Room Air Med/Allergies Allergies & Medications Allergies sulfamethoxazole Allergy (Unknown, Verified 04/26/25 11:05) SERUM SICKNESS trimethoprim Allergy (Unknown, Verified 04/26/25 11:05) SERUM SICKNESS Medication Reconciliation montelukast 10 mg tablet (Singulair) 1 tab PO QDAY ##0 05/10/17 [History Confirmed 04/26/25] albuterol sulfate 90 mcg/actuation aerosol inhaler 2 inh inhalation Q4H PRN Wheezing 08/07/23 [History Confirmed 04/26/25] gabapentin 300 mg capsule 300 mg PO TID 11/22/24 [History Confirmed 04/26/25] methocarbamol 750 mg tablet 750 mg PO Q8H PRN Muscle Pain 11/22/24 [History Confirmed 04/26/25] upadacitinib 15 mg tablet,extended release 24 hr (Rinvoq) 15 mg PO QDAY 11/22/24 [History Confirmed 04/26/25] Held on 11/30/24. Instructions: Resume on 11/30/24. Hold until you see your PCP zolpidem 12.5 mg tablet,extended release,multiphase (Ambien CR) 12.5 mg PO HS 11/22/24 [History Confirmed 04/26/25] aluminum-mag hydroxide-simethicone 200 mg-200 mg-20 mg/5 mL oral susp (Mag-Al Plus) 30 ml PO Q4HR PRN Upset Stomach/Indigestion #3,000 mL 11/30/24 [Rx Confirmed 04/26/25] hydrocodone 5 mg-acetaminophen 325 mg tablet 1 tab PO BID PRN pain #10 tabs 11/30/24 [Rx Confirmed 04/26/25] propranolol 10 mg tablet 10 mg PO TID #30 tabs 12/15/24 [Rx Confirmed 04/26/25] benzonatate 150 mg capsule 150 mg PO Q6H #90 caps 02/10/25 [Rx Confirmed 04/26/25] lidocaine 5 % topical patch 1 patch topical QDAY #30 ea 02/24/25 [Rx Confirmed 04/26/25] oxycodone-acetaminophen 5 mg-325 mg tablet (Percocet) 1 tab PO Q6H PRN pain #30 tabs 03/08/25 [Rx Confirmed 04/26/25] ciprofloxacin HCl 500 mg tablet 500 mg PO BID #10 tabs 03/09/25 [Rx Confirmed 04/26/25] pantoprazole 40 mg tablet,delayed release (Protonix) 40 mg PO QDAY #90 tabs 03/09/25 [Rx Confirmed 04/26/25] WILMER Intake Visit Data Collection New Patient or Established: Established Patient (seen at [facility] within 3 years) Seen by Clinical Staff ONLY (RN/WILMER): No Reason for Visit:: FOLLOW UP Pain Present Currently: No PCP or OBGYN visit in last 3 months: Yes Hx Now: No Do You Feel Safe at Home: Yes Authorities Contacted: N/A Smoking Status Smoking Status: Never smoker Immunization / Flu Flu Vaccine in the Last 12 Months: No Flu Vaccine Exclusion Criteria: No Exclusion Criteria Past Medical History Past Medical History NEUROLOGIC: Negative Neurological Disorders or Seizures CARDIAC: Positive Cardiac Disorders and Hypertension; Negative Congestive Heart Failure RESPIRATORY: Positive Asthma; Negative Chronic Obstructive Pulmonary Disease (COPD) GASTROINTESTINAL: Positive Gastrointestinal Disorders, Ulcer and Obesity; Negative Hepatitis or Colorectal Cancer GENITOURINARY: Positive Genitourinary Disorders and Kidney Stones; Negative Renal Disease REPRODUCTIVE: Positive Endometriosis; Negative Breast Cancer MUSCULOSKELETAL: Positive Rheumatoid Arthritis; Negative Bone Cancer ENT: Positive Ear Infection ENDOCRINE: Positive Endocrine Disorders, Hypoglycemia, Hyperthyroidism and Hypothyroidism; Negative Diabetes Mellitus Type 1 or Diabetes Mellitus Type 2 HEMATOLOGIC: Positive Blood Disorders and Anemia; Negative Sickle Cell Disease PSYCHO/SOCIAL: Positive Depression and Anxiety OTHER HISTORY: Positive Falls and Chicken Pox; Negative Blood Transfusions, Blood Transfusion Reaction, Anesthesia Reactions, Organ Transplant, MRSA, VRSA, Vancomycin-Resistant Enterococci, Breast Cancer, Cervical Cancer, Colorectal Cancer, Lung Cancer or Ovarian Cancer Family History FAMILY HISTORY: Positive Family Cardiac Disorders, Family Surgery and Family Anesthesia Reaction; Negative Family Psychiatric Problems, Family Respiratory Disorders, Family Gastrointestinal Problems or Family Cancer Surgical History SURGICAL: Positive Abdominal Surgery and Gastric Bypass Surgery; Negative Cardiac Surgery, Endocrine Surgery, Ear Surgery, Nephrectomy, Joint Replacement, Neurologic Surgery, Mastectomy, Tubal Ligation or Organ Transplant Social History SMOKING STATUS: Smoking status: Never smoker ALCOHOL: Alcohol Intake: Never HOUSING: Housing: House LIVES WITH: Lives With: Spouse HPI HPI Narrative 55F with RA chronically on prednisone, remote history of gastric bypass, with perforated gastrojejunostomy s/p emergent repair 11/23, course complicated by intraabdominal abscesses, here for planned follow up. Pt states that lately she has had less of an appetite, and has been vomiting sometimes after eating, sometimes even when she has not recently eaten. Her pain is stable and she denies any fever, and her BMs are regular. Her midline wound is being dressed with Dakins soaked gauze and her previous drain site is still being packed although it is needing less than before. Pt is still working with PT and needing assistance from her to transfer from her wheelchair ROS Review of Systems Systems Reviewed: All systems reviewed, normal except as documented Objective/Exam General General Appearance: alert, cooperative and well groomed Resp Respiratory exam: Absent respiratory distress Abdominal Abdominal exam: Present soft and incision (midline wound almost fully healed with beefy red granulation tissue at base, no erythema, no fluctuance or tenderness. LLQ drain site with no surrounding erythema, no fluctuance or tenderness); Absent distention or tenderness Assessment & Plan Diagnosis / Problem List (1) Decreased appetite: Status: Acute Assessment & Plan: 55F with RA chronically on prednisone, remote history of gastric bypass, with perforated gastrojejunostomy s/p emergent repair 11/23, course complicated by i ntraabdominal abscesses, gradually recovering. Due to her recent onset of decreased appetite and vomiting I will order a CT. All questions were answered and pt is agreeable with this plan Orders: Orders CT abdomen pelvis w con Today Office Procedures GNS Level of Care Nursing/Assessment Patient Status: Established Patient Nursing Assessment/Reassesment: Medication Reconciliation, Update PMH in EMR and Vital Signs Coordination of Care: Complex Care and Chronic Disease 1-5, Consent,records obtained, informed consent, Education Simp Pt/Fam, Results/Orders obtained and Staff clarify orders Established Patient Charge Established Patient Point Assignment: 90 Established Patient Point Charge: EP Level 3 (80-115) Patient Portal Questionaires Social History Living Situation History Housing: House Housing Other:: Spouse Tobacco History Smoking Status: Never smoker Alcohol History Alcohol Intake: Never Domestic Abuse History Do You Feel Safe at Home: Yes Review of Systems Report any current symptoms Only answer those that you have currently: Past Medical History Past Medical History Have you ever been diagnosed with any of the following: Neurological Problems Seizures: No Cardiology Problems Congestive Heart Failure: No Hypertension: Yes Respiratory Problems Chronic Obstructive Pulmonary Disease (COPD): No Asthma: Yes Stomache/Intestinal Problems Hepatitis: No Ulcer: Yes Colorectal Cancer: No Obesity: Yes Genital/Urinary Problems Renal Disease: No Kidney Stones: Yes Reproductive Problems Breast Cancer: No Endometriosis: Yes Musculoskeletal Problems Bone Cancer: No Rheumatoid Arthritis: Yes Head,Eye,Nose,Throat Problems Chronic Ear Infections: Yes Endocrine Problems Diabetes Mellitus Type 1: No Diabetes Mellitus Type 2: No Hypoglycemia: Yes Hyperthyroidism: Yes Hypothyroidism: Yes Blood Problems Anemia: Yes Sickle Cell Disease: No Psychologic Problems Depression: Yes Anxiety: Yes Other Problems Falls: Yes Blood Transfusions: No Blood Transfusion Reaction: No Anesthesia Reactions: No Organ Transplant: No MRSA: No VRSA: No Vancomycin-Resistant Enterococci: No Chicken Pox: Yes Cervical Cancer: No Lung Cancer: No Ovarian Cancer: No
== END 2025-04-26 11:23 | disposition home or self-care (01) ==
PROVIDERS: PCP Family Medicine; Referring Provider Family Medicine; Supervising Provider Surgery; Visit Provider Surgery
DX: R63.0 Anorexia (principal); K65.1 Peritoneal abscess
CPT/HCPCS: 99213; G0463

== ENCOUNTER → 2025-05-04 | Outpatient (CLI) | payer BC, SELFPAY ==
[2025-05-04 16:36] LABS: Basophils # (Auto) 0.1 Thou/mm3 (0.0-0.2); Basophils % (Auto) 1 % (0-2.5); Eosinophils # (Auto) 0.1 Thou/mm3 (0.0-0.5); Eosinophils % (Auto) 1 % (0-10); Hemoglobin 12.5 g/dL (12.0-16.0); Immature Granulocytes % (Auto) 0 % (0-0); Immature Granulocytes Auto 0.03 Thou/mm3 (0.00-0.00); Lymphocytes # (Auto) 2.7 Thou/mm3 (1.0-4.8); Lymphocytes % (Auto) 27 % (10-50); Mean Corpuscular HGB Conc 30.5 g/dl (31.0-37.0); Mean Corpuscular Hemoglobin 28.2 pg (25.0-35.0); Mean Corpuscular Volume 92 fL (80-100); Monocytes # (Auto) 0.4 Thou/mm3 (0.0-0.8); Monocytes % (Auto) 4 % (0-12); Neutrophils # (Auto) 6.6 Thou/mm3 (1.8-7.7); Neutrophils % (Auto) 67 % (37-80); Nucleated Red Blood Cell % 0 /100 WBC (0); Platelet Count 514 Thou/mm3 (140-440); RDW Standard Deviation 62.6 fL (36.4-46.3); Red Blood Count 4.44 Miln/mm3 (4.00-5.20); White Blood Count 9.9 Thou/mm3 (3.6-11.0)
[2025-05-04 16:58] LABS: Vitamin B12 1747 pg/mL (211-911)
[2025-05-04 17:08] LABS: Alanine Aminotransferase 23 U/L (10-49); Albumin, Serum 2.7 gm/dL (3.5-5.0); Alkaline Phosphatase 137 U/L (46-116); Anion Gap 17 (7-16); Aspartate Amino Transferase 64 U/L (0-34); BUN/Creatinine Ratio 10 Ratio (12-20); Bilirubin,Total 0.7 mg/dL (0.3-1.2); Blood Urea Nitrogen 10 mg/dL (9-23); Calcium 8.1 mg/dL (8.3-10.6); Calcium (Corrected) 9.1 mg/dL (8.5-10.1); Carbon Dioxide 19.1 mMol/L (20.0-31.0); Chloride 102 mMol/L (98-107); Free T4 (Free Thyroxine) 1.66 ng/dL (0.89-1.76); Globulin 2.7 gm/dL (2.3-3.5); Glucose 92 mg/dL (74-106); Osmolality,Calculated 274 (275-295); Sodium 138 mMol/L (136-145); Thyroid Stimulating Hormone 1.44 uIU/mL (0.55-4.78); Total Protein 5.4 gm/dL (5.7-8.2); eGFR > 60 See Note
[2025-05-04 17:10] LABS: Potassium 2.9 mMol/L (3.4-5.1)
[2025-05-11 07:00] LABS: T3,Total* 29 ng/dL (76-181)
== END | disposition home or self-care (01) ==
LOC: COPL 15:51
PROVIDERS: PCP Family Medicine; Referring Provider Nurse Practitioner Family; Visit Provider Nurse Practitioner Family
DX: R63.4 Abnormal weight loss (principal); E03.9 Hypothyroidism, unspecified; I10 Essential (primary) hypertension
CPT/HCPCS: 36415; 80053; 82607; 84439; 84443; 84480; 85025

== ENCOUNTER → 2025-05-10 | Outpatient (CLI) | payer BC, SELFPAY ==
[2025-05-10 16:25] LABS: Basophils # (Auto) 0.1 Thou/mm3 (0.0-0.2); Basophils % (Auto) 1 % (0-2.5); Eosinophils # (Auto) 0.1 Thou/mm3 (0.0-0.5); Eosinophils % (Auto) 1 % (0-10); Hematocrit 40.6 % (36.0-46.0); Hemoglobin 12.3 g/dL (12.0-16.0); Immature Granulocytes % (Auto) 0 % (0-0); Immature Granulocytes Auto 0.04 Thou/mm3 (0.00-0.00); Lymphocytes # (Auto) 2.7 Thou/mm3 (1.0-4.8); Lymphocytes % (Auto) 28 % (10-50); Mean Corpuscular HGB Conc 30.3 g/dl (31.0-37.0); Mean Corpuscular Hemoglobin 28.4 pg (25.0-35.0); Mean Corpuscular Volume 94 fL (80-100); Monocytes # (Auto) 0.6 Thou/mm3 (0.0-0.8); Monocytes % (Auto) 6 % (0-12); Neutrophils # (Auto) 6.2 Thou/mm3 (1.8-7.7); Neutrophils % (Auto) 64 % (37-80); Nucleated Red Blood Cell % 0 /100 WBC (0); Platelet Count 461 Thou/mm3 (140-440); RDW Standard Deviation 70.1 fL (36.4-46.3); Red Blood Count 4.33 Miln/mm3 (4.00-5.20); White Blood Count 9.7 Thou/mm3 (3.6-11.0)
[2025-05-10 16:42] LABS: Vitamin B12 978 pg/mL (211-911)
[2025-05-10 16:57] LABS: Alanine Aminotransferase 8 U/L (10-49); Albumin, Serum 2.6 gm/dL (3.5-5.0); Alkaline Phosphatase 110 U/L (46-116); Anion Gap 17 (7-16); Aspartate Amino Transferase 19 U/L (0-34); BUN/Creatinine Ratio 12 Ratio (12-20); Bilirubin,Total 0.6 mg/dL (0.3-1.2); Blood Urea Nitrogen 12 mg/dL (9-23); Calcium 8.4 mg/dL (8.3-10.6); Calcium (Corrected) 9.5 mg/dL (8.5-10.1); Carbon Dioxide 16.5 mMol/L (20.0-31.0); Chloride 106 mMol/L (98-107); Free T4 (Free Thyroxine) 1.16 ng/dL (0.89-1.76); Globulin 2.5 gm/dL (2.3-3.5); Glucose 98 mg/dL (74-106); Osmolality,Calculated 277 (275-295); Potassium 4.2 mMol/L (3.4-5.1); Sodium 139 mMol/L (136-145); Thyroid Stimulating Hormone 6.79 uIU/mL (0.55-4.78); Total Protein 5.1 gm/dL (5.7-8.2); eGFR > 60 See Note
[2025-05-14 06:44] LABS: T3,Total* 28 ng/dL (76-181)
== END | disposition home or self-care (01) ==
LOC: COPL 15:40
PROVIDERS: PCP Family Medicine; Referring Provider Nurse Practitioner Family; Visit Provider Nurse Practitioner Family
DX: R63.4 Abnormal weight loss (principal); E03.9 Hypothyroidism, unspecified; I10 Essential (primary) hypertension
CPT/HCPCS: 36415; 80053; 82607; 84439; 84443; 84480; 85025

== ENCOUNTER → 2025-05-11 | Outpatient (CLI) | payer BC, SELFPAY ==
[2025-05-11 14:45] LABS: Collection Type, Urine Clean Catch
[2025-05-11 16:04] LABS: Bacteria,Urine Rare; Bilirubin,Urine Negative (Negative); Blood,Urine 3+ (Negative); Glucose, Urine Negative (Negative); Ketones,Urine Negative (Negative); Leukocyte Esterase,Urine Positive (Negative); Nitrite,Urine Negative (Negative); Protein,Urine 1+ (Neg - Trace); RBC,Urine 6 /hpf (0-3); Specific Gravity,Urine 1.012 (1.001-1.035); Squamous Epithelial Cell,Urine 7 /hpf (0-5); Urobilinogen,Urine Negative mg/dL (0.0-1.0); WBC,Urine 93 /hpf (0-5)
[2025-05-11 16:13] LABS: Color,Urine Lt-Yellow (Lt Yel-Yel)
[2025-05-11 16:14] LABS: Clarity,Urine Hazy (Clear/Hazy)
== END | disposition home or self-care (01) ==
LOC: SLDO 14:37
PROVIDERS: PCP Family Medicine; Referring Provider Family Medicine; Visit Provider Family Medicine
DX: N39.0 Urinary tract infection, site not specified (principal)
CPT/HCPCS: 81001; 87077; 87086; 87186

== ENCOUNTER → 2025-06-04 | Outpatient (CLI) | payer BC, SELFPAY ==
[2025-06-01 15:24] LABS: HCG Qualitative,Urine Negative
--- NOTE | 2025-06-04 13:00 | XR_ITS ---
Examination: CT abdomen and pelvis without contrast. Coronal 3-D reconstructions. Sagittal 2-D reconstructions. Date and time of exam:June 04, 2025 1323 hours Comparison December 15, 2024 INDICATIONS: Gastritis epigastric pain 7 months CTDI: vol (mGy): 11.7 DLP: (mGycm): 20 Technique: Axial images of the abdomen have been obtained, 3 mm slice thickness Intravenous contrast material has not been administered. Low dose protocols were performed. One or more of the following dose reduction techniques were used; automated exposure control, adjustment of the mA and/or KV according to patient size, use of iterative reconstruction technique. Findings: Small left pleural effusion Gastric sutures Gastric edema is not depicted Fatty infiltration throughout the liver Absent gallbladder Hypodense mass in the body the pancreas 10 mm Left subphrenic abscess collection measuring 19 mm in thickness No hydronephrosis Aorta normal size No bowel obstruction No pericecal inflammatory change No pelvic mass Contracted urinary bladder Moderate osteopenia IMPRESSION: 10 mm hypodense mass body of the pancreas, recommend MRI MRCP abdomen without contrast follow-up Left subphrenic abscess collection 19 mm in thickness
== END | disposition home or self-care (01) ==
LOC: CCTX 13:06
PROVIDERS: PCP Family Medicine; Referring Provider Nurse Practitioner Family; Visit Provider Nurse Practitioner Family
DX: K86.89 Other specified diseases of pancreas (principal); L02.211 Cutaneous abscess of abdominal wall; Z32.00 Encounter for pregnancy test, result unknown
CPT/HCPCS: 74176; 81025

== ENCOUNTER 2025-06-07 12:51 | Outpatient (AMB) | payer BC, SELFPAY ==
[2025-06-07 13:00] VITALS: BP 86/65; PULSE 138; RESP 19; TEMP 36.3; O2SAT 97
--- NOTE | 2025-06-07 13:00 | PD.GSCLVISIT ---
Vital Signs - [facility] 06/07/25 13:00 Height 1.65 m Height Method Stated Weight Measurement Method Wheelchair BP 86/65 L Blood Pressure Source Automatic Cuff Blood Pressure Location Right Upper Arm Position Sitting Respiration 19 Pulse 138 H Pulse Source Monitor Temp 97.3 F Temp Source Temporal Artery Scan Pulse Oximetry (%) 97 Oxygen Delivery Method Room Air Med/Allergies Allergies & Medications Allergies sulfamethoxazole Allergy (Unknown, Verified 06/07/25 13:01) SERUM SICKNESS trimethoprim Allergy (Unknown, Verified 06/07/25 13:01) SERUM SICKNESS Medication Reconciliation montelukast 10 mg tablet (Singulair) 1 tab PO QDAY ##0 05/10/17 [History Confirmed 06/07/25] albuterol sulfate 90 mcg/actuation aerosol inhaler 2 inh inhalation Q4H PRN Wheezing 08/07/23 [History Confirmed 06/07/25] gabapentin 300 mg capsule 300 mg PO TID 11/22/24 [History Confirmed 06/07/25] methocarbamol 750 mg tablet 750 mg PO Q8H PRN Muscle Pain 11/22/24 [History Confirmed 06/07/25] upadacitinib 15 mg tablet,extended release 24 hr (Rinvoq) 15 mg PO QDAY 11/22/24 [History Confirmed 06/07/25] Held on 11/30/24. Instructions: Resume on 11/30/24. Hold until you see your PCP zolpidem 12.5 mg tablet,extended release,multiphase (Ambien CR) 12.5 mg PO HS 11/22/24 [History Confirmed 06/07/25] aluminum-mag hydroxide-simethicone 200 mg-200 mg-20 mg/5 mL oral susp (Mag-Al Plus) 30 ml PO Q4HR PRN Upset Stomach/Indigestion #3,000 mL 11/30/24 [Rx Confirmed 06/07/25] hydrocodone 5 mg-acetaminophen 325 mg tablet 1 tab PO BID PRN pain #10 tabs 11/30/24 [Rx Confirmed 06/07/25] propranolol 10 mg tablet 10 mg PO TID #30 tabs 12/15/24 [Rx Confirmed 06/07/25] benzonatate 150 mg capsule 150 mg PO Q6H #90 caps 12/28/24 [Rx Confirmed 06/07/25] lidocaine 5 % topical patch 1 patch topical QDAY #30 ea 02/24/25 [Rx Confirmed 06/07/25] oxycodone-acetaminophen 5 mg-325 mg tablet (Percocet) 1 tab PO Q6H PRN pain #30 tabs 03/08/25 [Rx Confirmed 06/07/25] ciprofloxacin HCl 500 mg tablet 500 mg PO BID #10 tabs 03/09/25 [Rx Confirmed 06/07/25] pantoprazole 40 mg tablet,delayed release (Protonix) 40 mg PO QDAY #90 tabs 03/09/25 [Rx Confirmed 06/07/25] lisinopril 40 mg tablet 40 mg PO QDAY 06/07/25 [History Confirmed 06/07/25] MA Intake Visit Data Collection New Patient or Established: Established Patient (seen at [facility] within 3 years) Reason for Visit:: FOLLOW UP Pain Present Currently: Yes Pain scale:: 6 Pain Scale Used: [employer]/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 Required: No PCP or OBGYN visit in last 3 months: Yes Hx Now: No Do You Feel Safe at Home: Yes Authorities Contacted: N/A Smoking Status Smoking Status: Never smoker Immunization / Flu Flu Vaccine in the Last 12 Months: No Flu Vaccine Exclusion Criteria: No Exclusion Criteria Past Medical History Past Medical History NEUROLOGIC: Negative Neurological Disorders or Seizures CARDIAC: Positive Cardiac Disorders and Hypertension; Negative Congestive Heart Failure RESPIRATORY: Positive Asthma; Negative Chronic Obstructive Pulmonary Disease (COPD) GASTROINTESTINAL: Positive Gastrointestinal Disorders, Ulcer and Obesity; Negative Hepatitis or Colorectal Cancer GENITOURINARY: Positive Genitourinary Disorders and Kidney Stones; Negative Renal Disease REPRODUCTIVE: Positive Endometriosis; Negative Breast Cancer MUSCULOSKELETAL: Positive Rheumatoid Arthritis; Negative Bone Cancer ENT: Positive Ear Infection ENDOCRINE: Positive Endocrine Disorders, Hypoglycemia, Hyperthyroidism and Hypothyroidism; Negative Diabetes Mellitus Type 1 or Diabetes Mellitus Type 2 HEMATOLOGIC: Positive Blood Disorders and Anemia; Negative Sickle Cell Disease PSYCHO/SOCIAL: Positive Depression and Anxiety OTHER HISTORY: Positive Falls and Chicken Pox; Negative Blood Transfusions, Blood Transfusion Reaction, Anesthesia Reactions, Organ Transplant, MRSA, VRSA, Vancomycin-Resistant Enterococci, Breast Cancer, Cervical Cancer, Colorectal Cancer, Lung Cancer or Ovarian Cancer Family History FAMILY HISTORY: Positive Family Cardiac Disorders, Family Surgery and Family Anesthesia Reaction; Negative Family Psychiatric Problems, Family Respiratory Disorders, Family Gastrointestinal Problems or Family Cancer Surgical History SURGICAL: Positive Abdominal Surgery and Gastric Bypass Surgery; Negative Cardiac Surgery, Endocrine Surgery, Ear Surgery, Nephrectomy, Joint Replacement, Neurologic Surgery, Mastectomy, Tubal Ligation or Organ Transplant Social History SMOKING STATUS: Smoking status: Never smoker SUBSTANCE USE: Substance use type: does not use ALCOHOL: Alcohol Intake: Never HOUSING: Housing: House LIVES WITH: Lives With: Spouse Travel Risk Travel Hx Recent Travel: No HPI HPI Narrative 55F with RA chronically on prednisone, remote history of gastric bypass, with perforated gastrojejunostomy s/p emergent repair 11/23, course complicated by intraabdominal abscesses, here to discuss CT results. At last visit pt was reporting decreased appetite, she underwent CT 06/04 showing subphrenic abscess 19mm in thickness as well as a 10mm lesion in the body of the pancreas. Pt reports she is feeling better lately compared to last visit, with some improvement in her appetite and her pain is well managed. She denies having any recent fever/nausea/malaise and is continuing to increase her physical activity. She returned to work last week and is still being followed by wound care, they continue to pack her prior drain site as she reports there tends to be purulent drainage each time it is changed ROS Review of Systems Systems Reviewed: All systems reviewed, normal except as documented Objective/Exam General General Appearance: alert, cooperative and well groomed Resp Respiratory exam: Absent respiratory distress Abdominal Abdominal exam: Present soft and scar (midline incision well-healed, LLQ drain site with no surrounding erythema, packing replaced); Absent distention or tenderness Assessment & Plan Diagnosis / Problem List (1) Gastric perforation: Status: Acute Assessment & Plan: 55F with RA chronically on prednisone, remote history of gastric bypass, with perforated gastrojejunostomy s/p emergent repair 11/23, course complicated by intraabdominal abscesses, gradually recovering. As far as her residual subphrenic abscess, pt is not having signs/symptoms of persistent infection so I would not pursue any intervention for now. Plan: F/u in 3 mos (2) Lesion of pancreas: Status: Acute Assessment & Plan: Pt is aware of the lesion noted on CT and prefers to follow up with her PCP for MRI/MRCP Office Procedures GNS Level of Care Nursing/Assessment Patient Status: Established Patient Nursing Assessment/Reassesment: Medication Reconciliation, Update PMH in EMR and Vital Signs Coordination of Care: Complex Care and Chronic Disease 1-5, Education Complex Pt/Fam, Consent,records obtained, informed consent, Results/Orders obtained and Staff clarify orders Established Patient Charge Established Patient Point Assignment: 95 Established Patient Point Charge: Level 3 (80-115) Patient Portal Questionaires Social History Living Situation History Housing: House Housing Other:: Spouse Tobacco History Smoking Status: Never smoker Alcohol History Alcohol Intake: Never Domestic Abuse History Do You Feel Safe at Home: Yes Review of Systems Report any current symptoms Only answer those that you have currently: Past Medical History Past Medical History Have you ever been diagnosed with any of the following: Neurological Problems Seizures: No Cardiology Problems Congestive Heart Failure: No Hypertension: Yes Respiratory Problems Chronic Obstructive Pulmonary Disease (COPD): No Asthma: Yes Stomache/Intestinal Problems Hepatitis: No Ulcer: Yes Colorectal Cancer: No Obesity: Yes Genital/Urinary Problems Renal Disease: No Kidney Stones: Yes Reproductive Problems Breast Cancer: No Endometriosis: Yes Musculoskeletal Problems Bone Cancer: No Rheumatoid Arthritis: Yes Head,Eye,Nose,Throat Problems Chronic Ear Infections: Yes Endocrine Problems Diabetes Mellitus Type 1: No Diabetes Mellitus Type 2: No Hypoglycemia: Yes Hyperthyroidism: Yes Hypothyroidism: Yes Blood Problems Anemia: Yes Sickle Cell Disease: No Psychologic Problems Depression: Yes Anxiety: Yes Other Problems Falls: Yes Blood Transfusions: No Blood Transfusion Reaction: No Anesthesia Reactions: No Organ Transplant: No MRSA: No VRSA: No Vancomycin-Resistant Enterococci: No Chicken Pox: Yes Cervical Cancer: No Lung Cancer: No Ovarian Cancer: No
== END 2025-06-07 13:18 | disposition home or self-care (01) ==
LOC: HODSRG 12:51
PROVIDERS: PCP Family Medicine; Referring Provider Family Medicine; Supervising Provider Surgery; Visit Provider Surgery
DX: K65.1 Peritoneal abscess (principal); K86.9 Disease of pancreas, unspecified
CPT/HCPCS: 99213; G0463

== ENCOUNTER → 2025-06-10 | Outpatient (CLI) | payer BC, SELFPAY ==
[2025-06-10 15:15] LABS: Collection Type, Urine Clean Catch
[2025-06-10 16:32] LABS: Bilirubin,Urine Negative (Negative); Blood,Urine 1+ (Negative); Color,Urine Orange (Lt Yel-Yel); Glucose, Urine Negative (Negative); Ketones,Urine Negative (Negative); Leukocyte Esterase,Urine Positive (Negative); Nitrite,Urine Negative (Negative); PH,Urine 7.0 (5.0-7.0); Protein,Urine 2+ (Neg - Trace); RBC,Urine 13 /hpf (0-3); Specific Gravity,Urine 1.018 (1.001-1.035); Squamous Epithelial Cell,Urine 6 /hpf (0-5); Urobilinogen,Urine Negative mg/dL (0.0-1.0); WBC,Urine 1101 /hpf (0-5)
[2025-06-10 16:41] LABS: Clarity,Urine Turbid (Clear/Hazy)
== END | disposition home or self-care (01) ==
LOC: COPL 14:41
PROVIDERS: PCP Nurse Practitioner Family; Referring Provider Nurse Practitioner Family; Visit Provider Nurse Practitioner Family
DX: N39.0 Urinary tract infection, site not specified (principal)
CPT/HCPCS: 81001; 87077; 87086; 87186

== ENCOUNTER → 2025-07-02 | Outpatient (CLI) | payer BC, SELFPAY ==
[2025-07-02 16:48] LABS: Basophils # (Auto) 0.0 Thou/mm3 (0.0-0.2); Basophils % (Auto) 0 % (0-2.5); Eosinophils # (Auto) 0.0 Thou/mm3 (0.0-0.5); Eosinophils % (Auto) 0 % (0-10); Hematocrit 38.8 % (36.0-46.0); Hemoglobin 12.4 g/dL (12.0-16.0); Immature Granulocytes Auto 0.02 Thou/mm3 (0.00-0.00); Lymphocytes # (Auto) 0.9 Thou/mm3 (1.0-4.8); Lymphocytes % (Auto) 11 % (10-50); Mean Corpuscular HGB Conc 32.0 g/dl (31.0-37.0); Mean Corpuscular Hemoglobin 32.9 pg (25.0-35.0); Mean Corpuscular Volume 103 fL (80-100); Monocytes # (Auto) 0.6 Thou/mm3 (0.0-0.8); Monocytes % (Auto) 7 % (0-12); Neutrophils # (Auto) 7.3 Thou/mm3 (1.8-7.7); Neutrophils % (Auto) 82 % (37-80); Nucleated Red Blood Cell # 0.00 Thou/mm3 (0.00-0.00); Nucleated Red Blood Cell % 0 /100 WBC (0); Platelet Count 363 Thou/mm3 (140-440); RDW Standard Deviation 69.8 fL (36.4-46.3); Red Blood Count 3.77 Miln/mm3 (4.00-5.20); White Blood Count 9.0 Thou/mm3 (3.6-11.0)
[2025-07-02 18:00] LABS: Alanine Aminotransferase < 7 U/L (10-49); Albumin, Serum 3.2 gm/dL (3.5-5.0); Albumin/Globulin Ratio 1.3 (1.2-2.2); Alkaline Phosphatase 128 U/L (46-116); Anion Gap 15 (7-16); Aspartate Amino Transferase 19 U/L (0-34); BUN/Creatinine Ratio 9 Ratio (12-20); Bilirubin,Total 0.7 mg/dL (0.3-1.2); Blood Urea Nitrogen 6 mg/dL (9-23); Calcium 8.7 mg/dL (8.3-10.6); Calcium (Corrected) 9.3 mg/dL (8.5-10.1); Carbon Dioxide 19.9 mMol/L (20.0-31.0); Chloride 101 mMol/L (98-107); Creatinine (Component) 0.7 mg/dL (0.6-1.3); Globulin 2.5 gm/dL (2.3-3.5); Glucose 125 mg/dL (74-106); Osmolality,Calculated 270 (275-295); Phosphorous 2.5 mg/dL (2.4-5.1); Potassium 3.6 mMol/L (3.4-5.1); Sodium 136 mMol/L (136-145); Thyroid Stimulating Hormone 0.10 uIU/mL (0.55-4.78); Total Protein 5.7 gm/dL (5.7-8.2); eGFR > 60 See Note
== END | disposition home or self-care (01) ==
LOC: COPL 15:46
PROVIDERS: PCP Family Medicine; Referring Provider Nurse Practitioner Family; Visit Provider Nurse Practitioner Family
DX: E03.9 Hypothyroidism, unspecified (principal); R63.4 Abnormal weight loss; K25.1 Acute gastric ulcer with perforation
CPT/HCPCS: 36415; 80053; 84100; 84443; 85025

== ENCOUNTER 2025-07-04 13:23 | Inpatient (IN) | payer BC, SELFPAY ==
[2025-07-04] VITALS (8 sets, daily range): BP systolic 66–135; BP diastolic 55–98; PULSE 127–157; RESP 17–100; TEMP 36.1–38.5; O2SAT 98–100
--- NOTE | 2025-07-04 13:38 | XR_ITS ---
Examination: CT brain head without contrast. 2-D sagittal coronal reconstructions Date and time of exam:July 04, 2025 1618 hours INDICATIONS: Altered mental status today with hallucinations CTDI: vol (mGy):(The 3:00 AM DLP: (mGycm):9 Technique: Multiple CT axial sections of the brain have been obtained, 5 mm slice thickness. Contrast has not been administered. 2-D sagittal, coronal reconstructions have been obtained Low dose protocols were performed. One or more of the following dose reduction techniques were used; automated exposure control, adjustment of the mA and/or KV according to patient size, use of iterative reconstruction technique. Findings: No significant ventricular enlargement. Intra-axial or extra-axial hemorrhage density is not seen. No mass effect or midline shift Basal cisterns are not remarkable. Fourth ventricle is midline. Cranial vault intact. Significant sphenoid ethmoid sinusitis Impression: Negative for acute hemorrhage, mass effect or midline shift Advise clinical correlation and follow up accordingly
--- NOTE | 2025-07-04 13:38 | EKG_ITS ---
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
--- NOTE | 2025-07-04 13:39 | PD.EDRME ---
Rapid Medical Screening Exam RME Arrival date/time: 07/04/25 13:23 55-year-old female with a history of hypertension, hypothyroidism, presents to the emergency room with a chief complaint of altered mental status. According to family member at bedside the patient does not baseline and is hallucinating since 3 AM this morning I have greeted and performed a focused initial assessment of this patient. A comprehensive ED assessment and evaluation of the patient, analysis of all test results, and completion of the medical decision making process will be conducted by additional ED providers. Chief Complaint: General Adult/Misc Complain Vital signs reviewed by provider: Yes
--- NOTE | 2025-07-04 14:04 | EKG_ITS ---
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
--- NOTE | 2025-07-04 14:05 | XR_ITS ---
Examination: AP chest single view Technique one AP portable semiupright chest single view Date and time: 12/04/2024 1412 hrs. Comparison November 23, 2024 Indications: Sepsis alert today. Findings: Early pneumonia left base Normal heart size Multiple old right-sided rib fractures Impression: Early pneumonia left base
--- NOTE | 2025-07-04 14:08 | EDNOTE_ITS ---
<Statement entered by Cathy Negron MD - 07/19/25 06:34> I, Cathy Negron MD, have reviewed the history, exam, and assessment of the patient. I have evaluated the patient independently and agree with the plan of care documented by [ ]. All diagnostic studies were reviewed and discussed. I confirm the diagnosis as documented by the Resident. I was present during the Medical Decision Making for this patient. The patient's plan of care was created between myself and the Resident and consistent with our discussion of the patient's case. ED General RME/HPI General Chief complaint: General Adult/Misc Complain Stated complaint: HALLUCINATIONS SINCE 3 AM Time Seen by Provider: 07/04/25 14:02 Arrival date/time: 07/04/25 13:23 RME / HPI RME / HPI narrative: 07/04/25 13:23 55-year-old female with a history of hypertension, hypothyroidism, presents to the emergency room with a chief complaint of altered mental status. According to family member at bedside the patient does not baseline and is hallucinating since 3 AM this morning I have greeted and performed a focused initial assessment of this patient. A comprehensive ED assessment and evaluation of the patient, analysis of all test results, and completion of the medical decision making process will be conducted by additional ED providers. 55-year-old female with past medical history of hypertension, hypothyroidism, rheumatoid arthritis, and Lynn-en-Y gastric bypass, and perforated gastrojejunostomy s/p repair consumed due to altered mental status. Per patient's who was at bedside stated that patient is very weak since she got her surgery in November, but that today she became very confused. He mentioned that the patient's blood pressure normally drops, but today she did not have any issues. He also mentioned that he has not always any chills or fevers. Patient mentioned that sometimes she does have burning sensation in urination. Otherwise had no other complaints at this time. Denied having any chest pain, shortness of breath, abdominal pain, diarrhea, or blood in the urine. Patient had a CT abdomen/pelvis on 06/04/2025 that showed a left subphrenic abscess measuring 19 mm. Denies any smoking, drugs, alcohol Related Data Home Medications ?Medication ?Instructions ?Recorded ?Confirmed montelukast 10 mg tablet 1 tab PO QDAY ##0 05/10/17 0 06/07/25 (Singulair) albuterol sulfate 90 mcg/actuation 2 inh inhalation Q4 H PRN Wheezing 08/07/23 06/07/25 aerosol inhaler gabapentin 300 mg capsule 300 mg PO TID 11/22/2406/07 methocarbamol 750 mg tablet 750 mg PO Q8H PRN Muscle P ain 11/22/24 06/07/25 upadacitinib 15 mg tablet,extended 15 mg PO QDAY 11/2206/07/25 release 24 hr (Rinvoq) Held on 11/30/24. Instructions: Resume on 11/30/24. Hold until you see your PCP zolpidem 12.5 mg tablet,extended 12.5 mg PO HS 5 06/07/25 release,multiphase (Ambien CR) lisinopril 40 mg tablet 40 mg PO QDAY 06/07/2506/07 Previous Rx's ?Medication ?Instructions ?Recorded aluminum-mag hydroxide-simethicone 30 ml PO Q4HR PRN U pset 11/30/24 200 mg-200 mg-20 mg/5 mL oral susp Stomach/Indigestion #3,000 mL (Mag-Al Plus) hydrocodone 5 mg-acetaminophen 325 1 tab PO BID PRN pa in #10 tabs 11/30/24 mg tablet propranolol 10 mg tablet 10 mg PO TID #30 tabs benzonatate 150 mg capsule 150 mg PO Q6H #90 caps 12/19 0 lidocaine 5 % topical patch 1 patch topical QDAY #30 e a 02/24/25 oxycodone-acetaminophen 5 mg-325 1 tab PO Q6H PRN pain #30 tabs 03/08/25 mg tablet (Percocet) ciprofloxacin HCl 500 mg tablet 500 mg PO BID #10 tabs 03/09/25 pantoprazole 40 mg tablet,delayed 40 mg PO QDAY #90 ta bs 03/09/25 release (Protonix) Allergies Allergy/AdvReac Type Severity Reaction Status Date / Time sulfamethoxazole Allergy Unknown SERUM Verified 07/04/25 13:29 SICKNESS trimethoprim Allergy Unknown SERUM Verified 07/04/25 13:29 SICKNESS Review of Systems Review of Systems Systems Reviewed: All systems reviewed, normal except as documented Past Medical History Past Medical History NEUROLOGIC: Negative Neurological Disorders or Seizures CARDIAC: Positive Cardiac Disorders and Hypertension; Negative Congestive Heart Failure RESPIRATORY: Positive Respiratory Disorders and Asthma; Negative Chronic Obstructive Pulmonary Disease (COPD) GASTROINTESTINAL: Positive Gastrointestinal Disorders, Ulcer and Obesity; Negative Hepatitis or Colorectal Cancer GENITOURINARY: Positive Genitourinary Disorders and Kidney Stones; Negative Renal Disease REPRODUCTIVE: Positive Endometriosis; Negative Breast Cancer MUSCULOSKELETAL: Positive Musculoskeletal Disorders and Rheumatoid Arthritis; Negative Bone Cancer ENT: Positive Ear Infection ENDOCRINE: Positive Endocrine Disorders, Hypoglycemia, Hyperthyroidism and Hypothyroidism; Negative Diabetes Mellitus Type 1 or Diabetes Mellitus Type 2 HEMATOLOGIC: Positive Blood Disorders and Anemia; Negative Sickle Cell Disease PSYCHO/SOCIAL: Positive Depression and Anxiety OTHER HISTORY: Positive Autoimmune Disease, Falls and Chicken Pox; Negative Blood Transfusions, Blood Transfusion Reaction, Anesthesia Reactions, Organ Transplant, MRSA, VRSA, Vancomycin-Resistant Enterococci, Breast Cancer, Cervical Cancer, Colorectal Cancer, Lung Cancer or Ovarian Cancer Family History FAMILY HISTORY: Positive Family Cardiac Disorders, Family Surgery and Family Anesthesia Reaction; Negative Family Psychiatric Problems, Family Respiratory Disorders, Family Gastrointestinal Problems or Family Cancer Surgical History SURGICAL: Positive Abdominal Surgery and Gastric Bypass Surgery; Negative Cardiac Surgery, Endocrine Surgery, Ear Surgery, Nephrectomy, Joint Replacement, Neurologic Surgery, Mastectomy, Tubal Ligation or Organ Transplant Social History SMOKING STATUS: Never smoker SUBSTANCE USE: does not use Course Quality Measures none Orders Category Date Time Status COVID-19 Screening Questionnaire NOW Care 07/04/25 17:[address] Screening NOW Care 07/04/25 14:[address] Screening NOW Care 07/04/25 14:48 Active Investigator STAT Care 07/04/25 14:04 Active Continuous Pulse Oximetry STAT Care 07/04/25 14:04 Completed Decision to Admit X1 Care 07/04/25 17:37 Active EKG (ED ONLY) *Do not use* NOW Care 07/04/25 13:38 Completed EKG (ED ONLY) *Do not use* NOW Care 07/04/25 14:04 Completed In and Out Catheter X1PRN Care 07/04/25 14:04 Completed Insert IV NOW Care 07/04/25 14:04 Active NPO STAT Care 07/04/25 14:04 Active Strict Intake and Output Routine Care 07/04/25 14:[address] abdomen pelvis w con Stat Exams 07/04/25 14:[address] head/brain wo con Stat Exams 07/04/25 13:38 Completed EKG (ED Only) Stat Exams 07/04/25 13:38 Draft EKG (ED Only) Stat Exams 07/04/25 14:04 Ordered XR chest 1V SEPSIS PROTOCOL Stat Exams 07/04/25 14:05 Completed Ammonia Stat Lab 07/04/25 14:51 Completed B-Type Natriuretic Peptide Stat Lab 07/04/25 14:51 Completed Blood Culture (Lab) Stat Lab 07/04/25 14:51 Received CBC Stat Lab 07/04/25 14:51 Completed Comprehensive Metabolic Panel Stat Lab 07/04/25 14:51 Completed Drug Screen,Urine Stat Lab 07/04/25 14:42 Completed Free T4 (Free Thyroxine) Stat Lab 07/04/25 14:51 Completed LDH (Lactate Dehydrogenase) Stat Lab 07/04/25 14:51 Completed Lactate (Lactic Acid) Stat Lab 07/04/25 14:51 Results Lipase Stat Lab 07/04/25 14:51 Completed Magnesium Stat Lab 07/04/25 14:51 Completed Partial Thromboplastin Time Stat Lab 07/04/25 14:51 Completed Phosphorous Stat Lab 07/04/25 14:51 Completed Procalcitonin Stat Lab 07/04/25 14:51 Completed Prothrombin Time with INR Stat Lab 07/04/25 14:51 Completed Troponin I Stat Lab 07/04/25 14:51 Completed Urinalysis Stat Lab 07/04/25 14:42 Completed Urine Culture Stat Lab 07/04/25 14:42 Received Acetaminophen Ivpb [Ofirmev Inj] Med 07/04/25 14:11 Discontinued 1,000 mg in 100 ml IV X1 Magnesium Sulfate 2 GM Ivpb [Magnesium Sulfate Ivpb] Med 07/04/25 15:51 Active 2 gm in 50 ml IV X1 Ondansetron Inj [Zofran Inj] Med 07/04/25 14:03 Active 4 mg IVP Q6HR PRN POTASSIUM CHL 10 mEq IVPB [Kcl Ivpb] Med 07/04/25 15:51 Active 10 meq in 100 ml IV Q1H Piper/Tazo 3.375 gm Premix [Zosyn] Med 07/04/25 14:03 Discontinued 3.375 gm in 50 ml IV X1 Ringers Lactated 1000 ml [Lactated Ringers] 1,779 ml Med 07/04/25 14:03 Discontinued IV 1,779 mls/hr Oxygen Delivery NOW RT 07/04/25 14:04 Active Vital Signs Vital signs: Vital Signs Temperature 97.8 F 07/04/25 13:34 Pulse Rate 157 H 07/04/25 13:34 Respiratory Rate 18 07/04/25 13:34 Blood Pressure 66/55 L 07/04/25 13:34 Pulse Oximetry (%) 100 07/04/25 13:34 Oxygen Delivery Method Room Air 07/04/25 13:34 Discharge Plan Plan Patient Disposition: Admit Acute Care w/in Hospital Prescriptions/Referrals Prescriptions/Med Rec: No Action benzonatate 150 mg capsule 150 mg PO Q6H Qty: 90 1RF lidocaine 5 % adhesive patch,medicated 1 patch topical QDAY Qty: 30 3RF Rx Instructions: leave on most painful area for up to 12 hrs lisinopril 40 mg tablet 40 mg PO QDAY montelukast [Singulair] 10 MG tablet 1 tab PO QDAY Qty: 0 oxycodone-acetaminophen [Percocet] 5-325 mg tablet 1 tab PO Q6H MDD 6 tabs PRN (Reason: pain) Qty: 30 0RF albuterol sulfate 90 mcg/actuation HFA aerosol inhaler 2 inh INHALATION Q4H PRN (Reason: Wheezing) Patient Comments: TAKE 2 PUFFS BY MOUTH EVERY 4 HOURS NEEDED pantoprazole [Protonix] 40 mg tablet,delayed release (DR/EC) 40 mg PO QDAY Qty: 90 6RF ciprofloxacin HCl 500 mg tablet 500 mg PO BID Qty: 10 0RF zolpidem [Ambien CR] 12.5 mg Tablet,Ext Release Multiphase 12.5 mg PO HS Rinvoq 15 mg tablet extended release 24 hr 15 mg PO QDAY methocarbamol 750 mg tablet 750 mg PO Q8H PRN (Reason: Muscle Pain) Patient Comments: TAKE 1 TABLET BY MOUTH EVERY 8 HOURS NEEDED 15 DAYS gabapentin 300 mg capsule 300 mg PO TID hydrocodone-acetaminophen 5-325 mg tablet 1 tab PO BID MDD 2 PRN (Reason: pain) Qty: 10 0RF alum-mag hydroxide-simeth [Mag-Al Plus] 200-200-20 mg/5 mL Suspension 30 ml PO Q4HR PRN (Reason: Upset Stomach/Indigestion) Qty: 3000 0RF propranolol 10 mg Tablet 10 mg PO TID Qty: 30 0RF Referrals: Corazon Hermosillo MD [Primary Care Provider] - In 1 week Problem List Clinical Impression: Community acquired pneumonia, Confusion Patient/Caregiver Discharge Instructions Print Language: Lithuanian Stand Alone Forms: Brenda Award Info., Patient Portal Info Letter MDM Narrative MDM hospital course: Patient was seen and evaluated upon arrival by myself. Diagnostic labs and imaging were ordered. Patient had a CT abdomen/pelvis on 06/04/2025 that showed a left subphrenic abscess measuring 19 mm. Sepsis alert was called around 1355 and blood cultures were collected prior to starting IV antibiotics. Patient received IV fluids according to weight. Labs showed lactic acid of dizziness along with hypomagnesemia and hypokalemia therefore repleted potassium and magnesium. Abdomen/pelvis CT showed left base pneumonia and small left pleural effusion and left subphrenic abscess measuring 14 mm which is smaller than previous CT on 05/2025 17:36: Spoke with IM team for hospital admission. Will set the patient for hospital admission. Case disclosed with Attending Dr. Migdalia Jarrell PGY2 Disclaimer: Even though this this note was dictated by speech recognition and even though it was carefully revised there may still be minor errors in otc clerk due to voice recognition software. Medication Administration(s) Medication Administration History Magnesium Sulfate (Magnesium Sulfate Ivpb) 2 gm in 50 mls @ 25 mls/hr IV X1 ONE Stop: 07/04/25 17:50 Potassium Chloride (Kcl Ivpb) 10 meq in 100 mls @ 100 mls/hr IV Q1H ZAK Stop: 07/04/25 18:50 Ondansetron HCl (Ondansetron Inj 2 Mg/Ml Inj 2 Ml) 4 mg IVP Q6HR PRN PRN Reason: NAUSEA OR VOMITING Stop: 08/03/25 14:02 Discontinued Medications Lactated Ringer's (Lactated Ringers) 1,779 mls @ 1,779 mls/hr 30 ml/kg infuse over 60 min (1779 ml) IV .Q1H ONE Stop: 07/04/25 15:02 Last Admin: 07/04/25 15:40 Dose: 1,779 mls/hr Documented By: ARNOL Piperacillin/Tazobactam/Dextrose (Zosyn) 3.375 gm in 50 mls @ 100 mls/hr IV X1 ONE Stop: 07/04/25 14:32 Last Infusion: 07/04/25 15:27 Dose: Infused Documented By: Admin: 07/04/25 14:57 Dose: 100 mls/hr Documented By: ARNOL Acetaminophen (Ofirmev Inj) 1,000 mg in 100 mls @ 250 mls/hr IV X1 ONE Stop: 07/04/25 14:34 Last Infusion: 07/04/25 15:51 Dose: Infused Documented By: Admin: 07/04/25 14:54 Dose: 250 mls/hr Documented By: ARNOL
--- NOTE | 2025-07-04 14:48 | XR_ITS ---
Examination: CT abdomen with intravenous contrast CT pelvis with intravenous contrast 2-D coronal reconstructions 2-D sagittal reconstructions Date and time of exam:July 04, 2025 1615 hours, comparison June 04, 2025 INDICATIONS: Sepsis alert today. CTDI: vol (mGy) 11.9 DLP: (mGycm) 667 Technique: Multiple axial sections of the abdomen and pelvis have been obtained. 64 slice high-resolution scanner used. 3 mm axial sections have been obtained, post intravenous injection 60 cc [id number] 2-D sagittal, coronal reconstructions obtained. Low dose protocols were performed. One or more of the following dose reduction techniques were used; automated exposure control, adjustment of the mA and/or KV according to patient size, use of iterative reconstruction technique. Findings: Pneumonia left base, small left pleural effusion Small left subphrenic abscess, measuring 14 mm above the spleen No visualized liver lesion Absent gallbladder No common bile duct stones Stable hypodense mass body of the pancreas 11 mm No renal or ureteral calculi, no hydronephrosis Aorta normal size. No bowel obstruction No pericecal inflammatory change Atrophic uterus Urinary bladder intact Prominent osteopenia IMPRESSION: Mild left base pneumonia, small left pleural effusion Small left subphrenic abscess, measuring 14 mm in thickness, above the spleen
[2025-07-04] MEDS: ACETAMINOPHEN IVPB 1,000 MG/100 ML VIAL 250 MG IV (14:54)
[2025-07-04] MEDS: PIPER/TAZO 3.375 GM PREMIX 3.375 GM/50 ML BAG IV ×2 (14:57→22:04)
[2025-07-04 15:11] LABS: Collection Type, Urine Clean Catch
[2025-07-04 15:14] LABS: Basophils # (Auto) 0.0 Thou/mm3 (0.0-0.2); Basophils % (Auto) 0 % (0-2.5); Eosinophils # (Auto) 0.0 Thou/mm3 (0.0-0.5); Eosinophils % (Auto) 0 % (0-10); Hematocrit 36.0 % (36.0-46.0); Hemoglobin 11.6 g/dL (12.0-16.0); Immature Granulocytes Auto 0.05 Thou/mm3 (0.00-0.00); Lymphocytes # (Auto) 1.4 Thou/mm3 (1.0-4.8); Lymphocytes % (Auto) 12 % (10-50); Mean Corpuscular HGB Conc 32.2 g/dl (31.0-37.0); Mean Corpuscular Hemoglobin 32.8 pg (25.0-35.0); Mean Corpuscular Volume 102 fL (80-100); Monocytes # (Auto) 1.0 Thou/mm3 (0.0-0.8); Monocytes % (Auto) 9 % (0-12); Neutrophils # (Auto) 8.5 Thou/mm3 (1.8-7.7); Neutrophils % (Auto) 78 % (37-80); Nucleated Red Blood Cell # 0.00 Thou/mm3 (0.00-0.00); Nucleated Red Blood Cell % 0 /100 WBC (0); Platelet Count 421 Thou/mm3 (140-440); RDW Standard Deviation 63.3 fL (36.4-46.3); Red Blood Count 3.54 Miln/mm3 (4.00-5.20); White Blood Count 10.9 Thou/mm3 (3.6-11.0)
[2025-07-04 15:15] LABS: Lactate (Lactic Acid) 4.8 mMol/L (0.4-2.0)
[2025-07-04 15:17] LABS: INR 1.1 (0.9-1.3); Partial Thromboplastin Time 26.0 Seconds (22.0-36.0); Prothrombin Time 12.4 Seconds (9.0-12.2)
[2025-07-04 15:19] LABS: B-Type Natriuretic Peptide 29 pg/mL (0-100)
[2025-07-04 15:26] LABS: Bilirubin,Urine Negative (Negative); Blood,Urine Negative (Negative); Clarity,Urine Clear (Clear/Hazy); Color,Urine Lt-Yellow (Lt Yel-Yel); Glucose, Urine Negative (Negative); Ketones,Urine Negative (Negative); Leukocyte Esterase,Urine Positive (Negative); Nitrite,Urine Negative (Negative); PH,Urine 6.0 (5.0-7.0); Protein,Urine Negative (Neg - Trace); RBC,Urine 1 /hpf (0-3); Specific Gravity,Urine 1.004 (1.001-1.035); Squamous Epithelial Cell,Urine < 1 /hpf (0-5); Urobilinogen,Urine Negative mg/dL (0.0-1.0); WBC,Urine 6 /hpf (0-5)
[2025-07-04 15:28] LABS: Ammonia < 10 uMol/L (11-32)
[2025-07-04 15:33] LABS: Alanine Aminotransferase 11 U/L (10-49); Albumin, Serum 3.0 gm/dL (3.5-5.0); Albumin/Globulin Ratio 1.2 (1.2-2.2); Alkaline Phosphatase 120 U/L (46-116); Anion Gap 18 (7-16); Aspartate Amino Transferase 14 U/L (0-34); BUN/Creatinine Ratio 6 Ratio (12-20); Bilirubin,Total 0.5 mg/dL (0.3-1.2); Blood Urea Nitrogen 7 mg/dL (9-23); Calcium 9.2 mg/dL (8.3-10.6); Calcium (Corrected) 10.0 mg/dL (8.5-10.1); Carbon Dioxide 19.0 mMol/L (20.0-31.0); Chloride 99 mMol/L (98-107); Creatinine (Component) 1.1 mg/dL (0.6-1.3); Estimated Creatinine Clearance 54.1 mL/min (>60); Free T4 (Free Thyroxine) 2.23 ng/dL (0.89-1.76); Globulin 2.5 gm/dL (2.3-3.5); Glucose 131 mg/dL (74-106); LDH (Lactate Dehydrogenase) 215 U/L (120-246); Lipase 17 U/L (12-53); Magnesium 1.4 mg/dL (1.6-2.6); Osmolality,Calculated 271 (275-295); Phosphorous 2.5 mg/dL (2.4-5.1); Potassium 3.0 mMol/L (3.4-5.1); Procalcitonin 39.90 ng/ml (0.0-0.49); Sodium 136 mMol/L (136-145); Total Protein 5.5 gm/dL (5.7-8.2); Troponin I < 0.020 ng/mL (0.0-0.045); eGFR 59 See Note
[2025-07-04 15:40] LABS: Amphetamine/Methamp Scrn,U Negative (Negative); Barbiturate Screen,Urine Negative (Negative); Benzodiazepines Screen,Urine Positive (Negative); Benzoylecgonine Screen, Ur Negative (Negative); Fentanyl Screen,Urine Negative (Negative); Opiate Screen,Urine Positive (Negative); THC Screen,Urine Negative (Negative)
[2025-07-04] MEDS: RINGERS LACTATED 1779 ML IV (15:40)
[2025-07-04] MEDS: POTASSIUM CHL 10 mEq IVPB 10 MEQ/100 ML BAG 100 MEQ IV ×3 (17:47→19:53)
[2025-07-04] MEDS: Magnesium Sulfate 2 GM Ivpb 2 GM/50 ML BAG IV (17:47)
[2025-07-04 18:04] LABS: Reflex Lactate? Y
[2025-07-04 18:43] LABS: Lactic Acid, 3 HR 3.5 mMol/L (0.4-2.0)
--- NOTE | 2025-07-04 19:02 | ESHP_ITS ---
<Statement entered by Marin Burris MD - 07/20/25 22:28> Patient seen and examined at bedside with resident. Agree with assessment and plan as dictated above. Marin Burris MD <Statement entered by Kemar Merritt MD - 07/06/25 19:38> I have reviewed the note and agree with the resident's assessment & plan with exceptions as below. I have personally reviewed labs, imaging, home meds/prior records, examined the patient, formulated and discussed management plan with the IM team. Pt examined at bedside. Pt coming in for evaluation for AMS, multifactorial at this point. Pt has been followed by Dr Thao, General Surgeon, for management of drain she had for a subphrenic abscess. Pt has been altered, however, sepsis and metabolic causes are working diagonses at this time. Pt found to have pneumonia, however subphrenic abscess 14 mm (decreasing compared to previous scan). Will reach out to surgery to see if there is an intervention to be made, however unlikely due to size. IR drain could be an option, however again, unlikely due to size of abscess. Will initiate broad spectrum abx. Will hold Thyroid medicine at this time as pt was found to have elevated levels of free T4. Repeat hematology and chemistry in AM. #Acute encephalopathy, multifactorial #Sepsis #Pneumonia #Subphrenic abscess #Thyrotoxicosis Kemar Merritt, PGY-2 Internal Medicine Documentation for date of: 07/04/25 HPI History of Present Illness Chief complaint: Altered Mental Status History of present illness: Kari Jalloh is a 55-year-old female with past medical history hypertension, hypothyroidism, rheumatoid arthritis, gastric bypass, perforated gastric jejunostomy status post repair presented with altered mental status. Patient's was at the bedside to help tell the history. stated that patient was in her normal state of health until this morning at 3 AM when he was transferring her to the bathroom and found that she was saying weird things and found her to be confused. states that patient has been been on antibiotics for recurrent UTIs up until about 2 to 3 weeks ago, also stopped wearing adult diapers since then. stated that her blood pressure at home today was 106 systolically. He states that she has had has been very weak and was close to falling multiple times today. States that her thyroid has been checked monthly and was recently changed from 125 mcg to 137 mcg. Patient had a drain that was removed around December and since then has been having it packed to prevent drainage; this last she noticed it could not no longer be packed due to entry point being too small with minimal to no drainage. Patient states she is currently feeling okay. Endorses some back pain and L flank pain. He stated that patient was able to walk around normally before November 2024. Patient endorsed fever earlier today, weight loss of around 100 pounds since November this year, decreased appetite, shortness of breath on exertion, abdominal pain and left flank pain that comes and goes since this morning. Patient denies headache, cough, chest pain, palpitations, nausea, vomiting, diarrhea. Past Medical History: above Surgical History: cholecystectomy, appendectomy, gastric bypass Social History: Lives with ; Denies recent travel hx; Denies history of smoking, denies current alcohol use, denies recreational drug use Current Medications: Per patient/ (will review/adjust with med rec): Prenpro 325, Lisinopril 20 mg q od, Prednisone 12.5 mg, levothyroxine 137 mcg, multivitamin, vit D, claritin Allergies: Sulfa-based antibiotics Prior Hospitalization : Patient was admitted for intractable diarrhea,blood pressure dropped with MAP to the 50s, was admitted to the ICU put on Levophed for septic shock, found to have bowel perforation, had surgical repair gastro jejunostomy with drain placed, was downgraded to the floors, developed new fevers and worsening leukocytosis, was found to have abdominal abscesses, was started on Zosyn, drain was placed for subphrenic abscess which improved, the drain was removed during that hospitalization and was sent to SNF for rehab. ED Course: -Initial vitals included blood pressure of 66/55, pulse 146, respiratory rate 18, temperature 101.3 rectally, oxygen saturation 100 on room air -Labs significant for WBC of 10.9, hemoglobin 11.6, potassium 3.0, bicarb 19.0, alk phos 20, PT 12.4. Lactic acid 4.8, Pro-Denice 39.9, free T42.23 Urinalysis showed leukocyte Estrace positive, 6 white blood cells, U-Tox positive for opiates and benzos. -Imaging included head CT that was negative, chest x-ray showing early pneumonia in the left base, CT abdomen pelvis showing mild left base pneumonia, small left pleural effusion, small left subphrenic abscess 14 mm above spleen (CT from May 2025 showed 8 abscess at 19 mm. -In the ED she was given a Tylenol drip, Zosyn, 1.8 L IV fluids of lactated Ringer's, magnesium sulfate, potassium chloride. -Patient was admitted for sepsis. Surgery was consulted. Review of Systems Review of systems otherwise negative except what is mentioned above. Exam Vital Signs Temp Pulse Resp BP Pulse Ox O2 Del Method 99.7 F 138 H 20 119/67 100 Room Air 07/04/25 15:28 07/04/25 15:28 07/04/25 15:28 07/04/25 15:28 07/04/25 15:07/04/25 15:28 Narrative Exam General: No acute distress; A&Ox3 Skin: Actinic purpura diffusely on upper extremities; Warm, dry, intact, no obvious rash. HENT: NCAT, EOMI, not icteric. External ears normal. Non-tender neck; No rhinorrhea. Dry mucous membranes Cardiovascular: Tachycardic, regular rhythm, no murmur, +S1/S2. Respiratory: Lungs CTAB GI: Soft, nontender, non-distended. Mid-abd surgical scar erythema; drain site is clean dry and intact. No guarding or rebound tenderness. : suprapubic tenderness Extremities: no edema, no cyanosis, no clubbing. Extremity pulses present Neuro: No focal deficits observed. Conversant, moving all extremities. Psychiatric: Cooperative, appropriate affect. Results: Labs 07/09/25 18:02 07/09/25 23:30 Labs: Short CBC 07/04/25 Range/Units 14:51 WBC 10.9 (3.6-11.0) Thou/mm3 Hgb 11.6 L (12.0-16.0) g/dL Hct 36.0 (36.0-46.0) % Plt Count 421 D (140-440) Thou/mm3 BMP 07/04/25 14:51 Sodium 136 Potassium 3.0 L D Chloride 99 Carbon Dioxide 19.0 L BUN 7 L Creatinine 1.1 Glucose 131 H Calcium 9.2 Cardiac Enzymes 07/04/25 Range/Units 14:51 Troponin I < 0.020 (0.0-0.045) ng/mL Liver Function 07/04/25 Range/Units 14:51 Total Bilirubin 0.5 (0.3-1.2) mg/dL AST 14 (0-34) U/L ALT 11 (10-49) U/L Alkaline Phosphatase 120 H (46-116) U/L Albumin 3.0 L (3.5-5.0) gm/dL Urine 07/04/25 Range/Units 14:42 Urine Color Lt-Yellow (Lt Yel-Yel) Urine Clarity Clear (Clear/Hazy) Urine pH 6.0 (5.0-7.0) Ur Specific [place] 1.004 (1.001-1.035) Urine Protein Negative (Neg - Trace) Urine Glucose (UA) Negative (Negative) Quality Measures Quality Measures VTE prophylaxis Medications Home Medications and Allergies Home Medications ?Medication ?Instructions ?Recorded ?Confirmed ?Type montelukast 10 mg tablet 1 tab PO QDAY ##0 05/10/17 0 06/07/25 History (Singulair) albuterol sulfate 90 mcg/actuation 2 inh inhalation Q4 H PRN Wheezing 08/07/23 06/07/25 History aerosol inhaler gabapentin 300 mg capsule 300 mg PO TID 11/22/2406/07 History methocarbamol 750 mg tablet 750 mg PO Q8H PRN Muscle P ain 11/22/24 06/07/25 History upadacitinib 15 mg tablet,extended 15 mg PO QDAY 11/2206/07/25 History release 24 hr (Rinvoq) Held on 11/30/24. Instructions: Resume on 11/30/24. Hold until you see your PCP zolpidem 12.5 mg tablet,extended 12.5 mg PO HS 5 06/07/25 History release,multiphase (Ambien CR) lisinopril 40 mg tablet 40 mg PO QDAY 06/07/2506/07 History Allergies Allergy/AdvReac Type Severity Reaction Status Date / Time sulfamethoxazole Allergy Unknown SERUM Verified 07/04/25 13:29 SICKNESS trimethoprim Allergy Unknown SERUM Verified 07/04/25 13:29 SICKNESS Visit Medications Acetaminophen (Acetaminophen 325 Mg Tablet) 650 mg PO Q6H PRN PRN Reason: Fever >100 or pain 1-3 Stop: 08/03/25 18:32 Hydrocodone Bitart/Acetaminophen (Hydrocodone/Apap 5/325 Tablet) 1 tab PO Q4HR PRN PRN Reason: PAIN SCALE 4-6 (Moderate Stop: 07/09/25 18:32 Heparin Sodium (Porcine) (Heparin Sod Inj 5000 Unit/Ml Vial) 5,000 unit SC Q12H [facility] Stop: 07/18/25 18:44 Sodium Chloride (Ns) 1,000 mls @ 75 mls/hr IV .[id number] [facility] Stop: 08/03/25 18:44 Piperacillin Sod/Tazobactam (Sod 4.5 gm/ Sodium Chloride) 100 mls @ 200 mls/hr IV Q6HR [facility] Stop: 07/11/25 18:37 Vancomycin HCl 1,500 mg/ (Sodium Chloride) 500 mls @ 198 mls/hr IV X1 ONE Stop: 07/04/25 21:31 Morphine Sulfate (Morphine Sulf Inj 10 Mg/Ml Vial) 1 mg IVP Q4H PRN PRN Reason: PAIN SCALE 7-10 (Severe Stop: 07/09/25 18:32 Ondansetron HCl (Ondansetron Inj 2 Mg/Ml Inj 2 Ml) 4 mg IVP Q6HR PRN PRN Reason: NAUSEA OR VOMITING Stop: 08/03/25 14:02 Pantoprazole Sodium (Pantoprazole Inj 40 Mg Vial) 40 mg IVP QDAY [facility] Stop: 08/04/25 08:59 Pharmacy Consult (Vancomycin Pharmacy To Dose 1 Each Each) 1 each IV QDAY [facility] Stop: 08/03/25 18:44 Discontinued Medications Lactated Ringer's (Lactated Ringers) 1,779 mls @ 1,779 mls/hr 30 ml/kg infuse over 60 min (1779 ml) IV .Q1H ONE Stop: 07/04/25 15:02 Last Infusion: 07/04/25 18:31 Dose: Infused Piperacillin/Tazobactam/Dextrose (Zosyn) 3.375 gm in 50 mls @ 100 mls/hr IV X1 ONE Stop: 07/04/25 14:32 Last Infusion: 07/04/25 15:27 Dose: Infused Acetaminophen (Ofirmev Inj) 1,000 mg in 100 mls @ 250 mls/hr IV X1 ONE Stop: 07/04/25 14:34 Last Infusion: 07/04/25 15:51 Dose: Infused Magnesium Sulfate (Magnesium Sulfate Ivpb) 2 gm in 50 mls @ 25 mls/hr IV X1 ONE Stop: 07/04/25 17:50 Last Admin: 07/04/25 17:47 Dose: 25 mls/hr Potassium Chloride (Kcl Ivpb) 10 meq in 100 mls @ 100 mls/hr IV Q1H [facility] Stop: 07/04/25 18:50 Last Admin: 07/04/25 18:50 Dose: 100 mls/hr Assessment & Plan Plan Kari Jalloh is a 55-year-old female with past medical history hypertension, hypothyroidism, rheumatoid arthritis, gastric bypass, perforated gastric jejunostomy status post repair presented with altered mental status, low BP (66/55 -> given fluids, improved), tachycardia, fever, admitted for sepsis. #Sepsis, possibly due to #Community acquired PNA, possibly due to gram + (elevated pro-denice) vs viral vs fungal #Subphrenic abscess #AMS Source not yet identified ? differential includes pulmonary (pneumonia), hyper- thyroid related, urinary, intra-abdominal, or less likely TWIST PACKER given altered mentation. Some concern for septic shock in the setting of fever, initial hypotension, tachycardia, elevated lactate (4.8), and markedly elevated procalcitonin (39.9), wbc 10.9, Free T4 2.23. Patient presents with altered mental status, fever, tachyarrhythmia, and shock physiology. Labs are notable for elevated lactate and procalcitonin, strongly suggestive of sepsis as the primary test driver of hemodynamic instability. CT AP showed Mild left base pneumonia, small left pleural effusion & Small left subphrenic abscess, measuring 14 mm in thickness (previous CT showed abscess at 19 mm), above the spleen. Received 1.8 L IVF bolus, currently on NS IV maintenance @75mls/hr - SOFA score 1 - Abx: Zosyn 4.5 g IV q6hr, Vancomycin 1,500 mg IV x1 (pharmacy dosing after) - trend lactate - f/u blood/urine cultures - Surgery consulted - Wound care Consulted - neuro checks q4h #high anion gap metabolic acidosis Likely due to sepsis and elevated lactic acid, poor perfusion. Lactic acid on admission 4.8; Bicarb 19.0; Anion Gap 18. Given IV fluid bolus 1.8 L -on maintenacne IV fluids -trend lactate #Hx of hypothyroidism. Presented with Free T4 elevated at 2.23; patient was tachycardic to 150s Patient's home medication levothyroxine 137 mcg p.o. daily. Recent dose increase from 125 mcg. Plan: -Hold home levothyroxine now -Free t3/t4, tsh, ordered, f/u #supraventricular tachycardia EKG on admission showed supraventricular tachycardia with rate of 156, prolonged QTc 483. Mag and Potassium repleted -will check mag/phos follow up labs #hypokalemia #hypomagnesemia On admission, Potassium low at 3.0, Magnesium low at 1.4 -repleted, will recheck morning follow up labs. #Hx of hypertension. Home medication lisinopril 20 Mg p.o. every other day. -Will resume Home medication #Hx of rheumatoid arthritis. Patient has long history of rheumatoid arthritis, underwent multiple treatments with methotrexate and other DMARDs, currently on prednisone 12.5 mg. -Will hold for now #Macrocytic anemia. Hgb on admission 11.6, possibly due to folate or b12 deficiency or medication. No signs/symptoms of acute bleeding. -Monitor with daily CBC. -Transfuse pRBC for hemoglobin < 7.0. #hx of gastric bypass, perforated gastric jejunostomy status post repair Erythema noted on abdominal scar area. Previous abscess drain site is clean dry and intact. -will continue to monitor for infection/drainage Hospital Management: Disposition: tele Diet: NPO GI Prophylaxis: Protonix 40 mg IV qd Bowel Prophylaxis: n/a DVT Prophylaxis: Heparin CODE STATUS: FULL CODE Patient plan of care was discussed with the attending physician, Dr. Burris & senior resident Dr. René Moctezuma MD PGY-1 Attending Provider Attestation/Addendum Patient seen and examined at bedside with resident. Agree with assessment and plan as dictated above. Patient with AMS of unclear etiology. Suspect possible infectious etiology however unclear if 2/2 pna or alternative source at this time. Will begin on broad spectrum abx and consult surgery for further evaluation. Marin Burris MD
[2025-07-04] MEDS: SODIUM CHLORIDE 0.9% 1000 ML 1,000 ML 75 ML IV (19:34)
[2025-07-04] MEDS: HEPARIN SOD INJ 5000 UNIT/ML VIAL SC (19:35)
[2025-07-04] MEDS: Vancomycin Inj 1,500 MG in SODIUM CHLORIDE 0.9% 500 ML 500 ML 198 MG IV (19:37)
[2025-07-04] MEDS: HYDROcodone/APAP 5/325 TABLET 1 TAB PO (20:18)
[2025-07-04] MEDS: ONDANSETRON INJ 2 MG/ML INJ 2 ML 4 MG IVP (20:19)
[2025-07-04] MEDS: THIAMINE INJ 100 MG/ML VIAL 2 ML IVP (22:02)
[2025-07-04] MEDS: FOLIC ACID INJ 1 MG/0.2 ML IVP (22:03)
[2025-07-04 22:38] LABS: Lactate (Lactic Acid) 3.8 mMol/L (0.4-2.0)
[2025-07-04] MEDS: RINGERS LACTATED 1000 ML 1,000 ML 999 ML IV (23:49)
[2025-07-05] VITALS (10 sets, daily range): BP systolic 115–144; BP diastolic 66–87; PULSE 101–133; RESP 17–25; TEMP 35.9–36.8; O2SAT 98–100; BMI 24.5; BMI 24.3
--- NOTE | 2025-07-05 00:30 | PC.NURSE ---
MD weaver made aware of patient being restless and pulling on wood pole treater, removed an IV, and trying to get out of bed. avasure already in place. ordered benadryl IV x1
--- NOTE | 2025-07-05 01:28 | PC.NURSE ---
md weaver notified of patient being restless again trying to remove IV and taking front desk monitor off, md ordered bilateral wrist restraints.
[2025-07-05 01:34] LABS: Reflex Lactate? Y
[2025-07-05 01:55] LABS: Lactic Acid, 3 HR 2.5 mMol/L (0.4-2.0)
[2025-07-05] MEDS: PIPER/TAZO 3.375 GM PREMIX 3.375 GM/50 ML BAG IV ×3 (05:05→22:24)
[2025-07-05 06:03] LABS: Lactate (Lactic Acid) 2.4 mMol/L (0.4-2.0)
[2025-07-05 06:12] LABS: Basophils # (Auto) 0.1 Thou/mm3 (0.0-0.2); Basophils % (Auto) 1 % (0-2.5); Eosinophils # (Auto) 0.1 Thou/mm3 (0.0-0.5); Eosinophils % (Auto) 1 % (0-10); Hematocrit 32.7 % (36.0-46.0); Hemoglobin 10.4 g/dL (12.0-16.0); Immature Granulocytes Auto 0.03 Thou/mm3 (0.00-0.00); Lymphocytes # (Auto) 1.4 Thou/mm3 (1.0-4.8); Lymphocytes % (Auto) 18 % (10-50); Mean Corpuscular HGB Conc 31.8 g/dl (31.0-37.0); Mean Corpuscular Hemoglobin 32.9 pg (25.0-35.0); Mean Corpuscular Volume 104 fL (80-100); Monocytes # (Auto) 0.5 Thou/mm3 (0.0-0.8); Monocytes % (Auto) 7 % (0-12); Neutrophils # (Auto) 5.7 Thou/mm3 (1.8-7.7); Neutrophils % (Auto) 74 % (37-80); Nucleated Red Blood Cell # 0.00 Thou/mm3 (0.00-0.00); Nucleated Red Blood Cell % 0 /100 WBC (0); Platelet Count 330 Thou/mm3 (140-440); RDW Standard Deviation 65.2 fL (36.4-46.3); Red Blood Count 3.16 Miln/mm3 (4.00-5.20); White Blood Count 7.8 Thou/mm3 (3.6-11.0)
[2025-07-05 06:31] LABS: INR 1.1 (0.9-1.3); Partial Thromboplastin Time 27.6 Seconds (22.0-36.0); Prothrombin Time 12.2 Seconds (9.0-12.2)
[2025-07-05 07:00] LABS: Alanine Aminotransferase 13 U/L (10-49); Albumin, Serum 2.5 gm/dL (3.5-5.0); Albumin/Globulin Ratio 1.2 (1.2-2.2); Alkaline Phosphatase 104 U/L (46-116); Anion Gap 15 (7-16); Aspartate Amino Transferase 18 U/L (0-34); BUN/Creatinine Ratio 7 Ratio (12-20); Bilirubin,Total 0.5 mg/dL (0.3-1.2); Blood Urea Nitrogen < 5 mg/dL (9-23); Calcium 8.4 mg/dL (8.3-10.6); Calcium (Corrected) 9.6 mg/dL (8.5-10.1); Carbon Dioxide 19.6 mMol/L (20.0-31.0); Cardiac Risk Estimate 2.5 RATIO (3.7-5.6); Chloride 104 mMol/L (98-107); Cholesterol 114 mg/dL (132-200); Creatinine (Component) 0.7 mg/dL (0.6-1.3); Estimated Creatinine Clearance 85.0 mL/min (>60); Free T3 1.5 pg/mL (2.3-4.2); Free T4 (Free Thyroxine) 1.94 ng/dL (0.89-1.76); Globulin 2.1 gm/dL (2.3-3.5); Glucose 68 mg/dL (74-106); HDL Cholesterol 46 mg/dL (40-60); LDL Cholesterol,Calculated 32 mg/dL (0-130); Magnesium 1.6 mg/dL (1.6-2.6); Osmolality,Calculated 272 (275-295); Phosphorous 1.9 mg/dL (2.4-5.1); Potassium 2.8 mMol/L (3.4-5.1); Sodium 139 mMol/L (136-145); Thyroid Stimulating Hormone 0.08 uIU/mL (0.55-4.78); Total Protein 4.6 gm/dL (5.7-8.2); Triglycerides 182 mg/dL (30-150); eGFR > 60 See Note
--- NOTE | 2025-07-05 07:20 | EKG_ITS ---
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
--- NOTE | 2025-07-05 07:20 | PC.NURSE ---
patient's heart rate in on 130's, called dr keith and made aware, new order to get ekg stat.
[2025-07-05 07:21] LABS: Glucose Estimated Average 91 mg/dL (80-131); Hemoglobin A1C 4.8 % Hgb (4.8-6.0)
[2025-07-05] MEDS: NAPH,KPH MBDB 1 PACKET (1.5 GM) 2 PACKET PO (08:03)
[2025-07-05] MEDS: METOPROLOL TARTRATE 25 MG TABLET PO (08:03)
[2025-07-05] MEDS: Magnesium Sulfate 2 GM Ivpb 2 GM/50 ML BAG IV (08:03)
[2025-07-05] MEDS: THIAMINE INJ 100 MG/ML VIAL 2 ML IVP (08:08)
[2025-07-05] MEDS: FOLIC ACID INJ 1 MG/0.2 ML IVP (08:09)
[2025-07-05] MEDS: RINGERS LACTATED 500 ML 500 ML 999 ML IV (08:10)
[2025-07-05 09:03] LABS: Reflex Lactate? Y
[2025-07-05] MEDS: POTASSIUM CHL 10 mEq IVPB 10 MEQ/100 ML BAG 100 MEQ IV ×4 (09:40→14:06)
[2025-07-05] MEDS: DEXTROSE 50%-WATER INJ 50 ML SYRINGE IVP ×2 (09:41→17:40)
[2025-07-05] MEDS: POTASSIUM CHLORIDE 10% 20 MEQ/15 ML UDC 40 MEQ PO (09:52)
[2025-07-05] MEDS: VANCOMYCIN/WATER 1250 MG IVPB 250 ML 120 MG IV ×2 (10:07→22:23)
[2025-07-05] MEDS: HYDROcodone/APAP 5/325 TABLET 1 TAB PO (10:19)
[2025-07-05 10:20] LABS: Lactic Acid, 3 HR 2.9 mMol/L (0.4-2.0)
--- NOTE | 2025-07-05 10:22 | PC.SS ---
Addendum entered and electronically signed by Annia Chisholm [facility] 07/06/25 16:17: [facility] called to advise she was receiving HH RN services and will require a new order upon discharge if resumption of care is desired. Original Note: Kari Jalloh is a 55-year-old female admitted to [facility] for Sepsis. SS conducted bs contact with the pt and her Lebron Jalloh [phone]. Lebron answered on behalf of the pt as pt was with RN and Phlebotomy. Lebron confirmed demographic information. Lebron identifies himself as the pt surrogate decision maker. Pt requires max assist at this time. Pt has a hospital bed, 3in1 BSC, walker and wheelchair. DC options discussed and they wish for pt to return home. If HH recommended they prefer [facility]. Pt PCP is [facility] last visit was about 1 month ago. Pt has a scheduled appointment this week. Pharmacy of choice is [facility] on [address]. Upon DC pt will provide transport. No further needs identified. SS will remain available. DC plan: Home DM: Lebron PCP: [facility]
[2025-07-05] MEDS: MULTIVITAMIN INJ 10 ML in SODIUM CHLORIDE 0.9% 500 ML 500 ML 100 ML IV (10:44)
[2025-07-05] MEDS: ESCITALOPRAM OXALATE 10 MG TABLET PO (11:03)
--- NOTE | 2025-07-05 16:14 | PC.DIETICIAN ---
Addendum entered by Corey Dempsey, RD 07/07/25 13:33: Nutrition prescription (PN) CPN: D20% AA5% at 60 ml/hr with 500 ml 20% lipid 3 times a week (Mon-Wed-Sat). Start at 30 ml/hr for 24 hrs, then 45 ml/hr for 24 hrs, then advance to goal of 60 ml/hr. 1440 ml volume, 72 g AA, 288 g dextrose, 1696 total calories, NPC 1408. GIR=2.7 / LIR=0.6 Original Note: Nutrition recommendations: 1. Regular diet. Snacks between meals (AM and PM). 2. Ensure Plus 240ml BID between meals. 3. Multivitamins/Minerals. 4. Vitamin B12 500-1000mcg daily.
--- NOTE | 2025-07-05 16:39 | PD.SURCONS ---
HPI Consult details History of present illness: 55F with HTN, hypothyroidism, RA, remote history of gastric bypass, with perforated gastrojejunostomy s/p emergent repair 11/2024, course complicated by intraabdominal abscesses, admitted 07/04 after brought her in for altered mental status. He also noted pt had been weak with episodes of falling. In ER pt was noted to have fever up to 101, imaging findings of pneumonia as well as a decrease in size of her chronic left subphrenic abscess from 18 to 14mm Pt has been afebrile today, she reports shoulder pain but no abdominal pain, ate minimally for lunch. Her main complaint is fatigue and she had difficulty opening her eyes as we were conversing PMH: HTN, hypothyroidism, RA PShx: Gastric bypass, cholecystectomy, appendectomy, repair of perforated GJ Meds: No current antiplt or anticoagulation Allergies: Sulfa Review of Systems Review of Systems ROS Unobtainable: All systems reviewed & no additional complaints except as documented Meds Home Medications and Allergies Home Medications ?Medication ?Instructions ?Recorded ?Confirmed ?Type montelukast 10 mg tablet 1 tab PO QDAY ##0 05/10/17 06/07/25 History (Singulair) albuterol sulfate 90 mcg/actuation 2 inh inhalation Q4H PRN Wheezing 08/07/23 06/07/25 History aerosol inhaler gabapentin 300 mg capsule 300 mg PO TID 11/22/24 06/07/25 History methocarbamol 750 mg tablet 750 mg PO Q8H PRN Muscle Pain 11/22/24 06/07/25 History upadacitinib 15 mg tablet,extended 15 mg PO QDAY 11/22/24 06/07/25 History release 24 hr (Rinvoq) Held on 11/30/24. Instructions: Resume on 11/30/24. Hold until you see your PCP zolpidem 12.5 mg tablet,extended 12.5 mg PO HS 11/22/24 06/07/25 History release,multiphase (Ambien CR) lisinopril 40 mg tablet 40 mg PO QDAY 06/07/25 06/07/25 History Allergies Allergy/AdvReac Type Severity Reaction Status Date / Time sulfamethoxazole Allergy Unknown SERUM Verified 07/04/25 13:29 SICKNESS trimethoprim Allergy Unknown SERUM Verified 07/04/25 13:29 SICKNESS Exam Vital Signs Temp Pulse Resp BP Pulse Ox O2 Del Method 97.6 F 128 H 25 H 121/73 100 Room Air 07/05/25 12:00 07/05/25 12:00 07/05/25 12:00 07/05/25 12:00 07/05/25 12:00 07/05/25 12:00 Constitutional Constitutional: no acute distress Routine Respiratory Exam Respiratory: Present no resp distress Routine Abdominal Exam Abdominal: Present soft and wound (midline wound with chronic erythema but no fluctuance, no tenderness or drainage); Absent tenderness or distended Results Results: Laboratory Laboratory results: results reviewed Results: Imaging CT scan - abdomen: report reviewed Assessment & Plan Plan 55F with HTN, hypothyroidism, RA, remote history of gastric bypass, with perforated gastrojejunostomy s/p emergent repair 11/2024, course complicated by intraabdominal abscesses, admitted 07/04 after brought her in for altered mental status. Her abdominal wound is healing well, is not open or fluctuant and the subphrenic abscess noted on CT is smaller compared to previous exams. From my standpoint she does not need any surgical intervention Diet as tolerated Thyroid levels noted, appreciate IM intervention as needed Please contact me with concerns or questions
[2025-07-05] MEDS: HEPARIN SOD INJ 5000 UNIT/ML VIAL SC (17:50)
--- NOTE | 2025-07-05 18:07 | ESPR_ITS ---
<Statement entered by Kemar Merritt MD - 07/06/25 19:59> I have reviewed the note and agree with the resident's assessment & plan with exceptions as below. I have personally reviewed labs, imaging, home meds/prior records, examined the patient, formulated and discussed management plan with the IM team. Pt exmained at bedside today. IR and General surgery will not intervene at this time for management of abscess, recommend to continue with IV abx. Pt continues to be slightly altered, will continue to hold synthroid at this time. Repeat hematology, chemistry and thyroid function studies in AM. Follow up cultures. Will continue to give additional bolus for patient as she continues to be tachycardic, and started metoprolol for patient. Kemar Merritt, PGY-2 Internal Medicine Documentation for date of: 07/05/25 Subjective Subjective Interval history: Overnight patient was put on restraints for pulling on lines. Patient seen and examined at bedside. Vitals and labs reviewed. Patient's at bedside. Patient continues to get confused after talking appropriately for a little bit. Patient denies any other complaints/concerns. Patient denies fever, chest pain, shortness of breath Exam Vital Signs Temp Pulse Resp BP Pulse Ox O2 Del Method 98.3 F 101 H 21 H 118/68 99 Room Air 07/05/25 16:00 07/05/25 16:00 07/05/25 16:00 07/05/25 16:00 07/05/25 16:00 07/05/25 16:00 Narrative Exam General: No acute distress; A&Ox2 Skin: Actinic purpura diffusely on upper extremities; Warm, dry, intact, no obvious rash. HENT: NCAT, EOMI, not icteric. External ears normal. Non-tender neck; No rhinorrhea. Dry mucous membranes Cardiovascular: Tachycardic, regular rhythm, no murmur, +S1/S2. Respiratory: Lungs CTAB GI: Soft, nontender, non-distended. Mid-abd surgical scar erythema; drain site is clean dry and intact. No guarding or rebound tenderness. : suprapubic tenderness Extremities: no edema, no cyanosis, no clubbing. Extremity pulses present Neuro: No focal deficits observed. Conversant, moving all extremities. Psychiatric: Cooperative, appropriate affect. Objective Labs 07/06/25 08:21 07/06/25 08:21 Labs: Laboratory Results - last 24 hr 07/04/25 07/04/25 07/05/25 18:38 22:21 01:46 WBC RBC Hgb Hct MCV MCH MCHC RDW Std Deviation Plt Count Neut % (Auto) Lymph % (Auto) [place] % (Auto) Eos % (Auto) Baso % (Auto) Neut # (Auto) Lymph # (Auto) [place] # (Auto) Eos # (Auto) Baso # (Auto) Immature Gran # (Auto) Absolute Nucleated RBC Immature Gran % Nucleated RBC % PT INR APTT Sodium Potassium Chloride Carbon Dioxide Anion Gap BUN Creatinine Estim Creat Clear Calc eGFR BUN/Creatinine Ratio Glucose Estimated Ave Glu mg/dL Hemoglobin A1c Calculated Osmolality Lactic Acid 3.5 H 3.8 H 2.5 H Calcium Corrected Calcium Phosphorus Magnesium Total Bilirubin AST ALT Alkaline Phosphatase Total Protein Albumin Globulin Albumin/Globulin Ratio Triglycerides Cholesterol LDL Cholesterol, Calc HDL Cholesterol Cholesterol/HDL Ratio TSH Free T4 Free T3 pg/dL 07/05/25 07/05/25 05:49 09:55 WBC 7.8 RBC 3.16 L Hgb 10.4 L Hct 32.7 L MCV 104 H MCH 32.9 MCHC 31.8 RDW Std Deviation 65.2 H Plt Count 330 D Neut % (Auto) 74 Lymph % (Auto) 18 [place] % (Auto) 7 Eos % (Auto) 1 Baso % (Auto) 1 Neut # (Auto) 5.7 Lymph # (Auto) 1.4 [place] # (Auto) 0.5 Eos # (Auto) 0.1 Baso # (Auto) 0.1 Immature Gran # (Auto) 0.03 H Absolute Nucleated RBC 0.00 Immature Gran % 0 Nucleated RBC % 0 PT 12.2 INR 1.1 APTT 27.6 Sodium 139 Potassium 2.8 L Chloride 104 Carbon Dioxide 19.6 L Anion Gap 15 BUN < 5 L Creatinine 0.7 Estim Creat Clear Calc 85.0 eGFR > 60 BUN/Creatinine Ratio 7 L Glucose [address] Glu mg/dL 91 Hemoglobin A1c 4.8 Calculated Osmolality 272 L Lactic Acid 2.4 H 2.9 H Calcium 8.4 Corrected Calcium 9.6 Phosphorus 1.9 L Magnesium 1.6 Total Bilirubin 0.5 AST 18 ALT 13 Alkaline Phosphatase 104 Total Protein 4.6 L Albumin 2.5 L D Globulin 2.1 L Albumin/Globulin Ratio 1.2 Triglycerides 182 H Cholesterol 114 L LDL Cholesterol, Calc 32 HDL Cholesterol 46 Cholesterol/HDL Ratio 2.5 L TSH 0.08 L* Free T4 1.94 H Free T3 pg/dL 1.5 L Quality Measures Quality Measures VTE prophylaxis Assessment & Plan Assessment Current Active Medications: Generic Name Dose Route Start Last Admin Trade Name Freq PRN Reason Stop Dose Admin Acetaminophen 650 mg 07/04/25 18:33 Acetaminophen 325 Mg Tablet PO 08/03/25 18:32 Q6H PRN Fever >100 or pain 1-3 Hydrocodone Bitart/Acetaminophen 1 tab 07/04/25 18:33 07/05/25 10:19 Hydrocodone/Apap 5/325 Tablet PO 07/09/25 18:32 1 tab Q4HR PRN Administration PAIN SCALE 4-6 (Moderate Escitalopram Oxalate 10 mg 07/05/25 11:00 07/05/25 11:03 Escitalopram Oxalate 10 Mg Tablet PO 08/04/25 10:59 10 mg QDAY ZAK Administration Folic Acid 1 mg 07/04/25 20:45 07/05/25 08:09 Folic Acid Inj 1 Mg/0.2 Ml IVP 08/03/25 20:44 1 mg QDAY ZAK Administration Heparin Sodium (Porcine) 5,000 unit 07/04/25 18:45 07/05/25 17:50 Heparin Sod Inj 5000 Unit/Ml Vial SC 07/18/25 18:44 5,000 unit Q12H ZAK Administration Piperacillin/Tazobactam/Dextrose 3.375 gm in 50 mls @ 12.5 mls/hr 07/04/25 22:00 07/05/25 14:09 Zosyn IV 07/11/25 21:59 12.5 mls/hr Q8HR ZAK Administration Protocol Vancomycin HCl 250 mls @ 120 mls/hr 07/05/25 10:00 07/05/25 10:07 Vancomycin/Water 1250 Mg Ivpb IV 07/12/25 09:59 120 mls/hr BID@1000,2200 ZAK Administration Morphine Sulfate 1 mg 07/04/25 18:33 Morphine Sulf Inj 10 Mg/Ml Vial IVP 07/09/25 18:32 Q4H PRN PAIN SCALE 7-10 (Severe Multivitamins 1 tab 07/06/25 09:00 Multivitamins Tablet PO 07/18/25 08:59 QDAY ZAK Ondansetron HCl 4 mg 07/04/25 14:03 07/04/25 20:19 Ondansetron Inj 2 Mg/Ml Inj 2 Ml IVP 08/03/25 14:02 4 mg Q6HR PRN Administration NAUSEA OR VOMITING Pantoprazole Sodium 40 mg 07/05/25 09:00 07/05/25 08:04 Pantoprazole Inj 40 Mg Vial IVP 08/04/25 08:59 40 mg QDAY ZAK Administration Pharmacy Consult 1 each 07/04/25 18:45 07/05/25 10:22 Vancomycin Pharmacy To Dose 1 Each Each IV 08/03/25 18:44 Not Given QDAY ZAK Thiamine HCl 100 mg 07/04/25 20:45 07/05/25 08:08 Thiamine Inj 100 Mg/Ml Vial 2 Ml IVP 08/03/25 20:44 100 mg QDAY ZAK Administration Plan Kari Jalloh is a 55-year-old female with past medical history hypertension, hypothyroidism, rheumatoid arthritis, gastric bypass, perforated gastric jejunostomy status post repair presented with altered mental status, low BP (66/55 -> given fluids, improved), tachycardia, fever, admitted for sepsis. #Sepsis, possibly due to #Community acquired PNA, possibly due to gram + (elevated pro-denice) vs viral vs fungal #Subphrenic abscess #Acute Encephalopathy Source not yet identified ? 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 Some concern for septic shock in the setting of fever, initial hypotension, tachycardia, elevated lactate (4.8), and markedly elevated procalcitonin (39.9), wbc 10.9, Free T4 2.23 on admission. Patient presents with altered mental status, fever, tachyarrhythmia, and shock physiology. Labs are notable for elevated lactate and procalcitonin, strongly suggestive of sepsis as the primary local driver of hemodynamic instability. CT AP showed Mild left base pneumonia, small left pleural effusion & Small left subphrenic abscess, measuring 14 mm in thickness (previous CT showed abscess at 19 mm), above the spleen. Received 1.8 L IVF bolus in ED. SOFA score 1; Lactate 2.5 ->2.4 ->2.9 - Abx: Zosyn 4.5 g IV q6hr, Vancomycin 1,500 mg IV x1 (pharmacy dosing after) - LR maintenance fluids - continue trend lactate - f/u blood/urine cultures - Surgery consulted - Wound care Consulted - neuro checks q4h #high anion gap metabolic acidosis #lactic acidosis Likely due to sepsis and elevated lactic acid, poor perfusion. Lactic acid on admission 4.8; Bicarb 19.0; Anion Gap 18. Given IV fluid bolus 1.8 L Lactate 2.5 ->2.4 ->2.9 -on maintenacne IV fluids -trend lactate #Hx of hypothyroidism. Presented with Free T4 elevated at 2.23; patient was tachycardic to 150s Patient's home medication levothyroxine 137 mcg p.o. daily. Recent dose increase from 125 mcg. 07/05: TSH 0.08, Free t4 1.94 (2.23), Free t3 1.5. Plan: -Hold home levothyroxine now #supraventricular tachycardia EKG on admission showed supraventricular tachycardia with rate of 156, prolonged QTc 483. Mag, Phos, Potassium repleted -will check mag/phos follow up labs #hypokalemia #hypomagnesemia #hypophosphatemia On admission, Potassium low at 3.0, Magnesium low at 1.4 07/05: K 2.8; Phos 1.9 -repleted, will continue to recheck morning follow up labs. #Hx of hypertension. Home medication lisinopril 20 Mg p.o. every other day. -Will resume Home medication #Hx of rheumatoid arthritis. Patient has long history of rheumatoid arthritis, underwent multiple treatments with methotrexate and other DMARDs, currently on prednisone 12.5 mg. -Will hold for now #Macrocytic anemia. Hgb on admission 11.6, possibly due to folate or b12 deficiency or medication. No signs/symptoms of acute bleeding. -Monitor with daily CBC. -Transfuse pRBC for hemoglobin < 7.0. #hx of gastric bypass, perforated gastric jejunostomy status post repair Erythema noted on abdominal scar area. Previous abscess drain site is clean dry and intact. -will continue to monitor for infection/drainage Hospital Management: Disposition: tele Diet: Regular diet w/ snacks between meals GI Prophylaxis: Protonix 40 mg IV qd Bowel Prophylaxis: n/a DVT Prophylaxis: Heparin CODE STATUS: FULL CODE Patient plan of care was discussed with the attending physician, Dr. Magaña & senior resident Dr. René Moctezuma MD PGY-1 Attending Provider Attestation/Addendum I have examined the patient, reviewed labs and imaging findings, discussed the case with the resident(s), and reviewed entered orders. I agree with the plan of care as outlined in this note, with these additional summaries/recommendations: Patient seen at bedside. No acute overnight events. Patient remains encephalopathic this morning. Encephalopathy most likely multifactorial secondary to metabolic plus infectious plus possibly toxic etiology. Continue IV antibiotics for bacterial community-acquired pneumonia most likely secondary to gram-negative rods. CT abdomen pelvis on admission did reveal subphrenic abscess which is decreased in size compared to previously. Patient follows general surgery outpatient and case was discussed with no need for surgical intervention at this time. Follow-up culture results when available. Patient was also found to have high anion gap metabolic acidosis and electrolyte abnormalities which are being corrected and we will monitor for resolution. Patient has history of hypothyroidism on levothyroxine. On admission TSH is 0.08 and we will hold levothyroxine for now. Repeat thyroid studies tomorrow. Lactic acidosis secondary to sepsis resolving. Patient takes daily prednisone chronically for rheumatoid arthritis which has been weaned down since last hospitalization. Patient now down to 5 mg prednisone daily which we will hold for 1 more day in the setting of acute infection. EMR reveals last steroid prescription was prescribed on 03/17/2025 and although patient's is adamant patient is taking. Please see residents note for additional details of management. Dr. Archana MD
[2025-07-05] MEDS: RINGERS LACTATED 1000 ML 1,000 ML 110 ML IV (19:46)
[2025-07-05 21:00] LABS: Albumin, Serum 2.3 gm/dL (3.5-5.0); Anion Gap 15 (7-16); BUN/Creatinine Ratio 7 Ratio (12-20); Blood Urea Nitrogen < 5 mg/dL (9-23); Calcium 7.6 mg/dL (8.3-10.6); Calcium (Corrected) 9.0 mg/dL (8.5-10.1); Carbon Dioxide 17.9 mMol/L (20.0-31.0); Chloride 109 mMol/L (98-107); Creatinine (Component) 0.7 mg/dL (0.6-1.3); Estimated Creatinine Clearance 85.0 mL/min (>60); Glucose 73 mg/dL (74-106); Magnesium 1.9 mg/dL (1.6-2.6); Osmolality,Calculated 279 (275-295); Phosphorous 1.7 mg/dL (2.4-5.1); Potassium 3.2 mMol/L (3.4-5.1); Sodium 142 mMol/L (136-145); eGFR > 60 See Note
[2025-07-06] VITALS (7 sets, daily range): BP systolic 107–141; BP diastolic 59–98; PULSE 122–135; RESP 16–24; TEMP 36.1–36.6; O2SAT 97–100; BMI 25.4
--- NOTE | 2025-07-06 00:45 | PC.NURSE ---
Did a random bedside blood glucose check due to low levels during AM shift. BS=58; no S/Sx of hypoglycemia, Pt no c/o any dizziness of discomfort however, Pt refused to drink juice or eat something when offered earlier. Dr. Antunez was made aware. No new orders received except to try to feed patient again.
[2025-07-06] MEDS: PIPER/TAZO 3.375 GM PREMIX 3.375 GM/50 ML BAG IV ×3 (06:05→21:26)
[2025-07-06] MEDS: HEPARIN SOD INJ 5000 UNIT/ML VIAL SC ×2 (06:07→20:26)
[2025-07-06 08:37] LABS: Lactate (Lactic Acid) 3.1 mMol/L (0.4-2.0)
[2025-07-06 08:59] LABS: Basophils # (Auto) 0.1 Thou/mm3 (0.0-0.2); Basophils % (Auto) 1 % (0-2.5); Eosinophils # (Auto) 0.1 Thou/mm3 (0.0-0.5); Eosinophils % (Auto) 1 % (0-10); Hematocrit 33.5 % (36.0-46.0); Hemoglobin 10.7 g/dL (12.0-16.0); Immature Granulocytes Auto 0.04 Thou/mm3 (0.00-0.00); Lymphocytes # (Auto) 1.3 Thou/mm3 (1.0-4.8); Lymphocytes % (Auto) 16 % (10-50); Mean Corpuscular HGB Conc 31.9 g/dl (31.0-37.0); Mean Corpuscular Hemoglobin 32.2 pg (25.0-35.0); Mean Corpuscular Volume 101 fL (80-100); Monocytes # (Auto) 0.7 Thou/mm3 (0.0-0.8); Monocytes % (Auto) 9 % (0-12); Neutrophils # (Auto) 5.6 Thou/mm3 (1.8-7.7); Neutrophils % (Auto) 73 % (37-80); Nucleated Red Blood Cell # 0.00 Thou/mm3 (0.00-0.00); Nucleated Red Blood Cell % 0 /100 WBC (0); Platelet Count 319 Thou/mm3 (140-440); RDW Standard Deviation 62.9 fL (36.4-46.3); Red Blood Count 3.32 Miln/mm3 (4.00-5.20); White Blood Count 7.7 Thou/mm3 (3.6-11.0)
[2025-07-06 09:11] LABS: Alanine Aminotransferase 20 U/L (10-49); Albumin, Serum 2.4 gm/dL (3.5-5.0); Albumin/Globulin Ratio 1.1 (1.2-2.2); Alkaline Phosphatase 117 U/L (46-116); Anion Gap 16 (7-16); Aspartate Amino Transferase 37 U/L (0-34); BUN/Creatinine Ratio 8 Ratio (12-20); Bilirubin,Total 0.5 mg/dL (0.3-1.2); Blood Urea Nitrogen < 5 mg/dL (9-23); Calcium 7.6 mg/dL (8.3-10.6); Calcium (Corrected) 8.9 mg/dL (8.5-10.1); Carbon Dioxide 17.5 mMol/L (20.0-31.0); Chloride 108 mMol/L (98-107); Creatinine (Component) 0.6 mg/dL (0.6-1.3); Estimated Creatinine Clearance 107.6 mL/min (>60); Globulin 2.2 gm/dL (2.3-3.5); Glucose 88 mg/dL (74-106); Magnesium 1.4 mg/dL (1.6-2.6); Osmolality,Calculated 277 (275-295); Phosphorous 1.8 mg/dL (2.4-5.1); Potassium 3.1 mMol/L (3.4-5.1); Sodium 141 mMol/L (136-145); Total Protein 4.6 gm/dL (5.7-8.2); Vancomycin,Trough 36.2 mcg/mL (5.0-10.0); eGFR > 60 See Note
[2025-07-06] MEDS: FOLIC ACID INJ 1 MG/0.2 ML IVP (10:32)
[2025-07-06] MEDS: THIAMINE INJ 100 MG/ML VIAL 2 ML IVP (10:35)
[2025-07-06] MEDS: MULTIVITAMINS TABLET 1 TAB PO (10:35)
[2025-07-06] MEDS: ESCITALOPRAM OXALATE 10 MG TABLET PO (10:36)
[2025-07-06 11:32] LABS: Reflex Lactate? Y
[2025-07-06] MEDS: POT PHOS 15 mMol in NS 250 ML 15 MMOL/250 ML BAG 62.5 MMOL IV (12:49)
[2025-07-06] MEDS: MIRTAZAPINE 15 MG TABLET PO (12:49)
[2025-07-06] MEDS: Magnesium Sulfate 2 GM Ivpb 2 GM/50 ML BAG IV (12:49)
--- NOTE | 2025-07-06 13:06 | PC.SS ---
Rounding: On IV ABX, no anticipated DC
--- NOTE | 2025-07-06 13:27 | ESPR_ITS ---
<Statement entered by Rashid Becerra MD - 07/07/25 14:28> Patient was seen and examined at bedside, I agree on most of the assessment and plan on this note. - Patient's plan and care discussed with my attending, Dr. Cassie Becerra MD Internal Medicine PGY-3 Documentation for date of: 07/06/25 Subjective Subjective Interval history: No acute events overnight. Patient seen and examined at bedside. Vitals and labs reviewed. Patient continues to have episodes of confusion that come and go. Patient denies any complaints/concerns. Patient denies fever, chest pain, shortness of breath Exam Vital Signs Temp Pulse Resp BP Pulse Ox O2 Del Method 97.3 F 130 H 19 115/84 98 Room Air 07/06/25 12:00 07/06/25 12:00 07/06/25 12:00 07/06/25 12:00 07/06/25 12:00 07/06/25 12:00 Narrative Exam General: No acute distress; A&Ox2 Skin: Actinic purpura diffusely on upper extremities; Warm, dry, intact, no obvious rash. HENT: NCAT, EOMI, not icteric. External ears normal. Non-tender neck; No rhinorrhea. Dry mucous membranes Cardiovascular: Tachycardic, regular rhythm, no murmur, +S1/S2. Respiratory: Lungs CTAB GI: Soft, RUQ tenderness, non-distended. Mid-abd surgical scar erythema; drain site is clean dry and intact. No guarding or rebound tenderness. : suprapubic tenderness Extremities: no edema, no cyanosis, no clubbing. Extremity pulses present Neuro: No focal deficits observed. Conversant, moving all extremities. Psychiatric: Cooperative, appropriate affect. Objective Labs 07/07/25 05:03 07/07/25 05:03 Labs: Laboratory Results - last 24 hr 07/05/25 07/06/25 20:00 08:21 WBC 7.7 RBC 3.32 L Hgb 10.7 L Hct 33.5 L MCV 101 H MCH 32.2 MCHC 31.9 RDW Std Deviation 62.9 H Plt Count 319 Neut % (Auto) 73 Lymph % (Auto) 16 [place] % (Auto) 9 Eos % (Auto) 1 Baso % (Auto) 1 Neut # (Auto) 5.6 Lymph # (Auto) 1.3 [place] # (Auto) 0.7 Eos # (Auto) 0.1 Baso # (Auto) 0.1 Immature Gran # (Auto) 0.04 H Absolute Nucleated RBC 0.00 Immature Gran % 1 H Nucleated RBC % 0 Sodium 142 141 Potassium 3.2 L 3.1 L Chloride 109 H 108 H Carbon Dioxide 17.9 L 17.5 L Anion Gap 15 16 BUN < 5 L < 5 L Creatinine 0.7 0.6 Estim Creat Clear Calc 85.0 107.6 eGFR > 60 > 60 BUN/Creatinine Ratio 7 L 8 L Glucose 73 L 88 Calculated Osmolality 279 277 Lactic Acid 3.1 H Calcium 7.6 L 7.6 L Corrected Calcium 9.0 8.9 Phosphorus 1.7 L 1.8 L Magnesium 1.9 1.4 L Total Bilirubin 0.5 AST 37 H ALT 20 Alkaline Phosphatase 117 H Total Protein 4.6 L Albumin 2.3 L 2.4 L Globulin 2.2 L Albumin/Globulin Ratio 1.1 L Vancomycin Trough 36.2 H* Quality Measures Quality Measures VTE prophylaxis Assessment & Plan Assessment Current Active Medications: Generic Name Dose Route Start Last Admin Trade Name Freq PRN Reason Stop Dose Admin Acetaminophen 650 mg 07/04/25 18:33 Acetaminophen 325 Mg Tablet PO 08/03/25 18:32 Q6H PRN Fever >100 or pain 1-3 Hydrocodone Bitart/Acetaminophen 1 tab 07/04/25 18:33 07/05/25 10:19 Hydrocodone/Apap 5/325 Tablet PO 07/09/25 18:32 1 tab Q4HR PRN Administration PAIN SCALE 4-6 (Moderate Folic Acid 1 mg 07/04/25 20:45 07/06/25 10:32 Folic Acid Inj 1 Mg/0.2 Ml IVP 08/03/25 20:44 1 mg QDAY ZAK Administration Heparin Sodium (Porcine) 5,000 unit 07/04/25 18:45 07/06/25 06:07 Heparin Sod Inj 5000 Unit/Ml Vial SC 07/18/25 18:44 5,000 unit Q12H ZAK Administration Piperacillin/Tazobactam/Dextrose 3.375 gm in 50 mls @ 12.5 mls/hr 07/04/25 22:00 07/06/25 06:05 Zosyn IV 07/11/25 21:59 12.5 mls/hr Q8HR ZAK Administration Protocol Potassium Phosphate 15 mmol in 250 mls @ 62.5 mls/hr 07/06/25 10:41 07/06/25 12:49 Pot Phos 15 Mmol In Ns 250 Ml IV 07/06/25 14:40 62.5 mls/hr X1 ONE Administration Mirtazapine 15 mg 07/06/25 12:30 07/06/25 12:49 Mirtazapine 15 Mg Tablet PO 08/05/25 12:29 15 mg QDAY ZAK Administration Morphine Sulfate 1 mg 07/04/25 18:33 Morphine Sulf Inj 10 Mg/Ml Vial IVP 07/09/25 18:32 Q4H PRN PAIN SCALE 7-10 (Severe Multivitamins 1 tab 07/06/25 09:00 07/06/25 10:35 Multivitamins Tablet PO 07/18/25 08:59 1 tab QDAY ZAK Administration Ondansetron HCl 4 mg 07/04/25 14:03 07/04/25 20:19 Ondansetron Inj 2 Mg/Ml Inj 2 Ml IVP 08/03/25 14:02 4 mg Q6HR PRN Administration NAUSEA OR VOMITING Pantoprazole Sodium 40 mg 07/05/25 09:00 07/06/25 10:35 Pantoprazole Inj 40 Mg Vial IVP 08/04/25 08:59 40 mg QDAY ZAK Administration Pharmacy Consult 1 each 07/04/25 18:45 07/06/25 12:30 Vancomycin Pharmacy To Dose 1 Each Each IV 08/03/25 18:44 Not Given QDAY ZAK Thiamine HCl 100 mg 07/04/25 20:45 07/06/25 10:35 Thiamine Inj 100 Mg/Ml Vial 2 Ml IVP 08/03/25 20:44 100 mg QDAY ZAK Administration Plan Kari Jalloh is a 55-year-old female with past medical history hypertension, hypothyroidism, rheumatoid arthritis, gastric bypass, perforated gastric jejunostomy status post repair presented with altered mental status, low BP (66/55 -> given fluids, improved), tachycardia, fever, admitted for sepsis. #Sepsis, possibly due to #Community acquired PNA, possibly due to gram + (elevated pro-denice) vs viral vs fungal #Subphrenic abscess #lactic acidosis Source not yet identified ? 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 Some concern for septic shock in the setting of fever, initial hypotension, tachycardia, elevated lactate (4.8), and markedly elevated procalcitonin (39.9), wbc 10.9, Free T4 2.23 on admission. Patient presents with altered mental status, fever, tachyarrhythmia, and shock physiology. 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 CT AP showed Mild left base pneumonia, small left pleural effusion & Small left subphrenic abscess, measuring 14 mm in thickness (previous CT showed abscess at 19 mm), above the spleen. Received 1.8 L IVF bolus in ED. SOFA score 1 07/06: Lactate 4.0 (2.9) - Abx: Zosyn 4.5 g IV q6hr, Vancomycin 1,500 mg IV x1 (pharmacy dosing after) - Gave 500 ml D5 bolus - Ordered D5/NS maintenance fluids - continue trend lactate - f/u blood/urine cultures - Surgery consulted - Wound care Consulted - neuro checks q4h #Acute Encephalopathy #Hx of hypothyroidism, presenting with hyper #Starvation ketoacidosis Acute Encephalopathy likely multifactorial involving suspected starvation ketoacidosis given electrolyte abnormalities, decreased bicarb, low glucose levels, poor po intake. Possibly also due to recent increase in levothyroxine from 125 mcg to 137 mcg. Free T4 elevated at 2.23; patient was tachycardic to 150s Patient's home medication levothyroxine 137 mcg p.o. daily. 07/05: TSH 0.08, Free t4 1.94 (2.23), Free t3 1.5. Plan: -Continue to hold home levothyroxine now. -Started Mirtazapine 7.5 mg po q day -Gave 500 ml D5 bolus -Ordered D5/NS maintenance fluids -On regular diet, ensure, snacks between meals. #supraventricular tachycardia EKG on admission showed supraventricular tachycardia with rate of 156, prolonged QTc 483. Mag, Phos, Potassium repleted -will check mag/phos follow up labs #hypokalemia #hypomagnesemia #hypophosphatemia On admission, Potassium low at 3.0, Magnesium low at 1.4 Patient has poor appetite and poor oral intake, probably contributing On regular diet, ensure, snacks between meals. 07/05: K 2.8; Phos 1.9 07/06: K 3.1, Phos 1.8, Mag 1.4 -repleted, will continue to recheck morning follow up labs. #high anion gap metabolic acidosis, improving Likely due to sepsis and elevated lactic acid, poor perfusion. Lactic acid on admission 4.8; Bicarb 19.0; Anion Gap 18. Given IV fluid bolus 1.8 L 07/06: Lactate up to 4.0 -on maintenance IV fluids #Hx of hypertension. Home medication lisinopril 20 Mg p.o. every other day. -Will resume Home medication #Hx of rheumatoid arthritis. Patient has long history of rheumatoid arthritis, underwent multiple treatments with methotrexate and other DMARDs, currently on prednisone 12.5 mg. -Will hold for now #Macrocytic anemia. Hgb on admission 11.6, possibly due to folate or b12 deficiency or medication. No signs/symptoms of acute bleeding. -Monitor with daily CBC. -Transfuse pRBC for hemoglobin < 7.0. #hx of gastric bypass, perforated gastric jejunostomy status post repair Erythema noted on abdominal scar area. Previous abscess drain site is clean dry and intact. -will continue to monitor for infection/drainage Hospital Management: Disposition: tele Diet: Regular diet w/ snacks between meals GI Prophylaxis: Protonix 40 mg IV qd Bowel Prophylaxis: n/a DVT Prophylaxis: Heparin CODE STATUS: FULL CODE Patient plan of care was discussed with the attending physician, Dr. Matthews & senior resident Dr. Mariam Moctezuma MD PGY-1 Attending Provider Attestation/Addendum I have discussed and was present for the essential components of the history, physical examination, diagnosis, and treatment plan with the resident. I agree with the patient's care as documented by the resident and amended herein by me. Chet Matthews DO. Although this document has been carefully reviewed, there may still be some phonetic and other typographical errors. These errors are purely grammatical due to imperfections in the software program and should not be construed in any way to compromise the substance of the patient's medical care during this visit.
[2025-07-06 14:50] LABS: Lactic Acid, 3 HR 4.0 mMol/L (0.4-2.0)
[2025-07-06] MEDS: POTASSIUM CHL 10 mEq IVPB 10 MEQ/100 ML BAG 50 MEQ IV ×4 (17:29→23:26)
[2025-07-06] MEDS: SODIUM CHLORIDE 0.9% 1000 ML 1,000 ML 500 ML IV (18:06)
[2025-07-06] MEDS: DEXTROSE 5%-NS 1,000 ML 100 ML IV (20:26)
[2025-07-06] MEDS: HYDROcodone/APAP 5/325 TABLET 1 TAB PO (20:26)
[2025-07-06 21:20] LABS: Lactate (Lactic Acid) 3.8 mMol/L (0.4-2.0)
[2025-07-07] VITALS: BP 147/81; PULSE 121; RESP 22; TEMP 35.9; O2SAT 99
[2025-07-07 00:16] LABS: Reflex Lactate? Y
[2025-07-07 01:08] LABS: Lactic Acid, 3 HR 3.6 mMol/L (0.4-2.0)
[2025-07-07 04:00] VITALS: BP 134/84; PULSE 123; PULSE 125; RESP 25; TEMP 35.9; O2SAT 100
[2025-07-07] MEDS: PIPER/TAZO 3.375 GM PREMIX 3.375 GM/50 ML BAG IV ×3 (05:10→22:09)
[2025-07-07 05:23] VITALS: BMI 25.9
[2025-07-07 06:02] LABS: Basophils # (Auto) 0.0 Thou/mm3 (0.0-0.2); Basophils % (Auto) 1 % (0-2.5); Eosinophils # (Auto) 0.1 Thou/mm3 (0.0-0.5); Eosinophils % (Auto) 1 % (0-10); Hematocrit 27.0 % (36.0-46.0); Hemoglobin 8.9 g/dL (12.0-16.0); Immature Granulocytes Auto 0.05 Thou/mm3 (0.00-0.00); Lymphocytes # (Auto) 1.3 Thou/mm3 (1.0-4.8); Lymphocytes % (Auto) 21 % (10-50); Mean Corpuscular HGB Conc 33.0 g/dl (31.0-37.0); Mean Corpuscular Hemoglobin 33.1 pg (25.0-35.0); Mean Corpuscular Volume 100 fL (80-100); Monocytes # (Auto) 0.5 Thou/mm3 (0.0-0.8); Monocytes % (Auto) 7 % (0-12); Neutrophils # (Auto) 4.3 Thou/mm3 (1.8-7.7); Neutrophils % (Auto) 69 % (37-80); Nucleated Red Blood Cell # 0.02 Thou/mm3 (0.00-0.00); Nucleated Red Blood Cell % 0 /100 WBC (0); Platelet Count 237 Thou/mm3 (140-440); RDW Standard Deviation 63.7 fL (36.4-46.3); Red Blood Count 2.69 Miln/mm3 (4.00-5.20); White Blood Count 6.2 Thou/mm3 (3.6-11.0)
[2025-07-07] MEDS: HEPARIN SOD INJ 5000 UNIT/ML VIAL SC (06:03)
[2025-07-07 06:24] LABS: Alanine Aminotransferase 27 U/L (10-49); Albumin, Serum 2.0 gm/dL (3.5-5.0); Albumin/Globulin Ratio 1.1 (1.2-2.2); Alkaline Phosphatase 101 U/L (46-116); Anion Gap 16 (7-16); Aspartate Amino Transferase 37 U/L (0-34); BUN/Creatinine Ratio 8 Ratio (12-20); Bilirubin,Total 0.3 mg/dL (0.3-1.2); Blood Urea Nitrogen < 5 mg/dL (9-23); Calcium (Corrected) 8.3 mg/dL (8.5-10.1); Carbon Dioxide 16.4 mMol/L (20.0-31.0); Chloride 111 mMol/L (98-107); Creatinine (Component) 0.6 mg/dL (0.6-1.3); Estimated Creatinine Clearance 108.6 mL/min (>60); Free T4 (Free Thyroxine) 1.31 ng/dL (0.89-1.76); Globulin 1.9 gm/dL (2.3-3.5); Glucose 110 mg/dL (74-106); Magnesium 1.9 mg/dL (1.6-2.6); Osmolality,Calculated 283 (275-295); Phosphorous 1.6 mg/dL (2.4-5.1); Potassium 3.4 mMol/L (3.4-5.1); Sodium 143 mMol/L (136-145); Thyroid Stimulating Hormone 0.11 uIU/mL (0.55-4.78); Total Protein 3.9 gm/dL (5.7-8.2); Vancomycin,Random 17.5 mcg/mL; eGFR > 60 See Note
[2025-07-07 06:41] LABS: Calcium 6.7 mg/dL (8.3-10.6)
[2025-07-07 08:00] VITALS: BP 135/78; PULSE 126; PULSE 127; RESP 25; TEMP 36.4; O2SAT 100
[2025-07-07] MEDS: SODIUM BICARB INJ 8.4% 1 mEq/ML 50 ML VIAL 50 MEQ IV (09:54)
[2025-07-07] MEDS: FOLIC ACID INJ 1 MG/0.2 ML IVP (09:54)
[2025-07-07] MEDS: THIAMINE INJ 100 MG/ML VIAL 2 ML IVP (09:54)
[2025-07-07] MEDS: HYDROcodone/APAP 5/325 TABLET 1 TAB PO (09:55)
[2025-07-07] MEDS: MULTIVITAMINS TABLET 1 TAB PO (09:55)
[2025-07-07] MEDS: CALCIUM CARBONATE 600 MG TABLET PO (09:55)
[2025-07-07] MEDS: MIRTAZAPINE 15 MG TABLET 7.5 MG PO (09:55)
[2025-07-07] MEDS: DEXTROSE 5%-LACTATED RINGERS 1,000 ML 100 ML IV (11:27)
[2025-07-07 11:40] LABS: Beta Hydroxybutyrate 0.6 mmol/L (<0.6)
[2025-07-07 11:41] LABS: Lactate (Lactic Acid) 4.2 mMol/L (0.4-2.0)
[2025-07-07 12:00] VITALS: BP 131/92; PULSE 126; PULSE 128; RESP 28; TEMP 36.1; O2SAT 99
[2025-07-07] MEDS: DEXTROSE 5%-LACTATED RINGERS 1,000 ML 75 ML IV (13:14)
--- NOTE | 2025-07-07 14:04 | ESPR_ITS ---
<Statement entered by Kemar Merritt MD - 07/07/25 14:26> I have reviewed the note and agree with the resident's assessment & plan with exceptions as below. I have personally reviewed labs, imaging, home meds/prior records, examined the patient, formulated and discussed management plan with the IM team. Pt examined at bedside today. No acute overnight events. Pt reports seeing a dog this morning in her room. HCO3- 16, will give 1 Amp of Bicarbonate, metabolic acidosis likely related to ketones and lactate. Lactic acid still elevated at 3.7, will order repeat. Serum Ketones ordered and borderline elevated at 0.6. We are concerned for starvation ketosis which is a contributing factor to her lethargy and AMS. PICC line planned however, will not able to do complete it today, will continue with D5 infusion at 50 cc/hr. poultry sexer on consult, appreciate recs in addition to PPN recommendations. Pt may need central line if we cannot get PICC line in patient. Will add vancomycin and continue with IV zosyn, pt was MRSA nares positive today. Continue trend lactate, will hold Synthroid as T4 is 1.38 today, downtrending. Repeat hematology and chemistry in AM. Kemar Merritt, PGY-2 Internal Medicine Documentation for date of: 07/07/25 Subjective Subjective Interval history: No acute events overnight. Patient seen and examined at bedside. Vitals and labs reviewed. Patient continues to have episodes of confusion that come and go. Patient denies any complaints/concerns. Patient denies fever, chest pain, shortness of breath Exam Vital Signs Temp Pulse Resp BP Pulse Ox O2 Del Method 97.0 F 128 H 28 H 131/92 H 99 Room Air 07/07/25 12:00 07/07/25 12:00 07/07/25 12:00 07/07/25 12:00 07/07/25 12:07/07/25 12:00 Narrative Exam General: No acute distress; A&Ox2 Skin: Actinic purpura diffusely on upper extremities; Warm, dry, intact, no obvious rash. HENT: NCAT, EOMI, not icteric. External ears normal. Non-tender neck; No rhinorrhea. Dry mucous membranes Cardiovascular: Tachycardic, regular rhythm, no murmur, +S1/S2. Respiratory: Lungs CTAB GI: Soft, RUQ tenderness, non-distended. Mid-abd surgical scar erythema; drain site is clean dry and intact. No guarding or rebound tenderness. : suprapubic tenderness Extremities: no edema, no cyanosis, no clubbing. Extremity pulses present Neuro: No focal deficits observed. Conversant, moving all extremities. Psychiatric: Cooperative, appropriate affect. Objective Labs 07/07/25 05:03 07/07/25 05:03 Labs: Laboratory Results - last 24 hr 07/06/25 07/06/25 07/07/25 14:03 21:11 00:35 WBC RBC Hgb Hct MCV MCH MCHC RDW Std Deviation Plt Count Neut % (Auto) Lymph % (Auto) [place] % (Auto) Eos % (Auto) Baso % (Auto) Neut # (Auto) Lymph # (Auto) [place] # (Auto) Eos # (Auto) Baso # (Auto) Immature Gran # (Auto) Absolute Nucleated RBC Immature Gran % Nucleated RBC % Sodium Potassium Chloride Carbon Dioxide Anion Gap BUN Creatinine Estim Creat Clear Calc eGFR BUN/Creatinine Ratio Glucose Calculated Osmolality Lactic Acid 4.0 H 3.8 H 3.6 H Calcium Corrected Calcium Phosphorus Magnesium Total Bilirubin AST ALT Alkaline Phosphatase Total Protein Albumin Globulin Albumin/Globulin Ratio Beta-Hydroxybutyrate/Acetoacetate TSH Free T4 Random Vancomycin 07/07/25 07/07/25 05:03 11:10 WBC 6.2 RBC 2.69 L Hgb 8.9 L Hct 27.0 L MCV 100 MCH 33.1 MCHC 33.0 RDW Std Deviation 63.7 H Plt Count 237 D Neut % (Auto) 69 Lymph % (Auto) 21 [place] % (Auto) 7 Eos % (Auto) 1 Baso % (Auto) 1 Neut # (Auto) 4.3 Lymph # (Auto) 1.3 [place] # (Auto) 0.5 Eos # (Auto) 0.1 Baso # (Auto) 0.0 Immature Gran # (Auto) 0.05 H Absolute Nucleated RBC 0.02 H Immature Gran % 1 H Nucleated RBC % 0 Sodium 143 Potassium 3.4 Chloride 111 H Carbon Dioxide 16.4 L Anion Gap 16 BUN < 5 L Creatinine 0.6 Estim Creat Clear Calc 108.6 eGFR > 60 BUN/Creatinine Ratio 8 L Glucose 110 H Calculated Osmolality 283 Lactic Acid 4.2 H* Calcium 6.7 L* Corrected Calcium 8.3 L Phosphorus 1.6 L Magnesium 1.9 Total Bilirubin 0.3 AST 37 H ALT 27 Alkaline Phosphatase 101 Total Protein 3.9 L Albumin 2.0 L Globulin 1.9 L Albumin/Globulin Ratio 1.1 L Beta-Hydroxybutyrate/Acetoacetate 0.6 H TSH 0.11 L Free T4 1.31 Random Vancomycin 17.5 Quality Measures Quality Measures VTE prophylaxis Assessment & Plan Assessment Current Active Medications: Generic Name Dose Route Start Last Admin Trade Name Freq PRN Reason Stop Dose Admin Acetaminophen 650 mg 07/04/25 18:33 Acetaminophen 325 Mg Tablet PO 08/03/25 18:32 Q6H PRN Fever >100 or pain 1-3 Hydrocodone Bitart/Acetaminophen 1 tab 07/04/25 18:33 07/07/25 09:55 Hydrocodone/Apap 5/325 Tablet PO 07/09/25 18:32 1 tab Q4HR PRN Administration PAIN SCALE 4-6 (Moderate Folic Acid 1 mg 07/04/25 20:45 07/07/25 09:54 Folic Acid Inj 1 Mg/0.2 Ml IVP 08/03/25 20:44 1 mg QDAY ZAK Administration Heparin Sodium (Porcine) 5,000 unit 07/04/25 18:45 07/07/25 06:03 Heparin Sod Inj 5000 Unit/Ml Vial SC 07/18/25 18:44 5,000 unit Q12H ZAK Administration Piperacillin/Tazobactam/Dextrose 3.375 gm in 50 mls @ 12.5 mls/hr 07/04/25 22:00 07/07/25 05:10 Zosyn IV 07/11/25 21:59 12.5 mls/hr Q8HR ZAK Administration Protocol Dextrose/Lactated Ringer's 1,000 mls @ 75 mls/hr 07/07/25 12:38 07/07/25 13:14 D5-Lr IV 07/08/25 12:37 75 mls/hr .[id number] ZAK Administration Lactated Ringer's 500 mls @ 999 mls/hr 07/07/25 13:55 Lactated Ringers IV 07/07/25 14:25 .Q31M ONE Mirtazapine 7.5 mg 07/07/25 09:00 07/07/25 09:55 Mirtazapine 15 Mg Tablet PO 08/06/25 08:59 7.5 mg QDAY ZAK Administration Morphine Sulfate 1 mg 07/04/25 18:33 Morphine Sulf Inj 10 Mg/Ml Vial IVP 07/09/25 18:32 Q4H PRN PAIN SCALE 7-10 (Severe Multivitamins 1 tab 07/06/25 09:00 07/07/25 09:55 Multivitamins Tablet PO 07/18/25 08:59 1 tab QDAY ZAK Administration Ondansetron HCl 4 mg 07/04/25 14:03 07/04/25 20:19 Ondansetron Inj 2 Mg/Ml Inj 2 Ml IVP 08/03/25 14:02 4 mg Q6HR PRN Administration NAUSEA OR VOMITING Pantoprazole Sodium 40 mg 07/05/25 09:00 07/07/25 09:54 Pantoprazole Inj 40 Mg Vial IVP 08/04/25 08:59 40 mg QDAY ZAK Administration Pharmacy Consult 1 each 07/04/25 18:45 07/07/25 11:21 Vancomycin Pharmacy To Dose 1 Each Each IV 08/03/25 18:44 Not Given QDAY ZAK Thiamine HCl 100 mg 07/04/25 20:45 07/07/25 09:54 Thiamine Inj 100 Mg/Ml Vial 2 Ml IVP 08/03/25 20:44 100 mg QDAY ZAK Administration Plan Kari Jalloh is a 55-year-old female with past medical history hypertension, hypothyroidism, rheumatoid arthritis, gastric bypass, perforated gastric jejunostomy status post repair presented with altered mental status, low BP (66/55 -> given fluids, improved), tachycardia, fever, admitted for sepsis. #Sepsis, possibly due to #Community acquired PNA, possibly due to gram + (elevated pro-denice) vs viral vs fungal #Subphrenic abscess #lactic acidosis Source not yet identified ? 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 Some concern for septic shock in the setting of fever, initial hypotension, tachycardia, elevated lactate (4.8), and markedly elevated procalcitonin (39.9), wbc 10.9, Free T4 2.23 on admission. Patient presents with altered mental status, fever, tachyarrhythmia, and shock physiology. 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 CT AP showed Mild left base pneumonia, small left pleural effusion & Small left subphrenic abscess, measuring 14 mm in thickness (previous CT showed abscess at 19 mm), above the spleen. Received 1.8 L IVF bolus in ED. SOFA score 1 07/06: Lactate 4.0 (2.9), gave 500 NS bolus and started on d5 maintenance fluid 07/07: Lactate still elevated at 4.2 - Abx: Zosyn 4.5 g IV q6hr, Vancomycin 1,500 mg IV x1 (pharmacy dosing after) - Gave Sodium Bicarb 50 ml x2 - Gave LR 500 ml Bolus, on maintenance Dextrose/LR IV fluids - continue trend lactate - f/u blood/urine cultures - Surgery consulted - Wound care Consulted - neuro checks q4h #Acute Encephalopathy #Hx of hypothyroidism, presenting with hyper #Starvation ketoacidosis Acute Encephalopathy likely multifactorial involving suspected starvation ketoacidosis given electrolyte abnormalities, decreased bicarb, low glucose levels, poor po intake. Possibly also due to recent increase in levothyroxine from 125 mcg to 137 mcg. Free T4 elevated at 2.23; patient was tachycardic to 150s Patient's home medication levothyroxine 137 mcg p.o. daily. 07/05: TSH 0.08, Free t4 1.94 (2.23), Free t3 1.5. 07/07: Patient needing better food/fluid intake; will get picc line Plan: -PICC line ordered -Continue to hold home levothyroxine now. -Mirtazapine 7.5 mg po q day -On regular diet, ensure, snacks between meals. #supraventricular tachycardia EKG on admission showed supraventricular tachycardia with rate of 156, prolonged QTc 483. Mag, Phos, Potassium repleted -will check mag/phos follow up labs #hypokalemia #hypomagnesemia #hypophosphatemia #hypocalcemia On admission, Potassium low at 3.0, Magnesium low at 1.4 Patient has poor appetite and poor oral intake, probably contributing along with amount of IV fluid intake causing dilution. On regular diet, ensure, snacks between meals. 07/05: K 2.8; Phos 1.9 07/06: K 3.1, Phos 1.8, Mag 1.4 07/07: K 3.4, Phos 1.6, Mag 1.9, Anirudh Ca 8.3 -repleted, will continue to recheck morning follow up labs. #high anion gap metabolic acidosis, improving Likely due to sepsis and elevated lactic acid, poor perfusion. Lactic acid on admission 4.8; Bicarb 19.0; Anion Gap 18. Given IV fluid bolus 1.8 L 07/06: Lactate up to 4.0 -on maintenance IV fluids #Hx of hypertension. Home medication lisinopril 20 Mg p.o. every other day. -Will resume Home medication #Hx of rheumatoid arthritis. Patient has long history of rheumatoid arthritis, underwent multiple treatments with methotrexate and other DMARDs, currently on prednisone 12.5 mg. -Will hold for now #Macrocytic anemia. Hgb on admission 11.6, possibly due to folate or b12 deficiency or medication. No signs/symptoms of acute bleeding. -Monitor with daily CBC. -Transfuse pRBC for hemoglobin < 7.0. #hx of gastric bypass, perforated gastric jejunostomy status post repair Erythema noted on abdominal scar area. Previous abscess drain site is clean dry and intact. -will continue to monitor for infection/drainage Hospital Management: Disposition: tele Diet: Regular diet w/ snacks between meals GI Prophylaxis: Protonix 40 mg IV qd Bowel Prophylaxis: n/a DVT Prophylaxis: Heparin CODE STATUS: FULL CODE Patient plan of care was discussed with the attending physician, Dr. Matthews & senior resident Dr. René Moctezuma MD PGY-1 Attending Provider Attestation/Addendum I have discussed and was present for the essential components of the history, physical examination, diagnosis, and treatment plan with the resident. I agree with the patient's care as documented by the resident and amended herein by me. Chet Matthews DO. Although this document has been carefully reviewed, there may still be some phonetic and other typographical errors. These errors are purely grammatical due to imperfections in the software program and should not be construed in any way to compromise the substance of the patient's medical care during this visit. Patient seen and evaluated this AM. No acute events overnight however the patient still remains tachycardic and tachypneic and mildly encephalopathic per her at bedside. Blood cultures are negative, lactic acid still elevated at 3.6 which did uptrend to 4.2 today. Phosphorus low at 1.6 today. Patient more acidotic today with a bicarb of 16. Patient's symptoms may be due to refeeding syndrome, unclear I did start the patient on D5 yesterday however may be exacerbating the problem hence I will discontinue today as not to exacerbate any refeeding syndrome. Beta hydroxybutyrate 0.6, probably less likely to starvation keep ptosis as previously thought. Will continue broad-spectrum antibiotics for now, Zosyn for the patient's subphrenic abscess and possible pneumonia. We would like to place a PICC line today and possibly start PPN however the hospital is out of PICC lines, will be unable to do that today. I do not think an NG tube is a good idea at this point, will likely have the same issue she is having with oral intake and that is she can only take a very small amount of the time since her repair of her leaking gastro jejunostomy in November 2024, now complicated with a subphrenic abscess although it is improving. Patient states she is lost approximately 65 pounds since that time. Dietitian is consulted, appreciate recommendations, will continue to introduce protein shakes as tolerated and possible PPN once we get a PICC line and. Will continue to monitor closely, will be very important we pay attention to the patient's electrolytes repleting magnesium, potassium, phosphate and calcium. Patient is already on thiamine 100 mg daily which we will continue. Will continue to monitor closely.
[2025-07-07 14:19] LABS: Base Excess, Venous -5 (-3-3); O2 Saturation, Venous 97 % (96-97); PCO2, Venous 24 mmHg (36-56); PO2, Venous 72 mmHg (15-58); pH, Venous 7.48 (7.33-7.66)
[2025-07-07 14:24] LABS: Reflex Lactate? Y
--- NOTE | 2025-07-07 14:24 | PC.SS ---
Rounding: Pending PICCline on IV ABX and PPN
[2025-07-07 14:33] LABS: Lactic Acid, 3 HR 4.2 mMol/L (0.4-2.0)
[2025-07-07] MEDS: RINGERS LACTATED 500 ML 500 ML 999 ML IV ×2 (15:05→20:33)
[2025-07-07] MEDS: Sodium Bicarb Inj 8.4% SYR 50 ML SYRINGE IV (15:28)
[2025-07-07 16:00] VITALS: BP 116/93; PULSE 129; PULSE 80; RESP 18; TEMP 35.9; O2SAT 100
--- NOTE | 2025-07-07 18:35 | PC.NURSE ---
Per Dr. Merritt, pt only has one working IV running Zosyn at the moment. Lactaid Ringer bolus and Potassium phosphate will be given after zosyn is done. Ok per .
--- NOTE | 2025-07-07 19:15 | PC.NURSE ---
Contacted Dr Pettit critical calcium 6.3 no new orders.
[2025-07-07 19:29] LABS: Albumin, Serum 2.1 gm/dL (3.5-5.0); Anion Gap 16 (7-16); BUN/Creatinine Ratio 8 Ratio (12-20); Blood Urea Nitrogen < 5 mg/dL (9-23); Calcium (Corrected) 7.8 mg/dL (8.5-10.1); Carbon Dioxide 19.0 mMol/L (20.0-31.0); Chloride 108 mMol/L (98-107); Creatinine (Component) 0.6 mg/dL (0.6-1.3); Estimated Creatinine Clearance 108.6 mL/min (>60); Glucose 125 mg/dL (74-106); Magnesium 1.7 mg/dL (1.6-2.6); Osmolality,Calculated 283 (275-295); Phosphorous 1.3 mg/dL (2.4-5.1); Potassium 3.3 mMol/L (3.4-5.1); Sodium 143 mMol/L (136-145); eGFR > 60 See Note
[2025-07-07 19:32] LABS: Calcium 6.3 mg/dL (8.3-10.6)
[2025-07-07 20:00] VITALS: BP 99/58; PULSE 124; PULSE 127; RESP 18; TEMP 36.7; O2SAT 98
--- NOTE | 2025-07-07 20:10 | PC.NURSE ---
contacted Dr Norman of lactic 5.9 critical value no new orders given .
[2025-07-07 20:29] LABS: Lactate (Lactic Acid) 5.9 mMol/L (0.4-2.0)
[2025-07-07] MEDS: CALCIUM GLUCONATE 10% INJ 1 GM/10 ML VIAL IV (20:33)
[2025-07-07] MEDS: POT PHOS 15 mMol in NS 250 ML 15 MMOL/250 ML BAG 62.5 MMOL IV (20:35)
--- NOTE | 2025-07-07 21:30 | PC.NURSE ---
Contacted Dr Norman about the redness and weeping of the arms.Pt only having one IV. patient being difficult patient to get IV. Dr Norman and Dr Magaña at beside and stated that they would have day team decide the need for central line.
[2025-07-07 23:16] LABS: Reflex Lactate? Y
[2025-07-07 23:59] LABS: Lactic Acid, 3 HR 6.0 mMol/L (0.4-2.0)
[2025-07-08] VITALS (60 sets, daily range): BP systolic 92–163; BP diastolic 50–148; PULSE 72–143; RESP 14–46; TEMP 35.9–36.7; O2SAT 83–100; BMI 25.9
[2025-07-08] MEDS: SODIUM CHLORIDE 0.9% 500 ML 500 ML 999 ML IV ×2 (00:21→10:22)
[2025-07-08] MEDS: Magnesium Sulfate 2 GM Ivpb 2 GM/50 ML BAG IV (00:21)
[2025-07-08] MEDS: PIPER/TAZO 3.375 GM PREMIX 3.375 GM/50 ML BAG IV ×2 (05:21→21:19)
[2025-07-08] MEDS: HEPARIN SOD INJ 5000 UNIT/ML VIAL SC ×2 (05:22→19:40)
[2025-07-08 05:55] LABS: Basophils # (Auto) 0.0 Thou/mm3 (0.0-0.2); Basophils % (Auto) 0 % (0-2.5); Eosinophils # (Auto) 0.0 Thou/mm3 (0.0-0.5); Eosinophils % (Auto) 0 % (0-10); Hematocrit 29.4 % (36.0-46.0); Hemoglobin 9.5 g/dL (12.0-16.0); Immature Granulocytes Auto 0.04 Thou/mm3 (0.00-0.00); Lymphocytes # (Auto) 0.7 Thou/mm3 (1.0-4.8); Lymphocytes % (Auto) 9 % (10-50); Mean Corpuscular HGB Conc 32.3 g/dl (31.0-37.0); Mean Corpuscular Hemoglobin 32.2 pg (25.0-35.0); Mean Corpuscular Volume 100 fL (80-100); Monocytes # (Auto) 0.4 Thou/mm3 (0.0-0.8); Monocytes % (Auto) 5 % (0-12); Neutrophils # (Auto) 6.4 Thou/mm3 (1.8-7.7); Neutrophils % (Auto) 84 % (37-80); Nucleated Red Blood Cell # 0.00 Thou/mm3 (0.00-0.00); Nucleated Red Blood Cell % 0 /100 WBC (0); Platelet Count 245 Thou/mm3 (140-440); RDW Standard Deviation 65.0 fL (36.4-46.3); Red Blood Count 2.95 Miln/mm3 (4.00-5.20); White Blood Count 7.6 Thou/mm3 (3.6-11.0)
[2025-07-08] MEDS: DEXTROSE 50%-WATER INJ 50 ML SYRINGE IVP (06:01)
[2025-07-08 06:29] LABS: Alanine Aminotransferase 51 U/L (10-49); Albumin, Serum 2.2 gm/dL (3.5-5.0); Albumin/Globulin Ratio 1.2 (1.2-2.2); Alkaline Phosphatase 123 U/L (46-116); Anion Gap 22 (7-16); Aspartate Amino Transferase 56 U/L (0-34); BUN/Creatinine Ratio 7 Ratio (12-20); Bilirubin,Total 0.5 mg/dL (0.3-1.2); Blood Urea Nitrogen 5 mg/dL (9-23); Calcium (Corrected) 8.2 mg/dL (8.5-10.1); Carbon Dioxide 15.3 mMol/L (20.0-31.0); Chloride 107 mMol/L (98-107); Creatinine (Component) 0.7 mg/dL (0.6-1.3); Estimated Creatinine Clearance 93.1 mL/min (>60); Free T4 (Free Thyroxine) 1.12 ng/dL (0.89-1.76); Globulin 1.9 gm/dL (2.3-3.5); Glucose 87 mg/dL (74-106); Magnesium 1.5 mg/dL (1.6-2.6); Osmolality,Calculated 283 (275-295); Phosphorous 2.2 mg/dL (2.4-5.1); Potassium 3.3 mMol/L (3.4-5.1); Sodium 144 mMol/L (136-145); Thyroid Stimulating Hormone 0.19 uIU/mL (0.55-4.78); Total Protein 4.1 gm/dL (5.7-8.2); eGFR > 60 See Note
--- NOTE | 2025-07-08 06:30 | PC.NURSE ---
Contacted Dr Norman of calcium 6.8 critical value no new orders given
[2025-07-08 06:33] LABS: Calcium 6.8 mg/dL (8.3-10.6)
[2025-07-08 10:09] LABS: Lactate (Lactic Acid) 9.8 mMol/L (0.4-2.0)
--- NOTE | 2025-07-08 10:40 | XR_ITS ---
Examination: Ultrasound-guided needle placement right brachial vein. Dual-lumen central line placement (PICC line). Fluoroscopy AP chest, portable, single view Exam date and time:July 08, 2025, 1353 hours INDICATIONS: Need for long-term intravenous TPN A timeout was completed verifying correct patient, procedure, site, positioning Informed consent provided Technique: The patient's site was prepped and draped in sterile fashion. Maximum Sterile Barrier Technique used including cap, mask, sterile gown, sterile gloves, and sterile full body drape. If ultrasound technique used: sterile gel and sterile probe covers. Hand Hygiene performed using proper scrub, soap and water, or alcohol-based hand rub. Ultrasound [facility]-[employer] portable apparatus utilized to confirm patency of the right brachial vein Utilizing ultrasonographic guidance successful 21-gauge needle puncture right brachial vein Ultrasound images recorded and stored. 5 cc 1% lidocaine administered for local anesthetic. Successful micropuncture with a 21-gauge needle is performed. 0.18 wire guide is then introduced into the SVC under fluoroscopic guidance. Dual-lumen catheter dilator is then introduced, followed by the catheter in the SVC and proper position under fluoroscopic guidance. Successful aspiration of blood and flushing with heparinized saline is then performed in the 2 venous limbs. The catheter sutured in place. Findings: Under fluoroscopy, the tip of the catheter is in good position in the vena cava. Portable chest x-ray, post line placement is ordered. Estimated blood loss 3 cc The patient tolerated the procedure well and was in stable and satisfactory condition at completion of the procedure Impression: Successful ultrasound-guided needle placement right brachial vein Successful placement of dual lumen central line, percutaneous Fluoroscopy 0.7 minute radiation dose 2.27 milligray 1 spot fluoroscopic chest film. AP chest completion procedure demonstrates satisfactory position central line. May use central line.
--- NOTE | 2025-07-08 12:46 | ESPR_ITS ---
<Statement entered by Rashid Becerra MD - 07/09/25 05:17> PAtiente was seen and examined at bedside. I agree on the assessment and plan on this note. - Patient's plan and care discussed with my attending, Dr. Cassie Becerra MD Internal Medicine PGY-3 Documentation for date of: 07/08/25 Subjective Subjective Interval history: No acute events overnight. Patient seen and examined at bedside wit present. Vitals and labs reviewed. was at bedside. Patient was laying in bed, still responding in and communicating, but often gets derailed and starts talking about unrelated subject. Patient endorsed pain on her arms, more so the right arm this morning. Patient denied chest pain or shortness of breath or abdominal pain. Exam Vital Signs Temp Pulse Resp BP Pulse Ox O2 Del Method 96.9 F 135 H 16 92/73 98 Room Air 07/08/25 12:00 07/08/25 12:00 07/08/25 12:00 07/08/25 12:00 07/08/25 12:00 07/08/25 12:00 Narrative Exam General: No acute distress; A&Ox2; Tired appearing, responds promptly but often derails from relevant topic Skin: Actinic purpura diffusely on upper extremities; Warm, dry, intact, no obvious rash. HENT: NCAT, EOMI, not icteric. External ears normal. Non-tender neck; No rhinorrhea. Dry mucous membranes Cardiovascular: Tachycardic, regular rhythm, no murmur, +S1/S2. Respiratory: Lungs CTAB GI: Soft, non-tender, non-distended. Mid-abd surgical scar erythema; drain site is clean dry and intact. No guarding or rebound tenderness. : no suprapubic tenderness Extremities: R upper extremity cold, erythematous, edematous; L upper extremity similar but milder; bilateral LE non-pitting edema; Extremity pulses present Neuro: No focal deficits observed. Conversant/confused, moving all extremities. Psychiatric: Cooperative, appropriate affect. Objective Labs 07/09/25 04:38 07/09/25 17:03 Labs: Laboratory Results - last 24 hr 07/07/25 07/07/25 07/07/25 14:14 18:56 20:09 WBC RBC Hgb Hct MCV MCH MCHC RDW Std Deviation Plt Count Neut % (Auto) Lymph % (Auto) [place] % (Auto) Eos % (Auto) Baso % (Auto) Neut # (Auto) Lymph # (Auto) [place] # (Auto) Eos # (Auto) Baso # (Auto) Immature Gran # (Auto) Absolute Nucleated RBC Immature Gran % Nucleated RBC % VBG pH 7.48 VBG pCO2 24 L VBG pO2 72 H VBG O2 Sat (Eligio) 97 VBG Base Excess -5 L Sodium 143 Potassium 3.3 L Chloride 108 H Carbon Dioxide 19.0 L Anion Gap 16 BUN < 5 L Creatinine 0.6 Estim Creat Clear Calc 108.6 eGFR > 60 BUN/Creatinine Ratio 8 L Glucose 125 H Calculated Osmolality 283 Lactic Acid 4.2 H* 5.9 H* Calcium 6.3 L* Corrected Calcium 7.8 L Phosphorus 1.3 L Magnesium 1.7 Total Bilirubin AST ALT Alkaline Phosphatase Total Protein Albumin 2.1 L Globulin Albumin/Globulin Ratio TSH Free T4 07/07/25 07/08/25 07/08/25 23:36 04:25 09:04 WBC 7.6 RBC 2.95 L Hgb 9.5 L Hct 29.4 L MCV 100 MCH 32.2 MCHC 32.3 RDW Std Deviation 65.0 H Plt Count 245 Neut % (Auto) 84 H Lymph % (Auto) 9 L [place] % (Auto) 5 Eos % (Auto) 0 Baso % (Auto) 0 Neut # (Auto) 6.4 Lymph # (Auto) 0.7 L [place] # (Auto) 0.4 Eos # (Auto) 0.0 Baso # (Auto) 0.0 Immature Gran # (Auto) 0.04 H Absolute Nucleated RBC 0.00 Immature Gran % 1 H Nucleated RBC % 0 VBG pH VBG pCO2 VBG pO2 VBG O2 Sat (Eligio) VBG Base Excess Sodium 144 Potassium 3.3 L Chloride 107 Carbon Dioxide 15.3 L Anion Gap 22 H BUN 5 L Creatinine 0.7 Estim Creat Clear Calc 93.1 eGFR > 60 BUN/Creatinine Ratio 7 L Glucose 87 Calculated Osmolality 283 Lactic Acid 6.0 H* 9.8 H* Calcium 6.8 L* Corrected Calcium 8.2 L Phosphorus 2.2 L Magnesium 1.5 L Total Bilirubin 0.5 AST 56 H ALT 51 H Alkaline Phosphatase 123 H D Total Protein 4.1 L Albumin 2.2 L Globulin 1.9 L Albumin/Globulin Ratio 1.2 TSH 0.19 L Free T4 1.12 ABG Interpretation ABG results: 07/07/25 14:14 VBG pH 7.48 VBG pCO2 24 L VBG pO2 72 H VBG Base Excess -5 L Quality Measures Quality Measures VTE prophylaxis Assessment & Plan Assessment Current Active Medications: Generic Name Dose Route Start Last Admin Trade Name Freq PRN Reason Stop Dose Admin Acetaminophen 650 mg 07/04/25 18:33 Acetaminophen 325 Mg Tablet PO 08/03/25 18:32 Q6H PRN Fever >100 or pain 1-3 Hydrocodone Bitart/Acetaminophen 1 tab 07/04/25 18:33 07/07/25 09:55 Hydrocodone/Apap 5/325 Tablet PO 07/09/25 18:32 1 tab Q4HR PRN Administration PAIN SCALE 4-6 (Moderate Calcium Acetate 667 mg 07/08/25 08:00 07/08/25 10:36 Calcium Acetate 667 Mg Tablet PO 08/07/25 07:59 Not Given TIDWM ZAK Folic Acid 1 mg 07/04/25 20:45 07/07/25 09:54 Folic Acid Inj 1 Mg/0.2 Ml IVP 08/03/25 20:44 1 mg QDAY ZAK Administration Heparin Sodium (Porcine) 5,000 unit 07/04/25 18:45 07/08/25 05:22 Heparin Sod Inj 5000 Unit/Ml Vial SC 07/18/25 18:44 5,000 unit Q12H ZAK Administration Piperacillin/Tazobactam/Dextrose 3.375 gm in 50 mls @ 12.5 mls/hr 07/04/25 22:00 07/08/25 05:21 Zosyn IV 07/11/25 21:59 12.5 mls/hr Q8HR ZAK Administration Protocol Potassium Phosphate 15 mmol in 250 mls @ 62.5 mls/hr 07/08/25 07:37 Pot Phos 15 Mmol In Ns 250 Ml IV 07/08/25 15:36 Q4H ZAK Levothyroxine Sodium 100 mcg 07/08/25 08:10 07/08/25 10:36 Levothyroxine Sodium 100 Mcg Tablet PO 08/07/25 08:09 Not Given ACBR ZAK Mirtazapine 7.5 mg 07/07/25 09:00 07/08/25 10:36 Mirtazapine 15 Mg Tablet PO 08/06/25 08:59 Not Given QDAY ZAK Morphine Sulfate 1 mg 07/04/25 18:33 Morphine Sulf Inj 10 Mg/Ml Vial IVP 07/09/25 18:32 Q4H PRN PAIN SCALE 7-10 (Severe Multivitamins 1 tab 07/06/25 09:00 07/08/25 10:37 Multivitamins Tablet PO 07/18/25 08:59 Not Given QDAY ZAK Niacin 250 mg 07/08/25 12:30 Niacin 500 Mg Tabir PO 08/07/25 12:29 QDAY ZAK Ondansetron HCl 4 mg 07/04/25 14:03 07/04/25 20:19 Ondansetron Inj 2 Mg/Ml Inj 2 Ml IVP 08/03/25 14:02 4 mg Q6HR PRN Administration NAUSEA OR VOMITING Pantoprazole Sodium 40 mg 07/05/25 09:00 07/07/25 09:54 Pantoprazole Inj 40 Mg Vial IVP 08/04/25 08:59 40 mg QDAY ZAK Administration Pyridoxine HCl 100 mg 07/08/25 12:09 Pyridoxine Inj 100 Mg/Ml Vial IM 07/08/25 12:10 X1 ONE Pyridoxine HCl 100 mg 07/09/25 09:00 Pyridoxine Inj 100 Mg/Ml Vial IM 08/08/25 08:59 QDAY ZAK Thiamine HCl 100 mg 07/04/25 20:45 07/07/25 09:54 Thiamine Inj 100 Mg/Ml Vial 2 Ml IVP 08/03/25 20:44 100 mg QDAY ZAK Administration Plan Kari Jalloh is a 55-year-old female with past medical history hypertension, hypothyroidism, rheumatoid arthritis, gastric bypass, perforated gastric jejunostomy status post repair presented with altered mental status, low BP (66/55 -> given fluids, improved), tachycardia, fever, admitted for sepsis. #Sepsis, possibly due to #Community acquired PNA, possibly due to gram + (elevated pro-denice) vs viral vs fungal #Subphrenic abscess #lactic acidosis Source not yet identified ? 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 Some concern for septic shock in the setting of fever, initial hypotension, tachycardia, elevated lactate (4.8), and markedly elevated procalcitonin (39.9), wbc 10.9, Free T4 2.23 on admission. Patient presents with altered mental status, fever, tachyarrhythmia, and shock physiology. Labs are notable for elevated lactate and procalcitonin, strongly suggestive of sepsis as the primary feedmobile driver of hemodynamic instability. CT AP showed Mild left base pneumonia, small left pleural effusion & Small left subphrenic abscess, measuring 14 mm in thickness (previous CT showed abscess at 19 mm), above the spleen. Received 1.8 L IVF bolus in ED. SOFA score 1 07/06: Lactate 4.0 (2.9), gave 500 NS bolus and started on d5 maintenance fluid 07/07: Lactate still elevated at 4.2, Gave Sodium Bicarb 50 ml x2, LR 500 ml Bolus, on maintenance Dextrose/LR IV fluids (discontinued) - GI consulted for possible SIBO - Nephrology consulted for acidosis; plan for hemodialysis today - ICU consulted, Central Line Placed - Abx: Zosyn 3.375 g IV q8hr - Lactic Acidosis rising to 9.8, gave sodium bicarb x2; continue trend lactate - f/u blood/urine cultures - Surgery consulted - Wound care Consulted - neuro checks q4h #Acute Encephalopathy #Hx of hypothyroidism, presenting with hyper #Starvation ketoacidosis Acute Encephalopathy likely multifactorial involving suspected starvation ketoacidosis given electrolyte abnormalities, decreased bicarb, low glucose levels, poor po intake. Possibly also due to recent increase in levothyroxine from 125 mcg to 137 mcg. Free T4 elevated at 2.23; patient was tachycardic to 150s Patient's home medication levothyroxine 137 mcg p.o. daily. 07/05: TSH 0.08, Free t4 1.94 (2.23), Free t3 1.5. 07/07: Patient needing better food/fluid intake; will get picc line Plan: -PICC line placed -Gave Multivitamin infusion, niacin 250 mg po qd, pyridoxine 100 mg x1 & qd, thiamine 100 mg IV qd; f/u B vitamin labs -Continue levothyroxine 100 mcg po acbr -Mirtazapine 7.5 mg po q day -Oral Care prn -On regular diet, ensure, snacks between meals. #supraventricular tachycardia EKG on admission showed supraventricular tachycardia with rate of 156, prolonged QTc 483. Mag, Phos, Potassium repleted -will check mag/phos follow up labs #hypokalemia #hypomagnesemia #hypophosphatemia #hypocalcemia On admission, Potassium low at 3.0, Magnesium low at 1.4 Patient has poor appetite and poor oral intake, probably contributing along with amount of IV fluid intake causing dilution. On regular diet, ensure, snacks between meals. 07/05: K 2.8; Phos 1.9 07/06: K 3.1, Phos 1.8, Mag 1.4 07/07: K 3.4, Phos 1.6, Mag 1.9, Anirudh Ca 8.3 -repleted, will continue to recheck morning follow up labs. #high anion gap metabolic acidosis, improving Likely due to sepsis and elevated lactic acid, poor perfusion. Lactic acid on admission 4.8; Bicarb 19.0; Anion Gap 18. Given IV fluid bolus 1.8 L 07/06: Lactate up to 4.0 -on maintenance IV fluids #Hx of hypertension. Home medication lisinopril 20 Mg p.o. every other day. -Will resume Home medication #Hx of rheumatoid arthritis. Patient has long history of rheumatoid arthritis, underwent multiple treatments with methotrexate and other DMARDs, currently on prednisone 12.5 mg. -Will resume steroid rx #Macrocytic anemia. Hgb on admission 11.6, possibly due to folate or b12 deficiency or medication. No signs/symptoms of acute bleeding. -Monitor with daily CBC. -Transfuse pRBC for hemoglobin < 7.0. #hx of gastric bypass, perforated gastric jejunostomy status post repair Erythema noted on abdominal scar area. Previous abscess drain site is clean dry and intact. -will continue to monitor for infection/drainage Hospital Management: Disposition: tele Diet: Regular diet w/ snacks between meals GI Prophylaxis: Protonix 40 mg IV qd Bowel Prophylaxis: n/a DVT Prophylaxis: Heparin CODE STATUS: FULL CODE Patient plan of care was discussed with the attending physician, Dr. Matthews & senior resident Dr. Mariam Moctezuma MD PGY-1 Attending Provider Attestation/Addendum I have discussed and was present for the essential components of the history, physical examination, diagnosis, and treatment plan with the resident. I agree with the patient's care as documented by the resident and amended herein by me. Chet Matthews DO. Although this document has been carefully reviewed, there may still be some phonetic and other typographical errors. These errors are purely grammatical due to imperfections in the software program and should not be construed in any way to compromise the substance of the patient's medical care during this visit.
[2025-07-08 12:53] LABS: Reflex Lactate? Y
--- NOTE | 2025-07-08 13:15 | XR_ITS ---
Examination: AP chest single view Technique one AP portable upright chest single view Date and time: July 08, 2025, 1350 hours INDICATIONS: Status post temporary dialysis catheter insertion today. 2019 Right internal jugular temporary dialysis catheter SVC satisfactory position Normal heart size Atelectasis in the left lower lung zone Old right-sided rib fractures No pneumothorax IMPRESSION: Right internal jugular dialysis catheter SVC satisfactory position
[2025-07-08 13:34] LABS: Vitamin B12 1130 pg/mL (211-911)
[2025-07-08] MEDS: HEPARIN SOD INJ 1000 UNIT/ML VIAL 10 ML 2600 UNIT INDWELLCAT ×2 (13:44→17:34)
[2025-07-08 14:05] LABS: Lactate (Lactic Acid) 8.6 mMol/L (0.4-2.0)
[2025-07-08 14:09] LABS: Beta Hydroxybutyrate 0.9 mmol/L (<0.6)
[2025-07-08 14:31] LABS: Albumin, Serum 2.0 gm/dL (3.5-5.0); Anion Gap 21 (7-16); BUN/Creatinine Ratio 9 Ratio (12-20); Blood Urea Nitrogen 6 mg/dL (9-23); Calcium (Corrected) 8.4 mg/dL (8.5-10.1); Chloride 110 mMol/L (98-107); Creatine Kinase 317 U/L (34-171); Creatinine (Component) 0.7 mg/dL (0.6-1.3); Estimated Creatinine Clearance 93.1 mL/min (>60); Glucose 103 mg/dL (74-106); Magnesium 1.6 mg/dL (1.6-2.6); Osmolality,Calculated 282 (275-295); Phosphorous 1.9 mg/dL (2.4-5.1); Potassium 3.7 mMol/L (3.4-5.1); Sodium 143 mMol/L (136-145); eGFR > 60 See Note
[2025-07-08 14:34] LABS: Calcium 6.8 mg/dL (8.3-10.6); Carbon Dioxide 11.8 mMol/L (20.0-31.0)
[2025-07-08] MEDS: MORPHINE SULF INJ 10 MG/ML VIAL IVP (14:37)
[2025-07-08] MEDS: HEPARIN SOD LOCK SYR 100 UNIT/ML 500 UNIT STFIELD (14:49)
[2025-07-08] MEDS: LIDOCAINE INJ PF 1% 30 ML VIAL 5 ML EPID (14:49)
[2025-07-08] MEDS: SODIUM CHLORIDE 0.9% 1000 ML 1,000 ML 500 ML IV (16:15)
--- NOTE | 2025-07-08 16:23 | PC.NURSE ---
PT HR ELEVATED MD CHIRINOS NOTIFIED W/ ORDER TO ADMINISTER 1L OF LUID THROUGHOUT TX. EXTRA 100 ML OF NS ADMINISTERED AT THIS TIME.WILL CONT. TO MONITOR
[2025-07-08 16:31] LABS: Lactate (Lactic Acid) 7.6 mMol/L (0.4-2.0)
[2025-07-08 17:00] LABS: Reflex Lactate? Y
--- NOTE | 2025-07-08 17:02 | PD.NEPHCONS ---
History of Present Illness Data of Consult Consult date: 07/08/25 Requesting Physician: Rasheed Matthews DO Primary Care Provider: Corazon Hermosillo MD Consult Narrative Reason for consult: Intractable metabolic acidosis History of present illness: Chart review done. Ms. Jalloh is a 55-year-old lady with extensive past medical history of hypertension, hypothyroidism, rheumatoid arthritis , remote history of gastric bypass, with perforated gastrojejunostomy s/p emergent repair 11/2024, course complicated by intraabdominal abscesses, admitted on 07/04/2025 with altered mental status. Patient apparently had multiple falls prior to her presentation. During hospital course she was noted to have subphrenic abscess. Currently on antibiotics Patient states she is currently feeling tired. . Endorses some back pain and L flank pain. He stated that patient was able to walk around normally before November 2024. Patient endorsed fever earlier today, weight loss of around 100 pounds since November this year, decreased appetite, shortness of breath on exertion, abdominal pain and left flank pain that comes and goes . Patient denies headache, cough, chest pain, palpitations, nausea, vomiting, diarrhea. Patient admitted to the hospital with a diagnosis of sepsis. Of note for the last 24 hours that she was noted to have significant metabolic acidosis and worsening lactic acid (unclear source) and the severe electrolyte imbalance. Nephrology consultation was requested for need for emergency dialysis for lactic acidosis as lactic acid is dialyzable. Patient had a Vas-Cath placed by primary by ICU team and currently on dialysis. Spoke to Dr. Matthews. cc:: cc: Rasheed Matthews DO Review of Systems Review of Systems Narrative Review of Systems: Very fragile. Has decreased p.o. intake. Complaining of back pain and abdominal discomfort. She also seems to have altered level of consciousness. Past Medical History Past Medical History NEUROLOGIC: Negative Neurological Disorders or Seizures CARDIAC: Positive Hypertension; Negative Cardiac Disorders or Congestive Heart Failure RESPIRATORY: Positive Respiratory Disorders; Negative Chronic Obstructive Pulmonary Disease (COPD) or Asthma GASTROINTESTINAL: Positive Gastrointestinal Disorders, Ulcer and Obesity; Negative Hepatitis or Colorectal Cancer GENITOURINARY: Positive Genitourinary Disorders and Kidney Stones; Negative Renal Disease REPRODUCTIVE: Positive Endometriosis; Negative Breast Cancer MUSCULOSKELETAL: Positive Musculoskeletal Disorders and Rheumatoid Arthritis; Negative Bone Cancer ENT: Positive Ear Infection ENDOCRINE: Positive Endocrine Disorders, Hypoglycemia, Hyperthyroidism and Hypothyroidism; Negative Diabetes Mellitus Type 1 or Diabetes Mellitus Type 2 HEMATOLOGIC: Positive Blood Disorders and Anemia; Negative Sickle Cell Disease PSYCHO/SOCIAL: Positive Depression and Anxiety OTHER HISTORY: Positive Autoimmune Disease, Falls and Chicken Pox; Negative Blood Transfusions, Blood Transfusion Reaction, Anesthesia Reactions, Organ Transplant, MRSA, VRSA, Vancomycin-Resistant Enterococci, Breast Cancer, Cervical Cancer, Colorectal Cancer, Lung Cancer or Ovarian Cancer Family History FAMILY HISTORY: Positive Family Cardiac Disorders, Family Surgery and Family Anesthesia Reaction; Negative Family Psychiatric Problems, Family Respiratory Disorders, Family Gastrointestinal Problems or Family Cancer Surgical History SURGICAL: Positive Abdominal Surgery and Gastric Bypass Surgery; Negative Cardiac Surgery, Endocrine Surgery, Ear Surgery, Nephrectomy, Joint Replacement, Neurologic Surgery, Mastectomy, Tubal Ligation or Organ Transplant OTHER SURGICAL HX: As in the history of present illness Social History SMOKING STATUS: Never smoker SUBSTANCE USE: does not use Meds Home Medications and Allergies Home Medications ?Medication ?Instructions ?Recorded ?Confirmed ?Type montelukast 10 mg tablet 1 tab PO QDAY ##0 05/10/17 06/07/25 History (Singulair) albuterol sulfate 90 mcg/actuation 2 inh inhalation Q4H PRN Wheezing 08/07/23 06/07/25 History aerosol inhaler gabapentin 300 mg capsule 300 mg PO TID 11/22/24 06/07/25 History methocarbamol 750 mg tablet 750 mg PO Q8H PRN Muscle Pain 11/22/24 06/07/25 History upadacitinib 15 mg tablet,extended 15 mg PO QDAY 11/22/24 06/07/25 History release 24 hr (Rinvoq) Held on 11/30/24. Instructions: Resume on 11/30/24. Hold until you see your PCP zolpidem 12.5 mg tablet,extended 12.5 mg PO HS 11/22/24 06/07/25 History release,multiphase (Ambien CR) lisinopril 40 mg tablet 40 mg PO QDAY 06/07/25 06/07/25 History Allergies Allergy/AdvReac Type Severity Reaction Status Date / Time sulfamethoxazole Allergy Unknown SERUM Verified 07/04/25 13:29 SICKNESS trimethoprim Allergy Unknown SERUM Verified 07/04/25 13:29 SICKNESS Exam Vital Signs Temp Pulse Resp BP Pulse Ox O2 Del Method O2 Flow Rate 37.2 C 118 H 22 H 103/63 100 Nasal Cannula 2 07/09/25 04:00 07/09/25 05:30 07/09/25 05:30 07/09/25 05:30 07/09/25 05:30 07/08/25 16:00 07/09/25 03:10 Narrative Exam GENERAL APPEARANCE: Patient on dialysis, frail NECK: Neck supple, no JVD or bruit CARDIOVASCULAR: Heart regular, no murmurs LUNGS/CHEST: Chest clear to auscultation. No rales, rhonchi, wheezing ABDOMEN: Soft, nontender, nondistended. No masses. Normal bowel sounds. + s/p sx EXTREMITIES: No edema, clubbing or cyanosis. SKIN: Skin exam normal without any rashes MUSCULOSKELETAL:in bed NEUROLOGICAL : Patient arousable able to move her extremities, ALOC Results Labs 07/09/25 18:02 07/09/25 23:30 Labs: Short CBC 07/08/25 Range/Units 19:08 WBC 7.8 (3.6-11.0) Thou/mm3 Hgb 8.6 L (12.0-16.0) g/dL Hct 25.5 L (36.0-46.0) % Plt Count 189 D (140-440) Thou/mm3 BMP 07/08/25 07/08/25 07/08/25 04:25 11:00 13:45 Sodium 144 Cancelled 143 Potassium 3.3 L Cancelled 3.7 Chloride 107 Cancelled 110 H Carbon Dioxide 15.3 L Cancelled 11.8 L* BUN 5 L Cancelled 6 L Creatinine 0.7 Cancelled 0.7 Glucose 87 Cancelled 103 Calcium 6.8 L* Cancelled 6.8 L* 07/08/25 07/08/25 07/09/25 18:11 19:08 00:48 Sodium 145 144 143 Potassium 3.4 3.2 L 3.7 D Chloride 109 H 107 101 Carbon Dioxide 21.6 19.4 L 25.8 BUN < 5 L < 5 L < 5 L Creatinine 0.4 L 0.5 L 0.6 Glucose 72 L 193 H D 398 H D Calcium 7.8 L 7.5 L 6.4 L* Cardiac Enzymes 07/08/25 Range/Units 13:45 Total Creatine Kinase 317 H (34-171) U/L Liver Function 07/08/25 07/08/25 07/08/25 Range/Units 04:25 11:00 13:45 Total Bilirubin 0.5 (0.3-1.2) mg/dL AST 56 H (0-34) U/L ALT 51 H (10-49) U/L Alkaline Phosphatase 123 H D (46-116) U/L Albumin 2.2 L Cancelled 2.0 L (3.5-5.0) gm/dL 07/08/25 07/08/25 07/09/25 Range/Units 18:11 19:08 00:48 Total Bilirubin 0.5 (0.3-1.2) mg/dL AST 50 H (0-34) U/L ALT 64 H (10-49) U/L Alkaline Phosphatase 115 (46-116) U/L Albumin 1.9 L 1.9 L 2.0 L (3.5-5.0) gm/dL ABG Interpretation ABG results: 07/07/25 14:14 VBG pH 7.48 VBG pCO2 24 L VBG pO2 72 H VBG Base Excess -5 L Assessment & Plan Assessment and plan (1) Metabolic acidosis: Status: Acute Assessment and plan: Patient with intractable metabolic acidosis secondary to rising lactic acid. Etiology of lactic acid still remains unclear. Primary team working on the source. No improvement with bicarbonate drip. Decided to proceed with temporary dialysis. Vas-Cath placed by ICU team patient currently seen on dialysis. Tolerating dialysis without any problems. Hemodialysis for 2 hours, 3K, 40 bicarbonate, ultrafiltration 0, Epogen 6000, no heparin ordered. Plan of care discussed with the dialysis nurse. Please see dialysis flowsheet for further details. (2) Electrolyte imbalance: Status: Acute Assessment and plan: Replace electrolytes (3) Confusion: Status: Acute Assessment and plan: Probably from underlying sepsis. (4) Community acquired pneumonia: Status: Acute Assessment and plan: On broad-spectrum antibiotics (5) Lactic acidosis: Status: Acute Assessment and plan: From underlying sepsis most likely Additional Assessment & Plan Additional Plan: Thank you Chet for allowing me to participate in the care of Ms. Jalloh
--- NOTE | 2025-07-08 17:42 | PD.INTPROC ---
PROCEDURES: Procedure Date / Time 07/08/25 12:15 Procedure Narrative Procedure Narrative: Attending Attestation: I was present for entire procedure. No immediate complications. Minimal blood loss. Follow up chest film with no post procedure PTX and catheter tip in adequate position. Central Line Placement Right IJ: Indication(s): poor, or inadequate peripheral venous access Informed consent obtained: obtained from surrogate decision maker Time out done, and the following verified: correct patient, side and site, procedure, patient position and implants and/or equipment Patient placed on monitor/pulse ox: Yes Hand Hygiene: scrub, soap & water and alcohol-based hand rub Max Sterile Barrier Techniques used: cap, mask, sterile gown, sterile gloves and sterile full body drape Central line prep: Povidone-Iodine 1%, Chlorhexidine scrub and sterile drapes applied Local anesthesia used: lidocaine 1% Ultrasound used for placement: Yes Sterile Technique if Ultrasound used, including sterile gel: yes Central line lumen inserted: triple Post procedure: sutured in place, good blood return, all ports aspirated, flushed, capped and sterile dressing applied Post procedure x-ray: tip of catheter in good position and no pneumothorax seen Patient tolerated procedure: well and no complications EBL(ml): 5 Complications: none Procedure comment: Procedure done under the supervision of Dr. Vickey Meraz MD PGY-1
--- NOTE | 2025-07-08 18:14 | PC.NURSE ---
MIRA BWE AN INACCURATE BP READING PT REZAIDINS W/ AMS AND CONT'S. TO MOVE DURING BP CHECK. WILL RECHECK BP.
--- NOTE | 2025-07-08 18:20 | PC.NURSE ---
DESPITE NUMEROUS ATTEMPTS IN MULTIPLE SPOTS , VS CHECK WAS ONLY ABLE TO BE ATTAINED AFTER RINSE BACK.
[2025-07-08 18:26] LABS: Lactic Acid, 3 HR 5.4 mMol/L (0.4-2.0)
--- NOTE | 2025-07-08 18:52 | XR_ITS ---
Examination: AP chest single view. 91 AP portable semiupright chest single view Date and time: June 07, 2025, 1999 hours INDICATIONS: O2 desaturation today. FINDINGS: Opacity in the left perihilar left basilar region consistent with early pneumonia Normal heart size Right arm dual-lumen PICC line tip satisfactory position Right internal jugular dialysis catheter tip satisfactory position Pulmonary vascular congestion IMPRESSION: Suspicious for early diffuse left lung pneumonia
[2025-07-08 19:03] LABS: Albumin, Serum 1.9 gm/dL (3.5-5.0); Anion Gap 14 (7-16); BUN/Creatinine Ratio 13 Ratio (12-20); Blood Urea Nitrogen < 5 mg/dL (9-23); Calcium 7.8 mg/dL (8.3-10.6); Calcium (Corrected) 9.5 mg/dL (8.5-10.1); Carbon Dioxide 21.6 mMol/L (20.0-31.0); Chloride 109 mMol/L (98-107); Creatinine (Component) 0.4 mg/dL (0.6-1.3); Estimated Creatinine Clearance 162.9 mL/min (>60); Glucose 72 mg/dL (74-106); Magnesium 1.4 mg/dL (1.6-2.6); Osmolality,Calculated 284 (275-295); Phosphorous 1.3 mg/dL (2.4-5.1); Potassium 3.4 mMol/L (3.4-5.1); Sodium 145 mMol/L (136-145); eGFR > 60 See Note
--- NOTE | 2025-07-08 19:16 | EVENTNT_ITS ---
Documentation for date of: 07/08/25 Event Note Event Note: Rapid response was called at around 6:50 pm for altered mental status. The Floors and ICU teams arrived promptly to find patient with intact airway, breathing and saturating well on 5L NC (tachypneic upper 20s RR), heart rate el evated to 140s, blood pressure was not able to be taken initially with patient's movements. Patient not responding well to questions. Blood sugar was taken and found to be 36. Patient was given D50 push. Patient was then taken taken and upgraded to ICU. Her blood pressure was taken there showing around 120 systolically.
[2025-07-08] MEDS: DEXTROSE 50%-WATER INJ 50 ML SYRINGE 100 ML IVP (19:20)
[2025-07-08 19:23] LABS: Reflex Lactate? Y
[2025-07-08] MEDS: Sodium Bicarb 8.4% 50ml Vial* 88.23 MEQ in DEXTROSE 5%-WATER 500 ML 100 MEQ IV (19:30)
--- NOTE | 2025-07-08 19:31 | ESCONSULT_ITS ---
HPI Data of Consult Requesting Physician: Rasheed Matthews DO Admitting Provider: Marin Burris MD Attending Provider: Rasheed Matthews DO Primary Care Provider: Corazon Hermosillo MD Consult Narrative History of present illness: The patient is a 55-year-old female with past medical history of hypertension, hypothyroidism, rheumatoid arthritis, on chronic steroid therapy, gastric bypass, perforated gastric jejunostomy s/p repair presented initially to the ED on 07/04/2025 with chief complaint of AMS. During my evaluation today on 07/08/2025, the patient was alert and oriented to herself only, and history was obtained from chart review. The patient was initially admitted for sepsis likely secondary to community-acquired pneumonia and subphrenic abscess. The patient's lactic acidosis was not improving, and underwent hemodialysis today for acidosis. However, SULFUR BURNER was called for altered mental status, this evening, and was found to have blood sugar of 36, for which she received 100 cc of bolus IV D50W. Initially it was difficult to obtain blood pressure, but later it was 125/91. The patient was upgraded to ICU for further management and hourly blood sugar checkup. During my evaluation, her other vitals were pulse 140s, RR 28, saturating 99% on 5 L NC. Labs taken immediately after SULFUR BURNER was white count 7.8, hemoglobin 8.6, platelet 189, potassium 3.2, bicarb 19.4, anion gap 18, BUN less than 5, creatinine 0.5, blood sugar 193, lactic acid 6.9, phosphorus 1.6, magnesium 1.4, AST/ALT 50/64, albumin 1.9, BHB 0.9, TSH 0.19, free T41.12. Imaging done on 07/04/[address] negative for acute hemorrhage, mass effect or midline shift, CXR revealing early left base pneumonia, abdomen/pelvis CT revealed left base pneumonia, small left pleural effusion, small left subphrenic abscess, measuring 14 mm in thickness. EKG has been revealing sinus tachycardia. Blood and urine culture has been so far negative. PMH: As mentioned above Surgical history: Cholecystectomy, appendectomy, gastric bypass Family history: Unobtainable Social history: Lives with , denies recent travel, denies history of smoking, recent alcohol use or any recreational drug use Medications: To be reconciled Allergies: Sulfa-based antibiotics cc:: cc: Rasheed Matthews, DO Review of Systems Review of Systems ROS Unobtainable: unobtainable due to mental status Exam Vital Signs Temp Pulse Resp BP Pulse Ox O2 Del Method O2 Flow Rate 98.1 F 143 H 28 H 120/93 H 99 Nasal Cannula 5 07/08/25 16:00 07/08/25 18:53 07/08/25 18:53 07/08/25 18:15 07/08/25 18:53 07/08/25 16:00 07/08/25 18:53 Narrative Exam General: No acute distress, Alert and Oriented to herself only, mild response with name but without opening eyes HEENT: Moist mucous membranes, oropharynx clear Neck: Supple, No masses, No JVD CVS: Sinus tachycardic, No murmurs, rubs or gallops Lungs: Clear to auscultation with no accessory use, no wheeze no rhonchi Abd: Soft, NT/ND, +BS, no organomegaly Ext: Upper and lower extremity nonpitting edema, abrasion over upper bilateral forearm, warm and well perfused Skin: No rash Neuro: Spontaneous upper and lower extremity movements, further neuro examination could not be done due to AMS Psych: Unobtainable Results Labs 07/08/25 19:08 07/08/25 19:08 Labs: Short CBC 07/08/25 Range/Units 04:25 WBC 7.6 (3.6-11.0) Thou/mm3 Hgb 9.5 L (12.0-16.0) g/dL Hct 29.4 L (36.0-46.0) % Plt Count 245 (140-440) Thou/mm3 BMP 07/07/25 07/08/25 07/08/25 18:56 04:25 11:00 Sodium 143 144 Cancelled Potassium 3.3 L 3.3 L Cancelled Chloride 108 H 107 Cancelled Carbon Dioxide 19.0 L 15.3 L Cancelled BUN < 5 L 5 L Cancelled Creatinine 0.6 0.7 Cancelled Glucose 125 H 87 Cancelled Calcium 6.3 L* 6.8 L* Cancelled 07/08/25 07/08/25 13:45 18:11 Sodium 143 145 Potassium 3.7 3.4 Chloride 110 H 109 H Carbon Dioxide 11.8 L* 21.6 BUN 6 L < 5 L Creatinine 0.7 0.4 L Glucose 103 72 L Calcium 6.8 L* 7.8 L Cardiac Enzymes 07/08/25 Range/Units 13:45 Total Creatine Kinase 317 H (34-171) U/L Liver Function 07/07/25 07/08/25 07/08/25 Range/Units 18:56 04:25 11:00 Total Bilirubin 0.5 (0.3-1.2) mg/dL AST 56 H (0-34) U/L ALT 51 H (10-49) U/L Alkaline Phosphatase 123 H D (46-116) U/L Albumin 2.1 L 2.2 L Cancelled (3.5-5.0) gm/dL 07/08/25 07/08/25 Range/Units 13:45 18:11 Total Bilirubin (0.3-1.2) mg/dL AST (0-34) U/L ALT (10-49) U/L Alkaline Phosphatase (46-116) U/L Albumin 2.0 L 1.9 L (3.5-5.0) gm/dL ABG Interpretation ABG results: 07/07/25 14:14 VBG pH 7.48 VBG pCO2 24 L VBG pO2 72 H VBG Base Excess -5 L Quality Measures Quality Measures VTE prophylaxis Medications Home Medications and Allergies Home Medications ?Medication ?Instructions ?Recorded ?Confirmed ?Type montelukast 10 mg tablet 1 tab PO QDAY ##0 05/10/17 0 06/07/25 History (Singulair) albuterol sulfate 90 mcg/actuation 2 inh inhalation Q4 H PRN Wheezing 08/07/23 06/07/25 History aerosol inhaler gabapentin 300 mg capsule 300 mg PO TID 11/22/2406/07 History methocarbamol 750 mg tablet 750 mg PO Q8H PRN Muscle P ain 11/22/24 06/07/25 History upadacitinib 15 mg tablet,extended 15 mg PO QDAY 11/2206/07/25 History release 24 hr (Rinvoq) Held on 11/30/24. Instructions: Resume on 11/30/24. Hold until you see your PCP zolpidem 12.5 mg tablet,extended 12.5 mg PO HS 5 06/07/25 History release,multiphase (Ambien CR) lisinopril 40 mg tablet 40 mg PO QDAY 06/07/2506/07 History Allergies Allergy/AdvReac Type Severity Reaction Status Date / Time sulfamethoxazole Allergy Unknown SERUM Verified 07/04/25 13:29 SICKNESS trimethoprim Allergy Unknown SERUM Verified 07/04/25 13:29 SICKNESS Visit Medications Acetaminophen (Acetaminophen 325 Mg Tablet) 650 mg PO Q6H PRN PRN Reason: Fever >100 or pain 1-3 Stop: 08/03/25 18:32 Hydrocodone Bitart/Acetaminophen (Hydrocodone/Apap 5/325 Tablet) 1 tab PO Q4HR PRN PRN Reason: PAIN SCALE 4-6 (Moderate Stop: 07/09/25 18:32 Last Admin: 07/07/25 09:55 Dose: 1 tab Folic Acid (Folic Acid Inj 1 Mg/0.2 Ml) 1 mg IVP QDAY [facility] Stop: 08/03/25 20:44 Last Admin: 07/08/25 19:24 Dose: Not Given Heparin Sodium (Porcine) (Heparin Sod Inj 5000 Unit/Ml Vial) 5,000 unit SC Q12H [facility] Stop: 07/18/25 18:44 Last Admin: 07/08/25 05:22 Dose: 5,000 unit Heparin Sodium (Porcine) (Heparin Sod Inj 1000 Unit/Ml Vial 10 Ml) 2,600 unit INDWELLCAT PRN PRN PRN Reason: DIALYSIS Stop: 07/22/25 13:40 Last Admin: 07/08/25 17:34 Dose: 2,600 unit Piperacillin/Tazobactam/Dextrose (Zosyn) 3.375 gm in 50 mls @ 12.5 mls/hr IV Q8HR [facility]; Protocol Stop: 07/11/25 21:59 Last Admin: 07/08/25 05:21 Dose: 12.5 mls/hr Multivitamins/Minerals 10 ml/ (Sodium Chloride) 510 mls @ 50 mls/hr IV QDAY [facility] Stop: 08/07/25 13:29 Last Admin: 07/08/25 19:23 Dose: Not Given Sodium Bicarbonate 88.23 meq/ (Dextrose) 588.23 mls @ 100 mls/hr IV .Q5H53M [facility] Stop: 08/07/25 15:06 Albumin Human (Albuminar-25 Ivpb) 25 gm in 100 mls @ 100 mls/min IV PRN PRN PRN Reason: DIALYSIS Sodium Chloride (Ns) 1,000 mls @ 500 mls/hr IV .Q2H [facility] Stop: 08/07/25 16:14 Last Admin: 07/08/25 16:15 Dose: 500 mls/hr Albumin Human (Albuminar-25 Ivpb) 25 gm in 100 mls @ 100 mls/hr IV X1 ONE Stop: 07/08/25 19:55 Levothyroxine Sodium (Levothyroxine Sodium 100 Mcg Tablet) 100 mcg PO ACBR [facility] Stop: 08/07/25 08:09 Last Admin: 07/08/25 10:36 Dose: Not Given Methylprednisolone Sodium Succinate (Methylprednisolone Sod Succ 40 Mg Vial) 12 mg IVP QDAY [facility]; Protocol Stop: 07/15/25 17:14 Morphine Sulfate (Morphine Sulf Inj 10 Mg/Ml Vial) 1 mg IVP Q4H PRN PRN Reason: PAIN SCALE 7-10 (Severe Stop: 07/09/25 18:32 Last Admin: 07/08/25 14:37 Dose: 1 mg Multivitamins (Multivitamins Tablet) 1 tab PO QDAY [facility] Stop: 07/18/25 08:59 Last Admin: 07/08/25 10:37 Dose: Not Given Niacin (Niacin 500 Mg Tabir) 250 mg PO QDAY [facility]; Protocol Stop: 08/07/25 15:14 Last Admin: 07/08/25 19:27 Dose: Not Given Ondansetron HCl (Ondansetron Inj 2 Mg/Ml Inj 2 Ml) 4 mg IVP Q6HR PRN PRN Reason: NAUSEA OR VOMITING Stop: 08/03/25 14:02 Last Admin: 07/04/25 20:19 Dose: 4 mg Pantoprazole Sodium (Pantoprazole Inj 40 Mg Vial) 40 mg IVP QDAY [facility] Stop: 08/04/25 08:59 Last Admin: 07/07/25 09:54 Dose: 40 mg Pyridoxine HCl (Pyridoxine Inj 100 Mg/Ml Vial) 100 mg IM QDAY [facility] Stop: 07/14/25 08:59 Thiamine HCl (Thiamine Inj 100 Mg/Ml Vial 2 Ml) 100 mg IVP QDAY [facility] Stop: 08/03/25 20:44 Last Admin: 07/08/25 19:24 Dose: Not Given Discontinued Medications Calcium Acetate (Calcium Acetate 667 Mg Tablet) 667 mg PO TIDWM [facility] Stop: 08/07/25 07:59 Last Admin: 07/08/25 13:26 Dose: Not Given Calcium Carbonate (Calcium Carbonate 600 Mg Tablet) 600 mg PO X1 ONE Stop: 07/07/25 08:42 Last Admin: 07/07/25 09:55 Dose: 600 mg Calcium Gluconate (Calcium Gluconate 10% Inj 1 Gm/10 Ml Vial) 1 gm IV X1 ONE Stop: 07/07/25 19:55 Last Admin: 07/07/25 20:33 Dose: 1 gm Dextrose (Dextrose 50%-Water Inj 50 Ml Syringe) 50 ml IVP X1 ONE Stop: 07/05/25 08:27 Last Admin: 07/05/25 09:41 Dose: 50 ml Dextrose (Dextrose 50%-Water Inj 50 Ml Syringe) 50 ml IVP X1 ONE Stop: 07/05/25 17:23 Last Admin: 07/05/25 17:40 Dose: 50 ml Dextrose (Dextrose 50%-Water Inj 50 Ml Syringe) 50 ml IVP X1 ONE Stop: 07/08/25 05:47 Last Admin: 07/08/25 06:01 Dose: 50 ml Dextrose (Dextrose 50%-Water Inj 50 Ml Syringe) 100 ml IVP X1 ONE Stop: 07/08/25 18:53 Last Admin: 07/08/25 19:20 Dose: 100 ml Diphenhydramine HCl (Diphenhydramine Inj 50 Mg/Ml Vial) 25 mg IVP X1 ONE Stop: 07/05/25 00:52 Last Admin: 07/05/25 00:57 Dose: 25 mg Escitalopram Oxalate (Escitalopram Oxalate 10 Mg Tablet) 10 mg PO QDAY [facility] Stop: 08/04/25 10:59 Last Admin: 07/06/25 10:36 Dose: 10 mg Heparin Sodium (Beef Lung) (Heparin Sod Lock Syr 100 Unit/Ml) 500 unit STFIELD X1 ONE Stop: 07/08/25 14:49 Last Admin: 07/08/25 14:49 Dose: 500 unit Lactated Ringer's (Lactated Ringers) 1,779 mls @ 1,779 mls/hr 30 ml/kg infuse over 60 min (1779 ml) IV .Q1H ONE Stop: 07/04/25 15:02 Last Infusion: 07/04/25 18:31 Dose: Infused Piperacillin/Tazobactam/Dextrose (Zosyn) 3.375 gm in 50 mls @ 100 mls/hr IV X1 ONE Stop: 07/04/25 14:32 Last Infusion: 07/04/25 15:27 Dose: Infused Acetaminophen (Ofirmev Inj) 1,000 mg in 100 mls @ 250 mls/hr IV X1 ONE Stop: 07/04/25 14:34 Last Infusion: 07/04/25 15:51 Dose: Infused Magnesium Sulfate (Magnesium Sulfate Ivpb) 2 gm in 50 mls @ 25 mls/hr IV X1 ONE Stop: 07/04/25 17:50 Last Admin: 07/04/25 17:47 Dose: 25 mls/hr Potassium Chloride (Kcl Ivpb) 10 meq in 100 mls @ 100 mls/hr IV Q1H [facility] Stop: 07/04/25 18:50 Last Admin: 07/04/25 19:53 Dose: 100 mls/hr Sodium Chloride (Ns) 1,000 mls @ 75 mls/hr IV .[id number] [facility] Stop: 08/03/25 18:44 Last Admin: 07/04/25 19:34 Dose: 75 mls/hr Vancomycin HCl 1,500 mg/ (Sodium Chloride) 500 mls @ 198 mls/hr IV X1 ONE Stop: 07/04/25 21:31 Last Admin: 07/04/25 19:37 Dose: 198 mls/hr Lactated Ringer's (Lactated Ringers) 1,000 mls @ 999 mls/hr IV .Q1H1M ONE Stop: 07/05/25 00:42 Last Admin: 07/04/25 23:49 Dose: 999 mls/hr Lactated Ringer's (Lactated Ringers) 500 mls @ 999 mls/hr IV .Q31M ONE Stop: 07/05/25 08:14 Last Admin: 07/05/25 08:10 Dose: 999 mls/hr Magnesium Sulfate (Magnesium Sulfate Ivpb) 2 gm in 50 mls @ 25 mls/hr IV X1 ONE Stop: 07/05/25 09:43 Last Admin: 07/05/25 08:03 Dose: 25 mls/hr Vancomycin HCl (Vancomycin/Water 1250 Mg Ivpb) 250 mls @ 120 mls/hr IV BID@1000,2200 [facility] Stop: 07/12/25 09:59 Last Admin: 07/05/25 22:23 Dose: 120 mls/hr Potassium Chloride (Kcl Ivpb) 10 meq in 100 mls @ 100 mls/hr IV Q1H [facility] Stop: 07/05/25 12:59 Last Admin: 07/05/25 14:06 Dose: 100 mls/hr Multivitamins/Minerals 10 ml/ (Sodium Chloride) 510 mls @ 100 mls/hr IV X1 ONE Stop: 07/05/25 15:35 Last Admin: 07/05/25 10:44 Dose: 100 mls/hr Lactated Ringer's (Lactated Ringers) 1,000 mls @ 110 mls/hr IV .Q9H6M ONE Stop: 07/06/25 04:29 Last Admin: 07/05/25 19:46 Dose: 110 mls/hr Magnesium Sulfate (Magnesium Sulfate Ivpb) 2 gm in 50 mls @ 25 mls/hr IV X1 ONE Stop: 07/06/25 12:40 Last Admin: 07/06/25 12:49 Dose: 25 mls/hr Potassium Phosphate (Pot Phos 15 Mmol In Ns 250 Ml) 15 mmol in 250 mls @ 62.5 mls/hr IV X1 ONE Stop: 07/06/25 14:40 Last Admin: 07/06/25 12:49 Dose: 62.5 mls/hr Lactated Ringer's (Lactated Ringers) 1,000 mls @ 999 mls/hr IV .Q1H1M ONE Stop: 07/06/25 17:32 Last Admin: 07/06/25 19:14 Dose: Not Given Lactated Ringer's (Lactated Ringers) 1,000 mls @ 75 mls/hr IV .[id number] [facility] Stop: 07/07/25 16:31 Last Admin: 07/06/25 19:14 Dose: Not Given Potassium Chloride (Kcl Ivpb) 10 meq in 100 mls @ 100 mls/hr IV Q1H [facility] Stop: 07/06/25 20:44 Last Admin: 07/06/25 23:26 Dose: 50 mls/hr Dextrose/Sodium Chloride (D5-Ns) 500 mls @ 500 mls/hr IV .Q1H ONE; Protocol Stop: 07/06/25 17:49 Last Admin: 07/06/25 19:15 Dose: Not Given Dextrose/Sodium Chloride (D5-Ns) 1,000 mls @ 100 mls/hr IV .Q10H ONE Stop: 07/07/25 03:59 Last Admin: 07/06/25 20:26 Dose: 100 mls/hr Sodium Chloride (Ns) 1,000 mls @ 500 mls/hr IV .Q2H ONE Stop: 07/06/25 19:35 Last Admin: 07/06/25 18:06 Dose: 500 mls/hr Sodium Chloride (Ns) 500 mls @ 999 mls/hr IV .Q31M ONE Stop: 07/06/25 18:39 Last Admin: 07/06/25 19:39 Dose: Not Given Vancomycin HCl (Vancomycin/Water 1250 Mg Ivpb) 250 mls @ 120 mls/hr IV Q24H [facility] Stop: 07/14/25 09:59 Last Admin: 07/07/25 11:25 Dose: Not Given Dextrose/Lactated Ringer's (D5-Lr) 1,000 mls @ 100 mls/hr IV .Q10H [facility] Stop: 07/08/25 07:59 Last Admin: 07/07/25 11:27 Dose: 100 mls/hr Dextrose/Lactated Ringer's (D5-Lr) 1,000 mls @ 75 mls/hr IV .[id number] [facility] Stop: 07/08/25 12:37 Last Admin: 07/07/25 13:14 Dose: 75 mls/hr Lactated Ringer's (Lactated Ringers) 500 mls @ 999 mls/hr IV .Q31M ONE Stop: 07/07/25 14:25 Last Admin: 07/07/25 15:05 Dose: 999 mls/hr Dextrose/Lactated Ringer's (D5-Lr) 1,000 mls @ 50 mls/hr IV .Q20H [facility] Stop: 08/06/25 14:06 Potassium Phosphate (Pot Phos 15 Mmol In Ns 250 Ml) 15 mmol in 250 mls @ 62.5 mls/hr IV X1 ONE Stop: 07/07/25 19:40 Last Admin: 07/07/25 20:35 Dose: 62.5 mls/hr Lactated Ringer's (Lactated Ringers) 500 mls @ 999 mls/hr IV .Q31M ONE Stop: 07/07/25 16:53 Last Admin: 07/07/25 20:33 Dose: 999 mls/hr Magnesium Sulfate (Magnesium Sulfate Ivpb) 2 gm in 50 mls @ 25 mls/hr IV X1 ONE Stop: 07/08/25 00:56 Last Admin: 07/08/25 00:21 Dose: 25 mls/hr Sodium Chloride (Ns) 500 mls @ 999 mls/hr IV .Q31M ONE Stop: 07/07/25 23:28 Last Admin: 07/08/25 00:21 Dose: 999 mls/hr Magnesium Sulfate (Magnesium Sulfate Ivpb) 2 gm in 50 mls @ 25 mls/hr IV X1 ONE Stop: 07/08/25 09:36 Potassium Phosphate (Pot Phos 15 Mmol In Ns 250 Ml) 15 mmol in 250 mls @ 62.5 mls/hr IV Q4H [facility] Stop: 07/08/25 15:36 Sodium Chloride (Ns) 500 mls @ 999 mls/hr IV .Q31M ONE Stop: 07/08/25 08:10 Last Admin: 07/08/25 10:22 Dose: 999 mls/hr Albumin Human (Albuminar-25 Ivpb) 12.5 gm in 50 mls @ 50 mls/hr IV X1 ONE Stop: 07/08/25 09:02 Last Admin: 07/08/25 19:22 Dose: Not Given Lactated Ringer's (Lactated Ringers) 500 mls @ 999 mls/hr IV .Q31M ONE Stop: 07/08/25 15:17 Last Admin: 07/08/25 19:21 Dose: Not Given Lidocaine HCl (Lidocaine Inj Pf 1% 30 Ml Vial) 5 ml EPID X1 ONE Stop: 07/08/25 14:49 Last Admin: 07/08/25 14:49 Dose: 5 ml Metoprolol Tartrate (Metoprolol Tartrate 25 Mg Tablet) 25 mg PO X1 ONE Stop: 07/05/25 07:41 Last Admin: 07/05/25 08:03 Dose: 25 mg Mirtazapine (Mirtazapine 15 Mg Tablet) 15 mg PO QDAY [facility] Stop: 08/05/25 12:29 Last Admin: 07/06/25 12:49 Dose: 15 mg Mirtazapine (Mirtazapine 15 Mg Tablet) 7.5 mg PO QDAY [facility] Stop: 08/05/25 13:59 Last Admin: 07/06/25 19:14 Dose: Not Given Mirtazapine (Mirtazapine 15 Mg Tablet) 7.5 mg PO QDAY [facility] Stop: 08/06/25 08:59 Last Admin: 07/08/25 10:36 Dose: Not Given Niacin (Niacin 500 Mg Tabir) 100 mg PO TID [facility] Stop: 08/07/25 11:29 Last Admin: 07/08/25 19:24 Dose: Not Given Niacin (Niacin 500 Mg Tabir) 250 mg PO QDAY [facility]; Protocol Stop: 08/07/25 12:29 Last Admin: 07/08/25 13:26 Dose: Not Given Pharmacy Consult (Vancomycin Pharmacy To Dose 1 Each Each) 1 each IV QDAY [facility] Stop: 08/03/25 18:44 Last Admin: 07/07/25 11:21 Dose: Not Given Potassium Chloride (Potassium Chloride 20 Meq Tabcr) 40 meq PO X1 ONE Stop: 07/05/25 07:45 Last Admin: 07/05/25 08:03 Dose: 40 meq Potassium Chloride (Potassium Chloride 20 Meq Tabcr) 40 meq PO X1 ONE Stop: 07/05/25 11:01 Potassium Chloride (Potassium Chloride 20 Meq Tabcr) 40 meq PO X1 ONE Stop: 07/05/25 15:01 Potassium Chloride (Potassium Chloride 10% 20 Meq/15 Ml Udc) 40 meq PO X1 ONE Stop: 07/05/25 08:56 Last Admin: 07/05/25 09:52 Dose: 40 meq Potassium Phos/Sodium Phos (Naph,[facility] Mbdb 1 Packet (1.5 Gm)) 2 packet PO X1 ONE Stop: 07/05/25 07:45 Last Admin: 07/05/25 08:03 Dose: 2 packet Pyridoxine HCl (Pyridoxine Inj 100 Mg/Ml Vial) 100 mg IM X1 ONE Stop: 07/08/25 12:10 Last Admin: 07/08/25 13:52 Dose: 100 mg Sodium Bicarbonate (Sodium Bicarb Inj 8.4% 1 Meq/Ml 50 Ml Vial) 50 meq IV X1 ONE Stop: 07/07/25 07:53 Last Admin: 07/07/25 09:54 Dose: 50 meq Sodium Bicarbonate (Sodium Bicarb Inj 8.4% Syr 50 Ml Syringe) 50 ml IV X1 ONE Stop: 07/07/25 13:57 Last Admin: 07/07/25 15:28 Dose: 50 ml Sodium Bicarbonate (Sodium Bicarb Inj 8.4% 1 Meq/Ml 50 Ml Vial) 50 meq IV X1 ONE Stop: 07/08/25 07:47 Last Admin: 07/08/25 19:20 Dose: Not Given Sodium Bicarbonate (Sodium Bicarb Inj 8.4% 1 Meq/Ml 50 Ml Vial) 50 meq IV X1 ONE Stop: 07/08/25 14:45 Last Admin: 07/08/25 19:21 Dose: Not Given Vitamin B Complex/Vit C/Folic Acid (Vit B12/Vit C/Fa (Nephrovite) Tablet) 1 tab PO QDAY [facility] Stop: 08/05/25 08:59 Assessment & Plan Plan The patient is a 55-year-old female with past medical history of hypertension, hypothyroidism, rheumatoid arthritis, on chronic steroid therapy, gastric bypass, perforated gastric jejunostomy s/p repair presented initially to the ED on 07/04/2025 with chief complaint of AMS. Neuro: #Acute encephalopathy Likely multifactorial with hypoglycemia, sepsis and lactic acidosis Patient was found to have blood sugar of 36 and the patient has underlying subphrenic abscess Head CT during presentation was negative Has been having tachypnea and tachycardia - Hourly blood sugar monitoring - Continue to treat underlying sepsis with antibiotics, likely will require source control with aspiration of subphrenic abscess as lactic acid is not trending down - Continue with hemodialysis as the patient continues to worsen lactic acidosis after hemodialysis CVS: #Hypertension Blood pressure currently is stable - Hold antihypertensive medication in the setting of sepsis - Telemetry monitoring - Monitor for now Pulmonology: # Acute hypoxic respiratory failure 2/ #Community-acquired pneumonia Chest x-ray initially revealed early pneumonia - Continue with Zosyn for now GI: #Subphrenic abscess The patient was found to have subphrenic abscess 14 mm - Continue with Zosyn - May need source control with percutaneous drainage or surgical drainage of the abscess as lactic acidosis is not being controlled - Pending CT abdomen/pelvis with and without contrast #History of gastric bypass #Perforated gastric jejunostomy s/p repair - Continue to monitor #Hypoproteinemia #Hypoalbuminemia #Hypoglobulinemia Likely secondary to nutritional deficiencies Daily albumin 25 g IV - Nutritional consult done Renal: #Hypokalemia #Hypophosphatemia #Hypomagnesemia Likely secondary to nutritional deficiency, further complicated by refeeding syndrome - Continue to monitor electrolytes and replete as needed #High anion gap metabolic acidosis 2/2 #Sepsis secondary to subphrenic abscess - Continue with hemodialysis as per nephrology - Will need source control with percutaneous drainage or surgical drainage of subphrenic abscess as lactic acidosis has not been controlled - Continue on bicarb drip for now, may discontinue by tomorrow morning Endocrinology: #Hypothyroidism The patient initially presented with hyperthyroidism, improved, and currently again placed back on levothyroxine #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 use of steroid for rheumatoid arthritis - Continue with home dose of steroid - May consider DEXA scan in send outpatient basis for possible osteoporosis in the setting of long-term steroid use Rheumatology: #Rheumatoid arthritis - Continue with home dose of steroids - 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 Hematology: #Normocytic anemia Likely nutritional deficiency in the setting of gastric bypass - Ordered iron panel, ferritin, folate, already has high vitamin B12, reticulocyte count, LDH, peripheral smear ID: #Sepsis 2/2 #Subphrenic abscess - Currently on Zosyn - May require further drainage as the lactic acidosis is likely secondary to this underlying condition, and the source could be controlled - Blood culture and urine culture has been so far negative Skin: #Abrasion over bilateral upper extremity Etiology currently unknown - Likely secondary to excessive itching - Continue to monitor - May consider wound consult Health maintenance: Dispo: Patient updated to ICU for further management of altered mental status and hourly blood sugar check Diet: N.p.o. for now, due to mental status, will consider Ensure 3 times daily along with meals for hypoproteinemia DVT prophylaxis: Subcu heparin Lines: Right IJ hemodialysis catheter, right forearm PICC line, peripheral lines Code: Full code The patient's management plan was discussed with my attending physician Dr. Matthews, DO Cristi Martínez MD, PGY3
[2025-07-08 19:45] LABS: Basophils # (Auto) 0.0 Thou/mm3 (0.0-0.2); Basophils % (Auto) 0 % (0-2.5); Eosinophils # (Auto) 0.0 Thou/mm3 (0.0-0.5); Eosinophils % (Auto) 0 % (0-10); Hematocrit 25.5 % (36.0-46.0); Immature Granulocytes Auto 0.07 Thou/mm3 (0.00-0.00); Lymphocytes # (Auto) 1.1 Thou/mm3 (1.0-4.8); Lymphocytes % (Auto) 14 % (10-50); Mean Corpuscular HGB Conc 33.7 g/dl (31.0-37.0); Mean Corpuscular Hemoglobin 32.2 pg (25.0-35.0); Mean Corpuscular Volume 96 fL (80-100); Monocytes # (Auto) 0.5 Thou/mm3 (0.0-0.8); Monocytes % (Auto) 6 % (0-12); Neutrophils # (Auto) 6.1 Thou/mm3 (1.8-7.7); Neutrophils % (Auto) 79 % (37-80); Nucleated Red Blood Cell # 0.00 Thou/mm3 (0.00-0.00); Nucleated Red Blood Cell % 0 /100 WBC (0); Platelet Count 189 Thou/mm3 (140-440); RDW Standard Deviation 60.9 fL (36.4-46.3); Red Blood Count 2.67 Miln/mm3 (4.00-5.20); White Blood Count 7.8 Thou/mm3 (3.6-11.0)
[2025-07-08 19:47] LABS: Hemoglobin 8.6 g/dL (12.0-16.0)
[2025-07-08 20:01] LABS: Alanine Aminotransferase 64 U/L (10-49); Albumin, Serum 1.9 gm/dL (3.5-5.0); Albumin/Globulin Ratio 1.2 (1.2-2.2); Alkaline Phosphatase 115 U/L (46-116); Anion Gap 18 (7-16); Aspartate Amino Transferase 50 U/L (0-34); BUN/Creatinine Ratio 10 Ratio (12-20); Bilirubin,Total 0.5 mg/dL (0.3-1.2); Blood Urea Nitrogen < 5 mg/dL (9-23); Calcium 7.5 mg/dL (8.3-10.6); Calcium (Corrected) 9.2 mg/dL (8.5-10.1); Carbon Dioxide 19.4 mMol/L (20.0-31.0); Chloride 107 mMol/L (98-107); Creatinine (Component) 0.5 mg/dL (0.6-1.3); Estimated Creatinine Clearance 130.3 mL/min (>60); Globulin 1.6 gm/dL (2.3-3.5); Glucose 193 mg/dL (74-106); Magnesium 1.4 mg/dL (1.6-2.6); Osmolality,Calculated 289 (275-295); Phosphorous 1.6 mg/dL (2.4-5.1); Potassium 3.2 mMol/L (3.4-5.1); Sodium 144 mMol/L (136-145); Total Protein 3.5 gm/dL (5.7-8.2); eGFR > 60 See Note
[2025-07-08 20:03] LABS: Lactate (Lactic Acid) 6.9 mMol/L (0.4-2.0)
[2025-07-08] MEDS: POT PHOS 15 mMol in NS 250 ML 15 MMOL/250 ML BAG 62.5 MMOL IV (20:11)
[2025-07-08] MEDS: ALBUMIN HUMAN 25% IVPB 25 GM/100 ML BTL IV (20:12)
--- NOTE | 2025-07-08 20:23 | PD.IMCONS ---
HPI Data of Consult Requesting Physician: Rasheed Matthews DO Primary Care Provider: Corazon Hermosillo MD Consult Narrative Reason for consult: Lactic acidosis, gross electrolyte abnormalitiesAbnormal CT AP History of present illness: 55-year-old female seen in the ICU in room 254 who is status post rapid response currently with lactic acidosis and a rising lactic acid to 6.9 low hemoglobin hematocrit 8.6 and 25.5 with a platelet count 189,000 I have seen this patient before in May of this year when she had a perforated anastomotic site ulceration of the gastrojejunostomy having a surgical repair done postoperatively she had a left diaphragmatic abscess requiring catheter drainage and was sent home Patient does have a history of essential hypertension hypothyroidism rheumatoid arthritis and Lynn-en-Y gastrojejunostomy bariatric procedure and as mentioned above left sub-diaphragmatic abscess cc:: cc: Rasheed Matthews DO Review of Systems Review of Systems ROS Unobtainable: unobtainable due to medical condition Past Medical History Surgical History OTHER SURGICAL HX: As in the history of present illness Meds Home Medications and Allergies Home Medications ?Medication ?Instructions ?Recorded ?Confirmed ?Type montelukast 10 mg tablet 1 tab PO QDAY ##0 05/10/17 06/07/25 History (Singulair) albuterol sulfate 90 mcg/actuation 2 inh inhalation Q4H PRN Wheezing 08/07/23 06/07/25 History aerosol inhaler gabapentin 300 mg capsule 300 mg PO TID 11/22/24 06/07/25 History methocarbamol 750 mg tablet 750 mg PO Q8H PRN Muscle Pain 11/22/24 06/07/25 History upadacitinib 15 mg tablet,extended 15 mg PO QDAY 11/22/24 06/07/25 History release 24 hr (Rinvoq) Held on 11/30/24. Instructions: Resume on 11/30/24. Hold until you see your PCP zolpidem 12.5 mg tablet,extended 12.5 mg PO HS 11/22/24 06/07/25 History release,multiphase (Ambien CR) lisinopril 40 mg tablet 40 mg PO QDAY 06/07/25 06/07/25 History Allergies Allergy/AdvReac Type Severity Reaction Status Date / Time sulfamethoxazole Allergy Unknown SERUM Verified 07/04/25 13:29 SICKNESS trimethoprim Allergy Unknown SERUM Verified 07/04/25 13:29 SICKNESS Exam Vital Signs Temp Pulse Resp BP Pulse Ox O2 Del Method O2 Flow Rate 98.1 F 143 H 28 H 120/93 H 99 Nasal Cannula 5 07/08/25 16:00 07/08/25 18:53 07/08/25 18:53 07/08/25 18:15 07/08/25 18:53 07/08/25 16:00 07/08/25 18:53 Constitutional Comments: Chronically ill-appearing Routine Respiratory Exam Comments: Scattered rhonchi Routine Abdominal Exam Comments: Positive bowel sounds nontender Results Labs 07/08/25 19:08 07/08/25 19:08 Labs: Short CBC 07/08/25 07/08/25 Range/Units 04:25 19:08 WBC 7.6 7.8 (3.6-11.0) Thou/mm3 Hgb 9.5 L 8.6 L (12.0-16.0) g/dL Hct 29.4 L 25.5 L (36.0-46.0) % Plt Count 245 189 D (140-440) Thou/mm3 BMP 07/08/25 07/08/25 07/08/25 04:25 11:00 13:45 Sodium 144 Cancelled 143 Potassium 3.3 L Cancelled 3.7 Chloride 107 Cancelled 110 H Carbon Dioxide 15.3 L Cancelled 11.8 L* BUN 5 L Cancelled 6 L Creatinine 0.7 Cancelled 0.7 Glucose 87 Cancelled 103 Calcium 6.8 L* Cancelled 6.8 L* 07/08/25 07/08/25 18:11 19:08 Sodium 145 144 Potassium 3.4 3.2 L Chloride 109 H 107 Carbon Dioxide 21.6 19.4 L BUN < 5 L < 5 L Creatinine 0.4 L 0.5 L Glucose 72 L 193 H D Calcium 7.8 L 7.5 L Cardiac Enzymes 07/08/25 Range/Units 13:45 Total Creatine Kinase 317 H (34-171) U/L Liver Function 07/08/25 07/08/25 07/08/25 Range/Units 04:25 11:00 13:45 Total Bilirubin 0.5 (0.3-1.2) mg/dL AST 56 H (0-34) U/L ALT 51 H (10-49) U/L Alkaline Phosphatase 123 H D (46-116) U/L Albumin 2.2 L Cancelled 2.0 L (3.5-5.0) gm/dL 07/08/25 07/08/25 Range/Units 18:11 19:08 Total Bilirubin 0.5 (0.3-1.2) mg/dL AST 50 H (0-34) U/L ALT 64 H (10-49) U/L Alkaline Phosphatase 115 (46-116) U/L Albumin 1.9 L 1.9 L (3.5-5.0) gm/dL ABG Interpretation ABG results: 07/07/25 14:14 VBG pH 7.48 VBG pCO2 24 L VBG pO2 72 H VBG Base Excess -5 L Assessment and Plan Additional Assessment & Plan Additional Plan: 55-year-old female with previous history of anastomotic site perforation of the previous Lynn-en-Y gastrojejunostomy postoperatively had a subdiaphragmatic abscess who presented with altered mental status on 07/04/2025 and has now rising lactic acidosis, gross electrolyte abnormalities and altered mental status status post rapid response Suggestions Correction of the electrolytes Brought spectrum antibiotic coverage Stat CT scan of the abdomen and pelvis with contrast Case discussed with the internal medicine attending Will follow the patient Thank you very much for the opportunity to participate in the care of this patient Other medical problems include History of essential hypertension with episodes of hypotension that is postural Hypothyroidism Rheumatoid arthritis Thank you very much for the opportunity to participate in the care of this patient
[2025-07-08] MEDS: Magnesium Sulfate 4 GM Ivpb 4 GM/50 ML BAG IV (21:18)
[2025-07-08 21:50] LABS: Lactate (Lactic Acid) 8.5 mMol/L (0.4-2.0)
[2025-07-08] MEDS: RINGERS LACTATED 500 ML 500 ML 999 ML IV (22:05)
[2025-07-08 22:36] LABS: Reflex Lactate? Y
[2025-07-09] VITALS (153 sets, daily range): BP systolic 52–157; BP diastolic 30–111; PULSE 101–140; RESP 15–34; TEMP 36.3–37.2; O2SAT 72–100; BMI 27.0
[2025-07-09] MEDS: RINGERS LACTATED 1000 ML 1,000 ML 999 ML IV ×3 (00:02→18:26)
[2025-07-09] MEDS: POT PHOS 15 mMol in NS 250 ML 15 MMOL/250 ML BAG 62.5 MMOL IV (00:26)
[2025-07-09 00:43] LABS: Reflex Lactate? Y
[2025-07-09 00:59] LABS: Lactic Acid, 3 HR 7.5 mMol/L (0.4-2.0)
[2025-07-09] MEDS: Sodium Bicarb 8.4% 50ml Vial* 88.23 MEQ in DEXTROSE 5%-WATER 500 ML 100 MEQ IV ×2 (01:37→08:28)
[2025-07-09 01:38] LABS: Albumin, Serum 2.0 gm/dL (3.5-5.0); Anion Gap 16 (7-16); BUN/Creatinine Ratio 8 Ratio (12-20); Blood Urea Nitrogen < 5 mg/dL (9-23); Calcium (Corrected) 8.0 mg/dL (8.5-10.1); Carbon Dioxide 25.8 mMol/L (20.0-31.0); Chloride 101 mMol/L (98-107); Creatinine (Component) 0.6 mg/dL (0.6-1.3); Estimated Creatinine Clearance 108.6 mL/min (>60); Glucose 398 mg/dL (74-106); Magnesium 2.6 mg/dL (1.6-2.6); Osmolality,Calculated 299 (275-295); Phosphorous 2.8 mg/dL (2.4-5.1); Potassium 3.7 mMol/L (3.4-5.1); Sodium 143 mMol/L (136-145); eGFR > 60 See Note
[2025-07-09 01:48] LABS: Calcium 6.4 mg/dL (8.3-10.6)
[2025-07-09] MEDS: MORPHINE SULF INJ 10 MG/ML VIAL IVP ×2 (03:51→09:35)
[2025-07-09] MEDS: ALBUMIN HUMAN 25% IVPB 25 GM/100 ML BTL IV ×4 (05:05→22:27)
[2025-07-09] MEDS: HEPARIN SOD INJ 5000 UNIT/ML VIAL SC (06:13)
[2025-07-09] MEDS: PIPER/TAZO 3.375 GM PREMIX 3.375 GM/50 ML BAG IV ×3 (06:14→22:59)
[2025-07-09 06:21] LABS: Basophils # (Auto) 0.0 Thou/mm3 (0.0-0.2); Basophils % (Auto) 0 % (0-2.5); Eosinophils # (Auto) 0.0 Thou/mm3 (0.0-0.5); Eosinophils % (Auto) 0 % (0-10); Hematocrit 25.2 % (36.0-46.0); Immature Granulocytes Auto 0.05 Thou/mm3 (0.00-0.00); Lymphocytes # (Auto) 1.0 Thou/mm3 (1.0-4.8); Lymphocytes % (Auto) 10 % (10-50); Mean Corpuscular HGB Conc 33.7 g/dl (31.0-37.0); Mean Corpuscular Hemoglobin 33.1 pg (25.0-35.0); Mean Corpuscular Volume 98 fL (80-100); Monocytes # (Auto) 0.3 Thou/mm3 (0.0-0.8); Monocytes % (Auto) 3 % (0-12); Neutrophils # (Auto) 8.6 Thou/mm3 (1.8-7.7); Neutrophils % (Auto) 87 % (37-80); Nucleated Red Blood Cell # 0.00 Thou/mm3 (0.00-0.00); Nucleated Red Blood Cell % 0 /100 WBC (0); Platelet Count 164 Thou/mm3 (140-440); RDW Standard Deviation 63.9 fL (36.4-46.3); Red Blood Count 2.57 Miln/mm3 (4.00-5.20); White Blood Count 9.9 Thou/mm3 (3.6-11.0)
[2025-07-09 06:38] LABS: Folate 3.06 ng/mL (>5.38)
[2025-07-09 06:53] LABS: Ferritin 218 ng/mL (7.3-270.7); Iron 30 mcg/dL (50-170); Percent Iron Saturation 25 % (20-55); Total Iron Binding Capacity 120 mcg/dL (250-425); Unsaturated Iron Binding 90 (225-295)
[2025-07-09 07:01] LABS: Alanine Aminotransferase 58 U/L (10-49); Albumin, Serum 2.2 gm/dL (3.5-5.0); Albumin/Globulin Ratio 1.2 (1.2-2.2); Alkaline Phosphatase 105 U/L (46-116); Anion Gap 17 (7-16); Aspartate Amino Transferase 33 U/L (0-34); BUN/Creatinine Ratio 10 Ratio (12-20); Bilirubin,Total 0.6 mg/dL (0.3-1.2); Blood Urea Nitrogen < 5 mg/dL (9-23); Calcium (Corrected) 7.9 mg/dL (8.5-10.1); Carbon Dioxide 23.0 mMol/L (20.0-31.0); Chloride 104 mMol/L (98-107); Creatinine (Component) 0.5 mg/dL (0.6-1.3); Estimated Creatinine Clearance 132.6 mL/min (>60); Free T4 (Free Thyroxine) 0.76 ng/dL (0.89-1.76); Globulin 1.8 gm/dL (2.3-3.5); Glucose 185 mg/dL (74-106); Magnesium 2.4 mg/dL (1.6-2.6); Osmolality,Calculated 289 (275-295); Phosphorous 3.2 mg/dL (2.4-5.1); Potassium 3.5 mMol/L (3.4-5.1); Sodium 144 mMol/L (136-145); Thyroid Stimulating Hormone 0.10 uIU/mL (0.55-4.78); Total Protein 4.0 gm/dL (5.7-8.2); eGFR > 60 See Note
[2025-07-09 07:07] LABS: Calcium 6.5 mg/dL (8.3-10.6)
[2025-07-09 07:16] LABS: LDH (Lactate Dehydrogenase) 630 U/L (120-246)
[2025-07-09 07:56] LABS: Hemoglobin 8.5 g/dL (12.0-16.0); Immature Reticulocyte Fraction 31.1 % (3.0-15.9); Reticulocyte % (Auto) 3.4 % (0.5-1.5); Reticulocyte Absolute Auto 46.2 Biln/L (25.0-75.0); Reticulocyte Hgb Content 30.1 pg (28.0-35.0)
[2025-07-09 08:04] LABS: Lactate (Lactic Acid) 5.9 mMol/L (0.4-2.0)
[2025-07-09 08:28] LABS: Albumin, Serum 2.6 gm/dL (3.5-5.0); Anion Gap 16 (7-16); BUN/Creatinine Ratio 8 Ratio (12-20); Blood Urea Nitrogen < 5 mg/dL (9-23); Calcium (Corrected) 7.9 mg/dL (8.5-10.1); Carbon Dioxide 24.2 mMol/L (20.0-31.0); Chloride 104 mMol/L (98-107); Creatinine (Component) 0.6 mg/dL (0.6-1.3); Estimated Creatinine Clearance 110.5 mL/min (>60); Glucose 207 mg/dL (74-106); Osmolality,Calculated 290 (275-295); Phosphorous 2.9 mg/dL (2.4-5.1); Potassium 3.4 mMol/L (3.4-5.1); Sodium 144 mMol/L (136-145); eGFR > 60 See Note
[2025-07-09 08:31] LABS: Calcium 6.8 mg/dL (8.3-10.6)
[2025-07-09 08:42] LABS: Base Excess 1 (-3-3); HCO3 25 mEq/L (20-26); Inspired Oxygen, FIO2 20 %; O2 Saturation 92 % (91-98); PCO2 38 mmHg (32.0-48.0); PO2 61 mmHg (83-108); pH, Arterial 7.43 (7.35-7.45)
[2025-07-09 08:49] LABS: Allen Test Performed/OK; Puncture Site Left Radial
[2025-07-09 09:10] LABS: Beta Hydroxybutyrate 0.6 mmol/L (<0.6)
[2025-07-09 09:36] LABS: Lactate (Lactic Acid) 6.2 mMol/L (0.4-2.0)
[2025-07-09 09:41] LABS: Path Review Blood Smear Sent to Pathologist
[2025-07-09 09:45] LABS: Parathyroid Hormone Intact 258.7 pg/ml (18.5-88.0)
[2025-07-09 09:50] LABS: Vitamin D 25 Hydroxy Total 66.0 ng/mL (7.3-40.2)
[2025-07-09] MEDS: MULTIVITAMIN INJ 10 ML in SODIUM CHLORIDE 0.9% 500 ML 500 ML 50 ML IV (09:52)
--- NOTE | 2025-07-09 10:02 | XR_ITS ---
Examination: CT chest with intravenous contrast CT abdomen with intravenous contrast CT pelvis with intravenous contrast 2-D coronal and sagittal reconstructions Time of exam: July 09, 2025, 1032 hours, comparison CT abdomen pelvis July 04, at 2024 INDICATIONS: Sepsis alert, elevated lactic acidosis CTDI: vol (mGy) : 21.8 DLP: (mGycm): 1580 Technique: Multiple axial images of the chest, abdomen and pelvis with intravenous contrast, 3.0 mm slice thickness. Images obtained post intravenous injection Isovue 370 60 cc. 2-D sagittal and coronal reconstructions. Low dose protocols were performed. One or more of the following dose reduction techniques were used; automated exposure control, adjustment of the mA and/or KV according to patient size, use of iterative reconstruction technique. Findings: No thoracic aortic aneurysmal dilatation No pulmonary artery emboli on this non-CTA study Severe bilateral lung opacity Small to moderate left pleural fluid Diffuse fatty infiltration throughout the liver 15 mm fluid collection above the spleen 12 mm hypodense mass body the pancreas No pancreatic edema No hydronephrosis Left renal calculi, the largest 3 mm No bowel obstruction Trace ascites Absent appendix Atrophic uterus Urinary bladder contracted around a Larkin catheter Severe osteopenia Advanced disc narrowing L1-L2 IMPRESSION: Negative for pulmonary artery emboli Severe pneumonia ARDS pattern throughout both lungs 15 mm left subphrenic abscess Nonobstructing left renal calculi Trace ascites
[2025-07-09 10:57] LABS: Reflex Lactate? Y
[2025-07-09] MEDS: Norepinephrine/D5W 8mg/250ml 8 MG/250 ML BAG 7.144 MG IV (11:01)
--- NOTE | 2025-07-09 11:10 | ESOP_ITS ---
PROCEDURES: Procedure Date / Time 07/09/25 3802 Procedure Narrative Procedure Narrative: Attending Attestation: I was present for entire procedure. No immediate complications. Stable BP maintained with levophed throughout. Promptly placed on sedation. Intubation Indication(s): acute Resp Failure and inability to protect airway Informed consent obtained: obtained from surrogate decision maker Time out done, and the following verified: correct patient, side and site, procedure, patient position and implants and/or equipment Sedative: etomidate Mg given: 20 Paralytic: rocuronium Mg given: 76 Laryngoscope: fiber optic video scope ET tube size: 7.5 ET tube uncuffed: No Tube secured depth (cm): 21 Tube secured location: teeth Tube placement confirmation: visualized tube passing through cords, equal breath sounds bilaterally, no breath sounds over epigastrium and confirmation by capnometry Patient tolerated procedure: well and no complications EBL(ml): 0 Intubation complications: none Additional comments: Done under supervision of Cooking Casing And Drying Supervisor, Dr. Vickey Colón, PGY2
[2025-07-09 11:28] LABS: Base Excess, Venous -1 (-3-3); O2 Saturation, Venous 85 % (96-97); PCO2, Venous 47 mmHg (36-56); PO2, Venous 54 mmHg (15-58); pH, Venous 7.34 (7.33-7.66)
[2025-07-09 11:30] LABS: Lactic Acid, 3 HR 6.2 mMol/L (0.4-2.0)
[2025-07-09] MEDS: ETOMIDATE INJ 2 MG/ML VIAL 10 ML 20 MG IVP (11:31)
[2025-07-09] MEDS: ROCURONIUM INJ 10 MG/ML VIAL 10 ML 76 MG IV (11:31)
--- NOTE | 2025-07-09 11:34 | PD.NEPHPROG ---
Documentation for date of: 07/09/25 Subjective Subjective Interval history: Chart review done. Ms. Jalloh is a 55-year-old lady with extensive past medical history of hypertension, hypothyroidism, rheumatoid arthritis , remote history of gastric bypass, with perforated gastrojejunostomy s/p emergent repair 11/2024, course complicated by intraabdominal abscesses, admitted on 07/04/2025 with altered mental status. Patient apparently had multiple falls prior to her presentation. During hospital course she was noted to have subphrenic abscess. Currently on antibiotics Patient states she is currently feeling tired. . Endorses some back pain and L flank pain. He stated that patient was able to walk around normally before November 2024. Patient endorsed fever earlier today, weight loss of around 100 pounds since November this year, decreased appetite, shortness of breath on exertion, abdominal pain and left flank pain that comes and goes . Patient denies headache, cough, chest pain, palpitations, nausea, vomiting, diarrhea. Patient admitted to the hospital with a diagnosis of sepsis. Of note for the last 24 hours that she was noted to have significant metabolic acidosis and worsening lactic acid (unclear source) and the severe electrolyte imbalance. Nephrology consultation was requested for need for emergency dialysis for lactic acidosis as lactic acid is dialyzable. Patient had a Vas-Cath placed by primary by ICU team and currently on dialysis. Spoke to Dr. Matthews. Review of Systems Review of Systems Narrative Review of Systems: Very fragile. Has decreased p.o. intake. Complaining of back pain and abdominal discomfort. She also seems to have altered level of consciousness. Exam Vital Signs Temp Pulse Resp BP Pulse Ox O2 Del Method O2 Flow Rate 37.2 C 117 H 34 H 69/53 L 96 Nasal Cannula 2 07/09/25 04:00 07/09/25 11:01 07/09/25 06:30 07/09/25 11:01 07/09/25 06:30 07/08/25 16:00 07/09/25 06:24 Narrative Exam GENERAL APPEARANCE: Patient on dialysis , sick looking NECK: Neck supple, no JVD or bruit CARDIOVASCULAR: Heart regular, no murmurs LUNGS/CHEST: Chest clear to auscultation. No rales, rhonchi, wheezing ABDOMEN: Soft, nontender, nondistended. No masses. Normal bowel sounds. + s/p sx scar EXTREMITIES:1+ edema SKIN: Skin exam normal without any rashes MUSCULOSKELETAL:in bed NEUROLOGICAL : Patient barely arousable , ALOC Objective Labs 07/09/25 18:02 07/09/25 23:30 Labs: Laboratory Results - last 24 hr 07/08/25 07/08/25 07/08/25 04:25 11:00 13:45 WBC RBC Hgb Hct MCV MCH MCHC RDW Std Deviation Plt Count Neut % (Auto) Lymph % (Auto) [place] % (Auto) Eos % (Auto) Baso % (Auto) Neut # (Auto) Lymph # (Auto) [place] # (Auto) Eos # (Auto) Baso # (Auto) Immature Gran # (Auto) Absolute Nucleated RBC Immature Gran % Nucleated RBC % Smear Path Review Retic Count (auto) Absolute Retic Immature Retic Fraction Retic Hgb Content CHr Puncture Site ABG pH ABG pCO2 ABG pO2 ABG HCO3 ABG O2 Saturation ABG Base Excess VBG pH VBG pCO2 VBG pO2 VBG O2 Sat (Eligio) VBG Base Excess FiO2 Sodium Cancelled 143 Potassium Cancelled 3.7 Chloride Cancelled 110 H Carbon Dioxide Cancelled 11.8 L* Anion Gap Cancelled 21 H BUN Cancelled 6 L Creatinine Cancelled 0.7 Estim Creat Clear Calc Cancelled 93.1 eGFR Cancelled > 60 BUN/Creatinine Ratio Cancelled 9 L Glucose Cancelled 103 Calculated Osmolality Cancelled 282 Lactic Acid 8.6 H* Calcium Cancelled 6.8 L* Corrected Calcium Cancelled 8.4 L Phosphorus Cancelled 1.9 L Magnesium Cancelled 1.6 Iron TIBC Iron Saturation Unsat Iron Binding Ferritin Total Bilirubin AST ALT Alkaline Phosphatase Lactate Dehydrogenase Total Creatine Kinase 317 H Total Protein Albumin Cancelled 2.0 L Globulin Albumin/Globulin Ratio Vitamin B12 1130 H 25-OH Vitamin D Total Folate Beta-Hydroxybutyrate/Acetoacetate 0.9 H TSH Free T4 PTH Intact 07/08/25 07/08/25 07/08/25 15:58 18:11 19:08 WBC 7.8 RBC 2.67 L Hgb 8.6 L Hct 25.5 L MCV 96 MCH 32.2 MCHC 33.7 RDW Std Deviation 60.9 H Plt Count 189 D Neut % (Auto) 79 Lymph % (Auto) 14 [place] % (Auto) 6 Eos % (Auto) 0 Baso % (Auto) 0 Neut # (Auto) 6.1 Lymph # (Auto) 1.1 [place] # (Auto) 0.5 Eos # (Auto) 0.0 Baso # (Auto) 0.0 Immature Gran # (Auto) 0.07 H Absolute Nucleated RBC 0.00 Immature Gran % 1 H Nucleated RBC % 0 Smear Path Review Retic Count (auto) Absolute Retic Immature Retic Fraction Retic Hgb Content CHr Puncture Site ABG pH ABG pCO2 ABG pO2 ABG HCO3 ABG O2 Saturation ABG Base Excess VBG pH VBG pCO2 VBG pO2 VBG O2 Sat (Eligio) VBG Base Excess FiO2 Sodium 145 144 Potassium 3.4 3.2 L Chloride 109 H 107 Carbon Dioxide 21.6 19.4 L Anion Gap 14 18 H BUN < 5 L < 5 L Creatinine 0.4 L 0.5 L Estim Creat Clear Calc 162.9 130.3 eGFR > 60 > 60 BUN/Creatinine Ratio 13 10 L Glucose 72 L 193 H D Calculated Osmolality 284 289 Lactic Acid 7.6 H* 5.4 H* 6.9 H* Calcium 7.8 L 7.5 L Corrected Calcium 9.5 9.2 Phosphorus 1.3 L 1.6 L Magnesium 1.4 L 1.4 L Iron TIBC Iron Saturation Unsat Iron Binding Ferritin Total Bilirubin 0.5 AST 50 H ALT 64 H Alkaline Phosphatase 115 Lactate Dehydrogenase Total Creatine Kinase Total Protein 3.5 L Albumin 1.9 L 1.9 L Globulin 1.6 L Albumin/Globulin Ratio 1.2 Vitamin B12 25-OH Vitamin D Total Folate Beta-Hydroxybutyrate/Acetoacetate TSH Free T4 PTH Intact 07/08/25 07/09/25 07/09/25 21:35 00:48 04:38 WBC 9.9 RBC 2.57 L Hgb 8.5 L Hct 25.2 L MCV 98 MCH 33.1 MCHC 33.7 RDW Std Deviation 63.9 H Plt Count 164 Neut % (Auto) 87 H Lymph % (Auto) 10 [place] % (Auto) 3 Eos % (Auto) 0 Baso % (Auto) 0 Neut # (Auto) 8.6 H Lymph # (Auto) 1.0 [place] # (Auto) 0.3 Eos # (Auto) 0.0 Baso # (Auto) 0.0 Immature Gran # (Auto) 0.05 H Absolute Nucleated RBC 0.00 Immature Gran % 1 H Nucleated RBC % 0 Smear Path Review Sent to Pathologist Retic Count (auto) 3.4 H Absolute Retic 46.2 Immature Retic Fraction 31.1 H Retic Hgb Content CHr 30.1 Puncture Site ABG pH ABG pCO2 ABG pO2 ABG HCO3 ABG O2 Saturation ABG Base Excess VBG pH VBG pCO2 VBG pO2 VBG O2 Sat (Eligio) VBG Base Excess FiO2 Sodium 143 144 Potassium 3.7 D 3.5 Chloride 101 104 Carbon Dioxide 25.8 23.0 Anion Gap 16 17 H BUN < 5 L < 5 L Creatinine 0.6 0.5 L Estim Creat Clear Calc 108.6 132.6 eGFR > 60 > 60 BUN/Creatinine Ratio 8 L 10 L Glucose 398 H D 185 H D Calculated Osmolality 299 H 289 Lactic Acid 8.5 H* 7.5 H* Calcium 6.4 L* 6.5 L* Corrected Calcium 8.0 L 7.9 L Phosphorus 2.8 3.2 Magnesium 2.6 2.4 Iron 30 L TIBC 120 L Iron Saturation 25 Unsat Iron Binding 90 L Ferritin 218 Total Bilirubin 0.6 AST 33 ALT 58 H Alkaline Phosphatase 105 Lactate Dehydrogenase 630 H Total Creatine Kinase Total Protein 4.0 L Albumin 2.0 L 2.2 L Globulin 1.8 L Albumin/Globulin Ratio 1.2 Vitamin B12 25-OH Vitamin D Total Folate 3.06 L Beta-Hydroxybutyrate/Acetoacetate TSH 0.10 L Free T4 0.76 L PTH Intact 07/09/25 07/09/25 07/09/25 07:49 08:33 08:45 WBC RBC Hgb Hct MCV MCH MCHC RDW Std Deviation Plt Count Neut % (Auto) Lymph % (Auto) [place] % (Auto) Eos % (Auto) Baso % (Auto) Neut # (Auto) Lymph # (Auto) [place] # (Auto) Eos # (Auto) Baso # (Auto) Immature Gran # (Auto) Absolute Nucleated RBC Immature Gran % Nucleated RBC % Smear Path Review Retic Count (auto) Absolute Retic Immature Retic Fraction Retic Hgb Content CHr Puncture Site Left Radial ABG pH 7.43 ABG pCO2 38 ABG pO2 61 L ABG HCO3 25 ABG O2 Saturation 92 ABG Base Excess 1 VBG pH VBG pCO2 VBG pO2 VBG O2 Sat (Eligio) VBG Base Excess FiO2 20 Sodium 144 Potassium 3.4 Chloride 104 Carbon Dioxide 24.2 Anion Gap 16 BUN < 5 L Creatinine 0.6 Estim Creat Clear Calc 110.5 eGFR > 60 BUN/Creatinine Ratio 8 L Glucose 207 H Calculated Osmolality 290 Lactic Acid 5.9 H* 6.2 H* Calcium 6.8 L* Corrected Calcium 7.9 L Phosphorus 2.9 Magnesium Iron TIBC Iron Saturation Unsat Iron Binding Ferritin Total Bilirubin AST ALT Alkaline Phosphatase Lactate Dehydrogenase Total Creatine Kinase Total Protein Albumin 2.6 L Globulin Albumin/Globulin Ratio Vitamin B12 25-OH Vitamin D Total 66.0 H Folate Beta-Hydroxybutyrate/Acetoacetate 0.6 H TSH Free T4 PTH Intact 258.7 H 07/09/25 11:20 WBC RBC Hgb Hct MCV MCH MCHC RDW Std Deviation Plt Count Neut % (Auto) Lymph % (Auto) [place] % (Auto) Eos % (Auto) Baso % (Auto) Neut # (Auto) Lymph # (Auto) [place] # (Auto) Eos # (Auto) Baso # (Auto) Immature Gran # (Auto) Absolute Nucleated RBC Immature Gran % Nucleated RBC % Smear Path Review Retic Count (auto) Absolute Retic Immature Retic Fraction Retic Hgb Content CHr Puncture Site ABG pH ABG pCO2 ABG pO2 ABG HCO3 ABG O2 Saturation ABG Base Excess VBG pH 7.34 VBG pCO2 47 D VBG pO2 54 VBG O2 Sat (Eligio) 85 L VBG Base Excess -1 FiO2 Sodium Potassium Chloride Carbon Dioxide Anion Gap BUN Creatinine Estim Creat Clear Calc eGFR BUN/Creatinine Ratio Glucose Calculated Osmolality Lactic Acid 6.2 H* Calcium Corrected Calcium Phosphorus Magnesium Iron TIBC Iron Saturation Unsat Iron Binding Ferritin Total Bilirubin AST ALT Alkaline Phosphatase Lactate Dehydrogenase Total Creatine Kinase Total Protein Albumin Globulin Albumin/Globulin Ratio Vitamin B12 25-OH Vitamin D Total Folate Beta-Hydroxybutyrate/Acetoacetate TSH Free T4 PTH Intact ABG Interpretation ABG results: 07/07/25 07/09/25 07/09/25 14:14 08:33 11:20 ABG pH 7.43 ABG pCO2 38 ABG pO2 61 L ABG HCO3 25 ABG O2 Saturation 92 ABG Base Excess 1 VBG pH 7.48 7.34 VBG pCO2 24 L 47 D VBG pO2 72 H 54 VBG Base Excess -5 L -1 Assessment & Plan Assessment and plan (1) Metabolic acidosis: Status: Acute Assessment and plan: Intractable metabolic acidosis secondary to lactic acidosis. Etiology unclear. Question abdominal related. Decided to proceed with dialysis. Conventional dialysis ordered via right IJ Vas-Cath. Patient on dialysis. altered level of consciousness noted Hemodialysis for 2 hours, qb 200, 2K, 40 bicarbonate, ultrafiltration 0 L, Epogen 6000, no heparin ordered. Plan of care discussed with the dialysis nurse. Please see dialysis flowsheet for further details. Next dialysis will be scheduled for tomorrow pending lactic acid levels (2) Electrolyte imbalance: Status: Acute Assessment and plan: Suspect related to refeeding syndrome versus underlying sepsis. Source still remains unclear question probably related to abdominal pathology (3) Confusion: Status: Acute Assessment and plan: From underlying sepsis (4) Community acquired pneumonia: Status: Acute Assessment and plan: On broad-spectrum antibiotics (5) Lactic acidosis: Status: Acute Assessment and plan: Severe lactic acidosis. Suspect viral pathology. Although CT showed small subphrenic abscess. Surgery on the case. Spoke to Dr. Matthews-might need to be transferred to ICU for close monitoring. Dr. Hurd on the case. Additional Assessment & Plan Additional Plan: Thank you Chet for allowing me to participate in the care of Ms. Jalloh Quality - progress note Quality Measures Quality Measures: VTE prophylaxis Reason for Continued Stay Reason for Continued Stay: further monitoring
[2025-07-09] MEDS: fentaNYL 2,500 MCG/250 ML BAG 2,500 MCG/250 ML BAG IV (11:36)
--- NOTE | 2025-07-09 11:36 | XR_ITS ---
Examination: AP chest single view Technique one AP portable semiupright chest single view Date and time: July 09, 2025 1145 hours INDICATIONS: Hypoxic respiratory failure postintubation FINDINGS: Interval severe bilateral lung opacity Endotracheal tube tip 15 mm above ravi. Right arm dual-lumen PICC line tip SVC satisfactory position Right internal jugular dialysis catheter tip SVC Orogastric tube sidehole at the GE junction Normal heart size No pneumothorax IMPRESSION: Severe bilateral pneumonia ARDS pattern Advance the orogastric tube 4 cm
[2025-07-09] MEDS: PROPOFOL 1,000 MG IVPB 1,000 MG/100 ML VIAL 2.286 MG IV (11:40)
[2025-07-09] MEDS: MIDAZOLAM INJ 1 MG/ML VIAL 2 ML 2 MG IVP ×2 (11:56→17:18)
[2025-07-09 12:00] LABS: Cocci Serology, IgM Negative (Negative)
[2025-07-09 12:25] LABS: Allen Test Not Performed; Base Excess -1 (-3-3); HCO3 26 mEq/L (20-26); Inspired Oxygen, FIO2 100 %; O2 Saturation 93 % (91-98); PCO2 49 mmHg (32.0-48.0); PO2 72 mmHg (83-108); Puncture Site Left Radial; pH, Arterial 7.33 (7.35-7.45)
[2025-07-09 12:30] LABS: Reflex Lactate? Y
[2025-07-09 13:55] LABS: Phosphorous 2.9 mg/dL (2.4-5.1)
[2025-07-09 14:11] LABS: Lactate (Lactic Acid) 6.3 mMol/L (0.4-2.0)
[2025-07-09] MEDS: HYDROCORTISONE SOD SUCC INJ 100 MG 2 ML VIAL IV (14:35)
[2025-07-09] MEDS: CALCIUM GLUCONATE 10% INJ 1 GM/10 ML VIAL IV (14:35)
--- NOTE | 2025-07-09 15:00 | PD.RESPROC ---
PROCEDURES: Procedure Date / Time 07/09/25 1949 Procedure Narrative Procedure Narrative: Attending Attestation: I was present for the entire procedure. No immediate complications. Minimal blood loss. Arterial Line Indication(s): frequent arterial line sampling, hypoxic resp failure and shock Informed consent obtained: obtained from surrogate decision maker Time out done, and the following verified: correct patient, side and site, procedure, patient position and implants and/or equipment Size (Gauge): 20 Technique used: guide wire technique Post-Procedure: line sutured into place and dry sterile dressing placed Patient tolerated procedure: well EBL(ml): 15 Complications: none Site: left Procedure comment: Done under supervision of Inspector Exhaust Emissions, Dr. Vickey Colón, PGY2
--- NOTE | 2025-07-09 15:06 | PC.RT ---
Patient intubated for impending respiratory failure/hypxia. Assisted MD during intubation. Patient intubated with a 7.5 ETT at 21cm to the teeth with no complications during intubation. Patient placed on ventilator with alarms on and audible.
[2025-07-09 16:23] LABS: Reflex Lactate? Y
[2025-07-09] MEDS: Norepinephrine/D5W 8mg/250ml 8 MG/250 ML BAG 145.733 MG IV (16:47)
--- NOTE | 2025-07-09 16:51 | PC.RT ---
Per , ETT ok in current position and PIPs ok to be in 30s.
[2025-07-09] MEDS: SODIUM CHLORIDE 0.9% 1000 ML 1,000 ML 999 ML IV (17:16)
[2025-07-09] MEDS: MIDAZOLAM/NS 100 MG IVPB 100 MG/100 ML BAG IV (17:19)
[2025-07-09] MEDS: Norepinephrine/D5W 8mg/250ml 8 MG/250 ML BAG 280.035 MG IV (17:46)
[2025-07-09 17:47] LABS: Albumin, Serum 2.0 gm/dL (3.5-5.0); Anion Gap 19 (7-16); BUN/Creatinine Ratio 13 Ratio (12-20); Blood Urea Nitrogen < 5 mg/dL (9-23); Calcium 7.9 mg/dL (8.3-10.6); Calcium (Corrected) 9.5 mg/dL (8.5-10.1); Carbon Dioxide 17.4 mMol/L (20.0-31.0); Chloride 102 mMol/L (98-107); Creatinine (Component) 0.4 mg/dL (0.6-1.3); Estimated Creatinine Clearance 165.7 mL/min (>60); Glucose 232 mg/dL (74-106); Osmolality,Calculated 279 (275-295); Phosphorous 2.8 mg/dL (2.4-5.1); Potassium 4.0 mMol/L (3.4-5.1); Sodium 138 mMol/L (136-145); eGFR > 60 See Note
[2025-07-09 17:52] LABS: Lactate (Lactic Acid) 12.2 mMol/L (0.4-2.0)
[2025-07-09 18:12] LABS: Alanine Aminotransferase 46 U/L (10-49); Albumin, Serum 2.0 gm/dL (3.5-5.0); Albumin/Globulin Ratio 1.8 (1.2-2.2); Alkaline Phosphatase 107 U/L (46-116); Anion Gap 19 (7-16); Aspartate Amino Transferase 53 U/L (0-34); BUN/Creatinine Ratio 13 Ratio (12-20); Bilirubin,Total 0.4 mg/dL (0.3-1.2); Blood Urea Nitrogen < 5 mg/dL (9-23); Calcium 7.8 mg/dL (8.3-10.6); Calcium (Corrected) 9.4 mg/dL (8.5-10.1); Carbon Dioxide 17.6 mMol/L (20.0-31.0); Chloride 101 mMol/L (98-107); Creatinine (Component) 0.4 mg/dL (0.6-1.3); Estimated Creatinine Clearance 165.7 mL/min (>60); Globulin 1.1 gm/dL (2.3-3.5); Glucose 231 mg/dL (74-106); Magnesium 1.9 mg/dL (1.6-2.6); Osmolality,Calculated 279 (275-295); Phosphorous 2.8 mg/dL (2.4-5.1); Potassium 4.4 mMol/L (3.4-5.1); Sodium 138 mMol/L (136-145); Total Protein 3.1 gm/dL (5.7-8.2); eGFR > 60 See Note
[2025-07-09] MEDS: POTASSIUM ACET IV (18:17)
[2025-07-09] MEDS: POTASSIUM PHOS IV (18:17)
[2025-07-09] MEDS: CALCIUM GLUCONATE IV (18:17)
[2025-07-09] MEDS: [UNRECOGNIZED DRUG - OTHER] IV (18:17)
[2025-07-09 18:31] LABS: Base Excess, Venous -10 (-3-3); O2 Saturation, Venous 98 % (96-97); PCO2, Venous 50 mmHg (36-56); PO2, Venous 102 mmHg (15-58); pH, Venous 7.16 (7.33-7.66)
[2025-07-09] MEDS: Norepinephrine/D5W 8mg/250ml 8 MG/250 ML BAG 274.32 MG IV ×2 (18:42→19:37)
[2025-07-09] MEDS: VANCOMYCIN/WATER 1GM IVPB 200 ML IV (18:43)
[2025-07-09] MEDS: VASOPRESSIN IN NS IVPB 20 UNIT/100 ML BAG 9 UNIT IV ×2 (18:45→23:00)
[2025-07-09 18:49] LABS: Basophils # (Auto) 0.0 Thou/mm3 (0.0-0.2); Basophils % (Auto) 0 % (0-2.5); Eosinophils # (Auto) 0.0 Thou/mm3 (0.0-0.5); Eosinophils % (Auto) 0 % (0-10); Hematocrit 22.3 % (36.0-46.0); Immature Granulocytes Auto 0.04 Thou/mm3 (0.00-0.00); Lymphocytes # (Auto) 0.9 Thou/mm3 (1.0-4.8); Lymphocytes % (Auto) 6 % (10-50); Mean Corpuscular HGB Conc 31.4 g/dl (31.0-37.0); Mean Corpuscular Hemoglobin 32.6 pg (25.0-35.0); Mean Corpuscular Volume 104 fL (80-100); Monocytes # (Auto) 0.3 Thou/mm3 (0.0-0.8); Monocytes % (Auto) 2 % (0-12); Neutrophils # (Auto) 14.2 Thou/mm3 (1.8-7.7); Neutrophils % (Auto) 92 % (37-80); Nucleated Red Blood Cell # 0.08 Thou/mm3 (0.00-0.00); Nucleated Red Blood Cell % 1 /100 WBC (0); Platelet Count 96 Thou/mm3 (140-440); RDW Standard Deviation 70.5 fL (36.4-46.3); Red Blood Count 2.15 Miln/mm3 (4.00-5.20); White Blood Count 15.4 Thou/mm3 (3.6-11.0)
[2025-07-09 18:58] LABS: Base Excess -11 (-3-3); HCO3 18 mEq/L (20-26); O2 Saturation 98 % (91-98); PCO2 53 mmHg (32.0-48.0); PO2 113 mmHg (83-108)
[2025-07-09 19:03] LABS: Inspired Oxygen, FIO2 100 %; pH, Arterial 7.13 (7.35-7.45)
[2025-07-09 19:04] LABS: Allen Test Performed/OK; Puncture Site Arterial Line
[2025-07-09 19:07] LABS: Phosphorous 2.9 mg/dL (2.4-5.1)
[2025-07-09 19:11] LABS: Hemoglobin 7.0 g/dL (12.0-16.0)
[2025-07-09 19:27] LABS: INR 2.1 (0.9-1.3); Prothrombin Time 21.7 Seconds (9.0-12.2)
[2025-07-09 19:32] LABS: Partial Thromboplastin Time > 139.0 Seconds (22.0-36.0)
[2025-07-09] MEDS: HEPARIN SOD INJ 1000 UNIT/ML VIAL 10 ML 400 UNIT INDWELLCAT (19:33)
[2025-07-09 19:34] LABS: Fibrinogen 82 mg/dL (175-375)
[2025-07-09 20:19] LABS: Reflex Lactate? Y
--- NOTE | 2025-07-09 20:22 | ESPR_ITS ---
Documentation for date of: 07/09/25 Subjective Subjective Interval history: 55-year-old female with significant past medical history of hypertension, hypothyroidism, rheumatoid arthritis on chronic steroid therapy, [place]-en-Y gastrostomy 20 years ago, status postrepair of perforated gastrojejunostomy, Gerson patch, washout, drain placement in 11/23/2024 which was later complicated by left subphrenic abscess following which a drain was placed at that time for drainage and was removed during that hospitalization presented to the hospital with chief complaints of altered mental status and admitted on 07/04/2025 to the floors in view of suspected possible sepsis likely due to community-acquired pneumonia versus subphrenic abscess. Patient was noted to have lactic acidosis since the time of admission but was not sure of any other sites of infection except for the ongoing subphrenic abscess since November which is stable per imaging. Patient is treated with Zosyn, multivitamins since the time of admission. General surgeon, Dr. Shepherd was consulted and she recommended no surgical intervention at this point of time. Patient was started on levothyroxine due to hypothyroidism. Patient was noted to be extremely malnourished also had history of poor oral intake before coming to the hospital. On 07/08/2025, PICC line was placed to start TPN as patient is not able to tolerate oral feeds. Dialysis catheter was placed on the same day in the anticipation of HD/CRRT in view of lactic acidosis. Patient was found to be alert, awake and appropriately responding to questions, able to make conversations at the time of line placement. On 07/08/2025 at around 6:50 PM, rapid response was called in view of altered mental status and found to be tachypneic, tachycardic, noted to have blood sugar of 36 for which patient was given a dose of D50 and upgraded to ICU for further management. 07/09/2025: Patient is seen and examined at bedside in the ICU and noted to be stuporous, moaning and not responding to any verbal stimuli. Overnight, patient received 1.5 L of fluid and albumin. Vitals are stable and saturating on [address] chest/abdomen/pelvis with contrast is ordered to look further source of the infection and to rule out any mesenteric ischemia in view of ongoing lactic acidosis. After coming from the imaging, patient noted to have more oxygen needs and noted to have increased work of breathing. Also noted to have multiple bilateral opacities suggestive of ARDS picture for which patient was given rocuronium, etomidate and intubated with 7.5 ET tube successfully. Patient was started on propofol, fentanyl and started on vasopressors as patient's MAP is less than 65 mmHg. [employer] Supervisor, Dr. glover was consulted and started on CRRT. Later arterial line is placed for continuous blood pressure monitoring. Repeat ABG is ordered and will continue to monitor labs. Patient is noted to have poor prognosis at this point of time in view of worsening lactic acidosis, acute hypoxic respiratory failure and shock, likely septic. Vancomycin is added Exam Vital Signs Temp Pulse Resp BP Pulse Ox O2 Del Method O2 Flow Rate 97.4 F 115 H 19 62/47 L 94 L Nasal Cannula 2 07/09/25 20:01 07/09/25 20:01 07/09/25 20:01 07/09/25 20:00 07/09/25 20:01 07/08/25 16:00 07/09/25 06:24 FiO2 100 07/09/25 16:00 Narrative Exam General: Sedated and mechanically ventilated HEENT: Normocephalic, atraumatic, mucous membranes moist. Heart: Regular rate and rhythm, no murmurs. Lungs: Clear to auscultation with no wheezing or crackles. Abdomen: Soft, nondistended, nontender, positive bowel sounds. ?No guarding or rebound tenderness. noted midline scarring and defect from previous drain Neurologic: Sedated and mechanically ventilated Extremities: noted Anasarca and ecchymoses over both upper extremities Skin: ecchymoses over both upper extremities Objective Labs 07/09/25 18:02 07/09/25 23:30 Labs: Laboratory Results - last 24 hr 07/08/25 07/09/25 07/09/25 21:35 00:48 04:38 WBC 9.9 RBC 2.57 L Hgb 8.5 L Hct 25.2 L MCV 98 MCH 33.1 MCHC 33.7 RDW Std Deviation 63.9 H Plt Count 164 Neut % (Auto) 87 H Lymph % (Auto) 10 [place] % (Auto) 3 Eos % (Auto) 0 Baso % (Auto) 0 Neut # (Auto) 8.6 H Lymph # (Auto) 1.0 [place] # (Auto) 0.3 Eos # (Auto) 0.0 Baso # (Auto) 0.0 Immature Gran # (Auto) 0.05 H Absolute Nucleated RBC 0.00 Immature Gran % 1 H Nucleated RBC % 0 Smear Path Review Sent to Pathologist Retic Count (auto) 3.4 H Absolute Retic 46.2 Immature Retic Fraction 31.1 H Retic Hgb Content CHr 30.1 PT INR APTT Fibrinogen Puncture Site ABG pH ABG pCO2 ABG pO2 ABG HCO3 ABG O2 Saturation ABG Base Excess VBG pH VBG pCO2 VBG pO2 VBG O2 Sat (Eligio) VBG Base Excess FiO2 Sodium 143 144 Potassium 3.7 D 3.5 Chloride 101 104 Carbon Dioxide 25.8 23.0 Anion Gap 16 17 H BUN < 5 L < 5 L Creatinine 0.6 0.5 L Estim Creat Clear Calc 108.6 132.6 eGFR > 60 > 60 BUN/Creatinine Ratio 8 L 10 L Glucose 398 H D 185 H D Calculated Osmolality 299 H 289 Lactic Acid 8.5 H* 7.5 H* Calcium 6.4 L* 6.5 L* Corrected Calcium 8.0 L 7.9 L Phosphorus 2.8 3.2 Magnesium 2.6 2.4 Iron 30 L TIBC 120 L Iron Saturation 25 Unsat Iron Binding 90 L Ferritin 218 Total Bilirubin 0.6 AST 33 ALT 58 H Alkaline Phosphatase 105 Lactate Dehydrogenase 630 H Total Protein 4.0 L Albumin 2.0 L 2.2 L Globulin 1.8 L Albumin/Globulin Ratio 1.2 25-OH Vitamin D Total Folate 3.06 L Beta-Hydroxybutyrate/Acetoacetate TSH 0.10 L Free T4 0.76 L PTH Intact Coccidioides IgM Ab 07/09/25 07/09/25 07/09/25 07:49 08:33 08:45 WBC RBC Hgb Hct MCV MCH MCHC RDW Std Deviation Plt Count Neut % (Auto) Lymph % (Auto) [place] % (Auto) Eos % (Auto) Baso % (Auto) Neut # (Auto) Lymph # (Auto) [place] # (Auto) Eos # (Auto) Baso # (Auto) Immature Gran # (Auto) Absolute Nucleated RBC Immature Gran % Nucleated RBC % Smear Path Review Retic Count (auto) Absolute Retic Immature Retic Fraction Retic Hgb Content CHr PT INR APTT Fibrinogen Puncture Site Left Radial ABG pH 7.43 ABG pCO2 38 ABG pO2 61 L ABG HCO3 25 ABG O2 Saturation 92 ABG Base Excess 1 VBG pH VBG pCO2 VBG pO2 VBG O2 Sat (Eligio) VBG Base Excess FiO2 20 Sodium 144 Potassium 3.4 Chloride 104 Carbon Dioxide 24.2 Anion Gap 16 BUN < 5 L Creatinine 0.6 Estim Creat Clear Calc 110.5 eGFR > 60 BUN/Creatinine Ratio 8 L Glucose 207 H Calculated Osmolality 290 Lactic Acid 5.9 H* 6.2 H* Calcium 6.8 L* Corrected Calcium 7.9 L Phosphorus 2.9 Magnesium Iron TIBC Iron Saturation Unsat Iron Binding Ferritin Total Bilirubin AST ALT Alkaline Phosphatase Lactate Dehydrogenase Total Protein Albumin 2.6 L Globulin Albumin/Globulin Ratio 25-OH Vitamin D Total 66.0 H Folate Beta-Hydroxybutyrate/Acetoacetate 0.6 H TSH Free T4 PTH Intact 258.7 H Coccidioides IgM Ab Negative 07/09/25 07/09/25 07/09/25 11:20 12:10 12:49 WBC RBC Hgb Hct MCV MCH MCHC RDW Std Deviation Plt Count Neut % (Auto) Lymph % (Auto) [place] % (Auto) Eos % (Auto) Baso % (Auto) Neut # (Auto) Lymph # (Auto) [place] # (Auto) Eos # (Auto) Baso # (Auto) Immature Gran # (Auto) Absolute Nucleated RBC Immature Gran % Nucleated RBC % Smear Path Review Retic Count (auto) Absolute Retic Immature Retic Fraction Retic Hgb Content CHr PT INR APTT Fibrinogen Puncture Site Left Radial ABG pH 7.33 L D ABG pCO2 49 H D ABG pO2 72 L ABG HCO3 26 ABG O2 Saturation 93 ABG Base Excess -1 VBG pH 7.34 VBG pCO2 47 D VBG pO2 54 VBG O2 Sat (Eligio) 85 L VBG Base Excess -1 FiO2 100 Sodium Potassium Chloride Carbon Dioxide Anion Gap BUN Creatinine Estim Creat Clear Calc eGFR BUN/Creatinine Ratio Glucose Calculated Osmolality Lactic Acid 6.2 H* 6.3 H* Calcium Corrected Calcium Phosphorus 2.9 Magnesium Iron TIBC Iron Saturation Unsat Iron Binding Ferritin Total Bilirubin AST ALT Alkaline Phosphatase Lactate Dehydrogenase Total Protein Albumin Globulin Albumin/Globulin Ratio 25-OH Vitamin D Total Folate Beta-Hydroxybutyrate/Acetoacetate TSH Free T4 PTH Intact Coccidioides IgM Ab 07/09/25 07/09/25 07/09/25 17:03 17:03 17:03 WBC RBC Hgb Hct MCV MCH MCHC RDW Std Deviation Plt Count Neut % (Auto) Lymph % (Auto) [place] % (Auto) Eos % (Auto) Baso % (Auto) Neut # (Auto) Lymph # (Auto) [place] # (Auto) Eos # (Auto) Baso # (Auto) Immature Gran # (Auto) Absolute Nucleated RBC Immature Gran % Nucleated RBC % Smear Path Review Retic Count (auto) Absolute Retic Immature Retic Fraction Retic Hgb Content CHr PT INR APTT Fibrinogen Puncture Site ABG pH ABG pCO2 ABG pO2 ABG HCO3 ABG O2 Saturation ABG Base Excess VBG pH VBG pCO2 VBG pO2 VBG O2 Sat (Eligio) VBG Base Excess FiO2 Sodium 138 138 Potassium 4.0 D 4.4 Chloride 102 Carbon Dioxide Anion Gap BUN Creatinine Estim Creat Clear Calc eGFR BUN/Creatinine Ratio Glucose Calculated Osmolality Lactic Acid Calcium Corrected Calcium Phosphorus Magnesium Iron TIBC Iron Saturation Unsat Iron Binding Ferritin Total Bilirubin AST ALT Alkaline Phosphatase Lactate Dehydrogenase Total Protein Albumin Globulin Albumin/Globulin Ratio 25-OH Vitamin D Total Folate Beta-Hydroxybutyrate/Acetoacetate TSH Free T4 PTH Intact Coccidioides IgM Ab 07/09/25 07/09/25 07/09/25 17:03 17:03 17:03 WBC RBC Hgb Hct MCV MCH MCHC RDW Std Deviation Plt Count Neut % (Auto) Lymph % (Auto) [place] % (Auto) Eos % (Auto) Baso % (Auto) Neut # (Auto) Lymph # (Auto) [place] # (Auto) Eos # (Auto) Baso # (Auto) Immature Gran # (Auto) Absolute Nucleated RBC Immature Gran % Nucleated RBC % Smear Path Review Retic Count (auto) Absolute Retic Immature Retic Fraction Retic Hgb Content CHr PT INR APTT Fibrinogen Puncture Site ABG pH ABG pCO2 ABG pO2 ABG HCO3 ABG O2 Saturation ABG Base Excess VBG pH VBG pCO2 VBG pO2 VBG O2 Sat (Eligio) VBG Base Excess FiO2 Sodium Potassium Chloride 101 Carbon Dioxide 17.4 L 17.6 L Anion Gap 19 H 19 H BUN < 5 L Creatinine Estim Creat Clear Calc eGFR BUN/Creatinine Ratio Glucose Calculated Osmolality Lactic Acid Calcium Corrected Calcium Phosphorus Magnesium Iron TIBC Iron Saturation Unsat Iron Binding Ferritin Total Bilirubin AST ALT Alkaline Phosphatase Lactate Dehydrogenase Total Protein Albumin Globulin Albumin/Globulin Ratio 25-OH Vitamin D Total Folate Beta-Hydroxybutyrate/Acetoacetate TSH Free T4 PTH Intact Coccidioides IgM Ab 07/09/25 07/09/25 07/09/25 17:03 17:03 17:03 WBC RBC Hgb Hct MCV MCH MCHC RDW Std Deviation Plt Count Neut % (Auto) Lymph % (Auto) [place] % (Auto) Eos % (Auto) Baso % (Auto) Neut # (Auto) Lymph # (Auto) [place] # (Auto) Eos # (Auto) Baso # (Auto) Immature Gran # (Auto) Absolute Nucleated RBC Immature Gran % Nucleated RBC % Smear Path Review Retic Count (auto) Absolute Retic Immature Retic Fraction Retic Hgb Content CHr PT INR APTT Fibrinogen Puncture Site ABG pH ABG pCO2 ABG pO2 ABG HCO3 ABG O2 Saturation ABG Base Excess VBG pH VBG pCO2 VBG pO2 VBG O2 Sat (Eligio) VBG Base Excess FiO2 Sodium Potassium Chloride Carbon Dioxide Anion Gap BUN < 5 L Creatinine 0.4 L 0.4 L Estim Creat Clear Calc 165.7 165.7 eGFR > 60 BUN/Creatinine Ratio Glucose Calculated Osmolality Lactic Acid Calcium Corrected Calcium Phosphorus Magnesium Iron TIBC Iron Saturation Unsat Iron Binding Ferritin Total Bilirubin AST ALT Alkaline Phosphatase Lactate Dehydrogenase Total Protein Albumin Globulin Albumin/Globulin Ratio 25-OH Vitamin D Total Folate Beta-Hydroxybutyrate/Acetoacetate TSH Free T4 PTH Intact Coccidioides IgM Ab 07/09/25 07/09/25 07/09/25 17:03 17:03 17:03 WBC RBC Hgb Hct MCV MCH MCHC RDW Std Deviation Plt Count Neut % (Auto) Lymph % (Auto) [place] % (Auto) Eos % (Auto) Baso % (Auto) Neut # (Auto) Lymph # (Auto) [place] # (Auto) Eos # (Auto) Baso # (Auto) Immature Gran # (Auto) Absolute Nucleated RBC Immature Gran % Nucleated RBC % Smear Path Review Retic Count (auto) Absolute Retic Immature Retic Fraction Retic Hgb Content CHr PT INR APTT Fibrinogen Puncture Site ABG pH ABG pCO2 ABG pO2 ABG HCO3 ABG O2 Saturation ABG Base Excess VBG pH VBG pCO2 VBG pO2 VBG O2 Sat (Eligio) VBG Base Excess FiO2 Sodium Potassium Chloride Carbon Dioxide Anion Gap BUN Creatinine Estim Creat Clear Calc eGFR > 60 BUN/Creatinine Ratio 13 13 Glucose 232 H 231 H Calculated Osmolality 279 Lactic Acid Calcium Corrected Calcium Phosphorus Magnesium Iron TIBC Iron Saturation Unsat Iron Binding Ferritin Total Bilirubin AST ALT Alkaline Phosphatase Lactate Dehydrogenase Total Protein Albumin Globulin Albumin/Globulin Ratio 25-OH Vitamin D Total Folate Beta-Hydroxybutyrate/Acetoacetate TSH Free T4 PTH Intact Coccidioides IgM Ab 07/09/25 07/09/25 07/09/25 17:03 17:03 17:03 WBC RBC Hgb Hct MCV MCH MCHC RDW Std Deviation Plt Count Neut % (Auto) Lymph % (Auto) [place] % (Auto) Eos % (Auto) Baso % (Auto) Neut # (Auto) Lymph # (Auto) [place] # (Auto) Eos # (Auto) Baso # (Auto) Immature Gran # (Auto) Absolute Nucleated RBC Immature Gran % Nucleated RBC % Smear Path Review Retic Count (auto) Absolute Retic Immature Retic Fraction Retic Hgb Content CHr PT INR APTT Fibrinogen Puncture Site ABG pH ABG pCO2 ABG pO2 ABG HCO3 ABG O2 Saturation ABG Base Excess VBG pH VBG pCO2 VBG pO2 VBG O2 Sat (Eligio) VBG Base Excess FiO2 Sodium Potassium Chloride Carbon Dioxide Anion Gap BUN Creatinine Estim Creat Clear Calc eGFR BUN/Creatinine Ratio Glucose Calculated Osmolality 279 Lactic Acid 12.2 H* Calcium 7.9 L 7.8 L Corrected Calcium 9.5 D 9.4 Phosphorus 2.8 Magnesium Iron TIBC Iron Saturation Unsat Iron Binding Ferritin Total Bilirubin AST ALT Alkaline Phosphatase Lactate Dehydrogenase Total Protein Albumin Globulin Albumin/Globulin Ratio 25-OH Vitamin D Total Folate Beta-Hydroxybutyrate/Acetoacetate TSH Free T4 PTH Intact Coccidioides IgM Ab 07/09/25 07/09/25 07/09/25 17:03 17:03 18:02 WBC 15.4 H D RBC 2.15 L Hgb 7.0 L Hct 22.3 L MCV 104 H MCH 32.6 MCHC 31.4 RDW Std Deviation 70.5 H Plt Count 96 L D Neut % (Auto) 92 H Lymph % (Auto) 6 L [place] % (Auto) 2 Eos % (Auto) 0 Baso % (Auto) 0 Neut # (Auto) 14.2 H Lymph # (Auto) 0.9 L [place] # (Auto) 0.3 Eos # (Auto) 0.0 Baso # (Auto) 0.0 Immature Gran # (Auto) 0.04 H Absolute Nucleated RBC 0.08 H Immature Gran % 0 Nucleated RBC % 1 H Smear Path Review Retic Count (auto) Absolute Retic Immature Retic Fraction Retic Hgb Content CHr PT 21.7 H D INR 2.1 H APTT > 139.0 H* D Fibrinogen 82 L* Puncture Site ABG pH ABG pCO2 ABG pO2 ABG HCO3 ABG O2 Saturation ABG Base Excess VBG pH 7.16 L VBG pCO2 50 VBG pO2 102 H D VBG O2 Sat (Eligio) 98 H VBG Base Excess -10 L FiO2 Sodium Potassium Chloride Carbon Dioxide Anion Gap BUN Creatinine Estim Creat Clear Calc eGFR BUN/Creatinine Ratio Glucose Calculated Osmolality Lactic Acid Calcium Corrected Calcium Phosphorus 2.8 Magnesium 1.9 Iron TIBC Iron Saturation Unsat Iron Binding Ferritin Total Bilirubin 0.4 AST 53 H ALT 46 Alkaline Phosphatase 107 Lactate Dehydrogenase Total Protein 3.1 L Albumin 2.0 L D 2.0 L Globulin 1.1 L Albumin/Globulin Ratio 1.8 25-OH Vitamin D Total Folate Beta-Hydroxybutyrate/Acetoacetate TSH Free T4 PTH Intact Coccidioides IgM Ab 07/09/25 07/09/25 18:03 18:48 WBC RBC Hgb Hct MCV MCH MCHC RDW Std Deviation Plt Count Neut % (Auto) Lymph % (Auto) [place] % (Auto) Eos % (Auto) Baso % (Auto) Neut # (Auto) Lymph # (Auto) [place] # (Auto) Eos # (Auto) Baso # (Auto) Immature Gran # (Auto) Absolute Nucleated RBC Immature Gran % Nucleated RBC % Smear Path Review Retic Count (auto) Absolute Retic Immature Retic Fraction Retic Hgb Content CHr PT INR APTT Fibrinogen Puncture Site Arterial Line ABG pH 7.13 L* D ABG pCO2 53 H ABG pO2 113 H D ABG HCO3 18 L ABG O2 Saturation 98 ABG Base Excess -11 L VBG pH VBG pCO2 VBG pO2 VBG O2 Sat (Eligio) VBG Base Excess FiO2 100 Sodium Potassium Chloride Carbon Dioxide Anion Gap BUN Creatinine Estim Creat Clear Calc eGFR BUN/Creatinine Ratio Glucose Calculated Osmolality Lactic Acid Calcium Corrected Calcium Phosphorus 2.9 Magnesium Iron TIBC Iron Saturation Unsat Iron Binding Ferritin Total Bilirubin AST ALT Alkaline Phosphatase Lactate Dehydrogenase Total Protein Albumin Globulin Albumin/Globulin Ratio 25-OH Vitamin D Total Folate Beta-Hydroxybutyrate/Acetoacetate TSH Free T4 PTH Intact Coccidioides IgM Ab ABG Interpretation ABG results: 07/07/25 07/09/25 07/09/25 14:14 08:33 11:20 ABG pH 7.43 ABG pCO2 38 ABG pO2 61 L ABG HCO3 25 ABG O2 Saturation 92 ABG Base Excess 1 VBG pH 7.48 7.34 VBG pCO2 24 L 47 D VBG pO2 72 H 54 VBG Base Excess -5 L -1 07/09/25 07/09/25 07/09/25 12:10 18:02 18:48 ABG pH 7.33 L D 7.13 L* D ABG pCO2 49 H D 53 H ABG pO2 72 L 113 H D ABG HCO3 26 18 L ABG O2 Saturation 93 98 ABG Base Excess -1 -11 L VBG pH 7.16 L VBG pCO2 50 VBG pO2 102 H D VBG Base Excess -10 L Quality Measures Quality Measures VTE prophylaxis Assessment & Plan Assessment Current Active Medications: Generic Name Dose Route Start Last Admin Trade Name Freq PRN Reason Stop Dose Admin Acetaminophen 650 mg 07/04/25 18:33 Acetaminophen 325 Mg Tablet PO 08/03/25 18:32 Q6H PRN Fever >100 or pain 1-3 Folic Acid 1 mg 07/04/25 20:45 07/08/25 19:24 Folic Acid Inj 1 Mg/0.2 Ml IVP 08/03/25 20:44 Not Given QDAY [facility] Heparin Sodium (Porcine) 5,000 unit 07/04/25 18:45 07/09/25 19:26 Heparin Sod Inj 5000 Unit/Ml Vial SC 07/18/25 18:44 Not Given Q12H [facility] Hydrocortisone Sodium Succinate 50 mg 07/10/25 00:00 Hydrocortisone Sod Succ Inj 100 Mg 2 Ml Vial IV 08/09/25 00:00 Q6HR ZAK Piperacillin/Tazobactam/Dextrose 3.375 gm in 50 mls @ 12.5 mls/hr 07/04/25 22:00 07/09/25 15:03 Zosyn IV 07/11/25 21:59 12.5 mls/hr Q8HR ZAK Administration Protocol Albumin Human 25 gm in 100 mls @ 100 mls/min 07/08/25 16:36 Albuminar-25 Ivpb IV PRN PRN DIALYSIS Propofol 1,000 mg in 100 mls @ 2.286 mls/hr 07/09/25 11:07 07/09/25 14:35 Diprivan Ivpb IV 08/08/25 11:06 0 mcg/kg/min .Q24H PRN 0 mls/hr PER PROTOCOL Titration Protocol 5 MCG/KG/MIN Fentanyl Citrate 2,500 mcg in 250 mls @ 2.5 mls/hr 07/09/25 11:08 07/09/25 18:00 Sublimaze Inj 2,500 Mcg/250 Ml Bag IV 07/14/25 11:07 175 mcg/hr .Q24H PRN 17.5 mls/hr PER PROTOCOL Titration Protocol 25 MCG/HR Vasopressin/Sodium Chloride 20 unit in 100 mls @ 9 mls/hr 07/09/25 11:42 Vasostrict/Ns Ivpb IV 08/08/25 11:41 .Q11H7M PRN PER PROTOCOL Protocol 0.03 UNIT/MIN Potassium Acetate 40 meq/ 1,058 mls @ 30 mls/hr 07/09/25 18:00 07/09/25 18:17 Potassium Phosphate 24 mmol/ IV 07/10/25 17:59 30 mls/hr Calcium Gluconate 2 gm/ QDAY@1800 ZAK Administration Multivitamins/Minerals 10 ml/ Amino Acids Midazolam HCl 100 mg in 100 mls @ 1 mls/hr 07/09/25 17:15 07/09/25 18:00 Versed Pf Inj In Ns Premix IV 07/14/25 17:14 1 mg/hr .Q24H PRN 1 mls/hr PER PROTOCOL Titration Protocol 1 MG/HR Albumin Human 12.5 gm in 250 mls @ 100 mls/hr 07/09/25 19:31 Albuminar-5 Ivpb IV 07/09/25 22:00 X1 ONE Albumin Human 12.5 gm in 250 mls @ 100 mls/hr 07/09/25 19:32 Albuminar-5 Ivpb IV 07/09/25 22:01 X1 ONE Norepinephrine Bitartrate 16 mg in 250 mls @ 3.572 mls/hr 07/09/25 19:34 Levophed In Ns 16mg/250ml IV 08/08/25 19:33 .Q24H PRN PER protocol Protocol 0.05 MCG/KG/MIN Norepinephrine Bitartrate 32 500 mls @ 3.572 mls/hr 07/09/25 19:56 mg/ Sodium Chloride IV 08/08/25 19:55 .Q24H PRN PER protocol Protocol 0.05 MCG/KG/MIN Ondansetron HCl 4 mg 07/04/25 14:03 07/04/25 20:19 Ondansetron Inj 2 Mg/Ml Inj 2 Ml IVP 08/03/25 14:02 4 mg Q6HR PRN Administration NAUSEA OR VOMITING Pantoprazole Sodium 40 mg 07/05/25 09:00 07/09/25 09:44 Pantoprazole Inj 40 Mg Vial IVP 08/04/25 08:59 40 mg QDAY ZAK Administration Pharmacy Consult 1 each 07/09/25 10:11 Pha To Consult Parenteral Nutr 1 Each Each XX 08/08/25 10:10 PRN PRN CONSULT Pharmacy Consult 1 each 07/10/25 09:00 Vancomycin Pharmacy To Dose 1 Each Each IV 08/09/25 08:59 QDAY ZAK Pyridoxine HCl 100 mg 07/09/25 09:00 Pyridoxine Inj 100 Mg/Ml Vial IM 07/14/25 08:59 QDAY ZAK Thiamine HCl 100 mg 07/04/25 20:45 07/08/25 19:24 Thiamine Inj 100 Mg/Ml Vial 2 Ml IVP 08/03/25 20:44 Not Given QDAY ZAK Plan The patient is a 55-year-old female with past medical history of hypertension, hypothyroidism, rheumatoid arthritis, on chronic steroid therapy, gastric bypass, perforated gastric jejunostomy s/p repair presented initially to the ED on 07/04/2025 with chief complaint of AMS. Neuro: #Acute encephalopathy DDx: Multifactorial, severe lactic acidosis versus shock, likely septic versus acute hypoxic respiratory failure - Patient presented to the hospital with a chief complaint of altered sensorium and noted to have lactate of 4.8 following which she was resuscitated with fluids and noted to have improvement in her lactate, but slowly trended up to 9.8 as of 07/08/2025 - Patient had left subphrenic abscess which is stable in size since November 2024 which could be the source of infection from superimposed infection on that abscess as patient is immunocompromise secondary to rheumatoid arthritis on steroid and from malnutrition - Also noted to have blood sugar of 36 at the time of upgrade to the ICU on 07/08/2025 likely from poor oral intake and ongoing suspected possible infection - On 07/09/2025, patient oxygen needs suddenly increased for which patient was intubated Dx: - Lactate at the time of admission is 4.8 and as of 07/09/2025, 6.3 - CT chest/abdomen pelvis CT with contrast showed severe ARDS pattern throughout the lungs, 15 mm left subphrenic abscess, nonobstructing left renal calculi with trace ascites. - As of 07/09/2025, noted to have MAP less than 65 mmHg and was started on vasopressors - Pro-Tello as of 07/04/2025 is 39.9 - Tested positive for MRSA and no growth noted on blood cultures and urine cultures. Rx: - Will continue vancomycin and Zosyn - Will continue vasopressors and titrate accordingly - 1 dose of hydrocortisone 100 mg IV is given followed by 50 mg every 6 hourly - Started on CRRT - Will continue mechanical ventilation - Started on propofol, fentanyl and midazolam drip CVS: # Shock DDx: Septic versus hypovolemic - Sepsis, likely-patient is immunocompromised in the setting of steroid use for rheumatoid arthritis and malnutrition from [place] and noted to have subphrenic abscess since November 2024 despite undergoing abscess drainage and noted to have Pro-Tello of 39.9 at the time of admission, noted to have febrile episode of 101.3 degrees on 8 on the day of admission. Later also found to have hypothermia episodes with temperature of 96.6 ?F which could be suggestive of sepsis in the setting of subphrenic abscess which could be the source and also had suspicion of microleak from [place] gastrojejunostomy site. - Hypovolemic: Could have mild component of hypovolemia in the setting of poor oral intake. Patient was resuscitated with 1.5 L overnight on the day of ICU admission and was given 2 L of fluid after intubation, which was corrected Dx: - Noted to have subphrenic abscess, [address] abdomen/pelvis on 07/09/2025 - lactate as of 07/09/2025 is 14.3 -Pro-Tello is 39.9 Rx: - Started on vasopressors, vancomycin and Zosyn - A-line was placed, will continue blood pressure monitoring - Will replete fluids as needed - Patient is likely to have poor prognosis in the setting of severe shock requiring high doses of vasopressors - DIC panel was sent in view of ongoing suspected sepsis and ARDS - Started on hydrocortisone 50 mg every 6 hourly # Sinus tachycardia - Patient is noted to have heart rate of 120 to 130 bpm since hospital admission - Likely from underlying ongoing sepsis - EKG did not show any arrhythmias except for sinus tachycardia - Will continue to monitor vitals Respiratory # Acute hypoxic respiratory failure # ARDS - Patient suddenly noted to have increased oxygen demands on 07/09/2025 - CT chest done at that time showed severe ARDS pattern following which patient was immediately sedated, intubated and placed on mechanical ventilator Plan -Will continue sedation mechanical ventilation with PEEP of 10, tidal volume 400, FiO2 100%, respiratory rate 24 - Will do ABG as needed GI: # Subphrenic abscess -Patient developed subphrenic abscess after repair of the perforation gastrojejunostomy which was drained in 11/2024 - Noted to have subphrenic abscess of around 15 mm since then - CT chest/abdomen/pelvis with contrast done on 07/09/2025 showed 15 mm abscess - General Surgeon, Dr. Shepherd and radiologist, Dr. Giles were consulted but recommended no surgical drainage as of now Plan - Will continue vancomycin and Zosyn # History of Lynn-en-Y bypass # History of s/p Lynn-en-Y gastrojejunostomy repair, 11/2024 - Also concern to have anastomotic leak at the site of gastrojejunostomy - Consulted export agent, Dr. Palacios and patient will be scheduled for EGD later in the day - N.p.o. #Hypoproteinemia #Hypoalbuminemia #Hypoglobulinemia Likely secondary to nutritional deficiencies Daily albumin 25 g IV - Nutritional consult done - Started on TPN Renal: # High anion gap metabolic acidosis # Severe lactic acidosis - Patient is noted to haveLactate of 6.2 and anion gap 19, likely due to ongoing sepsis Plan - Consulted application security specialist, Dr. glover for CRRT in view of hemodynamic instability and was started on it - Will repeat renal panel every 6 hourly Endocrinology: #Hypothyroidism The patient initially presented with hyperthyroidism, improved, and currently again placed back on levothyroxine 70 mcg daily as patient is n.p.o. 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 #Chronic use of steroid for rheumatoid arthritis - Continue with home dose of steroid - May consider DEXA scan in send outpatient basis for possible osteoporosis in the setting of long-term steroid use Rheumatology: #Rheumatoid arthritis - Continue with home dose of steroids - Follow-up outpatient with wood treating inspector Hematology: #Normocytic anemia Likely nutritional deficiency in the setting of gastric bypass - Ordered iron panel, ferritin, folate, already has high vitamin B12, reticulocyte count, LDH, peripheral smear ID: #Sepsis 2/ #Subphrenic abscess - Currently on Zosyn and vancomycin - May require further drainage as the lactic acidosis is likely secondary to this underlying condition, and the source could be controlled - Blood culture and urine culture has been so far negative Skin: #Ecchymoses over bilateral upper extremity Etiology currently unknown - Likely secondary to severe nutritional deficiencies and chronic steroid - Continue to monitor - May consider wound consult Health maintenance: Dispo: ICU Diet: N.p.o. DVT prophylaxis: Subcu heparin Lines: Right IJ hemodialysis catheter, right forearm PICC line, peripheral lines Code: Full code Patient plan of care was discussed with the Building Inspection Engineer, Dr. Vickey Colón, PGY2 Attending Provider Attestation/Addendum Patient seen and examined with the above resident, Taz Colón MD. I agree with the findings, assessment, and plan of care as documented except for any differences below. Patient with complicated history of perforation with chronic immunosuppresssion. Survived initial insult with complicated course of subphrenic abscess which required drainage. Patient now with persistent lactic acidosis and slow decline in past week. Patient with continued nutritional depletion and medicine did try to initiate TPN and aggressive replacement of multiple vitamins and thyroid hormone as well. Serial abdominal imaging excluded another intrabdominal catastrophe with no evidence of ischemic bowel and stable abscess. Concern for potential new leak though seems less likely, EGD to be done when more stable. In interim, she has also developed ARDS and severe pneumonia. Intubated and sedated on MV now. CRRT started due to persistent lactic acidosis. Volume resuscitation completed with PPV notable after arterial line placement and high pressures on CRRT. Given fluids with HD yesterday as well. Started on Vancomycin in addition to Zosyn now. Now with pulmonary etiology, must treat this though this would not explain lactic acid formation in last few days. Severe malnutrition has left her with limited reserves and presentation now could be reflection of this. Now in septic shock on multiple pressors, stress dose steroids also started. Continue on thiamine, pyrodoxine, and niacin along with TPN when available, aggresisve electrolyte replacement ongoing already in anticipation of refeeding also. CRRT will allow us to maintain fluid status in coming days. Will try to stabilize in coming 24 hours to assess for viability to transfer to bariatric center for additional workup and support. Discussed at length with and mother who were updated throughout the day. Prognosis very guarded at this time. Total critical care time: I personally spent 150 minutes for review of physiologic parameters, directing plan of care, coordination of care with other specialists, and counseling family at bedside throughout the day. This is exclusive of time spent teaching housestaff or performing any separate billable procedures. Patient remains at high risk for further morbidity and mortality warranting close monitoring and care only available in the ICU. Critical care services for septic shock, ARDS, Acute hypoxic respiratory failure, metabolic/lactic acidosis, and acute encephalopathy.
[2025-07-09 20:38] LABS: Lactate (Lactic Acid) 14.3 mMol/L (0.4-2.0)
[2025-07-09] MEDS: PHENYLEPHRINE HCL IV (20:45)
[2025-07-09] MEDS: SODIUM CHLORIDE 0.9% IV (20:45)
[2025-07-09] MEDS: Norepinephrine/NS 16mg/250ml 16 MG/250 ML BAG 164.306 MG IV (20:46)
[2025-07-09] MEDS: CALCIUM GLUC/NS 1000MG IVPB 1,000 MG/50 ML BAG 50 MG IV (20:51)
[2025-07-09 22:21] LABS: Base Excess -17 (-3-3); HCO3 11 mEq/L (20-26); O2 Saturation 100 % (91-98); PCO2 35 mmHg (32.0-48.0); PO2 200 mmHg (83-108)
[2025-07-09] MEDS: NOREPINEPHRINE INJ 32 MG in SODIUM CHLORIDE 0.9% 500 ML 468 ML 214.313 MG IV (22:28)
[2025-07-09 22:42] LABS: Allen Test Performed/OK; Inspired Oxygen, FIO2 100 %; Puncture Site Arterial Line; pH, Arterial 7.11 (7.35-7.45)
--- NOTE | 2025-07-09 22:44 | PC.NURSE ---
Tablo stopped at 2099 to change cart, when attempting to restart at 2140, 2199, and 2209, blood pressure and oxygen decreasing even with additional pressors. at the bedside gave orders to stop TABLO treatment at 2209 2/T not tolerating per VS.
[2025-07-09] MEDS: ALBUMIN HUMAN 5% IVPB 12.5 GM/250 ML BTL IV (22:57)
--- NOTE | 2025-07-09 23:31 | PD.RESEVENT ---
Documentation for date of: 07/09/25 Event Note Event Note: POA- : Lebron decided to switch patient to comfort measures. GOC with family - , mother, aunt and niece present for the discussion. Understand poor prognosis, all family members agree to switch CODE STATUS to DNR at this time. Plan of care discussed with attending Dr Magaña, - Jacinto Duvall M.D. PGY3 Disclaimer: Minor errors in philanthropy officer may be present as this note was dictated using voice recognition software.
[2025-07-09 23:34] LABS: Reflex Lactate? Y
[2025-07-10] VITALS: PULSE 96; RESP 24
[2025-07-10 00:10] LABS: Lactic Acid, 3 HR 25.0 mMol/L (0.4-2.0)
[2025-07-10 00:43] LABS: Albumin, Serum 2.2 gm/dL (3.5-5.0); Anion Gap 26 (7-16); BUN/Creatinine Ratio 10 Ratio (12-20); Blood Urea Nitrogen < 5 mg/dL (9-23); Calcium 8.1 mg/dL (8.3-10.6); Calcium (Corrected) 9.5 mg/dL (8.5-10.1); Chloride 103 mMol/L (98-107); Creatinine (Component) 0.5 mg/dL (0.6-1.3); Estimated Creatinine Clearance 132.6 mL/min (>60); Glucose 251 mg/dL (74-106); Osmolality,Calculated 282 (275-295); Phosphorous 4.5 mg/dL (2.4-5.1); Potassium 4.5 mMol/L (3.4-5.1); Sodium 139 mMol/L (136-145); eGFR > 60 See Note
[2025-07-10 00:44] LABS: Carbon Dioxide < 10.0 mMol/L (20.0-31.0)
--- NOTE | 2025-07-10 01:50 | PD.DPN ---
Documentation for date of: 07/10/25 Pronouncement Note Date and Time of Date of : 07/10/25 Time of : 01:45 Contributing Factors (1) Metabolic acidosis: (2) Electrolyte imbalance: (3) Confusion: (4) Community acquired pneumonia: (5) Lactic acidosis: Additional Data Confirmation of : no pulse, no respirations, no heart sounds, pupils fixed and dilated and other Family: at bedside Additional persons at bedside: other Attending/PCP notified?: Yes Attending physician: Troy Magaña MD Was code activated?: No Autopsy requested?: No Organ bank notified?: Yes Advance directives: No
--- NOTE | 2025-07-10 01:52 | DES_ITS ---
<Statement entered by Moncho Hurd MD - 07/26/25 11:36> Patient with rapid worsening of respiratory failure and acute encephalopathy in the setting of ARDS and severe pneumonia. Patient with severe protein calorie malnutrition and limited reserve despite aggressive therapy with antibiotic regimen. Patient with increasing pressor requirements overnight despite aggressive fluid replacement and optimization with mechanical ventilation. Anti-A biotics as antifungal regimen in place with limited improvement in the previous 24 hours. Patient's family elected overnight to transition to comfort measures only. Patient was pronounced by overnight resident and hospitalist attending. Documentation for date of: 07/10/25 Summary Date and Time Date of admission: 07/04/25 18:33 Date of : 07/10/25 Time of : 01:45 Summary Details: On the night of 07/09/2025, patient continued to have worsening lactic acidosis with increasing pressor requirements while on CRRT. Patient maxed out on norepinephrine and vasopressin, additionally had phenylephrine added. Patient started to have diffuse ecchymoses develop throughout the body, fibrinogen returned 82 indicative of DIC. Family was contacted by the night ICU resident and family opted to pursue DNR/DNI and comfort measures in the setting of refrac tory shock, ARDS, and DIC. Hospital Course: Patient is a 55-year-old female with past medical history of hypertension, hypothyroidism, rheumatoid arthritis, on chronic steroid therapy, gastric bypass, perforated gastric jejunostomy s/p repair presented initially to the ED on 07/04/2025 with altered mental status. Patient had history of admissions in the last 6 months for complications related to the perforation and recurrent abdominal abscesses. On ER evaluation patient was found to be in sepsis with an elevated lactate at 4.8, electrolyte disturbances, and ESA. Patient was started on broad spectrum antibiotics with vancomycin and Zosyn. CT abdomen/pelvis at that time showed left base pneumonia, small left pleural effusion, and small left subphrenic abscess measuring 14 mm in thickness above the spleen. General surgery and IR services were consulted who both determined that abscess was too small to drain. Patient was determined to also have starvation ketosis and have severe malnutrition. TPN was planned to be started with aggressive repletion of multivitamins and thyroid hormone. Despite IV fluid resuscitation lactic acidosis persisted and uptrended, patient had a temporary dialysis catheter placed and was started on hemodialysis. After the first dialysis session on 07/08/2025, rapid response was called in the evening for altered mental status and increased lethargy. Blood pressure was initially unreadable. Patient was then upgraded to ICU care. She required pressor support to maintain MAP >65. Repeat CT chest/abdomen/pelvis did not show any obvious new sources of sepsis and subphrenic abscess again remained the same size of 14 mm too small for intervention. Imaging revealed ARDS and severe pneumonia. After CT was taken the morning of 07/09/2025, patient was noted to have significantly increased O2 requirements and was now barely arousable to sternal rub, decision was made to intubate and ventilate. GI was additionally consulted and agreed for EGD to be done and was completed on 07/09/2025 evening, which did not show any obvious perforations or bleeding. CRRT was started that day. Unfortunately the patient continued to have refractory lactic acidosis with increasing pressor requirements. Patient developed DIC and started receiving PRBCs and cryoprecipitate, despite this continued to have diffuse ecchymoses. Ultimately family decided to pursue comfort measures, and the patient at 1:45 am on 07/10/2025. Additional Data Attending physician: Moncho Hurd MD Visit Providers Provider Primary care physician: Corazon Hermosillo MD Consults: 07/04/25 18:39 Referral Wound Care Stat Comment: 07/04/25 18:43 Consult to General Surgery Routine Comment: Consulting Provider: Varsha Thao 07/04/25 20:47 Referral Registered Dietitian Routine Comment: hx of bariatric sleeve and vitamin deficiencies 07/08/25 05:10 Referral Registered Dietitian Stat Comment: Referral Wound Care Stat Comment: 07/08/25 10:19 Consult to Appliance Technician Routine Comment: Consulting Provider: Moncho Hurd I 07/08/25 11:27 Consult to Gastroenterology Routine Comment: SIBO? Consulting Provider: Yanna Palacios 07/08/25 14:43 Consult to Nephrology Routine Comment: acidosis Consulting Provider: Isidro Doyle 07/09/25 23:12 Referral Keyur Stat Comment: Diagnosis Contributing Factors (1) Metabolic acidosis: (2) Electrolyte imbalance: (3) Confusion: (4) Community acquired pneumonia: (5) Lactic acidosis: Discharge Plan Plan Patient Disposition: Patient condition on transfer: Stable Prescriptions/Referrals Referrals: Corazon Hermosillo MD [Primary Care Provider, Family Practice] Patient/Caregiver Discharge Instructions Print Language: Greek Discharge Order Discharge Orders: Discharge (Routine); Ordered 07/10/25 Ordered By: Jacinto Duvall
[2025-07-10 14:38] LABS: Cocci Serology, IgG Negative (Negative)
--- NOTE | 2025-07-10 15:22 | PD.ADDPROG ---
Addendum Progress Note Addendum Date of report being addended: 07/09/25 Narrative: After conventional dialysis was ordered-Dr. Hurd requested for CRRT. Patient with continued lactic acidosis. CRRT for 16 hours Blood flow [id number] Dialysate flow 100 saline flush 50 Regular dialysate Ultrafiltration none 2K 40 bicarbonate 3.5 calcium bath ordered. Went back and saw the patient in ICU while on CRRT. Critical care time spent today more than 45 minutes regarding plan of care and disease management. Prognosis remains guarded. Please see flowsheet for further details
[2025-07-16 06:57] LABS: Vitamin B1 (Thiamine)* 276 nmol/L (8-30); Vitamin B6, Plasma* 13.7 ng/mL (2.1-21.7)
== END 2025-07-10 03:30 | disposition expired | DRG 871 ==
LOC: SERX 17:38 → SERHOLD 18:48 → S2NX 20:52 → S2SX 07-09 21:17 → S2NX 07-13 11:33
PROVIDERS: Internal Medicine Critical Care Medicine; Nurse Practitioner Family; Specialist; Student in an Organized Health Care Education/Training Program; Admitting Provider Student in an Organized Health Care Education/Training Program; PCP Family Medicine; Visit Provider Student in an Organized Health Care Education/Training Program
PROC: 0DJ08ZZ Inspection of Upper Intestinal Tract, Via Natural or Artificial Opening Endoscopic (ICD-10-PCS; CPT 43239; principal; 2025-07-09 21:00)
DX: A41.9 Sepsis, unspecified organism (principal); D65 Disseminated intravascular coagulation [defibrination syndrome]; E43 Unspecified severe protein-calorie malnutrition; J18.9 Pneumonia, unspecified organism; K65.1 Peritoneal abscess; G93.41 Metabolic encephalopathy; R65.21 Severe sepsis with septic shock; J91.8 Pleural effusion in other conditions classified elsewhere; E87.20 Acidosis, unspecified; I47.10 Supraventricular tachycardia, unspecified; N17.9 Acute kidney failure, unspecified; M06.9 Rheumatoid arthritis, unspecified; I10 Essential (primary) hypertension; E03.9 Hypothyroidism, unspecified; E87.6 Hypokalemia; E83.42 Hypomagnesemia; D53.9 Nutritional anemia, unspecified; E77.8 Other disorders of glycoprotein metabolism; E83.39 Other disorders of phosphorus metabolism; E83.51 Hypocalcemia; E86.1 Hypovolemia; E88.09 Other disorders of plasma-protein metabolism, not elsewhere classified; N20.0 Calculus of kidney; Z22.322 Carrier or suspected carrier of Methicillin resistant Staphylococcus aureus; Z90.49 Acquired absence of other specified parts of digestive tract; Z98.84 Bariatric surgery status; Z51.5 Encounter for palliative care; Z78.1 Physical restraint status; Z79.52 Long term (current) use of systemic steroids; Z79.890 Hormone replacement therapy; Z87.440 Personal history of urinary (tract) infections; Z93.4 Other artificial openings of gastrointestinal tract status; Z99.2 Dependence on renal dialysis
CPT/HCPCS: 36415; 36600; 70450; 71045; 71260; 74177; 80053; 80061; 80069; 80202; 80307; 81001; 82010; 82140; 82306; 82550; 82607; 82728; 82746; 82803; 83036; 83540; 83550; 83605; 83615; 83690; 83735; 83880; 83970; 84100; 84145; 84207; 84425; 84439; 84443; 84481; 84484; 85025; 85046; 85384; 85610; 85730; 86331; 86635; 86850; 86900; 86901; 86923; 86927; 87040; 87081; 87086; 87106; 87186; 87205; 87400; 87811; 93005; 94002; 96361; 96365; 96366; 96372; 96375; 99284; A4649; C1751; C1894; J0131; J0612; J0613; J1200; J1642; J1643; J1644; J1720; J2250; J2251; J2270; J2371; J2405; J2470; J2543; J2598; J2704; J2919; J3010; J3370; J3372; J3375; J3411; J3415; J3475; J3480; J3490; J7030; J7042; J7050; J7060; J7120; J7121; J7999; P9012; P9016; P9045; P9047; Q9967; A9270